=== PATIENT | male | born 1990 | race Caucasian/White ===

== ENCOUNTER 2017-05-15 02:38 | Inpatient (IN) | payer OTHER ==
[2017-05-15 03:05] VITALS: BMI 38.9
--- NOTE | 2017-05-15 03:08 | PDOC ---
History of Present Illness - General Chief Complaint: Tremors Stated Complaint: ABD PAIN/ALCOHOL WITHDRAWAL Time Seen by Provider: 05/15/17 03:01 History Source: Patient - History of Present Illness Initial Comments: 05/15/17 03:56 27-year-old male complaining of tremors, epigastric pain, yellowing of skin. Patient 1 month ago stopped drinking alcohol, patient was prior to an everyday drinker a pint of vodka daily. Patient reports since stopping alcohol patient has noted tremors, yellowing of skin and sclera with upper abdominal pain. Denies nausea, vomiting, bleeding, headache, dizziness.Patient reports that he is currently on herbal life detox supplements. Although withdrawal symptoms have gotten better, patient read online that he can get seizures which caused him to seek medical attention tonight. patient reports drinking continuously since age 16 and has been drinking heavily after father passing away. 05/15/17 06:08 Past History - Past Medical History Allergies/Adverse Reactions: Allergies Allergy/AdvReac Type Severity Reaction Status Date / Time No Known Allergies Allergy Verified 05/15/17 03:02 Home Medications: Ambulatory Orders Cephalexin [Keflex] 500 mg PO QID #40 capsule 12/06/15 Oxycodone HCl/Acetaminophen [Percocet 5-325 mg Tablet] 1 - 2 tab PO Q4H #20 tablet MDD 10 12/06/15 - Suicide/Smoking/Psychosocial Hx Smoking Status: No Smoking History: Never smoked Have you smoked in the past 12 months: No Number of Cigarettes Smoked Daily: 0 Information on smoking cessation initiated: No Hx Alcohol Use: Yes Drug/Substance Use Hx: No Substance Use Type: None Review of Systems - Review of Systems Able to Perform ROS?: Yes Is the patient limited Marshallese proficient: No Constitutional: No: Symptoms Reported, See HPI, Chills, Diaphoresis, Fever, Loss of Appetite, Malaise, Night Sweats, Weakness, Weight Stable, Unintentional Wgt. Loss, Unexplained wgt Loss, Other Integumentary: Yes: Change in Color (icteric sclera, jaundiced skin) Neurological: Yes: Tremors *Physical Exam - Vital Signs Last Vital Signs Temp Pulse Resp BP Pulse Ox 98.7 F 121 H 14 140/72 98 05/15/17 03:03 05/15/17 03:03 05/15/17 03:03 05/15/17 03:03 05/15/17 03:03 - Physical Exam General Appearance: Yes: Appropriately Dressed Gastrointestinal/Abdominal: positive: Normal Bowel Sounds, Tender (mild epigastric tender ness), Soft Integumentary: positive: Normal Color, Dry, Warm, Jaundice (icteric sclera and jaundix) Neurologic: positive: Fully Oriented, Alert, Normal Mood/Affect Heart Score/ECG Review - ECG Intrepretation Rhythm: Regular Rhythm Comment:: 05/15/17 05:07 105: sinus tachycardia; prolonged QT/QTC 394/520ms ED Treatment Course - LABORATORY CBC & Chemistry Diagram: 05/15/17 03:33 05/15/17 03:33 Medical Decision Making - Medical Decision Making 05/15/17 05:12 A: alocohol withdrawal P: cbc cmp magnesium LFTS 05/15/17 05:54 CTAP: Hepatosplenomegaly with nodule liver contour and multiple collateral vessels anteriorly abdomen and right retroperitoneum, suspicious for cirrhosis and portal hypertension. He portal vein. No bowel obstruction colitis diverticulitis, free fluid or free air. Normal appendix unremarkable pancreas kidneys and gallbladder. Tiny umbilical hernia containing fat. Minimal left gynecomastia. 05/15/17 06:09 patient signed out to Dr. Retana *DC/Admit/Observation/Transfer Diagnosis at time of Disposition: Hyperbilirubinemia, Prolonged Q-T interval on ECG Alcohol withdrawal Qualifiers: Complication of substance-induced condition: with unspecified complication Qualified Code(s): F10.239 - Alcohol dependence with withdrawal, unspecified Liver cirrhosis, alcoholic Qualifiers: Ascites presence: without ascites Qualified Code(s): K70.30 - Alcoholic cirrhosis of liver without ascites - Discharge Dispostion Admit: Yes - Referrals - Patient Instructions - Post Discharge Activity
[2017-05-15] MEDS ORDERED: FOLIC ACID INJECTION - 1 MG, THIAMINE HCL 100 MG, MULTIVIT INJECTION ADULT 10 ML in SOD... IVPB ONE (03:09)
[2017-05-15] MEDS ORDERED: chlordiazePOXIDE HCL 25 MG CAPSULE PO ONE (03:22)
--- NOTE | 2017-05-15 04:09 | PDOC ---
*Physical Exam - Vital Signs Last Vital Signs Temp Pulse Resp BP Pulse Ox 98.7 F 121 H 14 140/72 98 05/15/17 03:03 05/15/17 03:03 05/15/17 03:03 05/15/17 03:03 05/15/17 03:03 ED Treatment Course - LABORATORY CBC & Chemistry Diagram: 05/15/17 03:33 05/15/17 03:33 - ADDITIONAL ORDERS Additional order review: Laboratory Results 05/15/17 03:33 Total Amylase 30 Medical Decision Making - Medical Decision Making 05/15/17 04:09 agree with care from WALESKA Cleary *DC/Admit/Observation/Transfer Diagnosis at time of Disposition: Alcohol withdrawal, Hyperbilirubinemia, Liver cirrhosis, alcoholic, Prolonged Q -T interval on ECG - Referrals - Patient Instructions - Post Discharge Activity
[2017-05-15 04:22] LABS: ALBUMIN 2.5 g/dl (3.4-5.0); ANION GAP 9 (8-16); BLOOD UREA NITROGEN 13 mg/dL (7-18); CALCIUM 7.7 mg/dL (8.5-10.1); CHLORIDE 94 mmol/L (98-107); CO2 29 mmol/L (21-32); CREATININE 0.6 mg/dL (0.7-1.3); GLUCOSE,RANDOM 100 mg/dL (74-106); LIPASE 102 U/L (73-393); SGPT/ALT 48 U/L (12-78); SODIUM 132 mmol/L (136-145)
[2017-05-15] MEDS ORDERED: chlordiazePOXIDE HCL 25 MG CAPSULE ONE ×2 (04:23→10:22)
[2017-05-15 04:24] LABS: ALK PHOS 205 U/L (45-117); BILIRUBIN,TOTAL 11.3 mg/dL (0.2-1.0)
[2017-05-15 04:25] LABS: POTASSIUM 3.7 mmol/L (3.5-5.1); SGOT/AST 134 U/L (15-37)
[2017-05-15] MEDS ORDERED: SODIUM CHLORIDE 1,000 ML IV STA (05:09)
[2017-05-15 05:37] LABS: HEMATOCRIT 37.7 % (35.4-49); RBC 3.91 M/mm3 (4.00-5.60); WHITE BLOOD COUNT 8.2 K/mm3 (4.0-10.0)
[2017-05-15 05:38] LABS: BASO % 0.9 % (0-2.0); EOS % 4.3 % (0-4.5); LYMPH % 15.6 % (8-40); MCH 33.3 pg (25.7-33.7); MCHC 34.6 g/dl (32.0-35.9); MEAN CELL VOLUME 96.3 fl (80-96); MEAN PLT VOLUME 9.9 fl (7.5-11.1); MONO % 12.1 % (3.8-10.2); NEUT % 67.1 % (42.8-82.8); PLATELET COUNT 86 K/MM3 (134-434); RDW 14.4 % (11.9-15.9)
[2017-05-15] MEDS ORDERED: chlordiazePOXIDE HCL 25 MG CAPSULE PO PRN (06:08)
[2017-05-15 06:10] LABS: URINE APPEARANCE CLEAR; URINE BLOOD NEGATIVE (NEGATIVE); URINE GLUCOSE (UA) NEGATIVE (NEGATIVE); URINE KETONE TRACE (NEGATIVE); URINE LEUK ESTERASE NEGATIVE (NEGATIVE); URINE NITRITE NEGATIVE (NEGATIVE); URINE PROTEIN NEGATIVE (NEGATIVE); URINE UROBILINOGEN 4.0 E.U/dl mg/dL (0.2-1.0)
[2017-05-15 06:12] LABS: URINE COLOR DARK YELLOW
--- NOTE | 2017-05-15 10:05 | CON.GI ---
Consult Consult Specialty:: GI Reason for Consultation:: cirrhosis - History of Present Illness History of Present Illness: Chart reviewed. 27 yo M w/ significant h/o alcohol dependence presented to the ED with abd pain x 2 days. Patient endorses daily drinking of 1 pint of hard liquor since age of 16. He has never stopped drinking or been sober. He has also never been through alcohol detox/rehab. His last drink was 2 months ago and he started detoxing himself using herbal supplement with good result. However, he started to notice tremors 2 weeks ago and abd pain 2 days ago which made him come in to the ED. At the time of this encounter, the patient is calm, asymptomatic. States tremors improved with medications he received in ED. His only complaint is developing tremors x 2 weeks 2 months after complete sensation of alcohol. Denies fever, chills, nausea, vomiting, hematemesis, dysphagia, odynophagia, jaundice, abdominal pain, fluctuating abdominal girth, altered bowels, pencil- thin, or ribbon-like stools. Denies melena, hematochezia, weight loss. Never had liver work up, or EGD. - History Source History Provided By: Patient, Medical Record - Alcohol/Substance Use Hx Alcohol Use: Yes - Smoking History Smoking history: Never smoked Have you smoked in the past 12 months: No Aproximately how many cigarettes per day: 0 Home Medications - Allergies Allergies/Adverse Reactions: Allergies Allergy/AdvReac Type Severity Reaction Status Date / Time No Known Allergies Allergy Verified 05/15/17 03:02 - Home Medications Home Medications: Ambulatory Orders NK [No Known Home Medication] 05/15/17 Family Disease History - Family Disease History Family History: Unremarkable Review of Systems Findings/Remarks: as per HPI, H&P Physical Exam-GI Vital Signs: Vital Signs Temperature 98.7 F 05/15/17 03:03 Pulse Rate 121 H 05/15/17 03:03 Respiratory Rate 14 05/15/17 03:03 Blood Pressure 140/72 05/15/17 03:03 O2 Sat by Pulse Oximetry (%) 98 05/15/17 03:03 Constitutional: Yes: Well Nourished, No Distress, Calm Eyes: Yes: Conjunctiva Clear HENT: Yes: Atraumatic Neck: Yes: Supple Cardiovascular: Yes: Regular Rate and Rhythm Respiratory: Yes: Regular Gastrointestinal Inspection: No: Ascites, Distention ...Auscultate: Yes: Normoactive Bowel Sounds ...Palpate: Yes: Soft. No: Firm/Rigid, Guarding, Mass, Tenderness, Tenderness, Rebound ...Percussion: No: Fluid Wave Neurological: Yes: Alert, Oriented Labs: CBC, BMP 05/15/17 03:33 05/15/17 03:33 Laboratory Tests 05/15/17 05/15/17 05/15/17 03:30 03:33 03:33 WBC 8.2 RBC 3.91 L Hgb 13.0 Hct 37.7 MCV 96.3 H MCH 33.3 MCHC 34.6 RDW 14.4 Plt Count 86 L MPV 9.9 Neutrophils % 67.1 Lymphocytes % 15.6 Monocytes % 12.1 H Eosinophils % 4.3 Basophils % 0.9 PT with INR INR PTT (Actin FS) Sodium 132 L Potassium 3.7 Chloride 94 L Carbon Dioxide 29 Anion Gap 9 BUN 13 Creatinine 0.6 L Creat Clearance w eGFR > 60 Random Glucose 100 Calcium 7.7 L Magnesium 1.3 L Total Bilirubin 11.3 H Direct Bilirubin AST 134 H ALT 48 Alkaline Phosphatase 205 H Total Protein 8.0 Albumin 2.5 L Total Amylase Lipase 102 Vitamin B12 Urine Color Urine Appearance Urine pH Ur Specific [place] Urine Protein Urine Glucose (UA) Urine Ketones Urine Blood Urine Nitrite Urine Bilirubin Urine Urobilinogen Ur Leukocyte Esterase Alcohol, Quantitative 05/15/17 05/15/17 05/15/17 03:33 03:33 05:56 WBC RBC Hgb Hct MCV MCH MCHC RDW Plt Count MPV Neutrophils % Lymphocytes % Monocytes % Eosinophils % Basophils % PT with INR INR PTT (Actin FS) Sodium Potassium Chloride Carbon Dioxide Anion Gap BUN Creatinine Creat Clearance w eGFR Random Glucose Calcium Magnesium Total Bilirubin Direct Bilirubin AST ALT Alkaline Phosphatase Total Protein Albumin Total Amylase 30 Lipase Vitamin B12 Urine Color Dark yellow Urine Appearance Clear Urine pH 6.0 Ur Specific [place] 1.008 Urine Protein Negative Urine Glucose (UA) Negative Urine Ketones Trace H Urine Blood Negative Urine Nitrite Negative Urine Bilirubin 2.0 Urine Urobilinogen 4.0 e.u/dl Ur Leukocyte Esterase Negative Alcohol, Quantitative < 5.0 05/15/17 05/15/17 05/16/17 10:30 10:30 06:20 WBC 6.5 RBC 3.83 L Hgb 12.3 Hct 37.2 MCV 97.4 H MCH 32.3 MCHC 33.1 RDW 14.9 Plt Count 88 L MPV 9.7 Neutrophils % 54.7 Lymphocytes % 22.3 D Monocytes % 15.1 H Eosinophils % 6.5 H Basophils % 1.4 PT with INR 20.20 H INR 1.79 H PTT (Actin FS) Sodium Potassium Chloride Carbon Dioxide Anion Gap BUN Creatinine Creat Clearance w eGFR Random Glucose Calcium Magnesium Total Bilirubin Direct Bilirubin 7.7 H AST ALT Alkaline Phosphatase Total Protein Albumin Total Amylase Lipase Vitamin B12 Urine Color Urine Appearance Urine pH Ur Specific [place] Urine Protein Urine Glucose (UA) Urine Ketones Urine Blood Urine Nitrite Urine Bilirubin Urine Urobilinogen Ur Leukocyte Esterase Alcohol, Quantitative 05/16/17 05/16/17 05/16/17 06:20 06:20 06:20 WBC RBC Hgb Hct MCV MCH MCHC RDW Plt Count MPV Neutrophils % Lymphocytes % Monocytes % Eosinophils % Basophils % PT with INR 19.20 H INR 1.70 H PTT (Actin FS) 33.7 Sodium 135 L Potassium 3.0 L Chloride 101 Carbon Dioxide 26 Anion Gap 8 BUN 5 L D Creatinine 0.4 L D Creat Clearance w eGFR > 60 Random Glucose 88 Calcium 7.4 L Magnesium Total Bilirubin 9.9 H Direct Bilirubin AST 103 H D ALT 42 Alkaline Phosphatase 180 H Total Protein 7.0 Albumin 2.2 L Total Amylase Lipase Vitamin B12 2712 H Urine Color Urine Appearance Urine pH Ur Specific [place] Urine Protein Urine Glucose (UA) Urine Ketones Urine Blood Urine Nitrite Urine Bilirubin Urine Urobilinogen Ur Leukocyte Esterase Alcohol, Quantitative 05/16/17 06:20 WBC RBC Hgb Hct MCV MCH MCHC RDW Plt Count MPV Neutrophils % Lymphocytes % Monocytes % Eosinophils % Basophils % PT with INR INR PTT (Actin FS) Sodium Potassium Chloride Carbon Dioxide Anion Gap BUN Creatinine Creat Clearance w eGFR Random Glucose Calcium Magnesium 1.7 L D Total Bilirubin Direct Bilirubin 7.3 H AST ALT Alkaline Phosphatase Total Protein Albumin Total Amylase Lipase Vitamin B12 Urine Color Urine Appearance Urine pH Ur Specific [place] Urine Protein Urine Glucose (UA) Urine Ketones Urine Blood Urine Nitrite Urine Bilirubin Urine Urobilinogen Ur Leukocyte Esterase Alcohol, Quantitative Imaging - Results Cat Scan: Report Reviewed Problem List - Problems (1) Alcohol withdrawal Code(s): F10.239 - ALCOHOL DEPENDENCE WITH WITHDRAWAL, UNSPECIFIED Qualifiers: Complication of substance-induced condition: with unspecified complication Qualified Code(s): F10.239 - Alcohol dependence with withdrawal, unspecified (2) Liver cirrhosis, alcoholic Code(s): K70.30 - ALCOHOLIC CIRRHOSIS OF LIVER WITHOUT ASCITES Qualifiers: Ascites presence: without ascites Qualified Code(s): K70.30 - Alcoholic cirrhosis of liver without ascites Assessment/Plan A 27 yom with alcoholic liver cirrhosis. Portal hypertension. No ascites, HRS. MELD 21. DF 48 r/o other concurrent liver processes incl viral. Withdrawal protocol and electrolytes correction as needed. Plan EGD for EGV surveillance ? steroids if HBV negative ? Counselling.
[2017-05-15 10:58] LABS: INR 1.79 (0.82-1.09); PROTHROMBIN TIME (PATIENT) 20.2 SEC (9.98-11.88)
[2017-05-15] MEDS ORDERED: chlordiazePOXIDE HCL 25 MG CAPSULE PO SCH (11:00)
--- NOTE | 2017-05-15 12:00 | EKG ---
Test Reason : Blood Pressure : / mmHG Vent. Rate : 105 BPM Atrial Rate : 105 BPM P-R Int : 136 ms QRS Dur : 086 ms QT Int : 394 ms P-R-T Axes : 051 001 022 degrees QTc Int : 520 ms SINUS TACHYCARDIA PROLONGED QT ABNORMAL ECG NO PREVIOUS ECGS AVAILABLE Confirmed by CAPRICE VELAZQUEZ MD ([id number]) on 05/15/2017 12:00:16 PM Referred By: Confirmed By:CAPRICE VELAZQUEZ MD
--- NOTE | 2017-05-15 13:13 | PN ---
Teaching Attending Note Name of Resident: Danielito Meeks ATTENDING PHYSICIAN STATEMENT I saw and evaluated the patient. I reviewed the resident's note and discussed the case with the resident. I agree with the resident's findings and plan as documented. SUBJECTIVE: CC: upper abd pain and jaundice . HPI: 27 y/o man with h/o alcohol dependence , quit 2 months ago , who presented with upper abd pain and jaundice. he used to drink one Pint of alcohol a day and stopped 2 months ago. He experienced mild withdrawal sx at that time. 2 weeks ago, he started having tremors and for this he started taking natural products for detox. he denies any recent alcohol use. 2 weeks ago he started noticing jaundice , and 1 week ago he had abd pain in epigastric area. No fever , chills, hematochezia, melena , pale stool or dark urine. denies any N /V. OBJECTIVE: NAD , round equal pupils , reactive to light , no facial droop, tongue and uvula at mid line MMM, no LAP in neck, jaundiced MM, icteric sclera. no JVD CV: RRR, no MRG Lungs : CATB Abd: soft, NT, ND , NO shifting dullness, LIver is palpated 5 cm below costal margin at Mid clavicular line. spleen is not palpated . Nl BS Ext: no edema . No erythema . ASSESSMENT AND PLAN: 27 y/o man with h/o alcohol dependence , quit 2 months ago, who presented with upper abd pain and jaundice. 1- Jaundice: likely from cirrhosis , but need to r/o any biliary tree pathology ( stone /cholangiocarcinoma ). CT scan reviewed. No suspicion clinically for cholecystitis . - obtain MRCP. - GI consult pending. - might need EGD to r/o varices. - Check Occult blood in stool. - avoid hepatotoxics 2- Alcohol dependence. quit 2 months ago. was tachycardic with minimal tremor reported at presentation . - if this is true ( quit 2 months ago), then he is not in WD - was started on Libruim last night. will place on PRN ativan ( liver injury) . - received banana bag. No signs of Wernicke's - give thiamine and folate daily 3- abd pain, likely due to hepatomegaly.could be due to gastritis . no evidence of pancreatitis . now resolved - MRCP as above - possible EGD - PPI SCDs . ambulatory
[2017-05-15] MEDS ORDERED: LORazepam 1 MG TABLET PO PRN (13:22)
[2017-05-15] MEDS: PANTOPRAZOLE 40 MG TABLET (FP) PO SCH (13:35)
--- NOTE | 2017-05-15 14:44 | HP ---
CC: Abd pain PCP: None HPI: 27 yo M w/ significant h/o alcohol dependence presented to the ED with abd pain x 2 days. Patient endorses daily drinking of 1 pint of hard liquor since age of 16. He has never stopped drinking or been sober. He has also never been through alcohol detox/rehab. His last drink was 2 months ago and he started detoxing himself using herbal supplement with good result. However, he started to notice tremors 2 weeks ago and abd pain 2 days ago which made him come in to the ED. The abd pain is located in upper quadrants, travels from L/R to R/L, vague quality, 10/14, no alleviating or aggravating factors, not a/w food intake or bowel movement. Denies fever, chills, dizziness, chest pain, sob, urinary sx, diarrhea, constipation, n/v, visual/auditory/tactile hallucination. PMH: None PSH: None Social History: Born and raised in [place]. Lives at home. 1 pint of hard liquor everyday since age 16, denies smoking and drug use Family History: Father of liver complication from chronic alcohol use, mother alive and has HTN. Allergy: NKDA Home Meds: None ROS: Constitutional: no fever, +loss of appetite, no weakness or weight change HEENT: +yellowing of eyes and tongue, No headache, nasal congestion, sore throat , ear pain, vision change Skin: No rash or lesion Cardiovascular: No chest pain or sob Pulmonary: No cough (dry or productive), colored sputum Endocrine: No polyuria, polydipsia, skin /hair changes, heat/cold intolerance. GI: +abd pain, no nausea or vomiting : No frequency, urgency, dysuria, or hematuria. MSK: No joint or muscle pain Psychology: No depression, anxiety, or insomnia. Physical Examination Temp Pulse Resp BP Pulse Ox 98.4 F 91 H 16 105/53 98 05/15/17 11:57 05/15/17 11:57 05/15/17 11:57 05/15/17 11:57 05/15/17 11:57 General: Patient sitting at edge of bed, in no obvious discomfort or distress, AAO x 3. able to speak full sentences, appropriate to stated age. ENT: sclerus icterus, Jaundice in oropharynx, ventral tongue, however, clear with no lesions/erythema. Neck: Supple with no LAD or masses. Lymph Nodes: No cervical or inguinal LAD. Cardiovascular: Tachycardic, regular rythm, S1 and S2 normal, no m/g/r. Lungs: CTAB Abdomen: normoactive bs, nd, nt, 2-3 cm liver palpated below costal edge. Extremeties: No peripheral edema, +2 peripheral pulses Neuro: CNII-XII grossly intact, gait normal, negative finger to nose test, mild tremor noted on outstretched hands Imaging: CT abd on 05/15: hepatosplenomegaly, hypodense and heterogeneous pelvic parenchyma and varices. EKG on 05/15: NSR, 105bmp, Prolonged QTc 520. A/P: 27 yo M w/ significant h/o alcohol dependence admitted for alcohol withdrawal. Alcohol withdrawal - With autonomic instability: tachycardia and hypotension and mild tremors - d/c librium protocol in light of liver cirrhosis - Ativan 1mg Q4H PRN for withdrawal sx - PO thiamine and folic acid - B12 level Jaundice - 2/2 Liver cirrhosis from chronic alcohol use (AST:ALT = 2:1) - Likely intrahepatic injury but cannot r/o extrahepatic obstruction based on indirect/direct bili * MRCP scheduled - Cont. to trend LFT - GI consult * may need EGD to r/o varices * f/u occult blood QT prolongation - QTc 520 - Daily EKG to monitor changes - Avoid QT prolonging medications Hyponatremia - Mild - Likely hypovolumic hyponatremia - Cont. to monitor FEN - IVF not indicated - Replete lytes prn - Regular diet Prophylaxis - DVT: SCDs - GI: on protonix Dispo - Admit for autonomic instability due to alcohol withdrawal - Pt interested in alcohol detox upon medical stabilization, Will d/c to [facility] for alcohol detox Danielito Meeks MD, Medicine PGY2 Pager: [phone] Visit type - Emergency Visit Emergency Visit: Yes ED Registration Date: 05/15/17 Care time: The patient presented to the Emergency Department on the above date and was hospitalized for further evaluation of their emergent condition. - New Patient This patient is new to me today: Yes Date on this admission: 05/15/17 - Critical Care Critical Care patient: No
[2017-05-15] MEDS ORDERED: MAGNESIUM SULF 50% (8.12 MEQ/2 ML-1 GM VIAL) IVPB ONE (16:36)
[2017-05-15] MEDS ORDERED: MAGNESIUM SULFATE IN WATER 2 GM/50 ML IVPB IVPB ONE (16:45)
[2017-05-15] MEDS ORDERED: FLU VACCINE QUAD 60 MCG/0.5 ML (MDV 17-18) IM ONE (17:30)
[2017-05-16 07:47] LABS: BASO % 1.4 % (0-2.0); EOS % 6.5 % (0-4.5); HEMATOCRIT 37.2 % (35.4-49); HEMOGLOBIN 12.3 GM/dL (11.7-16.9); INR 1.7 (0.82-1.09); LYMPH % 22.3 % (8-40); MCH 32.3 pg (25.7-33.7); MCHC 33.1 g/dl (32.0-35.9); MEAN CELL VOLUME 97.4 fl (80-96); MEAN PLT VOLUME 9.7 fl (7.5-11.1); MONO % 15.1 % (3.8-10.2); NEUT % 54.7 % (42.8-82.8); PLATELET COUNT 88 K/MM3 (134-434); PROTHROMBIN TIME (PATIENT) 19.2 SEC (9.98-11.88); RBC 3.83 M/mm3 (4.00-5.60); RDW 14.9 % (11.9-15.9); WHITE BLOOD COUNT 6.5 K/mm3 (4.0-10.0)
[2017-05-16 07:49] LABS: BILIRUBIN,DIRECT 7.3 mg/dL (0.0-0.2); MAGNESIUM 1.7 mg/dL (1.8-2.4)
[2017-05-16 07:50] LABS: ACTIVATED PTT 33.7 SECONDS (26.9-34.4)
[2017-05-16 07:53] LABS: ALBUMIN 2.2 g/dl (3.4-5.0); ANION GAP 8 (8-16); BLOOD UREA NITROGEN 5 mg/dL (7-18); CALCIUM 7.4 mg/dL (8.5-10.1); CHLORIDE 101 mmol/L (98-107); CO2 26 mmol/L (21-32); GLUCOSE,RANDOM 88 mg/dL (74-106); SODIUM 135 mmol/L (136-145)
[2017-05-16 07:57] LABS: ALK PHOS 180 U/L (45-117); BILIRUBIN,TOTAL 9.9 mg/dL (0.2-1.0); CREATININE 0.4 mg/dL (0.7-1.3); SGOT/AST 103 U/L (15-37); SGPT/ALT 42 U/L (12-78)
[2017-05-16] MEDS ORDERED: POTASSIUM CHLORIDE TABS 20 MEQ TABLET.ER (FP) PO ONE (09:15)
[2017-05-16] MEDS ORDERED: THIAMINE HCL 100 MG TABLET (FP) PO SCH ×2 (10:00→22:00)
[2017-05-16] MEDS: PANTOPRAZOLE 40 MG TABLET (FP) PO SCH ×3 (10:36→21:35)
[2017-05-16] MEDS: FOLIC ACID 1 MG TABLET (FP) PO SCH (10:36)
[2017-05-16] MEDS ORDERED: chlordiazePOXIDE HCL 25 MG CAPSULE PO SCH ×2 (11:00→23:00)
--- NOTE | 2017-05-16 13:49 | PROC ---
Endoscopy Procedure Endoscopy procedure completed. Please see scanned procedure report. 3 columns esophageal varices, grade III, w/o stigmata of bleeding. Banded Portal hypertensive gastropathy noted, biopsied ppi bid carafate nadolol clear liquid diet
--- NOTE | 2017-05-16 13:56 | EKG ---
Test Reason : Blood Pressure : / mmHG Vent. Rate : 089 BPM Atrial Rate : 089 BPM P-R Int : 132 ms QRS Dur : 094 ms QT Int : 404 ms P-R-T Axes : 037 -12 018 degrees QTc Int : 491 ms NORMAL SINUS RHYTHM PROLONGED QT ABNORMAL ECG WHEN COMPARED WITH ECG OF 16-MAY-2017 08:42, NO SIGNIFICANT CHANGE WAS FOUND Confirmed by DORIS RODGERS MD ([id number]) on 05/16/2017 1:56:05 PM Referred By: Confirmed By:DORIS RODGERS MD
--- NOTE | 2017-05-16 14:15 | EKG ---
Test Reason : Blood Pressure : / mmHG Vent. Rate : 096 BPM Atrial Rate : 096 BPM P-R Int : 138 ms QRS Dur : 086 ms QT Int : 400 ms P-R-T Axes : 039 -10 019 degrees QTc Int : 505 ms NORMAL SINUS RHYTHM POOR R WAVE PROGRESSION ABNORMAL ECG WHEN COMPARED WITH ECG OF 15-MAY-2017 04:33, NO SIGNIFICANT CHANGE WAS FOUND Confirmed by DORIS RODGERS MD ([id number]) on 05/16/2017 2:15:42 PM Referred By: Confirmed By:DORIS RODGERS MD
[2017-05-16] MEDS ORDERED: NADOLOL 20 MG TABLET (FP) ONE (14:59)
[2017-05-16] MEDS: SUCRALFATE 1 GM/10 ML UNIT DOSE CUPS PO SCH ×3 (15:00→21:35)
[2017-05-16] MEDS: NADOLOL 40 MG TABLET (FP) PO SCH (15:11)
--- NOTE | 2017-05-16 15:15 | PN ---
Physical Exam: SUBJECTIVE: Patient seen and examined at bedside. No acute events over night , denies any abdominal pain , N/V/D/C. no tremor , no confusion or any withdrawal symptoms. OBJECTIVE: Vital Signs Period Temp Pulse Resp BP Sys/Bernard Pulse Ox Last 24 Hr 97.8 F-98.6 F 86-110 18-21 91-125/41-80 96-100 GENERAL: AAOx3 , in NAD HEAD: NC/AT EYES: PERRL, EOMI , sclera icteric, conjunctiva clear. ENT: moist mucous membranes. NECK: full range of motion, supple.No JVD LUNGS: CTA B/L , no wheezes, no crackles, no accessory muscle use. HEART: RRR, S1, S2 without murmur, rub or gallop. ABDOMEN: Soft, nontender, nondistended, normoactive bowel sounds, no guarding, no rebound, hepatomegaly is palpable 5 cm below costal margine, spleen not palpable, no shifting dullness. EXTREMITIES: 2+ pulses, warm, well-perfused, no edema. peripheral skin pigmentation NEUROLOGICAL:No focal deficit . Normal speech, gait not observed. PSYCH: Normal mood, normal affect. SKIN: Warm, dry, Laboratory Results - last 24 hr 05/16/17 05/16/17 05/16/17 06:20 06:20 06:20 WBC 6.5 RBC 3.83 L Hgb 12.3 Hct 37.2 MCV 97.4 H MCH 32.3 MCHC 33.1 RDW 14.9 Plt Count 88 L MPV 9.7 Neutrophils % 54.7 Lymphocytes % 22.3 D Monocytes % 15.1 H Eosinophils % 6.5 H Basophils % 1.4 PT with INR 19.20 H INR 1.70 H PTT (Actin FS) 33.7 Sodium 135 L Potassium 3.0 L Chloride 101 Carbon Dioxide 26 Anion Gap 8 BUN 5 L D Creatinine 0.4 L D Creat Clearance w eGFR > 60 Random Glucose 88 Calcium 7.4 L Magnesium Ferritin Total Bilirubin 9.9 H Direct Bilirubin AST 103 H D ALT 42 Alkaline Phosphatase 180 H Total Protein 7.0 Albumin 2.2 L Vitamin B12 05/16/17 05/16/17 05/16/17 06:20 06:20 10:30 WBC RBC Hgb Hct MCV MCH MCHC RDW Plt Count MPV Neutrophils % Lymphocytes % Monocytes % Eosinophils % Basophils % PT with INR INR PTT (Actin FS) Sodium Potassium Chloride Carbon Dioxide Anion Gap BUN Creatinine Creat Clearance w eGFR Random Glucose Calcium Magnesium 1.7 L D Ferritin 369.574 H Total Bilirubin Direct Bilirubin 7.3 H AST ALT Alkaline Phosphatase Total Protein Albumin Vitamin B12 2712 H Active Medications Generic Name Dose Route Start Last Admin Trade Name Freq PRN Reason Stop Dose Admin Folic Acid 1 mg 05/16/17 10:00 05/16/17 10:36 Folic Acid - PO 1 mg DAILY JAIDEN Administration Lorazepam 1 mg 05/15/17 13:22 05/16/17 02:45 Ativan - PO 1 mg Q4H PRN Administration WITHDRAWAL(CONT SUBST) Nadolol 40 mg 05/16/17 14:00 05/16/17 15:11 Corgard - PO 40 mg DAILY JAIDEN Administration Pantoprazole Sodium 40 mg 05/16/17 14:00 05/16/17 15:00 Protonix - PO 40 mg BID JAIDEN Administration Sucralfate 1 gm 05/16/17 14:00 05/16/17 15:00 Carafate Oral Suspension - PO 1 gm QID JAIDEN Administration Thiamine HCl 100 mg 05/16/17 10:00 05/16/17 10:36 Vitamin B1 - PO 100 mg DAILY JAIDEN Administration CBC, BMP 05/16/17 06:20 05/16/17 06:20 CT abd on 05/15: hepatosplenomegaly, hypodense and heterogeneous pelvic parenchyma and varices. EKG on 05/15: NSR, 105bmp, Prolonged QTc 520. MRI Abdomen 05/16 : Hepatosplenomegaly with cirrhotic liver feature Assesment and plan : 27 yo M w/ significant h/o alcohol dependence last drink 2 months ago, presented with abdominal pain and jaundice admitted to med-surg for further evaluation and treatment. # Jaundice * 2/2 Liver cirrhosis from chronic alcohol use (AST:ALT > 2:1) * Likely intrahepatic injury , CT r/o extrahepatic obstruction * Ativan 1mg Q4H PRN for withdrawal sx * PO thiamine and folic acid * B12 level * direct bili * MRCP with no biliary tree dilation * monitor LFT * GI consult * EGD :grade III varices , banded . portal gastropathy * started on Nadolol 40 mg po daily , Sucralfat 1 gm PO QID * continue PPI * discuss with GI the need for steroid use to tretat alcoholic hepatitis * iron studies * AFP * Hep A,B panel , HCV ab * transglutaminase IGG, IGA , smooth muscle AB stat, IGG immunoglobulin , * CMV IGM , MARIA R # Alcohol dependence * no signs of withdrawal * last drink 2 months ago * Ativan PRN for withdrawal symptoms only, received one dose last night * Urine toxicology * Libirium protocol per dr armas and pental vitamins 1 tab Q daily #QT prolongation * QTc 520 * Daily EKG to monitor changes * Avoid QT prolonging medications # Hyponatremia, improving , Likely hypovolumic hyponatremia * Cont. to monitor # Hypokalemia * K 3.0 today AM * K-Dur 40 meq replinished * 20 meq K-dur po BID per chanda * repeat in AM #FEN * IVF not indicated * Replete lytes prn * Regular diet #Prophylaxis * DVT: SCDs, early ambulation * GI: on protonix 40 mg BID * flue vaccine #Dispo * monitor in med-surg Visit type - Emergency Visit Emergency Visit: Yes ED Registration Date: 05/15/17 Care time: The patient presented to the Emergency Department on the above date and was hospitalized for further evaluation of their emergent condition. - New Patient This patient is new to me today: Yes Date on this admission: 05/16/17 - Critical Care Critical Care patient: No - Discharge Referral Referred to [facility] Med P.C.: No
--- NOTE | 2017-05-16 18:17 | PN ---
Teaching Attending Note Name of Resident: Nahum Saunders ATTENDING PHYSICIAN STATEMENT I saw and evaluated the patient. I reviewed the resident's note and discussed the case with the resident. I agree with the resident's findings and plan as documented. SUBJECTIVE: No fever or chills, has no abd pain , no N/V OBJECTIVE: NAD ,MMM, icteric sclera. no JVD CV: RRR, no MRG Lungs: CATB Abd: soft, NT, ND, NO shifting dullness, Liver is palpated 5 cm below costal margin at Mid clavicular line. spleen is not palpated . Nl BS Ext: no edema . No erythema . ASSESSMENT AND PLAN: 27 y/o man with h/o alcohol dependence , quit 2 months ago, who presented with upper abd pain and jaundice. 1- Jaundice: likely from alcoholic cirrhosis ,. MRCp did not show any biliary tree dilation . - EGD with grade III varices , banded . portal gastropathy - nadolol started - PPI - steroids were recommended for alcoholic hepatitis but pt did not drink in 2 months . will d/w GI the actual need - check AFP due to the finding in R hepatic lobe on MRCP - MRi with/wo might be indicated but can be done as out pt 2- Alcohol dependence. quit 2 months ago. no signs of withdrawal. received one dose of ativan last night , but no actual sx of withdrawal - PRN ativan , monitor SCDs . ambulatory
--- NOTE | 2017-05-16 18:45 | CONSULT ---
Consult Detox [facility] Reason for Current Admission/Consult: evaluate for alcohol use disorder Referred by:: carlos caro DO - History History of Present Illness: 27 y o m with ho severe alcohol uayad delacruz, 1 pint daily since age 16 admitted with abdo pain and tremors, reports he stopped drinking 1-2 months ago, was using herbal supplements but may have had drink night before admission, hard to determine frequency of alcohol use from patient. no complaints, recieved 50mg libirum in Ed and Ativan on floor. - History Source History Provided By: Patient, Medical Record, Caregiver Limitations to Obtaining History: No Limitations - Alcohol/Substance Use Hx Alcohol Use: Yes Hx Substance Use: No Hx Substance Use Treatment: No - Current Drug/Alcohol Use Alcohol Route: Oral Frequency: 1-3 times last 30 days Amount used: 1 pint spirits when he drinks, frequency difficult to determin Age of first use: 16 Date of Last Use: 05/13/17 - Past Medical History Hepatobiliary: Yes: Cirrhosis - Significant Medical Findings: 27 yo m with ho severe alcoholic liver disease admitted for GI bleed, denies recent alcohol use but story changes, was drinking 1 pint daily. no signs of withdrawal but given librium and ativan. reports tremors in legs and dificulty sleeping. otherwise no complaints. no ho seiuzres CIWA Score - CIWA Score Nausea/Vomitin-No Nausea/No Vomiting Muscle Tremors: 1-None Visible, but [place] Anxiety: 1-Mildly Anxious Agitation: 1-Slight > Activity Paroxysmal Sweats: 1-Minimal Palms Moist Orientation: 0-Oriented Tacttile Disturbances: 0-None Auditory Disturbances: 0-None Visual Disturbances: 0-None Headache: 0-None Present CIWA-Ar Total Score: 4 Assessment Plan - Diagnosis (1) Alcohol dependence with uncomplicated withdrawal Status: Acute (2) Hyperbilirubinemia Status: Acute (3) Liver cirrhosis, alcoholic Status: Acute Qualifiers: Ascites presence: without ascites Qualified Code(s): K70.30 - Alcoholic cirrhosis of liver without ascites (4) Hypokalemia Status: Acute (5) Macrocytosis Status: Acute (6) Dehydration Status: Acute - Plan Plan: chart, imaging, labs reviewed, discussed care with medical providers, examined patient and history taken. not convinced of history of no recent alcohol use. tolerated libirum and ativan given to him isince admission, now sitting comfortably at bedside with family around him, reports only tremors in legs, fine tremor of hand also noted with some perspiration Recommend: 1. hydrate, replace K, folic acid, thiamine, mvi ordered, check utox 2. librium taper on reduced dose in light of liver disease, elevated lfts and history can dc if not needed at any time, hold fro sedation. 3. refer for intensive outpatient counseling for aftercare. 4. liver cirrhosis as per primary team/GI Sanjiv Pham MD [phone] - Medication Detox Regimen/Protocol: Librium
[2017-05-16] MEDS ORDERED: chlordiazePOXIDE HCL 25 MG CAPSULE PO PRN (19:17)
[2017-05-16] MEDS: POTASSIUM CHLORIDE TABS 20 MEQ TABLET.ER (FP) PO SCH (21:35)
[2017-05-16] MEDS: chlordiazePOXIDE HCL 25 MG CAPSULE PO SCH (22:32)
[2017-05-16 22:54] LABS: COCAINE, UR NEGATIVE ng/ml (CUTOFF=300); METHADONE, UR NEGATIVE ng/ml (CUTOFF=300); OPIATES, URI NEGATIVE ng/ml (CUTOFF=300); PHENCYCLIDINE,URINE NEGATIVE ng/ml (CUTOFF=25); URINE AMPHETAMINES NEGATIVE ng/ml (CUTOFF=500); URINE BARBITURATES NEGATIVE ng/ml (CUTOFF=200)
[2017-05-16 22:56] LABS: URINE BENZODIAZEPINES POSITIVE ng/ml (CUTOFF=200)
[2017-05-17] MEDS: chlordiazePOXIDE HCL 25 MG CAPSULE PO SCH ×2 (05:20→11:12)
[2017-05-17 06:06] LABS: CMV IgM < 30.0 AU/mL (0.0-29.9); SERUM IRON SATURATION 69 % (15-55); TOTAL IRON BINDING CAPACITY 154 ug/dL (250-450); UIBC 47 ug/dL (111-343)
[2017-05-17 07:32] LABS: BASO % 1.3 % (0-2.0); EOS % 5.6 % (0-4.5); HEMATOCRIT 40.7 % (35.4-49); HEMOGLOBIN 13.6 GM/dL (11.7-16.9); LYMPH % 22.2 % (8-40); MCH 32.6 pg (25.7-33.7); MCHC 33.3 g/dl (32.0-35.9); MEAN PLT VOLUME 8.9 fl (7.5-11.1); MONO % 12.8 % (3.8-10.2); NEUT % 58.1 % (42.8-82.8); PLATELET COUNT 99 K/MM3 (134-434); RBC 4.16 M/mm3 (4.00-5.60); RDW 15.2 % (11.9-15.9); WHITE BLOOD COUNT 6.9 K/mm3 (4.0-10.0)
[2017-05-17 08:37] LABS: ALBUMIN 2.2 g/dl (3.4-5.0); ALK PHOS 186 U/L (45-117); ANION GAP 5 (8-16); BILIRUBIN,TOTAL 10.5 mg/dL (0.2-1.0); BLOOD UREA NITROGEN 6 mg/dL (7-18); CALCIUM 8.3 mg/dL (8.5-10.1); CHLORIDE 101 mmol/L (98-107); CO2 29 mmol/L (21-32); CREATININE 0.5 mg/dL (0.7-1.3); GLUCOSE,RANDOM 80 mg/dL (74-106); POTASSIUM 4.2 mmol/L (3.5-5.1); SGOT/AST 95 U/L (15-37); SGPT/ALT 45 U/L (12-78); SODIUM 135 mmol/L (136-145); TOT PROT 7.7 g/dl (6.4-8.2)
--- NOTE | 2017-05-17 08:37 | PN ---
Physical Exam: SUBJECTIVE: Patient seen and examined at bedside. no acute events over night , denies any fever, chills, N/V/D/C. denies any abdominal pain. denies any tremor lightheadedness or withdrawal symptoms , continue librium protocol, pending input to transfer to [facility] if needed. OBJECTIVE: Vital Signs Period Temp Pulse Resp BP Sys/Bernard Pulse Ox Last 24 Hr 97.8 F-98.9 F 79-97 18-21 91-125/41-79 96-100 GENERAL: AAOx3 , in NAD HEAD: NC/AT EYES: PERRL, EOMI , sclera icteric, conjunctiva clear. ENT: moist mucous membranes. NECK: full range of motion, supple.No JVD LUNGS: CTA B/L , no wheezes, no crackles, no accessory muscle use. HEART: RRR, S1, S2 without murmur, rub or gallop. ABDOMEN: Soft, nontender, nondistended, normoactive bowel sounds, no guarding, no rebound, hepatomegaly is palpable 5 cm below costal margine, spleen not palpable, no shifting dullness. no testical atrophy or gynecomastia EXTREMITIES: 2+ pulses, warm, well-perfused, no edema. peripheral skin pigmentation NEUROLOGICAL:No focal deficit . Normal speech, gait not observed. PSYCH: Normal mood, normal affect. SKIN: Warm, dry, Laboratory Results - last 24 hr 05/16/17 05/16/17 05/16/17 06:20 10:30 10:30 WBC RBC Hgb Hct MCV MCH MCHC RDW Plt Count MPV Neutrophils % Lymphocytes % Monocytes % Eosinophils % Basophils % Iron TIBC Iron Saturation Ferritin 369.574 H Vitamin B12 2712 H Stool Occult Blood Opiates Screen Methadone Screen Barbiturate Screen Phencyclidine Screen Ur Amphetamines Screen MDMA (Ecstasy) Screen Benzodiazepines Screen Cocaine Screen U Marijuana (THC) Screen IgG CMV IgM Ab < 30.0 Hepatitis C Antibody 0.2 05/16/17 05/16/17 05/16/17 10:30 10:30 21:40 WBC RBC Hgb Hct MCV MCH MCHC RDW Plt Count MPV Neutrophils % Lymphocytes % Monocytes % Eosinophils % Basophils % Iron 107 TIBC 154 L Iron Saturation 69 H Ferritin Vitamin B12 Stool Occult Blood Negative Opiates Screen Methadone Screen Barbiturate Screen Phencyclidine Screen Ur Amphetamines Screen MDMA (Ecstasy) Screen Benzodiazepines Screen Cocaine Screen U Marijuana (THC) Screen IgG 1874 H CMV IgM Ab Hepatitis C Antibody 05/16/17 05/17/17 21:45 06:00 WBC 6.9 RBC 4.16 Hgb 13.6 D Hct 40.7 MCV 98.0 H MCH 32.6 MCHC 33.3 RDW 15.2 Plt Count 99 L MPV 8.9 Neutrophils % 58.1 Lymphocytes % 22.2 Monocytes % 12.8 H Eosinophils % 5.6 H Basophils % 1.3 Iron TIBC Iron Saturation Ferritin Vitamin B12 Stool Occult Blood Opiates Screen Negative Methadone Screen Negative Barbiturate Screen Negative Phencyclidine Screen Negative Ur Amphetamines Screen Negative MDMA (Ecstasy) Screen Negative Benzodiazepines Screen Positive Cocaine Screen Negative U Marijuana (THC) Screen Negative IgG CMV IgM Ab Hepatitis C Antibody Active Medications Generic Name Dose Route Start Last Admin Trade Name Freq PRN Reason Stop Dose Admin Chlordiazepoxide HCl 25 mg 05/16/17 19:17 Librium - PO 05/19/17 19:16 Q4H PRN WITHDRAWAL(CONT SUBST) Chlordiazepoxide HCl 25 mg 05/16/17 23:00 05/17/17 05:20 Librium - PO 05/17/17 17:01 25 mg [id number] JAIDEN Administration Chlordiazepoxide HCl 15 mg 05/17/17 23:00 Librium - PO 05/18/17 17:01 [id number] JAIDEN Chlordiazepoxide HCl 10 mg 05/18/17 23:00 Librium - PO 05/19/17 17:01 [id number] JAIDEN Folic Acid 1 mg 05/16/17 10:00 05/16/17 10:36 Folic Acid - PO 1 mg DAILY JAIDEN Administration Nadolol 40 mg 05/16/17 14:00 05/16/17 15:11 Corgard - PO 40 mg DAILY JAIDEN Administration Pantoprazole Sodium 40 mg 05/16/17 14:00 05/16/17 21:35 Protonix - PO 40 mg BID JAIDEN Administration Potassium Chloride 20 meq 05/16/17 22:00 05/16/17 21:35 K-Dur - PO 20 meq BID JAIDEN Administration Multivit/Folic Acid/Iron 1 tab 05/17/17 10:00 Vitamins (Sjr) - PO DAILY JAIDEN Sucralfate 1 gm 02/09/18 14:00 05/16/17 21:35 Carafate Oral Suspension - PO 1 gm QID JAIDEN Administration Thiamine HCl 100 mg 05/16/17 22:00 05/16/17 21:35 Vitamin B1 - PO 100 mg HS JAIDEN Administration CBC, BMP 05/17/17 06:00 05/17/17 06:00 CT abd on 05/15: hepatosplenomegaly, hypodense and heterogeneous pelvic parenchyma and varices. EKG on 05/15: NSR, 105bmp, Prolonged QTc 520. MRI Abdomen 05/16 : Hepatosplenomegaly with cirrhotic liver features Assesment and plan : 27 yo M w/ significant h/o alcohol dependence last drink 2 months ago, presented with abdominal pain and jaundice admitted to med-surg for further evaluation and treatment. # Jaundice * 2/2 Liver cirrhosis from chronic alcohol use (AST:ALT > 2:1) * Likely intrahepatic injury , CT r/o extrahepatic obstruction * librium protocol per * PO thiamine and folic acid * direct bili 7.3 , total bili 9.3 improving * MRCP with no biliary tree dilation * monitor LFT AST 95, ALT 45 * GI consult * EGD :grade III varices , banded . portal gastropathy * started on Nadolol 40 mg po daily , Sucralfat 1 gm PO QID * continue PPI * will discuss with GI the need for steroid use to tretat alcoholic hepatitis * AFP pending * F/U Hep A,B panel , HCV ab * transglutaminase IGG, IGA , smooth muscle AB stat, IGG immunoglobulin , * CMV IGM , MARIA R pending # Alcohol dependence * no signs of withdrawal * last drink 2 months ago * Urine toxicology * Libirium protocol per dr armas and pental vitamins 1 tab Q daily # thrombocytopenia likely 2/2 cirrhosis vs direct alcohol effect on BM * PLt 99 * no active bleeding * monitor CBC #anemia likely 2/2 chronic disease vs alcohol effect * iron studies go with anemia of chronic disease * continue folic acid and thiamin * alcohol abstinence * monitor H/H * no active bleeding , occult blood is negative #QT prolongation * QTc 520 * Daily EKG to monitor changes * Avoid QT prolonging medications # Hyponatremia, improving , Likely hypovolumic hyponatremia * Cont. to monitor 135 today # Hypokalemia , resolved * K 3.0 today AM * K-Dur 40 meq replinished * 20 meq K-dur po BID per seewad * repeat in AM #FEN * IVF not indicated * Replete lytes prn * Regular diet #Prophylaxis * DVT: SCDs, early ambulation * GI: on protonix 40 mg BID * flue vaccine #Dispo * monitor in med-surg * pending dr escalante input to [facility] or to [facility] , last drink 2 months ago Visit type - Emergency Visit Emergency Visit: Yes ED Registration Date: 05/15/17 Care time: The patient presented to the Emergency Department on the above date and was hospitalized for further evaluation of their emergent condition. - New Patient This patient is new to me today: No - Critical Care Critical Care patient: No - Discharge Referral Referred to [facility] Med P.C.: No
[2017-05-17] MEDS ORDERED: NADOLOL 20 MG TABLET (FP) ONE (09:46)
[2017-05-17] MEDS ORDERED: PRENATAL VITAMINS W/ FOLIC ACID TABLET (FP) PO SCH (10:00)
[2017-05-17] MEDS ORDERED: chlordiazePOXIDE 5 MG CAPSULE PO SCH ×2 (11:00→23:00)
[2017-05-17] MEDS: SUCRALFATE 1 GM/10 ML UNIT DOSE CUPS PO SCH ×3 (11:09→18:20)
[2017-05-17] MEDS: FOLIC ACID 1 MG TABLET (FP) PO SCH (11:10)
[2017-05-17] MEDS: PANTOPRAZOLE 40 MG TABLET (FP) PO SCH (11:10)
[2017-05-17] MEDS: NADOLOL 40 MG TABLET (FP) PO SCH (11:10)
[2017-05-17 14:09] LABS: TRANSGLUTAMINASE IGA 2 U/mL (0-3); TRANSGLUTAMINASE IGG 4 U/mL (0-5)
--- NOTE | 2017-05-17 15:14 | PN ---
Teaching Attending Note Name of Resident: Nahum Nicky ATTENDING PHYSICIAN STATEMENT I saw and evaluated the patient. I reviewed the resident's note and discussed the case with the resident. I agree with the resident's findings and plan as documented. SUBJECTIVE: no fever or chills , no tremor. slept last night . no abd pain , no an/v . requestioned patient , he stated he did not drink in one month OBJECTIVE: NAD ,MMM, icteric sclera. no JVD CV: RRR, no MRG Lungs: CATB Abd: soft, NT, ND, NO shifting dullness, Liver is palpated 5 cm below costal margin at Mid clavicular line. spleen is not palpated . Nl BS Ext: no edema . No erythema . ASSESSMENT AND PLAN: 27 y/o man with h/o alcohol dependence , quit 1 months ago, who presented with upper abd pain and jaundice. 1- Jaundice: likely from alcoholic cirrhosis ,. MRCp did not show any biliary tree dilation . - EGD with grade III varices , banded . portal gastropathy - cont nadolol - po PPI - d/w Yocasta Betts who agrees on no steroids need due to no alcohol in 1 month - AFP pending - MRi with/wo might be indicated but can be done as out pt - follow up with Dr. Rust. in 1 week for further eval - pt is aware of liver lesion which needs to be further evaluated. and understands the need for follow up 2- Alcohol dependence. quit 1 months ago. no signs of withdrawal. was started on librium last night. confirmed with pt again that last drink was [address] to [address] Pham , who agrees that librium is not indicated. and agrees wit dc home dispo ; dc home in evening after further monitoring
[2017-05-17 18:17] VITALS: BP 131/73; PULSE 79; TEMP 98.7
[2017-05-17] MEDS: POTASSIUM CHLORIDE TABS 20 MEQ TABLET.ER (FP) PO SCH (19:50)
--- NOTE | 2017-05-17 19:56 | DS ---
Physical Exam: SUBJECTIVE: Patient seen and examined at bedside, denies any fever, chills,N/V/D /C. OBJECTIVE: Vital Signs Period Temp Pulse Resp BP Sys/Bernard Pulse Ox Last 24 Hr 98 F-98.9 F 79-88 18-20 106-131/61-88 99-99 PHYSICAL EXAM GENERAL: AAOx3 , in NAD HEAD: NC/AT EYES: PERRL, EOMI , sclera icteric, conjunctiva clear. ENT: moist mucous membranes. NECK: full range of motion, supple.No JVD LUNGS: CTA B/L , no wheezes, no crackles, no accessory muscle use. HEART: RRR, S1, S2 without murmur, rub or gallop. ABDOMEN: Soft, nontender, nondistended, normoactive bowel sounds, no guarding, no rebound, hepatomegaly is palpable 5 cm below costal margine, spleen not palpable, no shifting dullness. no testical atrophy or gynecomastia EXTREMITIES: 2+ pulses, warm, well-perfused, no edema. peripheral skin pigmentation NEUROLOGICAL:No focal deficit . Normal speech, gait not observed. PSYCH: Normal mood, normal affect. SKIN: Warm, dry, LABS Laboratory Results - last 24 hr 05/16/17 05/16/17 05/16/17 10:30 10:30 10:30 WBC RBC Hgb Hct MCV MCH MCHC RDW Plt Count MPV Neutrophils % Lymphocytes % Monocytes % Eosinophils % Basophils % Sodium Potassium Chloride Carbon Dioxide Anion Gap BUN Creatinine Creat Clearance w eGFR Random Glucose Calcium Iron 107 TIBC 154 L Iron Saturation 69 H Total Bilirubin AST ALT Alkaline Phosphatase Total Protein Albumin Stool Occult Blood Opiates Screen Methadone Screen Barbiturate Screen Phencyclidine Screen Ur Amphetamines Screen MDMA (Ecstasy) Screen Benzodiazepines Screen Cocaine Screen U Marijuana (THC) Screen IgG 1874 H Smooth Musc &NURSE DISCHARGE Intrp 12 Tiss Transglutamin IgG 4 Tiss Transglutamin IgA 2 CMV IgM Ab < 30.0 Hepatitis C Antibody 0.2 05/16/17 05/16/17 05/17/17 21:40 21:45 06:00 WBC 6.9 RBC 4.16 Hgb 13.6 D Hct 40.7 MCV 98.0 H MCH 32.6 MCHC 33.3 RDW 15.2 Plt Count 99 L MPV 8.9 Neutrophils % 58.1 Lymphocytes % 22.2 Monocytes % 12.8 H Eosinophils % 5.6 H Basophils % 1.3 Sodium Potassium Chloride Carbon Dioxide Anion Gap BUN Creatinine Creat Clearance w eGFR Random Glucose Calcium Iron TIBC Iron Saturation Total Bilirubin AST ALT Alkaline Phosphatase Total Protein Albumin Stool Occult Blood Negative Opiates Screen Negative Methadone Screen Negative Barbiturate Screen Negative Phencyclidine Screen Negative Ur Amphetamines Screen Negative MDMA (Ecstasy) Screen Negative Benzodiazepines Screen Positive Cocaine Screen Negative U Marijuana (THC) Screen Negative IgG Smooth Musc &NURSE DISCHARGE Intrp Tiss Transglutamin IgG Tiss Transglutamin IgA CMV IgM Ab Hepatitis C Antibody 05/17/17 06:00 WBC RBC Hgb Hct MCV MCH MCHC RDW Plt Count MPV Neutrophils % Lymphocytes % Monocytes % Eosinophils % Basophils % Sodium 135 L Potassium 4.2 D Chloride 101 Carbon Dioxide 29 Anion Gap 5 L BUN 6 L Creatinine 0.5 L D Creat Clearance w eGFR > 60 Random Glucose 80 Calcium 8.3 L Iron TIBC Iron Saturation Total Bilirubin 10.5 H AST 95 H ALT 45 Alkaline Phosphatase 186 H Total Protein 7.7 Albumin 2.2 L Stool Occult Blood Opiates Screen Methadone Screen Barbiturate Screen Phencyclidine Screen Ur Amphetamines Screen MDMA (Ecstasy) Screen Benzodiazepines Screen Cocaine Screen U Marijuana (THC) Screen IgG Smooth Musc &NURSE DISCHARGE Intrp Tiss Transglutamin IgG Tiss Transglutamin IgA CMV IgM Ab Hepatitis C Antibody HOSPITAL COURSE: Date of Admission:05/15/17 Date of Discharge: 05/17/17 27 y/o man with h/o alcohol dependence , quit 1 months ago, who presented with upper abd pain and jaundice. 2/2 Liver cirrhosis from chronic alcohol use (AST: ALT > 2:1),direct bili 7.3 , total bili 9.3 improving Likely intrahepatic injury , CT abdomen was done r/o extrahepatic obstruction .MRCP with no biliary tree dilation.GI consult , performed EGD that shows grade III varices , banded . portal gastropathy.started on Nadolol 40 mg po daily , Sucralfat 1 gm PO QID,and PPI pt will follow up as out pt with for the lab result and alcoholic cirrhosis (AFP , Hep A,B panel , HCV ab, transglutaminase IGG, IGA , smooth muscle AB stat, IGG immunoglobulin , CMV IGM , MARIA R ) pt has Alcohol dependence with no signs of withdrawal ,last drink 1 month ago, urine toxicology was postive for benzo (given in ED). librium protocol started by for 2 days and stoped later as pt did not have withdrwal symmptoms. Pt started on thiamine and folic acid per dr armas and pental vitamins 1 tab Q daily. pt has thrombocytopenia likely 2/2 cirrhosis vs direct alcohol effect on BM ,PLt 99, with no active bleeding ,monitor CBC as out pt.pt also has anemia likely 2/2 chronic disease vs alcohol effect , iron studies go with anemia of chronic disease ,continue folic acid and thiamin was adviced about alcohol abstinence , H/H was monitored and pt is not in active bleeding , occult blood is negative on EKG pt was found to have QT prolongation,QTc 520monitored with Daily EKG. QT prolonging medications were avoided. pt has Hyponatremia, improved , Likely hypovolumic hyponatremia.and Hypokalemia , resolved K 4.2 upon dc, was replenished with K-Dur 40 meq and 20 meq K-dur po BID pt is hemodynamically stable and is ready to go home. he will follow up with GI doctor within one week for hepatic cirrhosis and the labs result.pt decided to go home and will follow up with detox in [facility] per his request. Minutes to complete discharge: 40 Discharge Summary Reason For Visit: HYPERBILIRUBINEMIA,ALCOHOL WITHDRAWAL SYNDROME Current Active Problems Hyperbilirubinemia (Acute) Jaundice (Acute) Prolonged Q-T interval on ECG (Acute) Liver cirrhosis, alcoholic (Chronic) Macrocytosis (Chronic) Thrombocytopenia (Chronic) Condition: Stable - Instructions Diet, Activity, Other Instructions: You were admitted to the hospital for abdominal pain and jaundice you were found to have liver cirrhosis and esophageal varices that was banded. Please take the following meds as prescribed Folic Acid (Folic Acid -) 1 mg oral DAILY Nadolol (Corgard -) 40 mg oral DAILY Thiamine HCl (Vitamin B1) 100 mg oral once a day Pantoprazole Sodium (Protonix -) 40 mg PO twice daily Sucralfate (Carafate Oral Suspension ) 1 gm PO 4 times a day Please follow up with liver doctor within one week to follow up on your lab result. and to monitor your liver cirrhosis Please follow up with your primary care physician within one week Please , be aware, you need follow up on the liver lesion seen on MRI, also the blood work ( Alpha pheto protein ) which is marker for liver cancer . Dr. Rust will do that other labs needs to be followed after you follow up with Dr. Rust ( hepatitis serology, and other serology for the liver ) Please stop drinking alcohol completely , otherwise your liver cirrhosis will be more advanced . - you might be a candidate for liver transplant if you abstain from alcohol - if you see black stool, please notify your doctor as this might indicate bleeding form stomach - you can call [facility] rehab if you my consider rehabilitation for alcohol ( call [phone] and ask to be transferrd to [facility] ) if you develop fever, chills,sever abdominal pain, vomiting or your notice any blood in stool or your symptoms worsen call 911 or come back to ED [facility]. Referrals: Trenton Tomas MD [Staff Physician] - 1 Week (schedule with Dr.Sami Nicky YAP on Fridays after 12.) Johnie Rust MD [Staff Physician] - 1 Week Disposition: HOME - Home Medications Comprehensive Discharge Medication List: Ambulatory Orders Folic Acid - 1 mg PO DAILY #30 tablet 05/17/17 Nadolol [Corgard -] 40 mg PO DAILY #30 tablet 05/17/17 Pantoprazole Sodium [Protonix -] 40 mg PO BID #60 tablet.ec 05/17/17 Sucralfate Oral Suspension [Carafate Oral Suspension -] 1 gm PO QID #120 ml 01/22 Thiamine HCl [Vitamin B1 -] 100 mg PO HS #30 tablet 05/17/17 This patient is new to me today: No Emergency Visit: Yes ED Registration Date: 05/15/17 Care time: The patient presented to the Emergency Department on the above date and was hospitalized for further evaluation of their emergent condition. Critical Care patient: No - Discharge Referral Referred to [facility] No
[2017-05-17] MEDS ORDERED: chlordiazePOXIDE HCL 25 MG CAPSULE PO SCH (23:00)
[2017-05-18 12:52] LABS: HBSAG SCREEN Negative (Negative); HEP A AB, IGM Negative (Negative); HEP B CORE AB, TOT Negative (Negative)
[2017-05-18] MEDS ORDERED: chlordiazePOXIDE 5 MG CAPSULE PO SCH ×2 (23:00)
--- NOTE | 2017-05-19 14:55 | PATH ---
Surgical Pathology Report Patient Name: BRANDT VILLEGAS Med. Rec. #: [id number] /Age/Gender: 1990 (Age: 27) / M Account: [id number] Location: [facility] MED/SURG Taken: 05/16/2017 Received: 05/16/2017 Reported: 05/19/2017 Physicians: Gorge Luna M.D. Specimen(s) Received BX ANTRUM/BODY Clinical History Preoperative diagnosis: Hyperbilirubinemia, Alcohol withdrawal symptoms Postoperative diagnosis: Gastritis, grade 3 varices, portal gastropathy Final Diagnosis STOMACH, ANTRUM/BODY, BIOPSY: GASTRIC ANTRAL AND BODY MUCOSA WITH MODERATE CHRONIC ACTIVE GASTRITIS. IMMUNOHISTOCHEMICAL STAIN FOR H. PYLORI IS POSITIVE (NUMEROUS). Electronically Signed Rebecca Mobley M.D. Gross Description Received in formalin, labeled "biopsy antrum/body" are 2 aranda, irregular portions of soft tissue measuring 0.2 and 0.6 cm. in greatest dimension. The specimens are submitted in toto in one cassette. /05/16/2017 [facility]05/16/2017
--- NOTE | 2017-05-21 07:57 | EKG ---
Test Reason : Blood Pressure : / mmHG Vent. Rate : 089 BPM Atrial Rate : 089 BPM P-R Int : 138 ms QRS Dur : 090 ms QT Int : 392 ms P-R-T Axes : 054 -09 022 degrees QTc Int : 476 ms NORMAL SINUS RHYTHM WHEN COMPARED WITH ECG OF 15-MAY-2017 12:02, NO SIGNIFICANT CHANGE WAS FOUND Confirmed by DORIS RODGERS MD ([id number]) on 05/16/2017 2:06:51 PM Referred By: Confirmed By:DORIS RODGERS MD
== END 2017-05-17 20:21 | disposition home or self-care (01) | DRG 775 ==
LOC: JER 02:38 → JERBED 06:07 → J4W 16:39 → J7W 05-16 06:29
PROVIDERS: ADMIT Internal Medicine; ATTEND Internal Medicine
PROC: 06L38CZ Occlusion of Esophageal Vein with Extraluminal Device, Via Natural or Artificial Opening Endoscopic (ICD-10-PCS; principal; 2017-05-16 14:00)
DX: F10.239 Alcohol dependence with withdrawal, unspecified (principal); K70.30 Alcoholic cirrhosis of liver without ascites; D64.9 Anemia, unspecified; E87.1 Hypo-osmolality and hyponatremia; E87.6 Hypokalemia; K76.6 Portal hypertension; K31.89 Other diseases of stomach and duodenum; E86.0 Dehydration; D75.89 Other specified diseases of blood and blood-forming organs; K29.50 Unspecified chronic gastritis without bleeding; B96.81 Helicobacter pylori [H. pylori] as the cause of diseases classified elsewhere; I85.00 Esophageal varices without bleeding; D69.6 Thrombocytopenia, unspecified; R16.2 Hepatomegaly with splenomegaly, not elsewhere classified; I45.81 Long QT syndrome
CPT/HCPCS: 36415; 74177-TC; 74181-TC; 80053; 80307; 81003; 82105; 82150; 82248; 82272; 82607; 82728; 82784; 83516; 83540; 83550; 83690; 83735; 85025; 85610; 85730; 86038; 86645; 86704; 86706; 86708; 86803; 87340; 88305-TC; 90688; 93005; 93010; 99284-25

== ENCOUNTER 2017-07-22 19:58 | Emergency (ER) | payer OTHER ==
--- NOTE | 2017-07-22 20:55 | PDOC ---
Rapid Medical Evaluation Time Seen by Provider: 07/22/17 20:53 Medical Evaluation: Allergies Allergy/AdvReac Type Severity Reaction Status Date / Time No Known Allergies Allergy Verified 05/15/17 03:02 I have performed a brief in-person evaluation of this patient. The patient presents with a chief complaint of: alcohol withdrawal symptoms of shaking; drank a 12 pack of beer 2 days ago then stopped; this has happened before and he was given librium and he felt better Pertinent physical exam findings: nothing I have ordered the following: none The patient will proceed to the ED for further evaluation.
[2017-07-22 21:07] VITALS: TEMP 99.2; BMI 38.9
--- NOTE | 2017-07-22 21:16 | PDOC ---
History of Present Illness - General History Source: Patient Exam Limitations: No Limitations - History of Present Illness Initial Comments: 07/22/17 21:27 The patient is a 27 year old male with a significant PMH of alcohol abuse, alcohol withdrawal, and liver cirrhosis who presents to the emergency department with generalized tremors over the past day. The patient reports he started drinking alcohol excessively again about 1 week ago but suddenly stopped 2 days ago. He reports he has been feeling shaky. As per old records, the patient was admitted on 05/15/17 for a similar complaint. The patient states he is interested in detox. The patient denies chest pain, shortness of breath, headache, or dizziness. Denies fevers, chills, nausea, vomit, diarrhea, and constipation. Denies dysuria, frequency, urgency, and hematuria. Allergies: NKA Past surgical history: None reported. Social history: Alcohol abuse (12 pack beer/daily). No reported cigarette or drug use. PCP: None reported. <Palomo Marvin - Last Filed: 07/22/17 21:27> - General History Source: Patient <JaysonAlec kumar - Last Filed: 07/22/17 22:21> - General Chief Complaint: Tremors Stated Complaint: WEAKNESS Time Seen by Provider: 07/22/17 20:53 Past History <Palomo Marvin - Last Filed: 07/22/17 21:27> - Past Medical History Anemia: No Asthma: No Cancer: No Cardiac Disorders: No CVA: No COPD: No CHF: No Dementia: No Diabetes: No GI Disorders: Yes Disorders: No HTN: No Hypercholesterolemia: No Liver Disease: Yes (Cirrhosis) Seizures: No Thyroid Disease: No Lung CA: No - Surgical History Abdominal Surgery: No Appendectomy: No Cardiac Surgery: No Cholecystectomy: No Gastric Stapling: No Lung Surgery: No Neurologic Surgery: No Orthopedic Surgery: No - Immunization History Immunization Up to Date: No - Suicide/Smoking/Psychosocial Hx Smoking Status: No Smoking History: Never smoked Have you smoked in the past 12 months: No Number of Cigarettes Smoked Daily: 0 Information on smoking cessation initiated: No Hx Alcohol Use: Yes (12 pack beer daily) Drug/Substance Use Hx: No Substance Use Type: Alcohol Hx Substance Use Treatment: No <Alec Mata - Last Filed: 04/17/18 22:21> - Past Medical History Allergies/Adverse Reactions: Allergies Allergy/AdvReac Type Severity Reaction Status Date / Time No Known Allergies Allergy Verified 07/22/17 20:55 Home Medications: Ambulatory Orders Folic Acid - 1 mg PO DAILY #30 tablet 05/17/17 Nadolol [Corgard -] 40 mg PO DAILY #30 tablet 05/17/17 Pantoprazole Sodium [Protonix -] 40 mg PO BID #60 tablet.ec 05/17/17 Sucralfate Oral Suspension [Carafate Oral Suspension -] 1 gm PO QID #120 ml 01/22 Thiamine HCl [Vitamin B1 -] 100 mg PO HS #30 tablet 05/17/17 Review of Systems - Review of Systems Able to Perform ROS?: Yes Comments:: 07/22/17 21:27 CONSTITUTIONAL: (+) Generalized tremors. Absent: fever, chills, diaphoresis, generalized weakness, malaise, loss of appetite HEENT: Absent: rhinorrhea, nasal congestion, throat pain, throat swelling, difficulty swallowing, mouth swelling, ear pain, eye pain, visual Changes CARDIOVASCULAR: Absent: chest pain, syncope, palpitations, irregular heart rate, lightheadedness , peripheral edema RESPIRATORY: Absent: cough, shortness of breath, dyspnea with exertion, orthopnea, wheezing, stridor, hemoptysis GASTROINTESTINAL: Absent: abdominal pain, abdominal distension, nausea, vomiting, diarrhea, constipation, melena, hematochezia GENITOURINARY: Absent: dysuria, frequency, urgency, hesitancy, hematuria, flank pain, genital pain MUSCULOSKELETAL: Absent: myalgia, arthralgia, joint swelling SKIN: Absent: rash, itching, pallor HEMATOLOGIC/IMMUNOLOGIC: Absent: easy bleeding, easy bruising, lymphadenopathy, frequent infections ENDOCRINE: Absent: unexplained weight gain, unexplained weight loss, heat intolerance, cold intolerance NEUROLOGIC: Absent: headache, focal weakness or paresthesias, dizziness, unsteady gait, seizure, mental status changes, bladder or bowel incontinence PSYCHIATRIC: Absent: anxiety, depression, suicidal or homicidal ideation, hallucinations. <Palomo Marvin - Last Filed: 07/22/17 21:27> *Physical Exam - Vital Signs Last Vital Signs Temp Pulse Resp BP Pulse Ox 99.2 F 110 H 20 128/51 98 07/22/17 20:56 07/22/17 20:56 07/22/17 20:56 07/22/17 20:56 07/22/17 20:56 - Physical Exam Comments: 07/22/17 21:27 GENERAL: (+) Slightly tremulous. Well developed, well nourished. Awake and alert. No acute distress. HEENT: Normocephalic, atraumatic. PERRLA, EOMI. No conjunctival pallor. Sclera are non- icteric. Moist mucous membranes. Oropharynx is clear. NECK: Supple. Full ROM. No JVD. Carotid pulses 2+ and symmetric, without bruits. No thyromegaly. No lymphadenopathy. CARDIOVASCULAR: Regular rate and rhythm. No murmurs, rubs, or gallops. Distal pulses are 2+ and symmetric. PULMONARY: No evidence of respiratory distress. Lungs clear to auscultation bilaterally. No wheezing, rales or rhonchi. ABDOMINAL: Soft. Non-tender. Non-distended. No rebound or guarding. No organomegaly. Normoactive bowel sounds. MUSCULOSKELETAL Normal range of motion at all joints. No bony deformities or tenderness. No CVA tenderness. EXTREMITIES: No cyanosis. No clubbing. No edema. No calf tenderness. SKIN: Warm and dry. Normal capillary refill. No rashes. No jaundice. NEUROLOGICAL: Alert, awake, appropriate. Cranial nerves 2-12 intact. No deficits to light touch and temperature in face, upper extremities and lower extremities. No motor deficits in the in face, upper extremities and lower extremities. Normoreflexic in the upper and lower extremities. Normal speech. Toes are downgoing bilaterally. Gait is normal without ataxia. PSYCHIATRIC: Cooperative. Good eye contact. Appropriate mood and affect. <Palomo Marvin - Last Filed: 07/22/17 21:27> - Vital Signs Last Vital Signs Temp Pulse Resp BP Pulse Ox 99.2 F 110 H 20 128/51 98 07/22/17 20:56 07/22/17 20:56 07/22/17 20:56 07/22/17 20:56 07/22/17 20:56 <Alec Mata - Last Filed: 07/22/17 22:21> ED Treatment Course - LABORATORY CBC & Chemistry Diagram: 07/22/17 21:30 07/22/17 21:30 <Alec Mata - Last Filed: 07/22/17 22:21> Medical Decision Making - Medical Decision Making 07/22/17 22:20 Dr. Mata: The scribe's documentation has been prepared under my direction and personally reviewed by me in its entirery. I confirm that the note above accurately reflects all work, treatment, procedures, and medical decision making performed by me. Bed is available at [facility]. Pt to report for alcohol detox. <Alec Mata - Last Filed: 07/22/17 22:21> *DC/Admit/Observation/Transfer - Attestations Scribe Attestion: 07/22/17 21:27 Documentation prepared by Palomo Marvin, acting as medical policy specialist for Alec Mata DO. <Palomo Marvin - Last Filed: 07/22/17 21:27> - Discharge Dispostion Admit: No <Alec Mata - Last Filed: 07/22/17 22:21> Diagnosis at time of Disposition: Liver cirrhosis, alcoholic, Alcohol abuse - Discharge Dispostion Disposition: HOME Condition at time of disposition: Stable - Patient Instructions Printed Discharge Instructions: DI for Alcohol Abuse Additional Instructions: Please report to [facility] as there is a bed available. Avoid alcohol once you are detoxed
[2017-07-22] MEDS ORDERED: chlordiazePOXIDE HCL 25 MG CAPSULE PO ONE (21:18)
[2017-07-22] MEDS ORDERED: chlordiazePOXIDE HCL 25 MG CAPSULE ONE (21:21)
[2017-07-22 21:43] LABS: BASO % 1.4 % (0-2.0); EOS % 0.9 % (0-4.5); HEMATOCRIT 34.3 % (35.4-49); HEMOGLOBIN 12.2 GM/dL (11.7-16.9); LYMPH % 19.4 % (8-40); MCH 34.3 pg (25.7-33.7); MCHC 35.5 g/dl (32.0-35.9); MEAN CELL VOLUME 96.6 fl (80-96); MEAN PLT VOLUME 8.4 fl (7.5-11.1); MONO % 8.3 % (3.8-10.2); PLATELET COUNT 64 K/MM3 (134-434); RBC 3.55 M/mm3 (4.00-5.60); RDW 13.9 % (11.9-15.9); WHITE BLOOD COUNT 7.3 K/mm3 (4.0-10.0)
[2017-07-22 21:55] LABS: INR 1.6 (0.82-1.09); PROTHROMBIN TIME (PATIENT) 18.1 SEC (9.98-11.88)
[2017-07-22 22:04] LABS: ANION GAP 6 (8-16); BILIRUBIN,TOTAL 4.1 mg/dL (0.2-1.0); BLOOD UREA NITROGEN 4 mg/dL (7-18); CALCIUM 8.3 mg/dL (8.5-10.1); CHLORIDE 105 mmol/L (98-107); CO2 25 mmol/L (21-32); CREATININE 0.4 mg/dL (0.7-1.3); GLUCOSE,RANDOM 109 mg/dL (74-106); MAGNESIUM 1.6 mg/dL (1.8-2.4); POTASSIUM 3.9 mmol/L (3.5-5.1); SGOT/AST 94 U/L (15-37); SGPT/ALT 37 U/L (12-78); SODIUM 136 mmol/L (136-145); TOT PROT 9.8 g/dl (6.4-8.2)
[2017-07-22 22:07] LABS: ALK PHOS 135 U/L (45-117)
[2017-07-22 22:24] VITALS: BP 115/73; PULSE 98
== END 2017-07-22 22:24 | disposition home or self-care (01) ==
LOC: JER 19:58
DX: F10.230 Alcohol dependence with withdrawal, uncomplicated (principal); K70.30 Alcoholic cirrhosis of liver without ascites
CPT/HCPCS: 36415; 80053; 82550; 82553; 83735; 84484; 85025; 85610; 99282-25

== ENCOUNTER 2017-07-22 23:33 | Inpatient (IN) | payer OTHER ==
[~2017-07-22 23:33] MED LIST: MELATONIN 5 MG TABLETS PO PRN
--- NOTE | 2017-07-22 23:37 | HP ---
CIWA Score - CIWA Score Nausea/Vomitin Muscle Tremors: 4-Moderate,w/Arms Extend Anxiety: 4-Mod. Anxious/Guarded Agitation: 4-Moderately Restless Paroxysmal Sweats: 3 Orientation: 1-Uncertain about Date Tacttile Disturbances: 0-None Auditory Disturbances: 0-None Visual Disturbances: 0-None Headache: 1-Very Mild CIWA-Ar Total Score: 20 Admission ROS [facility] - HPI Chief Complaint: C/O WITHDRAWAL SX'S. SEEKING DETOX TXMENT FOR ALCOHOLISM. Allergies/Adverse Reactions: Allergies Allergy/AdvReac Type Severity Reaction Status Date / Time No Known Allergies Allergy Verified 07/22/17 20:55 History of Present Illness: 27 Y.O. MALE WITH HX/O ALCOHOLISM HERE FOR DETOX. CLIENT WAS REFERRED BY [facility] AFTER PRESENTING WITH C/O WITHDRAWAL SX'S. WAS TX'ED AT [facility] 05/2017 FOR SIMILAR SX'S. REPORTS THIS IS HIS FIRST TIME IN SUBSTANCE ABUSE TXMENT. PMHX LIVER CIRROHSIS, ALCOHOL INDUCED GASTRITIS, AND HTN NON COMPLAINT WITH NADOL. DENIES ANY SIGNIFICANT PERIOD OF CLEAN TIME. Exam Limitations: No Limitations - Ebola screening Have you traveled outside of the country in the last 21 days: No Have you had contact with anyone from an Ebola affected area: No Have you been sick,other than usual withdrawal symptoms: No Do you have a fever: No - Review of Systems Constitutional: Chills, Loss of Appetite, Other (C/O WEAKNESS) EENT: reports: No Symptoms Reported Respiratory: reports: No Symptoms reported Cardiac: reports: No Symptoms Reported GI: reports: Nausea : reports: No Symptoms Reported Musculoskeletal: reports: No Symptoms Reported Integumentary: reports: No Symptoms Reported Neuro: reports: No Symptoms reported Endocrine: reports: No Symptoms Reported Hematology: reports: No Symptoms Reported Psychiatric: reports: Anxious Other Systems: Reviewed and Negative Patient History - Patient Medical History Hx Anemia: No Hx Asthma: No Hx Chronic Obstructive Pulmonary Disease (COPD): No Hx Cancer: No Hx Cardiac Disorders: No Hx Congestive Heart Failure: No Hx Hypertension: No Hx Hypercholesterolemia: No Hx Pacemaker: No HX Cerebrovascular Accident: No Hx Seizures: No Hx Dementia: No Hx Diabetes: No Hx Gastrointestinal Disorders: Yes (GASTRITIS) Hx Liver Disease: Yes (Cirrhosis) Hx Genitourinary Disorders: No Hx Renal Disease (ESRD): No Hx Thyroid Disease: No Hx Human Immunodeficiency Virus (HIV): No Hx Hepatitis C: No Hx Depression: No (FEELS DEPRESSED WOULD LIKE TO SPEAK W/ PSYCHIATRIST) Hx Suicide Attempt: No Hx Bipolar Disorder: No Hx Schizophrenia: No - Patient Surgical History Past Surgical History: No Hx Neurologic Surgery: No Hx Cataract Extraction: No Hx Cardiac Surgery: No Hx Lung Surgery: No Hx Breast Surgery: No Hx Breast Biopsy: No Hx Abdominal Surgery: No Hx Appendectomy: No Hx Cholecystectomy: No Hx Genitourinary Surgery: No Hx Section: No Hx Orthopedic Surgery: No Hx Hysterectomy: No Anesthesia Reaction: No - PPD History Previous Implant?: Yes Documented Results: Negative w/o proof Implanted On Prior [facility] Admission?: No PPD to be Administered?: Yes - Smoking Cessation Smoking history: Never smoked Have you smoked in the past 12 months: No Aproximately how many cigarettes per day: 0 Cigars Per Day: 0 Hx Chewing Tobacco Use: No Initiated information on smoking cessation: No - Substance & Tx. History Hx Alcohol Use: Yes Hx Substance Use: No Substance Use Type: Alcohol Hx Substance Use Treatment: No - Substances Abused BEER Route: Oral Frequency: Daily Amount used: 12 PACK Age of first use: 15 Date of Last Use: 07/20/17 Family Disease History - Family Disease History Family Disease History: Other: Father (ALCOHOLISM, ) Admission Physical Exam [facility] - Physical General Appearance: Yes: Nourished, Appropriately Dressed, Tremorous, Anxious HEENTM: Yes: EOMI, Normocephalic, Normal Voice, PELON, Pharynx Normal, Other ( SCLERA JAUNDICE) Respiratory: Yes: Chest Non-Tender, Lungs Clear, Normal Breath Sounds, No Respiratory Distress, No Accessory Muscle Use Neck: Yes: No masses,lesions,Nodules, Supple, Trachea in good position Breast: Yes: Breast Exam Deferred Cardiology: Yes: Regular Rhythm, S1, S2, Tachycardia Abdominal: Yes: Normal Bowel Sounds, Soft, Protuberent Genitourinary: Yes: Within Normal Limits Back: Yes: Normal Inspection Musculoskeletal: Yes: full range of Motion, Gait Steady Extremities: Yes: Normal Range of Motion, Non-Tender, Tremors Neurological: Yes: Fully Oriented, Alert, Motor Strength 5/5 Integumentary: Yes: Dry, Warm, Jaundice Lymphatic: Yes: Within Normal Limits - Diagnostic (1) Jaundice Current Visit: Yes Status: Chronic (2) Liver cirrhosis, alcoholic Current Visit: Yes Status: Chronic Qualifiers: Ascites presence: unspecified Qualified Code(s): K70.30 - Alcoholic cirrhosis of liver without ascites (3) Alcohol dependence with uncomplicated withdrawal Current Visit: Yes Status: Chronic (4) Dehydration Current Visit: Yes Status: Acute (5) Alcoholic gastritis Current Visit: Yes Status: Chronic Qualifiers: Chronicity: unspecified Gastritis bleeding: presence of bleeding unspecified Qualified Code(s): K29.20 - Alcoholic gastritis without bleeding (6) HTN (hypertension) Current Visit: Yes Status: Chronic Qualifiers: Hypertension type: essential hypertension Qualified Code(s): I10 - Essential (primary) hypertension (7) Psychiatric disorder Current Visit: Yes Status: Suspected Cleared for Admission [facility] - Detox or Rehab [facility] Level of Care: Medically Managed Detox Regimen/Protocol: Librium Claeared for Rehab Admission: No
[2017-07-22] MEDS ORDERED: P-EPHED 60MG/TRIPROLIDI 2.5MG TABLET PO PRN (23:46)
[2017-07-22] MEDS ORDERED: MAGNESIUM CITRATE 300 ML BOTTLE PO PRN (23:46)
[2017-07-22] MEDS ORDERED: ACETAMINOPHEN 325 MG TABLET (FP) PO PRN (23:46)
[2017-07-22] MEDS ORDERED: guaiFENesin/D-METHORPHAN HB 10 ML UNIT-DOSE CUPS PO PRN (23:46)
[2017-07-22] MEDS ORDERED: MAGNESIUM HYDROX 2400MG/30ML ORAL SUSPENSION 30 ML CUP PO PRN (23:46)
[2017-07-22] MEDS ORDERED: MENTHOL/PHENOL 1 EACH UD MM PRN (23:46)
[2017-07-22] MEDS ORDERED: MAG HYDROX/AL HYDROX/SIMETH 30 ML UNIT-DOSE CUP PO PRN (23:46)
[2017-07-22] MEDS ORDERED: LOPERAMIDE HCL 2 MG CAPSULE PO PRN (23:46)
[2017-07-22] MEDS ORDERED: IBUPROFEN 400 MG TABLET (FP) PO PRN (23:46)
[2017-07-22] MEDS ORDERED: chlordiazePOXIDE HCL 25 MG CAPSULE PO PRN (23:46)
[2017-07-22 23:55] VITALS: BMI 40.2
[2017-07-23] MEDS: chlordiazePOXIDE HCL 25 MG CAPSULE PO SCH ×5 (00:29→22:41)
[2017-07-23] MEDS: hydrOXYzine PAMOATE 50 MG CAPSULE (FP) PO PRN (02:08)
--- NOTE | 2017-07-23 09:25 | EKG ---
Test Reason : Blood Pressure : / mmHG Vent. Rate : 104 BPM Atrial Rate : 104 BPM P-R Int : 154 ms QRS Dur : 084 ms QT Int : 368 ms P-R-T Axes : 049 -10 032 degrees QTc Int : 483 ms SINUS TACHYCARDIA OTHERWISE NORMAL ECG WHEN COMPARED WITH ECG OF 17-MAY-2017 14:25, NO SIGNIFICANT CHANGE WAS FOUND Confirmed by ELIANE LONDON MD ([id number]) on 07/23/2017 9:25:48 AM Referred By: Confirmed By:ELIANE LONDON MD
[2017-07-23] MEDS: PRENATAL VITAMINS W/ FOLIC ACID TABLET (FP) PO SCH (10:56)
--- NOTE | 2017-07-23 14:05 | PN ---
S CIWA - CIWA Score Nausea/Vomitin-No Nausea/No Vomiting Muscle Tremors: 4-Moderate,w/Arms Extend Anxiety: 4-Mod. Anxious/Guarded Agitation: 4-Moderately Restless Paroxysmal Sweats: 1-Minimal Palms Moist Orientation: 0-Oriented Tacttile Disturbances: 0-None Auditory Disturbances: 0-None Visual Disturbances: 0-None Headache: 0-None Present CIWA-Ar Total Score: 13 BHS Progress Note (SOAP) Subjective: ANXIETY,SWEATS,TREMORS,INTERMITTENT SLEEP. Objective: 07/23/17 14:05 Vital Signs Temperature 98.9 F 07/23/17 11:20 Pulse Rate 98 H 07/23/17 11:20 Respiratory Rate 20 07/23/17 11:20 Blood Pressure 145/83 07/23/17 11:20 O2 Sat by Pulse Oximetry (%) Laboratory Last Values RPR Titer Nonreactive (NONREACTIVE) 07/23/17 08:00 BLOOD WORK DONE AT [facility] ER BEFORE ADMISSION TO DETOX YESTERDAY Assessment: 07/23/17 14:05 WITHDRAWAL SX Plan: CONTINUE DETOX
[2017-07-23 14:19] LABS: URINE APPEARANCE CLEAR; URINE BILIRUBIN NEGATIVE (<2.0 mg/dL); URINE COLOR AMBER; URINE GLUCOSE (UA) NEGATIVE (NEGATIVE); URINE KETONE NEGATIVE (NEGATIVE); URINE LEUK ESTERASE NEGATIVE (NEGATIVE); URINE NITRITE NEGATIVE (NEGATIVE); URINE UROBILINOGEN 4.0 E.U/dl mg/dL (0.2-1.0)
[2017-07-23 14:41] LABS: URINE PROTEIN 1+ (NEGATIVE)
[2017-07-23 14:47] LABS: EPI CELLS RARE /HPF (FEW); URINE MUCUS RARE
--- NOTE | 2017-07-23 16:29 | CONSULT ---
[facility] Psychiatric Consult - Data Date of interview: 07/23/17 Admission source: [facility] Identifying data: First admission to [facility] for this 27 y/o [place]-born male seeking detox treatment on for alcohol dependence.Patient is single (common-law spouse),father of three,domiciled and currently employed. Substance Abuse History: Confirmed by patient.Details in current [facility] report : Smoking history: Never smoked. Have you smoked in the past 12 months: No. Aproximately how many cigarettes per day: 0. Cigars Per Day: 0. Hx Chewing Tobacco Use: No. Initiated information on smoking cessation: No. - Substance & Tx. History. Hx Alcohol Use: Yes. Hx Substance Use: No. Substance Use Type : Alcohol. Hx Substance Use Treatment: No. - Substances Abused. BEER. Route: Oral. Frequency: Daily. Amount used: 12 PACK. Age of first use: 15. Date of Last Use: 07/20/17 Medical History: GERD,cirrhosis of the liver,gastritis and hypertension. Psychiatric History: Patient denies. Physical/Sexual Abuse/Trauma History: Patient denies. Additional Comment: No toxicology on admission. Mental Status Exam - Mental Status Exam Alert and Oriented to: Time, Place, Person Cognitive Function: Good Patient Appearance: Well Groomed (short stature,overweight) Mood: Withdrawn, Hopeful Affect: Appropriate, Normal Range Patient Behavior: Fatigued, Appropriate, Cooperative Speech Pattern: Clear, Appropriate (bilingual) Voice Loudness: Normal Thought Process: Intact, Goal Oriented Thought Disorder: Not Present Hallucinations: Denies Suicidal Ideation: Denies Homicidal Ideation: Denies Insight/Judgement: Fair Sleep: Well Appetite: Good Muscle strength/Tone: Normal Gait/Station: Normal Psychiatric Findings - Problem List ([place] 1, 2,3) (1) Alcohol dependence with uncomplicated withdrawal Current Visit: Yes Status: Acute - Initial Treatment Plan Initial Treatment Plan: Psycheducation and support.Detoxification in progress.Observation.
[2017-07-23] MEDS: THIAMINE HCL 100 MG TABLET (FP) PO SCH (22:40)
[2017-07-24] MEDS: chlordiazePOXIDE HCL 25 MG CAPSULE PO SCH ×3 (05:45→17:45)
[2017-07-24] MEDS: PRENATAL VITAMINS W/ FOLIC ACID TABLET (FP) PO SCH (10:42)
--- NOTE | 2017-07-24 12:03 | PN ---
S CIWA - CIWA Score Nausea/Vomitin-No Nausea/No Vomiting Muscle Tremors: 4-Moderate,w/Arms Extend Anxiety: 3 Agitation: 4-Moderately Restless Paroxysmal Sweats: 1-Minimal Palms Moist Orientation: 0-Oriented Tacttile Disturbances: 0-None Auditory Disturbances: 0-None Visual Disturbances: 0-None Headache: 0-None Present CIWA-Ar Total Score: 12 BHS Progress Note (SOAP) Subjective: SLIGHT TREMORS. ANXIETY,SWEATS. Objective: 07/24/17 12:04 Vital Signs Temperature 98.4 F 07/24/17 09:21 Pulse Rate 105 H 07/24/17 09:21 Respiratory Rate 20 07/24/17 09:21 Blood Pressure 127/78 07/24/17 09:21 O2 Sat by Pulse Oximetry (%) Laboratory Last Values Urine Color Tracey 07/23/17 10:00 Urine Appearance Clear 07/23/17 10:00 Urine pH 7.0 (5.0-8.0) 07/23/17 10:00 Ur Specific [place] 1.013 (1.001-1.035) 07/23/17 10:00 Urine Protein 1+ (NEGATIVE) H 07/23/17 10:00 Urine Glucose (UA) Negative (NEGATIVE) 07/23/17 10:00 Urine Ketones Negative (NEGATIVE) 07/23/17 10:00 Urine Blood 1+ (NEGATIVE) H 07/23/17 10:00 Urine Nitrite Negative (NEGATIVE) 07/23/17 10:00 Urine Bilirubin Negative (<2.0 mg/dL) 07/23/17 10:00 Urine Urobilinogen 4.0 e.u/dl mg/dL (0.2-1.0) 07/23/17 10:00 Ur Leukocyte Esterase Negative (NEGATIVE) 07/23/17 10:00 Urine WBC (Auto) 2 /hpf (3-5) 07/23/17 10:00 Urine RBC (Auto) 3 /hpf (0-3) 07/23/17 10:00 Ur Epithelial Cells Rare /HPF (FEW) 07/23/17 10:00 Urine Mucus Rare 07/23/17 10:00 RPR Titer Nonreactive (NONREACTIVE) 07/23/17 08:00 Assessment: 07/24/17 12:04 WITHDRAWAL SX Plan: CONTINUE DETOX
[2017-07-24] MEDS: chlordiazePOXIDE 5 MG CAPSULE PO SCH (22:29)
[2017-07-24] MEDS: THIAMINE HCL 100 MG TABLET (FP) PO SCH (22:30)
[2017-07-25] MEDS: chlordiazePOXIDE 5 MG CAPSULE PO SCH ×3 (05:31→17:43)
[2017-07-25] MEDS: PRENATAL VITAMINS W/ FOLIC ACID TABLET (FP) PO SCH (10:33)
--- NOTE | 2017-07-25 12:24 | PN ---
BHS Progress Note (SOAP) Subjective: DECREASED ANXIETY,TREMORS. ALERT O X 3. OOB AMBULATING WITH STEADY GAIT. Objective: 07/25/17 12:23 Vital Signs Temperature 98.6 F 07/25/17 09:42 Pulse Rate 101 H 07/25/17 09:42 Respiratory Rate 20 07/25/17 09:42 Blood Pressure 126/74 07/25/17 09:42 O2 Sat by Pulse Oximetry (%) Laboratory Last Values Urine Color Tracey 07/23/17 10:00 Urine Appearance Clear 07/23/17 10:00 Urine pH 7.0 (5.0-8.0) 07/23/17 10:00 Ur Specific [place] 1.013 (1.001-1.035) 07/23/17 10:00 Urine Protein 1+ (NEGATIVE) H 07/23/17 10:00 Urine Glucose (UA) Negative (NEGATIVE) 07/23/17 10:00 Urine Ketones Negative (NEGATIVE) 07/23/17 10:00 Urine Blood 1+ (NEGATIVE) H 07/23/17 10:00 Urine Nitrite Negative (NEGATIVE) 07/23/17 10:00 Urine Bilirubin Negative (<2.0 mg/dL) 07/23/17 10:00 Urine Urobilinogen 4.0 e.u/dl mg/dL (0.2-1.0) 07/23/17 10:00 Ur Leukocyte Esterase Negative (NEGATIVE) 07/23/17 10:00 Urine WBC (Auto) 2 /hpf (3-5) 07/23/17 10:00 Urine RBC (Auto) 3 /hpf (0-3) 07/23/17 10:00 Ur Epithelial Cells Rare /HPF (FEW) 07/23/17 10:00 Urine Mucus Rare 07/23/17 10:00 RPR Titer Nonreactive (NONREACTIVE) 07/23/17 08:00 Assessment: 07/25/17 12:23 WITHDRAWAL SX Plan: CONTINUE DETOX
[2017-07-25] MEDS: chlordiazePOXIDE HCL 10 MG CAPSULE PO SCH (22:27)
[2017-07-25] MEDS: THIAMINE HCL 100 MG TABLET (FP) PO SCH (22:27)
[2017-07-26] MEDS: hydrOXYzine PAMOATE 50 MG CAPSULE (FP) PO PRN (00:41)
[2017-07-26] MEDS: chlordiazePOXIDE HCL 10 MG CAPSULE PO SCH (06:03)
[2017-07-26 06:56] VITALS: BP 104/58; PULSE 92; TEMP 97.1
--- NOTE | 2017-07-26 18:09 | PN ---
S Progress Note (SOAP) Subjective: Patient denies current Detox symptoms and reports that he feels well overall. Objective: PATIENT A & O X 3, OBSERVED AMBULATING ON UNIT. NO ACUTE DISTRESS. 07/26/17 18:08 Vital Signs Temperature 97.1 F L 07/26/17 06:55 Pulse Rate 92 H 07/26/17 06:55 Respiratory Rate 20 07/26/17 06:55 Blood Pressure 104/58 07/26/17 06:55 O2 Sat by Pulse Oximetry (%) Laboratory Tests 07/23/17 07/23/17 08:00 10:00 Urine Color Tracey Urine Appearance Clear Urine pH 7.0 Ur Specific [place] 1.013 Urine Protein 1+ H Urine Glucose (UA) Negative Urine Ketones Negative Urine Blood 1+ H Urine Nitrite Negative Urine Bilirubin Negative Urine Urobilinogen 4.0 e.u/dl Ur Leukocyte Esterase Negative Urine WBC (Auto) 2 Urine RBC (Auto) 3 Ur Epithelial Cells Rare Urine Mucus Rare RPR Titer Nonreactive LABS NOTED. Assessment: 07/26/17 18:08 COMPLETION OF DETOX REGIMEN. Plan: PATIENT SCHEDULED FOR DISCHARGE FROM DETOX UNIT TODAY.
--- NOTE | 2017-07-26 18:14 | DS ---
[facility] Detox Discharge Summary Admission Date: 07/22/17 Discharge Date: 07/26/17 - History Present History: Alcohol Dependence Additional Comments: PATIENT GOING TO [facility] SUBSTANCE USE TREATMENT PROGRAM ([facility]) FOR AFTERCARE. PATIENT WAS DISCHARGED FROM DETOX UNIT IN STABLE MEDICAL CONDITION. Pertinent Past History: Liver Cirrhosis, History of Alcoholic Gastritis, HTN, Depression, Dehydration, Jaundice. - Physical Exam Results Vital Signs: Vital Signs Temperature 97.1 F L 07/26/17 06:55 Pulse Rate 92 H 07/26/17 06:55 Respiratory Rate 20 07/26/17 06:55 Blood Pressure 104/58 07/26/17 06:55 O2 Sat by Pulse Oximetry (%) Pertinent Admission Physical Exam Findings: WITHDRAWAL SYMPTOMS. Laboratory Tests 07/23/17 07/23/17 08:00 10:00 Urine Color Tracey Urine Appearance Clear Urine pH 7.0 Ur Specific [place] 1.013 Urine Protein 1+ H Urine Glucose (UA) Negative Urine Ketones Negative Urine Blood 1+ H Urine Nitrite Negative Urine Bilirubin Negative Urine Urobilinogen 4.0 e.u/dl Ur Leukocyte Esterase Negative Urine WBC (Auto) 2 Urine RBC (Auto) 3 Ur Epithelial Cells Rare Urine Mucus Rare RPR Titer Nonreactive ADMISSION LABS NOTED. - Treatment Hospital Course: Detox Protocol Followed, Detoxed Safely, Responded well, Discharged Condition Good Patient has Accepted a Rehab Referral to: PT GOING TO [facility] OP SUBSTANCE USE TREATMENT PROGRAM (David [facility]EZCUA). - Medication Discharge Medications: Ambulatory Orders Nadolol [Corgard -] 40 mg PO DAILY #30 tablet 05/17/17 Pantoprazole Sodium [Protonix -] 40 mg PO BID #60 tablet.ec 05/17/17 - Diagnosis (1) Alcohol dependence with uncomplicated withdrawal Status: Acute (2) Dehydration Status: Acute (3) Alcoholic gastritis Status: Chronic Qualifiers: Chronicity: unspecified Gastritis bleeding: presence of bleeding unspecified Qualified Code(s): K29.20 - Alcoholic gastritis without bleeding (4) HTN (hypertension) Status: Chronic Qualifiers: Hypertension type: essential hypertension Qualified Code(s): I10 - Essential (primary) hypertension (5) Jaundice Status: Chronic (6) Liver cirrhosis, alcoholic Status: Chronic Qualifiers: Ascites presence: unspecified Qualified Code(s): K70.30 - Alcoholic cirrhosis of liver without ascites (7) Psychiatric disorder Status: Suspected - AMA Did Patient Leave Against Medical Advice: No
== END 2017-07-26 08:31 | disposition home or self-care (01) | DRG 775 ==
LOC: YASAS 23:33 → Y3N 23:51
PROVIDERS: ADMIT Internal Medicine; ATTEND Internal Medicine
PROC: HZ2ZZZZ Detoxification Services for Substance Abuse Treatment (ICD-10-PCS; principal; 2017-07-22)
DX: F10.230 Alcohol dependence with withdrawal, uncomplicated (principal); F32.9 Major depressive disorder, single episode, unspecified; I10 Essential (primary) hypertension; K29.20 Alcoholic gastritis without bleeding; K70.30 Alcoholic cirrhosis of liver without ascites; E87.6 Hypokalemia; E86.0 Dehydration
CPT/HCPCS: 36415; 80053; 81003; 81015; 82550; 82553; 83735; 84484; 85025; 85610; 86593; 93005; 93010; 99282-25

== ENCOUNTER 2017-08-16 17:48 | Inpatient (IN) | payer OTHER ==
[2017-08-16 18:25] VITALS: BMI 42.5
--- NOTE | 2017-08-16 19:14 | HP ---
CIWA Score - CIWA Score Nausea/Vomitin Muscle Tremors: 3 Anxiety: 3 Agitation: 3 Paroxysmal Sweats: 2 Orientation: 0-Oriented Tacttile Disturbances: 1-Very Mild Itch/Numbness Auditory Disturbances: 1-Very Mild Visual Disturbances: 0-None Headache: 2-Mild CIWA-Ar Total Score: 18 Admission ROS BHS - HPI Chief Complaint: I NEED HELP TO STOP DRINKING ALCOHOL Allergies/Adverse Reactions: Allergies Allergy/AdvReac Type Severity Reaction Status Date / Time No Known Allergies Allergy Verified 08/16/17 13:43 History of Present Illness: THIS 27 YEARS OLD MALE WITH ALCOHOL DEPENDENCE,SEEKING DETOX,WITHDRAWAL SYMPTOM, SEEN IN ER AT [facility] TODAY,RECEIVING LIBRIUM AT ER,REFER FOR DETOX LAST DETOX [facility] 07/22/17 07/26/17 LONGEST SOBRIETY 3 MONTHS Exam Limitations: No Limitations - Ebola screening Have you been sick,other than usual withdrawal symptoms: No - Review of Systems Constitutional: Loss of Appetite, Malaise, Night Sweats, Changes in sleep, Weakness EENT: reports: Nose Congestion Respiratory: reports: No Symptoms reported Cardiac: reports: No Symptoms Reported GI: reports: Nausea, Poor Appetite, Vomiting, Abdominal cramping : reports: No Symptoms Reported Musculoskeletal: reports: Back Pain, Muscle Pain Integumentary: reports: Dryness Neuro: reports: Headache, Tremors Endocrine: reports: No Symptoms Reported Hematology: reports: No Symptoms Reported Psychiatric: reports: No Sypmtoms Reported, Judgement Intact, Mood/Affect Appropiate, Orientated x3 Other Systems: Reviewed and Negative Patient History - Patient Medical History Hx Anemia: No Hx Asthma: No Hx Chronic Obstructive Pulmonary Disease (COPD): No Hx Cancer: No Hx Cardiac Disorders: No Hx Congestive Heart Failure: No Hx Hypertension: No Hx Hypercholesterolemia: No Hx Pacemaker: No HX Cerebrovascular Accident: No Hx Seizures: No Hx Dementia: No Hx Diabetes: No Hx Gastrointestinal Disorders: No Hx Liver Disease: Yes (Cirrhosis) Hx Genitourinary Disorders: No Hx Sexually Transmitted Disorders: No Hx Renal Disease (ESRD): No Hx Thyroid Disease: No Hx Human Immunodeficiency Virus (HIV): No Hx Hepatitis C: No Hx Depression: Yes (FEELS DEPRESSED WOULD LIKE TO SPEAK W/ PSYCHIATRIST) Hx Suicide Attempt: No Hx Bipolar Disorder: No Hx Schizophrenia: No Other Medical History: NO SUICIDAL,NO HOMCIDAL - Patient Surgical History Past Surgical History: No Hx Neurologic Surgery: No Hx Cataract Extraction: No Hx Cardiac Surgery: No Hx Lung Surgery: No Hx Breast Surgery: No Hx Breast Biopsy: No Hx Abdominal Surgery: No Hx Appendectomy: No Hx Cholecystectomy: No Hx Genitourinary Surgery: No Hx Section: No Hx Orthopedic Surgery: No Hx Hysterectomy: No Anesthesia Reaction: No - PPD History Previous Implant?: Yes Documented Results: Negative w/proof Implanted On Prior [facility] Admission?: Yes Date: 07/25/17 Results: 0 MM PPD to be Administered?: Yes - Smoking Cessation Smoking history: Never smoked Have you smoked in the past 12 months: No Aproximately how many cigarettes per day: 0 Cigars Per Day: 0 Hx Chewing Tobacco Use: No - Substance & Tx. History Hx Alcohol Use: Yes Hx Substance Use: No Substance Use Type: Alcohol Hx Substance Use Treatment: Yes ([facility] TO 07/26/17) - Substances Abused Alcohol Route: Oral Frequency: Daily Amount used: 04/18 PACK BEER Age of first use: 15 Date of Last Use: 08/16/17 Family Disease History - Family Disease History Family Disease History: Other: Father (ALCOHOLISM, ) Admission Physical Exam S - Vital Signs Vital Signs: Vital Signs - 24 hr 08/16/17 18:13 Temperature 98 F Pulse Rate 98 H Respiratory 18 Rate Blood Pressure 145/80 - Physical General Appearance: Yes: Tremorous, Irritable, Sweating, Anxious HEENTM: Yes: Normal ENT Inspection, PELON, Pharynx Normal Respiratory: Yes: Lungs Clear, Normal Breath Sounds, No Respiratory Distress Neck: Yes: Within Normal Limits, Supple, Trachea in good position Breast: Yes: Within Normal Limits Cardiology: Yes: Within Normal Limits, Regular Rhythm, Regular Rate, S1, S2 Abdominal: Yes: Within Normal Limits, Normal Bowel Sounds, Non Tender, Soft Genitourinary: Yes: Within Normal Limits Back: Yes: Muscle Spasm Musculoskeletal: Yes: Back pain, Muscle Pain Extremities: Yes: Within Normal Limits, Tremors 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 intact, Fully Oriented, Alert, Motor Strength 5/5 Integumentary: Yes: Dry, Other (TATTOES) - Diagnostic (1) Alcohol dependence with uncomplicated withdrawal Current Visit: No Status: Acute (2) Dehydration Current Visit: No Status: Acute (3) Liver cirrhosis, alcoholic Current Visit: No Status: Chronic Qualifiers: Ascites presence: unspecified Qualified Code(s): K70.30 - Alcoholic cirrhosis of liver without ascites (4) Depression Current Visit: Yes Status: Acute Cleared for Admission [facility] - Detox or Rehab [facility] Level of Care: Medically Managed Detox Regimen/Protocol: Librium [facility] Breath Alcohol Content Breath Alcohol Content: 0.083 Urine Drug Screen - Results Drug Screen Negative: No Urine Drug Screen Results: BZO-Benzodiazepines
[2017-08-16] MEDS ORDERED: MAGNESIUM HYDROX 2400MG/30ML ORAL SUSPENSION 30 ML CUP PO PRN (19:26)
[2017-08-16] MEDS ORDERED: chlordiazePOXIDE HCL 25 MG CAPSULE PO PRN (19:26)
[2017-08-16] MEDS ORDERED: P-EPHED 60MG/TRIPROLIDI 2.5MG TABLET PO PRN (19:26)
[2017-08-16] MEDS ORDERED: IBUPROFEN 400 MG TABLET (FP) PO PRN (19:26)
[2017-08-16] MEDS ORDERED: guaiFENesin/D-METHORPHAN HB 10 ML UNIT-DOSE CUPS PO PRN (19:26)
[2017-08-16] MEDS ORDERED: MAGNESIUM CITRATE 300 ML BOTTLE PO PRN (19:26)
[2017-08-16] MEDS ORDERED: MAG HYDROX/AL HYDROX/SIMETH 30 ML UNIT-DOSE CUP PO PRN (19:26)
[2017-08-16] MEDS ORDERED: LOPERAMIDE HCL 2 MG CAPSULE PO PRN (19:26)
[2017-08-16] MEDS ORDERED: MENTHOL/PHENOL 1 EACH UD MM PRN (19:26)
[2017-08-16] MEDS ORDERED: ACETAMINOPHEN 325 MG TABLET (FP) PO PRN (19:26)
[2017-08-16] MEDS ORDERED: hydrOXYzine PAMOATE 50 MG CAPSULE (FP) PO PRN (19:26)
[2017-08-16] MEDS ORDERED: chlordiazePOXIDE HCL 25 MG CAPSULE PO ONE (19:26)
[2017-08-16] MEDS: THIAMINE HCL 100 MG TABLET (FP) PO SCH (22:38)
[2017-08-16] MEDS: chlordiazePOXIDE HCL 25 MG CAPSULE PO SCH (22:38)
[2017-08-17] MEDS: chlordiazePOXIDE HCL 25 MG CAPSULE PO SCH ×4 (05:35→22:29)
--- NOTE | 2017-08-17 08:13 | EKG ---
Test Reason : Blood Pressure : / mmHG Vent. Rate : 099 BPM Atrial Rate : 099 BPM P-R Int : 142 ms QRS Dur : 090 ms QT Int : 386 ms P-R-T Axes : 051 -14 026 degrees QTc Int : 495 ms NORMAL SINUS RHYTHM PROLONGED QT ABNORMAL ECG WHEN COMPARED WITH ECG OF 16-AUG-2017 14:51, NO SIGNIFICANT CHANGE WAS FOUND Confirmed by LITA YAP, ELIANE ([id number]) on 08/17/2017 8:12:42 AM Referred By: Alec Mosqueda Confirmed By:ELIANE LONDON MD
[2017-08-17 10:12] LABS: HEMATOCRIT 33.6 % (35.4-49); HEMOGLOBIN 12.1 GM/dL (11.7-16.9); MCH 34.4 pg (25.7-33.7); MEAN CELL VOLUME 95.5 fl (80-96); PLATELET COUNT 50 K/MM3 (134-434); RBC 3.51 M/mm3 (4.00-5.60); RDW 13.1 % (11.9-15.9); WHITE BLOOD COUNT 5.2 K/mm3 (4.0-10.0)
[2017-08-17 10:24] LABS: CHLORIDE 104 mmol/L (98-107); POTASSIUM 3.4 mmol/L (3.5-5.1); SODIUM 137 mmol/L (136-145)
[2017-08-17 10:40] LABS: ALBUMIN 2.9 g/dl (3.4-5.0); ALK PHOS 123 U/L (45-117); ANION GAP 9 (8-16); BILIRUBIN,TOTAL 3.9 mg/dL (0.2-1.0); BLOOD UREA NITROGEN 5 mg/dL (7-18); CALCIUM 8.2 mg/dL (8.5-10.1); CO2 24 mmol/L (21-32); CREATININE 0.6 mg/dL (0.7-1.3); GLUCOSE,RANDOM 103 mg/dL (74-106); SGOT/AST 85 U/L (15-37); SGPT/ALT 35 U/L (12-78); TOT PROT 8.8 g/dl (6.4-8.2)
[2017-08-17] MEDS: PRENATAL VITAMINS W/ FOLIC ACID TABLET (FP) PO SCH (11:01)
[2017-08-17 13:04] LABS: URINE APPEARANCE CLEAR; URINE COLOR AMBER; URINE GLUCOSE (UA) NEGATIVE (NEGATIVE); URINE KETONE NEGATIVE (NEGATIVE); URINE LEUK ESTERASE NEGATIVE (NEGATIVE); URINE NITRITE NEGATIVE (NEGATIVE); URINE PROTEIN 1+ (NEGATIVE); URINE UROBILINOGEN 4.0 E.U/dl mg/dL (0.2-1.0)
[2017-08-17 13:12] LABS: EPI CELLS RARE /HPF (FEW); URINE HYALINE CAST 1 /lpf; URINE MUCUS FEW
--- NOTE | 2017-08-17 14:56 | PN ---
[facility] CIWA - CIWA Score Nausea/Vomitin Muscle Tremors: 3 Anxiety: 3 Agitation: 3 Paroxysmal Sweats: 3 Orientation: 0-Oriented Tacttile Disturbances: 1-Very Mild Itch/Numbness Auditory Disturbances: 0-None Visual Disturbances: 0-None Headache: 1-Very Mild CIWA-Ar Total Score: 17 [facility] Progress Note (SOAP) Subjective: Tremor, anxious, nausea, sweating Objective: 08/17/17 14:51 Last Vital Signs Temp Pulse Resp BP Pulse Ox 98.2 F 104 H 16 140/71 08/17/17 14:02 08/17/17 14:02 08/17/17 14:02 08/17/17 14:02 Laboratory Tests 08/17/17 08/17/17 08/17/17 08:00 08:00 08:00 WBC 5.2 RBC 3.51 L Hgb 12.1 Hct 33.6 L MCV 95.5 MCH 34.4 H MCHC 36.0 H RDW 13.1 Plt Count 50 L MPV 9.0 Sodium 137 Potassium 3.4 L Chloride 104 Carbon Dioxide 24 Anion Gap 9 BUN 5 L D Creatinine 0.6 L Creat Clearance w eGFR > 60 Random Glucose 103 Calcium 8.2 L Total Bilirubin 3.9 H D AST 85 H ALT 35 Alkaline Phosphatase 123 H Total Protein 8.8 H Albumin 2.9 L Urine Color Urine Appearance Urine pH Ur Specific [place] Urine Protein Urine Glucose (UA) Urine Ketones Urine Blood Urine Nitrite Urine Bilirubin Urine Urobilinogen Ur Leukocyte Esterase Urine WBC (Auto) Urine RBC (Auto) Ur Epithelial Cells Hyaline Casts Urine Mucus RPR Titer Nonreactive 08/17/17 10:07 WBC RBC Hgb Hct MCV MCH MCHC RDW Plt Count MPV Sodium Potassium Chloride Carbon Dioxide Anion Gap BUN Creatinine Creat Clearance w eGFR Random Glucose Calcium Total Bilirubin AST ALT Alkaline Phosphatase Total Protein Albumin Urine Color Tracey Urine Appearance Clear Urine pH 7.0 Ur Specific [place] 1.015 Urine Protein 1+ H Urine Glucose (UA) Negative Urine Ketones Negative Urine Blood 1+ H Urine Nitrite Negative Urine Bilirubin 2.0 Urine Urobilinogen 4.0 e.u/dl Ur Leukocyte Esterase Negative Urine WBC (Auto) 1 Urine RBC (Auto) 3 Ur Epithelial Cells Rare Hyaline Casts 1 Urine Mucus Few RPR Titer Labs reviewed: K 3.4, abnormal UA Assessment: 08/17/17 14:54 Withdrawal symptoms Noted with mild hypokalemia and abnormal UA Plan: Continue detox Mild hypokalemia: K Dur 40 meq PO x 1 dose, repeat serum K level in AM Abnormal UA: encouraged PO hydration (water), repeat UA
[2017-08-17] MEDS ORDERED: POTASSIUM CHLORIDE TABS 20 MEQ TABLET.ER (FP) PO ONE (14:58)
--- NOTE | 2017-08-17 18:31 | CONSULT ---
[facility] Psychiatric Consult - Data Date of interview: 08/17/17 Admission source: Self-referred Identifying data: Patient is 27 y/o male with his 2nd in patient Detox treament for alcoholuse disorder Substance Abuse History: Patient explained that he has been drinking beers 12 packs daily, past history of Vodka and wisky. He has been drinking daily for past 2-3 weeks. He explained a history of upper extremities tremors and alcohol withdrawal symptoms. Refer to addiction counselor note Medical History: Hisory of obesity and liver cirrhosis Psychiatric History: Patient denies psychiatric history, he denies depression, psychosis or suicide ideation Physical/Sexual Abuse/Trauma History: Patient denies history of abuse or trauma Mental Status Exam - Mental Status Exam Alert and Oriented to: Place, Person Cognitive Function: Good Patient Appearance: Unkempt Mood: Euthymic Affect: Appropriate Patient Behavior: Appropriate, Cooperative Speech Pattern: Clear Voice Loudness: Normal Thought Process: Intact Thought Disorder: Not Present Hallucinations: None Suicidal Ideation: None Homicidal Ideation: None Insight/Judgement: Poor Sleep: Well Appetite: Fair Muscle strength/Tone: Normal Gait/Station: Normal Psychiatric Findings - Problem List ([place] 1, 2,3) (1) Alcohol dependence with uncomplicated withdrawal Current Visit: Yes Status: Acute (2) Liver cirrhosis, alcoholic Current Visit: Yes Status: Chronic Qualifiers: Ascites presence: unspecified Qualified Code(s): K70.30 - Alcoholic cirrhosis of liver without ascites (3) Alcohol abuse Current Visit: No Status: Acute (4) Alcohol withdrawal Current Visit: No Status: Acute Qualifiers: Complication of substance-induced condition: with unspecified complication Qualified Code(s): F10.239 - Alcohol dependence with withdrawal, unspecified (5) HTN (hypertension) Current Visit: No Status: Chronic Qualifiers: Hypertension type: essential hypertension Qualified Code(s): I10 - Essential (primary) hypertension - Initial Treatment Plan Initial Treatment Plan: Continue inpatient Detox treatment
[2017-08-17] MEDS: MELATONIN 5 MG TABLETS PO PRN (22:29)
[2017-08-17] MEDS: THIAMINE HCL 100 MG TABLET (FP) PO SCH (22:29)
[2017-08-18] MEDS: chlordiazePOXIDE HCL 25 MG CAPSULE PO SCH ×3 (05:31→17:25)
[2017-08-18] MEDS: PRENATAL VITAMINS W/ FOLIC ACID TABLET (FP) PO SCH (10:40)
--- NOTE | 2017-08-18 12:20 | PN ---
[facility] CIWA - CIWA Score Nausea/Vomitin Muscle Tremors: 3 Anxiety: 2 Agitation: 1-Slight > Activity Paroxysmal Sweats: 1-Minimal Palms Moist Orientation: 0-Oriented Tacttile Disturbances: 1-Very Mild Itch/Numbness Auditory Disturbances: 1-Very Mild Visual Disturbances: 0-None Headache: 2-Mild CIWA-Ar Total Score: 14 S Progress Note (SOAP) Subjective: ALERT,IRRITABLE,ANXIOUS,TREMOR Objective: 08/18/17 12:16 Vital Signs Temperature 98.2 F 08/18/17 10:00 Pulse Rate 121 H 08/18/17 10:00 Respiratory Rate 20 08/18/17 10:00 Blood Pressure 137/84 08/18/17 10:00 O2 Sat by Pulse Oximetry (%) EKG SINUS TACHYCARDIA 110 NO CHEST PAIN,NO SOB,NO DIZZINESS 08/18/17 07:00 Potassium 3.7 Laboratory Last Values WBC 5.2 K/mm3 (4.0-10.0) 08/17/17 08:00 RBC 3.51 M/mm3 (4.00-5.60) L 08/17/17 08:00 Hgb 12.1 GM/dL (11.7-16.9) 08/17/17 08:00 Hct 33.6 % (35.4-49) L 08/17/17 08:00 MCV 95.5 fl (80-96) 08/17/17 08:00 MCH 34.4 pg (25.7-33.7) H 08/17/17 08:00 MCHC 36.0 g/dl (32.0-35.9) H 08/17/17 08:00 RDW 13.1 % (11.9-15.9) 08/17/17 08:00 Plt Count 50 K/MM3 (134-434) L 08/17/17 08:00 MPV 9.0 fl (7.5-11.1) 08/17/17 08:00 Sodium 137 mmol/L (136-145) 08/17/17 08:00 Potassium 3.7 mmol/L (3.5-5.1) 08/18/17 07:00 Chloride 104 mmol/L (98-107) 08/17/17 08:00 Carbon Dioxide 24 mmol/L (21-32) 08/17/17 08:00 Anion Gap 9 (8-16) 08/17/17 08:00 BUN 5 mg/dL (7-18) L D 08/17/17 08:00 Creatinine 0.6 mg/dL (0.7-1.3) L 08/17/17 08:00 Creat Clearance w eGFR > 60 (>60) 08/17/17 08:00 Random Glucose 103 mg/dL (74-106) 08/17/17 08:00 Calcium 8.2 mg/dL (8.5-10.1) L 08/17/17 08:00 Total Bilirubin 3.9 mg/dL (0.2-1.0) H D 08/17/17 08:00 AST 85 U/L (15-37) H 08/17/17 08:00 ALT 35 U/L (12-78) 08/17/17 08:00 Alkaline Phosphatase 123 U/L (45-117) H 08/17/17 08:00 Total Protein 8.8 g/dl (6.4-8.2) H 08/17/17 08:00 Albumin 2.9 g/dl (3.4-5.0) L 08/17/17 08:00 Urine Color Tracey 08/17/17 10:07 Urine Appearance Clear 08/17/17 10:07 Urine pH 7.0 (5.0-8.0) 08/17/17 10:07 Ur Specific [place] 1.015 (1.001-1.035) 08/17/17 10:07 Urine Protein 1+ (NEGATIVE) H 08/17/17 10:07 Urine Glucose (UA) Negative (NEGATIVE) 08/17/17 10:07 Urine Ketones Negative (NEGATIVE) 08/17/17 10:07 Urine Blood 1+ (NEGATIVE) H 08/17/17 10:07 Urine Nitrite Negative (NEGATIVE) 08/17/17 10:07 Urine Bilirubin 2.0 (<2.0 mg/dL) 08/17/17 10:07 Urine Urobilinogen 4.0 e.u/dl mg/dL (0.2-1.0) 08/17/17 10:07 Ur Leukocyte Esterase Negative (NEGATIVE) 08/17/17 10:07 Urine WBC (Auto) 1 /hpf (3-5) 08/17/17 10:07 Urine RBC (Auto) 3 /hpf (0-3) 08/17/17 10:07 Ur Epithelial Cells Rare /HPF (FEW) 08/17/17 10:07 Hyaline Casts 1 /lpf 08/17/17 10:07 Urine Mucus Few 08/17/17 10:07 RPR Titer Nonreactive (NONREACTIVE) 08/17/17 08:00 Assessment: 08/18/17 12:20 WITHDRAWAL SYMPTOM Plan: CONTINUE DETOX,
[2017-08-18] MEDS: THIAMINE HCL 100 MG TABLET (FP) PO SCH (22:19)
[2017-08-18] MEDS: chlordiazePOXIDE 5 MG CAPSULE PO SCH (22:19)
[2017-08-18] MEDS: MELATONIN 5 MG TABLETS PO PRN (22:19)
[2017-08-19] MEDS: chlordiazePOXIDE 5 MG CAPSULE PO SCH (05:23)
--- NOTE | 2017-08-19 08:31 | PN ---
S Progress Note (SOAP) Subjective: ALERT,NO COMPLAINT Objective: 08/19/17 08:28 Vital Signs Temperature 98.1 F 08/19/17 06:00 Pulse Rate 94 H 08/19/17 06:00 Respiratory Rate 18 08/19/17 06:00 Blood Pressure 128/70 08/19/17 06:00 O2 Sat by Pulse Oximetry (%) Assessment: 08/19/17 08:29 PATIENT HAS NO COMPLAINT,STABLE FOR DISCHARGE Plan: DISCHARGE TODAY,FOLLOW UP WITH AFTER CARE PROGRAM ARRANGEMENT
--- NOTE | 2017-08-19 08:34 | DS ---
[facility] Detox Discharge Summary Admission Date: 08/16/17 Discharge Date: 08/19/17 - History Present History: Alcohol Dependence Additional Comments: FOLLOW UP WITH AFTER CARE PROGRAM ARRANGEMENT Pertinent Past History: CIRRHOSIS - Physical Exam Results Vital Signs: Vital Signs Temperature 98.1 F 08/19/17 06:00 Pulse Rate 94 H 08/19/17 06:00 Respiratory Rate 18 08/19/17 06:00 Blood Pressure 128/70 08/19/17 06:00 O2 Sat by Pulse Oximetry (%) Pertinent Admission Physical Exam Findings: WITHDRAWAL SIGNS AND SYMPTOM Vital Signs Temperature 98.1 F 08/19/17 06:00 Pulse Rate 94 H 08/19/17 06:00 Respiratory Rate 18 08/19/17 06:00 Blood Pressure 128/70 08/19/17 06:00 O2 Sat by Pulse Oximetry (%) Laboratory Last Values WBC 5.2 K/mm3 (4.0-10.0) 08/17/17 08:00 RBC 3.51 M/mm3 (4.00-5.60) L 08/17/17 08:00 Hgb 12.1 GM/dL (11.7-16.9) 08/17/17 08:00 Hct 33.6 % (35.4-49) L 08/17/17 08:00 MCV 95.5 fl (80-96) 08/17/17 08:00 MCH 34.4 pg (25.7-33.7) H 08/17/17 08:00 MCHC 36.0 g/dl (32.0-35.9) H 08/17/17 08:00 RDW 13.1 % (11.9-15.9) 08/17/17 08:00 Plt Count 50 K/MM3 (134-434) L 08/17/17 08:00 MPV 9.0 fl (7.5-11.1) 08/17/17 08:00 Sodium 137 mmol/L (136-145) 08/17/17 08:00 Potassium 3.7 mmol/L (3.5-5.1) 08/18/17 07:00 Chloride 104 mmol/L (98-107) 08/17/17 08:00 Carbon Dioxide 24 mmol/L (21-32) 08/17/17 08:00 Anion Gap 9 (8-16) 08/17/17 08:00 BUN 5 mg/dL (7-18) L D 08/17/17 08:00 Creatinine 0.6 mg/dL (0.7-1.3) L 08/17/17 08:00 Creat Clearance w eGFR > 60 (>60) 08/17/17 08:00 Random Glucose 103 mg/dL (74-106) 08/17/17 08:00 Calcium 8.2 mg/dL (8.5-10.1) L 08/17/17 08:00 Total Bilirubin 3.9 mg/dL (0.2-1.0) H D 08/17/17 08:00 AST 85 U/L (15-37) H 08/17/17 08:00 ALT 35 U/L (12-78) 08/17/17 08:00 Alkaline Phosphatase 123 U/L (45-117) H 08/17/17 08:00 Total Protein 8.8 g/dl (6.4-8.2) H 08/17/17 08:00 Albumin 2.9 g/dl (3.4-5.0) L 08/17/17 08:00 Urine Color [place] 08/17/17 10:07 Urine Appearance Clear 08/17/17 10:07 Urine pH 7.0 (5.0-8.0) 08/17/17 10:07 Ur Specific [place] 1.015 (1.001-1.035) 08/17/17 10:07 Urine Protein 1+ (NEGATIVE) H 08/17/17 10:07 Urine Glucose (UA) Negative (NEGATIVE) 08/17/17 10:07 Urine Ketones Negative (NEGATIVE) 08/17/17 10:07 Urine Blood 1+ (NEGATIVE) H 08/17/17 10:07 Urine Nitrite Negative (NEGATIVE) 08/17/17 10:07 Urine Bilirubin 2.0 (<2.0 mg/dL) 08/17/17 10:07 Urine Urobilinogen 4.0 e.u/dl mg/dL (0.2-1.0) 08/17/17 10:07 Ur Leukocyte Esterase Negative (NEGATIVE) 08/17/17 10:07 Urine WBC (Auto) 1 /hpf (3-5) 08/17/17 10:07 Urine RBC (Auto) 3 /hpf (0-3) 08/17/17 10:07 Ur Epithelial Cells Rare /HPF (FEW) 08/17/17 10:07 Hyaline Casts 1 /lpf 08/17/17 10:07 Urine Mucus Few 08/17/17 10:07 RPR Titer Nonreactive (NONREACTIVE) 08/17/17 08:00 - Treatment Hospital Course: Detox Protocol Followed, Detoxed Safely, Responded well, Discharged Condition Good Patient has Accepted a Rehab Referral to: DECLINED - Medication Discharge Medications: Ambulatory Orders B12/Levomefolate Calcium/B-6 [Foltx Tablet] 1 each PO DAILY 08/16/17 Folic Acid - 1 mg PO DAILY 08/16/17 - Diagnosis (1) Alcohol dependence with uncomplicated withdrawal Current Visit: Yes Status: Acute (2) Dehydration Current Visit: No Status: Acute (3) Liver cirrhosis, alcoholic Current Visit: Yes Status: Chronic Qualifiers: Ascites presence: unspecified Qualified Code(s): K70.30 - Alcoholic cirrhosis of liver without ascites (4) Depression Current Visit: Yes Status: Chronic (5) Hypokalemia Current Visit: Yes Status: Acute - AMA Did Patient Leave Against Medical Advice: No
[2017-08-19 08:49] VITALS: BP 139/86; PULSE 111; TEMP 96.9
--- NOTE | 2017-08-19 12:01 | EKG ---
Test Reason : Blood Pressure : / mmHG Vent. Rate : 110 BPM Atrial Rate : 110 BPM P-R Int : 130 ms QRS Dur : 084 ms QT Int : 364 ms P-R-T Axes : 047 -20 027 degrees QTc Int : 492 ms SINUS TACHYCARDIA OTHERWISE NORMAL ECG WHEN COMPARED WITH ECG OF 17-AUG-2017 07:33, NO SIGNIFICANT CHANGE WAS FOUND Confirmed by MD BRYSON, LAILA ([id number]) on 08/19/2017 12:01:30 PM Referred By: Alec Mosqueda Confirmed By:LAILA MASSEY MD
[2017-08-19] MEDS ORDERED: chlordiazePOXIDE HCL 10 MG CAPSULE PO SCH (23:00)
== END 2017-08-19 09:20 | disposition home or self-care (01) | DRG 775 ==
LOC: YASAS 17:48 → Y6N 18:33
PROVIDERS: ADMIT Surgery; ATTEND Internal Medicine
PROC: HZ2ZZZZ Detoxification Services for Substance Abuse Treatment (ICD-10-PCS; principal; 2017-08-16)
DX: F10.230 Alcohol dependence with withdrawal, uncomplicated (principal); F32.9 Major depressive disorder, single episode, unspecified; I10 Essential (primary) hypertension; I45.81 Long QT syndrome; E86.0 Dehydration; E87.6 Hypokalemia; K70.30 Alcoholic cirrhosis of liver without ascites; R00.0 Tachycardia, unspecified; E66.9 Obesity, unspecified; Z68.41 Body mass index [BMI] 40.0-44.9, adult
CPT/HCPCS: 36415; 80053; 81003; 81015; 84132; 85025; 85027; 86593; 93005; 93010; 96365; 96366; 99283-25; J7030

== ENCOUNTER 2017-10-28 18:01 | Inpatient (IN) | payer OTHER ==
[2017-10-28 18:26] VITALS: BMI 47.2
[2017-10-28] MEDS ORDERED: ACETAMINOPHEN 325 MG TABLET (FP) PO PRN (21:10)
[2017-10-28] MEDS ORDERED: LOPERAMIDE HCL 2 MG CAPSULE PO PRN (21:10)
[2017-10-28] MEDS ORDERED: P-EPHED 60MG/TRIPROLIDI 2.5MG TABLET PO PRN (21:10)
[2017-10-28] MEDS ORDERED: MAG HYDROX/AL HYDROX/SIMETH 30 ML UNIT-DOSE CUP PO PRN (21:10)
[2017-10-28] MEDS ORDERED: guaiFENesin/D-METHORPHAN HB 10 ML UNIT-DOSE CUPS PO PRN (21:10)
[2017-10-28] MEDS ORDERED: chlordiazePOXIDE HCL 25 MG CAPSULE PO PRN (21:10)
[2017-10-28] MEDS ORDERED: IBUPROFEN 400 MG TABLET (FP) PO PRN (21:10)
[2017-10-28] MEDS ORDERED: MENTHOL/PHENOL 1 EACH UD MM PRN (21:10)
[2017-10-28] MEDS ORDERED: MAGNESIUM HYDROX 2400MG/30ML ORAL SUSPENSION 30 ML CUP PO PRN (21:10)
[2017-10-28] MEDS ORDERED: MAGNESIUM CITRATE 300 ML BOTTLE PO PRN (21:10)
--- NOTE | 2017-10-28 21:10 | HP ---
CIWA Score - CIWA Score Nausea/Vomitin-No Nausea/No Vomiting Muscle Tremors: 3 Anxiety: 3 Agitation: 3 Paroxysmal Sweats: 4-Forehead w/Sweat Beads Orientation: 0-Oriented Tacttile Disturbances: 0-None Auditory Disturbances: 0-None Visual Disturbances: 0-None Headache: 2-Mild CIWA-Ar Total Score: 15 Admission ROS BHS - HPI Chief Complaint: alcohol withdrawal symptoms Allergies/Adverse Reactions: Allergies Allergy/AdvReac Type Severity Reaction Status Date / Time No Known Allergies Allergy Verified 08/16/17 13:43 History of Present Illness: 27 yo male with hx alcohol dependence is here seeking detox. Patient reports recent relapse d/t fathers anniversary. PMHX: liver cirrhosis and depression. Denies suicidal / homicidal ideation or hx suicide attempts. Denies hx of seizures or blackouts. Longest period of sobriety two months. Exam Limitations: No Limitations - Ebola screening Have you been sick,other than usual withdrawal symptoms: No - Review of Systems Constitutional: Chills, Diaphoresis, Changes in sleep, Other (weight gain, tremors) EENT: reports: No Symptoms Reported Respiratory: reports: No Symptoms reported Cardiac: reports: No Symptoms Reported GI: reports: Poor Fluid Intake : reports: No Symptoms Reported Musculoskeletal: reports: No Symptoms Reported Integumentary: reports: No Symptoms Reported Endocrine: reports: See HPI Hematology: reports: No Symptoms Reported Psychiatric: reports: Orientated x3, Anxious Other Systems: Reviewed and Negative Patient History - Patient Medical History Hx Anemia: No Hx Asthma: No Hx Chronic Obstructive Pulmonary Disease (COPD): No Hx Cancer: No Hx Cardiac Disorders: No Hx Congestive Heart Failure: No Hx Hypertension: No Hx Hypercholesterolemia: No Hx Pacemaker: No HX Cerebrovascular Accident: No Hx Seizures: No Hx Dementia: No Hx Diabetes: No Hx Gastrointestinal Disorders: No Hx Liver Disease: Yes (Cirrhosis) Hx Genitourinary Disorders: No Hx Sexually Transmitted Disorders: No Hx Renal Disease (ESRD): No Hx Thyroid Disease: No Hx Human Immunodeficiency Virus (HIV): No Hx Hepatitis C: No Hx Depression: Yes (FEELS DEPRESSED WOULD LIKE TO SPEAK W/ PSYCHIATRIST) Hx Suicide Attempt: No Hx Bipolar Disorder: No Hx Schizophrenia: No - Patient Surgical History Past Surgical History: No Hx Neurologic Surgery: No Hx Cataract Extraction: No Hx Cardiac Surgery: No Hx Lung Surgery: No Hx Breast Surgery: No Hx Breast Biopsy: No Hx Abdominal Surgery: No Hx Appendectomy: No Hx Cholecystectomy: No Hx Genitourinary Surgery: No Hx Section: No Hx Orthopedic Surgery: No Hx Hysterectomy: No Anesthesia Reaction: No - PPD History Documented Results: Negative w/proof Implanted On Prior [facility] Admission?: No Date: 07/25/17 Results: 0 MM PPD to be Administered?: No - Smoking Cessation Smoking history: Never smoked Have you smoked in the past 12 months: No Aproximately how many cigarettes per day: 0 Cigars Per Day: 0 Hx Chewing Tobacco Use: No Initiated information on smoking cessation: No - Substance & Tx. History Hx Alcohol Use: Yes Hx Substance Use: Yes Substance Use Type: Alcohol Hx Substance Use Treatment: Yes ([facility] 08/16/17 -08/19/17) - Substances Abused Alcohol Route: Oral Frequency: Daily Amount used: 3 x 24 oz beer Age of first use: 15 Date of Last Use: 10/27/17 Family Disease History - Family Disease History Family Disease History: Other: Father (ALCOHOLISM, ) Admission Physical Exam [facility] - Vital Signs Vital Signs: Vital Signs - 24 hr 10/28/17 18:25 Temperature 99.2 F Pulse Rate 111 H Respiratory 20 Rate Blood Pressure 150/77 - Physical General Appearance: Yes: Disheveled, Mild Distress, Obese, Tremorous, Sweating HEENTM: Yes: EOMI, Hearing grossly Normal, Normal ENT Inspection, Normocephalic , Normal Voice, PELON, Pharynx Normal, Tm's normal Respiratory: Yes: Chest Non-Tender, Lungs Clear, Normal Breath Sounds, No Respiratory Distress, No Accessory Muscle Use Neck: Yes: Within Normal Limits Breast: Yes: Breast Exam Deferred Cardiology: Yes: Regular Rhythm, Tachycardia Abdominal: Yes: Normal Bowel Sounds, Non Tender, Soft, Protuberent Genitourinary: Yes: Within Normal Limits Back: Yes: Normal Inspection Extremities: Yes: Normal Capillary Refill, Normal Inspection, Normal Range of Motion, Non-Tender Neurological: Yes: water technician II-XII NML intact, Fully Oriented, Alert, Motor Strength 5/5, Depressed Affect Integumentary: Yes: Normal Color, Warm, Diaphoresis Lymphatic: Yes: Within Normal Limits - Diagnostic (1) Bereavement Current Visit: Yes Status: Suspected (2) Alcohol dependence with uncomplicated withdrawal Current Visit: Yes Status: Acute (3) Depression Current Visit: Yes Status: Suspected (4) Liver cirrhosis, alcoholic Current Visit: Yes Status: Chronic Qualifiers: Ascites presence: unspecified Qualified Code(s): K70.30 - Alcoholic cirrhosis of liver without ascites Cleared for Admission [facility] - Detox or Rehab [facility] Level of Care: Medically Managed Detox Regimen/Protocol: Librium [facility] Breath Alcohol Content Breath Alcohol Content: 0.003 Urine Drug Screen - Results Drug Screen Negative: Yes
[2017-10-28] MEDS ORDERED: MELATONIN 5 MG TABLETS PO PRN (22:00)
[2017-10-28] MEDS: chlordiazePOXIDE HCL 25 MG CAPSULE PO SCH (22:43)
[2017-10-28] MEDS: THIAMINE HCL 100 MG TABLET (FP) PO SCH (22:43)
[2017-10-29 00:13] LABS: URINE APPEARANCE CLEAR; URINE BILIRUBIN NEGATIVE (<2.0 mg/dL); URINE COLOR YELLOW; URINE GLUCOSE (UA) NEGATIVE (NEGATIVE); URINE KETONE NEGATIVE (NEGATIVE); URINE LEUK ESTERASE NEGATIVE (NEGATIVE); URINE NITRITE NEGATIVE (NEGATIVE); URINE PROTEIN NEGATIVE (NEGATIVE); URINE UROBILINOGEN 4.0 E.U/dl mg/dL (0.2-1.0)
[2017-10-29 00:23] LABS: EPI CELLS RARE /HPF (FEW); URINE MUCUS RARE
[2017-10-29] MEDS: chlordiazePOXIDE HCL 25 MG CAPSULE PO SCH ×4 (05:49→23:06)
--- NOTE | 2017-10-29 10:07 | EKG ---
Test Reason : Blood Pressure : / mmHG Vent. Rate : 106 BPM Atrial Rate : 106 BPM P-R Int : 178 ms QRS Dur : 088 ms QT Int : 366 ms P-R-T Axes : 053 000 031 degrees QTc Int : 486 ms SINUS TACHYCARDIA OTHERWISE NORMAL ECG WHEN COMPARED WITH ECG OF 18-AUG-2017 09:01, NO SIGNIFICANT CHANGE WAS FOUND Confirmed by ELIANE LONDON MD ([id number]) on 10/29/2017 10:07:40 AM Referred By: Confirmed By:ELIANE LONDON MD
[2017-10-29 10:08] LABS: ALBUMIN 2.9 g/dl (3.4-5.0); ANION GAP 10 (8-16); BILIRUBIN,TOTAL 5.1 mg/dL (0.2-1.0); BLOOD UREA NITROGEN 5 mg/dL (7-18); CALCIUM 8.4 mg/dL (8.5-10.1); CHLORIDE 105 mmol/L (98-107); CO2 23 mmol/L (21-32); CREATININE 0.5 mg/dL (0.7-1.3); GLUCOSE,RANDOM 113 mg/dL (74-106); POTASSIUM 4.2 mmol/L (3.5-5.1); SGOT/AST 76 U/L (15-37); SGPT/ALT 30 U/L (12-78); SODIUM 138 mmol/L (136-145); TOT PROT 7.9 g/dl (6.4-8.2)
[2017-10-29 10:09] LABS: ALK PHOS 141 U/L (45-117)
[2017-10-29 10:12] LABS: HEMATOCRIT 33.6 % (35.4-49); HEMOGLOBIN 11.8 GM/dL (11.7-16.9); MCH 33.4 pg (25.7-33.7); MCHC 35.2 g/dl (32.0-35.9); MEAN CELL VOLUME 94.7 fl (80-96); MEAN PLT VOLUME 8.8 fl (7.5-11.1); PLATELET COUNT 43 K/MM3 (134-434); RBC 3.54 M/mm3 (4.00-5.60); RDW 14.3 % (11.9-15.9); WHITE BLOOD COUNT 4.6 K/mm3 (4.0-10.0)
[2017-10-29] MEDS: PRENATAL VITAMINS W/ FOLIC ACID TABLET (FP) PO SCH (10:54)
--- NOTE | 2017-10-29 13:02 | EKG ---
Test Reason : Blood Pressure : / mmHG Vent. Rate : 100 BPM Atrial Rate : 100 BPM P-R Int : 152 ms QRS Dur : 084 ms QT Int : 376 ms P-R-T Axes : 051 -02 027 degrees QTc Int : 485 ms NORMAL SINUS RHYTHM PROLONGED QT ABNORMAL ECG WHEN COMPARED WITH ECG OF 28-OCT-2017 21:51, NO SIGNIFICANT CHANGE WAS FOUND Confirmed by ELIANE LONDON MD ([id number]) on 10/29/2017 1:02:32 PM Referred By: Confirmed By:ELIANE LONDON MD
--- NOTE | 2017-10-29 13:12 | PN ---
S CIWA - CIWA Score Nausea/Vomitin Muscle Tremors: 3 Anxiety: 4-Mod. Anxious/Guarded Agitation: 3 Paroxysmal Sweats: 2 Orientation: 0-Oriented Tacttile Disturbances: 0-None Auditory Disturbances: 0-None Visual Disturbances: 2-Mild Sensitivity Headache: 0-None Present CIWA-Ar Total Score: 16 BHS Progress Note (SOAP) Subjective: Sweating, Anxious, Tremors, Nausea. Objective: PATIENT A & O X 3, OBSERVED AMBULATING ON UNIT. NO ACUTE DISTRESS. 10/29/17 13:09 Vital Signs Temperature 98.7 F 10/29/17 09:03 Pulse Rate 92 H 10/29/17 09:03 Respiratory Rate 18 10/29/17 09:03 Blood Pressure 126/73 10/29/17 09:03 O2 Sat by Pulse Oximetry (%) Laboratory Tests 10/28/17 10/29/17 10/29/17 20:12 06:30 06:30 WBC 4.6 RBC 3.54 L Hgb 11.8 Hct 33.6 L MCV 94.7 MCH 33.4 MCHC 35.2 RDW 14.3 Plt Count 43 L MPV 8.8 Sodium 138 Potassium 4.2 Chloride 105 Carbon Dioxide 23 Anion Gap 10 BUN 5 L Creatinine 0.5 L Creat Clearance w eGFR > 60 Random Glucose 113 H Calcium 8.4 L Total Bilirubin 5.1 H AST 76 H ALT 30 Alkaline Phosphatase 141 H Total Protein 7.9 Albumin 2.9 L Urine Color Yellow Urine Appearance Clear Urine pH 8.0 Ur Specific [place] 1.014 Urine Protein Negative Urine Glucose (UA) Negative Urine Ketones Negative Urine Blood 1+ H Urine Nitrite Negative Urine Bilirubin Negative Urine Urobilinogen 4.0 e.u/dl Ur Leukocyte Esterase Negative Urine WBC (Auto) 1 Urine RBC (Auto) 4 Ur Epithelial Cells Rare Urine Mucus Rare RPR Titer 10/29/17 06:30 WBC RBC Hgb Hct MCV MCH MCHC RDW Plt Count MPV Sodium Potassium Chloride Carbon Dioxide Anion Gap BUN Creatinine Creat Clearance w eGFR Random Glucose Calcium Total Bilirubin AST ALT Alkaline Phosphatase Total Protein Albumin Urine Color Urine Appearance Urine pH Ur Specific [place] Urine Protein Urine Glucose (UA) Urine Ketones Urine Blood Urine Nitrite Urine Bilirubin Urine Urobilinogen Ur Leukocyte Esterase Urine WBC (Auto) Urine RBC (Auto) Ur Epithelial Cells Urine Mucus RPR Titer Nonreactive LABS NOTED. Assessment: 10/29/17 13:09 WITHDRAWAL SYMPTOMS. THROMBOCYTOPENIA. 10/29/17 13:12 Plan: CONTINUE DETOX. HFP, REPEAT PLATELET LEVEL ON 10/31/2017 FOR ADMISSION ABNORMALITIES.
--- NOTE | 2017-10-29 16:31 | CONSULT ---
[facility] Psychiatric Consult - Data Date of interview: 10/29/17 Admission source: [facility] Identifying data: Readmission to [facility] for this 27 y/o [place]-born male seeking detox treatment on for alcohol dependence.Patient is in a common -law relationship,father of three,domiciled and currently employed. Substance Abuse History: Discussed with patient.Mr Luna reports that he relapsed into alcohol use around the 08 of October after a couple of weeks of sobritey.Has not stopped until this [facility] visit.Details in current [facility] report : Smoking history: Never smoked. Have you smoked in the past 12 months: No. Aproximately how many cigarettes per day: 0. Cigars Per Day: 0. Hx Chewing Tobacco Use: No. Initiated information on smoking cessation: No. - Substance & Tx. History. Hx Alcohol Use: Yes. Hx Substance Use: Yes. Substance Use Type : Alcohol. Hx Substance Use Treatment: Yes ([facility] 08/16/17 -08/19/17). - Substances Abused. Alcohol. Route: Oral. Frequency: Daily. Amount used: 3 x 24 oz beer. Age of first use: 15. Date of Last Use: 10/27/17 Medical History: GERD,cirrhosis of the liver,gastritis and hypertension. Psychiatric History: Patient denies history of psychiatric hospitalizations.No history of suicide attempts.Mr Luna is currently attending an outpatient program at the [facility] in [place].Not on psychotropic medications. Physical/Sexual Abuse/Trauma History: Patient denies. Additional Comment: Drug Screen is negative. Mental Status Exam - Mental Status Exam Alert and Oriented to: Time, Place, Person Cognitive Function: Good Patient Appearance: Well Groomed (short stature,obese ; tattoos on both arms + forearms) Mood: Hopeful, Euthymic Affect: Appropriate, Normal Range Patient Behavior: Appropriate, Cooperative Speech Pattern: Clear (czech-speaking), Appropriate Voice Loudness: Normal Thought Process: Intact, Goal Oriented Thought Disorder: Not Present Hallucinations: Denies Suicidal Ideation: Denies Homicidal Ideation: Denies Insight/Judgement: Poor Sleep: Well Appetite: Good Muscle strength/Tone: Normal Gait/Station: Normal Psychiatric Findings - Problem List ([place] 1, 2,3) (1) Alcohol dependence with uncomplicated withdrawal Current Visit: Yes Status: Acute - Initial Treatment Plan Initial Treatment Plan: Psychoeducation.Sleep hygiene.Detoxification.Support.Observation.
[2017-10-29] MEDS: THIAMINE HCL 100 MG TABLET (FP) PO SCH (23:06)
[2017-10-30] MEDS: chlordiazePOXIDE HCL 25 MG CAPSULE PO SCH (05:41)
[2017-10-30] MEDS: PRENATAL VITAMINS W/ FOLIC ACID TABLET (FP) PO SCH (10:40)
[2017-10-30 10:41] VITALS: BP 142/82; PULSE 113; TEMP 98.2
[2017-10-30] MEDS ORDERED: chlordiazePOXIDE 5 MG CAPSULE PO SCH ×2 (11:00→23:00)
--- NOTE | 2017-10-30 16:20 | PN ---
[facility] CIWA - CIWA Score Nausea/Vomitin-No Nausea/No Vomiting Muscle Tremors: None Anxiety: 4-Mod. Anxious/Guarded Agitation: 3 Paroxysmal Sweats: 2 Orientation: 0-Oriented Tacttile Disturbances: 2-Mild Itch/Numbness/Burn Auditory Disturbances: 1-Very Mild Visual Disturbances: 2-Mild Sensitivity Headache: 0-None Present CIWA-Ar Total Score: 14 S Progress Note (SOAP) Subjective: Tremors, Sweating, Anxious. Objective: PATIENT A & O X 3, OBSERVED AMBULATING ON UNIT. NO ACUTE DISTRESS. 10/30/17 16:18 Vital Signs Temperature 98.2 F 10/30/17 10:40 Pulse Rate 113 H 10/30/17 10:40 Respiratory Rate 20 10/30/17 10:40 Blood Pressure 142/82 10/30/17 10:40 O2 Sat by Pulse Oximetry (%) Laboratory Tests 10/28/17 10/29/17 10/29/17 20:12 06:30 06:30 WBC 4.6 RBC 3.54 L Hgb 11.8 Hct 33.6 L MCV 94.7 MCH 33.4 MCHC 35.2 RDW 14.3 Plt Count 43 L MPV 8.8 Sodium 138 Potassium 4.2 Chloride 105 Carbon Dioxide 23 Anion Gap 10 BUN 5 L Creatinine 0.5 L Creat Clearance w eGFR > 60 Random Glucose 113 H Calcium 8.4 L Total Bilirubin 5.1 H AST 76 H ALT 30 Alkaline Phosphatase 141 H Total Protein 7.9 Albumin 2.9 L Urine Color Yellow Urine Appearance Clear Urine pH 8.0 Ur Specific [place] 1.014 Urine Protein Negative Urine Glucose (UA) Negative Urine Ketones Negative Urine Blood 1+ H Urine Nitrite Negative Urine Bilirubin Negative Urine Urobilinogen 4.0 e.u/dl Ur Leukocyte Esterase Negative Urine WBC (Auto) 1 Urine RBC (Auto) 4 Ur Epithelial Cells Rare Urine Mucus Rare RPR Titer 10/29/17 06:30 WBC RBC Hgb Hct MCV MCH MCHC RDW Plt Count MPV Sodium Potassium Chloride Carbon Dioxide Anion Gap BUN Creatinine Creat Clearance w eGFR Random Glucose Calcium Total Bilirubin AST ALT Alkaline Phosphatase Total Protein Albumin Urine Color Urine Appearance Urine pH Ur Specific [place] Urine Protein Urine Glucose (UA) Urine Ketones Urine Blood Urine Nitrite Urine Bilirubin Urine Urobilinogen Ur Leukocyte Esterase Urine WBC (Auto) Urine RBC (Auto) Ur Epithelial Cells Urine Mucus RPR Titer Nonreactive LABS NOTED. Assessment: 10/30/17 16:18 WITHDRAWAL SYMPTOMS. Plan: CONTINUE DETOX. PATIENT REPORTS THAT CURRENT WITHDRAWAL SYMPTOMS ARE RELATIVELY MINIMAL AND THAT HE IS TOLERATING THEM WELL. AT PATIENT'S REQUEST, CURRENT DETOX MEDICATION REGIMEN (LIBRIUM) MODIFIED SO THAT PATIENT MAY BE DISCHARGED TOMORROW, 2017.
--- NOTE | 2017-10-30 16:21 | DS ---
[facility] Detox Discharge Summary Admission Date: 10/28/17 Discharge Date: 10/30/17 - History Present History: Alcohol Dependence Additional Comments: PATIENT DOES NOT WISH TO REMAIN TO COMPLETE DETOX REGIMEN. RISKS OF LEAVING DETOX UNIT AGAINST MEDICAL ADVICE AND PRIOR TO COMPLETION OF DETOX REGIMEN EXPLAINED TO PATIENT. PATIENT ADVISED TO GO IMMEDIATELY TO NEAREST ER SHOULD ANY INTOLERABLE DETOX SYMPTOMS DEVELOP AT ANY TIME. PATIENT LEFT DETOX UNIT IN STABLE MEDICAL CONDITION. Pertinent Past History: Liver Cirrhosis, Depression, Bereavement, Thrombocytopenia. - Physical Exam Results Vital Signs: Vital Signs Temperature 98.2 F 10/30/17 10:40 Pulse Rate 113 H 10/30/17 10:40 Respiratory Rate 20 10/30/17 10:40 Blood Pressure 142/82 10/30/17 10:40 O2 Sat by Pulse Oximetry (%) Pertinent Admission Physical Exam Findings: WITHDRAWAL SYMPTOMS. Laboratory Tests 10/28/17 10/29/17 10/29/17 20:12 06:30 06:30 WBC 4.6 RBC 3.54 L Hgb 11.8 Hct 33.6 L MCV 94.7 MCH 33.4 MCHC 35.2 RDW 14.3 Plt Count 43 L MPV 8.8 Sodium 138 Potassium 4.2 Chloride 105 Carbon Dioxide 23 Anion Gap 10 BUN 5 L Creatinine 0.5 L Creat Clearance w eGFR > 60 Random Glucose 113 H Calcium 8.4 L Total Bilirubin 5.1 H AST 76 H ALT 30 Alkaline Phosphatase 141 H Total Protein 7.9 Albumin 2.9 L Urine Color Yellow Urine Appearance Clear Urine pH 8.0 Ur Specific [place] 1.014 Urine Protein Negative Urine Glucose (UA) Negative Urine Ketones Negative Urine Blood 1+ H Urine Nitrite Negative Urine Bilirubin Negative Urine Urobilinogen 4.0 e.u/dl Ur Leukocyte Esterase Negative Urine WBC (Auto) 1 Urine RBC (Auto) 4 Ur Epithelial Cells Rare Urine Mucus Rare RPR Titer 10/29/17 06:30 WBC RBC Hgb Hct MCV MCH MCHC RDW Plt Count MPV Sodium Potassium Chloride Carbon Dioxide Anion Gap BUN Creatinine Creat Clearance w eGFR Random Glucose Calcium Total Bilirubin AST ALT Alkaline Phosphatase Total Protein Albumin Urine Color Urine Appearance Urine pH Ur Specific [place] Urine Protein Urine Glucose (UA) Urine Ketones Urine Blood Urine Nitrite Urine Bilirubin Urine Urobilinogen Ur Leukocyte Esterase Urine WBC (Auto) Urine RBC (Auto) Ur Epithelial Cells Urine Mucus RPR Titer Nonreactive LABS NOTED. - Treatment Hospital Course: Detoxed Safely - Medication Discharge Medications: Ambulatory Orders B12/Levomefolate Calcium/B-6 [Foltx Tablet] 1 each PO DAILY 08/16/17 Folic Acid - 1 mg PO DAILY 08/16/17 - Diagnosis (1) Alcohol dependence with uncomplicated withdrawal Status: Acute (2) Liver cirrhosis, alcoholic Status: Chronic Qualifiers: Ascites presence: unspecified Qualified Code(s): K70.30 - Alcoholic cirrhosis of liver without ascites (3) Bereavement Status: Suspected (4) Depression Status: Suspected Qualifiers: Depression Type: unspecified Qualified Code(s): F32.9 - Major depressive disorder, single episode, unspecified - AMA Did Patient Leave Against Medical Advice: Yes (PATIENT DID NOT WISH TO REMAIN TO COMPLETE DETOX REGIMEN.)
[2017-10-31] MEDS ORDERED: chlordiazePOXIDE HCL 10 MG CAPSULE PO SCH ×2 (17:00→23:00)
== END 2017-10-30 13:06 | disposition left against medical advice (07) | DRG 770 ==
LOC: YASAS 18:01 → Y3N 19:44
PROVIDERS: ADMIT Surgery; ATTEND Surgery
PROC: HZ2ZZZZ Detoxification Services for Substance Abuse Treatment (ICD-10-PCS; principal; 2017-10-28)
DX: F10.230 Alcohol dependence with withdrawal, uncomplicated (principal); F32.9 Major depressive disorder, single episode, unspecified; K70.30 Alcoholic cirrhosis of liver without ascites; K21.9 Gastro-esophageal reflux disease without esophagitis; I10 Essential (primary) hypertension; Z63.4 Disappearance and death of family member
CPT/HCPCS: 36415; 80053; 81003; 81015; 85027; 86593; 93005; 93010

== ENCOUNTER 2017-11-25 19:33 | Inpatient (IN) | payer OTHER ==
--- NOTE | 2017-11-25 21:46 | HP ---
CIWA Score - CIWA Score Nausea/Vomitin-Mild Nausea/No Vomiting Muscle Tremors: 3 Anxiety: 2 Agitation: 2 Paroxysmal Sweats: 1-Minimal Palms Moist Orientation: 1-Uncertain about Date Tacttile Disturbances: 0-None Auditory Disturbances: 0-None Visual Disturbances: 1-Very Mild Sensitivity Headache: 2-Mild CIWA-Ar Total Score: 13 Admission ROS BHS - HPI Chief Complaint: WITHDRAWAL SYMPTOMS Allergies/Adverse Reactions: Allergies Allergy/AdvReac Type Severity Reaction Status Date / Time No Known Allergies Allergy Verified 11/25/17 21:55 History of Present Illness: 27 Y.O. MAN WITH HISTORY OF ALCOHOL DEPENDENCE IS HERE SEEKING DETOX. HE WAS LAST HERE FOR DETOX ON 10/30/17. LONGEST PERIOD OF SOBRIETY HAS BEEN 3 MONTHS. Exam Limitations: No Limitations - Ebola screening Have you traveled outside of the country in the last 21 days: No (N) Have you had contact with anyone from an Ebola affected area: No Do you have a fever: No - Review of Systems Constitutional: Unintentional Wgt. Loss EENT: reports: Tearing Respiratory: reports: No Symptoms reported Cardiac: reports: No Symptoms Reported GI: reports: No Symptoms Reported : reports: No Symptoms Reported Musculoskeletal: reports: Back Pain Integumentary: reports: No Symptoms Reported Neuro: reports: No Symptoms reported Endocrine: reports: No Symptoms Reported Hematology: reports: No Symptoms Reported Psychiatric: reports: Orientated x3 Other Systems: Reviewed and Negative Patient History - Patient Medical History Hx Anemia: No Hx Asthma: No Hx Chronic Obstructive Pulmonary Disease (COPD): No Hx Cancer: No Hx Cardiac Disorders: No Hx Congestive Heart Failure: No Hx Hypertension: No Hx Hypercholesterolemia: No Hx Pacemaker: No HX Cerebrovascular Accident: No Hx Seizures: No Hx Dementia: No Hx Diabetes: No Hx Gastrointestinal Disorders: No Hx Liver Disease: Yes (Cirrhosis) Hx Genitourinary Disorders: No Hx Sexually Transmitted Disorders: No Hx Renal Disease (ESRD): No Hx Thyroid Disease: No Hx Human Immunodeficiency Virus (HIV): No Hx Hepatitis C: No Hx Depression: Yes Hx Suicide Attempt: No Hx Bipolar Disorder: No Hx Schizophrenia: No - Patient Surgical History Past Surgical History: No Hx Neurologic Surgery: No Hx Cataract Extraction: No Hx Cardiac Surgery: No Hx Lung Surgery: No Hx Breast Surgery: No Hx Breast Biopsy: No Hx Abdominal Surgery: No Hx Appendectomy: No Hx Cholecystectomy: No Hx Genitourinary Surgery: No Hx Section: No Hx Orthopedic Surgery: No Hx Hysterectomy: No Anesthesia Reaction: No - PPD History Previous Implant?: Yes Documented Results: Negative w/proof Implanted On Prior [facility] Admission?: Yes Date: 07/25/17 Results: 0 MM PPD to be Administered?: No - Reproductive History Patient is a Female of Child Bearing Age (11 -55 yrs old): No - Smoking Cessation Smoking history: Never smoked Have you smoked in the past 12 months: No Aproximately how many cigarettes per day: 0 Cigars Per Day: 0 Hx Chewing Tobacco Use: No - Substance & Tx. History Hx Alcohol Use: Yes Hx Substance Use: No Substance Use Type: Alcohol Hx Substance Use Treatment: Yes (DETOX: 10/2017) - Substances Abused Alcohol Route: Oral Frequency: 3-6 times per week Amount used: 4 24OZ CANS OF BEER Age of first use: 15 Date of Last Use: 11/25/17 Family Disease History - Family Disease History Family Disease History: Other: Father (ALCOHOLISM, ) Admission Physical Exam BHS - Vital Signs Vital Signs: Last Vital Signs Temp Pulse Resp BP Pulse Ox 98.2 F 103 H 18 159/105 11/25/17 21:45 11/25/17 21:45 11/25/17 21:45 11/25/17 21:45 - Physical General Appearance: Yes: Obese, Sweating, Anxious HEENTM: Yes: Hearing grossly Normal, Normal ENT Inspection, Normocephalic Respiratory: Yes: Chest Non-Tender, Lungs Clear, Normal Breath Sounds, No Respiratory Distress, No Accessory Muscle Use Neck: Yes: Within Normal Limits Breast: Yes: Breast Exam Deferred Cardiology: Yes: Regular Rhythm, Tachycardia Abdominal: Yes: Normal Bowel Sounds, Non Tender, Flat Genitourinary: Yes: Other (NO COMPLAINTS REPORTED) Back: Yes: Normal Inspection Musculoskeletal: Yes: Back pain Extremities: Yes: Normal Inspection, Normal Range of Motion, Non-Tender Neurological: Yes: Fully Oriented, Alert, Normal Mood/Affect, Normal Response Integumentary: Yes: Normal Color, Dry, Warm - Diagnostic (1) Alcohol dependence with uncomplicated withdrawal Status: Chronic (2) HTN (hypertension) Current Visit: Yes Status: Chronic Qualifiers: Hypertension type: essential hypertension Qualified Code(s): I10 - Essential (primary) hypertension (3) Liver cirrhosis, alcoholic Current Visit: Yes Status: Chronic Qualifiers: Ascites presence: unspecified Qualified Code(s): K70.30 - Alcoholic cirrhosis of liver without ascites Cleared for Admission [facility] - Detox or Rehab [facility] Level of Care: Medically Managed Detox Regimen/Protocol: Librium [facility] Breath Alcohol Content Breath Alcohol Content: 0.003
[2017-11-25 21:55] VITALS: BMI 44.9
[2017-11-25] MEDS ORDERED: LOPERAMIDE HCL 2 MG CAPSULE PO PRN (22:01)
[2017-11-25] MEDS ORDERED: MAGNESIUM HYDROX 2400MG/30ML ORAL SUSPENSION 30 ML CUP PO PRN (22:01)
[2017-11-25] MEDS ORDERED: hydrOXYzine PAMOATE 50 MG CAPSULE (FP) PO PRN (22:01)
[2017-11-25] MEDS ORDERED: MAGNESIUM CITRATE 300 ML BOTTLE PO PRN (22:01)
[2017-11-25] MEDS ORDERED: P-EPHED 60MG/TRIPROLIDI 2.5MG TABLET PO PRN (22:01)
[2017-11-25] MEDS ORDERED: guaiFENesin/D-METHORPHAN HB 10 ML UNIT-DOSE CUPS PO PRN (22:01)
[2017-11-25] MEDS ORDERED: IBUPROFEN 400 MG TABLET (FP) PO PRN (22:01)
[2017-11-25] MEDS ORDERED: chlordiazePOXIDE HCL 25 MG CAPSULE PO PRN (22:01)
[2017-11-25] MEDS ORDERED: ACETAMINOPHEN 325 MG TABLET (FP) PO PRN (22:01)
[2017-11-25] MEDS ORDERED: MENTHOL/PHENOL 1 EACH UD MM PRN (22:01)
[2017-11-25] MEDS ORDERED: chlordiazePOXIDE HCL 25 MG CAPSULE PO ONE (22:15)
[2017-11-25] MEDS: chlordiazePOXIDE HCL 25 MG CAPSULE PO SCH (22:45)
[2017-11-26] MEDS: chlordiazePOXIDE HCL 25 MG CAPSULE PO SCH ×4 (05:22→22:16)
--- NOTE | 2017-11-26 09:38 | PN ---
BHS CIWA - CIWA Score Nausea/Vomitin Muscle Tremors: 3 Anxiety: 2 Agitation: 2 Paroxysmal Sweats: 3 Orientation: 0-Oriented Tacttile Disturbances: 1-Very Mild Itch/Numbness Auditory Disturbances: 0-None Visual Disturbances: 0-None Headache: 0-None Present CIWA-Ar Total Score: 13 BHS Progress Note (SOAP) Subjective: interrupted sleep, sweats , sweats Objective: 11/26/17 09:34 Vital Signs Temperature 98.2 F 11/26/17 07:45 Pulse Rate 97 H 11/26/17 07:45 Respiratory Rate 18 11/26/17 07:45 Blood Pressure 140/79 11/26/17 07:45 O2 Sat by Pulse Oximetry (%) pending labs pt aox3 sitting up in bed eatting food Assessment: 11/26/17 09:35 withdrawal sx's Plan: cont. detox increase fluids f/up pending labs
[2017-11-26] MEDS ORDERED: ACETAMINOPHEN 325 MG TABLET (FP) PO PRN (09:49)
--- NOTE | 2017-11-26 09:51 | CONSULT ---
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 Substance Abuse History: - Smoking Cessation. Smoking history: Never smoked. Have you smoked in the past 12 months: No. Aproximately how many cigarettes per day: 0. Cigars Per Day: 0. Hx Chewing Tobacco Use: No. - Substance & Tx. History. Hx Alcohol Use: Yes. Hx Substance Use: No. Substance Use Type: Alcohol. Hx Substance Use Treatment: Yes (DETOX: 10/2017). - Substances Abused. Alcohol. Route: Oral. Frequency: 3-6 times per week. Amount used : 4 24OZ CANS OF BEER. Age of first use: 15. Date of Last Use: 11/25/17 Medical History: Liver Cirrhosis, HTN, Gastritis history, Thrombocytopenia, Prolonged QT Inteval, Psychiatric History: Patient reports history of depression and anxiety, reports no medications taking prior to admission. Denies suicidal, homicidal history. Physical/Sexual Abuse/Trauma History: Denies Additional Comment: Observation. Detox Unit Care Protocol Mental Status Exam - Mental Status Exam Alert and Oriented to: Person Cognitive Function: Fair Patient Appearance: Unkempt Mood: Sad Affect: Flat Patient Behavior: Sedated Speech Pattern: Delayed Voice Loudness: Mildly Soft/Quiet Thought Process: Circumstantial Thought Disorder: Being Controlled Hallucinations: Denies Suicidal Ideation: Denies Homicidal Ideation: Denies Insight/Judgement: Fair Sleep: Difficulty falling asleep Appetite: Weight loss Muscle strength/Tone: Mild Hypotonicity Gait/Station: Shuffling Additional Comments: Observation. Detox Unit Care Protocol Psychiatric Findings - Problem List ([place] 1, 2,3) (1) HTN (hypertension) Current Visit: Yes Status: Chronic Qualifiers: Hypertension type: essential hypertension Qualified Code(s): I10 - Essential (primary) hypertension (2) Liver cirrhosis, alcoholic Current Visit: Yes Status: Chronic Qualifiers: Ascites presence: unspecified Qualified Code(s): K70.30 - Alcoholic cirrhosis of liver without ascites (3) Alcohol abuse Current Visit: No Status: Acute (4) Alcohol withdrawal Current Visit: No Status: Acute Qualifiers: Complication of substance-induced condition: with unspecified complication Qualified Code(s): F10.239 - Alcohol dependence with withdrawal, unspecified (5) Hyperbilirubinemia Current Visit: No Status: Acute (6) Prolonged Q-T interval on ECG Current Visit: No Status: Acute (7) Jaundice Current Visit: No Status: Chronic (8) Macrocytosis Current Visit: No Status: Chronic (9) Thrombocytopenia Current Visit: No Status: Chronic (10) Alcohol withdrawal Current Visit: No Status: Ruled-out Qualifiers: Complication of substance-induced condition: with unspecified complication Qualified Code(s): F10.239 - Alcohol dependence with withdrawal, unspecified - Initial Treatment Plan Initial Treatment Plan: Observation. Detox Unit Care Protocol
[2017-11-26] MEDS ORDERED: NADOLOL 40 MG TABLET (FP) PO SCH (10:00)
[2017-11-26] MEDS: NADOLOL 20 MG TABLET (FP) PO SCH (10:53)
[2017-11-26] MEDS: PRENATAL VITAMINS W/ FOLIC ACID TABLET (FP) PO SCH (10:53)
[2017-11-26] MEDS ORDERED: ONDANSETRON *ODT* 4 MG TABLET SL ONE (10:55)
[2017-11-26 10:59] LABS: URINE APPEARANCE CLEAR; URINE COLOR AMBER; URINE GLUCOSE (UA) NEGATIVE (NEGATIVE); URINE KETONE NEGATIVE (NEGATIVE); URINE LEUK ESTERASE NEGATIVE (NEGATIVE); URINE NITRITE NEGATIVE (NEGATIVE); URINE UROBILINOGEN 4.0 E.U/dl mg/dL (0.2-1.0)
[2017-11-26 11:09] LABS: HEMATOCRIT 35.8 % (35.4-49); HEMOGLOBIN 12.5 GM/dL (11.7-16.9); MCH 33.1 pg (25.7-33.7); MEAN CELL VOLUME 94.6 fl (80-96); RBC 3.79 M/mm3 (4.00-5.60); RDW 14.4 % (11.9-15.9); WHITE BLOOD COUNT 4.5 K/mm3 (4.0-10.0)
[2017-11-26 11:11] LABS: URINE PROTEIN 2+ (NEGATIVE)
[2017-11-26 11:13] LABS: EPI CELLS RARE /HPF (FEW); URINE MUCUS RARE
[2017-11-26 11:28] LABS: PLATELET COUNT 34 K/MM3 (134-434)
[2017-11-26 11:29] LABS: ALBUMIN 2.8 g/dl (3.4-5.0); ANION GAP 9 MMOL/L (8-16); BILIRUBIN,TOTAL 4.8 mg/dL (0.2-1.0); BLOOD UREA NITROGEN 8 mg/dL (7-18); CALCIUM 8.1 mg/dL (8.5-10.1); CHLORIDE 99 mmol/L (98-107); CO2 28 mmol/L (21-32); CREATININE 0.5 mg/dL (0.7-1.3); GLUCOSE,RANDOM 117 mg/dL (74-106); POTASSIUM 3.6 mmol/L (3.5-5.1); SGOT/AST 104 U/L (15-37); SGPT/ALT 42 U/L (12-78); SODIUM 136 mmol/L (136-145); TOT PROT 8.2 g/dl (6.4-8.2)
[2017-11-26 11:30] LABS: ALK PHOS 131 U/L (45-117)
--- NOTE | 2017-11-26 20:15 | EKG ---
Test Reason : Blood Pressure : / mmHG Vent. Rate : 101 BPM Atrial Rate : 101 BPM P-R Int : 138 ms QRS Dur : 090 ms QT Int : 368 ms P-R-T Axes : 054 -03 032 degrees QTc Int : 477 ms SINUS TACHYCARDIA OTHERWISE NORMAL ECG WHEN COMPARED WITH ECG OF 29-OCT-2017 08:44, NO SIGNIFICANT CHANGE WAS FOUND Confirmed by JENNY VAUGHAN MD ([id number]) on 11/26/2017 8:15:30 PM Referred By: Confirmed By:JENNY VAUGHAN MD
[2017-11-26] MEDS: MELATONIN 5 MG TABLETS PO PRN (22:16)
[2017-11-26] MEDS: THIAMINE HCL 100 MG TABLET (FP) PO SCH (22:16)
[2017-11-26] MEDS: MAG HYDROX/AL HYDROX/SIMETH 30 ML UNIT-DOSE CUP PO PRN (22:17)
[2017-11-27] MEDS: chlordiazePOXIDE HCL 25 MG CAPSULE PO SCH ×3 (05:38→18:07)
[2017-11-27 10:22] LABS: BASO % 1.3 % (0-2.0); HEMATOCRIT 37.9 % (35.4-49); HEMOGLOBIN 13.3 GM/dL (11.7-16.9); LYMPH % 24.4 % (8-40); MCH 33.3 pg (25.7-33.7); MEAN CELL VOLUME 95.1 fl (80-96); MEAN PLT VOLUME 9.5 fl (7.5-11.1); MONO % 14.3 % (3.8-10.2); PLATELET COUNT 39 K/MM3 (134-434); RBC 3.98 M/mm3 (4.00-5.60); RDW 14.2 % (11.9-15.9)
[2017-11-27] MEDS: PRENATAL VITAMINS W/ FOLIC ACID TABLET (FP) PO SCH (10:25)
[2017-11-27] MEDS: MAG HYDROX/AL HYDROX/SIMETH 30 ML UNIT-DOSE CUP PO PRN (10:25)
[2017-11-27] MEDS: NADOLOL 20 MG TABLET (FP) PO SCH (10:26)
--- NOTE | 2017-11-27 12:01 | PN ---
S CIWA - CIWA Score Nausea/Vomitin Muscle Tremors: 3 Anxiety: 3 Agitation: 2 Paroxysmal Sweats: 1-Minimal Palms Moist Orientation: 0-Oriented Tacttile Disturbances: 1-Very Mild Itch/Numbness Auditory Disturbances: 1-Very Mild Visual Disturbances: 0-None Headache: 2-Mild CIWA-Ar Total Score: 16 BHS Progress Note (SOAP) Subjective: alert,irritable,anxiuos,interrupted sleep,tremor Objective: 11/27/17 11:58 Vital Signs Temperature 98.4 F 11/27/17 09:30 Pulse Rate 81 11/27/17 09:30 Respiratory Rate 18 11/27/17 09:30 Blood Pressure 142/84 11/27/17 09:30 O2 Sat by Pulse Oximetry (%) Laboratory Last Values WBC 6.0 K/mm3 (4.0-10.0) 11/27/17 07:40 RBC 3.98 M/mm3 (4.00-5.60) L 11/27/17 07:40 Hgb 13.3 GM/dL (11.7-16.9) 11/27/17 07:40 Hct 37.9 % (35.4-49) 11/27/17 07:40 MCV 95.1 fl (80-96) 11/27/17 07:40 MCH 33.3 pg (25.7-33.7) 11/27/17 07:40 MCHC 35.0 g/dl (32.0-35.9) 11/27/17 07:40 RDW 14.2 % (11.9-15.9) 11/27/17 07:40 Plt Count 39 K/MM3 (134-434) L 11/27/17 07:40 MPV 9.5 fl (7.5-11.1) 11/27/17 07:40 Absolute Neuts (auto) 3.4 K/mm3 (1.5-8.0) 11/27/17 07:40 Neutrophils % 57.0 % (42.8-82.8) 11/27/17 07:40 Lymphocytes % 24.4 % (8-40) 11/27/17 07:40 Monocytes % 14.3 % (3.8-10.2) H 11/27/17 07:40 Eosinophils % 3.0 % (0-4.5) D 11/27/17 07:40 Basophils % 1.3 % (0-2.0) 11/27/17 07:40 Nucleated RBC % 0 % (0-0) 11/27/17 07:40 Sodium 136 mmol/L (136-145) 11/26/17 07:00 Potassium 3.6 mmol/L (3.5-5.1) 11/26/17 07:00 Chloride 99 mmol/L (98-107) 11/26/17 07:00 Carbon Dioxide 28 mmol/L (21-32) D 11/26/17 07:00 Anion Gap 9 MMOL/L (8-16) 11/26/17 07:00 BUN 8 mg/dL (7-18) 11/26/17 07:00 Creatinine 0.5 mg/dL (0.7-1.3) L 11/26/17 07:00 Creat Clearance w eGFR > 60 (>60) 11/26/17 07:00 Random Glucose 117 mg/dL (74-106) H 11/26/17 07:00 Calcium 8.1 mg/dL (8.5-10.1) L 11/26/17 07:00 Total Bilirubin 4.8 mg/dL (0.2-1.0) H 11/26/17 07:00 AST 104 U/L (15-37) H D 11/26/17 07:00 ALT 42 U/L (12-78) D 11/26/17 07:00 Alkaline Phosphatase 131 U/L (45-117) H D 11/26/17 07:00 Total Protein 8.2 g/dl (6.4-8.2) 11/26/17 07:00 Albumin 2.8 g/dl (3.4-5.0) L 11/26/17 07:00 Urine Color Tracey 11/26/17 07:00 Urine Appearance Clear 11/26/17 07:00 Urine pH 7.0 (5.0-8.0) 11/26/17 07:00 Ur Specific [place] 1.023 (1.001-1.035) 11/26/17 07:00 Urine Protein 2+ (NEGATIVE) H 11/26/17 07:00 Urine Glucose (UA) Negative (NEGATIVE) 11/26/17 07:00 Urine Ketones Negative (NEGATIVE) 11/26/17 07:00 Urine Blood Negative (NEGATIVE) 11/26/17 07:00 Urine Nitrite Negative (NEGATIVE) 11/26/17 07:00 Urine Bilirubin 2.0 (<2.0 mg/dL) 11/26/17 07:00 Urine Urobilinogen 4.0 e.u/dl mg/dL (0.2-1.0) 11/26/17 07:00 Ur Leukocyte Esterase Negative (NEGATIVE) 11/26/17 07:00 Urine WBC (Auto) 2 /hpf (3-5) 11/26/17 07:00 Urine RBC (Auto) None /hpf (0-3) 11/26/17 07:00 Ur Epithelial Cells Rare /HPF (FEW) 11/26/17 07:00 Urine Mucus Rare 11/26/17 07:00 RPR Titer Nonreactive (NONREACTIVE) 11/26/17 07:00 Assessment: 11/27/17 11:59 withdrawal symptom Plan: continue detox,platlet count 37k,probably due to cirrhosis,repeat cbc in am
[2017-11-27] MEDS: chlordiazePOXIDE 5 MG CAPSULE PO SCH (22:52)
[2017-11-27] MEDS: THIAMINE HCL 100 MG TABLET (FP) PO SCH (22:52)
[2017-11-28] MEDS: chlordiazePOXIDE 5 MG CAPSULE PO SCH ×3 (06:22→17:16)
[2017-11-28 10:05] LABS: HEMOGLOBIN 12.9 GM/dL (11.7-16.9); MCH 33.5 pg (25.7-33.7); MCHC 34.8 g/dl (32.0-35.9); MEAN CELL VOLUME 96.4 fl (80-96); MEAN PLT VOLUME 9.6 fl (7.5-11.1); PLATELET COUNT 42 K/MM3 (134-434); RBC 3.84 M/mm3 (4.00-5.60); RDW 14.4 % (11.9-15.9); WHITE BLOOD COUNT 5.6 K/mm3 (4.0-10.0)
[2017-11-28] MEDS: NADOLOL 20 MG TABLET (FP) PO SCH (11:22)
[2017-11-28] MEDS: PRENATAL VITAMINS W/ FOLIC ACID TABLET (FP) PO SCH (11:22)
--- NOTE | 2017-11-28 11:30 | PN ---
S Progress Note (SOAP) Subjective: alert,irritable,anxious,interrupted sleep Objective: 11/28/17 11:27 Vital Signs Temperature 97.7 F 11/28/17 10:17 Pulse Rate 90 11/28/17 10:17 Respiratory Rate 18 11/28/17 10:17 Blood Pressure 122/72 11/28/17 10:17 O2 Sat by Pulse Oximetry (%) 11/28/17 11:28 Laboratory Results - last 24 hr 11/28/17 07:00 WBC 5.6 RBC 3.84 L Hgb 12.9 Hct 37.0 MCV 96.4 H MCH 33.5 MCHC 34.8 RDW 14.4 Plt Count 42 L MPV 9.6 Assessment: 11/28/17 11:29 withdrawal symptom Plan: continue detox,discharge in am,patient will follow up with primary care provider upon discharge for thrombocytopenia and medical problem
[2017-11-28] MEDS: chlordiazePOXIDE HCL 10 MG CAPSULE PO SCH (22:15)
[2017-11-28] MEDS: THIAMINE HCL 100 MG TABLET (FP) PO SCH (22:15)
[2017-11-28] MEDS: MELATONIN 5 MG TABLETS PO PRN (22:16)
[2017-11-29] MEDS: chlordiazePOXIDE HCL 10 MG CAPSULE PO SCH (05:31)
[2017-11-29 06:38] VITALS: TEMP 97.9
[2017-11-29 09:29] VITALS: BP 132/72; PULSE 75
--- NOTE | 2017-11-29 14:08 | DS ---
[facility] Detox Discharge Summary Admission Date: 11/25/17 Discharge Date: 11/29/17 - History Present History: Alcohol Dependence Pertinent Past History: Cirrhosis, HTN - Physical Exam Results Vital Signs: Vital Signs Temperature 97.9 F 11/29/17 09:29 Pulse Rate 75 11/29/17 09:29 Respiratory Rate 18 11/29/17 09:29 Blood Pressure 132/72 11/29/17 09:29 O2 Sat by Pulse Oximetry (%) Pertinent Admission Physical Exam Findings: Withdrawal sx Laboratory Last Values WBC 5.6 K/mm3 (4.0-10.0) 11/28/17 07:00 RBC 3.84 M/mm3 (4.00-5.60) L 11/28/17 07:00 Hgb 12.9 GM/dL (11.7-16.9) 11/28/17 07:00 Hct 37.0 % (35.4-49) 11/28/17 07:00 MCV 96.4 fl (80-96) H 11/28/17 07:00 MCH 33.5 pg (25.7-33.7) 11/28/17 07:00 MCHC 34.8 g/dl (32.0-35.9) 11/28/17 07:00 RDW 14.4 % (11.9-15.9) 11/28/17 07:00 Plt Count 42 K/MM3 (134-434) L 11/28/17 07:00 MPV 9.6 fl (7.5-11.1) 11/28/17 07:00 Absolute Neuts (auto) 3.4 K/mm3 (1.5-8.0) 11/27/17 07:40 Neutrophils % 57.0 % (42.8-82.8) 11/27/17 07:40 Lymphocytes % 24.4 % (8-40) 11/27/17 07:40 Monocytes % 14.3 % (3.8-10.2) H 11/27/17 07:40 Eosinophils % 3.0 % (0-4.5) D 11/27/17 07:40 Basophils % 1.3 % (0-2.0) 11/27/17 07:40 Nucleated RBC % 0 % (0-0) 11/27/17 07:40 Sodium 136 mmol/L (136-145) 11/26/17 07:00 Potassium 3.6 mmol/L (3.5-5.1) 11/26/17 07:00 Chloride 99 mmol/L (98-107) 11/26/17 07:00 Carbon Dioxide 28 mmol/L (21-32) D 11/26/17 07:00 Anion Gap 9 MMOL/L (8-16) 11/26/17 07:00 BUN 8 mg/dL (7-18) 11/26/17 07:00 Creatinine 0.5 mg/dL (0.7-1.3) L 11/26/17 07:00 Creat Clearance w eGFR > 60 (>60) 11/26/17 07:00 Random Glucose 117 mg/dL (74-106) H 11/26/17 07:00 Calcium 8.1 mg/dL (8.5-10.1) L 11/26/17 07:00 Total Bilirubin 4.8 mg/dL (0.2-1.0) H 11/26/17 07:00 AST 104 U/L (15-37) H D 11/26/17 07:00 ALT 42 U/L (12-78) D 11/26/17 07:00 Alkaline Phosphatase 131 U/L (45-117) H D 11/26/17 07:00 Total Protein 8.2 g/dl (6.4-8.2) 11/26/17 07:00 Albumin 2.8 g/dl (3.4-5.0) L 11/26/17 07:00 Urine Color Tracey 11/26/17 07:00 Urine Appearance Clear 11/26/17 07:00 Urine pH 7.0 (5.0-8.0) 11/26/17 07:00 Ur Specific [place] 1.023 (1.001-1.035) 11/26/17 07:00 Urine Protein 2+ (NEGATIVE) H 11/26/17 07:00 Urine Glucose (UA) Negative (NEGATIVE) 11/26/17 07:00 Urine Ketones Negative (NEGATIVE) 11/26/17 07:00 Urine Blood Negative (NEGATIVE) 11/26/17 07:00 Urine Nitrite Negative (NEGATIVE) 11/26/17 07:00 Urine Bilirubin 2.0 (<2.0 mg/dL) 11/26/17 07:00 Urine Urobilinogen 4.0 e.u/dl mg/dL (0.2-1.0) 11/26/17 07:00 Ur Leukocyte Esterase Negative (NEGATIVE) 11/26/17 07:00 Urine WBC (Auto) 2 /hpf (3-5) 11/26/17 07:00 Urine RBC (Auto) None /hpf (0-3) 11/26/17 07:00 Ur Epithelial Cells Rare /HPF (FEW) 11/26/17 07:00 Urine Mucus Rare 11/26/17 07:00 RPR Titer Nonreactive (NONREACTIVE) 11/26/17 07:00 Labs noted - Treatment Hospital Course: Detox Protocol Followed, Detoxed Safely, Responded well, Discharged Condition Good - Medication Discharge Medications: Ambulatory Orders B12/Levomefolate Calcium/B-6 [Foltx Tablet] 1 each PO DAILY 08/16/17 Folic Acid - 1 mg PO DAILY 08/16/17 - Diagnosis (1) Alcohol dependence with uncomplicated withdrawal Status: Chronic (2) Alcoholic gastritis Status: Chronic Qualifiers: Chronicity: unspecified Gastritis bleeding: presence of bleeding unspecified Qualified Code(s): K29.20 - Alcoholic gastritis without bleeding (3) HTN (hypertension) Status: Chronic Qualifiers: Hypertension type: essential hypertension Qualified Code(s): I10 - Essential (primary) hypertension (4) Liver cirrhosis, alcoholic Status: Chronic Qualifiers: Ascites presence: unspecified Qualified Code(s): K70.30 - Alcoholic cirrhosis of liver without ascites (5) Thrombocytopenia Status: Chronic - AMA Did Patient Leave Against Medical Advice: No
== END 2017-11-29 09:30 | disposition home or self-care (01) | DRG 775 ==
LOC: YASAS 19:33 → Y6N 21:06
PROVIDERS: ADMIT Surgery; ATTEND Surgery
PROC: HZ2ZZZZ Detoxification Services for Substance Abuse Treatment (ICD-10-PCS; principal; 2017-11-25)
DX: F10.230 Alcohol dependence with withdrawal, uncomplicated (principal); F32.9 Major depressive disorder, single episode, unspecified; I10 Essential (primary) hypertension; K29.20 Alcoholic gastritis without bleeding; K70.30 Alcoholic cirrhosis of liver without ascites; D69.6 Thrombocytopenia, unspecified; E80.5 Crigler-Najjar syndrome; E80.6 Other disorders of bilirubin metabolism; I45.81 Long QT syndrome; D75.89 Other specified diseases of blood and blood-forming organs; E66.9 Obesity, unspecified; Z68.42 Body mass index [BMI] 45.0-49.9, adult
CPT/HCPCS: 36415; 80053; 81003; 81015; 85025; 85027; 86593; 93005; 93010; Q0162

== ENCOUNTER 2018-01-07 16:59 | Inpatient (IN) | payer OTHER ==
[2018-01-07 20:13] VITALS: BMI 43.5
--- NOTE | 2018-01-07 20:26 | HP ---
CIWA Score - CIWA Score Nausea/Vomitin-No Nausea/No Vomiting Muscle Tremors: 4-Moderate,w/Arms Extend Anxiety: 4-Mod. Anxious/Guarded Agitation: 3 Paroxysmal Sweats: No Perspiration Orientation: 0-Oriented Tacttile Disturbances: 0-None Auditory Disturbances: 0-None Visual Disturbances: 0-None Headache: 3-Moderate CIWA-Ar Total Score: 14 Admission ROS S - HPI Chief Complaint: Alcohol withdrawal symptoms Allergies/Adverse Reactions: Allergies Allergy/AdvReac Type Severity Reaction Status Date / Time No Known Allergies Allergy Verified 11/25/17 21:55 History of Present Illness: 27 years old male with a long history of alcohol dependence is seeking admission to detox. Patient has been in detox, last at [facility] and reports 4 months of sobriety. He has medical history of liver cirrhosis, hypertension, jaundice, and depression. Patient appears dehydraed with dry mucous membrane and poor skin turgor. Patient denies suicide attempt and suicidal ideation at this time. Exam Limitations: No Limitations - Ebola screening Have you traveled outside of the country in the last 21 days: No (N) Have you had contact with anyone from an Ebola affected area: No Have you been sick,other than usual withdrawal symptoms: No Do you have a fever: No - Review of Systems Constitutional: Chills, Loss of Appetite, Malaise, Changes in sleep EENT: reports: No Symptoms Reported Respiratory: reports: No Symptoms reported Cardiac: reports: No Symptoms Reported GI: reports: Nausea, Poor Appetite, Poor Fluid Intake, Abdominal cramping : reports: No Symptoms Reported Musculoskeletal: reports: Muscle Weakness Integumentary: reports: Dryness Neuro: reports: Tremors Endocrine: reports: No Symptoms Reported Hematology: reports: No Symptoms Reported Psychiatric: reports: Orientated x3, Anxious, Depressed Other Systems: Reviewed and Negative Patient History - Patient Medical History Hx Anemia: No Hx Asthma: No Hx Chronic Obstructive Pulmonary Disease (COPD): No Hx Cancer: No Hx Cardiac Disorders: No Hx Congestive Heart Failure: No Hx Hypertension: No Hx Hypercholesterolemia: No Hx Pacemaker: No HX Cerebrovascular Accident: No Hx Seizures: No Hx Dementia: No Hx Diabetes: No Hx Gastrointestinal Disorders: No Hx Liver Disease: Yes (Cirrhosis) Hx Genitourinary Disorders: No Hx Sexually Transmitted Disorders: No Hx Renal Disease (ESRD): No Hx Thyroid Disease: No Hx Human Immunodeficiency Virus (HIV): No Hx Hepatitis C: No Hx Depression: Yes Hx Suicide Attempt: No Hx Bipolar Disorder: No Hx Schizophrenia: No - Patient Surgical History Past Surgical History: No - PPD History Documented Results: Negative w/proof Implanted On Prior [facility] Admission?: Yes Date: 07/25/17 Results: 0 MM PPD to be Administered?: No - Reproductive History Patient is a Female of Child Bearing Age (11 -55 yrs old): No (Male) - Smoking Cessation Smoking history: Never smoked Have you smoked in the past 12 months: No Aproximately how many cigarettes per day: 0 Cigars Per Day: 0 Hx Chewing Tobacco Use: No Initiated information on smoking cessation: No - Substance & Tx. History Hx Alcohol Use: Yes Hx Substance Use: No Substance Use Type: Alcohol Hx Substance Use Treatment: Yes ([facility]) - Substances Abused Alcohol Route: Oral Frequency: Daily Amount used: 3 x 24 oz CANS Age of first use: 15 Date of Last Use: 01/07/18 Family Disease History - Family Disease History Family Disease History: Diabetes: Grandparent, Other: Father (ALCOHOLISM, ) Admission Physical Exam BHS - Vital Signs Vital Signs: Vital Signs - 24 hr 01/07/18 20:10 Temperature 98 F Pulse Rate 108 H Respiratory 18 Rate Blood Pressure 160/100 - Physical General Appearance: Yes: Moderate Distress, Intoxicated, Tremorous, Irritable, Anxious HEENTM: Yes: EOMI, Normal ENT Inspection, Normal Voice, Thrush Respiratory: Yes: Lungs Clear, Normal Breath Sounds, No Respiratory Distress Neck: Yes: Supple Breast: Yes: Breast Exam Deferred Cardiology: Yes: Tachycardia Abdominal: Yes: Normal Bowel Sounds Genitourinary: Yes: Within Normal Limits Back: Yes: Normal Inspection Musculoskeletal: Yes: Muscle weakness Extremities: Yes: Tremors Neurological: Yes: Alert, Normal Mood/Affect Integumentary: Yes: Warm Lymphatic: Yes: Within Normal Limits - Diagnostic (1) Dehydration Current Visit: Yes Status: Chronic (2) Alcohol dependence with uncomplicated withdrawal Current Visit: Yes Status: Chronic (3) HTN (hypertension) Current Visit: Yes Status: Chronic Qualifiers: Hypertension type: essential hypertension Qualified Code(s): I10 - Essential (primary) hypertension (4) Jaundice Current Visit: Yes Status: Chronic (5) Liver cirrhosis, alcoholic Current Visit: Yes Status: Chronic Qualifiers: Ascites presence: unspecified Qualified Code(s): K70.30 - Alcoholic cirrhosis of liver without ascites (6) Depression Current Visit: Yes Status: Suspected Qualifiers: Depression Type: unspecified Qualified Code(s): F32.9 - Major depressive disorder, single episode, unspecified Cleared for Admission [facility] - Detox or Rehab [facility] Level of Care: Medically Managed Detox Regimen/Protocol: Librium S Breath Alcohol Content Breath Alcohol Content: 0.220 Urine Drug Screen - Results Drug Screen Negative: Yes
[2018-01-07] MEDS ORDERED: IBUPROFEN 400 MG TABLET (FP) PO PRN (20:37)
[2018-01-07] MEDS ORDERED: LOPERAMIDE HCL 2 MG CAPSULE PO PRN (20:37)
[2018-01-07] MEDS ORDERED: chlordiazePOXIDE HCL 25 MG CAPSULE PO PRN (20:37)
[2018-01-07] MEDS ORDERED: P-EPHED 60MG/TRIPROLIDI 2.5MG TABLET PO PRN (20:37)
[2018-01-07] MEDS ORDERED: guaiFENesin/D-METHORPHAN HB 10 ML UNIT-DOSE CUPS PO PRN (20:37)
[2018-01-07] MEDS ORDERED: MAGNESIUM CITRATE 300 ML BOTTLE PO PRN (20:37)
[2018-01-07] MEDS ORDERED: MENTHOL/PHENOL 1 EACH UD MM PRN (20:37)
[2018-01-07] MEDS ORDERED: MAGNESIUM HYDROX 2400MG/30ML ORAL SUSPENSION 30 ML CUP PO PRN (20:37)
[2018-01-07] MEDS ORDERED: ACETAMINOPHEN 325 MG TABLET (FP) PO PRN (20:37)
[2018-01-07] MEDS ORDERED: MAG HYDROX/AL HYDROX/SIMETH 30 ML UNIT-DOSE CUP PO PRN (20:37)
[2018-01-07] MEDS: THIAMINE HCL 100 MG TABLET (FP) PO SCH (22:16)
[2018-01-07] MEDS: chlordiazePOXIDE HCL 25 MG CAPSULE PO SCH (22:16)
[2018-01-07 23:10] LABS: URINE APPEARANCE CLEAR; URINE BILIRUBIN NEGATIVE (<2.0 mg/dL); URINE COLOR AMBER; URINE GLUCOSE (UA) NEGATIVE (NEGATIVE); URINE KETONE NEGATIVE (NEGATIVE); URINE LEUK ESTERASE NEGATIVE (NEGATIVE); URINE NITRITE NEGATIVE (NEGATIVE); URINE UROBILINOGEN NEGATIVE mg/dL (0.2-1.0)
[2018-01-07 23:11] LABS: URINE PROTEIN 1+ (NEGATIVE)
[2018-01-07 23:13] LABS: EPI CELLS RARE /HPF (FEW); URINE MUCUS RARE
[2018-01-08] MEDS: chlordiazePOXIDE HCL 25 MG CAPSULE PO SCH ×4 (05:27→22:10)
[2018-01-08] MEDS ORDERED: PATIENT'S OWN MEDICATION (NON-FORMULARY) (B12/Levomefolate Calcium/B-6 [Foltx Tablet] 1 EA PO SCH (10:00)
[2018-01-08 10:06] LABS: HEMOGLOBIN 11.8 GM/dL (11.7-16.9); MCH 32.8 pg (25.7-33.7); MCHC 34.8 g/dl (32.0-35.9); MEAN CELL VOLUME 94.4 fl (80-96); MEAN PLT VOLUME 8.7 fl (7.5-11.1); RDW 15.4 % (11.9-15.9); WHITE BLOOD COUNT 3.4 K/mm3 (4.0-10.0)
[2018-01-08 10:11] LABS: PLATELET COUNT 33 K/MM3 (134-434)
[2018-01-08 10:27] LABS: ALBUMIN 2.5 g/dl (3.4-5.0); ALK PHOS 155 U/L (45-117); ANION GAP 8 MMOL/L (8-16); BILIRUBIN,TOTAL 4.7 mg/dL (0.2-1); BLOOD UREA NITROGEN 3 mg/dL (7-18); CALCIUM 7.6 mg/dL (8.5-10.1); CHLORIDE 103 mmol/L (98-107); CO2 28 mmol/L (21-32); CREATININE 0.4 mg/dL (0.55-1.3); GLUCOSE,RANDOM 112 mg/dL (74-106); POTASSIUM 3.3 mmol/L (3.5-5.1); SGOT/AST 119 U/L (15-37); SGPT/ALT 41 U/L (13-61); SODIUM 138 mmol/L (136-145); TOT PROT 7.1 g/dl (6.4-8.2)
[2018-01-08] MEDS: PRENATAL VITAMINS W/ FOLIC ACID TABLET (FP) PO SCH (10:50)
[2018-01-08] MEDS: FOLIC ACID 1 MG TABLET (FP) PO SCH (10:50)
--- NOTE | 2018-01-08 12:06 | PN ---
S CIWA - CIWA Score Nausea/Vomitin-Mild Nausea/No Vomiting Muscle Tremors: 3 Anxiety: 4-Mod. Anxious/Guarded Agitation: 2 Paroxysmal Sweats: 1-Minimal Palms Moist Orientation: 0-Oriented Tacttile Disturbances: 0-None Auditory Disturbances: 0-None Visual Disturbances: 0-None Headache: 1-Very Mild CIWA-Ar Total Score: 12 BHS Progress Note (SOAP) Subjective: nausea tremor sweat restlessness headache reported had fatty liver diagnosed early this year, currently no treatment Objective: 01/08/18 12:08 Vital Signs Temperature 98.4 F 01/08/18 09:18 Pulse Rate 97 H 01/08/18 09:18 Respiratory Rate 20 01/08/18 09:18 Blood Pressure 151/86 01/08/18 09:18 O2 Sat by Pulse Oximetry (%) Laboratory Last Values WBC 3.4 K/mm3 (4.0-10.0) L 01/08/18 07:00 RBC 3.60 M/mm3 (4.00-5.60) L 01/08/18 07:00 Hgb 11.8 GM/dL (11.7-16.9) 01/08/18 07:00 Hct 34.0 % (35.4-49) L 01/08/18 07:00 MCV 94.4 fl (80-96) 01/08/18 07:00 MCH 32.8 pg (25.7-33.7) 01/08/18 07:00 MCHC 34.8 g/dl (32.0-35.9) 01/08/18 07:00 RDW 15.4 % (11.9-15.9) 01/08/18 07:00 Plt Count 33 K/MM3 (134-434) L* D 01/08/18 07:00 MPV 8.7 fl (7.5-11.1) 01/08/18 07:00 Sodium 138 mmol/L (136-145) 01/08/18 07:00 Potassium 3.3 mmol/L (3.5-5.1) L 01/08/18 07:00 Chloride 103 mmol/L (98-107) 01/08/18 07:00 Carbon Dioxide 28 mmol/L (21-32) 01/08/18 07:00 Anion Gap 8 MMOL/L (8-16) 01/08/18 07:00 BUN 3 mg/dL (7-18) L 01/08/18 07:00 Creatinine 0.4 mg/dL (0.55-1.3) L 01/08/18 07:00 Creat Clearance w eGFR > 60 (>60) 01/08/18 07:00 Random Glucose 112 mg/dL (74-106) H 01/08/18 07:00 Calcium 7.6 mg/dL (8.5-10.1) L 01/08/18 07:00 Total Bilirubin 4.7 mg/dL (0.2-1) H 01/08/18 07:00 AST 119 U/L (15-37) H 01/08/18 07:00 ALT 41 U/L (13-61) 01/08/18 07:00 Alkaline Phosphatase 155 U/L (45-117) H 01/08/18 07:00 Total Protein 7.1 g/dl (6.4-8.2) 01/08/18 07:00 Albumin 2.5 g/dl (3.4-5.0) L 01/08/18 07:00 Urine Color Tracey 01/07/18 20:55 Urine Appearance Clear 01/07/18 20:55 Urine pH 6.0 (5.0-8.0) 01/07/18 20:55 Ur Specific [place] 1.006 (1.001-1.035) 01/07/18 20:55 Urine Protein 1+ (NEGATIVE) H 01/07/18 20:55 Urine Glucose (UA) Negative (NEGATIVE) 01/07/18 20:55 Urine Ketones Negative (NEGATIVE) 01/07/18 20:55 Urine Blood 1+ (NEGATIVE) H 01/07/18 20:55 Urine Nitrite Negative (NEGATIVE) 01/07/18 20:55 Urine Bilirubin Negative (<2.0 mg/dL) 01/07/18 20:55 Urine Urobilinogen Negative mg/dL (0.2-1.0) 01/07/18 20:55 Ur Leukocyte Esterase Negative (NEGATIVE) 01/07/18 20:55 Urine WBC (Auto) <1 /hpf (3-5) 01/07/18 20:55 Urine RBC (Auto) <1 /hpf (0-3) 01/07/18 20:55 Ur Epithelial Cells Rare /HPF (FEW) 01/07/18 20:55 Urine Mucus Rare 01/07/18 20:55 RPR Titer Nonreactive (NONREACTIVE) 01/08/18 07:00 lab noted K+ supplement Assessment: 01/08/18 12:12 withdrawal sx fatty liver / scared liver hypokalemia Plan: continue detox K+ supplement repeat K+ level discontinue tylenal and motrin begin sucraft and zantac encourage weight loss dietary referraal
[2018-01-08] MEDS ORDERED: POTASSIUM CHLORIDE TABS 10 MEQ TABLET.ER (FP) PO SCH (12:15)
[2018-01-08] MEDS ORDERED: ONDANSETRON *ODT* 4 MG TABLET SL ONE (12:50)
[2018-01-08] MEDS: amLODIPine BESYLATE 10 MG TABLET (FP) PO SCH (13:09)
[2018-01-08] MEDS: RANITIDINE HCL 150 MG TABLET (FP) PO SCH ×2 (13:09→22:10)
--- NOTE | 2018-01-08 13:14 | CONSULT ---
[facility] Psychiatric Consult - Data Date of interview: 01/08/18 Admission source: [facility] Identifying data: Patient is a 27 year old male, father of three, domiciled and currently employed. This is one of multiple admissions for patient. Patient admitted to for alcohol dependence. Substance Abuse History: Smoking Cessation. Smoking history: Never smoked. Have you smoked in the past 12 months: No. Aproximately how many cigarettes per day: 0. Cigars Per Day: 0. Hx Chewing Tobacco Use: No. Initiated information on smoking cessation: No. - Substance & Tx. History. Hx Alcohol Use: Yes. Hx Substance Use: No. Substance Use Type: Alcohol. Hx Substance Use Treatment: Yes ([facility], [facility]). - Substances Abused. Alcohol. Route: Oral. Frequency: Daily. Amount used: 3 x 24 oz CANS. Age of first use: 15. Date of Last Use: 01/07/18 Medical History: GERD,cirrhosis of the liver,gastritis and hypertension. Psychiatric History: Patient denies h/o psychiatric hospitalization, outpatient care, and suicide attempt. Physical/Sexual Abuse/Trauma History: denies. Mental Status Exam - Mental Status Exam Alert and Oriented to: Time, Place, Person Cognitive Function: Good Patient Appearance: Well Groomed Mood: Euthymic Affect: Appropriate Patient Behavior: Talkative, Appropriate Speech Pattern: Clear, Appropriate Voice Loudness: Normal Thought Process: Intact, Goal Oriented Thought Disorder: Not Present Hallucinations: Denies Suicidal Ideation: Denies Homicidal Ideation: Denies Insight/Judgement: Poor Sleep: Fair Appetite: Fair Muscle strength/Tone: Normal Gait/Station: Normal Psychiatric Findings - Problem List ([place] 1, 2,3) (1) Alcohol dependence with uncomplicated withdrawal Current Visit: Yes Status: Acute - Initial Treatment Plan Initial Treatment Plan: Psychoeducation provided. Detoxification in progress. Observation.
[2018-01-08] MEDS ORDERED: POTASSIUM CHLORIDE ORAL LIQUID 20 MEQ/15 ML PO ONE (14:00)
[2018-01-08] MEDS ORDERED: SUCRALFATE 1 GM TABLET (FP) PO SCH (14:00)
[2018-01-08] MEDS: SUCRALFATE 1 GM/10 ML UNIT DOSE CUPS PO SCH ×2 (15:26→22:10)
[2018-01-08] MEDS: THIAMINE HCL 100 MG TABLET (FP) PO SCH (22:10)
[2018-01-08] MEDS: MELATONIN 5 MG TABLETS PO PRN (22:12)
--- NOTE | 2018-01-08 22:19 | EKG ---
Test Reason : Blood Pressure : / mmHG Vent. Rate : 100 BPM Atrial Rate : 100 BPM P-R Int : 112 ms QRS Dur : 088 ms QT Int : 364 ms P-R-T Axes : 052 000 033 degrees QTc Int : 469 ms NORMAL SINUS RHYTHM NORMAL ECG WHEN COMPARED WITH ECG OF 25-NOV-2017 22:15, NO SIGNIFICANT CHANGE WAS FOUND Confirmed by EUGENIO GEIGER MD ([id number]) on 01/08/2018 10:18:54 PM Referred By: Confirmed By:EUGENIO GEIGER MD
[2018-01-09] MEDS: chlordiazePOXIDE HCL 25 MG CAPSULE PO SCH ×3 (06:12→17:34)
[2018-01-09] MEDS: SUCRALFATE 1 GM/10 ML UNIT DOSE CUPS PO SCH ×3 (06:12→22:11)
[2018-01-09] MEDS: PRENATAL VITAMINS W/ FOLIC ACID TABLET (FP) PO SCH (10:14)
[2018-01-09] MEDS: RANITIDINE HCL 150 MG TABLET (FP) PO SCH ×2 (10:14→22:12)
[2018-01-09] MEDS: amLODIPine BESYLATE 10 MG TABLET (FP) PO SCH (10:14)
[2018-01-09] MEDS: FOLIC ACID 1 MG TABLET (FP) PO SCH (10:14)
--- NOTE | 2018-01-09 12:23 | PN ---
S CIWA - CIWA Score Nausea/Vomitin-Mild Nausea/No Vomiting Muscle Tremors: 2 Anxiety: 2 Agitation: 1-Slight > Activity Paroxysmal Sweats: No Perspiration Orientation: 0-Oriented Tacttile Disturbances: 1-Very Mild Itch/Numbness Auditory Disturbances: 0-None Visual Disturbances: 0-None Headache: 0-None Present CIWA-Ar Total Score: 7 BHS Progress Note (SOAP) Subjective: PATIENT C/O SHAKES, ANXIETY, PACING IN HALLWAY Objective: 01/09/18 12:19 Vital Signs Temperature 98.6 F 01/09/18 09:42 Pulse Rate 108 H 01/09/18 09:42 Respiratory Rate 20 01/09/18 09:42 Blood Pressure 145/79 01/09/18 09:42 O2 Sat by Pulse Oximetry (%) Laboratory Tests 01/07/18 01/08/18 01/08/18 20:55 07:00 07:00 WBC 3.4 L RBC 3.60 L Hgb 11.8 Hct 34.0 L MCV 94.4 MCH 32.8 MCHC 34.8 RDW 15.4 Plt Count 33 L* D MPV 8.7 Sodium 138 Potassium 3.3 L Chloride 103 Carbon Dioxide 28 Anion Gap 8 BUN 3 L Creatinine 0.4 L Creat Clearance w eGFR > 60 Random Glucose 112 H Calcium 7.6 L Total Bilirubin 4.7 H AST 119 H ALT 41 Alkaline Phosphatase 155 H Total Protein 7.1 Albumin 2.5 L Urine Color Tracey Urine Appearance Clear Urine pH 6.0 Ur Specific [place] 1.006 Urine Protein 1+ H Urine Glucose (UA) Negative Urine Ketones Negative Urine Blood 1+ H Urine Nitrite Negative Urine Bilirubin Negative Urine Urobilinogen Negative Ur Leukocyte Esterase Negative Urine WBC (Auto) <1 Urine RBC (Auto) <1 Ur Epithelial Cells Rare Urine Mucus Rare RPR Titer 01/08/18 01/09/18 07:00 07:00 WBC RBC Hgb Hct MCV MCH MCHC RDW Plt Count MPV Sodium Potassium 3.5 Chloride Carbon Dioxide Anion Gap BUN Creatinine Creat Clearance w eGFR Random Glucose Calcium Total Bilirubin AST ALT Alkaline Phosphatase Total Protein Albumin Urine Color Urine Appearance Urine pH Ur Specific [place] Urine Protein Urine Glucose (UA) Urine Ketones Urine Blood Urine Nitrite Urine Bilirubin Urine Urobilinogen Ur Leukocyte Esterase Urine WBC (Auto) Urine RBC (Auto) Ur Epithelial Cells Urine Mucus RPR Titer Nonreactive PE: PATIENT ALERT AND ORIENTED X 3 SKIN WARM AND DRY AMB AD SARAH EXT +TREMORS PSYCH ANXIOUS, PACING IN HALLWAY Assessment: 01/09/18 12:21 WITHDRAWAL SYNDROME THROMBOCYTOPENIA 01/09/18 12:22 Plan: CONTINUE DETOX ORDERED ENCOURAGE ORAL FLUIDS PLT COUNT AT BASELINE WHEN COMPARED TO PREVIOUS ADMISSIONS AND LIKELY DUE TO CIRRHOSIS OF LIVER PATIENT TO HAVE CBC REPEATED IN AM PATIENT INFORMED TO FOLLOW UP WITH [facility] UPON D/C
[2018-01-09] MEDS: chlordiazePOXIDE 5 MG CAPSULE PO SCH (22:12)
[2018-01-09] MEDS: THIAMINE HCL 100 MG TABLET (FP) PO SCH (22:12)
[2018-01-09] MEDS: MELATONIN 5 MG TABLETS PO PRN (22:13)
[2018-01-10] MEDS: chlordiazePOXIDE 5 MG CAPSULE PO SCH ×2 (05:28→10:07)
[2018-01-10] MEDS: SUCRALFATE 1 GM/10 ML UNIT DOSE CUPS PO SCH (05:28)
[2018-01-10] MEDS: PRENATAL VITAMINS W/ FOLIC ACID TABLET (FP) PO SCH (10:06)
[2018-01-10] MEDS: FOLIC ACID 1 MG TABLET (FP) PO SCH (10:06)
[2018-01-10] MEDS: RANITIDINE HCL 150 MG TABLET (FP) PO SCH (10:06)
[2018-01-10] MEDS: amLODIPine BESYLATE 10 MG TABLET (FP) PO SCH (10:06)
[2018-01-10 10:12] LABS: HEMATOCRIT 35.2 % (35.4-49); HEMOGLOBIN 12.1 GM/dL (11.7-16.9); MCH 33.1 pg (25.7-33.7); MCHC 34.5 g/dl (32.0-35.9); MEAN PLT VOLUME 8.7 fl (7.5-11.1); PLATELET COUNT 37 K/MM3 (134-434); RBC 3.67 M/mm3 (4.00-5.60); RDW 15.9 % (11.9-15.9); WHITE BLOOD COUNT 4.1 K/mm3 (4.0-10.0)
[2018-01-10 10:32] VITALS: BP 143/89; PULSE 93; TEMP 97.9
--- NOTE | 2018-01-10 11:31 | DS ---
[facility] Detox Discharge Summary Admission Date: 01/07/18 Discharge Date: 01/10/18 - History Present History: Alcohol Dependence - Physical Exam Results Vital Signs: Vital Signs Temperature 97.9 F 01/10/18 10:31 Pulse Rate 93 H 01/10/18 10:31 Respiratory Rate 18 01/10/18 10:31 Blood Pressure 143/89 01/10/18 10:31 O2 Sat by Pulse Oximetry (%) Pertinent Admission Physical Exam Findings: PATIENT TOLERATED DETOX WELL. REQUESTED EARLY DISCHARGE. PATIENT CLINICALLY STABLE. DENIES SI/HI. PATIENT ALERT AND ORIENTED X 3, SKIN WARM AND DRY, AMB AD SARAH, EXT FULL, NO TREMORS. PLATELET COUNT AT BASELINE FOR PATIENT AT 37. PATIENT ENCOURAGED TO FOLLOW UP WITH [facility] AND TO ATTEND GROUP MEETINGS TO PREVENT RELAPSE. DISCHARGE INSTRUCTIONS PROVIDED TO PATIENT BY STAFF. Laboratory Tests 01/07/18 01/08/18 01/08/18 20:55 07:00 07:00 WBC 3.4 L RBC 3.60 L Hgb 11.8 Hct 34.0 L MCV 94.4 MCH 32.8 MCHC 34.8 RDW 15.4 Plt Count 33 L* D MPV 8.7 Sodium 138 Potassium 3.3 L Chloride 103 Carbon Dioxide 28 Anion Gap 8 BUN 3 L Creatinine 0.4 L Creat Clearance w eGFR > 60 Random Glucose 112 H Calcium 7.6 L Total Bilirubin 4.7 H AST 119 H ALT 41 Alkaline Phosphatase 155 H Total Protein 7.1 Albumin 2.5 L Urine Color Tracey Urine Appearance Clear Urine pH 6.0 Ur Specific [place] 1.006 Urine Protein 1+ H Urine Glucose (UA) Negative Urine Ketones Negative Urine Blood 1+ H Urine Nitrite Negative Urine Bilirubin Negative Urine Urobilinogen Negative Ur Leukocyte Esterase Negative Urine WBC (Auto) <1 Urine RBC (Auto) <1 Ur Epithelial Cells Rare Urine Mucus Rare RPR Titer 01/08/18 01/09/18 01/10/18 07:00 07:00 08:00 WBC 4.1 RBC 3.67 L Hgb 12.1 Hct 35.2 L MCV 96.0 MCH 33.1 MCHC 34.5 RDW 15.9 Plt Count 37 L MPV 8.7 Sodium Potassium 3.5 Chloride Carbon Dioxide Anion Gap BUN Creatinine Creat Clearance w eGFR Random Glucose Calcium Total Bilirubin AST ALT Alkaline Phosphatase Total Protein Albumin Urine Color Urine Appearance Urine pH Ur Specific [place] Urine Protein Urine Glucose (UA) Urine Ketones Urine Blood Urine Nitrite Urine Bilirubin Urine Urobilinogen Ur Leukocyte Esterase Urine WBC (Auto) Urine RBC (Auto) Ur Epithelial Cells Urine Mucus RPR Titer Nonreactive - Treatment Hospital Course: Detox Protocol Followed, Detoxed Safely, Responded well, Discharged Condition Good - Medication Discharge Medications: Ambulatory Orders B12/Levomefolate Calcium/B-6 [Foltx Tablet] 1 each PO DAILY 08/16/17 Folic Acid - 1 mg PO DAILY 08/16/17 - Diagnosis (1) Alcohol dependence with uncomplicated withdrawal Current Visit: Yes Status: Resolved (2) Thrombocytopenia Current Visit: No Status: Chronic - AMA Did Patient Leave Against Medical Advice: No
[2018-01-10] MEDS ORDERED: chlordiazePOXIDE HCL 10 MG CAPSULE PO SCH (23:00)
== END 2018-01-10 11:20 | disposition home or self-care (01) | DRG 775 ==
LOC: YASAS 16:59 → Y6N 20:02
PROC: HZ2ZZZZ Detoxification Services for Substance Abuse Treatment (ICD-10-PCS; principal; 2018-01-07)
DX: F10.230 Alcohol dependence with withdrawal, uncomplicated (principal); F32.9 Major depressive disorder, single episode, unspecified; I10 Essential (primary) hypertension; D69.6 Thrombocytopenia, unspecified; E86.0 Dehydration; E87.6 Hypokalemia; K70.30 Alcoholic cirrhosis of liver without ascites; R17 Unspecified jaundice
CPT/HCPCS: 36415; 80053; 81003; 81015; 84132; 85027; 86593; 93005; 93010; Q0162

== ENCOUNTER 2018-02-10 18:11 | Inpatient (IN) | payer OTHER ==
[2018-02-10 19:21] VITALS: BMI 43.9
--- NOTE | 2018-02-10 19:47 | HP ---
CIWA Score - CIWA Score Nausea/Vomitin-Mild Nausea/No Vomiting Muscle Tremors: 4-Moderate,w/Arms Extend Anxiety: 1-Mildly Anxious Agitation: 0-Normal Activity Paroxysmal Sweats: No Perspiration Orientation: 0-Oriented Tacttile Disturbances: 0-None Auditory Disturbances: 0-None Visual Disturbances: 0-None Headache: 0-None Present CIWA-Ar Total Score: 6 Admission ROS BHS - HPI Allergies/Adverse Reactions: Allergies Allergy/AdvReac Type Severity Reaction Status Date / Time No Known Allergies Allergy Verified 01/07/18 21:22 History of Present Illness: patient here requesting detox from etoh use , reports relapse 1 week ago , 3 cans x 24 oz beer /day , reports tremors and anxiety if not drinking ,de neis seizures, blackouts first age of use 15 , sober since 1 mo ago , relapsed , longest sobriety x 6 mo w/ AA meetings . huan 0.103 utox + bzo reports took from a friend , tried to detox on his own and could not do it , was scared and decided to seek help at this facility . PMhx : denies pshx : denies psych : denies tobacco : denies Shx : lives w/ mother and siblings 3 children - w/ mother in [place] - Ebola screening Have you traveled outside of the country in the last 21 days: No Have you had contact with anyone from an Ebola affected area: No Have you been sick,other than usual withdrawal symptoms: No Do you have a fever: No - Review of Systems Constitutional: See HPI EENT: reports: No Symptoms Reported Respiratory: reports: No Symptoms reported Cardiac: reports: No Symptoms Reported GI: reports: No Symptoms Reported : reports: No Symptoms Reported Musculoskeletal: reports: No Symptoms Reported Integumentary: reports: No Symptoms Reported Neuro: reports: No Symptoms reported Endocrine: reports: No Symptoms Reported Hematology: reports: No Symptoms Reported Psychiatric: reports: No Sypmtoms Reported Patient History - Patient Medical History Hx Anemia: No Hx Asthma: No Hx Chronic Obstructive Pulmonary Disease (COPD): No Hx Cancer: No Hx Cardiac Disorders: No Hx Congestive Heart Failure: No Hx Hypertension: No Hx Hypercholesterolemia: No Hx Pacemaker: No HX Cerebrovascular Accident: No Hx Seizures: No Hx Dementia: No Hx Diabetes: No Hx Gastrointestinal Disorders: No Hx Liver Disease: Yes (Cirrhosis) Hx Genitourinary Disorders: No Hx Sexually Transmitted Disorders: No Hx Renal Disease (ESRD): No Hx Thyroid Disease: No Hx Human Immunodeficiency Virus (HIV): No Hx Hepatitis C: No Hx Depression: Yes Hx Suicide Attempt: No Hx Bipolar Disorder: No Hx Schizophrenia: No - Patient Surgical History Past Surgical History: No Hx Neurologic Surgery: No Hx Cataract Extraction: No Hx Cardiac Surgery: No Hx Lung Surgery: No Hx Breast Surgery: No Hx Breast Biopsy: No Hx Abdominal Surgery: No Hx Appendectomy: No Hx Cholecystectomy: No Hx Genitourinary Surgery: No Hx Section: No Hx Orthopedic Surgery: No Hx Hysterectomy: No Anesthesia Reaction: No - PPD History Date: 07/25/17 Results: 0 MM - Smoking Cessation Smoking history: Never smoked Have you smoked in the past 12 months: No Aproximately how many cigarettes per day: 0 Cigars Per Day: 0 Hx Chewing Tobacco Use: No Family Disease History - Family Disease History Family Disease History: Diabetes: Grandparent, Other: Father (ALCOHOLISM, ) Admission Physical Exam [facility] - Vital Signs Vital Signs: Vital Signs - 24 hr 02/10/18 19:18 Temperature 97.7 F Pulse Rate 95 H Respiratory 18 Rate Blood Pressure 140/91 - Physical General Appearance: Yes: Nourished, Appropriately Dressed, Mild Distress, Alcohol on Breath, Intoxicated HEENTM: Yes: Hearing grossly Normal, Normocephalic, Normal Voice Respiratory: Yes: Chest Non-Tender, Lungs Clear, Normal Breath Sounds, No Respiratory Distress, No Accessory Muscle Use Neck: Yes: No masses,lesions,Nodules, Trachea in good position Cardiology: Yes: Regular Rhythm, Regular Rate, Tachycardia Abdominal: Yes: Normal Bowel Sounds, Non Tender, Flat, Soft, Protuberent Genitourinary: Yes: Within Normal Limits Back: Yes: Normal Inspection Musculoskeletal: Yes: full range of Motion, Gait Steady, Pelvis Stable Extremities: Yes: Normal Capillary Refill, Normal Inspection, Normal Range of Motion, Non-Tender Neurological: Yes: Fully Oriented, Alert, Motor Strength 5/5, Normal Mood/Affect , Normal Response Integumentary: Yes: Normal Color, Dry, Warm, Clammy Lymphatic: Yes: Within Normal Limits - Diagnostic (1) Alcohol withdrawal Current Visit: No Status: Acute Qualifiers: Complication of substance-induced condition: uncomplicated Qualified Code(s ): F10.230 - Alcohol dependence with withdrawal, uncomplicated BHS Breath Alcohol Content Breath Alcohol Content: 0.103 Urine Drug Screen - Results Drug Screen Negative: No Urine Drug Screen Results: BZO-Benzodiazepines
[2018-02-10] MEDS ORDERED: ACETAMINOPHEN 325 MG TABLET (FP) PO PRN (19:48)
[2018-02-10] MEDS ORDERED: MENTHOL/PHENOL 1 EACH UD MM PRN (19:48)
[2018-02-10] MEDS ORDERED: P-EPHED 60MG/TRIPROLIDI 2.5MG TABLET PO PRN (19:48)
[2018-02-10] MEDS ORDERED: MAG HYDROX/AL HYDROX/SIMETH 30 ML UNIT-DOSE CUP PO PRN (19:48)
[2018-02-10] MEDS ORDERED: guaiFENesin/D-METHORPHAN HB 10 ML UNIT-DOSE CUPS PO PRN (19:48)
[2018-02-10] MEDS ORDERED: chlordiazePOXIDE HCL 25 MG CAPSULE PO PRN (19:48)
[2018-02-10] MEDS ORDERED: MAGNESIUM HYDROX 2400MG/30ML ORAL SUSPENSION 30 ML CUP PO PRN (19:48)
[2018-02-10] MEDS ORDERED: MAGNESIUM CITRATE 300 ML BOTTLE PO PRN (19:48)
[2018-02-10] MEDS ORDERED: IBUPROFEN 400 MG TABLET (FP) PO PRN (19:48)
[2018-02-10] MEDS ORDERED: THIAMINE HCL 100 MG TABLET (FP) PO SCH (22:00)
[2018-02-10] MEDS ORDERED: MELATONIN 5 MG TABLETS PO PRN (22:00)
[2018-02-10] MEDS ORDERED: chlordiazePOXIDE HCL 25 MG CAPSULE PO SCH (23:00)
[2018-02-10 23:20] VITALS: BP 127/68; PULSE 100; TEMP 97.3
[2018-02-11 01:05] LABS: URINE APPEARANCE CLEAR; URINE BILIRUBIN NEGATIVE (<2.0 mg/dL); URINE COLOR AMBER; URINE GLUCOSE (UA) NEGATIVE (NEGATIVE); URINE KETONE NEGATIVE (NEGATIVE); URINE LEUK ESTERASE NEGATIVE (NEGATIVE); URINE NITRITE NEGATIVE (NEGATIVE); URINE PROTEIN NEGATIVE (NEGATIVE); URINE UROBILINOGEN NEGATIVE mg/dL (0.2-1.0)
--- NOTE | 2018-02-11 03:41 | DS ---
[facility] Detox Discharge Summary Admission Date: 02/10/18 Discharge Date: 02/11/18 - History Additional Comments: PATIENT STATES THAT HE IS LEAVING AGAINST MEDICAL ADVICE TO TAKE CARE OF IMPORTANT PERSONAL ISSUE Pertinent Past History: ALCOHOL DEPENDENCE , HYPERTENSION, LIVER CIRRHOSIS, DEHYDRATION - Physical Exam Results Vital Signs: Vital Signs Temperature 97.3 F L 02/10/18 23:20 Pulse Rate 100 H 02/10/18 23:20 Respiratory Rate 18 02/11/18 00:30 Blood Pressure 127/68 02/10/18 23:20 O2 Sat by Pulse Oximetry (%) Laboratory Last Values Urine Color Tracey 02/10/18 23:00 Urine Appearance Clear 02/10/18 23:00 Urine pH 6.0 (5.0-8.0) 02/10/18 23:00 Ur Specific [place] 1.004 (1.010-1.035) L 02/10/18 23:00 Urine Protein Negative (NEGATIVE) 02/10/18 23:00 Urine Glucose (UA) Negative (NEGATIVE) 02/10/18 23:00 Urine Ketones Negative (NEGATIVE) 02/10/18 23:00 Urine Blood Negative (NEGATIVE) 02/10/18 23:00 Urine Nitrite Negative (NEGATIVE) 02/10/18 23:00 Urine Bilirubin Negative (<2.0 mg/dL) 02/10/18 23:00 Urine Urobilinogen Negative mg/dL (0.2-1.0) 02/10/18 23:00 Ur Leukocyte Esterase Negative (NEGATIVE) 02/10/18 23:00 Pertinent Admission Physical Exam Findings: ALCOHOL WITHDRAWAL SYMPTOMS - Medication Discharge Medications: Ambulatory Orders NK [No Known Home Medication] 02/10/18 - Diagnosis (1) Prolonged Q-T interval on ECG Status: Acute (2) Alcoholic gastritis Status: Chronic Qualifiers: Chronicity: unspecified Gastritis bleeding: presence of bleeding unspecified Qualified Code(s): K29.20 - Alcoholic gastritis without bleeding (3) HTN (hypertension) Status: Chronic Qualifiers: Hypertension type: essential hypertension Qualified Code(s): I10 - Essential (primary) hypertension (4) Jaundice Status: Chronic (5) Liver cirrhosis, alcoholic Status: Chronic Qualifiers: Ascites presence: unspecified Qualified Code(s): K70.30 - Alcoholic cirrhosis of liver without ascites (6) Thrombocytopenia Status: Chronic (7) Depression Status: Suspected Qualifiers: Depression Type: unspecified Qualified Code(s): F32.9 - Major depressive disorder, single episode, unspecified (8) Psychiatric disorder Status: Suspected (9) Alcohol dependence with uncomplicated withdrawal Status: Resolved - AMA Did Patient Leave Against Medical Advice: Yes
[2018-02-11] MEDS ORDERED: PRENATAL VITAMINS W/ FOLIC ACID TABLET (FP) PO SCH (10:00)
[2018-02-11] MEDS ORDERED: chlordiazePOXIDE HCL 25 MG CAPSULE PO SCH (23:00)
[2018-02-12] MEDS ORDERED: chlordiazePOXIDE 5 MG CAPSULE PO SCH (23:00)
[2018-02-13] MEDS ORDERED: chlordiazePOXIDE HCL 10 MG CAPSULE PO SCH (23:00)
== END 2018-02-11 04:20 | disposition left against medical advice (07) | DRG 770 ==
LOC: YASAS 18:11 → Y3N 20:21
PROC: HZ2ZZZZ Detoxification Services for Substance Abuse Treatment (ICD-10-PCS; principal; 2018-02-10)
DX: F10.230 Alcohol dependence with withdrawal, uncomplicated (principal); F19.24 Other psychoactive substance dependence with psychoactive substance-induced mood disorder; F32.9 Major depressive disorder, single episode, unspecified; I10 Essential (primary) hypertension; I45.81 Long QT syndrome; K70.30 Alcoholic cirrhosis of liver without ascites; K29.20 Alcoholic gastritis without bleeding; R17 Unspecified jaundice; D69.6 Thrombocytopenia, unspecified; R00.0 Tachycardia, unspecified
CPT/HCPCS: 81003

== ENCOUNTER 2018-03-26 22:10 | Inpatient (IN) | payer OTHER ==
[2018-03-26 22:34] VITALS: BMI 38.7
--- NOTE | 2018-03-26 23:09 | PDOC ---
History of Present Illness - General History Source: Patient, Family, Old Records Exam Limitations: No Limitations - History of Present Illness Initial Comments: 03/26/18 23:39 The patient is a 28 year old male with a significant past medical history of alcohol abuse (multiple prior admissions for detox/rehab) and liver cirrhosis who presents to the emergency department for evaluation. The patients family report that they found pills in his room and became concerned that he might do something to harm himself as he has been depressed lately. The patient states that the pills in his room are Naltrexone and denies any suicidal ideations. Allergies: None reported. Past Surgical History: None reported. Social History: See HPI. <Dyana Batista - Last Filed: 03/26/18 23:40> <Roxanna Wellington - Last Filed: 03/27/18 06:09> - General Chief Complaint: Alcohol intoxication Stated Complaint: ALCOHOL INTOXICATION Time Seen by Provider: 03/26/18 22:54 Past History <Dyana Batista - Last Filed: 03/26/18 23:40> - Past Medical History Anemia: No Asthma: No Cancer: No Cardiac Disorders: No CVA: No COPD: No CHF: No DVT: No Dementia: No Diabetes: No GI Disorders: No Disorders: No HTN: Yes (Alcohol induced, not on meds) Hypercholesterolemia: No Kidney Stones: No Liver Disease: Yes (Cirrhosis) Seizures: No Thyroid Disease: No Lung CA: No - Surgical History Abdominal Surgery: No Appendectomy: No Cardiac Surgery: No Cholecystectomy: No Gastric Stapling: No Lung Surgery: No Neurologic Surgery: No Orthopedic Surgery: No - Reproductive History Testicular Surgery: No - Immunization History Immunization Up to Date: No - Suicide/Smoking/Psychosocial Hx Smoking Status: No Smoking History: Never smoked Have you smoked in the past 12 months: No Number of Cigarettes Smoked Daily: 0 Cigars Per Day: 0 Information on smoking cessation initiated: No Hx Alcohol Use: Yes (Daily) Drug/Substance Use Hx: Yes (Marijuana) Substance Use Type: Alcohol Hx Substance Use Treatment: Yes ([facility]) <Roxanna Wellington - Last Filed: 03/27/18 06:09> - Past Medical History Allergies/Adverse Reactions: Allergies Allergy/AdvReac Type Severity Reaction Status Date / Time No Known Allergies Allergy Verified 03/26/18 22:19 Home Medications: Ambulatory Orders NK [No Known Home Medication] 02/10/18 Review of Systems - Review of Systems Able to Perform ROS?: Yes Comments:: 03/26/18 23:40 GENERAL/CONSTITUTIONAL: No fever or chills. No weakness. HEAD, EYES, EARS, NOSE AND THROAT: No change in vision. No ear pain or discharge. No sore throat. CARDIOVASCULAR: No chest pain or shortness of breath. RESPIRATORY: No cough, wheezing, or hemoptysis. GASTROINTESTINAL: No nausea, vomiting, diarrhea or constipation. GENITOURINARY: No dysuria, frequency, or change in urination. MUSCULOSKELETAL: No joint or muscle swelling or pain. No neck or back pain. SKIN: No rash. NEUROLOGIC: No headache, vertigo, loss of consciousness, or change in strength/ sensation. ENDOCRINE: No increased thirst. No abnormal weight change. HEMATOLOGIC/LYMPHATIC: No anemia, easy bleeding, or history of blood clots. ALLERGIC/IMMUNOLOGIC: No hives or skin allergy. <Dyana Batista - Last Filed: 03/26/18 23:40> *Physical Exam - Vital Signs Last Vital Signs Temp Pulse Resp BP Pulse Ox 98.1 F 120 H 20 156/78 97 03/26/18 22:20 03/26/18 22:20 03/26/18 22:20 03/26/18 22:20 03/26/18 22:20 <Dyana Batista - Last Filed: 03/26/18 23:40> - Vital Signs Last Vital Signs Temp Pulse Resp BP Pulse Ox 98.1 F 120 H 20 156/78 97 03/26/18 22:20 03/26/18 22:20 03/26/18 22:20 03/26/18 22:20 03/26/18 22:20 - Physical Exam Comments: GENERAL: Awake, alert, and fully oriented, in no acute distress. +AOB HEAD: No signs of trauma EYES: PERRLA, EOMI, sclera anicteric, conjunctiva clear ENT: Auricles normal inspection, hearing grossly normal, nares patent, oropharynx clear without exudates. Dry mucosa NECK: Normal ROM, supple, no lymphadenopathy, JVD, or masses LUNGS: Breath sounds equal, clear to auscultation bilaterally. No wheezes, and no crackles HEART: Regular rate and rhythm, normal S1 and S2, no murmurs, rubs or gallops ABDOMEN: Soft, nontender, normoactive bowel sounds. No guarding, no rebound. No masses EXTREMITIES: Normal range of motion, 2+ pitting edema BLE. No clubbing or cyanosis. No cords, erythema, or tenderness NEUROLOGICAL: Cranial nerves II through XII grossly intact. Slurred speech, sluggish to answer questions at times. Motor and sensation intact. SKIN: Warm, Dry, normal turgor, no rashes or lesions noted. <Roxanna Wellington - Last Filed: 03/27/18 06:09> Moderate Sedation - Procedure Monitoring Vital Signs: Procedure Monitoring Vital Signs Temperature 98.1 F 03/26/18 22:20 Pulse Rate 120 H 03/26/18 22:20 Respiratory Rate 20 03/26/18 22:20 Blood Pressure 156/78 03/26/18 22:20 O2 Sat by Pulse Oximetry (%) 97 03/26/18 22:20 <Dyana Batista - Last Filed: 03/26/18 23:40> - Procedure Monitoring Vital Signs: Procedure Monitoring Vital Signs Temperature 98.1 F 03/26/18 22:20 Pulse Rate 120 H 03/26/18 22:20 Respiratory Rate 20 03/26/18 22:20 Blood Pressure 156/78 03/26/18 22:20 O2 Sat by Pulse Oximetry (%) 97 03/26/18 22:20 <Roxanna Wellington - Last Filed: 03/27/18 06:09> ED Treatment Course - LABORATORY CBC & Chemistry Diagram: 03/26/18 23:45 03/26/18 23:45 <Roxanna Wellington - Last Filed: 03/27/18 06:09> Medical Decision Making - Medical Decision Making 03/26/18 23:39 Documentation prepared by Dyana Batista, acting as medical artist for Roxanna Wellington MD. <Dyana Batista - Last Filed: 03/26/18 23:40> - Medical Decision Making 03/26/18 23:07 Pt is tachycardic on initial exam, +AOB. As per family he is confused, not at his baseline. He answers questions sluggishly, which may be due to intoxication , but hepatic encephalopathy is on the differential as well. He states that the pills were naltrexone, however, will send tox screen, ASA, APAP, as well. 03/27/18 01:01 Labs show elevated ammonia, hypokalemia. Will give lactulose and potassium. Calcium corrects to 8.7. 03/27/18 01:40 Pt accepted for admission by hospitalist Dr. Miller. <Roxanna Wellington - Last Filed: 03/27/18 06:09> *DC/Admit/Observation/Transfer <Dyana Batista - Last Filed: 03/26/18 23:40> - Discharge Dispostion Decision to Admit order: Yes <Roxanna Wellington - Last Filed: 03/27/18 06:09> Diagnosis at time of Disposition: Alcohol abuse, Hypokalemia, Thrombocytopenia, Hepatic encephalopathy Liver cirrhosis, alcoholic Qualifiers: Ascites presence: unspecified Qualified Code(s): K70.30 - Alcoholic cirrhosis of liver without ascites - Discharge Dispostion Condition at time of disposition: Stable
[2018-03-26] MEDS ORDERED: SODIUM CHLORIDE 1,000 ML IV STA (23:10)
[2018-03-27 00:32] LABS: BASO % 0.7 % (0-2.0); EOS % 0.9 % (0-4.5); HEMATOCRIT 33.1 % (35.4-49); HEMOGLOBIN 12.3 GM/dL (11.7-16.9); LYMPH % 25.9 % (8-40); MCH 34.7 pg (25.7-33.7); MCHC 37.2 g/dl (32.0-35.9); MEAN CELL VOLUME 93.2 fl (80-96); MEAN PLT VOLUME 8.5 fl (7.5-11.1); MONO % 7.1 % (3.8-10.2); NEUT % 65.4 % (42.8-82.8); RBC 3.55 M/mm3 (4.00-5.60); RDW 13.9 % (11.9-15.9); WHITE BLOOD COUNT 6.7 K/mm3 (4.0-10.0)
[2018-03-27 00:34] LABS: PLATELET COUNT 34 K/MM3 (134-434)
[2018-03-27 00:44] LABS: ALBUMIN 2.8 g/dl (3.4-5.0); ALK PHOS 127 U/L (45-117); ANION GAP 9 MMOL/L (8-16); BILIRUBIN,TOTAL 4.5 mg/dL (0.2-1); BLOOD UREA NITROGEN 3 mg/dL (7-18); CALCIUM 7.9 mg/dL (8.5-10.1); CHLORIDE 99 mmol/L (98-107); CO2 30 mmol/L (21-32); CREATININE 0.5 mg/dL (0.55-1.3); GLUCOSE,RANDOM 139 mg/dL (74-106); SGOT/AST 124 U/L (15-37); SGPT/ALT 62 U/L (13-61); SODIUM 138 mmol/L (136-145); TOT PROT 7.4 g/dl (6.4-8.2)
[2018-03-27] MEDS ORDERED: LACTULOSE 20 GM/30 ML UDC (FOR ORAL USE ONLY) PO ONE (00:48)
[2018-03-27 00:54] LABS: POTASSIUM 2.9 mmol/L (3.5-5.1)
[2018-03-27] MEDS ORDERED: POTASSIUM CHLORIDE ORAL LIQUID 20 MEQ/15 ML PO ONE (01:00)
[2018-03-27] MEDS ORDERED: LACTULOSE 20 GM/30 ML UDC (FOR ORAL USE ONLY) ONE ×2 (01:08→22:53)
[2018-03-27] MEDS ORDERED: POTASSIUM CHLORIDE ORAL LIQUID 20 MEQ/15 ML ONE (01:09)
[2018-03-27] MEDS ORDERED: chlordiazePOXIDE HCL 25 MG CAPSULE PO ONE (01:57)
[2018-03-27] MEDS ORDERED: chlordiazePOXIDE HCL 25 MG CAPSULE ONE (02:01)
--- NOTE | 2018-03-27 02:04 | HP ---
CHIEF COMPLAINT: PCP: HISTORY OF PRESENT ILLNESS: ER course was notable for: (1) (2) (3) Recent Travel: PAST MEDICAL HISTORY: PAST SURGICAL HISTORY: Social History: Smoking: Alcohol: Drugs: Family History: Allergies No Known Allergies Allergy (Verified 03/26/18 22:19) HOME MEDICATIONS: Home Medications Medication Instructions Recorded NK [No Known Home Medication] 02/10/18 REVIEW OF SYSTEMS CONSTITUTIONAL: Absent: fever, chills, diaphoresis, generalized weakness, malaise, loss of appetite, weight change HEENT: Absent: rhinorrhea, nasal congestion, throat pain, throat swelling, difficulty swallowing, mouth swelling, ear pain, eye pain, visual changes CARDIOVASCULAR: Absent: chest pain, syncope, palpitations, irregular heart rate, lightheadedness , peripheral edema RESPIRATORY: Absent: cough, shortness of breath, dyspnea with exertion, orthopnea, wheezing, stridor, hemoptysis GASTROINTESTINAL: Absent: abdominal pain, abdominal distension, nausea, vomiting, diarrhea, constipation, melena, hematochezia GENITOURINARY: Absent: dysuria, frequency, urgency, hesitancy, hematuria, flank pain, genital pain MUSCULOSKELETAL: Absent: myalgia, arthralgia, joint swelling, back pain, neck pain SKIN: Absent: rash, itching, pallor HEMATOLOGIC/IMMUNOLOGIC: Absent: easy bleeding, easy bruising, lymphadenopathy, frequent infections ENDOCRINE: Absent: unexplained weight gain, unexplained weight loss, heat intolerance, cold intolerance NEUROLOGIC: Absent: headache, focal weakness or paresthesias, dizziness, unsteady gait, seizure, mental status changes, bladder or bowel incontinence PSYCHIATRIC: Absent: anxiety, depression, suicidal or homicidal ideation, hallucinations. PHYSICAL EXAMINATION Vital Signs - 24 hr 03/26/18 22:20 Temperature 98.1 F Pulse Rate 120 H Respiratory 20 Rate Blood Pressure 156/78 O2 Sat by Pulse 97 Oximetry (%) GENERAL: Awake, alert, and fully oriented, in no acute distress. HEAD: Normal with no signs of trauma. EYES: Pupils equal, round and reactive to light, extraocular movements intact, sclera anicteric, conjunctiva clear. No lid lag. EARS, NOSE, THROAT: Ears normal, nares patent, oropharynx clear without exudates. Moist mucous membranes. NECK: Normal range of motion, supple without lymphadenopathy, JVD, or masses. LUNGS: Breath sounds equal, clear to auscultation bilaterally. No wheezes, and no crackles. No accessory muscle use. HEART: Regular rate and rhythm, normal S1 and S2 without murmur, rub or gallop. ABDOMEN: Soft, nontender, not distended, normoactive bowel sounds, no guarding, no rebound, no masses. No hepatomegaly or splenomegaly. MUSCULOSKELETAL: Normal range of motion at all joints. No bony deformities or tenderness. No CVA tenderness. UPPER EXTREMITIES: 2+ pulses, warm, well-perfused. No cyanosis. No clubbing. No peripheral edema. LOWER EXTREMITIES: 2+ pulses, warm, well-perfused. No calf tenderness. No peripheral edema. NEUROLOGICAL: Cranial nerves II-XII intact. Normal speech. Normal gait. PSYCHIATRIC: Cooperative. Good eye contact. Appropriate mood and affect. SKIN: Warm, dry, normal turgor, no rashes or lesions noted, normal capillary refill. Laboratory Results - last 24 hr 03/26/18 03/26/18 03/26/18 23:45 23:45 23:45 WBC 6.7 RBC 3.55 L Hgb 12.3 Hct 33.1 L MCV 93.2 MCH 34.7 H MCHC 37.2 H RDW 13.9 D Plt Count 34 L* MPV 8.5 Absolute Neuts (auto) 4.4 Neutrophils % 65.4 Lymphocytes % 25.9 Monocytes % 7.1 Eosinophils % 0.9 Basophils % 0.7 Nucleated RBC % 0 Sodium 138 Potassium 2.9 L* Chloride 99 Carbon Dioxide 30 Anion Gap 9 BUN 3 L Creatinine 0.5 L Creat Clearance w eGFR > 60 Random Glucose 139 H Calcium 7.9 L Total Bilirubin 4.5 H AST 124 H ALT 62 H Alkaline Phosphatase 127 H Ammonia 57.70 H Total Protein 7.4 Albumin 2.8 L Salicylates < 0.2 L Acetaminophen < 0.2 L Alcohol, Quantitative 380.3 H ASSESSMENT/PLAN: Alcoholic cirrhosis Alcohol abuse Depression; questionable suicidal ideations Elevated ammonia Thrombocytopenia Hypoalbuminemia Hypokalemia HTN Prolonged Qtc --1:1; pt expresses no suicidal ideations, however has not been forthcoming about his depression --Family suggests that there may have been unsuccessful suicide attempts in the past --Psych consult --GI consult --MELD could not be calculated due to lack of INR (previously 21) --Lactulose 30cc QID akbar titrated to 2-3 BM per day --Rifaximine 550mg BID PO --Banana bag --Thiamine and folic acid daily --Previous Hep panels negative --Valium detox taper (due to elevated transaminases) --Fractionate Bili --KCl 10mEq IV x3; will need rpt K+ level and continued repletion in AM --Avoid QTc prolonging agents --Monitor for bleeding; thrombocytopenia likely from cirrhosis --Pt does not qualify for transplant at current time due to recent drinking --UA and UTox pending FEN: Fluids: Banana bag Electrolyte abnormalities: Hypokalemia as above Nutrition: Regular diet PPX: DVT - SCDs due to severe thrombocytopenia Case discussed with Dr. Andrew Miller, DO - IM PGY-2
[2018-03-27 02:58] LABS: URINE APPEARANCE CLEAR; URINE BILIRUBIN NEGATIVE (<2.0 mg/dL); URINE GLUCOSE (UA) NEGATIVE (NEGATIVE); URINE KETONE NEGATIVE (NEGATIVE); URINE LEUK ESTERASE NEGATIVE (NEGATIVE); URINE NITRITE NEGATIVE (NEGATIVE); URINE PROTEIN 2+ (NEGATIVE); URINE UROBILINOGEN 4.0 E.U/dl mg/dL (0.2-1.0)
[2018-03-27 03:00] LABS: URINE COLOR YELLOW
[2018-03-27 03:01] LABS: EPI CELLS RARE /HPF (FEW)
[2018-03-27] MEDS ORDERED: FOLIC ACID INJECTION - 1 MG, THIAMINE HCL 100 MG, MULTIVIT INJECTION ADULT 10 ML in SOD... IVPB ONE ×2 (03:13→08:03)
[2018-03-27 03:17] LABS: COCAINE, UR NEGATIVE ng/ml (CUTOFF=300); METHADONE, UR NEGATIVE ng/ml (CUTOFF=300); OPIATES, URI NEGATIVE ng/ml (CUTOFF=300); PHENCYCLIDINE,URINE NEGATIVE ng/ml (CUTOFF=25); URINE AMPHETAMINES NEGATIVE ng/ml (CUTOFF=500); URINE BARBITURATES NEGATIVE ng/ml (CUTOFF=200); URINE BENZODIAZEPINES NEGATIVE ng/ml (CUTOFF=200)
[2018-03-27] MEDS: KCL 10 MEQ IVPB 10 MEQ/100 ML INFUS.BAG IVPB SCH ×3 (04:05→08:25)
[2018-03-27] MEDS ORDERED: KCL 10 MEQ IVPB 10 MEQ/100 ML INFUS.BAG IVPB ONE ×3 (04:11→08:19)
--- NOTE | 2018-03-27 05:29 | PN ---
Teaching Attending Note Name of Resident: Carlo Miller ATTENDING PHYSICIAN STATEMENT I saw and evaluated the patient. I reviewed the resident's note and discussed the case with the resident. I agree with the resident's findings and plan as documented. SUBJECTIVE: The patient is a 28 year old male with a significant past medical history of alcohol abuse (multiple prior admissions for detox/rehab) and liver cirrhosis who was patricia by his family after they found him on the floor in his room. The patients family report that he had been drinking and they found pills in his room and became concerned that he might do something to harm himself as he has been depressed lately. The patient states that the pills in his room are Naltrexone and denies any suicidal ideations. OBJECTIVE: Somnolent but arousable Vital Signs Period Temp Pulse Resp BP Sys/Bernard Pulse Ox Last 24 Hr 98.1 F 120 20 156/78 97 HEENT: +Jaundice, eye redness or discharge, PERRLA, EOMI. Normocephalic, atraumatic. External ears are normal and hearing is grossly intact. No nasal discharge. Neck: Supple, nontender. No palpable adenopathy or thyromegaly. No JVD Chest: Good effort. Clear to auscultation and percussion. Heart: Tachycardia. No S3, rub or murmur Abdomen: Obese; not distended, soft, nontender and no HSM. No rebound or guarding. Normoactive bowel sounds. Ext: Peripheral pulses intact. Bruises on legs and leg edema. Skin: Warm and dry. No petechiae, rash or ecchymosis. Neuro: Somnolent but arousable. Oriented to person and place. No asterexis or tremors. CN 2-12 grossly intact. Sensation grossly intact in all four extremities and DTR are symmetric. Psych: Sad mood. Poor insight and judgement; appropriate affect. Denies SI and HI. Current Medications Generic Name Dose Route Start Last Admin Trade Name Freq PRN Reason Stop Dose Admin Diazepam 5 mg 03/27/18 06:00 Valium - PO 03/28/18 22:01 TID JAIDEN Diazepam 5 mg 03/29/18 10:00 Valium - PO 03/30/18 22:01 BID JAIDEN Diazepam 5 mg 03/31/18 10:00 Valium - PO 12/25/18 10:01 DAILY JAIDEN Diazepam 10 mg 12/21/18 03:06 Valium - PO 03/30/18 03:05 Q4H PRN WITHDRAWAL(CONT SUBST) Folic Acid 1 mg 03/27/18 10:00 Folic Acid - PO DAILY [facility] Potassium Chloride 10 meq in 100 mls @ 100 mls/hr 03/27/18 03:15 03/27/18 04: 05 Potassium Chloride 10 Meq Premix Ivpb - IVPB 03/27/18 06:14 100 mls/hr Q60M JAIDEN Administration Folic Acid 1 mg/ Thiamine HCl 1,000 mls @ 125 mls/hr 03/27/18 03:13 03/27/18 04:00 100 mg/ Multivitamins/Minerals IVPB 03/27/18 11:12 125 mls/hr 10 ml/ Sodium Chloride ONCE ONE Administration Lactulose 20 gm 03/27/18 10:00 Cephulac (Oral Use) PO QID JAIDEN Pantoprazole Sodium 40 mg 03/27/18 10:00 Protonix - PO DAILY [facility] Rifaximin 550 mg 03/27/18 10:00 Xifaxan - PO BID [facility] Home Medications Medication Instructions Recorded NK [No Known Home Medication] 02/10/18 Abnormal Lab Results 03/26/18 03/26/18 03/26/18 23:45 23:45 23:45 RBC 3.55 L Hct 33.1 L MCH 34.7 H MCHC 37.2 H Plt Count 34 L* Potassium 2.9 L* BUN 3 L Creatinine 0.5 L Random Glucose 139 H Calcium 7.9 L Total Bilirubin 4.5 H AST 124 H ALT 62 H Alkaline Phosphatase 127 H Ammonia 57.70 H Albumin 2.8 L Ur Specific [place] Urine Protein Urine Blood Salicylates < 0.2 L Acetaminophen < 0.2 L Alcohol, Quantitative 380.3 H 03/27/18 02:13 RBC Hct MCH MCHC Plt Count Potassium BUN Creatinine Random Glucose Calcium Total Bilirubin AST ALT Alkaline Phosphatase Ammonia Albumin Ur Specific [place] 1.005 L Urine Protein 2+ H Urine Blood 1+ H Salicylates Acetaminophen Alcohol, Quantitative ASSESSMENT AND PLAN: 1. Alcohol intoxication and Hepatic Encephalopathy - Known to have cirrhosis, but still has an enlarged liver and splenomegaly. Looks like he is primarily intoxicated, but will still treat him with lactulose and rifaximin for hepatic encephalopathy, trend LFTs, check magnesium and phospahte levels and promptly correct hypokalemia. Had hepatitis profile done in 05/2017 and B&C were negative while A was positive. Urine toxicology pending. Monitor platelets daily. Really depressed - will do one to one monitoring until he is seen by psychiatry in the morning. 2. Alcohol abuse - Implement [facility] alcohol withdrawal protocol, fall and aspiration precautions. Treat with IV and PO thiamine, folic acid and monitor electrolytes (Ca,Mg,K,P). Ensure adequate nutrition. [employer] Equipment [employer] patient about abstaining from alcohol and refer to alcohol detox upon discharge. 3. Hypoalbuminemia - Possibly due to combined effects of proteinuria, liver disease, malnutrition and inflammation associated with comorbid chronic conditions. Will ensure adequate dietary protein intake and also consult workers compensation defense attorney. 4. Obesity - Will provide patient all the necessary assistance , counseling and positive reinforcement to facilitate weight loss. Consult workers compensation defense attorney. 5. DVT prophylaxis - Platelet count too low for heparin or compressive devices. Encourage early ambulation with monitoring to avoid fall. 6. Advance directives - Full code
[2018-03-27] MEDS ORDERED: diazePAM 5 MG TABLET PO SCH (06:00)
[2018-03-27] MEDS ORDERED: diazePAM 5 MG TABLET ONE ×3 (07:04→22:53)
[2018-03-27 07:43] LABS: INR 1.72 (0.83-1.09); PROTHROMBIN TIME (PATIENT) 20.4 SEC (9.7-13.0)
[2018-03-27 08:02] LABS: HEMATOCRIT 31.1 % (35.4-49); HEMOGLOBIN 11.2 GM/dL (11.7-16.9); MCH 34.2 pg (25.7-33.7); MCHC 36.1 g/dl (32.0-35.9); MEAN CELL VOLUME 94.8 fl (80-96); MEAN PLT VOLUME 8.8 fl (7.5-11.1); RBC 3.29 M/mm3 (4.00-5.60); RDW 14.2 % (11.9-15.9)
[2018-03-27 08:05] LABS: PLATELET COUNT 33 K/MM3 (134-434)
--- NOTE | 2018-03-27 08:09 | PN ---
Teaching Attending Note Name of Resident: Cy Ventura ATTENDING PHYSICIAN STATEMENT I saw and evaluated the patient. I reviewed the resident's note and discussed the case with the resident. I agree with the resident's findings and plan as documented with exceptions below. SUBJECTIVE: Patient seen and examined. Lying in bed in no acute distress. Alert awake, appropriate, fully oriented. reports drinking yesterday, wanting detox, so was brought by family. Reports taking naltrexone. Endorses depression but denies any SI or suicidal attempt. Tearful OBJECTIVE: Vital Signs Period Temp Pulse Resp BP Sys/Bernard Pulse Ox Last 24 Hr 98.1 F 120 20 156/78 97 Intake & Output 03/24/18 03/25/18 03/26/18 03/27/18 23:59 23:59 23:59 23:59 Weight 212 lb General: sitting in bed in no acute distress, icterus Chest: CTAB, no rales or wheezing CVS: S1S2 regular Abdomen: soft, obese, NT throughout, positive bowel sounds Extremities: no edema or tremors Neuro: aaOx3, power 5/5, no tremors. cranial nerves II-XII intact Home Medications Medication Instructions Recorded NK [No Known Home Medication] 02/10/18 Active Medications Diazepam (Valium -) 10 mg PO Q4H PRN PRN Reason: WITHDRAWAL(CONT SUBST) Stop: 03/30/18 03:05 Folic Acid (Folic Acid -) 1 mg PO DAILY [facility] Folic Acid 1 mg/ Thiamine HCl 100 mg/ Multivitamins/Minerals 10 ml/ Sodium Chloride 1,000 mls @ 125 mls/hr IVPB ONCE ONE Stop: 03/27/18 11:12 Last Admin: 03/27/18 04:00 Dose: 125 mls/hr Folic Acid 1 mg/ Thiamine HCl 100 mg/ Multivitamins/Minerals 10 ml/ Sodium Chloride 1,000 mls @ 100 mls/hr IVPB ONCE ONE Stop: 03/27/18 18:02 Lactulose (Cephulac (Oral Use)) 20 gm PO QID JAIDEN Nadolol (Corgard -) 40 mg PO DAILY JAIDEN Pantoprazole Sodium (Protonix -) 40 mg PO DAILY JAIDEN Rifaximin (Xifaxan -) 550 mg PO BID JAIDEN Laboratory Results - last 24 hr 12/20/18 12/20/18 12/20/18 23:45 23:45 23:45 WBC 6.7 RBC 3.55 L Hgb 12.3 Hct 33.1 L MCV 93.2 MCH 34.7 H MCHC 37.2 H RDW 13.9 D Plt Count 34 L* MPV 8.5 Absolute Neuts (auto) 4.4 Neutrophils % 65.4 Lymphocytes % 25.9 Monocytes % 7.1 Eosinophils % 0.9 Basophils % 0.7 Nucleated RBC % 0 PT with INR INR Sodium 138 Potassium 2.9 L* Chloride 99 Carbon Dioxide 30 Anion Gap 9 BUN 3 L Creatinine 0.5 L Creat Clearance w eGFR > 60 Random Glucose 139 H Calcium 7.9 L Total Bilirubin 4.5 H AST 124 H ALT 62 H Alkaline Phosphatase 127 H Ammonia 57.70 H Total Protein 7.4 Albumin 2.8 L Urine Color Urine Appearance Urine pH Ur Specific [place] Urine Protein Urine Glucose (UA) Urine Ketones Urine Blood Urine Nitrite Urine Bilirubin Urine Urobilinogen Ur Leukocyte Esterase Urine WBC (Auto) Urine RBC (Auto) Ur Epithelial Cells Salicylates < 0.2 L Opiates Screen Methadone Screen Acetaminophen < 0.2 L Barbiturate Screen Phencyclidine Screen Ur Amphetamines Screen MDMA (Ecstasy) Screen Benzodiazepines Screen Cocaine Screen U Marijuana (THC) Screen Alcohol, Quantitative 380.3 H 03/27/18 03/27/18 03/27/18 02:13 02:13 06:00 WBC 6.0 RBC 3.29 L Hgb 11.2 L Hct 31.1 L MCV 94.8 MCH 34.2 H MCHC 36.1 H RDW 14.2 Plt Count 33 L* MPV 8.8 Absolute Neuts (auto) Neutrophils % Lymphocytes % Monocytes % Eosinophils % Basophils % Nucleated RBC % PT with INR INR Sodium Potassium Chloride Carbon Dioxide Anion Gap BUN Creatinine Creat Clearance w eGFR Random Glucose Calcium Total Bilirubin AST ALT Alkaline Phosphatase Ammonia Total Protein Albumin Urine Color Yellow Urine Appearance Clear Urine pH 6.0 Ur Specific [place] 1.005 L Urine Protein 2+ H Urine Glucose (UA) Negative Urine Ketones Negative Urine Blood 1+ H Urine Nitrite Negative Urine Bilirubin Negative Urine Urobilinogen 4.0 e.u/dl Ur Leukocyte Esterase Negative Urine WBC (Auto) 1 Urine RBC (Auto) 4 Ur Epithelial Cells Rare Salicylates Opiates Screen Negative Methadone Screen Negative Acetaminophen Barbiturate Screen Negative Phencyclidine Screen Negative Ur Amphetamines Screen Negative MDMA (Ecstasy) Screen Negative Benzodiazepines Screen Negative Cocaine Screen Negative U Marijuana (THC) Screen Negative Alcohol, Quantitative 03/27/18 06:00 WBC RBC Hgb Hct MCV MCH MCHC RDW Plt Count MPV Absolute Neuts (auto) Neutrophils % Lymphocytes % Monocytes % Eosinophils % Basophils % Nucleated RBC % PT with INR 20.40 H INR 1.72 H Sodium Potassium Chloride Carbon Dioxide Anion Gap BUN Creatinine Creat Clearance w eGFR Random Glucose Calcium Total Bilirubin AST ALT Alkaline Phosphatase Ammonia Total Protein Albumin Urine Color Urine Appearance Urine pH Ur Specific [place] Urine Protein Urine Glucose (UA) Urine Ketones Urine Blood Urine Nitrite Urine Bilirubin Urine Urobilinogen Ur Leukocyte Esterase Urine WBC (Auto) Urine RBC (Auto) Ur Epithelial Cells Salicylates Opiates Screen Methadone Screen Acetaminophen Barbiturate Screen Phencyclidine Screen Ur Amphetamines Screen MDMA (Ecstasy) Screen Benzodiazepines Screen Cocaine Screen U Marijuana (THC) Screen Alcohol, Quantitative ASSESSMENT AND PLAN: 28 yom with PMHx of ETOH abuse, Alcohol cirrhosis with portal hypertension, esophageal varices, multiple admissions for detox brought in by family as found with empty pill bottles and concern for suicidal ideation. -Alcohol abuse -Acute alcohol intoxication -AMS, from ETOH intoxication+/- hepatic encephalopaty, ?Drug OD, r/o head trauma -Child Lyons Class B Alcoholic cirrhosis with portal hypertension?Esophageal varices -Chronic thrombocytopenia suspect from alcohol related bone marrow suppression/ Splenomegaly -Depression/?Suicidal ideation Plan: Banana bag, resume nadolol/protonix. Continue lactulose. Currently AAOx3 and appropriate. CT brain neg for acute process. GI input. DF 43 however LFTs unchanged from prior. Trend LFTs and hold off on steroids, follow up with GI. 1:1 constant observation. Await psych input. Valium prn, no clinical evidence of withdrawal currently, monitor. Detailed counseling on alcohol cessation, concerning liver disease and high risk of mortality. Patient tearful and agreable to detox. DVTPPx with SCDs dispo pending clinical improvement. Plan discussed with patient in detail, all questions answered.
[2018-03-27 08:26] LABS: ALBUMIN 2.6 g/dl (3.4-5.0); ALK PHOS 113 U/L (45-117); ANION GAP 8 MMOL/L (8-16); BILIRUBIN,DIRECT 1.8 mg/dL (0.0-0.2); BILIRUBIN,TOTAL 4.5 mg/dL (0.2-1); BLOOD UREA NITROGEN 4 mg/dL (7-18); CALCIUM 7.6 mg/dL (8.5-10.1); CHLORIDE 104 mmol/L (98-107); CO2 28 mmol/L (21-32); CREATININE 0.4 mg/dL (0.55-1.3); GLUCOSE,RANDOM 111 mg/dL (74-106); MAGNESIUM 1.9 mg/dL (1.8-2.4); PHOSPHOROUS 2.8 mg/dL (2.5-4.9); POTASSIUM 3.2 mmol/L (3.5-5.1); SGOT/AST 120 U/L (15-37); SGPT/ALT 56 U/L (13-61); SODIUM 140 mmol/L (136-145); TOT PROT 6.8 g/dl (6.4-8.2)
[2018-03-27] MEDS: RIFAXIMIN 550 MG TABLET (UD) PO SCH ×2 (10:17→22:55)
[2018-03-27] MEDS: FOLIC ACID 1 MG TABLET (FP) PO SCH (10:17)
[2018-03-27] MEDS: LACTULOSE 20 GM/30 ML UDC (FOR ORAL USE ONLY) PO SCH ×4 (10:17→22:55)
[2018-03-27] MEDS: PANTOPRAZOLE 40 MG TABLET (FP) PO SCH (10:17)
[2018-03-27] MEDS: NADOLOL 40 MG TABLET (FP) PO SCH (10:17)
--- NOTE | 2018-03-27 11:24 | EKG ---
Test Reason : Blood Pressure : / mmHG Vent. Rate : 111 BPM Atrial Rate : 111 BPM P-R Int : 158 ms QRS Dur : 100 ms QT Int : 374 ms P-R-T Axes : 055 012 019 degrees QTc Int : 508 ms SINUS TACHYCARDIA OTHERWISE NORMAL ECG WHEN COMPARED WITH ECG OF 07-JAN-2018 21:54, NO SIGNIFICANT CHANGE WAS FOUND Confirmed by ELIANE LONDON MD ([id number]) on 03/27/2018 11:24:51 AM Referred By: Confirmed By:ELIANE LONDON MD
--- NOTE | 2018-03-27 14:33 | CON.PSY ---
Psychiatry Consult Chief Complaint: i am mnot suicidal, i have been drinking. - Previous Psychiatric Treatment Outpatient: None Inpatient: None - Previous Substance Abuse Treatment Outpatient: None Inpatient: None - Current Medications Current Medications: Active Medications Diazepam (Valium -) 10 mg PO Q4H PRN PRN Reason: WITHDRAWAL(CONT SUBST) Stop: 03/30/18 03:05 Folic Acid (Folic Acid -) 1 mg PO DAILY [facility] Last Admin: 03/27/18 10:17 Dose: 1 mg Sodium Chloride (Normal Saline -) 1,000 mls @ 75 mls/hr IV ASDIR [facility] Lactulose (Cephulac (Oral Use)) 20 gm PO QID [facility] Last Admin: 03/27/18 14:14 Dose: Not Given Nadolol (Corgard -) 40 mg PO DAILY [facility] Last Admin: 03/27/18 10:17 Dose: 40 mg Pantoprazole Sodium (Protonix -) 40 mg PO DAILY [facility] Last Admin: 03/27/18 10:17 Dose: 40 mg Rifaximin (Xifaxan -) 550 mg PO BID [facility] Last Admin: 03/27/18 10:17 Dose: 550 mg Thiamine HCl (Vitamin B1 -) 100 mg PO DAILY [facility] - Allergies Allergies: Allergies Allergy/AdvReac Type Severity Reaction Status Date / Time No Known Allergies Allergy Verified 03/26/18 22:19 - Current Living Status Usual Living Arrangement: With Parent - Current Mental Status Evaluation Appearance: Well Groomed Attitude: Cooperative - Affect Affect: Full Range - Mood Mood: Euthymic - Speech/Language Expressive: Coherent - Psychomotor Activity Psychomotor Activity: Normal - Thought Process Thought Process: Intact - Thought Content Hallucinations: Absent Delusions: Absent - Self Perception Self Perception: No Impairment - Cognition Attention: Alert Orientation: Time Memory, Immediate Recall: Intact Memory, Short Term: 3/3 Memory, Remote with Promptin/3 - Concentration Serial Sevens Intact: Yes Simple Calculations Intact: Yes - Abstraction Proverb Interpretation: Intact Judgement: Minimally Impaired - Insight Insight: Intact - Impulse Control Impulse Control: Minimally Impaired - Suicidal Ideation Suicidal Ideation: No - Homicidal Ideation Homicidal Ideation: No Assessment/Plan 1) P{atient is not suicidal. 2) d/c 1:1.
[2018-03-27] MEDS: THIAMINE HCL 100 MG TABLET (FP) PO SCH (16:14)
[2018-03-27] MEDS: SODIUM CHLORIDE 1,000 ML IV SCH (16:14)
--- NOTE | 2018-03-27 16:21 | CON.GI ---
Consult Consult Specialty:: GI - History of Present Illness History of Present Illness: Patient medical records reviewed. 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 He was admitted for possible suicidal ideation. Psychiatry saw the patient and was deemed non-suicidal. I spoke to the patient and his mother at length and was advised to continue to abstain from alcohol use. He wants to submit himself for rehabilitation. - Past Medical History Hepatobiliary: Yes: Cirrhosis - Alcohol/Substance Use Hx Alcohol Use: Yes (Daily) - Smoking History Smoking history: Never smoked Have you smoked in the past 12 months: No Aproximately how many cigarettes per day: 0 - Social History Usual Living Arrangement: With Parent Home Medications - Allergies Allergies/Adverse Reactions: Allergies Allergy/AdvReac Type Severity Reaction Status Date / Time No Known Allergies Allergy Verified 03/26/18 22:19 - Home Medications Home Medications: Ambulatory Orders NK [No Known Home Medication] 02/10/18 Family Disease History - Family Disease History Family Disease History: Diabetes: Grandparent, Other: Father (ALCOHOLISM, ) Review of Systems - Review of Systems Constitutional: denies: No Symptoms, Chills, Diaphoresis, Fever, Lethargy, Loss of Appetite, Malaise, Night Sweats, Unintentional Wgt. Loss, Weakness, Other Eyes: denies: No Symptoms, Blind Spots, Blurred Vision, Double Vision, Eye Pain , Floaters, Photophobia, Recent Change in Vision, Other HENT: denies: No Symptoms, Difficult Swallowing, Ear Discharge, Ear Pain, Epistaxis, Gingival Bleeding, Hearing Loss, Mouth Swelling, Nasal Congestion, Ocular Prosthesis, Throat Pain, Toothache, Ringing in Ears, Other Cardiovascular: denies: No Symptoms, Chest Pain, Edema, Palpitations, Shortness of Breath, Other Respiratory: denies: No Symptoms, Cough, Exercise Intolerance, Hemoptysis, Orthopnea, PND, Snoring, SOB, SOB on Exertion, Wheezing, Other Gastrointestinal: denies: No Symptoms, Abdominal Pain, Bloating, Constipation, Diarrhea, Dysphagia, Indigestion, Melena, Nausea, Rectal Bleeding, Vomiting, Vomiting Blood, Other Physical Exam-GI Vital Signs: Vital Signs Temperature 98.2 F 03/27/18 15:14 Pulse Rate 80 03/27/18 15:14 Respiratory Rate 18 03/27/18 15:14 Blood Pressure 122/80 03/27/18 15:14 O2 Sat by Pulse Oximetry (%) 96 03/27/18 15:14 Constitutional: Yes: Obese Eyes: Yes: Sclera Icterus HENT: Yes: Atraumatic Neck: Yes: Supple Cardiovascular: Yes: Regular Rate and Rhythm Respiratory: Yes: CTA Bilaterally ...Palpate: Yes: Soft. No: Firm/Rigid, Guarding, Hepatomegaly, Mass, Pulsatile Mass, Splenomegaly, Tenderness Labs: CBC, BMP 03/27/18 06:00 03/27/18 06:00 INR, PTT INR 1.72 (0.83-1.09) H 03/27/18 06:00 Hepatic Panel Total Bilirubin 4.5 mg/dL (0.2-1) H 03/27/18 06:00 Direct Bilirubin 1.8 mg/dL (0.0-0.2) H 03/27/18 06:00 AST 120 U/L (15-37) H 03/27/18 06:00 ALT 56 U/L (13-61) 03/27/18 06:00 Alkaline Phosphatase 113 U/L (45-117) 03/27/18 06:00 Albumin 2.6 g/dl (3.4-5.0) L 03/27/18 06:00 Ambulatory Orders NK [No Known Home Medication] 02/10/18 Active Medications Diazepam (Valium -) 10 mg PO Q4H PRN PRN Reason: WITHDRAWAL(CONT SUBST) Stop: 03/30/18 03:05 Folic Acid (Folic Acid -) 1 mg PO DAILY [facility] Last Admin: 03/27/18 10:17 Dose: 1 mg Sodium Chloride (Normal Saline -) 1,000 mls @ 75 mls/hr IV ASDIR [facility] Last Admin: 03/27/18 16:14 Dose: 75 mls/hr Lactulose (Cephulac (Oral Use)) 20 gm PO QID [facility] Last Admin: 03/27/18 14:14 Dose: Not Given Nadolol (Corgard -) 40 mg PO DAILY [facility] Last Admin: 03/27/18 10:17 Dose: 40 mg Pantoprazole Sodium (Protonix -) 40 mg PO DAILY [facility] Last Admin: 03/27/18 10:17 Dose: 40 mg Rifaximin (Xifaxan -) 550 mg PO BID [facility] Last Admin: 03/27/18 10:17 Dose: 550 mg Thiamine HCl (Vitamin B1 -) 100 mg PO DAILY [facility] Last Admin: 03/27/18 16:14 Dose: 100 mg Problem List - Problems (1) Alcohol abuse Assessment/Plan: continue detox protocol Code(s): F10.10 - ALCOHOL ABUSE, UNCOMPLICATED (2) Liver cirrhosis, alcoholic Code(s): K70.30 - ALCOHOLIC CIRRHOSIS OF LIVER WITHOUT ASCITES Qualifiers: Ascites presence: unspecified Qualified Code(s): K70.30 - Alcoholic cirrhosis of liver without ascites (3) Thrombocytopenia Assessment/Plan: seconadry to portal HTN Code(s): D69.6 - THROMBOCYTOPENIA, UNSPECIFIED (4) Alcohol withdrawal Code(s): F10.239 - ALCOHOL DEPENDENCE WITH WITHDRAWAL, UNSPECIFIED Qualifiers: Complication of substance-induced condition: uncomplicated Qualified Code(s ): F10.230 - Alcohol dependence with withdrawal, uncomplicated (5) Prolonged Q-T interval on ECG Assessment/Plan: ETiology uncear Code(s): R94.31 - ABNORMAL ELECTROCARDIOGRAM [ECG] [EKG] (6) Soft tissue lesion of knee region Code(s): M79.89 - OTHER SPECIFIED SOFT TISSUE DISORDERS (7) Alcoholic gastritis Code(s): K29.20 - ALCOHOLIC GASTRITIS WITHOUT BLEEDING Qualifiers: Chronicity: unspecified Gastritis bleeding: presence of bleeding unspecified Qualified Code(s): K29.20 - Alcoholic gastritis without bleeding (8) Dehydration Code(s): E86.0 - DEHYDRATION (9) HTN (hypertension) Code(s): I10 - ESSENTIAL (PRIMARY) HYPERTENSION Qualifiers: Hypertension type: essential hypertension Qualified Code(s): I10 - Essential (primary) hypertension (10) Jaundice Code(s): R17 - UNSPECIFIED JAUNDICE (11) Macrocytosis Code(s): D75.89 - OTHER SPECIFIED DISEASES OF BLOOD AND BLOOD-FORMING ORGANS (12) Bereavement Code(s): Z63.4 - DISAPPEARANCE AND OF FAMILY MEMBER (13) Depression Code(s): F32.9 - MAJOR DEPRESSIVE DISORDER, SINGLE EPISODE, UNSPECIFIED Qualifiers: Depression Type: unspecified Qualified Code(s): F32.9 - Major depressive disorder, single episode, unspecified (14) Psychiatric disorder Code(s): F99 - MENTAL DISORDER, NOT OTHERWISE SPECIFIED (15) Alcohol dependence with uncomplicated withdrawal Code(s): F10.230 - ALCOHOL DEPENDENCE WITH WITHDRAWAL, UNCOMPLICATED (16) Alcohol withdrawal Code(s): F10.239 - ALCOHOL DEPENDENCE WITH WITHDRAWAL, UNSPECIFIED Qualifiers: Complication of substance-induced condition: with unspecified complication Qualified Code(s): F10.239 - Alcohol dependence with withdrawal, unspecified
[2018-03-27] MEDS ORDERED: diazePAM 5 MG TABLET PO PRN (17:59)
[2018-03-27] MEDS ORDERED: diazePAM 5 MG TABLET PO ONE (18:15)
--- NOTE | 2018-03-27 19:46 | PN ---
Physical Exam: SUBJECTIVE: Patient seen and examined at bedside this morning. On one to one observation. Endorses drinking 6X 24oz bottles of beer last night. Denies taking any drugs other than Naloxone to reduce cravings for alcohol. States he has been drinking as his father three months ago. Currently denies suicidal homicidal ideation, and states that he wants help quitting drinking alcohol. OBJECTIVE: Vital Signs Period Temp Pulse Resp BP Sys/Bernard Pulse Ox Last 24 Hr 98.1 F-98.2 F 80-120 18-20 122-156/78-80 96-97 GENERAL: The patient is awake, alert, and fully oriented, in no acute distress. HEAD: Normal with no signs of trauma. EYES: PERRL, extraocular movements intact, sclera icteric b/l. ENT: Ears normal, nares patent, oropharynx erythematous, moist mucous membranes. NECK: Trachea midline, full range of motion, supple without lymphadenopathy LUNGS: Breath sounds equal, clear to auscultation bilaterally, no wheezes, no crackles, no accessory muscle use. HEART: Regular rate and rhythm, S1, S2 without murmur, rub or gallop. ABDOMEN: Obese. Soft, nontender, nondistended. Hypoactive bowel sounds. No guarding, no rebound tenderness. Hepatosplenomegaly palpated 2cm below right costal margin. EXTREMITIES: 2+ radial and dorsalis pedis pulses b/l. Warm, well-perfused, no edema. NEUROLOGICAL: Cranial nerves II through XII grossly intact. No tremors. No asterixis. PSYCH: Tearful affect, soft spoken. SKIN: Warm, dry, Laboratory Results - last 24 hr 03/26/18 03/26/18 03/26/18 23:45 23:45 23:45 WBC 6.7 RBC 3.55 L Hgb 12.3 Hct 33.1 L MCV 93.2 MCH 34.7 H MCHC 37.2 H RDW 13.9 D Plt Count 34 L* MPV 8.5 Absolute Neuts (auto) 4.4 Neutrophils % 65.4 Lymphocytes % 25.9 Monocytes % 7.1 Eosinophils % 0.9 Basophils % 0.7 Nucleated RBC % 0 PT with INR INR Sodium 138 Potassium 2.9 L* Chloride 99 Carbon Dioxide 30 Anion Gap 9 BUN 3 L Creatinine 0.5 L Creat Clearance w eGFR > 60 Random Glucose 139 H Calcium 7.9 L Phosphorus Magnesium Total Bilirubin 4.5 H Direct Bilirubin AST 124 H ALT 62 H Alkaline Phosphatase 127 H Ammonia 57.70 H Total Protein 7.4 Albumin 2.8 L Urine Color Urine Appearance Urine pH Ur Specific [place] Urine Protein Urine Glucose (UA) Urine Ketones Urine Blood Urine Nitrite Urine Bilirubin Urine Urobilinogen Ur Leukocyte Esterase Urine WBC (Auto) Urine RBC (Auto) Ur Epithelial Cells Salicylates < 0.2 L Opiates Screen Methadone Screen Acetaminophen < 0.2 L Barbiturate Screen Phencyclidine Screen Ur Amphetamines Screen MDMA (Ecstasy) Screen Benzodiazepines Screen Cocaine Screen U Marijuana (THC) Screen Alcohol, Quantitative 380.3 H 03/27/18 03/27/18 03/27/18 02:13 02:13 06:00 WBC 6.0 RBC 3.29 L Hgb 11.2 L Hct 31.1 L MCV 94.8 MCH 34.2 H MCHC 36.1 H RDW 14.2 Plt Count 33 L* MPV 8.8 Absolute Neuts (auto) Neutrophils % Lymphocytes % Monocytes % Eosinophils % Basophils % Nucleated RBC % PT with INR INR Sodium Potassium Chloride Carbon Dioxide Anion Gap BUN Creatinine Creat Clearance w eGFR Random Glucose Calcium Phosphorus Magnesium Total Bilirubin Direct Bilirubin AST ALT Alkaline Phosphatase Ammonia Total Protein Albumin Urine Color Yellow Urine Appearance Clear Urine pH 6.0 Ur Specific [place] 1.005 L Urine Protein 2+ H Urine Glucose (UA) Negative Urine Ketones Negative Urine Blood 1+ H Urine Nitrite Negative Urine Bilirubin Negative Urine Urobilinogen 4.0 e.u/dl Ur Leukocyte Esterase Negative Urine WBC (Auto) 1 Urine RBC (Auto) 4 Ur Epithelial Cells Rare Salicylates Opiates Screen Negative Methadone Screen Negative Acetaminophen Barbiturate Screen Negative Phencyclidine Screen Negative Ur Amphetamines Screen Negative MDMA (Ecstasy) Screen Negative Benzodiazepines Screen Negative Cocaine Screen Negative U Marijuana (THC) Screen Negative Alcohol, Quantitative 03/27/18 03/27/18 03/27/18 06:00 06:00 06:00 WBC RBC Hgb Hct MCV MCH MCHC RDW Plt Count MPV Absolute Neuts (auto) Neutrophils % Lymphocytes % Monocytes % Eosinophils % Basophils % Nucleated RBC % PT with INR 20.40 H INR 1.72 H Sodium 140 Potassium 3.2 L Chloride 104 Carbon Dioxide 28 Anion Gap 8 BUN 4 L Creatinine 0.4 L Creat Clearance w eGFR > 60 Random Glucose 111 H Calcium 7.6 L Phosphorus 2.8 Magnesium 1.9 Total Bilirubin 4.5 H Direct Bilirubin 1.8 H AST 120 H ALT 56 Alkaline Phosphatase 113 Ammonia Total Protein 6.8 Albumin 2.6 L Urine Color Urine Appearance Urine pH Ur Specific [place] Urine Protein Urine Glucose (UA) Urine Ketones Urine Blood Urine Nitrite Urine Bilirubin Urine Urobilinogen Ur Leukocyte Esterase Urine WBC (Auto) Urine RBC (Auto) Ur Epithelial Cells Salicylates Opiates Screen Methadone Screen Acetaminophen Barbiturate Screen Phencyclidine Screen Ur Amphetamines Screen MDMA (Ecstasy) Screen Benzodiazepines Screen Cocaine Screen U Marijuana (THC) Screen Alcohol, Quantitative 242.4 H Active Medications Generic Name Dose Route Start Last Admin Trade Name Freq PRN Reason Stop Dose Admin Diazepam 10 mg 03/27/18 03:06 Valium - PO 03/30/18 03:05 Q4H PRN WITHDRAWAL(CONT SUBST) Diazepam 5 mg 03/27/18 22:00 Valium - PO 03/28/18 22:01 TID JAIDEN Diazepam 5 mg 03/29/18 10:00 Valium - PO 03/30/18 22:01 BID JAIDEN Diazepam 5 mg 03/31/18 10:00 Valium - PO 03/31/18 10:01 DAILY [facility] Folic Acid 1 mg 03/27/18 10:00 03/27/18 10:17 Folic Acid - PO 1 mg DAILY [facility] Administration Sodium Chloride 1,000 mls @ 75 mls/hr 03/27/18 14:15 03/27/18 16:14 Normal Saline - IV 75 mls/hr ASDIR [facility] Administration Lactulose 20 gm 03/27/18 10:00 03/27/18 18:06 Cephulac (Oral Use) PO Not Given QID [facility] Nadolol 40 mg 03/27/18 10:00 03/27/18 10:17 Corgard - PO 40 mg DAILY [facility] Administration Pantoprazole Sodium 40 mg 03/27/18 10:00 03/27/18 10:17 Protonix - PO 40 mg DAILY [facility] Administration Rifaximin 550 mg 03/27/18 10:00 03/27/18 10:17 Xifaxan - PO 550 mg BID [facility] Administration Thiamine HCl 100 mg 03/27/18 14:15 03/27/18 16:14 Vitamin B1 - PO 100 mg DAILY [facility] Administration ASSESSMENT/PLAN: Patient is 28 year old male with history of alcohol abuse, alcoholic cirrhosis, esophageal varices, presents after being found by family member intoxicated with uncertain suicide attempt. Alcohol use disorder -Alcohol level 380 at admission -> 242 -Patient currently not in withdrawal -CT head negative for acute intracranial pathology -Banana bag, thiamine, folate -Begin valium protocol -Patient agreeable to go to [facility] for detox Depression, suicidal ideation -Patient has been seen, and cleared by psychiatrist Dr. Davila. Cirrhosis -GI consult (Dr. Harmon) appreciated. -Continue Rifaximin 550mg POBID -Lactulose 20grams PO QID Thrombocytopenia -Chronic, likely secondary to excessive alcohol -Monitor CBC, avoid anticoagulation FEN -Banana Bag, IV NS at 75mL/ hour -Hypokalemia. Follow CMP -Regular diet Prophylaxis -SCDs B/L lower extremities -Protonix 40mg PO daily Disposition -Patient likely to [facility] for detox. Visit type - Emergency Visit Emergency Visit: Yes ED Registration Date: 03/27/18 Care time: The patient presented to the Emergency Department on the above date and was hospitalized for further evaluation of their emergent condition. - New Patient This patient is new to me today: Yes Date on this admission: 03/27/18 - Critical Care Critical Care patient: No - Discharge Referral Referred to [facility] No
[2018-03-27] MEDS: diazePAM 5 MG TABLET PO SCH (22:55)
[2018-03-28] MEDS ORDERED: ONDANSETRON 4 MG/2 ML VIAL IVPUSH PRN (02:04)
[2018-03-28] MEDS ORDERED: ONDANSETRON 4 MG/2 ML VIAL ONE (02:11)
[2018-03-28] MEDS ORDERED: diazePAM 5 MG TABLET ONE (05:47)
[2018-03-28] MEDS: diazePAM 5 MG TABLET PO SCH (05:53)
[2018-03-28 06:11] LABS: HEMATOCRIT 33.7 % (35.4-49); HEMOGLOBIN 11.9 GM/dL (11.7-16.9); MCH 33.5 pg (25.7-33.7); MCHC 35.4 g/dl (32.0-35.9); MEAN CELL VOLUME 94.6 fl (80-96); RBC 3.56 M/mm3 (4.00-5.60); WHITE BLOOD COUNT 4.6 K/mm3 (4.0-10.0)
[2018-03-28 06:32] LABS: PLATELET COUNT 28 K/MM3 (134-434)
[2018-03-28 07:29] LABS: ALBUMIN 2.7 g/dl (3.4-5.0); ALK PHOS 122 U/L (45-117); ANION GAP 7 MMOL/L (8-16); BILIRUBIN,TOTAL 8.9 mg/dL (0.2-1); BLOOD UREA NITROGEN 5 mg/dL (7-18); CALCIUM 8.1 mg/dL (8.5-10.1); CHLORIDE 104 mmol/L (98-107); CO2 24 mmol/L (21-32); CREATININE 0.4 mg/dL (0.55-1.3); GLUCOSE,RANDOM 110 mg/dL (74-106); MAGNESIUM 1.5 mg/dL (1.8-2.4); PHOSPHOROUS 2.6 mg/dL (2.5-4.9); POTASSIUM 3.8 mmol/L (3.5-5.1); SGOT/AST 118 U/L (15-37); SGPT/ALT 56 U/L (13-61); SODIUM 135 mmol/L (136-145)
[2018-03-28] MEDS: LACTULOSE 20 GM/30 ML UDC (FOR ORAL USE ONLY) PO SCH ×4 (10:20→22:44)
[2018-03-28] MEDS: PANTOPRAZOLE 40 MG TABLET (FP) PO SCH (10:21)
[2018-03-28] MEDS: FOLIC ACID 1 MG TABLET (FP) PO SCH (10:21)
[2018-03-28] MEDS: THIAMINE HCL 100 MG TABLET (FP) PO SCH (10:21)
[2018-03-28] MEDS: RIFAXIMIN 550 MG TABLET (UD) PO SCH ×2 (10:21→22:43)
[2018-03-28] MEDS: NADOLOL 40 MG TABLET (FP) PO SCH (10:21)
--- NOTE | 2018-03-28 10:26 | PN ---
Teaching Attending Note Name of Resident: Malena Lisa ATTENDING PHYSICIAN STATEMENT I saw and evaluated the patient. I reviewed the resident's note and discussed the case with the resident. I agree with the resident's findings and plan as documented with exceptions below. SUBJECTIVE: Patient seen and examined. Denies any nausea, vomiting, abdominal pain, diarrhea , progressive abdominal distension or new concerns. OBJECTIVE: Vital Signs Period Temp Pulse Resp BP Sys/Bernard Pulse Ox Last 24 Hr 98.2 F-99 F 80-85 18-20 122-148/56-80 96-99 Intake & Output 03/25/18 03/26/18 03/27/18 03/28/18 23:59 23:59 23:59 23:59 Weight 212 lb General: sitting in chair in no acute distress HEENT: positive icterus Abdomen:Soft, obese, unchanged distension, NT throughout, hepatomegaly Extremities: no edema or tremors. Home Medications Medication Instructions Recorded NK [No Known Home Medication] 02/10/18 Active Medications Diazepam (Valium -) 10 mg PO Q4H PRN PRN Reason: WITHDRAWAL(CONT SUBST) Stop: 03/30/18 03:05 Diazepam (Valium -) 5 mg PO TID [facility] Stop: 03/28/18 22:01 Last Admin: 03/28/18 05:53 Dose: 5 mg Diazepam (Valium -) 5 mg PO BID [facility] Stop: 03/30/18 22:01 Diazepam (Valium -) 5 mg PO DAILY [facility] Stop: 03/31/18 10:01 Folic Acid (Folic Acid -) 1 mg PO DAILY [facility] Last Admin: 03/28/18 10:21 Dose: 1 mg Sodium Chloride (Normal Saline -) 1,000 mls @ 75 mls/hr IV ASDIR [facility] Last Admin: 03/27/18 16:14 Dose: 75 mls/hr Lactulose (Cephulac (Oral Use)) 20 gm PO QID [facility] Last Admin: 03/28/18 10:20 Dose: 20 gm Nadolol (Corgard -) 40 mg PO DAILY [facility] Last Admin: 03/28/18 10:21 Dose: 40 mg Ondansetron HCl (Zofran Injection) 4 mg IVPUSH Q6H PRN PRN Reason: NAUSEA Last Admin: 03/28/18 02:16 Dose: 4 mg Pantoprazole Sodium (Protonix -) 40 mg PO DAILY [facility] Last Admin: 03/28/18 10:21 Dose: 40 mg Rifaximin (Xifaxan -) 550 mg PO BID [facility] Last Admin: 03/28/18 10:21 Dose: 550 mg Thiamine HCl (Vitamin B1 -) 100 mg PO DAILY [facility] Last Admin: 03/28/18 10:21 Dose: 100 mg Laboratory Results - last 24 hr 03/28/18 03/28/18 05:25 05:25 WBC 4.6 RBC 3.56 L Hgb 11.9 Hct 33.7 L MCV 94.6 MCH 33.5 MCHC 35.4 RDW 14.0 Plt Count 28 L* MPV 9.0 Sodium 135 L Potassium 3.8 Chloride 104 Carbon Dioxide 24 Anion Gap 7 L BUN 5 L Creatinine 0.4 L Creat Clearance w eGFR > 60 Random Glucose 110 H Calcium 8.1 L Phosphorus 2.6 Magnesium 1.5 L Total Bilirubin 8.9 H AST 118 H ALT 56 Alkaline Phosphatase 122 H Total Protein 7.0 Albumin 2.7 L ASSESSMENT AND PLAN: 28 yom with PMHx of ETOH abuse, Alcohol cirrhosis with portal hypertension, esophageal varices, multiple admissions for detox brought in by family as found with empty pill bottles and concern for suicidal ideation. -Alcohol abuse -Acute alcohol intoxication -AMS, from ETOH intoxication+/- hepatic encephalopaty, ?Drug OD, r/o head trauma -Child Lyons Class C Alcoholic cirrhosis with portal hypertension?Esophageal varices with decompensation -Chronic thrombocytopenia suspect from alcohol related bone marrow suppression/ Splenomegaly -Depression/?Suicidal ideation Plan: Jv 8.9 today, follow up coags. Abdominal US to assess for ascitis. Discuss with GI about prednisolone and additional imaging. D.c standing benzos and continue valium prn for withdrawal for now. Continue nadolol/protonix/lactulose. Currently AAOx3 and appropriate. CT brain neg for acute process. Psych input noted, off 1:1. Valium prn, no clinical evidence of withdrawal currently, monitor. Detailed counseling on alcohol cessation, concerning liver disease and high risk of mortality. Patient agreable to detox. however will hold off on plan given progressive hepatic decompensation. DVTPPx with SCDs dispo pending clinical improvement. May need transfer to liver center based on clinical progression/GI input. Plan discussed with patient in detail, all questions answered.
[2018-03-28 10:56] LABS: INR 1.75 (0.83-1.09); PROTHROMBIN TIME (PATIENT) 20.8 SEC (9.7-13.0)
--- NOTE | 2018-03-28 12:10 | PN ---
Physical Exam: SUBJECTIVE: Patient seen and examined. No events overnight. Patient offers no complaints. Denies n/v, abdominal pain, diarrhea. OBJECTIVE: Vital Signs Period Temp Pulse Resp BP Sys/Bernard Pulse Ox Last 24 Hr 98.2 F-99 F 80-85 18-20 122-148/56-80 96-99 GENERAL: The patient is awake, alert, and fully oriented, in no acute distress. HEAD: Normal with no signs of trauma. EYES: PERRL, sclera icteric b/l. ENT: oropharynx erythematous, moist mucous membranes. NECK: Trachea midline, full range of motion, supple without lymphadenopathy LUNGS: Breath sounds equal, clear to auscultation bilaterally HEART: RRR, S1, S2 without murmur, rub or gallop. ABDOMEN: Obese. Soft, nontender, nondistended. Hypoactive bowel sounds. No guarding, no rebound tenderness. Hepatosplenomegaly palpated 2cm below right costal margin. EXTREMITIES: 2+ pulses NEUROLOGICAL: Cranial nerves II through XII grossly intact. Laboratory Results - last 24 hr 03/28/18 03/28/18 03/28/18 05:25 05:25 10:29 WBC 4.6 RBC 3.56 L Hgb 11.9 Hct 33.7 L MCV 94.6 MCH 33.5 MCHC 35.4 RDW 14.0 Plt Count 28 L* MPV 9.0 PT with INR 20.80 H INR 1.75 H Sodium 135 L Potassium 3.8 Chloride 104 Carbon Dioxide 24 Anion Gap 7 L BUN 5 L Creatinine 0.4 L Creat Clearance w eGFR > 60 Random Glucose 110 H Calcium 8.1 L Phosphorus 2.6 Magnesium 1.5 L Total Bilirubin 8.9 H Direct Bilirubin AST 118 H ALT 56 Alkaline Phosphatase 122 H Total Protein 7.0 Albumin 2.7 L 03/28/18 10:29 WBC RBC Hgb Hct MCV MCH MCHC RDW Plt Count MPV PT with INR INR Sodium Potassium Chloride Carbon Dioxide Anion Gap BUN Creatinine Creat Clearance w eGFR Random Glucose Calcium Phosphorus Magnesium Total Bilirubin Direct Bilirubin 2.9 H AST ALT Alkaline Phosphatase Total Protein Albumin Active Medications Generic Name Dose Route Start Last Admin Trade Name Freq PRN Reason Stop Dose Admin Diazepam 10 mg 03/27/18 03:06 Valium - PO 03/30/18 03:05 Q4H PRN WITHDRAWAL(CONT SUBST) Folic Acid 1 mg 03/27/18 10:00 03/28/18 10:21 Folic Acid - PO 1 mg DAILY JAIDEN Administration Sodium Chloride 1,000 mls @ 75 mls/hr 03/27/18 14:15 03/27/18 16:14 Normal Saline - IV 75 mls/hr ASDIR JAIDEN Administration Lactulose 20 gm 03/27/18 10:00 03/28/18 10:20 Cephulac (Oral Use) PO 20 gm QID JAIDEN Administration Nadolol 40 mg 03/27/18 10:00 03/28/18 10:21 Corgard - PO 40 mg DAILY JAIDEN Administration Ondansetron HCl 4 mg 03/28/18 02:04 03/28/18 02:16 Zofran Injection IVPUSH 4 mg Q6H PRN Administration NAUSEA Pantoprazole Sodium 40 mg 03/27/18 10:00 03/28/18 10:21 Protonix - PO 40 mg DAILY JAIDEN Administration Rifaximin 550 mg 03/27/18 10:00 03/28/18 10:21 Xifaxan - PO 550 mg BID JAIDEN Administration Thiamine HCl 100 mg 03/27/18 14:15 03/28/18 10:21 Vitamin B1 - PO 100 mg DAILY JAIDEN Administration ASSESSMENT/PLAN: Patient is 28 year old male with history of alcohol abuse, alcoholic cirrhosis, esophageal varices, presents after being found by family member intoxicated with uncertain suicide attempt. Alcohol use disorder -Alcohol level 380 at admission -> 242 -Patient currently not in withdrawal -CT head negative for acute intracranial pathology -thiamine, folate -cont. valium PRN -Patient agreeable to go to [facility] for detox Depression, suicidal ideation -Patient has been seen, and cleared by psychiatrist Dr. Davila. Cirrhosis -GI consult (Dr. Harmon) appreciated. -T bili 4.5 to 8.9 today. Direct Bili 1.8 to 2.9 -Continue Rifaximin 550mg POBID -Lactulose 20grams PO QID -FU abdominal ultrasound -follow up with GI regarding steroids, MRI, or possible transfer to liver center. Thrombocytopenia -Chronic, likely secondary to excessive alcohol -Monitor CBC, avoid anticoagulation FEN -IV NS at 75mL/ hour -monitor lytes -Regular diet Prophylaxis -SCDs B/L lower extremities -Protonix 40mg PO daily Disposition -Discuss with GI regarding possible transfer. If not, patient agreeable for Detox at [facility]. Visit type - Emergency Visit Emergency Visit: Yes ED Registration Date: 03/27/18 Care time: The patient presented to the Emergency Department on the above date and was hospitalized for further evaluation of their emergent condition. - New Patient This patient is new to me today: Yes Date on this admission: 03/28/18 - Critical Care Critical Care patient: No
--- NOTE | 2018-03-28 13:34 | PN ---
GI Progress Note Subjective: patient T bilirubin doubled overnight, denies confusion, no abdominal pain, no fever - Objective Vital Signs: Vital Signs Temperature 99 F 03/28/18 01:41 Pulse Rate 80 03/28/18 10:33 Respiratory Rate 20 03/28/18 10:33 Blood Pressure 138/68 03/28/18 10:33 O2 Sat by Pulse Oximetry (%) 99 03/28/18 10:33 Constitutional: Well Nourished Eyes: Yes: Conjunctiva Clear, Occular Prosthesis Neck: Yes: Trachea Midline Cardiovascular: Yes: Regular Rate and Rhythm Respiratory: Yes: CTA Bilaterally ...Palpate: Yes: Soft. No: Firm/Rigid, Guarding, Hepatomegaly, Mass, Pulsatile Mass, Splenomegaly, Tenderness, Tenderness, Epigastium Labs: CBC, BMP 03/28/18 05:25 03/28/18 05:25 INR, PTT INR 1.75 (0.83-1.09) H 03/28/18 10:29 Hepatic Panel Total Bilirubin 8.9 mg/dL (0.2-1) H 03/28/18 05:25 Direct Bilirubin 2.9 mg/dL (0.0-0.2) H 03/28/18 10:29 AST 118 U/L (15-37) H 03/28/18 05:25 ALT 56 U/L (13-61) 03/28/18 05:25 Alkaline Phosphatase 122 U/L (45-117) H 03/28/18 05:25 Albumin 2.7 g/dl (3.4-5.0) L 03/28/18 05:25 Problem List - Problems (1) Alcohol abuse Code(s): F10.10 - ALCOHOL ABUSE, UNCOMPLICATED (2) Liver cirrhosis, alcoholic Code(s): K70.30 - ALCOHOLIC CIRRHOSIS OF LIVER WITHOUT ASCITES Qualifiers: Ascites presence: unspecified Qualified Code(s): K70.30 - Alcoholic cirrhosis of liver without ascites (3) Thrombocytopenia Code(s): D69.6 - THROMBOCYTOPENIA, UNSPECIFIED (4) Alcohol withdrawal Code(s): F10.239 - ALCOHOL DEPENDENCE WITH WITHDRAWAL, UNSPECIFIED Qualifiers: Complication of substance-induced condition: uncomplicated Qualified Code(s ): F10.230 - Alcohol dependence with withdrawal, uncomplicated (5) Prolonged Q-T interval on ECG Code(s): R94.31 - ABNORMAL ELECTROCARDIOGRAM [ECG] [EKG] (6) Soft tissue lesion of knee region Code(s): M79.89 - OTHER SPECIFIED SOFT TISSUE DISORDERS (7) Alcoholic gastritis Code(s): K29.20 - ALCOHOLIC GASTRITIS WITHOUT BLEEDING Qualifiers: Chronicity: unspecified Gastritis bleeding: presence of bleeding unspecified Qualified Code(s): K29.20 - Alcoholic gastritis without bleeding (8) Dehydration Code(s): E86.0 - DEHYDRATION (9) HTN (hypertension) Code(s): I10 - ESSENTIAL (PRIMARY) HYPERTENSION Qualifiers: Hypertension type: essential hypertension Qualified Code(s): I10 - Essential (primary) hypertension (10) Depression Code(s): F32.9 - MAJOR DEPRESSIVE DISORDER, SINGLE EPISODE, UNSPECIFIED Qualifiers: Depression Type: unspecified Qualified Code(s): F32.9 - Major depressive disorder, single episode, unspecified (11) Alcohol dependence with uncomplicated withdrawal Code(s): F10.230 - ALCOHOL DEPENDENCE WITH WITHDRAWAL, UNCOMPLICATED (12) Alcoholic hepatitis Assessment/Plan: R> no evidence of encephalopathy continue supportive care check abdominal ultrasound Code(s): K70.10 - ALCOHOLIC HEPATITIS WITHOUT ASCITES
[2018-03-28] MEDS: diazePAM 5 MG TABLET PO PRN ×2 (16:54→22:46)
[2018-03-28] MEDS: SODIUM CHLORIDE 1,000 ML IV SCH (22:43)
[2018-03-29 08:17] LABS: INR 1.89 (0.83-1.09); PROTHROMBIN TIME (PATIENT) 22.5 SEC (9.7-13.0)
[2018-03-29 08:21] LABS: ACTIVATED PTT 34.9 SECONDS (25.2-36.5)
[2018-03-29 08:38] LABS: BASO % 0.9 % (0-2.0); EOS % 3.8 % (0-4.5); HEMATOCRIT 30.6 % (35.4-49); HEMOGLOBIN 11.3 GM/dL (11.7-16.9); LYMPH % 33.3 % (8-40); MCH 35.1 pg (25.7-33.7); MCHC 36.9 g/dl (32.0-35.9); MEAN CELL VOLUME 95.2 fl (80-96); MONO % 7.8 % (3.8-10.2); NEUT % 54.2 % (42.8-82.8); RBC 3.22 M/mm3 (4.00-5.60); RDW 14.4 % (11.9-15.9); WHITE BLOOD COUNT 3.2 K/mm3 (4.0-10.0)
[2018-03-29 08:50] LABS: ALBUMIN 2.4 g/dl (3.4-5.0); ALK PHOS 109 U/L (45-117); ANION GAP 7 MMOL/L (8-16); BILIRUBIN,TOTAL 7.5 mg/dL (0.2-1); BLOOD UREA NITROGEN 5 mg/dL (7-18); CHLORIDE 106 mmol/L (98-107); CO2 24 mmol/L (21-32); CREATININE 0.4 mg/dL (0.55-1.3); GLUCOSE,RANDOM 99 mg/dL (74-106); MAGNESIUM 1.7 mg/dL (1.8-2.4); PHOSPHOROUS 3.3 mg/dL (2.5-4.9); POTASSIUM 3.8 mmol/L (3.5-5.1); SGOT/AST 83 U/L (15-37); SGPT/ALT 48 U/L (13-61); SODIUM 137 mmol/L (136-145); TOT PROT 6.4 g/dl (6.4-8.2)
[2018-03-29 08:51] LABS: PLATELET COUNT 32 K/MM3 (134-434)
[2018-03-29] MEDS ORDERED: diazePAM 5 MG TABLET PO SCH ×2 (10:00)
[2018-03-29] MEDS ORDERED: NADOLOL 20 MG TABLET (FP) ONE (10:11)
[2018-03-29] MEDS: THIAMINE HCL 100 MG TABLET (FP) PO SCH (10:14)
[2018-03-29] MEDS: PANTOPRAZOLE 40 MG TABLET (FP) PO SCH (10:14)
[2018-03-29] MEDS: FOLIC ACID 1 MG TABLET (FP) PO SCH (10:14)
[2018-03-29] MEDS: LACTULOSE 20 GM/30 ML UDC (FOR ORAL USE ONLY) PO SCH ×4 (10:14→22:26)
[2018-03-29] MEDS: NADOLOL 40 MG TABLET (FP) PO SCH (10:15)
[2018-03-29] MEDS ORDERED: PT OWN MED DRAWER 7, Y5N ONE (10:19)
[2018-03-29] MEDS: RIFAXIMIN 550 MG TABLET (UD) PO SCH ×2 (10:22→22:28)
[2018-03-29] MEDS: SODIUM CHLORIDE 1,000 ML IV SCH (10:22)
--- NOTE | 2018-03-29 11:17 | PN ---
Physical Exam: SUBJECTIVE: Patient seen and examined, overall feels well, no nausea, vomiting, abdominal pain, tremors, dark or bloody stools. OBJECTIVE: Vital Signs Period Temp Pulse Resp BP Sys/Bernard Pulse Ox Last 24 Hr 98.9 F-99.9 F 81-85 18-20 130-135/69-78 99 GENERAL: The patient is awake, alert, and fully oriented, in no acute distress. HEAD: Normal with no signs of trauma. EYES: PERRL, extraocular movements intact, sclera icteric, conjunctiva clear. No ptosis. ENT: Ears normal, nares patent, oropharynx clear without exudates, moist mucous membranes. NECK: Trachea midline, full range of motion, supple. LUNGS: Breath sounds equal, clear to auscultation bilaterally, no wheezes, no crackles, no accessory muscle use. HEART: Regular rate and rhythm, S1, S2 ABDOMEN: Soft, obese nontender, nondistended, normoactive bowel sounds, no guarding, no rebound, hepatomegaly unchanged EXTREMITIES: 2+ pulses, warm, well-perfused, no edema. NEUROLOGICAL: Cranial nerves II through XII grossly intact. Normal speech, gait not observed. no asterexis or tremors noted PSYCH: Normal mood, normal affect. SKIN: Warm, dry, normal turgor, no rashes or lesions noted Laboratory Results - last 24 hr 03/29/18 03/29/18 03/29/18 06:20 06:20 06:20 WBC 3.2 L RBC 3.22 L Hgb 11.3 L Hct 30.6 L MCV 95.2 MCH 35.1 H MCHC 36.9 H RDW 14.4 Plt Count 32 L* MPV 9.0 Absolute Neuts (auto) 1.7 Neutrophils % 54.2 Lymphocytes % 33.3 D Monocytes % 7.8 Eosinophils % 3.8 D Basophils % 0.9 Nucleated RBC % 0 PT with INR 22.50 H INR 1.89 H PTT (Actin FS) 34.9 Sodium 137 Potassium 3.8 Chloride 106 Carbon Dioxide 24 Anion Gap 7 L BUN 5 L Creatinine 0.4 L Creat Clearance w eGFR > 60 Random Glucose 99 Calcium 8.0 L Phosphorus 3.3 Magnesium 1.7 L Total Bilirubin 7.5 H AST 83 H ALT 48 Alkaline Phosphatase 109 Total Protein 6.4 Albumin 2.4 L Active Medications Generic Name Dose Route Start Last Admin Trade Name Freq PRN Reason Stop Dose Admin Diazepam 10 mg 03/27/18 03:06 03/28/18 22:46 Valium - PO 03/30/18 03:05 10 mg Q4H PRN Administration WITHDRAWAL(CONT SUBST) Folic Acid 1 mg 03/27/18 10:00 03/29/18 10:14 Folic Acid - PO 1 mg DAILY JAIDEN Administration Sodium Chloride 1,000 mls @ 75 mls/hr 03/27/18 14:15 03/29/18 10:22 Normal Saline - IV 75 mls/hr ASDIR JAIDEN Administration Lactulose 20 gm 03/27/18 10:00 03/29/18 10:14 Cephulac (Oral Use) PO 20 gm QID JAIDEN Administration Nadolol 40 mg 03/27/18 10:00 03/29/18 10:15 Corgard - PO 40 mg DAILY JAIDEN Administration Ondansetron HCl 4 mg 03/28/18 02:04 03/28/18 02:16 Zofran Injection IVPUSH 4 mg Q6H PRN Administration NAUSEA Pantoprazole Sodium 40 mg 03/27/18 10:00 03/29/18 10:14 Protonix - PO 40 mg DAILY JAIDEN Administration Rifaximin 550 mg 03/27/18 10:00 03/29/18 10:22 Xifaxan - PO 550 mg BID JAIDEN Administration Thiamine HCl 100 mg 03/27/18 14:15 03/29/18 10:14 Vitamin B1 - PO 100 mg DAILY JAIDEN Administration MRI abdomen results pending ASSESSMENT/PLAN: 28 yom with PMHx of ETOH abuse, Alcohol cirrhosis with portal hypertension, esophageal varices, multiple admissions for detox brought in by family as found with empty pill bottles and concern for suicidal ideation. -Alcohol abuse -Acute alcohol intoxication -AMS, from ETOH intoxication+/- hepatic encephalopaty, ?Drug OD, r/o head trauma -Child Lyons Class C Alcoholic cirrhosis with portal hypertension?Esophageal varices with decompensation -Chronic thrombocytopenia suspect from alcohol related bone marrow suppression/ Splenomegaly -Depression/?Suicidal ideation Plan: Jv with some improvement, coags noted. Abdominal US neg for ascitis no evidence of hep encephalopathy Follow up MRI results. Discuss with GI about prednisolone Avoid standing benzos. Continue nadolol/protonix/lactulose. Currently AAOx3 and appropriate. CT brain neg for acute process. Psych input noted, off 1:1. Valium prn, no clinical evidence of withdrawal currently, monitor. Detailed counseling on alcohol cessation, concerning liver disease and high risk of mortality. Patient agreable to detox. however will hold off on plan given progressive hepatic decompensation. DVTPPx with SCDs dispo pending clinical improvement. Plan discussed with patient in detail, all questions answered. Visit type - Emergency Visit Emergency Visit: Yes ED Registration Date: 03/27/18 Care time: The patient presented to the Emergency Department on the above date and was hospitalized for further evaluation of their emergent condition. - New Patient This patient is new to me today: No - Critical Care Critical Care patient: No - Discharge Referral Referred to [facility] No
[2018-03-29] MEDS ORDERED: diazePAM 5 MG TABLET PO PRN (11:23)
--- NOTE | 2018-03-30 07:56 | PN ---
Physical Exam: SUBJECTIVE: Patient seen and examined at bedside this morning. Endorses five soft, formed bowel movements overnight. Denies any new, acute complaints. Denies headaches, lightheadedness, dizziness, changes in vision, abdominal pain , nausea, vomiting. Denies tactile, auditory, or visual hallucinations. Denies anxiety, agitation. OBJECTIVE: Vital Signs Period Temp Pulse Resp BP Sys/Bernard Pulse Ox Last 24 Hr 98.3 F-99.5 F 78-87 20-20 128-141/66-76 99-99 GENERAL: The patient is awake, alert, and fully oriented, in no acute distress. HEAD: Normal with no signs of trauma. EYES: PERRL, extraocular movements intact, sclera icteric b/l, improving. ENT: Ears normal, nares patent, oropharynx erythematous, moist mucous membranes. NECK: Trachea midline, full range of motion, supple without lymphadenopathy LUNGS: Breath sounds equal, clear to auscultation bilaterally, no wheezes, no crackles, no accessory muscle use. HEART: Regular rate and rhythm, S1, S2 without murmur, rub or gallop. ABDOMEN: Obese. Soft, nontender, nondistended. Normoactive bowel sounds. No guarding, no rebound tenderness. Hepatosplenomegaly palpated 2cm below right costal margin. EXTREMITIES: 2+ radial and dorsalis pedis pulses b/l. Warm, well-perfused, no edema. NEUROLOGICAL: Cranial nerves II through XII grossly intact. No tremors. No asterixis. Strength 5/5 b/l upper and lower extremities. PSYCH: mood and affect appropriate upon my encounter today. SKIN: Warm, dry. Laboratory Results - last 24 hr 03/29/18 03/29/18 03/29/18 06:20 06:20 06:20 WBC 3.2 L RBC 3.22 L Hgb 11.3 L Hct 30.6 L MCV 95.2 MCH 35.1 H MCHC 36.9 H RDW 14.4 Plt Count 32 L* MPV 9.0 Absolute Neuts (auto) 1.7 Neutrophils % 54.2 Lymphocytes % 33.3 D Monocytes % 7.8 Eosinophils % 3.8 D Basophils % 0.9 Nucleated RBC % 0 PT with INR 22.50 H INR 1.89 H PTT (Actin FS) 34.9 Sodium 137 Potassium 3.8 Chloride 106 Carbon Dioxide 24 Anion Gap 7 L BUN 5 L Creatinine 0.4 L Creat Clearance w eGFR > 60 Random Glucose 99 Calcium 8.0 L Phosphorus 3.3 Magnesium 1.7 L Total Bilirubin 7.5 H AST 83 H ALT 48 Alkaline Phosphatase 109 Total Protein 6.4 Albumin 2.4 L Active Medications Generic Name Dose Route Start Last Admin Trade Name Freq PRN Reason Stop Dose Admin Folic Acid 1 mg 03/27/18 10:00 03/29/18 10:14 Folic Acid - PO 1 mg DAILY JAIDEN Administration Lactulose 20 gm 03/27/18 10:00 03/29/18 22:26 Cephulac (Oral Use) PO Not Given QID JAIDEN Nadolol 40 mg 03/27/18 10:00 03/29/18 10:15 Corgard - PO 40 mg DAILY JAIDEN Administration Ondansetron HCl 4 mg 03/28/18 02:04 03/28/18 02:16 Zofran Injection IVPUSH 4 mg Q6H PRN Administration NAUSEA Pantoprazole Sodium 40 mg 03/27/18 10:00 03/29/18 10:14 Protonix - PO 40 mg DAILY JAIDEN Administration Rifaximin 550 mg 03/27/18 10:00 03/29/18 22:28 Xifaxan - PO 550 mg BID JAIDEN Administration Thiamine HCl 100 mg 03/27/18 14:15 03/29/18 10:14 Vitamin B1 - PO 100 mg DAILY JAIDEN Administration ASSESSMENT/PLAN: Patient is 28 year old male with history of alcohol abuse, alcoholic cirrhosis, esophageal varices, presents after being found by family member intoxicated with uncertain suicide attempt. Alcohol use disorder -Alcohol level 380 at admission -> 242 -Patient currently not in withdrawal -CT head negative for acute intracranial pathology -Banana bag, thiamine, folate -Valium 10mg PO Q4H PRN -Patient agreeable to go to [facility] for detox Depression, suicidal ideation -Patient has been seen, and cleared by psychiatrist Dr. Davila. -1:1 discontinued Cirrhosis -GI consult (Dr. Harmon) appreciated. -Total Bilirubin 4.5 (admission) -> 8.9 -> 7.5 -> 5.7 -Direct Bilirubin 1.8 (admission) -> 2.9 -> 2.0 -Transaminases downtrending, however PT/INR trending up -Continue Rifaximin 550mg POBID -Lactulose 20grams PO QID -Nadolol 40mg PO daily -Abdominal US negative for ascites. No focal liver lesions noted. -MRI abdomen show liver cirrhosis, splenomegaly, and periesophageal, perigastric, and peripancreatic varices. -F/U GI consult (Dr. Harmon) regarding initiating steroids. Thrombocytopenia -Chronic, likely secondary to excessive alcohol -Monitor CBC, avoid anticoagulation FEN -No IV fluids indicated at this time. -Follow CMP -Regular diet Prophylaxis -SCDs B/L lower extremities -Protonix 40mg PO daily Disposition -Patient for transfer to [facility] for detox. Visit type - Emergency Visit Emergency Visit: Yes ED Registration Date: 03/27/18 Care time: The patient presented to the Emergency Department on the above date and was hospitalized for further evaluation of their emergent condition. - New Patient This patient is new to me today: No - Critical Care Critical Care patient: No - Discharge Referral Referred to [facility] No
[2018-03-30 08:31] LABS: BASO % 0.6 % (0-2.0); EOS % 4.6 % (0-4.5); HEMATOCRIT 31.6 % (35.4-49); HEMOGLOBIN 10.9 GM/dL (11.7-16.9); LYMPH % 40.1 % (8-40); MCH 33.6 pg (25.7-33.7); MCHC 34.7 g/dl (32.0-35.9); MEAN PLT VOLUME 8.8 fl (7.5-11.1); MONO % 10.5 % (3.8-10.2); NEUT % 44.2 % (42.8-82.8); RBC 3.26 M/mm3 (4.00-5.60); RDW 14.5 % (11.9-15.9); WHITE BLOOD COUNT 3.5 K/mm3 (4.0-10.0)
[2018-03-30 08:36] LABS: PLATELET COUNT 33 K/MM3 (134-434)
--- NOTE | 2018-03-30 08:39 | PN ---
Teaching Attending Note Name of Resident: Cy Ventura ATTENDING PHYSICIAN STATEMENT I saw and evaluated the patient. I reviewed the resident's note and discussed the case with the resident. I agree with the resident's findings and plan as documented with exceptions below. SUBJECTIVE: Patient seen and examined. Denies any nausea, vomiting, abdominal pain, dyspnea , dark or bloody stools. Reports multiple BM from lactulose yesterday. OBJECTIVE: Vital Signs Period Temp Pulse Resp BP Sys/Bernard Pulse Ox Last 24 Hr 98.3 F-99.5 F 78-87 20-20 128-141/66-76 99-99 Intake & Output 03/27/18 03/28/18 03/29/18 03/30/18 23:59 23:59 23:59 23:59 Intake Total 550 1525 100 Balance 550 1525 100 General; sitting in chair in no acute distress Chest: CTAB, no rales or wheezing Abdomen: soft, obese, NT throughout, hepatomegaly, no voluntary or involuntary guarding or rigidity Extremities: no edema or asterexis noted Active Medications Folic Acid (Folic Acid -) 1 mg PO DAILY [facility] Last Admin: 03/29/18 10:14 Dose: 1 mg Lactulose (Cephulac (Oral Use)) 20 gm PO QID [facility] Last Admin: 03/29/18 22:26 Dose: Not Given Nadolol (Corgard -) 40 mg PO DAILY [facility] Last Admin: 03/29/18 10:15 Dose: 40 mg Ondansetron HCl (Zofran Injection) 4 mg IVPUSH Q6H PRN PRN Reason: NAUSEA Last Admin: 03/28/18 02:16 Dose: 4 mg Pantoprazole Sodium (Protonix -) 40 mg PO DAILY [facility] Last Admin: 03/29/18 10:14 Dose: 40 mg Rifaximin (Xifaxan -) 550 mg PO BID [facility] Last Admin: 03/29/18 22:28 Dose: 550 mg Thiamine HCl (Vitamin B1 -) 100 mg PO DAILY [facility] Last Admin: 03/29/18 10:14 Dose: 100 mg Laboratory Results - last 24 hr 03/29/18 03/29/18 03/30/18 06:20 06:20 07:00 WBC 3.2 L 3.5 L RBC 3.22 L 3.26 L Hgb 11.3 L 10.9 L Hct 30.6 L 31.6 L MCV 95.2 97.0 H MCH 35.1 H 33.6 MCHC 36.9 H 34.7 RDW 14.4 14.5 Plt Count 32 L* 33 L* MPV 9.0 8.8 Absolute Neuts (auto) 1.7 1.5 Neutrophils % 54.2 44.2 Lymphocytes % 33.3 D 40.1 H D Monocytes % 7.8 10.5 H Eosinophils % 3.8 D 4.6 H Basophils % 0.9 0.6 Nucleated RBC % 0 0 Sodium 137 Potassium 3.8 Chloride 106 Carbon Dioxide 24 Anion Gap 7 L BUN 5 L Creatinine 0.4 L Creat Clearance w eGFR > 60 Random Glucose 99 Calcium 8.0 L Phosphorus 3.3 Magnesium 1.7 L Total Bilirubin 7.5 H AST 83 H ALT 48 Alkaline Phosphatase 109 Total Protein 6.4 Albumin 2.4 L MRI abdomen results noted ASSESSMENT AND PLAN: 28 yom with PMHx of ETOH abuse, Alcohol cirrhosis with portal hypertension, esophageal varices, multiple admissions for detox brought in by family as found with empty pill bottles and concern for suicidal ideation, found with decompensated cirrhosis/Alcohol hepatitis. -Alcohol abuse -Acute alcohol intoxication -AMS, from ETOH intoxication+/- hepatic encephalopaty, ?Drug OD, r/o head trauma -Child Lyons Class C Alcoholic cirrhosis with portal hypertension?Esophageal varices with decompensation -Chronic thrombocytopenia suspect from alcohol related bone marrow suppression/ Splenomegaly -Depression/?Suicidal ideation Plan: Coags noted, follow up LFTs. Discuss with GI about steroids/pentoxyfylline. Abdominal US neg for ascitis no evidence of hep encephalopathy MRI abdomen results noted. Avoid standing benzos. Continue nadolol/protonix/lactulose. Currently AAOx3 and appropriate. CT brain neg for acute process. Psych input noted, off 1:1. Valium prn, no clinical evidence of withdrawal currently, monitor. Detailed counseling on alcohol cessation, concerning liver disease and high risk of mortality. Patient agreable to detox. however will hold off on plan given hepatic decompensation. DVTPPx with SCDs dispo pending clinical improvement. Plan discussed with patient in detail, all questions answered.
[2018-03-30 09:26] LABS: INR 2.03 (0.83-1.09); PROTHROMBIN TIME (PATIENT) 24.1 SEC (9.7-13.0)
[2018-03-30 09:28] LABS: ACTIVATED PTT 32.9 SECONDS (25.2-36.5)
[2018-03-30 09:42] LABS: ANION GAP 8 MMOL/L (8-16); BLOOD UREA NITROGEN 6 mg/dL (7-18); CALCIUM 7.8 mg/dL (8.5-10.1); CHLORIDE 108 mmol/L (98-107); CO2 22 mmol/L (21-32); CREATININE 0.4 mg/dL (0.55-1.3); GLUCOSE,RANDOM 86 mg/dL (74-106); MAGNESIUM 1.7 mg/dL (1.8-2.4); PHOSPHOROUS 4.3 mg/dL (2.5-4.9); POTASSIUM 3.5 mmol/L (3.5-5.1); SODIUM 138 mmol/L (136-145)
[2018-03-30] MEDS ORDERED: NADOLOL 20 MG TABLET (FP) ONE (10:00)
[2018-03-30] MEDS: FOLIC ACID 1 MG TABLET (FP) PO SCH (10:15)
[2018-03-30] MEDS: NADOLOL 40 MG TABLET (FP) PO SCH (10:15)
[2018-03-30] MEDS: THIAMINE HCL 100 MG TABLET (FP) PO SCH (10:15)
[2018-03-30] MEDS: PANTOPRAZOLE 40 MG TABLET (FP) PO SCH (10:15)
[2018-03-30] MEDS: RIFAXIMIN 550 MG TABLET (UD) PO SCH ×2 (10:15→21:57)
[2018-03-30] MEDS: LACTULOSE 20 GM/30 ML UDC (FOR ORAL USE ONLY) PO SCH ×4 (10:16→21:57)
[2018-03-30 13:07] LABS: ALBUMIN 2.5 g/dl (3.4-5.0); ALK PHOS 116 U/L (45-117); BILIRUBIN,TOTAL 5.7 mg/dL (0.2-1); SGOT/AST 67 U/L (15-37); SGPT/ALT 41 U/L (13-61); TOT PROT 6.5 g/dl (6.4-8.2)
[2018-03-30] MEDS ORDERED: diazePAM 5 MG TABLET PO PRN (19:24)
[2018-03-31 07:40] LABS: BASO % 0.5 % (0-2.0); EOS % 4.8 % (0-4.5); HEMATOCRIT 32.4 % (35.4-49); HEMOGLOBIN 11.2 GM/dL (11.7-16.9); MCH 33.8 pg (25.7-33.7); MCHC 34.6 g/dl (32.0-35.9); MEAN CELL VOLUME 97.7 fl (80-96); MEAN PLT VOLUME 8.5 fl (7.5-11.1); MONO % 9.4 % (3.8-10.2); NEUT % 44.3 % (42.8-82.8); RBC 3.32 M/mm3 (4.00-5.60); RDW 14.5 % (11.9-15.9); WHITE BLOOD COUNT 3.4 K/mm3 (4.0-10.0)
[2018-03-31 08:07] LABS: ALBUMIN 2.6 g/dl (3.4-5.0); ALK PHOS 129 U/L (45-117); ANION GAP 7 MMOL/L (8-16); BILIRUBIN,DIRECT 1.8 mg/dL (0.0-0.2); BILIRUBIN,TOTAL 4.8 mg/dL (0.2-1); BLOOD UREA NITROGEN 7 mg/dL (7-18); CALCIUM 8.3 mg/dL (8.5-10.1); CHLORIDE 106 mmol/L (98-107); CO2 24 mmol/L (21-32); CREATININE 0.4 mg/dL (0.55-1.3); GLUCOSE,RANDOM 98 mg/dL (74-106); MAGNESIUM 1.8 mg/dL (1.8-2.4); PHOSPHOROUS 4.6 mg/dL (2.5-4.9); POTASSIUM 3.8 mmol/L (3.5-5.1); SGOT/AST 57 U/L (15-37); SGPT/ALT 42 U/L (13-61); SODIUM 137 mmol/L (136-145); TOT PROT 6.8 g/dl (6.4-8.2)
[2018-03-31 08:15] LABS: INR 1.89 (0.83-1.09); PROTHROMBIN TIME (PATIENT) 22.5 SEC (9.7-13.0)
[2018-03-31 08:18] LABS: ACTIVATED PTT 35.6 SECONDS (25.2-36.5)
[2018-03-31 08:34] LABS: PLATELET COUNT 35 K/MM3 (134-434)
[2018-03-31] MEDS ORDERED: NADOLOL 20 MG TABLET (FP) ONE (08:56)
[2018-03-31] MEDS ORDERED: PT OWN MED DRAWER 7, Y5N ONE ×2 (08:57→20:39)
[2018-03-31] MEDS: NADOLOL 40 MG TABLET (FP) PO SCH (09:09)
[2018-03-31] MEDS: LACTULOSE 20 GM/30 ML UDC (FOR ORAL USE ONLY) PO SCH ×4 (09:09→21:19)
[2018-03-31] MEDS: THIAMINE HCL 100 MG TABLET (FP) PO SCH (09:13)
[2018-03-31] MEDS: PANTOPRAZOLE 40 MG TABLET (FP) PO SCH (09:13)
[2018-03-31] MEDS: FOLIC ACID 1 MG TABLET (FP) PO SCH (09:13)
[2018-03-31] MEDS: RIFAXIMIN 550 MG TABLET (UD) PO SCH ×2 (09:13→21:19)
[2018-03-31] MEDS ORDERED: diazePAM 5 MG TABLET PO SCH ×2 (10:00)
--- NOTE | 2018-03-31 14:09 | PN ---
Progress Note, Physician History of Present Illness: 28 yom with PMHx of ETOH abuse, Alcohol cirrhosis with portal hypertension, esophageal varices, multiple admissions for detox brought in by family as found with empty pill bottles and concern for suicidal ideation - Current Medication List Current Medications: Active Medications Diazepam (Valium -) 10 mg PO Q4H PRN PRN Reason: WITHDRAWAL(CONT SUBST) Stop: 04/02/18 19:24 Folic Acid (Folic Acid -) 1 mg PO DAILY [facility] Last Admin: 03/31/18 09:13 Dose: 1 mg Lactulose (Cephulac (Oral Use)) 20 gm PO QID [facility] Last Admin: 03/31/18 09:09 Dose: 20 gm Nadolol (Corgard -) 40 mg PO DAILY [facility] Last Admin: 03/31/18 09:09 Dose: 40 mg Ondansetron HCl (Zofran Injection) 4 mg IVPUSH Q6H PRN PRN Reason: NAUSEA Last Admin: 03/28/18 02:16 Dose: 4 mg Pantoprazole Sodium (Protonix -) 40 mg PO DAILY [facility] Last Admin: 03/31/18 09:13 Dose: 40 mg Rifaximin (Xifaxan -) 550 mg PO BID [facility] Last Admin: 03/31/18 09:13 Dose: 550 mg Thiamine HCl (Vitamin B1 -) 100 mg PO DAILY [facility] Last Admin: 03/31/18 09:13 Dose: 100 mg - Objective Vital Signs: Vital Signs Temperature 98.2 F 03/31/18 09:00 Pulse Rate 94 H 03/31/18 09:00 Respiratory Rate 18 03/31/18 09:00 Blood Pressure 146/69 03/31/18 09:00 O2 Sat by Pulse Oximetry (%) 99 03/30/18 21:00 Constitutional: Yes: Well Nourished, No Distress, Calm, Obese Eyes: Yes: WNL, Conjunctiva Clear, EOM Intact, Sclera Icterus HENT: Yes: WNL, Atraumatic, Normocephalic Neck: Yes: WNL, Supple, Trachea Midline Cardiovascular: Yes: WNL, Regular Rate and Rhythm, S1, S2 Respiratory: Yes: WNL, Regular, CTA Bilaterally Gastrointestinal: Yes: WNL, Normal Bowel Sounds, Soft Labs: CBC, BMP 03/31/18 06:00 03/31/18 06:00 INR, PTT INR 1.89 (0.83-1.09) H 03/31/18 06:00 Problem List - Problems (1) Alcohol abuse Code(s): F10.10 - ALCOHOL ABUSE, UNCOMPLICATED (2) Alcoholic hepatitis Code(s): K70.10 - ALCOHOLIC HEPATITIS WITHOUT ASCITES (3) Hepatic encephalopathy Code(s): K72.90 - HEPATIC FAILURE, UNSPECIFIED WITHOUT COMA (4) Liver cirrhosis, alcoholic Code(s): K70.30 - ALCOHOLIC CIRRHOSIS OF LIVER WITHOUT ASCITES Qualifiers: Ascites presence: unspecified Qualified Code(s): K70.30 - Alcoholic cirrhosis of liver without ascites (5) Thrombocytopenia Code(s): D69.6 - THROMBOCYTOPENIA, UNSPECIFIED (6) Abnormal finding on urinalysis Code(s): R82.90 - UNSPECIFIED ABNORMAL FINDINGS IN URINE Assessment/Plan - acute alcoholic hepatitis: - Jv 8.9 today, follow up coags. - -Alcohol abuse - patient is to be sent to detox - prn doses of lorazepam d/c diazepam due to liver hepatitis - Detailed counseling on alcohol cessation, concerning liver disease and high risk of mortality. Patient agreable to detox. -Acute alcohol intoxication - resolved Liver cirrhosis: Child Lyons Class C Alcoholic cirrhosis with portal hypertension?Esophageal varices with decompensation Abdominal US to assess for ascitis. iscuss with GI about prednisolone and additional imaging. Continue nadolol/protonix/lactulose. -Chronic thrombocytopenia suspect from alcohol related bone marrow suppression/ Splenomegaly -Depression/?Suicidal ideation Plan: DVT PPx with SCDs dispo pending clinical improvement. May need transfer to liver center based on clinical progression/GI input. Plan discussed with patient in detail, all questions answered.
[2018-03-31] MEDS ORDERED: LORazepam 2 MG/ML SDV VIAL IVPUSH PRN (14:13)
[2018-04-01] MEDS ORDERED: NADOLOL 20 MG TABLET (FP) ONE (09:53)
[2018-04-01] MEDS ORDERED: PT OWN MED DRAWER 7, Y5N ONE (09:54)
[2018-04-01] MEDS: PANTOPRAZOLE 40 MG TABLET (FP) PO SCH (09:56)
[2018-04-01] MEDS: LACTULOSE 20 GM/30 ML UDC (FOR ORAL USE ONLY) PO SCH ×2 (09:56→13:53)
[2018-04-01] MEDS: FOLIC ACID 1 MG TABLET (FP) PO SCH (09:56)
[2018-04-01] MEDS: RIFAXIMIN 550 MG TABLET (UD) PO SCH (09:56)
[2018-04-01] MEDS: THIAMINE HCL 100 MG TABLET (FP) PO SCH (09:56)
[2018-04-01] MEDS: NADOLOL 40 MG TABLET (FP) PO SCH (09:57)
[2018-04-01 10:03] LABS: PROTHROMBIN TIME (PATIENT) 23.8 SEC (9.7-13.0)
[2018-04-01 10:26] LABS: BASO % 0.6 % (0-2.0); EOS % 3.5 % (0-4.5); HEMATOCRIT 32.1 % (35.4-49); HEMOGLOBIN 11.6 GM/dL (11.7-16.9); LYMPH % 31.9 % (8-40); MCH 35.4 pg (25.7-33.7); MCHC 36.2 g/dl (32.0-35.9); MEAN CELL VOLUME 97.8 fl (80-96); MEAN PLT VOLUME 8.8 fl (7.5-11.1); MONO % 12.6 % (3.8-10.2); NEUT % 51.4 % (42.8-82.8); PLATELET COUNT 40 K/MM3 (134-434); RDW 14.7 % (11.9-15.9); WHITE BLOOD COUNT 4.6 K/mm3 (4.0-10.0)
[2018-04-01 10:27] LABS: ALBUMIN 2.6 g/dl (3.4-5.0); ALK PHOS 160 U/L (45-117); ANION GAP 6 MMOL/L (8-16); BILIRUBIN,TOTAL 4.1 mg/dL (0.2-1); BLOOD UREA NITROGEN 7 mg/dL (7-18); CHLORIDE 105 mmol/L (98-107); CO2 23 mmol/L (21-32); CREATININE 0.5 mg/dL (0.55-1.3); GLUCOSE,RANDOM 158 mg/dL (74-106); MAGNESIUM 1.8 mg/dL (1.8-2.4); PHOSPHOROUS 3.4 mg/dL (2.5-4.9); POTASSIUM 4.3 mmol/L (3.5-5.1); SGOT/AST 44 U/L (15-37); SGPT/ALT 38 U/L (13-61); SODIUM 134 mmol/L (136-145)
[2018-04-01 10:29] LABS: RBC 3.28 M/mm3 (4.00-5.60)
[2018-04-01 14:23] VITALS: BP 133/76; PULSE 97; TEMP 98.5
--- NOTE | 2018-04-01 14:52 | PN ---
Teaching Attending Note Name of Resident: Cy Ventura ATTENDING PHYSICIAN STATEMENT I saw and evaluated the patient. I reviewed the resident's note and discussed the case with the resident. I agree with the resident's findings and plan as documented. SUBJECTIVE: Patient says he feels much better. OBJECTIVE: Vital Signs Period Temp Pulse Resp BP Sys/Bernard Pulse Ox Last 24 Hr 98.2 F-99.9 F 86-106 18-20 129-148/59-81 96-96 HEENT: (+) scleral icterus HEART: S1S2, RRR LUNGS: Clear ABDOMEN: Obese, soft, non-tender, non-distended, normal BS EXTREMITIES: No edema Laboratory Results - last 24 hr 04/01/18 04/01/18 04/01/18 09:05 09:05 09:05 WBC 4.6 RBC 3.28 L Hgb 11.6 L Hct 32.1 L MCV 97.8 H MCH 35.4 H MCHC 36.2 H RDW 14.7 Plt Count 40 L MPV 8.8 Absolute Neuts (auto) 2.3 Neutrophils % 51.4 Lymphocytes % 31.9 D Monocytes % 12.6 H Eosinophils % 3.5 Basophils % 0.6 Nucleated RBC % 0 PT with INR 23.80 H INR 2.00 H Sodium 134 L Potassium 4.3 Chloride 105 Carbon Dioxide 23 Anion Gap 6 L BUN 7 Creatinine 0.5 L Creat Clearance w eGFR > 60 Random Glucose 158 H Calcium 8.0 L Phosphorus 3.4 Magnesium 1.8 Total Bilirubin 4.1 H AST 44 H ALT 38 Alkaline Phosphatase 160 H Total Protein 7.0 Albumin 2.6 L Current Medications Generic Name Dose Route Start Last Admin Trade Name Freq PRN Reason Stop Dose Admin Folic Acid 1 mg 03/27/18 10:00 04/01/18 09:56 Folic Acid - PO 1 mg DAILY JAIDEN Administration Lactulose 20 gm 03/27/18 10:00 04/01/18 13:53 Cephulac (Oral Use) PO 20 gm QID JAIDEN Administration Lorazepam 1 mg 03/31/18 14:13 Ativan Injection - IVPUSH TID PRN ANXIETY Nadolol 40 mg 03/27/18 10:00 04/01/18 09:57 Corgard - PO 40 mg DAILY JAIDEN Administration Ondansetron HCl 4 mg 03/28/18 02:04 03/28/18 02:16 Zofran Injection IVPUSH 4 mg Q6H PRN Administration NAUSEA Pantoprazole Sodium 40 mg 03/27/18 10:00 04/01/18 09:56 Protonix - PO 40 mg DAILY JAIDEN Administration Rifaximin 550 mg 03/27/18 10:00 04/01/18 09:56 Xifaxan - PO 550 mg BID JAIDEN Administration Thiamine HCl 100 mg 03/27/18 14:15 04/01/18 09:56 Vitamin B1 - PO 100 mg DAILY JAIDEN Administration ASSESSMENT AND PLAN: This is a 28 year old man with a history of alcohol abuse, alcoholic cirrhosis, esophageal varices who presented to the ED because family was concerned he might try to hurt himself when they found pills in his room. 1. Alcohol intoxication -Resolved 2. Hepatic encephalopathy - Resolved 3. Acute alcoholic hepatitis - Transaminases, bilirubin improving 4. Continuous alcohol abuse - Continue thiamine, folic acid 5. Alcoholic cirrhosis with esophageal varices - Continue Rifaximin, Corgard, Lactulose 6. Depression 7. HTN 8. Thrombocytopenia - Stable 9. Obesity with BMI 38.8 10. Disposition - Discharge home with outpatient alcohol rehab, follow up with GI, PCP
--- NOTE | 2018-04-01 16:12 | DS ---
Physical Exam: SUBJECTIVE: Patient seen and examined at bedside this morning. He endorses two soft, formed bowel movements overnight. Denies any new, acute complaints. Denies headaches, lightheadedness, dizziness, changes in vision, abdominal pain , nausea, vomiting. Denies tactile, auditory, or visual hallucinations. Denies anxiety, agitation. Patient expresses desire to go home to spend time with family, before going to rehab. OBJECTIVE: Vital Signs Period Temp Pulse Resp BP Sys/Bernard Pulse Ox Last 24 Hr 98.2 F-99.9 F 86-106 18-20 129-148/59-81 96-96 PHYSICAL EXAM GENERAL: The patient is awake, alert, and fully oriented, in no acute distress. HEAD: Normal with no signs of trauma. EYES: PERRL, extraocular movements intact, sclera anicteric b/l ENT: Ears normal, nares patent, oropharynx erythematous, moist mucous membranes. NECK: Trachea midline, full range of motion, supple without lymphadenopathy LUNGS: Breath sounds equal, clear to auscultation bilaterally, no wheezes, no crackles, no accessory muscle use. HEART: Regular rate and rhythm, S1, S2 without murmur, rub or gallop. ABDOMEN: Obese. Soft, nontender, nondistended. Normoactive bowel sounds. No guarding, no rebound tenderness. Hepatosplenomegaly palpated 2cm below right costal margin. EXTREMITIES: 2+ radial and dorsalis pedis pulses b/l. Warm, well-perfused, no edema. NEUROLOGICAL: Cranial nerves II through XII grossly intact. No tremors. No asterixis. Strength 5/5 b/l upper and lower extremities. PSYCH: mood and affect appropriate upon my encounter today. SKIN: Warm, dry. LABS Laboratory Results - last 24 hr 04/01/18 04/01/18 04/01/18 09:05 09:05 09:05 WBC 4.6 RBC 3.28 L Hgb 11.6 L Hct 32.1 L MCV 97.8 H MCH 35.4 H MCHC 36.2 H RDW 14.7 Plt Count 40 L MPV 8.8 Absolute Neuts (auto) 2.3 Neutrophils % 51.4 Lymphocytes % 31.9 D Monocytes % 12.6 H Eosinophils % 3.5 Basophils % 0.6 Nucleated RBC % 0 PT with INR 23.80 H INR 2.00 H Sodium 134 L Potassium 4.3 Chloride 105 Carbon Dioxide 23 Anion Gap 6 L BUN 7 Creatinine 0.5 L Creat Clearance w eGFR > 60 Random Glucose 158 H Calcium 8.0 L Phosphorus 3.4 Magnesium 1.8 Total Bilirubin 4.1 H AST 44 H ALT 38 Alkaline Phosphatase 160 H Total Protein 7.0 Albumin 2.6 L HOSPITAL COURSE: Date of Admission:03/27/18 Date of Discharge: 04/01/18 Patient is 28 year old male with history of alcohol abuse, alcoholic cirrhosis, esophageal varices, presented after being found by family member intoxicated with uncertain suicide attempt. Patient was placed on one to one observation. Alcohol level on admission was 380, patient showed no signs of withdrawal. CT head negative for acute intracranial pathology. Patient was started on Banana bag, Thiamine, Folate. Patient was evaluated by psychiatry, who cleared patient , and one to one observation was discontinued. Patient was started on Valuim as needed for withdrawal symptoms. Patients total and direct bilirubin was noted to be elevated, while transaminases trended down. Rifaximin, Lactulose and Nadolol initiated. Patient was evaluated by GI. Abdominal US negative for ascites. No focal liver lesions noted. MRI abdomen showed liver cirrhosis, splenomegaly, and paraesophageal, perigastric, and peripancreatic varices. Patient was evaluated by GI. After discussion with GI, patient was cleared for discharge, with follow up as outpatient, with instruction to abstain from alcohol. Patient expressed desire to go home to spend time with family, before starting outpatient alcohol rehab. Patient was discharged home and counselled to refrain from drinking alcohol, and discussed importance of following up outpatient alcohol rehab. Discharged with follow up to primary care physician, and GI. Discharged on Folic Acid, Thiamine, Lactulose, Nadolol, Rifaximin, Protonix. Minutes to complete discharge: 35 Discharge Summary Reason For Visit: THROMBOCYTOPENIA/HEPATIC ENCEPHALOPATHY Current Active Problems Alcohol abuse (Acute) Alcoholic hepatitis (Acute) Hepatic encephalopathy (Acute) Hypokalemia (Acute) Liver cirrhosis, alcoholic (Chronic) Thrombocytopenia (Chronic) Condition: Stable - Instructions Diet, Activity, Other Instructions: You were admitted to the hospital after being found on the floor after heavy drinking. You were seen by the psychiatrist who has cleared you for discharge You were observed, and provided medication to reduce withdrawal symptoms You were also evaluated by the Train Gate Attendant (Dr. Harmon) as your liver numbers were elevated. You will follow up with Dr. Harmon as an outpatient. It is strongly advised that you abstain from drinking alcohol. Please participate at an outpatient Alcohol Detox facility. You may walk-in at any time to [facility] facility. You will begin taking the following medications: Rifaximin 550mg every 12 hours Nadolol 40mg daily Pantoprazole 40mg daily Thiamine 100mg daily Folic Acid 1mg daily Lactulose 20grams every 6 hours. Adjust dose to achieve 2-3 soft bowel movements per day. Follow up with your primary care physician within 2-3 days after discharge. A referral for Dr. Tomas/ Dr. Ventura has been provided for you. Follow up with Train Gate Attendant (Dr. Harmon) within one week after discharge. Return to the nearest Emergency Department if worsening symptoms, fevers, chills , shortness of breath, chest pain, palpitations, abdominal pain, nausea, vomiting, diarrhea, painful urination, blood within the urine. Referrals: Trenton Tomas MD [Staff Physician] - 04/03/18 Samy Harmon MD [Staff Physician] - 04/03/18 Disposition: HOME - Home Medications Comprehensive Discharge Medication List: Ambulatory Orders Folic Acid - 1 mg PO DAILY 30 Days #30 tablet 04/01/18 Lactulose (Oral Use) [Cephulac -] 20 gm PO QID 30 Days #120 udc 04/01/18 Nadolol [Corgard -] 40 mg PO DAILY 30 Days #30 tablet 04/01/18 Pantoprazole Sodium [Protonix -] 40 mg PO DAILY 30 Days #30 tablet.ec 04/01/18 Rifaximin [Xifaxan -] 550 mg PO BID 30 Days #60 tablet 04/01/18 Thiamine HCl [Vitamin B1 -] 100 mg PO DAILY 30 Days #30 tablet 04/01/18 This patient is new to me today: No Emergency Visit: Yes ED Registration Date: 03/27/18 Care time: The patient presented to the Emergency Department on the above date and was hospitalized for further evaluation of their emergent condition. Critical Care patient: No - Discharge Referral Referred to [facility] No
== END 2018-04-01 15:40 | disposition home or self-care (01) | DRG 775 ==
LOC: JER 22:10 → JERBED 03-27 01:02 → J7W 03-28 10:47
PROVIDERS: ADMIT Internal Medicine; ATTEND Internal Medicine
PROC: HZ2ZZZZ Detoxification Services for Substance Abuse Treatment (ICD-10-PCS; principal; 2018-03-27)
DX: F10.129 Alcohol abuse with intoxication, unspecified (principal); Y90.8 Blood alcohol level of 240 mg/100 ml or more; E66.9 Obesity, unspecified; Z68.38 Body mass index [BMI] 38.0-38.9, adult; E87.6 Hypokalemia; D69.6 Thrombocytopenia, unspecified; K70.30 Alcoholic cirrhosis of liver without ascites; D73.2 Chronic congestive splenomegaly; I85.00 Esophageal varices without bleeding; I86.4 Gastric varices; K72.00 Acute and subacute hepatic failure without coma; I10 Essential (primary) hypertension; E88.09 Other disorders of plasma-protein metabolism, not elsewhere classified; F32.9 Major depressive disorder, single episode, unspecified
CPT/HCPCS: 36415; 70450-TC; 74181-TC; 76700-TC; 80048; 80053; 80076; 80307; 81003; 81015; 82140; 82248; 83735; 84100; 85025; 85027; 85610; 85730; 87081; 93005; 93010; 97116-GP; 97161-GP; 99285-25; J7030

== ENCOUNTER 2018-04-23 18:10 | Inpatient (IN) | payer SELFPAY ==
[2018-04-23 18:25] VITALS: BMI 45.3
--- NOTE | 2018-04-23 20:03 | HP ---
CIWA Score Nausea/Vomitin-Mild Nausea/No Vomiting Muscle Tremors: 1-None Visible, but [place] Anxiety: 3 Agitation: 3 Paroxysmal Sweats: 1-Minimal Palms Moist Orientation: 0-Oriented Tacttile Disturbances: 0-None Auditory Disturbances: 0-None Visual Disturbances: 0-None Headache: 0-None Present CIWA-Ar Total Score: 9 - Admission Criteria [facility] Guidelines: Admission for Medically Managed Detox: Requires at least one of the followin. CIWA greater than 12 2. Seizures within the past 24 hours 3. Delirium tremens within the past 24 hours 4. Hallucinations within the past 24 hours 5. Acute intervention needed for co occurring medical disorder 6. Acute intervention needed for co occurring psychiatric disorder 7. Severe withdrawal that cannot be handled at a lower level of care (continued vomiting, continued diarrhea, abnormal vital signs) requiring intravenous medication and/or fluids 8. Admission ROS [facility] Chief Complaint: C/O WITHDRAWAL SX'S. SEEKING DETOX Allergies/Adverse Reactions: Allergies Allergy/AdvReac Type Severity Reaction Status Date / Time No Known Allergies Allergy Verified 04/23/18 19:32 History of Present Illness: 28 Y.O. MALE WITH HX/O ALCOHOLISM HERE FOR DETOX TXMENT. KNOWN TO THIS PROGRAM, HE IS SELF REFERRED TODAY. RECENTLY HOSPITALIZED FOR LIVER PROBLEMS 3 WEEKS AGO. HAS SINCE RELAPSED SINCE IN. PRESENTS WITH WORSENING WITHDRAWAL SX'S, CIWA 12 AND ELEVATED B/P. CLIENT STATES NEVER DX BUT HAS HX WHEN HE ABSTAINS FROM DRINKING. REPORTS LONGEST CLEAN TIME 6 MONTHS. DENIES ANY SIGNIFICANT CLEAN TIME IN THE PAST YEAR. DENIES SI/HI, AVH, SEIZURE, BLACK OUTS. LIVES W/ FAMILY, EMPLOYED, DENIES LEGALS. PMHX- LIVER CIRRHOSIS, ALCOHOL INDUCED HTN PSYCH- DENIES Exam Limitations: No Limitations - Ebola screening Have you traveled outside of the country in the last 21 days: No (N) Have you had contact with anyone from an Ebola affected area: No Have you been sick,other than usual withdrawal symptoms: No Do you have a fever: No - Review of Systems Constitutional: Changes in sleep EENT: reports: No Symptoms Reported, Other (CONTACTS) Respiratory: reports: No Symptoms reported Cardiac: reports: No Symptoms Reported GI: reports: Poor Appetite, Poor Fluid Intake : reports: No Symptoms Reported Musculoskeletal: reports: No Symptoms Reported Integumentary: reports: No Symptoms Reported Neuro: reports: No Symptoms reported Endocrine: reports: No Symptoms Reported Hematology: reports: No Symptoms Reported Psychiatric: reports: Anxious Other Systems: Reviewed and Negative Patient History - Patient Medical History Hx Anemia: No Hx Asthma: No Hx Chronic Obstructive Pulmonary Disease (COPD): No Hx Cancer: No Hx Cardiac Disorders: No Hx Congestive Heart Failure: No Hx Hypertension: Yes (Alcohol induced, not on meds) Hx Hypercholesterolemia: No Hx Pacemaker: No HX Cerebrovascular Accident: No Hx Seizures: No Hx Dementia: No Hx Diabetes: No Hx Gastrointestinal Disorders: Yes (GERD) Hx Liver Disease: Yes (Cirrhosis) Hx Genitourinary Disorders: No Hx Sexually Transmitted Disorders: No Hx Renal Disease (ESRD): No Hx Thyroid Disease: No Hx Human Immunodeficiency Virus (HIV): No Hx Hepatitis C: No Hx Depression: No Hx Suicide Attempt: No Hx Bipolar Disorder: No Hx Schizophrenia: No - Patient Surgical History Past Surgical History: No Hx Neurologic Surgery: No Hx Cataract Extraction: No Hx Cardiac Surgery: No Hx Lung Surgery: No Hx Breast Surgery: No Hx Breast Biopsy: No Hx Abdominal Surgery: No Hx Appendectomy: No Hx Cholecystectomy: No Hx Genitourinary Surgery: No Hx Section: No Hx Orthopedic Surgery: No Hx Hysterectomy: No Anesthesia Reaction: No - PPD History Previous Implant?: Yes Documented Results: Negative w/proof Implanted On Prior [facility] Admission?: No Date: 07/25/17 Results: NEGATIVE PPD to be Administered?: No - Smoking Cessation Smoking history: Never smoked Have you smoked in the past 12 months: No Aproximately how many cigarettes per day: 0 Cigars Per Day: 0 Hx Chewing Tobacco Use: No Initiated information on smoking cessation: No - Substance & Tx. History Hx Alcohol Use: Yes Substance Use Type: Alcohol Hx Substance Use Treatment: Yes ([facility]) - Substances Abused Alcohol Route: Oral Frequency: 3-6 times per week Amount used: 3 24 [employer] Age of first use: 15 Date of Last Use: 04/23/18 Family Disease History - Family Disease History Family Disease History: Diabetes: Grandparent, Other: Father (ALCOHOLISM, ) Admission Physical Exam BHS - Vital Signs Vital Signs: Vital Signs - 24 hr 04/23/18 18:24 Temperature 98.3 F Pulse Rate 113 H Respiratory 18 Rate Blood Pressure 162/83 - Physical General Appearance: Yes: Appropriately Dressed, Alcohol on Breath, Obese, Tremorous (FELT), Sweating (MOIST PALMS), Anxious HEENTM: Yes: EOMI, Normocephalic, Normal Voice, PELON, Pharynx Normal, Scleral Ictenus R, Scleral Ictenus L Respiratory: Yes: Chest Non-Tender, Lungs Clear, Normal Breath Sounds, No Respiratory Distress, No Accessory Muscle Use Neck: Yes: No masses,lesions,Nodules, Supple, Trachea in good position Breast: Yes: Other (GYNECOMASTIA) Cardiology: Yes: Regular Rhythm, Regular Rate, S1, S2 Abdominal: Yes: Normal Bowel Sounds, Non Tender, Protuberent Genitourinary: Yes: Other (NO C/O OFFERED) Back: Yes: Normal Inspection Musculoskeletal: Yes: full range of Motion, Gait Steady Extremities: Yes: Normal Capillary Refill, Normal Range of Motion, Non-Tender, Tremors (FELT) Neurological: Yes: Fully Oriented, Alert, Motor Strength 5/5, Depressed Affect Integumentary: Yes: Dry, Warm, Jaundice, Other (MOIST PALMS) Lymphatic: Yes: Within Normal Limits - Diagnostic (1) Depressed affect Current Visit: Yes Status: Suspected (2) At risk for dehydration due to poor fluid intake Current Visit: Yes Status: Acute (3) HTN (hypertension) Current Visit: Yes Status: Chronic Qualifiers: Hypertension type: unspecified Qualified Code(s): I10 - Essential (primary ) hypertension (4) Jaundice Current Visit: Yes Status: Chronic (5) Liver cirrhosis, alcoholic Current Visit: Yes Status: Chronic Qualifiers: Ascites presence: unspecified Qualified Code(s): K70.30 - Alcoholic cirrhosis of liver without ascites (6) Alcohol dependence with uncomplicated withdrawal Current Visit: Yes Status: Acute Cleared for Admission [facility] - Detox or Rehab [facility] Level of Care: Medically Managed Detox Regimen/Protocol: Librium Claeared for Rehab Admission: No [facility] Breath Alcohol Content Breath Alcohol Content: 0.321 Urine Drug Screen - Results Drug Screen Negative: No Urine Drug Screen Results: BZO-Benzodiazepines
[2018-04-23] MEDS ORDERED: LOPERAMIDE HCL 2 MG CAPSULE PO PRN (20:23)
[2018-04-23] MEDS ORDERED: MENTHOL/PHENOL 1 EACH UD MM PRN (20:23)
[2018-04-23] MEDS ORDERED: hydrOXYzine PAMOATE 50 MG CAPSULE (FP) PO PRN (20:23)
[2018-04-23] MEDS ORDERED: IBUPROFEN 400 MG TABLET (FP) PO PRN (20:23)
[2018-04-23] MEDS ORDERED: MAG HYDROX/AL HYDROX/SIMETH 30 ML UNIT-DOSE CUP PO PRN (20:23)
[2018-04-23] MEDS ORDERED: MAGNESIUM CITRATE 300 ML BOTTLE PO PRN (20:23)
[2018-04-23] MEDS ORDERED: P-EPHED 60MG/TRIPROLIDI 2.5MG TABLET PO PRN (20:23)
[2018-04-23] MEDS ORDERED: guaiFENesin/D-METHORPHAN HB 10 ML UNIT-DOSE CUPS PO PRN (20:23)
[2018-04-23] MEDS ORDERED: MAGNESIUM HYDROX 2400MG/30ML ORAL SUSPENSION 30 ML CUP PO PRN (20:23)
[2018-04-23] MEDS: chlordiazePOXIDE HCL 25 MG CAPSULE PO PRN (20:53)
[2018-04-23] MEDS: THIAMINE HCL 100 MG TABLET (FP) PO SCH (22:18)
[2018-04-23] MEDS: chlordiazePOXIDE HCL 25 MG CAPSULE PO SCH (22:18)
[2018-04-23] MEDS: MELATONIN 5 MG TABLETS PO PRN (23:03)
[2018-04-23 23:05] LABS: URINE APPEARANCE CLEAR; URINE BILIRUBIN NEGATIVE (<2.0 mg/dL); URINE COLOR AMBER; URINE GLUCOSE (UA) NEGATIVE (NEGATIVE); URINE KETONE NEGATIVE (NEGATIVE); URINE LEUK ESTERASE NEGATIVE (NEGATIVE); URINE NITRITE NEGATIVE (NEGATIVE); URINE PROTEIN 2+ (NEGATIVE); URINE UROBILINOGEN 4.0 E.U/dl mg/dL (0.2-1.0)
[2018-04-23 23:12] LABS: EPI CELLS RARE /HPF (FEW); URINE MUCUS FEW
[2018-04-24] MEDS ORDERED: ONDANSETRON *ODT* 4 MG TABLET SL PRN (01:10)
[2018-04-24] MEDS: chlordiazePOXIDE HCL 25 MG CAPSULE PO PRN ×2 (02:11→09:07)
[2018-04-24] MEDS: chlordiazePOXIDE HCL 25 MG CAPSULE PO SCH ×4 (05:55→22:05)
[2018-04-24 10:03] LABS: HEMOGLOBIN 11.9 GM/dL (11.7-16.9); MCH 34.7 pg (25.7-33.7); MCHC 36.1 g/dl (32.0-35.9); MEAN CELL VOLUME 96.1 fl (80-96); MEAN PLT VOLUME 8.9 fl (7.5-11.1); RBC 3.43 M/mm3 (4.00-5.60); RDW 14.2 % (11.9-15.9); WHITE BLOOD COUNT 4.6 K/mm3 (4.0-10.0)
[2018-04-24 10:08] LABS: PLATELET COUNT 30 K/MM3 (134-434)
[2018-04-24] MEDS: PRENATAL VITAMINS W/ FOLIC ACID TABLET (FP) PO SCH (10:12)
[2018-04-24 10:15] LABS: ALBUMIN 2.9 g/dl (3.4-5.0); ALK PHOS 164 U/L (45-117); ANION GAP 9 MMOL/L (8-16); BILIRUBIN,TOTAL 3.3 mg/dL (0.2-1); BLOOD UREA NITROGEN 3 mg/dL (7-18); CALCIUM 7.8 mg/dL (8.5-10.1); CHLORIDE 103 mmol/L (98-107); CO2 27 mmol/L (21-32); CREATININE 0.5 mg/dL (0.55-1.3); GLUCOSE,RANDOM 113 mg/dL (74-106); POTASSIUM 3.4 mmol/L (3.5-5.1); SGOT/AST 102 U/L (15-37); SGPT/ALT 41 U/L (13-61); SODIUM 139 mmol/L (136-145); TOT PROT 7.1 g/dl (6.4-8.2)
--- NOTE | 2018-04-24 11:41 | PN ---
S CIWA - CIWA Score Nausea/Vomitin-No Nausea/No Vomiting Muscle Tremors: 3 Anxiety: 3 Agitation: 3 Paroxysmal Sweats: 3 Orientation: 0-Oriented Tacttile Disturbances: 0-None Auditory Disturbances: 0-None Visual Disturbances: 0-None Headache: 0-None Present CIWA-Ar Total Score: 12 BHS Progress Note (SOAP) Subjective: sweats shakes interrupted sleep body aches agitation Objective: 04/24/18 11:40 Vital Signs Temp 98.2 F 04/24/18 09:53 Pulse 108 H 04/24/18 09:53 Resp 18 04/24/18 09:53 BP 159/82 04/24/18 09:53 Pulse Ox Laboratory Tests 04/23/18 04/24/18 04/24/18 21:41 07:00 08:32 WBC 4.6 RBC 3.43 L Hgb 11.9 Hct 33.0 L MCV 96.1 H MCH 34.7 H MCHC 36.1 H RDW 14.2 Plt Count 30 L* D MPV 8.9 Sodium 139 Potassium 3.4 L Chloride 103 Carbon Dioxide 27 Anion Gap 9 BUN 3 L Creatinine 0.5 L Creat Clearance w eGFR > 60 Random Glucose 113 H Calcium 7.8 L Total Bilirubin 3.3 H AST 102 H ALT 41 Alkaline Phosphatase 164 H Total Protein 7.1 Albumin 2.9 L Urine Color Tracey Urine Appearance Clear Urine pH 6.0 Ur Specific [place] 1.010 Urine Protein 2+ H Urine Glucose (UA) Negative Urine Ketones Negative Urine Blood 1+ H Urine Nitrite Negative Urine Bilirubin Negative Urine Urobilinogen 4.0 e.u/dl Ur Leukocyte Esterase Negative Urine WBC (Auto) 1 Urine RBC (Auto) 4 Ur Epithelial Cells Rare Urine Mucus Few labs noted [id number] 4days ordered labs repeated ordered Assessment: 04/24/18 11:41 withdrawal sx Plan: continue detox increase fluids f/u with repeated labs
[2018-04-24] MEDS: POTASSIUM CHLORIDE TABS 20 MEQ TABLET.ER (FP) PO SCH (12:15)
[2018-04-24] MEDS: THIAMINE HCL 100 MG TABLET (FP) PO SCH (22:05)
[2018-04-24] MEDS: MELATONIN 5 MG TABLETS PO PRN (22:06)
[2018-04-25] MEDS: chlordiazePOXIDE HCL 25 MG CAPSULE PO SCH ×2 (05:43→10:51)
--- NOTE | 2018-04-25 10:48 | PN ---
S CIWA - CIWA Score Nausea/Vomitin-Mild Nausea/No Vomiting Muscle Tremors: 2 Anxiety: 2 Agitation: 2 Paroxysmal Sweats: 2 Orientation: 0-Oriented Tacttile Disturbances: 2-Mild Itch/Numbness/Burn Auditory Disturbances: 1-Very Mild Visual Disturbances: 0-None Headache: 1-Very Mild CIWA-Ar Total Score: 13 S Progress Note (SOAP) Subjective: Interrupted sleep, generalized aches and mild abdominal cramps Objective: 04/25/18 10:44 Vital Signs - 8 hr 04/25/18 04/25/18 04/25/18 03:30 08:16 09:43 Temperature 98.4 F 98.1 F Pulse Rate 87 91 H Respiratory 18 18 18 Rate Blood Pressure 166/85 147/76 Laboratory Last Values WBC 4.6 K/mm3 (4.0-10.0) 04/24/18 08:32 RBC 3.43 M/mm3 (4.00-5.60) L 04/24/18 08:32 Hgb 11.9 GM/dL (11.7-16.9) 04/24/18 08:32 Hct 33.0 % (35.4-49) L 04/24/18 08:32 MCV 96.1 fl (80-96) H 04/24/18 08:32 MCH 34.7 pg (25.7-33.7) H 04/24/18 08:32 MCHC 36.1 g/dl (32.0-35.9) H 04/24/18 08:32 RDW 14.2 % (11.9-15.9) 04/24/18 08:32 Plt Count 30 K/MM3 (134-434) L* D 04/24/18 08:32 MPV 8.9 fl (7.5-11.1) 04/24/18 08:32 Sodium 139 mmol/L (136-145) 04/24/18 07:00 Potassium 3.4 mmol/L (3.5-5.1) L 04/24/18 07:00 Chloride 103 mmol/L (98-107) 04/24/18 07:00 Carbon Dioxide 27 mmol/L (21-32) 04/24/18 07:00 Anion Gap 9 MMOL/L (8-16) 04/24/18 07:00 BUN 3 mg/dL (7-18) L 04/24/18 07:00 Creatinine 0.5 mg/dL (0.55-1.3) L 04/24/18 07:00 Creat Clearance w eGFR > 60 (>60) 04/24/18 07:00 Random Glucose 113 mg/dL (74-106) H 04/24/18 07:00 Calcium 7.8 mg/dL (8.5-10.1) L 04/24/18 07:00 Total Bilirubin 3.3 mg/dL (0.2-1) H 04/24/18 07:00 AST 102 U/L (15-37) H 04/24/18 07:00 ALT 41 U/L (13-61) 04/24/18 07:00 Alkaline Phosphatase 164 U/L (45-117) H 04/24/18 07:00 Total Protein 7.1 g/dl (6.4-8.2) 04/24/18 07:00 Albumin 2.9 g/dl (3.4-5.0) L 04/24/18 07:00 Urine Color Tracey 04/23/18 21:41 Urine Appearance Clear 04/23/18 21:41 Urine pH 6.0 (5.0-8.0) 04/23/18 21:41 Ur Specific Hazel 1.010 (1.010-1.035) 04/23/18 21:41 Urine Protein 2+ (NEGATIVE) H 04/23/18 21:41 Urine Glucose (UA) Negative (NEGATIVE) 04/23/18 21:41 Urine Ketones Negative (NEGATIVE) 04/23/18 21:41 Urine Blood 1+ (NEGATIVE) H 04/23/18 21:41 Urine Nitrite Negative (NEGATIVE) 04/23/18 21:41 Urine Bilirubin Negative (<2.0 mg/dL) 04/23/18 21:41 Urine Urobilinogen 4.0 e.u/dl mg/dL (0.2-1.0) 04/23/18 21:41 Ur Leukocyte Esterase Negative (NEGATIVE) 04/23/18 21:41 Urine WBC (Auto) 1 /hpf (3-5) 04/23/18 21:41 Urine RBC (Auto) 4 /hpf (0-3) 04/23/18 21:41 Ur Epithelial Cells Rare /HPF (FEW) 04/23/18 21:41 Urine Mucus Few 04/23/18 21:41 RPR Titer Nonreactive (NONREACTIVE) 04/24/18 07:00 Labs noted, abnormal values noted Assessment: 04/25/18 10:45 Withdrawal sx Thrombocytopenia Hypokalemia Plan: Continue detox Monitor for signs of bleeding Continue potassium supplement Repeat labs ordered for 04/26
[2018-04-25] MEDS: PRENATAL VITAMINS W/ FOLIC ACID TABLET (FP) PO SCH (10:51)
[2018-04-25] MEDS: POTASSIUM CHLORIDE TABS 20 MEQ TABLET.ER (FP) PO SCH (10:51)
[2018-04-25 13:19] VITALS: BP 133/74; PULSE 101; TEMP 97.9
--- NOTE | 2018-04-25 14:48 | DS ---
[facility] Detox Discharge Summary Admission Date: 04/23/18 Discharge Date: 04/25/18 - History Present History: Alcohol Dependence Pertinent Past History: Alcohol induced cirrhosis, thrombocytopenia, alcohol induced hypertension, GERD - Physical Exam Results Vital Signs: Vital Signs Temperature 97.9 F 04/25/18 13:18 Pulse Rate 101 H 04/25/18 13:18 Respiratory Rate 18 04/25/18 13:18 Blood Pressure 133/74 04/25/18 13:18 O2 Sat by Pulse Oximetry (%) Pertinent Admission Physical Exam Findings: Withdrawal sx Laboratory Last Values WBC 4.6 K/mm3 (4.0-10.0) 04/24/18 08:32 RBC 3.43 M/mm3 (4.00-5.60) L 04/24/18 08:32 Hgb 11.9 GM/dL (11.7-16.9) 04/24/18 08:32 Hct 33.0 % (35.4-49) L 04/24/18 08:32 MCV 96.1 fl (80-96) H 04/24/18 08:32 MCH 34.7 pg (25.7-33.7) H 04/24/18 08:32 MCHC 36.1 g/dl (32.0-35.9) H 04/24/18 08:32 RDW 14.2 % (11.9-15.9) 04/24/18 08:32 Plt Count 30 K/MM3 (134-434) L* D 04/24/18 08:32 MPV 8.9 fl (7.5-11.1) 04/24/18 08:32 Sodium 139 mmol/L (136-145) 04/24/18 07:00 Potassium 3.4 mmol/L (3.5-5.1) L 04/24/18 07:00 Chloride 103 mmol/L (98-107) 04/24/18 07:00 Carbon Dioxide 27 mmol/L (21-32) 04/24/18 07:00 Anion Gap 9 MMOL/L (8-16) 04/24/18 07:00 BUN 3 mg/dL (7-18) L 04/24/18 07:00 Creatinine 0.5 mg/dL (0.55-1.3) L 04/24/18 07:00 Creat Clearance w eGFR > 60 (>60) 04/24/18 07:00 Random Glucose 113 mg/dL (74-106) H 04/24/18 07:00 Calcium 7.8 mg/dL (8.5-10.1) L 04/24/18 07:00 Total Bilirubin 3.3 mg/dL (0.2-1) H 04/24/18 07:00 AST 102 U/L (15-37) H 04/24/18 07:00 ALT 41 U/L (13-61) 04/24/18 07:00 Alkaline Phosphatase 164 U/L (45-117) H 04/24/18 07:00 Total Protein 7.1 g/dl (6.4-8.2) 04/24/18 07:00 Albumin 2.9 g/dl (3.4-5.0) L 04/24/18 07:00 Urine Color Tracey 04/23/18 21:41 Urine Appearance Clear 04/23/18 21:41 Urine pH 6.0 (5.0-8.0) 04/23/18 21:41 Ur Specific [place] 1.010 (1.010-1.035) 04/23/18 21:41 Urine Protein 2+ (NEGATIVE) H 04/23/18 21:41 Urine Glucose (UA) Negative (NEGATIVE) 04/23/18 21:41 Urine Ketones Negative (NEGATIVE) 04/23/18 21:41 Urine Blood 1+ (NEGATIVE) H 04/23/18 21:41 Urine Nitrite Negative (NEGATIVE) 04/23/18 21:41 Urine Bilirubin Negative (<2.0 mg/dL) 04/23/18 21:41 Urine Urobilinogen 4.0 e.u/dl mg/dL (0.2-1.0) 04/23/18 21:41 Ur Leukocyte Esterase Negative (NEGATIVE) 04/23/18 21:41 Urine WBC (Auto) 1 /hpf (3-5) 04/23/18 21:41 Urine RBC (Auto) 4 /hpf (0-3) 04/23/18 21:41 Ur Epithelial Cells Rare /HPF (FEW) 04/23/18 21:41 Urine Mucus Few 04/23/18 21:41 RPR Titer Nonreactive (NONREACTIVE) 04/24/18 07:00 Labs noted with abnormal values - Medication Discharge Medications: Ambulatory Orders Folic Acid - 1 mg PO DAILY 30 Days #30 tablet 04/01/18 Lactulose (Oral Use) [Cephulac -] 20 gm PO QID 30 Days #120 udc 04/01/18 Nadolol [Corgard -] 40 mg PO DAILY 30 Days #30 tablet 04/01/18 Pantoprazole Sodium [Protonix -] 40 mg PO DAILY 30 Days #30 tablet.ec 04/01/18 Rifaximin [Xifaxan -] 550 mg PO BID 30 Days #60 tablet 04/01/18 Thiamine HCl [Vitamin B1 -] 100 mg PO DAILY 30 Days #30 tablet 04/01/18 - Diagnosis (1) Alcohol dependence with uncomplicated withdrawal Current Visit: Yes Status: Acute (2) HTN (hypertension) Current Visit: Yes Status: Chronic Qualifiers: Hypertension type: essential hypertension Qualified Code(s): I10 - Essential (primary) hypertension (3) Liver cirrhosis, alcoholic Current Visit: Yes Status: Chronic Qualifiers: Ascites presence: unspecified Qualified Code(s): K70.30 - Alcoholic cirrhosis of liver without ascites (4) Thrombocytopenia Current Visit: Yes Status: Chronic (5) GERD (gastroesophageal reflux disease) Current Visit: Yes Status: Acute Qualifiers: Esophagitis presence: without esophagitis Qualified Code(s): K21.9 - Gastro -esophageal reflux disease without esophagitis (6) Alcoholic hepatitis Current Visit: Yes Status: Chronic Qualifiers: Ascites presence: without ascites Qualified Code(s): K70.10 - Alcoholic hepatitis without ascites - AMA Did Patient Leave Against Medical Advice: Yes
[2018-04-25] MEDS ORDERED: chlordiazePOXIDE 5 MG CAPSULE PO SCH (23:00)
[2018-04-26] MEDS ORDERED: chlordiazePOXIDE HCL 10 MG CAPSULE PO SCH (23:00)
== END 2018-04-25 03:30 | disposition left against medical advice (07) | DRG 770 ==
LOC: YASAS 18:10 → Y6N 19:42
PROVIDERS: ADMIT Neuromusculoskeletal Medicine & OMM; ATTEND Neuromusculoskeletal Medicine & OMM
PROC: HZ2ZZZZ Detoxification Services for Substance Abuse Treatment (ICD-10-PCS; principal; 2018-04-23)
DX: F11.23 Opioid dependence with withdrawal (principal); I10 Essential (primary) hypertension; K70.30 Alcoholic cirrhosis of liver without ascites; K70.10 Alcoholic hepatitis without ascites; D69.6 Thrombocytopenia, unspecified; K21.9 Gastro-esophageal reflux disease without esophagitis; E87.6 Hypokalemia; R63.8 Other symptoms and signs concerning food and fluid intake; R17 Unspecified jaundice
CPT/HCPCS: 36415; 80053; 81003; 81015; 85027; 86593; Q0162

== ENCOUNTER 2018-05-15 15:48 | Emergency (ER) | payer SELFPAY ==
[2018-05-15] MEDS ORDERED: FOLIC ACID INJECTION - 1 MG, THIAMINE HCL 100 MG, MULTIVIT INJECTION ADULT 10 ML in SOD... IVPB ONE (16:00)
--- NOTE | 2018-05-15 16:01 | PDOC ---
Rapid Medical Evaluation Chief Complaint: Alcohol intoxication Time Seen by Provider: 05/15/18 15:58 Medical Evaluation: Allergies Allergy/AdvReac Type Severity Reaction Status Date / Time No Known Allergies Allergy Verified 05/15/18 15:58 05/15/18 15:59 I have performed a brief in-person evaluation of this patient. The patient presents with a chief complaint of: Detox from ETOH Pertinent physical exam findings: NAD I have ordered the following: CBC, CMP, Lipase PIV bannana bag The patient will proceed to the ED for further evaluation. Discharge Disposition - Diagnosis Alcohol intoxication - Referrals - Patient Instructions - Post Discharge Activity
[2018-05-15 16:05] VITALS: BP 143/71; PULSE 109; TEMP 98.3; BMI 44.3
--- NOTE | 2018-05-15 17:04 | PDOC ---
History of Present Illness - General Chief Complaint: Alcohol intoxication Stated Complaint: DETOX Time Seen by Provider: 05/15/18 15:58 History Source: Patient Exam Limitations: No Limitations - History of Present Illness Initial Comments: 05/15/18 17:14 28-year-old male here for alcohol detox patient states drinks beers daily but denies drug use. Patient states called [facility] today but was told there had no male beds. Patient has no complaints of vomiting blood, abdominal pain, headache, chest pain or shortness of breath. Patient states has been in detox before and has been drinking for approximately 13 years. Severity: moderate Associated Symptoms: reports: denies symptoms Past History - Travel Traveled outside of the country in the last 30 days: No Close contact w/someone who was outside of country & ill: No - Past Medical History Allergies/Adverse Reactions: Allergies Allergy/AdvReac Type Severity Reaction Status Date / Time No Known Allergies Allergy Verified 05/15/18 15:58 Home Medications: Ambulatory Orders Folic Acid - 1 mg PO DAILY 30 Days #30 tablet 04/01/18 Lactulose (Oral Use) [Cephulac -] 20 gm PO QID 30 Days #120 udc 04/01/18 Nadolol [Corgard -] 40 mg PO DAILY 30 Days #30 tablet 04/01/18 Pantoprazole Sodium [Protonix -] 40 mg PO DAILY 30 Days #30 tablet.ec 04/01/18 Thiamine HCl [Vitamin B1 -] 100 mg PO DAILY 30 Days #30 tablet 04/01/18 Anemia: No Asthma: No Cancer: No Cardiac Disorders: No CVA: No COPD: No CHF: No DVT: No Dementia: No Diabetes: No GI Disorders: Yes (GERD) Disorders: No HTN: Yes (Alcohol induced, not on meds) Hypercholesterolemia: No Kidney Stones: No Liver Disease: Yes (Cirrhosis) Seizures: No Thyroid Disease: No Lung CA: No - Surgical History Abdominal Surgery: No Appendectomy: No Cardiac Surgery: No Cholecystectomy: No Gastric Stapling: No Lung Surgery: No Neurologic Surgery: No Orthopedic Surgery: No - Reproductive History Testicular Surgery: No - Immunization History Immunization Up to Date: No - Suicide/Smoking/Psychosocial Hx Smoking Status: No Smoking History: Unknown if ever smoked Have you smoked in the past 12 months: No Number of Cigarettes Smoked Daily: 0 Cigars Per Day: 0 Hx Alcohol Use: Yes Drug/Substance Use Hx: Yes (viral 1 week ago) Substance Use Type: Alcohol Hx Substance Use Treatment: Yes ([facility]) Patient Lives Alone: No Lives with/in: parents Review of Systems - Review of Systems Able to Perform ROS?: No Is the patient limited Lao proficient: No Constitutional: No: Symptoms Reported HEENTM: No: Symptoms Reported Respiratory: No: Symptoms reported Cardiac (ROS): No: Symptoms Reported ABD/GI: No: Symptoms Reported : No: Symptoms Reported Musculoskeletal: No: Symptoms Reported Integumentary: No: Symptoms Reported Neurological: No: Symptoms reported Endocrine: No: Symptoms Reported Hematologic/Lymphatic: No: Symptoms Reported *Physical Exam - Vital Signs Last Vital Signs Temp Pulse Resp BP Pulse Ox 98.3 F 109 H 18 143/71 97 05/15/18 15:59 05/15/18 15:59 05/15/18 15:59 05/15/18 15:59 05/15/18 15:59 - Physical Exam General Appearance: Yes: Nourished, Appropriately Dressed, Alcohol on Breath. No: Apparent Distress HEENT: positive: EOMI, PELON, TMs Normal, Pharynx Normal (dry). negative: Pale Conjunctivae Neck: positive: Supple Respiratory/Chest: positive: Lungs Clear, Normal Breath Sounds. negative: Respiratory Distress, Accessory Muscle Use Cardiovascular: positive: Regular Rhythm, Tachycardia. negative: Murmur Gastrointestinal/Abdominal: positive: Soft. negative: Tenderness Extremity: positive: Normal Capillary Refill Integumentary: positive: Normal Color, Warm, Moist Neurologic: positive: Normal Mood/Affect, Motor Strength 5/5 (ambulatory) Moderate Sedation - Procedure Monitoring Vital Signs: Procedure Monitoring Vital Signs Temperature 98.3 F 05/15/18 15:59 Pulse Rate 109 H 05/15/18 15:59 Respiratory Rate 18 05/15/18 15:59 Blood Pressure 143/71 05/15/18 15:59 O2 Sat by Pulse Oximetry (%) 97 05/15/18 15:59 ED Treatment Course - LABORATORY CBC & Chemistry Diagram: 05/15/18 17:00 05/15/18 17:00 Medical Decision Making - Medical Decision Making 05/15/18 17:17 CC: ALcohol abuse requesing detox, no complaints presently, last drink 3 hrs ago Exam: slightly tachy, alcohol on breath Plan: urine, labs, ivf and spoke to Jose at [facility] who states there a beds avail but to call prior to transfer 05/15/18 18:11 Laboratory Tests 05/15/18 05/15/18 17:00 17:25 WBC 5.1 RBC 4.25 Hgb 14.5 MCV 96.4 H MCH 34.2 H Plt Count 40 L D MPV 8.9 Absolute Neuts (auto) 2.9 Neutrophils % 57.3 Lymphocytes % 31.7 Monocytes % 7.9 Eosinophils % 1.3 Basophils % 1.8 Nucleated RBC % 0 Urine Protein 2+ H Urine Glucose (UA) 1+ H Urine Blood 1+ H Urine Nitrite Negative Urine Bilirubin Negative Ur Leukocyte Esterase Negative Urine WBC (Auto) Pending Urine RBC (Auto) Pending 05/15/18 18:22 Laboratory Tests 05/15/18 05/15/18 17:25 17:25 Urine WBC (Auto) 1 Urine RBC (Auto) <1 Ur Epithelial Cells Rare Hyaline Casts 27 Urine Mucus Rare Opiates Screen Negative Methadone Screen Negative Barbiturate Screen Negative Phencyclidine Screen Negative Ur Amphetamines Screen Negative MDMA (Ecstasy) Screen Negative Cocaine Screen Negative U Marijuana (THC) Screen Negative Chemistry pending 05/15/18 18:30 Laboratory Tests 05/15/18 17:00 Sodium 138 Potassium Pending Chloride 98 Carbon Dioxide 33 H Anion Gap 7 L BUN 7 Creatinine 0.6 Creat Clearance w eGFR > 60 Random Glucose 153 H Calcium 8.0 L Magnesium 2.0 Total Bilirubin 3.7 H AST 93 H ALT 41 Alkaline Phosphatase 307 H Total Protein 8.2 Albumin 3.2 L Lipase 166 Laboratory Tests 05/15/18 17:00 Alcohol, Quantitative 370.1 H *DC/Admit/Observation/Transfer Diagnosis at time of Disposition: Alcohol intoxication, Alcohol abuse - Discharge Dispostion Disposition: HOME - Referrals - Patient Instructions Printed Discharge Instructions: DI for Alcohol Abuse Additional Instructions: [facility] follow program as instructed. Please utilize all resources to maintain abstinence. - Post Discharge Activity
[2018-05-15 17:50] LABS: BASO % 1.8 % (0-2.0); EOS % 1.3 % (0-4.5); HEMOGLOBIN 14.5 GM/dL (11.7-16.9); LYMPH % 31.7 % (8-40); MCH 34.2 pg (25.7-33.7); MCHC 35.4 g/dl (32.0-35.9); MEAN CELL VOLUME 96.4 fl (80-96); MEAN PLT VOLUME 8.9 fl (7.5-11.1); MONO % 7.9 % (3.8-10.2); NEUT % 57.3 % (42.8-82.8); PLATELET COUNT 40 K/MM3 (134-434); RBC 4.25 M/mm3 (4.00-5.60); RDW 14.5 % (11.9-15.9); WHITE BLOOD COUNT 5.1 K/mm3 (4.0-10.0)
[2018-05-15 17:53] LABS: URINE APPEARANCE CLEAR; URINE BILIRUBIN NEGATIVE (<2.0 mg/dL); URINE COLOR DKYELLOW; URINE GLUCOSE (UA) 1+ (NEGATIVE); URINE KETONE NEGATIVE (NEGATIVE); URINE LEUK ESTERASE NEGATIVE (NEGATIVE); URINE NITRITE NEGATIVE (NEGATIVE); URINE PROTEIN 2+ (NEGATIVE)
[2018-05-15 18:10] LABS: EPI CELLS RARE /HPF (FEW); URINE HYALINE CAST 27 /lpf; URINE MUCUS RARE
[2018-05-15 18:13] LABS: COCAINE, UR NEGATIVE ng/ml (CUTOFF=300); METHADONE, UR NEGATIVE ng/ml (CUTOFF=300); OPIATES, URI NEGATIVE ng/ml (CUTOFF=300); PHENCYCLIDINE,URINE NEGATIVE ng/ml (CUTOFF=25); URINE AMPHETAMINES NEGATIVE ng/ml (CUTOFF=500); URINE BARBITURATES NEGATIVE ng/ml (CUTOFF=200)
[2018-05-15 18:22] LABS: ALBUMIN 3.2 g/dl (3.4-5.0); ALK PHOS 307 U/L (45-117); ANION GAP 7 MMOL/L (8-16); BILIRUBIN,TOTAL 3.7 mg/dL (0.2-1); BLOOD UREA NITROGEN 7 mg/dL (7-18); CHLORIDE 98 mmol/L (98-107); CO2 33 mmol/L (21-32); CREATININE 0.6 mg/dL (0.55-1.3); GLUCOSE,RANDOM 153 mg/dL (74-106); LIPASE 166 U/L (73-393); SGOT/AST 93 U/L (15-37); SGPT/ALT 41 U/L (13-61); SODIUM 138 mmol/L (136-145); TOT PROT 8.2 g/dl (6.4-8.2)
[2018-05-15 18:38] LABS: URINE BENZODIAZEPINES POSITIVE ng/ml (CUTOFF=200)
[2018-05-15 19:14] LABS: POTASSIUM 2.7 mmol/L (3.5-5.1)
== END 2018-05-15 18:56 | disposition home or self-care (01) ==
LOC: JER 15:48
PROC: 3E033GC Introduction of Other Therapeutic Substance into Peripheral Vein, Percutaneous Approach (ICD-10-PCS; principal; 2018-05-15)
DX: F10.120 Alcohol abuse with intoxication, uncomplicated (principal); Y90.8 Blood alcohol level of 240 mg/100 ml or more; I10 Essential (primary) hypertension; K21.9 Gastro-esophageal reflux disease without esophagitis; K74.60 Unspecified cirrhosis of liver
CPT/HCPCS: 36415; 80053; 80307; 81003; 81015; 83690; 83735; 85025; 99284-25; J7030

== ENCOUNTER 2018-05-25 16:41 | Inpatient (IN) | payer SELFPAY ==
[2018-05-25 16:49] VITALS: BMI 45.7
--- NOTE | 2018-05-25 18:28 | HP ---
CIWA Score Nausea/Vomitin Muscle Tremors: 3 Anxiety: 2 Agitation: 2 Paroxysmal Sweats: 1-Minimal Palms Moist Orientation: 0-Oriented Tacttile Disturbances: 0-None Auditory Disturbances: 0-None Visual Disturbances: 0-None Headache: 2-Mild CIWA-Ar Total Score: 12 - Admission Criteria OASAS Guidelines: Admission for Medically Managed Detox: Requires at least one of the followin. CIWA greater than 12 2. Seizures within the past 24 hours 3. Delirium tremens within the past 24 hours 4. Hallucinations within the past 24 hours 5. Acute intervention needed for co occurring medical disorder 6. Acute intervention needed for co occurring psychiatric disorder 7. Severe withdrawal that cannot be handled at a lower level of care (continued vomiting, continued diarrhea, abnormal vital signs) requiring intravenous medication and/or fluids 8. Patient presents the following: CIWA greater than 12 Admission Criteria Met: Admission criteria met Admission ROS [facility] Chief Complaint: here for alcohol detox 28 yo with h/o liver disease from alcohol, was at [facility] for alcohol use treatment a couple days ago. Stayed for a few hours and came here medical problems: liver disease Rx-Vitamin B1,B12 and folic acid. alcohol- drinks 3 24 oz of beer, no seizures/DT's no other drugs. DUR- no recent controlled substances Utox: Bzo, ASHA- 0.324 Allergies/Adverse Reactions: Allergies Allergy/AdvReac Type Severity Reaction Status Date / Time No Known Allergies Allergy Verified 05/15/18 15:58 Exam Limitations: No Limitations - Ebola screening Have you traveled outside of the country in the last 21 days: No (N) Have you had contact with anyone from an Ebola affected area: No Have you been sick,other than usual withdrawal symptoms: No Do you have a fever: No - Review of Systems Constitutional: No Symptoms Reported EENT: reports: No Symptoms Reported Respiratory: reports: No Symptoms reported Cardiac: reports: No Symptoms Reported GI: reports: No Symptoms Reported : reports: No Symptoms Reported Musculoskeletal: reports: No Symptoms Reported Integumentary: reports: No Symptoms Reported Neuro: reports: No Symptoms reported Endocrine: reports: No Symptoms Reported Hematology: reports: No Symptoms Reported Psychiatric: reports: No Sypmtoms Reported Patient History - Patient Medical History Hx Anemia: No Hx Asthma: No Hx Chronic Obstructive Pulmonary Disease (COPD): No Hx Cancer: No Hx Cardiac Disorders: No Hx Congestive Heart Failure: No Hx Hypertension: Yes (Alcohol induced, not on meds) Hx Hypercholesterolemia: No Hx Pacemaker: No HX Cerebrovascular Accident: No Hx Seizures: No Hx Dementia: No Hx Diabetes: No Hx Gastrointestinal Disorders: Yes (GERD) Hx Liver Disease: Yes (Cirrhosis) Hx Genitourinary Disorders: No Hx Sexually Transmitted Disorders: No Hx Renal Disease (ESRD): No Hx Thyroid Disease: No Hx Human Immunodeficiency Virus (HIV): No Hx Hepatitis C: No Hx Depression: No Hx Suicide Attempt: No Hx Bipolar Disorder: No Hx Schizophrenia: No - Patient Surgical History Past Surgical History: No Hx Neurologic Surgery: No Hx Cataract Extraction: No Hx Cardiac Surgery: No Hx Lung Surgery: No Hx Breast Surgery: No Hx Breast Biopsy: No Hx Abdominal Surgery: No Hx Appendectomy: No Hx Cholecystectomy: No Hx Genitourinary Surgery: No Hx Section: No Hx Orthopedic Surgery: No Hx Hysterectomy: No Anesthesia Reaction: No - PPD History Date: 07/25/17 Results: NEGATIVE PPD to be Administered?: No - Smoking Cessation Smoking history: Unknown if ever smoked Have you smoked in the past 12 months: No Aproximately how many cigarettes per day: 0 Cigars Per Day: 0 Hx Chewing Tobacco Use: No Initiated information on smoking cessation: No - Substance & Tx. History Substance Use Type: Alcohol Family Disease History - Family Disease History Family Disease History: Diabetes: Grandparent, Other: Father (ALCOHOLISM, ) Admission Physical Exam [facility] - Vital Signs Vital Signs: Vital Signs - 24 hr 05/25/18 16:47 Temperature 98 F Pulse Rate 108 H Respiratory 20 Rate Blood Pressure 148/87 - Physical General Appearance: Yes: Within Normal Limits, No Apparent Distress, Nourished HEENTM: Yes: Within Normal Limits Respiratory: Yes: Within Normal Limits, Chest Non-Tender, Lungs Clear Neck: Yes: Within Normal Limits, No masses,lesions,Nodules Cardiology: Yes: Within Normal Limits, Regular Rate, S1, S2 Abdominal: Yes: Within Normal Limits, Protuberent Back: Yes: Within Normal Limits Musculoskeletal: Yes: Within Normal Limits, full range of Motion, Gait Steady Extremities: Yes: Within Normal Limits, Other (no edema) Neurological: Yes: Within Normal Limits, cane burner II-XII NML intact, Fully Oriented Integumentary: Yes: Within Normal Limits, Normal Color Lymphatic: Yes: Within Normal Limits - Diagnostic (1) Alcohol dependence with uncomplicated withdrawal Current Visit: No Status: Acute (2) Liver cirrhosis, alcoholic Current Visit: No Status: Chronic Qualifiers: Ascites presence: unspecified Qualified Code(s): K70.30 - Alcoholic cirrhosis of liver without ascites [facility] Breath Alcohol Content Breath Alcohol Content: 0.324 Urine Drug Screen - Results Drug Screen Negative: No Urine Drug Screen Results: BZO-Benzodiazepines Inpatient Rehab Admission - Rehab Decision to Admit Inpatient rehab admission?: No
[2018-05-25] MEDS ORDERED: ACETAMINOPHEN 325 MG TABLET (FP) PO PRN (18:38)
[2018-05-25] MEDS ORDERED: MENTHOL/PHENOL 1 EACH UD MM PRN (18:38)
[2018-05-25] MEDS ORDERED: IBUPROFEN 400 MG TABLET (FP) PO PRN (18:38)
[2018-05-25] MEDS ORDERED: LOPERAMIDE HCL 2 MG CAPSULE PO PRN (18:38)
[2018-05-25] MEDS ORDERED: guaiFENesin/D-METHORPHAN HB 10 ML UNIT-DOSE CUPS PO PRN (18:38)
[2018-05-25] MEDS ORDERED: MAG HYDROX/AL HYDROX/SIMETH 30 ML UNIT-DOSE CUP PO PRN (18:38)
[2018-05-25] MEDS ORDERED: P-EPHED 60MG/TRIPROLIDI 2.5MG TABLET PO PRN (18:38)
[2018-05-25] MEDS ORDERED: MAGNESIUM CITRATE 300 ML BOTTLE PO PRN (18:38)
[2018-05-25] MEDS ORDERED: MAGNESIUM HYDROX 2400MG/30ML ORAL SUSPENSION 30 ML CUP PO PRN (18:38)
[2018-05-25] MEDS ORDERED: hydrOXYzine PAMOATE 25 MG CAPSULE (FP) PO PRN (18:38)
[2018-05-25] MEDS ORDERED: MELATONIN 5 MG TABLETS PO PRN (22:00)
[2018-05-25] MEDS: THIAMINE HCL 100 MG TABLET (FP) PO SCH (22:34)
[2018-05-25] MEDS: LORazepam 2 MG TABLET PO SCH (23:05)
[2018-05-25 23:34] LABS: URINE APPEARANCE CLEAR; URINE BILIRUBIN NEGATIVE (<2.0 mg/dL); URINE COLOR AMBER; URINE GLUCOSE (UA) NEGATIVE (NEGATIVE); URINE KETONE NEGATIVE (NEGATIVE); URINE LEUK ESTERASE NEGATIVE (NEGATIVE); URINE NITRITE NEGATIVE (NEGATIVE); URINE PROTEIN 2+ (NEGATIVE); URINE UROBILINOGEN 4.0 E.U/dl mg/dL (0.2-1.0)
[2018-05-25 23:45] LABS: EPI CELLS RARE /HPF (FEW); URINE MUCUS RARE
[2018-05-26] MEDS: LORazepam 2 MG TABLET PO SCH ×3 (05:32→17:43)
[2018-05-26] MEDS: PRENATAL VITAMINS W/ FOLIC ACID TABLET (FP) PO SCH (10:51)
[2018-05-26 11:30] LABS: ALBUMIN 2.6 g/dl (3.4-5.0); ALK PHOS 182 U/L (45-117); ANION GAP 6 MMOL/L (8-16); BILIRUBIN,TOTAL 3.4 mg/dL (0.2-1); BLOOD UREA NITROGEN 3 mg/dL (7-18); CALCIUM 7.7 mg/dL (8.5-10.1); CHLORIDE 109 mmol/L (98-107); CO2 26 mmol/L (21-32); CREATININE 0.3 mg/dL (0.55-1.3); GLUCOSE,RANDOM 94 mg/dL (74-106); POTASSIUM 3.8 mmol/L (3.5-5.1); SGOT/AST 103 U/L (15-37); SGPT/ALT 35 U/L (13-61); SODIUM 141 mmol/L (136-145); TOT PROT 6.5 g/dl (6.4-8.2)
[2018-05-26 11:51] LABS: HEMATOCRIT 31.3 % (35.4-49); HEMOGLOBIN 11.3 GM/dL (11.7-16.9); MCH 34.6 pg (25.7-33.7); MCHC 36.1 g/dl (32.0-35.9); MEAN CELL VOLUME 95.9 fl (80-96); MEAN PLT VOLUME 8.6 fl (7.5-11.1); RBC 3.27 M/mm3 (4.00-5.60); RDW 14.3 % (11.9-15.9); WHITE BLOOD COUNT 2.5 K/mm3 (4.0-10.0)
--- NOTE | 2018-05-26 13:15 | PN ---
[facility] CIWA - CIWA Score Nausea/Vomitin-No Nausea/No Vomiting Muscle Tremors: 4-Moderate,w/Arms Extend Anxiety: 2 Agitation: 0-Normal Activity Paroxysmal Sweats: 2 Orientation: 0-Oriented Tacttile Disturbances: 0-None Auditory Disturbances: 2-Mild Harshness/Frighten Visual Disturbances: 2-Mild Sensitivity Headache: 0-None Present CIWA-Ar Total Score: 12 [facility] Progress Note (SOAP) Subjective: Sweating, Tremors, Interrupted Sleep. Objective: PATIENT A & O X 3, OBSERVED AMBULATING ON UNIT. IN NO ACUTE DISTRESS. PATIENT DENIES ANY UNUSUAL EASILY BRUISING OR BLEEDING (EX: WHEN BRUSHING TEETH , NOSEBLEED, VISUALIZATION OF BLOOD IN URINE OR STOOL, ETC.). 05/26/18 13:16 Vital Signs Temperature 98.2 F 05/26/18 09:50 Pulse Rate 101 H 05/26/18 11:30 Respiratory Rate 18 05/26/18 11:30 Blood Pressure 147/81 05/26/18 09:50 O2 Sat by Pulse Oximetry (%) Laboratory Tests 05/25/18 05/26/18 22:23 08:00 Sodium 141 Potassium 3.8 Chloride 109 H Carbon Dioxide 26 Anion Gap 6 L BUN 3 L Creatinine 0.3 L Creat Clearance w eGFR > 60 Random Glucose 94 Calcium 7.7 L Total Bilirubin 3.4 H AST 103 H ALT 35 Alkaline Phosphatase 182 H Total Protein 6.5 Albumin 2.6 L Urine Color Tracey Urine Appearance Clear Urine pH 6.0 Ur Specific [place] 1.009 L Urine Protein 2+ H Urine Glucose (UA) Negative Urine Ketones Negative Urine Blood 1+ H Urine Nitrite Negative Urine Bilirubin Negative Urine Urobilinogen 4.0 e.u/dl Ur Leukocyte Esterase Negative Urine WBC (Auto) None Urine RBC (Auto) <1 Ur Epithelial Cells Rare Urine Mucus Rare LABS NOTED. PATIERNT HAS HAD LOW WBC, RBC, HGB, HCT, AND PLT LEVELS ON PREVIOUS ADMISSIONS. ELEVATED BILIRUBIN LEVEL NOTED. PATIENT REPORTED HISTORY OF CIRRHOSIS OF LIVER ON DETOX ADMISSION. PATIENT CURRENTLY PRESCRIBED ATIVAN DETOX REGIMEN. 05/26/18 14:17 Assessment: 05/26/18 13:17 WITHDRAWAL SYMPTOMS. HYPERTENSION. HYPERBILIRUBINEMIA. PANCYTOPENIA. 05/26/18 13:23 Plan: CONTINUE DETOX. INCREASE DAILY PO FLUID INTAKE. REPEAT CBC ON 05/28/2018 FOR PANCYTOPENIA NOTED ON ADMISSION CBC. PATIENT IS CURRENTLY RECEIVING DAILY MVI CONTAINING B VITAMINS AND IRON WHILE ADMITTED FOR DETOX. PATIENT REPORTS THAT HE WAS PRESCRIBED NADALOL IN THE RECENT PAST BY AN ER MEDICAL PROVIDER. PATIENT RPEORTS THAT HE ONLY TOOK THE MEDICATION FOR ONE WEEK , AND THEN STOPPED. WILL CONTINUE TO MONITOR BP BEFORE DETERMINING WHETHER OR NOT TO RE-START NADOLOL. PATIENT ADVISED TO FOLLOW-UP WITH [facility] (AFFILIATED WITH [place], [place], PATIENT UNABLE TO RECALL NAME OF MEDICAL PROVIDER AT THIS TIME) SOON POSSIBLE AFTER DISCHARGE FROM DETOX UNIT FOR GENERAL MEDICAL ASSESSMENT, FOR HISTORY OF CIRRHOSIS OF LIVER, AND FOR ABNORMAL CBC LAB VALUES NOTED WHILE ADMITTED FOR DETOX. PATIENT VERBALIZED UNDERSTANDING OF RECOMMENDATION.
[2018-05-26 13:38] LABS: PLATELET COUNT 26 K/MM3 (134-434)
[2018-05-26] MEDS ORDERED: LORazepam 2 MG TABLET PO PRN (18:40)
[2018-05-26] MEDS: THIAMINE HCL 100 MG TABLET (FP) PO SCH (22:14)
[2018-05-26] MEDS ORDERED: LORazepam 0.5 MG TABLET PO PRN (23:00)
[2018-05-27] MEDS ORDERED: LORazepam 0.5 MG TABLET PO SCH
[2018-05-27] MEDS ORDERED: LORazepam 1 MG TABLET PO PRN (05:33)
[2018-05-27] MEDS: LORazepam 1 MG TABLET PO SCH ×4 (05:39→23:08)
[2018-05-27] MEDS: PRENATAL VITAMINS W/ FOLIC ACID TABLET (FP) PO SCH (10:41)
--- NOTE | 2018-05-27 11:57 | PN ---
S CIWA - CIWA Score Nausea/Vomitin-No Nausea/No Vomiting Muscle Tremors: None Anxiety: 0-No Anxiety, at Ease Agitation: 0-Normal Activity Paroxysmal Sweats: No Perspiration Orientation: 0-Oriented Tacttile Disturbances: 0-None Auditory Disturbances: 0-None Visual Disturbances: 0-None Headache: 0-None Present CIWA-Ar Total Score: 0 [facility] Progress Note (SOAP) Subjective: day #2 after admission, pt states he is doing well on the alcohol detox protocol. Has no complaints Vital Signs - 24 hr 05/26/18 05/26/18 05/26/18 14:00 14:30 15:00 Temperature 99.1 F Pulse Rate 104 H 90 79 Respiratory 18 Rate Blood Pressure 118/75 05/26/18 05/26/18 05/26/18 16:00 16:30 17:00 Temperature Pulse Rate 77 106 H 101 H Respiratory 18 Rate Blood Pressure 05/26/18 05/26/18 05/26/18 17:07 17:30 18:00 Temperature 96.8 F L Pulse Rate 104 H 101 H 86 Respiratory 20 20 Rate Blood Pressure 131/67 05/26/18 05/26/18 05/26/18 18:30 19:00 19:30 Temperature Pulse Rate 89 82 80 Respiratory 20 Rate Blood Pressure 05/26/18 05/26/18 05/26/18 20:00 20:30 21:00 Temperature Pulse Rate 103 H 98 H 100 H Respiratory Rate Blood Pressure 05/26/18 05/26/18 05/26/18 21:30 22:00 22:39 Temperature 98.2 F Pulse Rate 102 H 100 H 103 H Respiratory 18 Rate Blood Pressure 150/80 05/27/18 05/27/18 06:12 09:16 Temperature 97.3 F L 98.8 F Pulse Rate 96 H 97 H Respiratory 18 20 Rate Blood Pressure 165/87 171/85 H Laboratory Tests 05/25/18 05/26/18 05/26/18 22:23 08:00 08:00 WBC 2.5 L RBC 3.27 L Hgb 11.3 L Hct 31.3 L D MCV 95.9 MCH 34.6 H MCHC 36.1 H RDW 14.3 Plt Count 26 L* D MPV 8.6 Sodium 141 Potassium 3.8 Chloride 109 H Carbon Dioxide 26 Anion Gap 6 L BUN 3 L Creatinine 0.3 L Creat Clearance w eGFR > 60 Random Glucose 94 Calcium 7.7 L Total Bilirubin 3.4 H AST 103 H ALT 35 Alkaline Phosphatase 182 H Total Protein 6.5 Albumin 2.6 L Urine Color Tracey Urine Appearance Clear Urine pH 6.0 Ur Specific [place] 1.009 L Urine Protein 2+ H Urine Glucose (UA) Negative Urine Ketones Negative Urine Blood 1+ H Urine Nitrite Negative Urine Bilirubin Negative Urine Urobilinogen 4.0 e.u/dl Ur Leukocyte Esterase Negative Urine WBC (Auto) None Urine RBC (Auto) <1 Ur Epithelial Cells Rare Urine Mucus Rare RPR Titer 05/26/18 08:00 WBC RBC Hgb Hct MCV MCH MCHC RDW Plt Count MPV Sodium Potassium Chloride Carbon Dioxide Anion Gap BUN Creatinine Creat Clearance w eGFR Random Glucose Calcium Total Bilirubin AST ALT Alkaline Phosphatase Total Protein Albumin Urine Color Urine Appearance Urine pH Ur Specific [place] Urine Protein Urine Glucose (UA) Urine Ketones Urine Blood Urine Nitrite Urine Bilirubin Urine Urobilinogen Ur Leukocyte Esterase Urine WBC (Auto) Urine RBC (Auto) Ur Epithelial Cells Urine Mucus RPR Titer Nonreactive a/p: alcohol use disorder- continue detox protocol pt known to have liver disease and cirrhosis- was at the ER prior to coming in here for detox: plts 26 now, increased bili and AST-- no bleeding noted- pt doing well, walking around- monitor and f/u PCP at discharge
[2018-05-27] MEDS: THIAMINE HCL 100 MG TABLET (FP) PO SCH (22:31)
[2018-05-28] MEDS: LORazepam 1 MG TABLET PO SCH (05:29)
[2018-05-28] MEDS ORDERED: LORazepam 2 MG TABLET PO ONE (06:00)
[2018-05-28 09:19] VITALS: BP 136/83; PULSE 106; TEMP 98.4
[2018-05-28 10:43] LABS: BASO % 0.7 % (0-2.0); EOS % 3.4 % (0-4.5); HEMATOCRIT 35.3 % (35.4-49); HEMOGLOBIN 12.7 GM/dL (11.7-16.9); LYMPH % 26.8 % (8-40); MCH 35.4 pg (25.7-33.7); MEAN CELL VOLUME 98.5 fl (80-96); MEAN PLT VOLUME 9.2 fl (7.5-11.1); MONO % 12.9 % (3.8-10.2); NEUT % 56.2 % (42.8-82.8); RBC 3.58 M/mm3 (4.00-5.60); RDW 15.3 % (11.9-15.9)
[2018-05-28 10:57] LABS: PLATELET COUNT 28 K/MM3 (134-434)
--- NOTE | 2018-05-28 10:58 | PN ---
S Progress Note Note: call received from lab regarding platelet result and it is currently 28. Lab result is improving from last blood drawn.
--- NOTE | 2018-05-28 13:07 | DS ---
[facility] Detox Discharge Summary Admission Date: 05/25/18 Discharge Date: 05/28/18 - History Present History: Alcohol Dependence Additional Comments: PATIENT DOES NOT WISH TO REMAIN TO COMPLETE DETOX REGIMEN. PATIENT REPORTS CONCERN OVER CURRENT INSURANCE COVERAGE AND ABOUT WHETHER OR NOT CURRENT INSURANCE WILL COVER THIS DETOX ADMISSION. PATIENT ADVISED AND ENCOURAGED TO DISCUSS MATTER WITH UNIT BILLING ADJUDICATOR; HOWEVER, PATIENT DECLINED TO DO SO AT THIS TIME AND ELECTS TO LEAVE DETOX UNIT, NOTING THAT HE WILL ADDRESS ISSUES WITH INSURANCE COVERAGE AND WILL LOOK INTO AFTERCARE OPTIONS ON HIS OWN AFTER LEAVING DETOX UNIT. RISKS OF LEAVING DETOX UNIT AGAINST MEDICAL ADVICE AND PRIOR TO COMPLETION OF DETOX REGIMEN EXPLAINED TO PATIENT. PATIENT ADVISED TO GO IMMEDIATELY TO NEAREST ER SHOULD ANY INTOLERABLE DETOX SYMPTOMS DEVELOP AT ANY TIME. PATIENT VERBALIZED UNDERSTANDING OF ALL INFORMATION / RECOMMENDATIONS PRESENTED TO HIM PRIOR TO DEPARTURE FROM DETOX UNIT. RESULTS OF REPEAT CBC ( INCLUDING PLATELETS) NOT AVAILABLE FOR VIEWING UNTIL AFTER PATIENT HAD ALREADY LEFT DETOX UNIT (ON PREVIOUS DAILY AM ROUNDS ASSESSMENT, PATIENT HAD BEEN ADVISED TO FOLLOW-UP WITH [facility] ([place], [place]) SOON POSSIBLE AFTER DISCHARGE FROM DETOX UNIT FOR GENERAL MEDICAL ASSESSMENT AND FOR HISTORY OF (ALCOHOLIC) CIRRHOSIS OF LIVER AND FOR ELEVATED BP. Pertinent Past History: HTN (Due to Alcohol Use), Cirrhosis of Liver (Alcoholic), History of G.E.R.D., Hyperbilairubinemia, Pancytopenia. - Physical Exam Results Vital Signs: Vital Signs Temperature 98.4 F 05/28/18 09:19 Pulse Rate 106 H 05/28/18 09:19 Respiratory Rate 18 05/28/18 09:19 Blood Pressure 136/83 05/28/18 09:19 O2 Sat by Pulse Oximetry (%) Pertinent Admission Physical Exam Findings: WITHDRAWAL SYMPTOMS. Laboratory Tests 05/25/18 05/26/18 05/26/18 22:23 08:00 08:00 WBC 2.5 L RBC 3.27 L Hgb 11.3 L Hct 31.3 L D MCV 95.9 MCH 34.6 H MCHC 36.1 H RDW 14.3 Plt Count 26 L* D MPV 8.6 Absolute Neuts (auto) Neutrophils % Lymphocytes % Monocytes % Eosinophils % Basophils % Nucleated RBC % Sodium 141 Potassium 3.8 Chloride 109 H Carbon Dioxide 26 Anion Gap 6 L BUN 3 L Creatinine 0.3 L Creat Clearance w eGFR > 60 Random Glucose 94 Calcium 7.7 L Total Bilirubin 3.4 H AST 103 H ALT 35 Alkaline Phosphatase 182 H Total Protein 6.5 Albumin 2.6 L Urine Color Tracey Urine Appearance Clear Urine pH 6.0 Ur Specific [place] 1.009 L Urine Protein 2+ H Urine Glucose (UA) Negative Urine Ketones Negative Urine Blood 1+ H Urine Nitrite Negative Urine Bilirubin Negative Urine Urobilinogen 4.0 e.u/dl Ur Leukocyte Esterase Negative Urine WBC (Auto) None Urine RBC (Auto) <1 Ur Epithelial Cells Rare Urine Mucus Rare RPR Titer 05/26/18 05/28/18 08:00 06:00 WBC 3.0 L RBC 3.58 L Hgb 12.7 Hct 35.3 L MCV 98.5 H MCH 35.4 H MCHC 36.0 H RDW 15.3 Plt Count 28 L* MPV 9.2 Absolute Neuts (auto) 1.7 Neutrophils % 56.2 Lymphocytes % 26.8 Monocytes % 12.9 H Eosinophils % 3.4 D Basophils % 0.7 Nucleated RBC % 0 Sodium Potassium Chloride Carbon Dioxide Anion Gap BUN Creatinine Creat Clearance w eGFR Random Glucose Calcium Total Bilirubin AST ALT Alkaline Phosphatase Total Protein Albumin Urine Color Urine Appearance Urine pH Ur Specific [place] Urine Protein Urine Glucose (UA) Urine Ketones Urine Blood Urine Nitrite Urine Bilirubin Urine Urobilinogen Ur Leukocyte Esterase Urine WBC (Auto) Urine RBC (Auto) Ur Epithelial Cells Urine Mucus RPR Titer Nonreactive LABS NOTED. - Treatment Hospital Course: Detoxed Safely - Medication Discharge Medications: Ambulatory Orders Folic Acid - 1 mg PO DAILY 30 Days #30 tablet 04/01/18 Lactulose (Oral Use) [Cephulac -] 20 gm PO QID 30 Days #120 udc 04/01/18 Nadolol [Corgard -] 40 mg PO DAILY 30 Days #30 tablet 04/01/18 Pantoprazole Sodium [Protonix -] 40 mg PO DAILY 30 Days #30 tablet.ec 04/01/18 Thiamine HCl [Vitamin B1 -] 100 mg PO DAILY 30 Days #30 tablet 04/01/18 NK [No Known Home Medication] 05/18/18 - Diagnosis (1) Pancytopenia Status: Acute (2) Alcohol dependence with uncomplicated withdrawal Status: Acute (3) Hyperbilirubinemia Status: Acute (4) Liver cirrhosis, alcoholic Status: Chronic Qualifiers: Ascites presence: unspecified Qualified Code(s): K70.30 - Alcoholic cirrhosis of liver without ascites - AMA Did Patient Leave Against Medical Advice: Yes (PATIENT DID NOT WISH TO REMAIN TO COMPLETE DETOX REGIMEN.)
[2018-05-29] MEDS ORDERED: LORazepam 0.5 MG TABLET PO ONE
== END 2018-05-28 09:35 | disposition left against medical advice (07) | DRG 770 ==
LOC: YASAS 16:41 → Y6N 21:29
PROVIDERS: ADMIT Surgery; ATTEND Surgery
PROC: HZ2ZZZZ Detoxification Services for Substance Abuse Treatment (ICD-10-PCS; principal; 2018-05-25)
DX: F10.230 Alcohol dependence with withdrawal, uncomplicated (principal); K21.9 Gastro-esophageal reflux disease without esophagitis; K70.30 Alcoholic cirrhosis of liver without ascites; E80.6 Other disorders of bilirubin metabolism; R94.5 Abnormal results of liver function studies
CPT/HCPCS: 36415; 80053; 81003; 81015; 85025; 85027; 86593

== ENCOUNTER 2018-06-18 11:50 | Inpatient (IN) | payer OTHER ==
--- NOTE | 2018-06-18 13:33 | PDOC ---
History of Present Illness - General Chief Complaint: Alcohol intoxication Stated Complaint: ALCOHOLIC Time Seen by Provider: 06/18/18 13:33 - History of Present Illness Initial Comments: Cleveland Luna is a 28yo man with a PMH of alcohol abuse, alcoholic cirrhosis, and thrombocytopenia who presents reporting alcohol withdrawal. He states that this morning his hands were shaking, and he felt flushed and sweaty. He drank two 24oz beers to help with the symptoms, which have since improved, but he is starting to feel them coming back. He says that he has been to detox in the past and it does not really help. He would be interested in rehab, but he does not have insurance and has not been accepted anywhere. He states that he started drinking at age 15. Initially he drank hard liquor but switched to beer only around age 22. He has continued to drink at least three 24oz beers per day Past History - Past Medical History Allergies/Adverse Reactions: Allergies Allergy/AdvReac Type Severity Reaction Status Date / Time No Known Allergies Allergy Verified 06/18/18 12:45 Home Medications: Ambulatory Orders Folic Acid - 1 mg PO DAILY 30 Days #30 tablet 04/01/18 Thiamine HCl [Vitamin B1 -] 100 mg PO DAILY 30 Days #30 tablet 04/01/18 Anemia: No Asthma: No Cancer: No Cardiac Disorders: No CVA: No COPD: No CHF: No DVT: No Dementia: No Diabetes: No GI Disorders: Yes (GERD) Disorders: No HTN: Yes Hypercholesterolemia: No Kidney Stones: No Liver Disease: Yes (Cirrhosis) Seizures: No Thyroid Disease: No Lung CA: No - Surgical History Abdominal Surgery: No Appendectomy: No Cardiac Surgery: No Cholecystectomy: No Gastric Stapling: No Lung Surgery: No Neurologic Surgery: No Orthopedic Surgery: No - Reproductive History Testicular Surgery: No - Immunization History Immunization Up to Date: No - Suicide/Smoking/Psychosocial Hx Smoking Status: No Smoking History: Former smoker Have you smoked in the past 12 months: No Number of Cigarettes Smoked Daily: 0 Cigars Per Day: 0 Information on smoking cessation initiated: No Hx Alcohol Use: Yes (DAILY) Drug/Substance Use Hx: Yes (MARIJUANA) Substance Use Type: Alcohol Hx Substance Use Treatment: No Review of Systems - Review of Systems Comments:: General: No fevers, no chills, no weight or appetite change, no malaise HEENT: No changes in vision, no changes in hearing, no congestion, no sore throat CV: No chest pain, no palpitations, no LE edema Pulm: No SOB, no cough, no wheezing GI: No nausea or vomiting, no change in bowel habits, no melena. +cirrhosis : No frequency, no urgency, no dysuria Musc: No back pain, no joint swelling, no recent injury Skin: No rash, no lesions, no erythema Endo: No excessive thirst, no heat/cold intolerance Heme: No unusual bruising or bleeding, no swollen glands Neuro: No syncope, no numbness/tingling, no focal weakness. +shaking Vasc: No claudication Psych: No recent change in mood, no SI or HI. +alcohol abuse *Physical Exam - Vital Signs Last Vital Signs Temp Pulse Resp BP Pulse Ox 98.3 F 118 H 18 142/76 94 L 06/18/18 12:41 06/18/18 12:41 06/18/18 12:41 06/18/18 12:41 06/18/18 12:41 - Physical Exam Comments: General: Comfortable, no acute distress. No diaphoresis HEENT: PERRL, EOMI, MMM, voice normal, normal neck ROM. No tongue fasciculations Cards: Tachycardic around 110, regular, no murmur appreciated Pulm: Comfortable on room air, clear to auscultation bilaterally Abd: Soft, nontender, nondistended, obese : No CVA tenderness Ext: Atraumatic. No LE edema. ROM intact. Strength 5/5 and equal bilaterally Vasc: Extremities WWP. Skin: Normal color, no rashes or lesions Neuro: A&Ox3, CN grossly intact, normal speech, motor/sensory grossly intact and symmetric. No tremor in extended hands Psych: Mood appropriate to situation Moderate Sedation - Procedure Monitoring Vital Signs: Procedure Monitoring Vital Signs Temperature 98.3 F 06/18/18 12:41 Pulse Rate 118 H 06/18/18 12:41 Respiratory Rate 18 06/18/18 12:41 Blood Pressure 142/76 06/18/18 12:41 O2 Sat by Pulse Oximetry (%) 94 L 06/18/18 12:41 ED Treatment Course - LABORATORY CBC & Chemistry Diagram: 06/18/18 16:30 06/18/18 16:18 Medical Decision Making - Medical Decision Making 06/18/18 13:48 Cleveland Luna is a 28yo man with a PMH of alcohol abuse, alcoholic cirrhosis, and thrombocytopenia who presents reporting symptoms of alcohol withdrawal that have improved after drinking 2- 24oz beers today (last around 2.5hrs ago). He was noted to be tachycardic but does not have any tremor, fasciculations, nausea /vomiting, sweating, or hallucinations at this time. - Previous visit notes referral to rehab, but Mr Luna states he has no insurance and cannot go - Unlikely to meet detox criteria at this time - No other complaints currently 06/18/18 14:28 - Giving 50mg librium due to tachycardia - Spoke to social work regarding possible rehab. Unlikely to qualify given lack of insurance. - Will attempt to contact [facility] to see if he may be accepted for rehab. 06/18/18 14:52 - Discussed with [facility]. They do not have detox or rehab beds available currently. State there is another facility that does sometimes accept patients without insurance. Calls to be placed by social work. 06/18/18 15:44 - Advised patient that detox/rehab facility [facility] take patients without insurance - Mr Luna is reluctant to leave the hospital; he is afraid that he will have a seizure despite never having one in the past. Advised that he should go to present to the rehab facility for intake - Discussed with Dr Thacker. Will recheck vitals as Mr Luna has received librium. Will obs if still abnormal 06/18/18 16:02 - HR now 120. BP 132/76, satting 96% - As [facility] detox has no available beds, will obs for alcohol withdrawal - Will check admission labs, CXR, EKG 06/18/18 19:12 - Labs notable for platelets 30 (previously in 20's), BUN 2, Cr 0.3, tbili 4.4, AST 120, Alk phos 202, ammonia 61, alb 2.8 - EKG w/ sinus tachycardia - Chest xray w/o concerning abnormalities - Will send microblog for admission 06/18/18 19:49 - Patient endorsed to Dr Montenegro, medicine team, for evaluation for admission to Dr Morales. Discussed with Dr Thacker and Dr Torres. Melony Claudio PGY1 *DC/Admit/Observation/Transfer Diagnosis at time of Disposition: Thrombocytopenia, Alcohol withdrawal, Hyperbilirubinemia - Discharge Dispostion Condition at time of disposition: Stable Decision to Admit order: Yes - Referrals - Patient Instructions - Post Discharge Activity
[2018-06-18] MEDS ORDERED: chlordiazePOXIDE HCL 25 MG CAPSULE PO ONE (14:19)
[2018-06-18] MEDS ORDERED: chlordiazePOXIDE HCL 25 MG CAPSULE ONE (14:27)
--- NOTE | 2018-06-18 15:36 | PDOC ---
Attending Attestation - Resident Resident Name: Melony Claudio - ED Attending Attestation I have performed the following: I have examined & evaluated the patient, The case was reviewed & discussed with the resident, I agree w/resident's findings & plan - HPI HPI: 06/18/18 15:32 28y/o M with alcoholism presents in search of rehab. Awoke this morning with some tremors but drank alcohol before arrival. no complaints now, states has done detox but unsuccessfully in the past. - Physicial Exam PE: 06/18/18 15:32 vss, o2 100% on my exam, HR 90 alert, calm, ambulating steadily no tongue fasciculations or tremor heart/lungs wnl - Medical Decision Making 06/18/18 15:33 28y/o M for alcohol rehab referral. has no insurance, discussed with and referral to [facility] rehab provided. not acutely intoxicated or in withdrawal librium single dose to help prevent sxs 06/18/18 16:56 remains tachy to 120 despite librium. feels like he's getting more anxious/shaky - will now need admit for withdrawal , detox can consult in house
[2018-06-18] MEDS ORDERED: FOLIC ACID INJECTION - 1 MG, THIAMINE HCL 100 MG, MULTIVIT INJECTION ADULT 10 ML in SOD... IVPB ONE (16:10)
[2018-06-18 16:56] LABS: BASO % 1.2 % (0-2.0); EOS % 2.4 % (0-4.5); HEMATOCRIT 37.9 % (35.4-49); HEMOGLOBIN 13.5 GM/dL (11.7-16.9); MCH 34.2 pg (25.7-33.7); MCHC 35.5 g/dl (32.0-35.9); MEAN CELL VOLUME 96.2 fl (80-96); MEAN PLT VOLUME 8.6 fl (7.5-11.1); MONO % 5.6 % (3.8-10.2); NEUT % 53.8 % (42.8-82.8); RBC 3.94 M/mm3 (4.00-5.60); RDW 14.9 % (11.9-15.9); WHITE BLOOD COUNT 5.5 K/mm3 (4.0-10.0)
[2018-06-18 17:00] LABS: PLATELET COUNT 30 K/MM3 (134-434)
[2018-06-18 17:26] LABS: ALBUMIN 2.8 g/dl (3.4-5.0); ALK PHOS 202 U/L (45-117); ANION GAP 5 MMOL/L (8-16); BILIRUBIN,TOTAL 4.4 mg/dL (0.2-1); CALCIUM 7.7 mg/dL (8.5-10.1); CHLORIDE 107 mmol/L (98-107); CO2 28 mmol/L (21-32); CREATININE 0.3 mg/dL (0.55-1.3); GLUCOSE,RANDOM 111 mg/dL (74-106); POTASSIUM 3.7 mmol/L (3.5-5.1); SGOT/AST 120 U/L (15-37); SGPT/ALT 51 U/L (13-61); SODIUM 140 mmol/L (136-145); TOT PROT 7.3 g/dl (6.4-8.2)
[2018-06-18] MEDS ORDERED: LORazepam 2 MG/ML SDV VIAL ONE (17:26)
[2018-06-18 18:25] LABS: BLOOD UREA NITROGEN 2 mg/dL (7-18)
[2018-06-18 21:27] LABS: PLATELET ESTIMATE DECREASED
[2018-06-18] MEDS ORDERED: LACTULOSE 20 GM/30 ML UDC (FOR ORAL USE ONLY) PO PRN (21:46)
--- NOTE | 2018-06-18 21:47 | PN ---
Teaching Attending Note Name of Resident: Guanaco Montenegro ATTENDING PHYSICIAN STATEMENT I saw and evaluated the patient. I reviewed the resident's note and discussed the case with the resident. I agree with the resident's findings and plan as documented. SUBJECTIVE: Patient is a 28 year old man with a PMH of alcohol abuse, alcoholic cirrhosis, and thrombocytopenia who presents reporting alcohol withdrawal. He states that this morning his hands were shaking, and he felt flushed and sweaty. He drank two 24oz beers to help with the symptoms, which have since improved, but he is starting to feel them coming back. He says that he has been to detox in the past and it does not really help. He would be interested in rehab, but he does not have insurance and has not been accepted anywhere. He states that he started drinking at age 15. Initially he drank hard liquor but switched to beer only around age 22. He has continued to drink at least three 24oz beers per day. Denies fever, chills, headache, photophobia, chest pain, SOB, dysuria or changes in bowel habits. OBJECTIVE: Alert Vital Signs Period Temp Pulse Resp BP Sys/Bernard Pulse Ox Last 24 Hr 98.3 F-98.7 F 83-120 18-22 123-142/64-76 94-98 HEENT: No Jaundice, eye redness or discharge, PERRLA, EOMI. Normocephalic, atraumatic. External ears are normal and hearing is grossly intact. No nasal discharge. Neck: Supple, nontender. No palpable adenopathy or thyromegaly. No JVD Chest: Good effort. Clear to auscultation and percussion. Heart: Sinus tachycardia. No S3, rub or murmur Abdomen: Not distended, soft, nontender and no HSM. No rebound or guarding. Normal bowel sounds. Ext: Peripheral pulses intact. No leg edema. Skin: Warm and dry. No petechiae, rash or ecchymosis. Neuro: Alert. Oriented x3. CN 2-12 grossly intact. Sensation grossly intact in all four extremities and DTR are symmetric. Psych: Appropriate mood and affect. Good insight. Current Medications Generic Name Dose Route Start Last Admin Trade Name Freq PRN Reason Stop Dose Admin Folic Acid 1 mg/ Thiamine HCl 1,000 mls @ 125 mls/hr 06/18/18 16:10 03/14/19 17:39 100 mg/ Multivitamins/Minerals IVPB 06/19/18 00:09 125 mls/hr 10 ml/ Sodium Chloride ONCE ONE Administration Home Medications Medication Instructions Recorded Folic Acid - 1 mg PO DAILY 30 Days #30 tablet 04/01/18 Thiamine HCl [Vitamin B1 -] 100 mg PO DAILY 30 Days #30 tablet 04/01/18 Abnormal Lab Results 06/18/18 06/18/18 06/18/18 16:18 16:30 16:30 RBC 3.94 L MCV 96.2 H MCH 34.2 H Plt Count 30 L* Anion Gap 5 L BUN 2 L* Creatinine 0.3 L Random Glucose 111 H Calcium 7.7 L Total Bilirubin 4.4 H AST 120 H Alkaline Phosphatase 202 H Ammonia 61.00 H Albumin 2.8 L ASSESSMENT AND PLAN: 1. Alcohol withdrawal syndrome/Alcohol abuse - Implement [facility] alcohol withdrawal protocol, neurochecks, seizure, fall and aspiration precautions. Treat with thiamine and folic acid and monitor electrolytes (Ca,Mg,K,P). Aquatics Coordinator patient about abstaining from alcohol and refer to alcohol detox upon discharge. Severe thrombocytopenia likely due to alcoholic liver disease/portal hypertension and bone marrow suppression. Monitor daily and consult Hematology. Treat with Lactulose 45 ml qid and Rifaximin 550 mg bid. EKG shows sinus tachycardia with prolonged QTc. 2. Hypoalbuminemia - Possibly due to combined effects of malnutrition and inflammation associated with comorbid chronic conditions. Will ensure adequate dietary protein intake and also consult pickup driver. 3. Obesity Counseled on the risks associated with obesity. Will provide patient all the necessary assistance, counseling and positive reinforcement to facilitate weight loss. Consult pickup driver. 4. DVT prophylaxis - Early ambulation. Unable to use heparin or compressive devices due to severe thrombocytopenia. 5. Advance directives - Full code
[2018-06-18] MEDS: RIFAXIMIN 550 MG TABLET (UD) PO SCH (22:03)
--- NOTE | 2018-06-18 22:49 | HP ---
CHIEF COMPLAINT: Tremors, asking to go to rehab PCP: HISTORY OF PRESENT ILLNESS: Pt. is a 28 y.o M presenting for tremors and requesting to go to rehab. Pt. states that this morning he woke up with tremors and very sweaty. Pt. said he drank 2 24oz. cans or malt liquor ( 8% alcohol content) to help with the symptoms to good effect. Pt. states he came to the hospital because the symptoms started to return. He denies feeling like bugs were crawling on his skin, hallucinations or anxiety. Pt. states that he does not take Rifaximin because he cannot afford it and he does not have insurance. Pt. states that he knows he has low platelets. Pt. denies any nausea, vomiting, blood stool, constipation, and diarrhea. ER course was notable for: (1)EKG, Librium, Ativan (2)labs, (3) Recent Travel: No PAST MEDICAL HISTORY: Thrombocytopenia, Pancytopenia, EtOh abuse, Cirrhosis, GERD, Hyperbilirubinemia, HTN PAST SURGICAL HISTORY: EGD w/ variceal banding. Social History: Smoking: Denies Alcohol: 3- 24Oz. Beers (8% alcohol)/ day Drugs: Remote Marijuana use Allergies No Known Allergies Allergy (Verified 06/18/18 12:45) HOME MEDICATIONS: Home Medications Medication Instructions Recorded Folic Acid - 1 mg PO DAILY 30 Days #30 tablet 04/01/18 Thiamine HCl [Vitamin B1 -] 100 mg PO DAILY 30 Days #30 tablet 04/01/18 REVIEW OF SYSTEMS CONSTITUTIONAL: diaphoresis Absent: fever, chills, generalized weakness, malaise, loss of appetite, weight change HEENT: Absent: rhinorrhea, nasal congestion, throat pain, throat swelling, difficulty swallowing, mouth swelling, ear pain, eye pain, visual changes CARDIOVASCULAR: Absent: chest pain, syncope, palpitations, irregular heart rate, lightheadedness , peripheral edema RESPIRATORY: Absent: cough, shortness of breath, dyspnea with exertion, orthopnea, wheezing, stridor, hemoptysis GASTROINTESTINAL: Absent: abdominal pain, abdominal distension, nausea, vomiting, diarrhea, constipation, melena, hematochezia GENITOURINARY: Absent: dysuria, frequency, urgency, hesitancy, hematuria, flank pain, genital pain MUSCULOSKELETAL: Absent: myalgia, arthralgia, joint swelling, back pain, neck pain SKIN: Absent: rash, itching, pallor HEMATOLOGIC/IMMUNOLOGIC: Absent: easy bleeding, easy bruising, lymphadenopathy, frequent infections ENDOCRINE: Absent: unexplained weight gain, unexplained weight loss, heat intolerance, cold intolerance NEUROLOGIC: tremors Absent: headache, focal weakness or paresthesias, dizziness, unsteady gait, seizure, mental status changes, bladder or bowel incontinence PSYCHIATRIC: Absent: anxiety, depression, suicidal or homicidal ideation, hallucinations. PHYSICAL EXAMINATION Vital Signs - 24 hr 06/18/18 06/18/18 06/18/18 12:41 16:05 19:18 Temperature 98.3 F 98.7 F Pulse Rate 118 H Pulse Rate [ 120 H 83 Radial] Respiratory 18 22 H 18 Rate Blood Pressure 142/76 Blood Pressure 132/76 123/64 [Left Arm] O2 Sat by Pulse 94 L 96 98 Oximetry (%) 06/18/18 19:23 Temperature Pulse Rate Pulse Rate [ Radial] Respiratory Rate Blood Pressure Blood Pressure [Left Arm] O2 Sat by Pulse 98 Oximetry (%) GENERAL: Awake, alert, and fully oriented after sternal rub, in no acute distress. HEAD: Normal with no signs of trauma. EYES: Pupils equal, round and reactive to light, extraocular movements intact, sclera icteric, conjunctiva clear. EARS, NOSE, THROAT: Ears normal, nares patent, oropharynx clear without exudates. Moist mucous membranes- jaundiced tongue. Poor oral hygeine NECK: Normal range of motion, supple without lymphadenopathy, JVD, or masses. LUNGS: Breath sounds equal, clear to auscultation bilaterally. No wheezes, and no crackles. No accessory muscle use. HEART: Tachycardic regular rate and rhythm, normal S1 and S2 without murmur, rub or gallop. ABDOMEN: Soft, nontender, not distended, normoactive bowel sounds, no guarding, no rebound, no masses. No hepatomegaly or splenomegaly. MUSCULOSKELETAL: No CVA tenderness. UPPER EXTREMITIES: 2+ radial pulses, warm, well-perfused, jaundiced palms. No cyanosis. No clubbing. No peripheral edema. LOWER EXTREMITIES: warm, well-perfused. No calf tenderness. No peripheral edema. NEUROLOGICAL: Normal speech. Gait not assessed PSYCHIATRIC: Cooperative. Good eye contact. Appropriate mood and affect. SKIN: Warm, dry, normal turgor, no rashes or lesions noted, normal capillary refill. Laboratory Results - last 24 hr 06/18/18 06/18/18 06/18/18 16:18 16:30 16:30 WBC 5.5 RBC 3.94 L Hgb 13.5 Hct 37.9 MCV 96.2 H MCH 34.2 H MCHC 35.5 RDW 14.9 Plt Count 30 L* MPV 8.6 Absolute Neuts (auto) 3.0 Neutrophils % 53.8 Lymphocytes % 37.0 D Monocytes % 5.6 Eosinophils % 2.4 Basophils % 1.2 Nucleated RBC % 0 Platelet Estimate Decreased Platelet Comment No clumping noted Sodium 140 Potassium 3.7 Chloride 107 Carbon Dioxide 28 Anion Gap 5 L BUN 2 L* Creatinine 0.3 L Creat Clearance w eGFR 352.03 Random Glucose 111 H Calcium 7.7 L Phosphorus 4.0 Magnesium 2.0 Total Bilirubin 4.4 H AST 120 H ALT 51 Alkaline Phosphatase 202 H Ammonia 61.00 H Total Protein 7.3 Albumin 2.8 L ASSESSMENT/PLAN: Pt. is a 28 y.o M w/ PMHx. of Thrombocytopenia, Pancytopenia, EtOh abuse, Cirrhosis, GERD, Hyperbilirubinemia, and HTN presents for tremors and requesting to go to rehab. #Alcohol Withdrawal associated with Cirrhosis and hyperammonemia CIWA Score: 4 (only sweating) Ativan Protocol given Cirrhosis EKG shows prolonged QTC: 489 NH3: 61-Trend f/u rehab placement on discharge c/w Rifaximin and Lactulose #Thrombocytopenia likely 2/2 cirrhosis f/u hematology consult (Dr. Glover) Platelets: 30k chronic low platelets has been in 20k in the past Trend Daily CBC #FEN Banana bag monitor electrolytes and replete as needed Full Liquid Diet- advance as tolerated, Pt, denies any nausea, vomiting, difficulty swallowing. Discussed with Pt. #DVT Early ambulation w/ assist. Pt. currently thrombocytopenic, not candidate for anticoagulation or SCDs. Fall Precautions Visit type - Emergency Visit Emergency Visit: Yes ED Registration Date: 06/18/18 Care time: The patient presented to the Emergency Department on the above date and was hospitalized for further evaluation of their emergent condition. - New Patient This patient is new to me today: Yes Date on this admission: 06/19/18 - Critical Care Critical Care patient: No
[2018-06-19] MEDS: LORazepam 0.5 MG TABLET PO PRN ×2 (02:47→14:25)
[2018-06-19 07:52] LABS: EOS % 2.9 % (0-4.5); LYMPH % 40.3 % (8-40); MCHC 36.4 g/dl (32.0-35.9); MEAN CELL VOLUME 96.3 fl (80-96); MEAN PLT VOLUME 9.2 fl (7.5-11.1); MONO % 6.4 % (3.8-10.2); NEUT % 49.4 % (42.8-82.8); RBC 3.43 M/mm3 (4.00-5.60); RDW 14.8 % (11.9-15.9); WHITE BLOOD COUNT 3.7 K/mm3 (4.0-10.0)
[2018-06-19 08:00] LABS: PLATELET COUNT 28 K/MM3 (134-434)
[2018-06-19 08:20] LABS: INR 1.94 (0.83-1.09)
[2018-06-19 08:51] LABS: ALBUMIN 2.4 g/dl (3.4-5.0); ALK PHOS 172 U/L (45-117); ANION GAP 7 MMOL/L (8-16); BILIRUBIN,TOTAL 4.7 mg/dL (0.2-1); BLOOD UREA NITROGEN 3 mg/dL (7-18); CALCIUM 7.5 mg/dL (8.5-10.1); CHLORIDE 108 mmol/L (98-107); CO2 24 mmol/L (21-32); CREATININE 0.2 mg/dL (0.55-1.3); GLUCOSE,RANDOM 90 mg/dL (74-106); MAGNESIUM 1.8 mg/dL (1.8-2.4); PHOSPHOROUS 3.6 mg/dL (2.5-4.9); POTASSIUM 3.6 mmol/L (3.5-5.1); SGOT/AST 104 U/L (15-37); SGPT/ALT 41 U/L (13-61); SODIUM 138 mmol/L (136-145); TOT PROT 6.2 g/dl (6.4-8.2)
[2018-06-19] MEDS: RIFAXIMIN 550 MG TABLET (UD) PO SCH ×2 (10:13→22:33)
--- NOTE | 2018-06-19 11:03 | EKG ---
Test Reason : Blood Pressure : / mmHG Vent. Rate : 116 BPM Atrial Rate : 116 BPM P-R Int : 162 ms QRS Dur : 082 ms QT Int : 352 ms P-R-T Axes : 057 -21 011 degrees QTc Int : 489 ms SINUS TACHYCARDIA POOR R WAVE PROGRESSION WHEN COMPARED WITH ECG OF 27-MAR-2018 01:45, NO SIGNIFICANT CHANGE WAS FOUND Confirmed by DORIS RODGERS MD ([id number]) on 06/19/2018 11:03:21 AM Referred By: Confirmed By:DORIS RODGERS MD
--- NOTE | 2018-06-19 14:21 | PN ---
Physical Exam: SUBJECTIVE: Patient seen and examined at bedside. All symptoms resolved at time of encounter, no acute complaints. OBJECTIVE: Vital Signs Period Temp Pulse Resp BP Sys/Bernard Pulse Ox Last 24 Hr 98.5 F-98.9 F 83-120 17-22 123-158/64-82 96-99 GENERAL: A&Ox3, NAD HEENT: NC/AT, PERRLA, EOMI, +scleral icterus NECK: Trachea midline, full range of motion, supple. LUNGS: CTA b/l HEART: tachycardic, no m/r/g ABDOMEN: +bs, soft, NT, ND EXTREMITIES: 2+ pulses, warm, well-perfused, no edema. NEUROLOGICAL: entertainment dancer, motor, sensory systems w/o focal deficit, no tremor/asterixis PSYCH: Normal mood, normal affect. SKIN: Warm, dry, diffusely jaundiced Laboratory Results - last 24 hr 06/18/18 06/18/18 06/18/18 16:18 16:30 16:30 WBC 5.5 RBC 3.94 L Hgb 13.5 Hct 37.9 MCV 96.2 H MCH 34.2 H MCHC 35.5 RDW 14.9 Plt Count 30 L* MPV 8.6 Absolute Neuts (auto) 3.0 Neutrophils % 53.8 Lymphocytes % 37.0 D Monocytes % 5.6 Eosinophils % 2.4 Basophils % 1.2 Nucleated RBC % 0 Platelet Estimate Decreased Platelet Comment No clumping noted PT with INR INR Sodium 140 Potassium 3.7 Chloride 107 Carbon Dioxide 28 Anion Gap 5 L BUN 2 L* Creatinine 0.3 L Creat Clearance w eGFR 352.03 Random Glucose 111 H Calcium 7.7 L Phosphorus 4.0 Magnesium 2.0 Total Bilirubin 4.4 H AST 120 H ALT 51 Alkaline Phosphatase 202 H Ammonia 61.00 H Total Protein 7.3 Albumin 2.8 L 06/19/18 06/19/18 06/19/18 06:30 06:30 06:30 WBC 3.7 L RBC 3.43 L Hgb 12.0 Hct 33.0 L MCV 96.3 H MCH 35.0 H MCHC 36.4 H RDW 14.8 Plt Count 28 L* MPV 9.2 Absolute Neuts (auto) 1.8 Neutrophils % 49.4 Lymphocytes % 40.3 H Monocytes % 6.4 Eosinophils % 2.9 Basophils % 1.0 Nucleated RBC % 0 Platelet Estimate Platelet Comment PT with INR 23.00 H INR 1.94 H Sodium 138 Potassium 3.6 Chloride 108 H Carbon Dioxide 24 Anion Gap 7 L BUN 3 L Creatinine 0.2 L Creat Clearance w eGFR 562.07 Random Glucose 90 Calcium 7.5 L Phosphorus 3.6 Magnesium 1.8 Total Bilirubin 4.7 H AST 104 H ALT 41 Alkaline Phosphatase 172 H Ammonia Total Protein 6.2 L Albumin 2.4 L 06/19/18 09:55 WBC RBC Hgb Hct MCV MCH MCHC RDW Plt Count MPV Absolute Neuts (auto) Neutrophils % Lymphocytes % Monocytes % Eosinophils % Basophils % Nucleated RBC % Platelet Estimate Platelet Comment PT with INR INR Sodium Potassium Chloride Carbon Dioxide Anion Gap BUN Creatinine Creat Clearance w eGFR Random Glucose Calcium Phosphorus Magnesium Total Bilirubin AST ALT Alkaline Phosphatase Ammonia 97.70 H Total Protein Albumin Active Medications Generic Name Dose Route Start Last Admin Trade Name Freq PRN Reason Stop Dose Admin Lactulose 20 gm 06/18/18 21:46 Cephulac (Oral Use) PO Q8H PRN CONSTIPATION Lorazepam 0.5 mg 06/20/18 23:00 Ativan - PO 06/21/18 23:01 0500,1100,1700,2300 JAIDEN Lorazepam 0.5 mg 06/20/18 23:00 Ativan - PO 06/21/18 23:00 Q4H PRN Symptoms of Withdrawal Lorazepam 1 mg 06/19/18 23:00 Ativan - PO 06/20/18 17:01 0500,1100,1700,2300 JAIDEN Lorazepam 1 mg 06/18/18 21:48 06/19/18 02:47 Ativan - PO 06/20/18 23:00 1 mg Q4H PRN Administration Symptoms of Withdrawal Rifaximin 550 mg 06/18/18 22:00 06/19/18 10:13 Xifaxan - PO 550 mg BID JAIDEN Administration ASSESSMENT/PLAN: 28 y/o M w/ PMHx cirrhosis 2/2 EtOH abuse, grade III varices s/p banding, p/w acute EtOH withdrawal #EtOH withdrawal -ativan protocol -lactulose and rifaximin -d/c to [facility] detox #cirrhosis -chronic LFT derangements -outpt GI f/u #thrombocytopenia -2/2 liver disease -hematology consulted -outpt hematology f/u #FEN -no IVF -monitor and correct electrolytes -regular diet #PPx -DVT: SCDs, early ambulation -GI: not indicated #code -full #dispo -d/c to [facility] detox, otherwise monitor on med/surg Visit type - Emergency Visit Emergency Visit: Yes ED Registration Date: 06/18/18 Care time: The patient presented to the Emergency Department on the above date and was hospitalized for further evaluation of their emergent condition. - New Patient This patient is new to me today: Yes Date on this admission: 06/19/18 - Critical Care Critical Care patient: No
--- NOTE | 2018-06-19 14:32 | PN ---
[facility] Progress Note (SOAP) Subjective: 28 y.o. male referred for consultation for etoh use , reports 3x 24 oz cans of beer/day x 1 week , rel;apse after 2 months ' sobriety , first age of use 15 , denies seizres, blackouts , + tremors if not drinking alcohol, presented to hospital for detox , states was [facility] past , currently uninsured and did not want to go to [facility] for detox . Current symptoms as above , reports improved appetite, on liquid diet per GI . Active Medications Lactulose (Cephulac (Oral Use)) 20 gm PO Q8H PRN PRN Reason: CONSTIPATION Lorazepam (Ativan -) 0.5 mg PO 0500,1100,1700,2300 PENDING SALE TO [facility] Stop: 06/21/18 23:01 Lorazepam (Ativan -) 0.5 mg PO Q4H PRN PRN Reason: Symptoms of Withdrawal Stop: 06/21/18 23:00 Lorazepam (Ativan -) 1 mg PO 0500,1100,1700,2300 PENDING SALE TO [facility] Stop: 06/20/18 17:01 Lorazepam (Ativan -) 1 mg PO Q4H PRN PRN Reason: Symptoms of Withdrawal Stop: 06/20/18 23:00 Last Admin: 06/19/18 14:25 Dose: 1 mg Rifaximin (Xifaxan -) 550 mg PO BID PENDING SALE TO [facility] Last Admin: 06/19/18 10:13 Dose: 550 mg Objective: wnwd , resting in bed comfortably , NAD HEENT : NCAT EOMI mucosae moist Ext : no c/c/e , mild UE tremors Neuro :AAO x 3 , ambulatory , strength 5/5 CBC, BMP 06/19/18 06:30 06/19/18 06:30 Abnormal Lab Results 06/18/18 06/18/18 06/18/18 16:18 16:30 16:30 WBC RBC 3.94 L Hct MCV 96.2 H MCH 34.2 H MCHC Plt Count 30 L* Lymphocytes % PT with INR INR Chloride Anion Gap 5 L BUN 2 L* Creatinine 0.3 L Random Glucose 111 H Calcium 7.7 L Total Bilirubin 4.4 H AST 120 H Alkaline Phosphatase 202 H Ammonia 61.00 H Total Protein Albumin 2.8 L 06/19/18 06/19/18 06/19/18 06:30 06:30 06:30 WBC 3.7 L RBC 3.43 L Hct 33.0 L MCV 96.3 H MCH 35.0 H MCHC 36.4 H Plt Count 28 L* Lymphocytes % 40.3 H PT with INR 23.00 H INR 1.94 H Chloride 108 H Anion Gap 7 L BUN 3 L Creatinine 0.2 L Random Glucose Calcium 7.5 L Total Bilirubin 4.7 H AST 104 H Alkaline Phosphatase 172 H Ammonia Total Protein 6.2 L Albumin 2.4 L 06/19/18 09:55 WBC RBC Hct MCV MCH MCHC Plt Count Lymphocytes % PT with INR INR Chloride Anion Gap BUN Creatinine Random Glucose Calcium Total Bilirubin AST Alkaline Phosphatase Ammonia 97.70 H Total Protein Albumin Vital Signs - 24 hr 06/18/18 06/18/18 06/18/18 16:05 19:18 19:23 Temperature 98.7 F Pulse Rate Pulse Rate [ 120 H 83 Radial] Respiratory 22 H 18 Rate Blood Pressure Blood Pressure 132/76 123/64 [Left Arm] O2 Sat by Pulse 96 98 98 Oximetry (%) 06/18/18 06/19/18 06/19/18 23:45 02:19 02:20 Temperature 98.5 F 98.7 F 98.7 F Pulse Rate 97 H 97 H Pulse Rate [ 104 H Radial] Respiratory 18 17 17 Rate Blood Pressure 146/72 146/72 Blood Pressure 129/77 [Left Arm] O2 Sat by Pulse 97 97 97 Oximetry (%) 06/19/18 06/19/18 06/19/18 05:49 06:00 09:00 Temperature 98.9 F Pulse Rate 105 H Pulse Rate [ Radial] Respiratory 18 20 Rate Blood Pressure 136/68 Blood Pressure [Left Arm] O2 Sat by Pulse 97 99 Oximetry (%) 06/19/18 06/19/18 06/19/18 10:00 11:00 13:23 Temperature 98.5 F 98.6 F Pulse Rate 104 H 98 H Pulse Rate [ Radial] Respiratory 18 20 22 H Rate Blood Pressure 143/68 158/82 Blood Pressure [Left Arm] O2 Sat by Pulse 97 Oximetry (%) Assessment: alcohol dependence Plan: continue current Ativan taper. may benefit from outpatient rehab program . .
--- NOTE | 2018-06-19 15:44 | PN ---
Teaching Attending Note Name of Resident: Arnold Lamas ATTENDING PHYSICIAN STATEMENT I saw and evaluated the patient. I reviewed the resident's note and discussed the case with the resident. I agree with the resident's findings and plan as documented. SUBJECTIVE: Feeling better, less tremulous. Denies nausea/vomiting. No diaphoresis OBJECTIVE: Afebrile, Hemodynamically Stable. Last Vital Signs Temp Pulse Resp BP Pulse Ox 98.6 F 98 H 22 H 158/82 97 06/19/18 13:23 06/19/18 13:23 06/19/18 13:23 06/19/18 13:23 06/19/18 11:00 HEENT - Atraumatic, Normocephalic Heart - S1, S2, RRR Lungs - clear to auscultation, no crackles/wheeze Abdomen - Soft, non-tender. Bowel Sounds normal. Extremities - no edema. No calf tenderness. Laboratory Results - last 24 hr 06/18/18 06/18/18 06/18/18 16:18 16:30 16:30 WBC 5.5 RBC 3.94 L Hgb 13.5 Hct 37.9 MCV 96.2 H MCH 34.2 H MCHC 35.5 RDW 14.9 Plt Count 30 L* MPV 8.6 Absolute Neuts (auto) 3.0 Neutrophils % 53.8 Lymphocytes % 37.0 D Monocytes % 5.6 Eosinophils % 2.4 Basophils % 1.2 Nucleated RBC % 0 Platelet Estimate Decreased Platelet Comment No clumping noted PT with INR INR Sodium 140 Potassium 3.7 Chloride 107 Carbon Dioxide 28 Anion Gap 5 L BUN 2 L* Creatinine 0.3 L Creat Clearance w eGFR 352.03 Random Glucose 111 H Calcium 7.7 L Phosphorus 4.0 Magnesium 2.0 Total Bilirubin 4.4 H AST 120 H ALT 51 Alkaline Phosphatase 202 H Ammonia 61.00 H Total Protein 7.3 Albumin 2.8 L 06/19/18 06/19/18 06/19/18 06:30 06:30 06:30 WBC 3.7 L RBC 3.43 L Hgb 12.0 Hct 33.0 L MCV 96.3 H MCH 35.0 H MCHC 36.4 H RDW 14.8 Plt Count 28 L* MPV 9.2 Absolute Neuts (auto) 1.8 Neutrophils % 49.4 Lymphocytes % 40.3 H Monocytes % 6.4 Eosinophils % 2.9 Basophils % 1.0 Nucleated RBC % 0 Platelet Estimate Platelet Comment PT with INR 23.00 H INR 1.94 H Sodium 138 Potassium 3.6 Chloride 108 H Carbon Dioxide 24 Anion Gap 7 L BUN 3 L Creatinine 0.2 L Creat Clearance w eGFR 562.07 Random Glucose 90 Calcium 7.5 L Phosphorus 3.6 Magnesium 1.8 Total Bilirubin 4.7 H AST 104 H ALT 41 Alkaline Phosphatase 172 H Ammonia Total Protein 6.2 L Albumin 2.4 L 06/19/18 09:55 WBC RBC Hgb Hct MCV MCH MCHC RDW Plt Count MPV Absolute Neuts (auto) Neutrophils % Lymphocytes % Monocytes % Eosinophils % Basophils % Nucleated RBC % Platelet Estimate Platelet Comment PT with INR INR Sodium Potassium Chloride Carbon Dioxide Anion Gap BUN Creatinine Creat Clearance w eGFR Random Glucose Calcium Phosphorus Magnesium Total Bilirubin AST ALT Alkaline Phosphatase Ammonia 97.70 H Total Protein Albumin Current Medications Generic Name Dose Route Start Last Admin Trade Name Freq PRN Reason Stop Dose Admin Lactulose 20 gm 06/18/18 21:46 Cephulac (Oral Use) PO Q8H PRN CONSTIPATION Lorazepam 0.5 mg 06/20/18 23:00 Ativan - PO 06/21/18 23:01 0500,1100,1700,2300 JAIDEN Lorazepam 0.5 mg 06/20/18 23:00 Ativan - PO 06/21/18 23:00 Q4H PRN Symptoms of Withdrawal Lorazepam 1 mg 06/19/18 23:00 Ativan - PO 06/20/18 17:01 0500,1100,1700,2300 JAIDEN Lorazepam 1 mg 06/18/18 21:48 06/19/18 14:25 Ativan - PO 06/20/18 23:00 1 mg Q4H PRN Administration Symptoms of Withdrawal Rifaximin 550 mg 06/18/18 22:00 06/19/18 10:13 Xifaxan - PO 550 mg BID JAIDEN Administration ASSESSMENT/PLAN: 28 year old male with history of Liver Cirrhosis secondary to Alcohol Abuse, Thrombocytopenia, GERD, HTN, presents with tremors, requesting alcohol detox. 1. Acute Alcohol Withdrawal Tremors improving - no hallucinations/seizures Continue Ativan as per [facility] Addiction Medicine consulted. Received Banana Bag Thiamine, Folate, MVI. 2. Liver Cirrhosis with Pancytopenia, Elevated INR, Elevated Ammonia levels, Hyperbilirubinemia Only recently [facility] No prior contact with Hepatology Abdominal US - Fatty Liver versus Hepatocellular Disease Elevated Bilirubin, AST - no evidence of obstruction on US. No fevers. Elevated ammonia levels without confusion/encephalopathy - 3. Thrombocytopenia secondary to Cirrhosis/Alcohol excess Plts 28 No eviodence of bruising/bleeding. Hematology consulted. 4. Alcohol Abuse Addiction Medicine consulted.
[2018-06-19] MEDS: LACTULOSE 20 GM/30 ML UDC (FOR ORAL USE ONLY) PO SCH ×2 (16:04→22:57)
[2018-06-19] MEDS: FOLIC ACID 1 MG TABLET (FP) PO SCH (16:04)
[2018-06-19] MEDS: THIAMINE HCL 100 MG TABLET (FP) PO SCH (16:04)
[2018-06-19] MEDS: LORazepam 1 MG TABLET PO SCH (22:33)
--- NOTE | 2018-06-19 22:34 | CONSULT ---
Consult - text type - Consultation Consultation Note: PAtient seen and examined Cleveland Luna is a 28yo man with a PMH of alcohol abuse, alcoholic cirrhosis, and thrombocytopenia who presents reporting alcohol withdrawal. He states that this morning his hands were shaking, and he felt flushed and sweaty. He drank two 24oz beers to help with the symptoms, which have since improved, but he is starting to feel them coming back. Denies fever/chills/cough/shortness of breath/urinary symptoms/active bleeding - Past Medical History Allergies/Adverse Reactions: Allergies Allergy/AdvReac Type Severity Reaction Status Date / Time No Known Allergies Allergy Verified 06/18/18 12:45 Home Medications: Ambulatory Orders Folic Acid - 1 mg PO DAILY 30 Days #30 tablet 04/01/18 Thiamine HCl [Vitamin B1 -] 100 mg PO DAILY 30 Days #30 tablet 04/01/18 PMH GI Disorders: Yes (GERD) HTN: Yes Liver Disease: Yes (Cirrhosis) - Suicide/Smoking/Psychosocial Hx Smoking History: Former smoker AFVSS Cor: RSR, No murmurs, No gallops Lungs: Clear to P&A Abd: Soft, Normal bowel sounds, No organomegaly Ext:No significant edema A/P Cleveland Luna is a 28yo man with a PMH of alcohol abuse, alcoholic cirrhosis, and thrombocytopenia who presents reporting alcohol withdrawal. He states that this morning his hands were shaking, and he felt flushed and sweaty. He drank two 24oz beers to help with the symptoms, which have since improved, but he is starting to feel them coming back. Denies fever/chills/cough/shortness of breath/urinary symptoms/active bleeding Thrombocytopenia --due to toxic effect of alcohol on arrow + chronic liver disease no active bleeding transfuse monodonor platelets prior to procedures or active bleeding check folic acid/iron studies/ferritin
[2018-06-19] MEDS ORDERED: ONDANSETRON 4 MG/2 ML VIAL IVPB PRN (22:36)
[2018-06-20] MEDS: LORazepam 1 MG TABLET PO SCH ×3 (05:39→17:42)
--- NOTE | 2018-06-20 08:16 | PN ---
Physical Exam: SUBJECTIVE: Patient seen and examined at bedside. Tremor noted prior to last Ativan dose, none since. Otherwise asymptomatic, no acute complaints. OBJECTIVE: Vital Signs Period Temp Pulse Resp BP Sys/Bernard Pulse Ox Last 24 Hr 98 F-99 F 96-104 18-22 143-158/68-82 97-99 GENERAL: A&Ox3, NAD HEENT: NC/AT, PERRLA, EOMI, +scleral icterus NECK: Trachea midline, full range of motion, supple. LUNGS: CTA b/l HEART: tachycardic, no m/r/g ABDOMEN: +bs, soft, NT, ND EXTREMITIES: 2+ pulses, warm, well-perfused, no edema. 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 SKIN: Warm, dry, diffusely jaundiced Laboratory Results - last 24 hr 06/19/18 06/19/18 06/19/18 06:30 06:30 09:55 PT with INR 23.00 H INR 1.94 H Sodium 138 Potassium 3.6 Chloride 108 H Carbon Dioxide 24 Anion Gap 7 L BUN 3 L Creatinine 0.2 L Creat Clearance w eGFR 562.07 Random Glucose 90 Calcium 7.5 L Phosphorus 3.6 Magnesium 1.8 Total Bilirubin 4.7 H AST 104 H ALT 41 Alkaline Phosphatase 172 H Ammonia 97.70 H Total Protein 6.2 L Albumin 2.4 L Active Medications Generic Name Dose Route Start Last Admin Trade Name Freq PRN Reason Stop Dose Admin Folic Acid 1 mg 06/19/18 16:00 06/19/18 16:04 Folic Acid - PO 1 mg DAILY JAIDEN Administration Lactulose 20 gm 06/19/18 15:45 06/19/18 22:57 Cephulac (Oral Use) PO 20 gm Q8H JAIDEN Administration Lorazepam 0.5 mg 06/20/18 23:00 Ativan - PO 06/21/18 23:01 0500,1100,1700,2300 JAIDEN Lorazepam 0.5 mg 06/20/18 23:00 Ativan - PO 06/21/18 23:00 Q4H PRN Symptoms of Withdrawal Lorazepam 1 mg 06/19/18 23:00 06/20/18 05:39 Ativan - PO 06/20/18 17:01 1 mg 0500,1100,1700,2300 JAIDEN Administration Lorazepam 1 mg 06/18/18 21:48 06/19/18 14:25 Ativan - PO 06/20/18 23:00 1 mg Q4H PRN Administration Symptoms of Withdrawal Multivitamins/Minerals/Vitamin C 1 tab 06/20/18 10:00 Tab-A-Vit - PO DAILY JAIDEN Ondansetron HCl 8 mg 06/19/18 22:36 06/20/18 01:59 Zofran Injection IVPB 8 mg Q12H PRN Administration NAUSEA Pantoprazole Sodium 40 mg 06/20/18 10:00 Protonix Iv IVPB DAILY JAIDEN Rifaximin 550 mg 06/18/18 22:00 06/19/18 22:33 Xifaxan - PO 550 mg BID JAIDEN Administration Thiamine HCl 100 mg 06/19/18 16:00 06/19/18 16:04 Vitamin B1 - PO 100 mg DAILY JAIDEN Administration ASSESSMENT/PLAN: 28 y/o M w/ PMHx cirrhosis 2/2 EtOH abuse, grade III varices s/p banding, p/w acute EtOH withdrawal #EtOH withdrawal -ativan protocol -lactulose and rifaximin -unable to transfer to [facility], will complete detox in hospital #cirrhosis -chronic LFT derangements -outpt GI f/u #thrombocytopenia -2/2 liver disease -hematology consulted -outpt hematology f/u #FEN -no IVF -monitor and correct electrolytes -regular diet #PPx -DVT: SCDs, early ambulation -GI: not indicated #code -full #dispo -d/c to [facility] detox, otherwise monitor on med/surg Visit type - Emergency Visit Emergency Visit: No - New Patient This patient is new to me today: No - Critical Care Critical Care patient: No
[2018-06-20] MEDS: LACTULOSE 20 GM/30 ML UDC (FOR ORAL USE ONLY) PO SCH ×3 (09:28→23:42)
[2018-06-20] MEDS: THIAMINE HCL 100 MG TABLET (FP) PO SCH (09:28)
[2018-06-20] MEDS: FOLIC ACID 1 MG TABLET (FP) PO SCH (09:29)
[2018-06-20] MEDS: MULTIVITAMINS (DAILY MVI) TABLET (FP) PO SCH (09:29)
[2018-06-20] MEDS: PANTOPRAZOLE SODIUM 40 MG VIAL IVPB SCH (09:29)
[2018-06-20] MEDS: RIFAXIMIN 550 MG TABLET (UD) PO SCH ×2 (09:29→21:04)
[2018-06-20 10:22] LABS: MCHC 36.1 g/dl (32.0-35.9); RDW 14.4 % (11.9-15.9)
[2018-06-20 10:55] LABS: ALBUMIN 2.9 g/dl (3.4-5.0); ALK PHOS 198 U/L (45-117); ANION GAP 7 MMOL/L (8-16); BILIRUBIN,TOTAL 9.3 mg/dL (0.2-1); BLOOD UREA NITROGEN 6 mg/dL (7-18); CALCIUM 7.6 mg/dL (8.5-10.1); CHLORIDE 102 mmol/L (98-107); CO2 26 mmol/L (21-32); CREATININE 0.7 mg/dL (0.55-1.3); GLUCOSE,RANDOM 147 mg/dL (74-106); MAGNESIUM 1.2 mg/dL (1.8-2.4); POTASSIUM 3.5 mmol/L (3.5-5.1); SGOT/AST 109 U/L (15-37); SGPT/ALT 44 U/L (13-61); SODIUM 135 mmol/L (136-145); TOT PROT 7.3 g/dl (6.4-8.2)
--- NOTE | 2018-06-20 11:21 | PN ---
Teaching Attending Note Name of Resident: Arnold Lamas ATTENDING PHYSICIAN STATEMENT I saw and evaluated the patient. I reviewed the resident's note and discussed the case with the resident. I agree with the resident's findings and plan as documented. SUBJECTIVE: Feeling less tremulous. Denies nausea/vomiting. No diaphoresis OBJECTIVE: Afebrile, Hemodynamically Stable. Last Vital Signs Temp Pulse Resp BP Pulse Ox 98.6 F 96 H 16 150/85 97 06/20/18 08:20 06/20/18 08:20 06/20/18 08:20 06/20/18 08:20 06/20/18 08:50 HEENT - Atraumatic, Normocephalic Heart - S1, S2, RRR Lungs - clear to auscultation, no crackles/wheeze Abdomen - Soft, non-tender. Bowel Sounds normal. Extremities - edema +. No calf tenderness. Neuro - AAO x 3. Mild tongue fasciculations. No further tremor outstretched arms. Laboratory Results - last 24 hr 06/20/18 09:20 Sodium 135 L Potassium 3.5 Chloride 102 Carbon Dioxide 26 Anion Gap 7 L BUN 6 L Creatinine 0.7 Creat Clearance w eGFR 132.41 Random Glucose 147 H Calcium 7.6 L Phosphorus 3.0 Magnesium 1.2 L Total Bilirubin 9.3 H AST 109 H ALT 44 Alkaline Phosphatase 198 H Total Protein 7.3 Albumin 2.9 L Current Medications Generic Name Dose Route Start Last Admin Trade Name Freq PRN Reason Stop Dose Admin Folic Acid 1 mg 06/19/18 16:00 06/20/18 09:29 Folic Acid - PO 1 mg DAILY JAIDEN Administration Lactulose 20 gm 06/19/18 15:45 06/20/18 09:28 Cephulac (Oral Use) PO 20 gm Q8H JAIDEN Administration Lorazepam 0.5 mg 06/20/18 23:00 Ativan - PO 06/21/18 23:01 0500,1100,1700,2300 JAIDEN Lorazepam 0.5 mg 06/20/18 23:00 Ativan - PO 06/21/18 23:00 Q4H PRN Symptoms of Withdrawal Lorazepam 1 mg 06/19/18 23:00 06/20/18 11:18 Ativan - PO 06/20/18 17:01 1 mg 0500,1100,1700,2300 JAIDEN Administration Lorazepam 1 mg 06/18/18 21:48 06/19/18 14:25 Ativan - PO 06/20/18 23:00 1 mg Q4H PRN Administration Symptoms of Withdrawal Multivitamins/Minerals/Vitamin C 1 tab 06/20/18 10:00 06/20/18 09:29 Tab-A-Vit - PO 1 tab DAILY JAIDEN Administration Ondansetron HCl 8 mg 06/19/18 22:36 06/20/18 01:59 Zofran Injection IVPB 8 mg Q12H PRN Administration NAUSEA Pantoprazole Sodium 40 mg 06/20/18 10:00 06/20/18 09:29 Protonix Iv IVPB 40 mg DAILY JAIDEN Administration Rifaximin 550 mg 06/18/18 22:00 06/20/18 09:29 Xifaxan - PO 550 mg BID JAIDEN Administration Thiamine HCl 100 mg 06/19/18 16:00 06/20/18 09:28 Vitamin B1 - PO 100 mg DAILY JAIDEN Administration ASSESSMENT/PLAN: 28 year old male with history of Liver Cirrhosis secondary to Alcohol Abuse, Thrombocytopenia, GERD, HTN, presents with tremors, requesting alcohol detox. 1. Acute Alcohol Withdrawal Tremors improving - no hallucinations/seizures Continue Ativan as per [facility] protocol Addiction Medicine consulted. Received Banana Bag Continue Thiamine, Folate, MVI. 2. Liver Cirrhosis with Pancytopenia, Elevated INR, Hypoalbuminemia, Elevated Ammonia levels, Hyperbilirubinemia Only recently referred to out-patient GI No prior contact with Hepatology Abdominal US - Fatty Liver versus Hepatocellular Disease Fast rising Bilirubin, AST - no evidence of obstruction on US Abdomen. No fevers. Will order MRCP and consult GI. Hepatitis serology requested. Elevated ammonia levels without confusion/encephalopathy - Continue Lactulose, Rifaximin. 3. Thrombocytopenia secondary to Cirrhosis/Alcohol excess Plts 28 06/19 - Today's CBC pending. No evidence of bruising/bleeding. Hematology consulted. 4. Alcohol Abuse - counselled. Addiction Medicine consulted. Unable to be transferred to [facility] due to insurance issues. 5. Hypomagnesemia - repleted. DVT Px - SCDs. Heparin held due to Thrombocytopenia
[2018-06-20] MEDS ORDERED: MAGNESIUM SULF 50% (8.12 MEQ/2 ML-1 GM VIAL) IVPB ONE (11:26)
[2018-06-20 11:45] LABS: BASO % 0.7 % (0-2.0); EOS % 3.8 % (0-4.5); HEMATOCRIT 36.1 % (35.4-49); LYMPH % 25.8 % (8-40); MCH 34.8 pg (25.7-33.7); MEAN CELL VOLUME 96.3 fl (80-96); MEAN PLT VOLUME 9.3 fl (7.5-11.1); MONO % 7.9 % (3.8-10.2); NEUT % 61.8 % (42.8-82.8); RBC 3.74 M/mm3 (4.00-5.60); WHITE BLOOD COUNT 4.3 K/mm3 (4.0-10.0)
[2018-06-20 11:54] LABS: PLATELET COUNT 30 K/MM3 (134-434)
--- NOTE | 2018-06-20 12:37 | CON.GI ---
Consult Consult Specialty:: GI Referred by:: Hospitalist Service Reason for Consultation:: Cirrhosis/ alcoholic hepatitis - History of Present Illness Chief Complaint: Tremors History of Present Illness: 28M admitted 3 days ago for suspected alcohol withdrawal symptoms. He states that he tried stopping alcohol recently but began drinking again. He has been drinking alcohol daily since the age 16-17 and has alcoholic cirrhosis. He was evaluated 05/25 at [facility] at which time he had EGD revealing medium sized varices, portal gastropathy and gastritis. He had prophylactic banding performed but never had variceal bleed. He has been non complicant with beta huyen therapy. He had an MRI/MRCP at that tme that revealed cirrhotic appearing liver with hepatosplenomagaly. MRCP portion of the exam was on diagnostic He had an MRI/MRCP during an admission in 03/24 that revealed cirrhotic appearing liver, enlarged spleen and normal biliary tract. His outpatient medical care is unclear. He states that his PMD is now Dr. Tran Barr on [facility] in [place]. he states that she referred him to a liver specialist in a clinic (? [facility] clinic) however he is uncertain regarding the name or location of the liver specialist. he denies abdominal pain, rectal bleeding, melena. He was born in [place] and has been living [place] the [place] since 1992. He is not a naturalized citizen of the [place]. - History Source History Provided By: Patient, Medical Record - Past Medical History Hepatobiliary: Yes: Cirrhosis (Alcoolic), Other (Alcoholic hepatitis, esophageal varices s/p EVL (non-bleeding) 05/25) - Past Surgical History Additional Surgical History: Denies - Alcohol/Substance Use Hx Alcohol Use: Yes (DAILY) History of Substance Use: reports: None - Smoking History Smoking history: Former smoker Have you smoked in the past 12 months: No Aproximately how many cigarettes per day: 0 - Social History Usual Living Arrangement: With Parent ADL: Independent Place of : Other ([place]) Came to [place]year[place] 1992 History of Recent Travel: No Home Medications - Allergies Allergies/Adverse Reactions: Allergies Allergy/AdvReac Type Severity Reaction Status Date / Time No Known Allergies Allergy Verified 06/18/18 12:45 - Home Medications Home Medications: Ambulatory Orders Folic Acid - 1 mg PO DAILY 30 Days #30 tablet 04/01/18 Thiamine HCl [Vitamin B1 -] 100 mg PO DAILY 30 Days #30 tablet 04/01/18 LORazepam [Ativan] 0.5 mg PO 0500,1100,1700,2300 tablet MDD 2 06/19/18 LORazepam [Ativan] 0.5 mg PO Q4H PRN tablet MDD 3 06/19/18 LORazepam [Ativan] 1 mg PO 0500,1100,1700,2300 tablet MDD 4 06/19/18 LORazepam [Ativan] 1 mg PO Q4H PRN tablet MDD 6 06/19/18 Lactulose (Oral Use) [Cephulac -] 20 gm PO Q8H PRN udc 06/19/18 Rifaximin [Xifaxan -] 550 mg PO BID tablet 06/19/18 Family Disease History - Family Disease History Family Disease History: Diabetes: Grandparent, Other: Father (: with sequela of etoh cirrhosis), Mother (Alive, healthy), Brother (1, healthy), Sister (2, healthy) Other Family History: 3 healthy children. Review of Systems - Review of Systems Constitutional: denies: Chills, Fever, Unintentional Wgt. Loss Cardiovascular: denies: Chest Pain Respiratory: denies: Cough, SOB Gastrointestinal: denies: Abdominal Pain, Melena, Nausea, Rectal Bleeding, Vomiting, Vomiting Blood Neurological: reports: Tremors Physical Exam-GI Vital Signs: Vital Signs Temperature 98.6 F 06/20/18 08:20 Pulse Rate 96 H 06/20/18 08:20 Respiratory Rate 16 06/20/18 08:20 Blood Pressure 150/85 06/20/18 08:20 O2 Sat by Pulse Oximetry (%) 97 06/20/18 08:50 Constitutional: Yes: Calm Eyes: Yes: Sclera Icterus Cardiovascular: Yes: Tachycardia. No: Murmur Respiratory: Yes: CTA Bilaterally Gastrointestinal Inspection: No: Distention ...Auscultate: Yes: Normoactive Bowel Sounds ...Palpate: Yes: Hepatomegaly, Soft. No: Splenomegaly, Tenderness ...Percussion: No: Tympanitic Edema: No (No LE edema) Neurological: Yes: Alert, Oriented (x person, place, time), Tremors. No: Asterixis Labs: CBC, BMP 06/20/18 09:20 06/20/18 09:20 INR, PTT INR 1.94 (0.83-1.09) H 06/19/18 06:30 MELDNa: 24 Maddrey score: 60 Imaging - Results Ultrasound: Report Reviewed (Fatty liver, normal flow in portal vein, no gallstones, non dilated biliary tract) Problem List - Problems (1) Alcoholic hepatitis Assessment/Plan: With underlying alcoholic liver cirrhosis. Explained to the patient that with continued alcohol drinking and wit no improvement in liver status, he has a >50 % chance of over the next year. explained that he needs to completely abstain from alcohol or he will likely expedite his . Ideally, along with a detox program, he should be evaluated at a liver transplant facility. Given his non-resident status, this likely poses a problem in terms of evaluation for OLT. This should be looked into with social work and if he has family in [place] , option would be that he arrange for evaluation at a liver transplant center there as well when his acute issues hopefully resolve. I advsed that he should let his family be aware of how sick he is and how he can from his underlying liver disease. He states that they are aware. For now: Repeat MRI/MRCP ordered (he has had two recent MRI's and abdominal US that revealed a non dilated biliary tract without mass lesion in liver) ETOH withdrawal rx per primary team Continue lactulose for now. Currently not encephalopathic. Will need mental status monitored daily. monitor for excessive diarrhea No urgency to initiate corticosteroids but if no improvement / continued rise in bilirubin / development of HE, given high maddrey score, Prednisolone 40mg once daily can be initiated. will need close outpatient monitoring if on continued prednosolone Will likely need to reach out to his PMD Dr. Tran Barr to clarify where he was actually referred for continued outpatient Liver care. The liver specialist should also be contacted so that follow-up appointment is assured. Clarification regarding citizenship / insurance status Daily liver function tests including INR Overall poor prognosis Code(s): K70.10 - ALCOHOLIC HEPATITIS WITHOUT ASCITES Qualifiers: Ascites presence: without ascites Qualified Code(s): K70.10 - Alcoholic hepatitis without ascites
[2018-06-20] MEDS ORDERED: PT OWN MED DRAWER 7, Y5N ONE (20:55)
[2018-06-20] MEDS: LORazepam 0.5 MG TABLET PO SCH (22:42)
[2018-06-20] MEDS ORDERED: LORazepam 0.5 MG TABLET PO PRN (23:00)
[2018-06-21] MEDS: LORazepam 0.5 MG TABLET PO SCH ×4 (05:31→22:44)
[2018-06-21] MEDS ORDERED: PT OWN MED DRAWER 7, Y5N ONE ×4 (06:25→22:20)
[2018-06-21 08:21] LABS: EOS % 5.4 % (0-4.5); HEMATOCRIT 34.5 % (35.4-49); HEMOGLOBIN 12.8 GM/dL (11.7-16.9); LYMPH % 28.7 % (8-40); MCH 35.4 pg (25.7-33.7); MCHC 37.1 g/dl (32.0-35.9); MEAN CELL VOLUME 95.5 fl (80-96); MEAN PLT VOLUME 9.2 fl (7.5-11.1); MONO % 8.2 % (3.8-10.2); NEUT % 56.7 % (42.8-82.8); RBC 3.62 M/mm3 (4.00-5.60); RDW 14.7 % (11.9-15.9); WHITE BLOOD COUNT 4.1 K/mm3 (4.0-10.0)
[2018-06-21 08:38] LABS: PROTHROMBIN TIME (PATIENT) 23.8 SEC (9.7-13.0)
[2018-06-21 08:40] LABS: ACTIVATED PTT 37.1 SECONDS (25.2-36.5)
[2018-06-21] MEDS: LACTULOSE 20 GM/30 ML UDC (FOR ORAL USE ONLY) PO SCH ×3 (09:28→23:05)
[2018-06-21] MEDS: RIFAXIMIN 550 MG TABLET (UD) PO SCH ×2 (09:29→22:43)
[2018-06-21] MEDS: FOLIC ACID 1 MG TABLET (FP) PO SCH (09:29)
[2018-06-21] MEDS: THIAMINE HCL 100 MG TABLET (FP) PO SCH (09:29)
[2018-06-21] MEDS: PANTOPRAZOLE SODIUM 40 MG VIAL IVPB SCH (09:29)
[2018-06-21] MEDS: MULTIVITAMINS (DAILY MVI) TABLET (FP) PO SCH (09:29)
[2018-06-21 09:47] LABS: ALBUMIN 2.7 g/dl (3.4-5.0); ALK PHOS 182 U/L (45-117); ANION GAP 7 MMOL/L (8-16); BILIRUBIN,TOTAL 7.4 mg/dL (0.2-1); BLOOD UREA NITROGEN 6 mg/dL (7-18); CALCIUM 7.6 mg/dL (8.5-10.1); CHLORIDE 106 mmol/L (98-107); CO2 23 mmol/L (21-32); CREATININE 0.5 mg/dL (0.55-1.3); GLUCOSE,RANDOM 88 mg/dL (74-106); MAGNESIUM 1.6 mg/dL (1.8-2.4); PHOSPHOROUS 3.4 mg/dL (2.5-4.9); POTASSIUM 3.7 mmol/L (3.5-5.1); SGOT/AST 78 U/L (15-37); SGPT/ALT 38 U/L (13-61); SODIUM 137 mmol/L (136-145); TOT PROT 6.8 g/dl (6.4-8.2)
[2018-06-21] MEDS ORDERED: MAGNESIUM SULF 50% (8.12 MEQ/2 ML-1 GM VIAL) IVPB ONE (10:30)
[2018-06-21 10:41] LABS: PLATELET COUNT 31 K/MM3 (134-434)
--- NOTE | 2018-06-21 13:21 | PN ---
GI Progress Note Subjective: States feeling well No acute events Had paperwork with him: has appointment at the [facility] GI clinic 06/24 - Objective Vital Signs: Vital Signs Temperature 98.6 F 06/21/18 07:54 Pulse Rate 76 06/21/18 07:54 Respiratory Rate 16 06/21/18 07:54 Blood Pressure 146/83 06/21/18 07:54 O2 Sat by Pulse Oximetry (%) 97 06/21/18 08:34 Constitutional: Calm Eyes: Yes: Sclera Icterus Cardiovascular: Yes: Regular Rate and Rhythm Respiratory: Yes: CTA Bilaterally Gastrointestinal Inspection: No: Distention ...Auscultate: Yes: Normoactive Bowel Sounds ...Palpate: No: Tenderness ...Percussion: No: Tympanitic Edema: No (No LE edmea) Neurological: Yes: Alert, Oriented. No: Asterixis Labs: CBC, BMP 06/21/18 06:50 06/21/18 06:50 INR, PTT INR 2.00 (0.83-1.09) H 06/21/18 06:50 Fibrinogen 152.0 mg/dL (238-498) L 06/21/18 06:50 Problem List - Problems (1) Alcoholic hepatitis Assessment/Plan: Clinically well No evidence of hepatic encephalopathy If INR continuing to rise, bilirubin without continued improvement, would start Prednisolon4 40mg once daily. AM labs ordered Has follow-up at the [facility] GI clinic 06/24. if his stay is prolonged, the clinic should be contacted to help reschedule his appointment. [phone] Advised complete alcohol cessation Code(s): K70.10 - ALCOHOLIC HEPATITIS WITHOUT ASCITES Qualifiers: Ascites presence: without ascites Qualified Code(s): K70.10 - Alcoholic hepatitis without ascites
--- NOTE | 2018-06-21 13:32 | PN ---
Progress Note (short form) - Note Progress Note: SUBJECTIVE: Feeling well - no further tremor. Denies nausea/vomiting. No diaphoresis OBJECTIVE: Afebrile, Hemodynamically Stable. Last Vital Signs Temp Pulse Resp BP Pulse Ox 98.6 F 76 16 146/83 97 06/21/18 07:54 06/21/18 07:54 06/21/18 07:54 06/21/18 07:54 06/21/18 08:34 HEENT - Atraumatic, Normocephalic Heart - S1, S2, RRR Lungs - clear to auscultation, no crackles/wheeze Abdomen - Soft, non-tender. Bowel Sounds normal. Extremities - edema +. No calf tenderness. Neuro - AAO x 3. No further tremor outstretched arms. Laboratory Results - last 24 hr 06/21/18 06/21/18 06/21/18 06:50 06:50 06:50 WBC 4.1 RBC 3.62 L Hgb 12.8 Hct 34.5 L MCV 95.5 MCH 35.4 H MCHC 37.1 H RDW 14.7 Plt Count 31 L* MPV 9.2 Absolute Neuts (auto) 2.3 Neutrophils % 56.7 Lymphocytes % 28.7 Monocytes % 8.2 Eosinophils % 5.4 H Basophils % 1.0 Nucleated RBC % 0 PT with INR 23.80 H INR 2.00 H PTT (Actin FS) 37.1 H Fibrinogen Sodium 137 Potassium 3.7 Chloride 106 Carbon Dioxide 23 Anion Gap 7 L BUN 6 L Creatinine 0.5 L Creat Clearance w eGFR 195.24 Random Glucose 88 Calcium 7.6 L Phosphorus 3.4 Magnesium 1.6 L Ferritin 355.7 Total Bilirubin 7.4 H AST 78 H ALT 38 Alkaline Phosphatase 182 H Total Protein 6.8 Albumin 2.7 L Vitamin B12 2397 H 06/21/18 06:50 WBC RBC Hgb Hct MCV MCH MCHC RDW Plt Count MPV Absolute Neuts (auto) Neutrophils % Lymphocytes % Monocytes % Eosinophils % Basophils % Nucleated RBC % PT with INR INR PTT (Actin FS) Fibrinogen 152.0 L Sodium Potassium Chloride Carbon Dioxide Anion Gap BUN Creatinine Creat Clearance w eGFR Random Glucose Calcium Phosphorus Magnesium Ferritin Total Bilirubin AST ALT Alkaline Phosphatase Total Protein Albumin Vitamin B12 Current Medications Generic Name Dose Route Start Last Admin Trade Name Freq PRN Reason Stop Dose Admin Folic Acid 1 mg 06/19/18 16:00 06/21/18 09:29 Folic Acid - PO 1 mg DAILY JAIDEN Administration Lactulose 20 gm 06/19/18 15:45 06/21/18 09:28 Cephulac (Oral Use) PO 20 gm Q8H JAIDEN Administration Lorazepam 0.5 mg 06/20/18 23:00 06/21/18 11:06 Ativan - PO 06/21/18 23:01 0.5 mg 0500,1100,1700,2300 JAIDEN Administration Lorazepam 0.5 mg 06/20/18 23:00 Ativan - PO 06/21/18 23:00 Q4H PRN Symptoms of Withdrawal Multivitamins/Minerals/Vitamin C 1 tab 06/20/18 10:00 06/21/18 09:29 Tab-A-Vit - PO 1 tab DAILY JAIDEN Administration Ondansetron HCl 8 mg 06/19/18 22:36 06/20/18 01:59 Zofran Injection IVPB 8 mg Q12H PRN Administration NAUSEA Pantoprazole Sodium 40 mg 06/20/18 10:00 06/21/18 09:29 Protonix Iv IVPB 40 mg DAILY JAIDEN Administration Propranolol HCl 10 mg 06/20/18 18:45 06/21/18 13:10 Inderal - PO 10 mg TID JAIDEN Administration Rifaximin 550 mg 06/18/18 22:00 06/21/18 09:29 Xifaxan - PO 550 mg BID JAIDEN Administration Thiamine HCl 100 mg 06/19/18 16:00 06/21/18 09:29 Vitamin B1 - PO 100 mg DAILY JAIDEN Administration ASSESSMENT/PLAN: 28 year old male with history of Liver Cirrhosis secondary to Alcohol Abuse, Thrombocytopenia, GERD, HTN, presents with tremors, requesting alcohol detox. 1. Acute Alcohol Withdrawal Tremors improving - no hallucinations/seizures Continue Ativan as per [facility] protocol - 1 more day Addiction Medicine consulted. Received Banana Bag Continue Thiamine, Folate, MVI. 2. Liver Cirrhosis with Pancytopenia, Elevated INR, Hypoalbuminemia, Elevated Ammonia levels, Hyperbilirubinemia Only recently referred to out-patient GI, no prior contact with Hepatology Abdominal US - Fatty Liver versus Hepatocellular Disease Elevated Bilirubin, AST - no evidence of obstruction on US Abdomen. No fevers. MRCP and Hepatitis Serology results pending. Elevated ammonia levels without confusion/encephalopathy - Continue Lactulose, Rifaximin. GI following. 3. Thrombocytopenia secondary to Cirrhosis/Alcohol excess Plts 31 No evidence of bruising/bleeding. Hematology consulted. 4. Alcohol Abuse - counselled. Addiction Medicine consulted. Unable to be transferred to [facility] due to insurance issues. 5. Hypomagnesemia - recurrent, repleted. DVT Px - SCDs. Heparin held due to Thrombocytopenia Visit type - Emergency Visit Emergency Visit: Yes ED Registration Date: 06/18/18 Care time: The patient presented to the Emergency Department on the above date and was hospitalized for further evaluation of their emergent condition. - New Patient This patient is new to me today: No - Critical Care Critical Care patient: No - Discharge Referral Referred to [facility] Med P.C.: No
[2018-06-21 14:58] VITALS: BMI 43.1
[2018-06-22 06:45] LABS: BASO % 0.7 % (0-2.0); EOS % 5.7 % (0-4.5); HEMATOCRIT 31.7 % (35.4-49); HEMOGLOBIN 11.5 GM/dL (11.7-16.9); LYMPH % 35.7 % (8-40); MCH 34.6 pg (25.7-33.7); MCHC 36.4 g/dl (32.0-35.9); MEAN PLT VOLUME 8.7 fl (7.5-11.1); MONO % 9.3 % (3.8-10.2); NEUT % 48.6 % (42.8-82.8); RBC 3.33 M/mm3 (4.00-5.60); RDW 14.8 % (11.9-15.9); WHITE BLOOD COUNT 4.1 K/mm3 (4.0-10.0)
[2018-06-22 06:56] LABS: INR 2.24 (0.83-1.09); PROTHROMBIN TIME (PATIENT) 26.7 SEC (9.7-13.0)
[2018-06-22 07:07] LABS: SERUM IRON SATURATION > 92 % (15-55); TOTAL IRON BINDING CAPACITY < 212 ug/dL (250-450); UIBC < 17 ug/dL (111-343)
[2018-06-22 07:24] LABS: PLATELET COUNT 32 K/MM3 (134-434)
[2018-06-22 08:24] LABS: ALBUMIN 2.5 g/dl (3.4-5.0); ALK PHOS 193 U/L (45-117); ANION GAP 7 MMOL/L (8-16); BILIRUBIN,DIRECT 2.3 mg/dL (0.0-0.2); BILIRUBIN,TOTAL 4.6 mg/dL (0.2-1); BLOOD UREA NITROGEN 5 mg/dL (7-18); CALCIUM 7.7 mg/dL (8.5-10.1); CHLORIDE 109 mmol/L (98-107); CO2 22 mmol/L (21-32); CREATININE 0.4 mg/dL (0.55-1.3); GLUCOSE,RANDOM 88 mg/dL (74-106); MAGNESIUM 1.7 mg/dL (1.8-2.4); PHOSPHOROUS 3.6 mg/dL (2.5-4.9); POTASSIUM 3.7 mmol/L (3.5-5.1); SGOT/AST 55 U/L (15-37); SGPT/ALT 31 U/L (13-61); SODIUM 138 mmol/L (136-145); TOT PROT 6.4 g/dl (6.4-8.2)
[2018-06-22] MEDS ORDERED: MAGNESIUM SULF 50% (8.12 MEQ/2 ML-1 GM VIAL) IVPB ONE (08:30)
[2018-06-22] MEDS: LACTULOSE 20 GM/30 ML UDC (FOR ORAL USE ONLY) PO SCH ×2 (08:47→15:37)
[2018-06-22] MEDS: FOLIC ACID 1 MG TABLET (FP) PO SCH (10:00)
[2018-06-22] MEDS: RIFAXIMIN 550 MG TABLET (UD) PO SCH (10:00)
[2018-06-22] MEDS: PANTOPRAZOLE SODIUM 40 MG VIAL IVPB SCH (10:00)
[2018-06-22] MEDS: THIAMINE HCL 100 MG TABLET (FP) PO SCH (10:00)
[2018-06-22] MEDS: MULTIVITAMINS (DAILY MVI) TABLET (FP) PO SCH (10:00)
[2018-06-22 13:16] LABS: HEP.C VIRUS AB 0.3 s/co ratio (0.0-0.9)
[2018-06-22] MEDS ORDERED: PT OWN MED DRAWER 7, Y5N ONE (13:45)
[2018-06-22] MEDS ORDERED: PHYTONADIONE 10 MG/1 ML AMP IVPB ONE (14:10)
--- NOTE | 2018-06-22 14:27 | PN ---
Physical Exam: SUBJECTIVE: Patient seen and examined at bedside. Completed ativan protocol, no further withdrawal symptoms, currently feeling well without complaint. OBJECTIVE: Vital Signs Period Temp Pulse Resp BP Sys/Bernard Pulse Ox Last 24 Hr 97.3 F-98.3 F 80-84 19 111-135/54-72 100 GENERAL: A&Ox3, NAD HEENT: NC/AT, PERRLA, EOMI, +scleral icterus NECK: Trachea midline, full range of motion, supple. LUNGS: CTA b/l HEART: tachycardic, no m/r/g ABDOMEN: +bs, soft, NT, ND EXTREMITIES: 2+ pulses, warm, well-perfused, no edema. 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 SKIN: Warm, dry, diffusely jaundiced Laboratory Results - last 24 hr 06/20/18 06/21/18 06/22/18 14:50 06:50 06:10 WBC 4.1 RBC 3.33 L Hgb 11.5 L Hct 31.7 L MCV 95.0 MCH 34.6 H MCHC 36.4 H RDW 14.8 Plt Count 32 L* MPV 8.7 Absolute Neuts (auto) 2.0 Neutrophils % 48.6 Lymphocytes % 35.7 D Monocytes % 9.3 Eosinophils % 5.7 H Basophils % 0.7 Nucleated RBC % 0 PT with INR INR Sodium Potassium Chloride Carbon Dioxide Anion Gap BUN Creatinine Creat Clearance w eGFR Random Glucose Calcium Phosphorus Magnesium Iron 195 H TIBC < 212 L Iron Saturation > 92 H Total Bilirubin Direct Bilirubin AST ALT Alkaline Phosphatase Total Protein Albumin Hepatitis A IgM Ab Negative Hep Bs Antigen Negative Hep B Core IgM Ab Negative Hepatitis C Antibody 0.3 06/22/18 06/22/18 06:10 06:10 WBC RBC Hgb Hct MCV MCH MCHC RDW Plt Count MPV Absolute Neuts (auto) Neutrophils % Lymphocytes % Monocytes % Eosinophils % Basophils % Nucleated RBC % PT with INR 26.70 H INR 2.24 H Sodium 138 Potassium 3.7 Chloride 109 H Carbon Dioxide 22 Anion Gap 7 L BUN 5 L Creatinine 0.4 L Creat Clearance w eGFR 252.58 Random Glucose 88 Calcium 7.7 L Phosphorus 3.6 Magnesium 1.7 L Iron TIBC Iron Saturation Total Bilirubin 4.6 H Direct Bilirubin 2.3 H AST 55 H ALT 31 Alkaline Phosphatase 193 H Total Protein 6.4 Albumin 2.5 L Hepatitis A IgM Ab Hep Bs Antigen Hep B Core IgM Ab Hepatitis C Antibody Active Medications Generic Name Dose Route Start Last Admin Trade Name Adalid PRN Reason Stop Dose Admin Folic Acid 1 mg 06/19/18 16:00 06/22/18 10:00 Folic Acid - PO 1 mg DAILY JAIDEN Administration Lactulose 20 gm 06/19/18 15:45 06/22/18 08:47 Cephulac (Oral Use) PO 20 gm Q8H JAIDEN Administration Multivitamins/Minerals/Vitamin C 1 tab 06/20/18 10:00 06/22/18 10:00 Tab-A-Vit - PO 1 tab DAILY JAIDEN Administration Ondansetron HCl 8 mg 06/19/18 22:36 06/20/18 01:59 Zofran Injection IVPB 8 mg Q12H PRN Administration NAUSEA Pantoprazole Sodium 40 mg 06/20/18 10:00 06/22/18 10:00 Protonix Iv IVPB 40 mg DAILY JAIDEN Administration Phytonadione 1 mg 06/22/18 14:10 Aqua Mephyton Injection - IVPB 06/22/18 14:11 ONCE ONE Propranolol HCl 10 mg 06/20/18 18:45 06/22/18 13:50 Inderal - PO 10 mg TID JAIDEN Administration Rifaximin 550 mg 06/18/18 22:00 06/22/18 10:00 Xifaxan - PO 550 mg BID JAIDEN Administration Thiamine HCl 100 mg 06/19/18 16:00 06/22/18 10:00 Vitamin B1 - PO 100 mg DAILY JAIDEN Administration ASSESSMENT/PLAN: 28 y/o M w/ PMHx cirrhosis 2/2 EtOH abuse, grade III varices s/p banding, p/w acute EtOH withdrawal #liver cirrhosis -chronic LFT derangements, unlikely to represent acute alcoholic hepatitis -bilirubin downtrending -INR uptrending -cont lactulose, rifaximin -GI consulted, recommendations appreciated -cont propranolol -in light of rising INR, consider need for steroids vs. NAC -at this time, BCx, UCx, vitamin K -trend INR, LFTs #EtOH withdrawal -completed ativan protocol -cont thiamine and folate -counseled on abstinence #thrombocytopenia -2/2 liver disease -hematology consulted -outpt hematology f/u #FEN -no IVF -monitor and correct electrolytes -regular diet #PPx -DVT: SCDs, early ambulation -GI: not indicated #code -full #dispo -cont to monitor on med/surg Visit type - Emergency Visit Emergency Visit: No - New Patient This patient is new to me today: No - Critical Care Critical Care patient: No
--- NOTE | 2018-06-22 14:38 | PN ---
Progress Note (short form) - Note Progress Note: Patient seen and examined labs reviewed Discussed with pt and zenaida at bedside No new complaints. No withdrawal sx. No confusion, abdominal pain/swelling. Vital Signs Temp 98.1 F 06/22/18 09:00 Pulse 80 06/22/18 09:00 Resp 19 06/21/18 19:00 BP 133/62 06/22/18 09:00 Pulse Ox 100 06/22/18 09:00 NAD +icterus No asterixis INR, PTT INR 2.24 (0.83-1.09) H 06/22/18 06:10 Fibrinogen 152.0 mg/dL (238-498) L 06/21/18 06:50 Hepatic Panel Total Bilirubin 4.6 mg/dL (0.2-1) H 06/22/18 06:10 Direct Bilirubin 2.3 mg/dL (0.0-0.2) H 06/22/18 06:10 AST 55 U/L (15-37) H 06/22/18 06:10 ALT 31 U/L (13-61) 06/22/18 06:10 Alkaline Phosphatase 193 U/L (45-117) H 06/22/18 06:10 Albumin 2.5 g/dl (3.4-5.0) L 06/22/18 06:10 CBC, BMP 06/22/18 06:10 06/22/18 06:10 28M with ETOH cirrhosis, possible component of ETOH hepatitis. Now out of withdrawal. Unclear to me if there is truly a component of ETOH hepatitis here (no WBC count , alk phos is stable) vs acute on chronic liver disease. INR rising is of concern Would abdi cx Trial of vitamin K to reverse INR - daily for 3 days Would consider steroids if good evidence to suggest acute ETOH hepatitis GI to follow
[2018-06-22 15:17] VITALS: BP 131/60; PULSE 72; TEMP 98
--- NOTE | 2018-06-22 15:37 | DS ---
Physical Exam: SUBJECTIVE: Patient seen and examined at bedside. Completed ativan protocol, no further withdrawal symptoms, currently feeling well without complaint. OBJECTIVE: Vital Signs Period Temp Pulse Resp BP Sys/Bernard Pulse Ox Last 24 Hr 97.3 F-98.3 F 72-84 19 111-135/54-72 100 PHYSICAL EXAM GENERAL: A&Ox3, NAD HEENT: NC/AT, PERRLA, EOMI, +scleral icterus NECK: Trachea midline, full range of motion, supple. LUNGS: CTA b/l HEART: tachycardic, no m/r/g ABDOMEN: +bs, soft, NT, ND EXTREMITIES: 2+ pulses, warm, well-perfused, no edema. 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 SKIN: Warm, dry, diffusely jaundiced LABS Laboratory Results - last 24 hr 06/20/18 06/21/18 06/22/18 14:50 06:50 06:10 WBC 4.1 RBC 3.33 L Hgb 11.5 L Hct 31.7 L MCV 95.0 MCH 34.6 H MCHC 36.4 H RDW 14.8 Plt Count 32 L* MPV 8.7 Absolute Neuts (auto) 2.0 Neutrophils % 48.6 Lymphocytes % 35.7 D Monocytes % 9.3 Eosinophils % 5.7 H Basophils % 0.7 Nucleated RBC % 0 PT with INR INR Sodium Potassium Chloride Carbon Dioxide Anion Gap BUN Creatinine Creat Clearance w eGFR Random Glucose Calcium Phosphorus Magnesium Iron 195 H TIBC < 212 L Iron Saturation > 92 H Total Bilirubin Direct Bilirubin AST ALT Alkaline Phosphatase Total Protein Albumin Hepatitis A IgM Ab Negative Hep Bs Antigen Negative Hep B Core IgM Ab Negative Hepatitis C Antibody 0.3 06/22/18 06/22/18 06:10 06:10 WBC RBC Hgb Hct MCV MCH MCHC RDW Plt Count MPV Absolute Neuts (auto) Neutrophils % Lymphocytes % Monocytes % Eosinophils % Basophils % Nucleated RBC % PT with INR 26.70 H INR 2.24 H Sodium 138 Potassium 3.7 Chloride 109 H Carbon Dioxide 22 Anion Gap 7 L BUN 5 L Creatinine 0.4 L Creat Clearance w eGFR 252.58 Random Glucose 88 Calcium 7.7 L Phosphorus 3.6 Magnesium 1.7 L Iron TIBC Iron Saturation Total Bilirubin 4.6 H Direct Bilirubin 2.3 H AST 55 H ALT 31 Alkaline Phosphatase 193 H Total Protein 6.4 Albumin 2.5 L Hepatitis A IgM Ab Hep Bs Antigen Hep B Core IgM Ab Hepatitis C Antibody HOSPITAL COURSE: Date of Admission:06/18/18 Patient is a 28 y/o M w/ PMHx cirrhosis 2/2 EtOH abuse, grade III varices s/p banding, who presented with acute EtOH withdrawal. He was started on and completed Ativan detoxification protocol and was free of withdrawal symptoms. Abd US identified cirrhotic liver without acute pathology. GI was consulted and recommended MRCP. Liver and coagulation panels were trended. INR steadily monika. GI recommended abdi-culture, vitamin K, and consideration of steroids. Patient was extensively counseled on his poor prognosis and potential need for liver transplant, and the absolute need to cease all EtOH consumption. Prior to official MRCP report, patient elected to leave against medical advice with the stated intention of presenting himself for treatment at a tertiary center. No indication for tertiary center transfer existed at that time. The risks of leaving against medical advice, including and permanent injury, were explained to him at length. He was urged to abstain from EtOH completeely, and to follow closely with hepatology. Date of Discharge: 06/22/18 Minutes to complete discharge: 40 Discharge Summary Reason For Visit: ALCOHOL WITHDRAWAL SYNDROME HYPERBILIRUBINEMIA Current Active Problems Alcohol withdrawal (Acute) Alcoholic hepatitis (Acute) Hyperbilirubinemia (Acute) Thrombocytopenia (Chronic) Condition: Guarded - Instructions Diet, Activity, Other Instructions: You were hospitalized for alcohol withdrawal and detoxification. The liver cirrhosis with which you were previously diagnosed was appreciated again. You were noted to have derangements of your liver studies and disordered coagulation of your blood. Gastroenterology recommended ongoing inpatient hospitalization and treatment. However, you elected to leave against medical advice and stated a plan to present yourself for treatment at [facility]. The risks of leaving against medical advice, including and permanent disability, were explained to you at length. You were urged to remain abstinent from any alcohol consumption and to follow closely with hepatology. Disposition: AGAINST MEDICAL ADVICE - Home Medications Comprehensive Discharge Medication List: Ambulatory Orders Folic Acid - 1 mg PO DAILY 30 Days #30 tablet 04/01/18 Thiamine HCl [Vitamin B1 -] 100 mg PO DAILY 30 Days #30 tablet 04/01/18 LORazepam [Ativan] 0.5 mg PO 0500,1100,1700,2300 tablet MDD 2 06/19/18 LORazepam [Ativan] 0.5 mg PO Q4H PRN tablet MDD 3 06/19/18 LORazepam [Ativan] 1 mg PO 0500,1100,1700,2300 tablet MDD 4 06/19/18 LORazepam [Ativan] 1 mg PO Q4H PRN tablet MDD 6 06/19/18 Lactulose (Oral Use) [Cephulac -] 20 gm PO Q8H PRN udc 06/19/18 Rifaximin [Xifaxan -] 550 mg PO BID tablet 06/19/18 This patient is new to me today: No Emergency Visit: No Critical Care patient: No - Discharge Referral Referred to [facility] Med P.C.: No
--- NOTE | 2018-06-22 18:08 | PN ---
Teaching Attending Note Name of Resident: Arnold Lamas ATTENDING PHYSICIAN STATEMENT I saw and evaluated the patient. I reviewed the resident's note and discussed the case with the resident. I agree with the resident's findings and plan as documented. SUBJECTIVE: Feeling well - no further tremor. Denies nausea/vomiting. No diaphoresis OBJECTIVE: Afebrile, Hemodynamically Stable. Last Vital Signs Temp Pulse Resp BP Pulse Ox 98.0 F 72 19 131/60 100 06/22/18 15:15 06/22/18 15:15 06/21/18 19:00 06/22/18 15:15 06/22/18 09:00 Heart - S1, S2, RRR Lungs - clear to auscultation, no crackles/wheeze Abdomen - Soft, non-tender. Bowel Sounds normal. Extremities - edema +. No calf tenderness. Neuro - AAO x 3. No further tremor outstretched arms. Laboratory Results - last 24 hr 06/20/18 06/21/18 06/22/18 14:50 06:50 06:10 WBC 4.1 RBC 3.33 L Hgb 11.5 L Hct 31.7 L MCV 95.0 MCH 34.6 H MCHC 36.4 H RDW 14.8 Plt Count 32 L* MPV 8.7 Absolute Neuts (auto) 2.0 Neutrophils % 48.6 Lymphocytes % 35.7 D Monocytes % 9.3 Eosinophils % 5.7 H Basophils % 0.7 Nucleated RBC % 0 PT with INR INR Sodium Potassium Chloride Carbon Dioxide Anion Gap BUN Creatinine Creat Clearance w eGFR Random Glucose Calcium Phosphorus Magnesium Iron 195 H TIBC < 212 L Iron Saturation > 92 H Total Bilirubin Direct Bilirubin AST ALT Alkaline Phosphatase Total Protein Albumin Hepatitis A IgM Ab Negative Hep Bs Antigen Negative Hep B Core IgM Ab Negative Hepatitis C Antibody 0.3 06/22/18 06/22/18 06:10 06:10 WBC RBC Hgb Hct MCV MCH MCHC RDW Plt Count MPV Absolute Neuts (auto) Neutrophils % Lymphocytes % Monocytes % Eosinophils % Basophils % Nucleated RBC % PT with INR 26.70 H INR 2.24 H Sodium 138 Potassium 3.7 Chloride 109 H Carbon Dioxide 22 Anion Gap 7 L BUN 5 L Creatinine 0.4 L Creat Clearance w eGFR 252.58 Random Glucose 88 Calcium 7.7 L Phosphorus 3.6 Magnesium 1.7 L Iron TIBC Iron Saturation Total Bilirubin 4.6 H Direct Bilirubin 2.3 H AST 55 H ALT 31 Alkaline Phosphatase 193 H Total Protein 6.4 Albumin 2.5 L Hepatitis A IgM Ab Hep Bs Antigen Hep B Core IgM Ab Hepatitis C Antibody Current Medications Generic Name Dose Route Start Last Admin Trade Name Freq PRN Reason Stop Dose Admin Folic Acid 1 mg 06/19/18 16:00 06/22/18 10:00 Folic Acid - PO 1 mg DAILY JAIDEN Administration Lactulose 20 gm 06/19/18 15:45 06/22/18 15:37 Cephulac (Oral Use) PO 20 gm Q8H JAIDEN Administration Multivitamins/Minerals/Vitamin C 1 tab 06/20/18 10:00 06/22/18 10:00 Tab-A-Vit - PO 1 tab DAILY JAIDEN Administration Ondansetron HCl 8 mg 06/19/18 22:36 06/20/18 01:59 Zofran Injection IVPB 8 mg Q12H PRN Administration NAUSEA Pantoprazole Sodium 40 mg 06/20/18 10:00 06/22/18 10:00 Protonix Iv IVPB 40 mg DAILY JAIDEN Administration Propranolol HCl 10 mg 06/20/18 18:45 06/22/18 13:50 Inderal - PO 10 mg TID JAIDEN Administration Rifaximin 550 mg 06/18/18 22:00 06/22/18 10:00 Xifaxan - PO 550 mg BID JAIDEN Administration Thiamine HCl 100 mg 06/19/18 16:00 06/22/18 10:00 Vitamin B1 - PO 100 mg DAILY JAIDEN Administration ASSESSMENT/PLAN: 28 year old male with history of Liver Cirrhosis secondary to Alcohol Abuse, Thrombocytopenia, GERD, HTN, presents with tremors, requested alcohol detox. 1. Acute Alcohol Withdrawal Tremors improved - no hallucinations/seizures Completed Ativan detox protocol. Addiction Medicine consulted. Continue Thiamine, Folate, MVI. 2. Liver Cirrhosis with Pancytopenia, Elevated INR, Hypoalbuminemia, Elevated Ammonia levels, Hyperbilirubinemia Only recently referred to out-patient GI, no prior contact with Hepatology Abdominal US - Fatty Liver versus Hepatocellular Disease Elevated Bilirubin, AST - no evidence of obstruction on US Abdomen. No fevers. MRCP - Cirrhotic Liver with splenomegaly and varices, distended GB, 1.6cm T11 focus - no change from prior MRI - MRI L Spine recommended for further evaluation. Hepatitis Serology negative Elevated ammonia levels without confusion/encephalopathy - Continue Lactulose, Rifaximin. GI recommends Vitamin K for elevated INR and further hospitalization for monitoring of Liver parameters and for commencement of possible Steroid therapy - patient declined further hospitalization - he has follow up with Hepatology at [facility] on 06/24. He left against medical advice after adequate counselling regarding risks. He agreed to Vitamin K prior to leaving [facility]. 3. Thrombocytopenia secondary to Cirrhosis/Alcohol excess Plts 31 No evidence of bruising/bleeding. 4. Alcohol Abuse - counselled. Addiction Medicine consulted. Unable to be transferred to [facility] due to insurance issues. 5. Hypomagnesemia - recurrent, repleted. DVT Px - SCDs. Heparin held due to Thrombocytopenia
== END 2018-06-22 20:01 | disposition left against medical advice (07) | DRG 770 ==
LOC: JER 11:50 → J6S 19:10
PROVIDERS: ADMIT Internal Medicine
PROC: HZ2ZZZZ Detoxification Services for Substance Abuse Treatment (ICD-10-PCS; principal; 2018-06-18)
DX: F10.230 Alcohol dependence with withdrawal, uncomplicated (principal); R00.0 Tachycardia, unspecified; K76.6 Portal hypertension; K70.10 Alcoholic hepatitis without ascites; D69.6 Thrombocytopenia, unspecified; E80.6 Other disorders of bilirubin metabolism; K70.30 Alcoholic cirrhosis of liver without ascites; E83.42 Hypomagnesemia; D61.818 Other pancytopenia; E66.01 Morbid (severe) obesity due to excess calories; Z68.41 Body mass index [BMI] 40.0-44.9, adult; E88.09 Other disorders of plasma-protein metabolism, not elsewhere classified; K21.9 Gastro-esophageal reflux disease without esophagitis; I10 Essential (primary) hypertension; D68.9 Coagulation defect, unspecified; R44.3 Hallucinations, unspecified; R16.1 Splenomegaly, not elsewhere classified; R16.0 Hepatomegaly, not elsewhere classified; D68.4 Acquired coagulation factor deficiency; Z87.891 Personal history of nicotine dependence
CPT/HCPCS: 36415; 71046-TC-FY; 74182-TC; 76705-TC; 80048; 80053; 80074; 80076; 82140; 82607; 82728; 82747; 83540; 83550; 83735; 84100; 85014; 85025; 85384; 85610; 85730; 87040; 87086; 93005; 93010; 99285-25; A9579; J7030

== ENCOUNTER 2018-07-08 16:39 | Inpatient (IN) | payer SELFPAY ==
--- NOTE | 2018-07-08 18:51 | HP ---
CIWA Score Nausea/Vomitin-Mild Nausea/No Vomiting Muscle Tremors: 2 Anxiety: 1-Mildly Anxious Agitation: 1-Slight > Activity Paroxysmal Sweats: 1-Minimal Palms Moist Orientation: 0-Oriented Tacttile Disturbances: 0-None Auditory Disturbances: 0-None Visual Disturbances: 0-None Headache: 0-None Present CIWA-Ar Total Score: 6 - Admission Criteria OASAS Guidelines: Admission for Medically Managed Detox: Requires at least one of the followin. CIWA greater than 12 2. Seizures within the past 24 hours 3. Delirium tremens within the past 24 hours 4. Hallucinations within the past 24 hours 5. Acute intervention needed for co occurring medical disorder 6. Acute intervention needed for co occurring psychiatric disorder 7. Severe withdrawal that cannot be handled at a lower level of care (continued vomiting, continued diarrhea, abnormal vital signs) requiring intravenous medication and/or fluids 8. Patient presents the following: Acute intervention needed for co-occurring med or psych disorder (pt has severe liver cirrhosis with esophageal varices) Admission Criteria Met: Admission criteria met Admission ROS [facility] Chief Complaint: alcohol detox Pt was recently- 06/22/18- discharged from [facility] after admission for cirrhosis/ detox: "Patient is a 28 y/o M w/ PMHx cirrhosis 2/2 EtOH abuse, grade III varices s/p banding, who presented with acute EtOH withdrawal. He was started on and completed Ativan detoxification protocol but left AMA before completing eval for management of varices. Pt states that since he left the hospital he has been drinking upto 3 --24 oz cans of alcohol- ASHA level 0.358. Pt states he has withdrawal Sx and returns here for managment of these Sx. Denies other illicit drug use. Utox- pos for BZO Allergies/Adverse Reactions: Allergies Allergy/AdvReac Type Severity Reaction Status Date / Time No Known Allergies Allergy Verified 06/18/18 12:45 Exam Limitations: No Limitations - Ebola screening Have you traveled outside of the country in the last 21 days: No (N) Have you had contact with anyone from an Ebola affected area: No Do you have a fever: No - Review of Systems Constitutional: No Symptoms Reported Patient History - Patient Medical History Hx Anemia: No Hx Asthma: No Hx Chronic Obstructive Pulmonary Disease (COPD): No Hx Cancer: No Hx Cardiac Disorders: No Hx Congestive Heart Failure: No Hx Hypertension: Yes Hx Hypercholesterolemia: No Hx Pacemaker: No HX Cerebrovascular Accident: No Hx Seizures: No Hx Dementia: No Hx Diabetes: No Hx Gastrointestinal Disorders: Yes (GERD) Hx Liver Disease: Yes (Cirrhosis, varices) Hx Genitourinary Disorders: No Hx Sexually Transmitted Disorders: No Hx Renal Disease (ESRD): No Hx Thyroid Disease: No Hx Human Immunodeficiency Virus (HIV): No Hx Hepatitis C: No Hx Depression: No Hx Suicide Attempt: No Hx Bipolar Disorder: No Hx Schizophrenia: No - Patient Surgical History Past Surgical History: No Hx Neurologic Surgery: No Hx Cataract Extraction: No Hx Cardiac Surgery: No Hx Lung Surgery: No Hx Breast Surgery: No Hx Breast Biopsy: No Hx Abdominal Surgery: No Hx Appendectomy: No Hx Cholecystectomy: No Hx Genitourinary Surgery: No Hx Section: No Hx Orthopedic Surgery: No Hx Hysterectomy: No Anesthesia Reaction: No - PPD History Date: 07/25/17 Results: NEGATIVE - Smoking Cessation Smoking history: Former smoker Have you smoked in the past 12 months: No Aproximately how many cigarettes per day: 0 Cigars Per Day: 0 Hx Chewing Tobacco Use: No Initiated information on smoking cessation: No - Substances abused Alcohol Substance route: Oral Frequency: 3-6 times per week Amount used: 24 ounces cans Age of first use: 14 Date of last use: 07/08/18 Family Disease History - Family Disease History Family Disease History: Diabetes: Grandparent, Other: Father (: with sequela of etoh cirrhosis), Mother (Alive, healthy), Brother (1, healthy), Sister (2, healthy) Admission Physical Exam S - Vital Signs Vital Signs: Vital Signs - 24 hr 07/08/18 17:16 Temperature 98.2 F Pulse Rate 126 H Respiratory 16 Rate Blood Pressure 157/81 - Physical General Appearance: Yes: Within Normal Limits, Other (obese) HEENTM: Yes: Within Normal Limits (injected conjuctiva- pt states irritation from contacts) Respiratory: Yes: Within Normal Limits Neck: Yes: Within Normal Limits Breast: Yes: Breast Exam Deferred Cardiology: Yes: Within Normal Limits, S1, S2 Abdominal: Yes: Within Normal Limits, Normal Bowel Sounds, Organomegaly Back: Yes: Within Normal Limits, Normal Inspection Musculoskeletal: Yes: Within Normal Limits Extremities: Yes: Within Normal Limits, Other (trace) Integumentary: Yes: Within Normal Limits Lymphatic: Yes: Within Normal Limits - Diagnostic (1) Alcohol dependence with uncomplicated withdrawal Current Visit: No Status: Acute (2) HTN (hypertension) Current Visit: No Status: Chronic Qualifiers: Hypertension type: essential hypertension Qualified Code(s): I10 - Essential (primary) hypertension (3) Jaundice Current Visit: No Status: Chronic (4) Liver cirrhosis, alcoholic Current Visit: No Status: Chronic Qualifiers: Ascites presence: unspecified Qualified Code(s): K70.30 - Alcoholic cirrhosis of liver without ascites Breathalyzer - Breathalyzer Breathalyzer: 0.358 Urine Drug Screen - Test Device Lot number: [id number] Expiration date: 07/05/19 - Control Is test valid?: No - Results Drug screen NEGATIVE: No Urine drug screen results: BZO-Benzodiazepines Inpatient Rehab Admission - Rehab Decision to Admit Inpatient rehab admission?: No
[2018-07-08] MEDS ORDERED: METHOCARBAMOL 500 MG TABLET PO PRN (18:53)
[2018-07-08] MEDS ORDERED: MELATONIN 5 MG TABLETS PO PRN (18:53)
[2018-07-08] MEDS ORDERED: BISMUTH SUBSALICYLATE 524 MG/30 ML UD PO PRN (18:53)
[2018-07-08] MEDS ORDERED: MENTHOL/PHENOL 1 EACH UD MM PRN (18:53)
[2018-07-08] MEDS ORDERED: IBUPROFEN 400 MG TABLET (FP) PO PRN (18:53)
[2018-07-08] MEDS ORDERED: hydrOXYzine PAMOATE 25 MG CAPSULE (FP) PO PRN (18:53)
[2018-07-08] MEDS ORDERED: MAGNESIUM HYDROX 2400MG/30ML ORAL SUSPENSION 30 ML CUP PO PRN (18:53)
[2018-07-08] MEDS ORDERED: MAGNESIUM CITRATE 300 ML BOTTLE PO PRN (18:53)
[2018-07-08] MEDS ORDERED: MAG HYDROX/AL HYDROX/SIMETH 30 ML UNIT-DOSE CUP PO PRN (18:53)
[2018-07-08] MEDS ORDERED: LORazepam 1 MG TABLET PO PRN (18:54)
[2018-07-08] MEDS ORDERED: LORazepam 2 MG TABLET PO ONE (19:45)
[2018-07-08] MEDS ORDERED: THIAMINE HCL 100 MG TABLET (FP) PO SCH (22:00)
[2018-07-08] MEDS: LORazepam 2 MG TABLET PO SCH (22:41)
[2018-07-09] MEDS: LORazepam 2 MG TABLET PO SCH ×3 (05:15→18:55)
[2018-07-09] MEDS ORDERED: PRENATAL VITAMINS W/ FOLIC ACID TABLET (FP) PO SCH (10:00)
[2018-07-09 10:09] LABS: ALBUMIN 2.5 g/dl (3.4-5.0); ALK PHOS 180 U/L (45-117); ANION GAP 8 MMOL/L (8-16); BILIRUBIN,TOTAL 2.7 mg/dL (0.2-1); BLOOD UREA NITROGEN 4 mg/dL (7-18); CALCIUM 7.2 mg/dL (8.5-10.1); CHLORIDE 108 mmol/L (98-107); CO2 27 mmol/L (21-32); CREATININE 0.4 mg/dL (0.55-1.3); GLUCOSE,RANDOM 121 mg/dL (74-106); POTASSIUM 3.6 mmol/L (3.5-5.1); SGOT/AST 89 U/L (15-37); SGPT/ALT 45 U/L (13-61); SODIUM 143 mmol/L (136-145); TOT PROT 5.9 g/dl (6.4-8.2)
[2018-07-09 10:21] LABS: HEMATOCRIT 31.9 % (35.4-49); HEMOGLOBIN 11.1 GM/dL (11.7-16.9); MCH 33.4 pg (25.7-33.7); MCHC 34.6 g/dl (32.0-35.9); MEAN CELL VOLUME 96.5 fl (80-96); MEAN PLT VOLUME 8.6 fl (7.5-11.1); PLATELET COUNT 40 K/MM3 (134-434); RBC 3.31 M/mm3 (4.00-5.60); RDW 14.9 % (11.9-15.9); WHITE BLOOD COUNT 3.5 K/mm3 (4.0-10.0)
--- NOTE | 2018-07-09 16:35 | PN ---
[facility] CIWA - CIWA Score Nausea/Vomitin-No Nausea/No Vomiting Muscle Tremors: None Anxiety: 2 Agitation: 1-Slight > Activity Paroxysmal Sweats: No Perspiration Orientation: 0-Oriented Tacttile Disturbances: 2-Mild Itch/Numbness/Burn Auditory Disturbances: 0-None Visual Disturbances: 2-Mild Sensitivity Headache: 0-None Present CIWA-Ar Total Score: 7 BHS Progress Note (SOAP) Subjective: Anxious, Fatigue. Patient Reports that Current Withdrawal/Detox Symptoms are mild in degree thus far. Objective: PATIENT A & O X 3, OBSERVED AMBULATING ON UNIT. IN NO ACUTE DISTRESS. 07/09/18 16:32 Vital Signs Temperature 98.5 F 07/09/18 13:48 Pulse Rate 98 H 07/09/18 16:07 Respiratory Rate 16 07/09/18 14:30 Blood Pressure 105/59 L 07/09/18 13:48 O2 Sat by Pulse Oximetry (%) Laboratory Tests 07/09/18 07/09/18 07/09/18 07:00 07:00 07:00 WBC 3.5 L RBC 3.31 L Hgb 11.1 L Hct 31.9 L MCV 96.5 H MCH 33.4 MCHC 34.6 RDW 14.9 Plt Count 40 L D MPV 8.6 Sodium 143 Potassium 3.6 Chloride 108 H Carbon Dioxide 27 Anion Gap 8 BUN 4 L Creatinine 0.4 L Creat Clearance w eGFR 252.58 Random Glucose 121 H Calcium 7.2 L Total Bilirubin 2.7 H AST 89 H ALT 45 Alkaline Phosphatase 180 H Total Protein 5.9 L Albumin 2.5 L RPR Titer Nonreactive LABS NOTED. PATIENT HAS HAD LOW WBC, HGB, HCT, RBC, PLT, AND CA LEVELS ON SEVERAL PREVIOUS ADMISSIONS. 07/09/18 16:36 Assessment: 07/09/18 16:32 WITHDRAWAL SYMPTOMS. PANCYTOPENIA. HYPOCALCEMIA. ELEVATED LIVER ENZYMES. PATIENT REPORTS HISTORY OF CIRRHOSIS OF LIVER. Plan: CONTINUE DETOX. OSCAL, 500 MG PO BID FOR HYPOCALCEMIA. PATIENT IS CURRENTLY RECEIVING DAILY MVI CONTAINING B VITAMINS AND IRON WHILE ADMITTED FOR DETOX. SINCE PATIENT REPORTS THAT CURRENT WITHDRAWAL SYMPTOMS ARE QUITE TOLERABLE IN DEGREE THUS FAR, AT HIS REQUEST, HE WILL LIKELY BE D/C' D TOMORROW AM BED IS CURRENTLY AVAILABLE FOR HIM FOR ADMISSION AT [facility] ([place], [place]) AND PATIENT EXPRESSES DESIRE TO GO THERE FOR AFTERCARE.
[2018-07-09] MEDS ORDERED: CALCIUM 500MG/VIT-D 200 UNITS COMBO TABLET (FP) PO SCH (17:15)
[2018-07-09 17:34] VITALS: BP 124/68; TEMP 98.7
[2018-07-09 18:40] VITALS: PULSE 98
--- NOTE | 2018-07-09 19:13 | DS ---
[facility] Detox Discharge Summary Admission Date: 07/08/18 Discharge Date: 07/09/18 - History Present History: Alcohol Dependence Additional Comments: Patient left AMA. Reports he has follow up appointment 07/10/18 with his derrick hand Dr. Maria Esther Sanz at [facility]. Patent advised if worsening symptoms are present to seek medical attention and go to local ED. Patient verbalizes understanding. - Physical Exam Results Vital Signs: Vital Signs Temperature 98.7 F 07/09/18 17:33 Pulse Rate 98 H 07/09/18 18:30 Respiratory Rate 19 07/09/18 18:30 Blood Pressure 124/68 07/09/18 17:33 O2 Sat by Pulse Oximetry (%) - Medication Discharge Medications: Ambulatory Orders Folic Acid - 1 mg PO DAILY 30 Days #30 tablet 04/01/18 Thiamine HCl [Vitamin B1 -] 100 mg PO DAILY 30 Days #30 tablet 04/01/18 LORazepam [Ativan] 0.5 mg PO 0500,1100,1700,2300 tablet MDD 2 06/19/18 LORazepam [Ativan] 0.5 mg PO Q4H PRN tablet MDD 3 06/19/18 LORazepam [Ativan] 1 mg PO 0500,1100,1700,2300 tablet MDD 4 06/19/18 LORazepam [Ativan] 1 mg PO Q4H PRN tablet MDD 6 06/19/18 Lactulose (Oral Use) [Cephulac -] 20 gm PO Q8H PRN udc 06/19/18 Rifaximin [Xifaxan -] 550 mg PO BID tablet 06/19/18 Thiamine HCl [B-1] 100 mg PO 07/08/18 - Diagnosis (1) Elevated liver enzymes Current Visit: Yes Status: Acute (2) Alcohol dependence with uncomplicated withdrawal Current Visit: Yes Status: Acute (3) GERD (gastroesophageal reflux disease) Current Visit: Yes Status: Acute Qualifiers: Esophagitis presence: without esophagitis Qualified Code(s): K21.9 - Gastro -esophageal reflux disease without esophagitis (4) HTN (hypertension) Current Visit: Yes Status: Chronic Qualifiers: Hypertension type: essential hypertension Qualified Code(s): I10 - Essential (primary) hypertension (5) Jaundice Current Visit: Yes Status: Chronic (6) Liver cirrhosis, alcoholic Current Visit: Yes Status: Chronic Qualifiers: Ascites presence: unspecified Qualified Code(s): K70.30 - Alcoholic cirrhosis of liver without ascites - AMA Did Patient Leave Against Medical Advice: Yes
[2018-07-09] MEDS ORDERED: LORazepam 1 MG TABLET PO SCH (23:00)
[2018-07-10] MEDS ORDERED: LORazepam 0.5 MG TABLET PO SCH ×2 (05:00→23:00)
[2018-07-10] MEDS ORDERED: LORazepam 0.5 MG TABLET PO PRN (23:00)
== END 2018-07-09 18:41 | disposition left against medical advice (07) | DRG 770 ==
LOC: YASAS 16:39 → Y3N 19:34
PROVIDERS: ADMIT Surgery; ATTEND Surgery
PROC: HZ2ZZZZ Detoxification Services for Substance Abuse Treatment (ICD-10-PCS; principal; 2018-07-08)
DX: F10.230 Alcohol dependence with withdrawal, uncomplicated (principal); I10 Essential (primary) hypertension; K21.9 Gastro-esophageal reflux disease without esophagitis; R94.5 Abnormal results of liver function studies; K70.30 Alcoholic cirrhosis of liver without ascites; R17 Unspecified jaundice; D61.818 Other pancytopenia; E83.51 Hypocalcemia; Z87.891 Personal history of nicotine dependence
CPT/HCPCS: 36415; 80053; 85027; 86593

== ENCOUNTER 2018-07-29 15:16 | Inpatient (IN) | payer SELFPAY ==
[2018-07-29 15:36] VITALS: BMI 46.3
--- NOTE | 2018-07-29 17:30 | HP ---
CIWA Score Nausea/Vomitin-Mild Nausea/No Vomiting Muscle Tremors: 6 Anxiety: 3 Agitation: 0-Normal Activity Paroxysmal Sweats: 3 (Increased facial moisture) Orientation: 0-Oriented Tacttile Disturbances: 0-None Auditory Disturbances: 0-None Visual Disturbances: 0-None Headache: 2-Mild (Back of head) CIWA-Ar Total Score: 15 - Admission Criteria OASAS Guidelines: Admission for Medically Managed Detox: Requires at least one of the followin. CIWA greater than 12 2. Seizures within the past 24 hours 3. Delirium tremens within the past 24 hours 4. Hallucinations within the past 24 hours 5. Acute intervention needed for co occurring medical disorder 6. Acute intervention needed for co occurring psychiatric disorder 7. Severe withdrawal that cannot be handled at a lower level of care (continued vomiting, continued diarrhea, abnormal vital signs) requiring intravenous medication and/or fluids 8. Patient presents the following: CIWA greater than 12 Admission Criteria Met: Admission criteria met Admission ROS [facility] Chief Complaint: Alcohol withdrawal. Allergies/Adverse Reactions: Allergies Allergy/AdvReac Type Severity Reaction Status Date / Time No Known Allergies Allergy Verified 07/29/18 15:25 History of Present Illness: Here for alcohol detox. States signed out AMA ON 07/07/18 because had an appt w/ liver dr. Alcohol use began at age 14. States current usage has been consistent for years. Denies hx seizures, blackouts, DT's. Has had many attempts at detox. PMHx: Cirrhosis; Varices s/p banding, hyperbilirubinemia, 06/23/18 EKG reviewed. MHHx: Anxious. Denies depression. Denies thoughts of harming self or others. Search Terms: [place] Luna, 1990 Search Date: 07/29/2018 05:41:18 PM The Drug Utilization Report below displays all of the controlled substance prescriptions, if any, that your patient has filled in the last twelve months. The information displayed on this report is compiled from pharmacy submissions to the Department, and accurately reflects the information as submitted by the pharmacies. This report was requested by: Natty Suggs | Reference #: [id number] There are no results for the search terms that you entered. Exam Limitations: No Limitations - Ebola screening Have you traveled outside of the country in the last 21 days: No Have you had contact with anyone from an Ebola affected area: No Have you been sick,other than usual withdrawal symptoms: No (Denies measles exposure) Do you have a fever: No - Review of Systems Constitutional: Diaphoresis, Changes in sleep (Difficulty falling asleep) EENT: reports: Blurred Vision (Wears contact lenses) Respiratory: reports: No Symptoms reported Cardiac: reports: No Symptoms Reported GI: reports: See HPI, Nausea, Indigestion (heart burn - takes mylanta) : reports: No Symptoms Reported Musculoskeletal: reports: Back Pain (Intermittent achy LBP x years. No pain at this time. Pain usually a "6". Increases w/ standing up a lot. Improves w/ rest. ) Integumentary: reports: No Symptoms Reported Neuro: reports: Headache (Mild @ back of head), Tremors Endocrine: reports: No Symptoms Reported Hematology: reports: Other (Varicose veins) Psychiatric: reports: Judgement Intact, Orientated x3, Anxious Patient History - Patient Medical History Hx Anemia: No Hx Asthma: No Hx Chronic Obstructive Pulmonary Disease (COPD): No Hx Cancer: No Hx Cardiac Disorders: No Hx Congestive Heart Failure: No Hx Hypertension: No Hx Hypercholesterolemia: No Hx Pacemaker: No HX Cerebrovascular Accident: No Hx Seizures: No Hx Dementia: No Hx Diabetes: No Hx Gastrointestinal Disorders: No Hx Liver Disease: Yes (Cirrhosis, varices) Hx Genitourinary Disorders: No Hx Sexually Transmitted Disorders: No Hx Renal Disease (ESRD): No Hx Thyroid Disease: No Hx Human Immunodeficiency Virus (HIV): No Hx Hepatitis C: No Hx Depression: No Hx Suicide Attempt: No Hx Bipolar Disorder: No Hx Schizophrenia: No - Patient Surgical History Past Surgical History: No Hx Neurologic Surgery: No Hx Cataract Extraction: No Hx Cardiac Surgery: No Hx Lung Surgery: No Hx Breast Surgery: No Hx Breast Biopsy: No Hx Abdominal Surgery: No Hx Appendectomy: No Hx Cholecystectomy: No Hx Genitourinary Surgery: No Hx Section: No Hx Orthopedic Surgery: No Hx Hysterectomy: No Anesthesia Reaction: No - PPD History Previous Implant?: Yes Documented Results: Negative w/proof Implanted On Prior [facility] Admission?: Yes Date: 07/25/17 Results: NEGATIVE PPD to be Administered?: Yes - Smoking Cessation Smoking history: Former smoker Have you smoked in the past 12 months: No Aproximately how many cigarettes per day: 0 Cigars Per Day: 0 Hx Chewing Tobacco Use: No Initiated information on smoking cessation: No - Substance & Tx. History Hx Alcohol Use: Yes Hx Substance Use: Yes Substance Use Type: Alcohol Hx Substance Use Treatment: Yes (detox, rehab) - Substances abused Alcohol Substance route: Oral Frequency: Daily Amount used: 4 CAN S OF 24 ounces BEER Age of first use: 14 Date of last use: 07/29/18 Family Disease History - Family Disease History Family Disease History: Diabetes: Grandparent, Other: Father (: with sequela of etoh cirrhosis), Mother (Alive, healthy), Brother (1, healthy), Sister (2, healthy) Admission Physical Exam [facility] - Vital Signs Vital Signs: Vital Signs - 24 hr 07/29/18 15:31 Temperature 98.2 F Pulse Rate 114 H Respiratory 18 Rate Blood Pressure 152/85 - Physical General Appearance: Yes: Nourished, Mild Distress, Obese, Tremorous, Sweating ( Increased facial moisture), Anxious HEENTM: Yes: EOMI (Jerking movement of eyes on (L) lateral gaze), Hearing grossly Normal, Normocephalic, Normal Voice, PELON, Scleral Ictenus R (Slight), Scleral Ictenus L (slight) Respiratory: Yes: Lungs Clear, Normal Breath Sounds, No Respiratory Distress Neck: Yes: No masses,lesions,Nodules, Supple Breast: Yes: Breast Exam Deferred Cardiology: Yes: Regular Rhythm, S1, S2, Tachycardia Abdominal: Yes: Non Tender, Soft, Protuberent (Increased abdominal adiposity) Genitourinary: Yes: Within Normal Limits Back: Yes: Normal Inspection Musculoskeletal: Yes: full range of Motion, Gait Steady Extremities: Yes: Normal Capillary Refill, Normal Range of Motion, Tremors ( Tremors at rest which increase w/ arms elevated), Other (Engorged blood vessles (L) lower extremity, milder in (R). Non -tender. Pedal pulses (+). No edema. 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 Thickened, layered, darkened toe nails.) Lymphatic: Yes: Within Normal Limits - Diagnostic (1) Scleral icterus Current Visit: Yes Status: Chronic Comment: Slight jaundice both sclera. (2) Alcohol dependence with uncomplicated withdrawal Current Visit: Yes Status: Acute (3) GERD (gastroesophageal reflux disease) Current Visit: Yes Status: Acute Qualifiers: Esophagitis presence: without esophagitis Qualified Code(s): K21.9 - Gastro -esophageal reflux disease without esophagitis (4) Hyperbilirubinemia Current Visit: Yes Status: Chronic (5) Liver cirrhosis, alcoholic Current Visit: Yes Status: Chronic Qualifiers: Ascites presence: unspecified Qualified Code(s): K70.30 - Alcoholic cirrhosis of liver without ascites (6) Tinea pedis Current Visit: Yes Status: Chronic Qualifiers: Laterality: bilateral Qualified Code(s): B35.3 - Tinea pedis (7) Onychomycosis Current Visit: Yes Status: Chronic (8) Nystagmus Current Visit: Yes Status: Acute (9) Varicose veins of both lower extremities Current Visit: Yes Status: Chronic Qualifiers: Varicose vein complication: asymptomatic Qualified Code(s): I83.93 - Asymptomatic varicose veins of bilateral lower extremities Comment: (R) engorgement > (L) (10) Increased ammonia level Current Visit: Yes Status: Suspected Comment: Hx elevated ammonia. On lactulose. Cleared for Admission S - Detox or Rehab [facility] Level of Care: Medically Managed Detox Regimen/Protocol: Librium Claeared for Rehab Admission: No Breathalyzer - Breathalyzer Breathalyzer: 0.187 Urine Drug Screen - Test Device Lot number: [id number] Expiration date: 03/06/20 - Control Is test valid?: Yes - Results Drug screen NEGATIVE: Yes Urine drug screen results: BZO-Benzodiazepines Inpatient Rehab Admission - Rehab Decision to Admit Inpatient rehab admission?: No
[2018-07-29] MEDS ORDERED: hydrOXYzine PAMOATE 25 MG CAPSULE (FP) PO PRN (17:56)
[2018-07-29] MEDS ORDERED: IBUPROFEN 400 MG TABLET (FP) PO PRN (17:56)
[2018-07-29] MEDS ORDERED: MELATONIN 5 MG TABLETS PO PRN (17:56)
[2018-07-29] MEDS ORDERED: MENTHOL/PHENOL 1 EACH UD MM PRN (17:56)
[2018-07-29] MEDS ORDERED: PROCHLORPERAZINE MALEATE 5 MG TABLET PO PRN (17:56)
[2018-07-29] MEDS ORDERED: METHOCARBAMOL 500 MG TABLET PO PRN (17:56)
[2018-07-29] MEDS ORDERED: BISMUTH SUBSALICYLATE 524 MG/30 ML UD PO PRN (17:56)
[2018-07-29] MEDS ORDERED: chlordiazePOXIDE HCL 25 MG CAPSULE PO PRN (17:56)
[2018-07-29] MEDS ORDERED: guaiFENesin 200 MG/10 ML 10 ML UNIT-DOSE CUPS PO PRN (17:56)
[2018-07-29] MEDS ORDERED: MAGNESIUM CITRATE 300 ML BOTTLE PO PRN (17:56)
[2018-07-29] MEDS ORDERED: MAGNESIUM HYDROX 2400MG/30ML ORAL SUSPENSION 30 ML CUP PO PRN (17:56)
[2018-07-29] MEDS ORDERED: MAG HYDROX/AL HYDROX/SIMETH 30 ML UNIT-DOSE CUP PO PRN (17:56)
[2018-07-29] MEDS ORDERED: chlordiazePOXIDE HCL 25 MG CAPSULE PO ONE (17:56)
[2018-07-29] MEDS ORDERED: ACETAMINOPHEN 325 MG TABLET (FP) PO PRN ×2 (17:56)
[2018-07-29] MEDS ORDERED: LACTULOSE 20 GM/30 ML UDC (FOR ORAL USE ONLY) PO PRN (17:59)
[2018-07-29] MEDS: TOLNAFTATE 1% CREAM 15 GM TUBE TP SCH (22:11)
[2018-07-29] MEDS: THIAMINE HCL 100 MG TABLET (FP) PO SCH (22:11)
[2018-07-29] MEDS: chlordiazePOXIDE HCL 25 MG CAPSULE PO SCH (22:12)
[2018-07-29 23:11] LABS: EPI CELLS 0.3 /HPF (0-5/HPF); PH,URINE 5.5 (5.0-8.0); URINE APPEARANCE CLEAR; URINE BACTERIA 4.1 /hpf (NEGATIVE); URINE BILIRUBIN 1+ (NEGATIVE); URINE CASTS 1 /lpf (0-8); URINE COLOR DK YELLOW; URINE GLUCOSE (UA) NEGATIVE (NEGATIVE); URINE KETONE NEGATIVE (NEGATIVE); URINE LEUK ESTERASE NEGATIVE (NEGATIVE); URINE NITRITE NEGATIVE (NEGATIVE); URINE PROTEIN 2+ (NEGATIVE); URINE RBC 1 /hpf (0-4); URINE WBC 0 /hpf (0-5)
[2018-07-30] MEDS: chlordiazePOXIDE HCL 25 MG CAPSULE PO SCH ×4 (05:33→22:05)
[2018-07-30] MEDS ORDERED: ONDANSETRON *ODT* 4 MG TABLET SL PRN (09:42)
[2018-07-30] MEDS ORDERED: ONDANSETRON *ODT* 4 MG TABLET SL ONE (09:42)
[2018-07-30 10:12] LABS: ALBUMIN 2.6 g/dl (3.4-5.0); ALK PHOS 179 U/L (45-117); ANION GAP 7 MMOL/L (8-16); BILIRUBIN,TOTAL 4.6 mg/dL (0.2-1); CALCIUM 7.8 mg/dL (8.5-10.1); CHLORIDE 106 mmol/L (98-107); CO2 27 mmol/L (21-32); CREATININE 0.3 mg/dL (0.55-1.3); GLUCOSE,RANDOM 107 mg/dL (74-106); POTASSIUM 3.6 mmol/L (3.5-5.1); SGOT/AST 88 U/L (15-37); SGPT/ALT 37 U/L (13-61); SODIUM 140 mmol/L (136-145); TOT PROT 6.6 g/dl (6.4-8.2)
[2018-07-30] MEDS: TOLNAFTATE 1% CREAM 15 GM TUBE TP SCH ×2 (10:14→22:40)
[2018-07-30] MEDS: PRENATAL VITAMINS W/ FOLIC ACID TABLET (FP) PO SCH (10:14)
--- NOTE | 2018-07-30 10:25 | PN ---
[facility] CIWA - CIWA Score Nausea/Vomitin-Mild Nausea/No Vomiting Muscle Tremors: 4-Moderate,w/Arms Extend Anxiety: 3 Agitation: 2 Paroxysmal Sweats: 1-Minimal Palms Moist Orientation: 2-Disoriented Date<2 days Tacttile Disturbances: 1-Very Mild Itch/Numbness Auditory Disturbances: 0-None Visual Disturbances: 0-None Headache: 0-None Present CIWA-Ar Total Score: 14 BHS Progress Note (SOAP) Subjective: nausea treated with one dose zofran 8 mg order zofrain 4 mg po prn Objective: 07/30/18 10:22 Vital Signs Temperature 98 F 07/30/18 09:11 Pulse Rate 103 H 07/30/18 09:11 Respiratory Rate 20 07/30/18 09:11 Blood Pressure 152/87 07/30/18 09:11 O2 Sat by Pulse Oximetry (%) Laboratory Last Values Sodium 140 mmol/L (136-145) 07/30/18 07:00 Potassium 3.6 mmol/L (3.5-5.1) 07/30/18 07:00 Chloride 106 mmol/L (98-107) 07/30/18 07:00 Carbon Dioxide 27 mmol/L (21-32) 07/30/18 07:00 Anion Gap 7 MMOL/L (8-16) L 07/30/18 07:00 Creatinine 0.3 mg/dL (0.55-1.3) L 07/30/18 07:00 Creat Clearance w eGFR 352.03 (>60) 07/30/18 07:00 Random Glucose 107 mg/dL (74-106) H 07/30/18 07:00 Calcium 7.8 mg/dL (8.5-10.1) L 07/30/18 07:00 Total Bilirubin 4.6 mg/dL (0.2-1) H 07/30/18 07:00 AST 88 U/L (15-37) H 07/30/18 07:00 ALT 37 U/L (13-61) 07/30/18 07:00 Alkaline Phosphatase 179 U/L (45-117) H 07/30/18 07:00 Ammonia 92.20 umol/L (11-32) H 07/30/18 07:00 Total Protein 6.6 g/dl (6.4-8.2) 07/30/18 07:00 Albumin 2.6 g/dl (3.4-5.0) L 07/30/18 07:00 Urine Color Dk yellow 07/29/18 22:50 Urine Appearance Clear 07/29/18 22:50 Urine pH 5.5 (5.0-8.0) 07/29/18 22:50 Ur Specific [place] 1.010 (1.010-1.035) 07/29/18 22:50 Urine Protein 2+ (NEGATIVE) H 07/29/18 22:50 Urine Glucose (UA) Negative (NEGATIVE) 07/29/18 22:50 Urine Ketones Negative (NEGATIVE) 07/29/18 22:50 Urine Blood 1+ (NEGATIVE) H 07/29/18 22:50 Urine Nitrite Negative (NEGATIVE) 07/29/18 22:50 Urine Bilirubin 1+ (NEGATIVE) H 07/29/18 22:50 Urine Urobilinogen 1.0 mg/dL (0.2-1.0) 07/29/18 22:50 Ur Leukocyte Esterase Negative (NEGATIVE) 07/29/18 22:50 Urine WBC (Auto) 0 /hpf (0-5) 07/29/18 22:50 Urine RBC (Auto) 1 /hpf (0-4) 07/29/18 22:50 Urine Casts (Auto) 1 /lpf (0-8) 07/29/18 22:50 U Epithel Cells (Auto) 0.3 /HPF (0-5/HPF) 07/29/18 22:50 Urine Bacteria (Auto) 4.1 /hpf (NEGATIVE) 07/29/18 22:50 lab noted 07/30/18 10:23ammonia elevation treated with lactulose 20 mg po q8h patient has long history of ammonia elevation treating with lactulose effectively discuss alcohol related ammonia elevation Assessment: 07/30/18 10:24 alcohol withdrawal sx Plan: continue detox
[2018-07-30 10:43] LABS: HEMATOCRIT 32.2 % (35.4-49); HEMOGLOBIN 11.4 GM/dL (11.7-16.9); MCH 34.2 pg (25.7-33.7); MCHC 35.3 g/dl (32.0-35.9); MEAN CELL VOLUME 97.1 fl (80-96); MEAN PLT VOLUME 9.4 fl (7.5-11.1); RBC 3.32 M/mm3 (4.00-5.60); RDW 14.6 % (11.9-15.9); WHITE BLOOD COUNT 3.6 K/mm3 (4.0-10.0)
[2018-07-30 10:46] LABS: BLOOD UREA NITROGEN 2 mg/dL (7-18)
[2018-07-30 10:50] LABS: PLATELET COUNT 33 K/MM3 (134-434)
[2018-07-30] MEDS ORDERED: MAG HYDROX/AL HYDROX/SIMETH 30 ML UNIT-DOSE CUP PO PRN (10:57)
[2018-07-30] MEDS: LACTULOSE 20 GM/30 ML UDC (FOR ORAL USE ONLY) PO SCH ×2 (11:02→18:24)
[2018-07-30] MEDS ORDERED: cloNIDine HCL 0.1 MG TABLET PO PRN (12:33)
[2018-07-30] MEDS: amLODIPine BESYLATE 5 MG TABLET (FP) PO SCH ×2 (12:53→22:05)
[2018-07-30] MEDS: THIAMINE HCL 100 MG TABLET (FP) PO SCH (22:04)
[2018-07-31] MEDS: LACTULOSE 20 GM/30 ML UDC (FOR ORAL USE ONLY) PO SCH ×3 (05:18→18:19)
[2018-07-31] MEDS: chlordiazePOXIDE HCL 25 MG CAPSULE PO SCH ×3 (05:18→16:31)
[2018-07-31] MEDS: PRENATAL VITAMINS W/ FOLIC ACID TABLET (FP) PO SCH (10:40)
[2018-07-31] MEDS: amLODIPine BESYLATE 5 MG TABLET (FP) PO SCH ×2 (10:40→22:13)
[2018-07-31] MEDS: TOLNAFTATE 1% CREAM 15 GM TUBE TP SCH ×2 (10:41→22:13)
[2018-07-31] MEDS ORDERED: LORazepam 1 MG TABLET PO PRN (17:53)
--- NOTE | 2018-07-31 18:01 | PN ---
S CIWA - CIWA Score Nausea/Vomitin Muscle Tremors: 2 Anxiety: 3 Agitation: 1-Slight > Activity Paroxysmal Sweats: 3 Orientation: 0-Oriented Tacttile Disturbances: 0-None Auditory Disturbances: 2-Mild Harshness/Frighten Visual Disturbances: 0-None Headache: 0-None Present CIWA-Ar Total Score: 13 BHS Progress Note (SOAP) Subjective: Anxious, Sweating, Nausea (Mild, Improving). Objective: PATIENT A & O X 3, OBSERVED AMBULATING ON UNIT UNASSISTED. IN NO ACUTE DISTRESS. 07/31/18 17:57 Vital Signs Temperature 98.9 F 07/31/18 17:47 Pulse Rate 99 H 07/31/18 17:47 Respiratory Rate 16 07/31/18 17:47 Blood Pressure 141/73 07/31/18 17:47 O2 Sat by Pulse Oximetry (%) Laboratory Tests 07/29/18 07/30/18 07/30/18 22:50 07:00 07:00 WBC 3.6 L RBC 3.32 L Hgb 11.4 L Hct 32.2 L MCV 97.1 H MCH 34.2 H MCHC 35.3 RDW 14.6 Plt Count 33 L* MPV 9.4 Sodium 140 Potassium 3.6 Chloride 106 Carbon Dioxide 27 Anion Gap 7 L BUN 2 L* Creatinine 0.3 L Creat Clearance w eGFR 352.03 Random Glucose 107 H Calcium 7.8 L Total Bilirubin 4.6 H AST 88 H ALT 37 Alkaline Phosphatase 179 H Ammonia Total Protein 6.6 Albumin 2.6 L Urine Color Dk yellow Urine Appearance Clear Urine pH 5.5 Ur Specific [place] 1.010 Urine Protein 2+ H Urine Glucose (UA) Negative Urine Ketones Negative Urine Blood 1+ H Urine Nitrite Negative Urine Bilirubin 1+ H Urine Urobilinogen 1.0 Ur Leukocyte Esterase Negative Urine WBC (Auto) 0 Urine RBC (Auto) 1 Urine Casts (Auto) 1 U Epithel Cells (Auto) 0.3 Urine Bacteria (Auto) 4.1 RPR Titer 07/30/18 07/30/18 07:00 07:00 WBC RBC Hgb Hct MCV MCH MCHC RDW Plt Count MPV Sodium Potassium Chloride Carbon Dioxide Anion Gap BUN Creatinine Creat Clearance w eGFR Random Glucose Calcium Total Bilirubin AST ALT Alkaline Phosphatase Ammonia 92.20 H Total Protein Albumin Urine Color Urine Appearance Urine pH Ur Specific [place] Urine Protein Urine Glucose (UA) Urine Ketones Urine Blood Urine Nitrite Urine Bilirubin Urine Urobilinogen Ur Leukocyte Esterase Urine WBC (Auto) Urine RBC (Auto) Urine Casts (Auto) U Epithel Cells (Auto) Urine Bacteria (Auto) RPR Titer Nonreactive LABS NOTED. PATIENT HAS BEEN PANCYTOPENIC ON PREVIOUS ADMISSIONS. PATIENT HAS REPORTED HISTORY OF CIRRHOSIS OF LIVER. 07/31/18 17:58 Assessment: 07/31/18 17:57 WITHDRAWAL SYMPTOMS. ELEVATED LIVER ENZYMES. HYPERBILIRUBINEMIA. HYPERAMMONEMIA. HYPOCALCEMIA. PANCYTOPENIA. 07/31/18 17:58 Plan: CONTINUED ETOX. INCREASE DAILY PO FLUID INTAKE. DUE TO KNOWN HISTORY OF LIVER CIRRHOSIS AND DUE TO LIVER ENZYME AND TOTAL BILIRUBIN ABNORMALITES NOTED ON DETOX ADMISSION, CURRENT DETOX MEDICATION REGIMEN TO BE CHANGED FROM LIBRIUM TO ATIVAN. CONTINU LACTULOSE FOR HYPERAMMONEMIA. REPEAT AMMONIA LEVEL ORDERED FOR TOMORROW AM. OSCAL, 500 MG PO BID ORDERED FOR LOW CA LEVEL NOTED ON DETOX ADMISSION. PATIENT REPORTED TO [employer] THIS AM THAT HE HAS UPCOMING APPOINTMENT WITH HEPATIC SPECIALIST FOR LIVER CIRRHOSIS UPCOMING AT [facility] AFTER DISCHARGE FROM DETOX.
[2018-07-31] MEDS: LORazepam 1 MG TABLET PO SCH (22:13)
[2018-07-31] MEDS: CALCIUM 500MG/VIT-D 200 UNITS COMBO TABLET (FP) PO SCH (22:13)
[2018-07-31] MEDS: THIAMINE HCL 100 MG TABLET (FP) PO SCH (22:13)
[2018-07-31] MEDS ORDERED: chlordiazePOXIDE HCL 10 MG CAPSULE PO PRN (23:00)
[2018-07-31] MEDS ORDERED: chlordiazePOXIDE HCL 10 MG CAPSULE PO SCH (23:00)
[2018-08-01] MEDS: LORazepam 1 MG TABLET PO SCH (05:49)
[2018-08-01] MEDS: LACTULOSE 20 GM/30 ML UDC (FOR ORAL USE ONLY) PO SCH ×4 (05:50→22:11)
[2018-08-01] MEDS: LORazepam 0.5 MG TABLET PO SCH ×3 (10:03→22:11)
[2018-08-01] MEDS: TOLNAFTATE 1% CREAM 15 GM TUBE TP SCH ×2 (10:03→22:11)
[2018-08-01] MEDS: CALCIUM 500MG/VIT-D 200 UNITS COMBO TABLET (FP) PO SCH ×2 (10:04→22:12)
[2018-08-01] MEDS: amLODIPine BESYLATE 5 MG TABLET (FP) PO SCH ×2 (10:04→22:11)
[2018-08-01] MEDS: PRENATAL VITAMINS W/ FOLIC ACID TABLET (FP) PO SCH (10:04)
--- NOTE | 2018-08-01 17:24 | PN ---
S CIWA - CIWA Score Nausea/Vomitin-No Nausea/No Vomiting Muscle Tremors: None Anxiety: 1-Mildly Anxious Agitation: 1-Slight > Activity Paroxysmal Sweats: 2 Orientation: 0-Oriented Tacttile Disturbances: 1-Very Mild Itch/Numbness Auditory Disturbances: 0-None Visual Disturbances: 0-None Headache: 0-None Present CIWA-Ar Total Score: 5 BHS Progress Note (SOAP) Subjective: Anxious (Mild), Sweating (Mild). Patient reports that current Withdrawal / Detox symptoms are minimal in degree and that he feels well overall at this time. Objective: PATIENT A & O X 3, OBSERVED AMBULATING ON UNIT UNASSISTED. IN NO ACUTE DISTRESS. 08/01/18 17:23 Vital Signs Temperature 98.7 F 08/01/18 14:14 Pulse Rate 114 H 08/01/18 14:14 Respiratory Rate 20 08/01/18 14:14 Blood Pressure 132/64 08/01/18 14:14 O2 Sat by Pulse Oximetry (%) Laboratory Tests 07/29/18 07/30/18 07/30/18 22:50 07:00 07:00 WBC 3.6 L RBC 3.32 L Hgb 11.4 L Hct 32.2 L MCV 97.1 H MCH 34.2 H MCHC 35.3 RDW 14.6 Plt Count 33 L* MPV 9.4 Sodium 140 Potassium 3.6 Chloride 106 Carbon Dioxide 27 Anion Gap 7 L BUN 2 L* Creatinine 0.3 L Creat Clearance w eGFR 352.03 Random Glucose 107 H Calcium 7.8 L Total Bilirubin 4.6 H AST 88 H ALT 37 Alkaline Phosphatase 179 H Ammonia Total Protein 6.6 Albumin 2.6 L Urine Color Dk yellow Urine Appearance Clear Urine pH 5.5 Ur Specific [place] 1.010 Urine Protein 2+ H Urine Glucose (UA) Negative Urine Ketones Negative Urine Blood 1+ H Urine Nitrite Negative Urine Bilirubin 1+ H Urine Urobilinogen 1.0 Ur Leukocyte Esterase Negative Urine WBC (Auto) 0 Urine RBC (Auto) 1 Urine Casts (Auto) 1 U Epithel Cells (Auto) 0.3 Urine Bacteria (Auto) 4.1 RPR Titer 07/30/18 07/30/18 08/01/18 07:00 07:00 06:15 WBC RBC Hgb Hct MCV MCH MCHC RDW Plt Count MPV Sodium Potassium Chloride Carbon Dioxide Anion Gap BUN Creatinine Creat Clearance w eGFR Random Glucose Calcium Total Bilirubin AST ALT Alkaline Phosphatase Ammonia 92.20 H 82.20 H Total Protein Albumin Urine Color Urine Appearance Urine pH Ur Specific [place] Urine Protein Urine Glucose (UA) Urine Ketones Urine Blood Urine Nitrite Urine Bilirubin Urine Urobilinogen Ur Leukocyte Esterase Urine WBC (Auto) Urine RBC (Auto) Urine Casts (Auto) U Epithel Cells (Auto) Urine Bacteria (Auto) RPR Titer Nonreactive LABS NOTED. RESULTS OF REPEAT AMMONIA LEVEL NOTED. MILD REDUCTION IN AMMONIA LEVEL NOTED. Assessment: 08/01/18 17:23 WITHDRAWAL SYMPTOMS. ELEVATED LIVER ENZYMES. HYPERBILIRUBINEMIA. HYPERAMMONEMIA. HYPOCALCEMIA. PANCYTOPENIA. 08/01/18 17:24 Plan: CONTINUE DETOX. PATIENT SCHEDULED FOR D/C TOMORROW AM. PATIENT REPORTS THAT HE HAS APPOINTMENT TO SEE HEPATIC SPECIALIST FOR HISTORY OF LIVER CIRRHOSIS UPCOMING ON 08/02/2018. DISCHARGE PRESCRIPTION FOR LACTULOSE FOR AFTERCARE UNTIL PATIENT CONSULTS HEPATIC SPECIALIST SENT TO PATIENT'S PHARMACY ([facility], [address], [place]) FOR PATIENT TO DENTAL FINANCIAL COORDINATOR AFTER DISCHARGE FROM DETOX UNIT TOMORROW. COPIES OF RESULTS OF ALL LABS DRAWN WHILE ADMITTED FOR DETOX WILL BE GIVEN TO PATIENT AT TIME OF DISCHARGE FROM DETOX UNIT TOMORROW.
[2018-08-01] MEDS ORDERED: LORazepam 0.5 MG TABLET PO PRN (17:55)
[2018-08-01] MEDS: THIAMINE HCL 100 MG TABLET (FP) PO SCH (22:11)
[2018-08-01] MEDS ORDERED: chlordiazePOXIDE HCL 10 MG CAPSULE PO SCH (23:00)
[2018-08-02] MEDS: LORazepam 0.5 MG TABLET PO SCH ×2 (05:21→10:46)
[2018-08-02] MEDS: LACTULOSE 20 GM/30 ML UDC (FOR ORAL USE ONLY) PO SCH (05:21)
[2018-08-02 09:31] VITALS: BP 152/80; PULSE 111; TEMP 97.9
[2018-08-02] MEDS: CALCIUM 500MG/VIT-D 200 UNITS COMBO TABLET (FP) PO SCH (10:45)
[2018-08-02] MEDS: amLODIPine BESYLATE 5 MG TABLET (FP) PO SCH (10:45)
[2018-08-02] MEDS: TOLNAFTATE 1% CREAM 15 GM TUBE TP SCH (10:46)
[2018-08-02] MEDS: PRENATAL VITAMINS W/ FOLIC ACID TABLET (FP) PO SCH (10:46)
--- NOTE | 2018-08-02 16:15 | DS ---
[facility] Detox Discharge Summary Admission Date: 07/29/18 Discharge Date: 08/02/18 - History Present History: Alcohol Dependence Additional Comments: 28 years old male admitted on 07/29/18 for alcohol withdrawal stabilization completed detox regimen aftercare [facility] Pertinent Past History: bring in medication list and lab report to aftercare appointment - Physical Exam Results Vital Signs: Vital Signs Temperature 97.9 F 08/02/18 08:30 Pulse Rate 111 H 08/02/18 08:30 Respiratory Rate 18 08/02/18 08:30 Blood Pressure 152/80 08/02/18 08:30 O2 Sat by Pulse Oximetry (%) Laboratory Last Values WBC 3.6 K/mm3 (4.0-10.0) L 07/30/18 07:00 RBC 3.32 M/mm3 (4.00-5.60) L 07/30/18 07:00 Hgb 11.4 GM/dL (11.7-16.9) L 07/30/18 07:00 Hct 32.2 % (35.4-49) L 07/30/18 07:00 MCV 97.1 fl (80-96) H 07/30/18 07:00 MCH 34.2 pg (25.7-33.7) H 07/30/18 07:00 MCHC 35.3 g/dl (32.0-35.9) 07/30/18 07:00 RDW 14.6 % (11.9-15.9) 07/30/18 07:00 Plt Count 33 K/MM3 (134-434) L* 07/30/18 07:00 MPV 9.4 fl (7.5-11.1) 07/30/18 07:00 Sodium 140 mmol/L (136-145) 07/30/18 07:00 Potassium 3.6 mmol/L (3.5-5.1) 07/30/18 07:00 Chloride 106 mmol/L (98-107) 07/30/18 07:00 Carbon Dioxide 27 mmol/L (21-32) 07/30/18 07:00 Anion Gap 7 MMOL/L (8-16) L 07/30/18 07:00 BUN 2 mg/dL (7-18) L* 07/30/18 07:00 Creatinine 0.3 mg/dL (0.55-1.3) L 07/30/18 07:00 Creat Clearance w eGFR 352.03 (>60) 07/30/18 07:00 Random Glucose 107 mg/dL (74-106) H 07/30/18 07:00 Calcium 7.8 mg/dL (8.5-10.1) L 07/30/18 07:00 Total Bilirubin 4.6 mg/dL (0.2-1) H 07/30/18 07:00 AST 88 U/L (15-37) H 07/30/18 07:00 ALT 37 U/L (13-61) 07/30/18 07:00 Alkaline Phosphatase 179 U/L (45-117) H 07/30/18 07:00 Ammonia 82.20 umol/L (11-32) H 08/01/18 06:15 Total Protein 6.6 g/dl (6.4-8.2) 07/30/18 07:00 Albumin 2.6 g/dl (3.4-5.0) L 07/30/18 07:00 Urine Color Dk yellow 07/29/18 22:50 Urine Appearance Clear 07/29/18 22:50 Urine pH 5.5 (5.0-8.0) 07/29/18 22:50 Ur Specific [place] 1.010 (1.010-1.035) 07/29/18 22:50 Urine Protein 2+ (NEGATIVE) H 07/29/18 22:50 Urine Glucose (UA) Negative (NEGATIVE) 07/29/18 22:50 Urine Ketones Negative (NEGATIVE) 07/29/18 22:50 Urine Blood 1+ (NEGATIVE) H 07/29/18 22:50 Urine Nitrite Negative (NEGATIVE) 07/29/18 22:50 Urine Bilirubin 1+ (NEGATIVE) H 07/29/18 22:50 Urine Urobilinogen 1.0 mg/dL (0.2-1.0) 07/29/18 22:50 Ur Leukocyte Esterase Negative (NEGATIVE) 07/29/18 22:50 Urine WBC (Auto) 0 /hpf (0-5) 07/29/18 22:50 Urine RBC (Auto) 1 /hpf (0-4) 07/29/18 22:50 Urine Casts (Auto) 1 /lpf (0-8) 07/29/18 22:50 U Epithel Cells (Auto) 0.3 /HPF (0-5/HPF) 07/29/18 22:50 Urine Bacteria (Auto) 4.1 /hpf (NEGATIVE) 07/29/18 22:50 RPR Titer Nonreactive (NONREACTIVE) 07/30/18 07:00 lab noted no motrin Pertinent Admission Physical Exam Findings: alcohol withdrawal sx Laboratory Last Values WBC 3.6 K/mm3 (4.0-10.0) L 07/30/18 07:00 RBC 3.32 M/mm3 (4.00-5.60) L 07/30/18 07:00 Hgb 11.4 GM/dL (11.7-16.9) L 07/30/18 07:00 Hct 32.2 % (35.4-49) L 07/30/18 07:00 MCV 97.1 fl (80-96) H 07/30/18 07:00 MCH 34.2 pg (25.7-33.7) H 07/30/18 07:00 MCHC 35.3 g/dl (32.0-35.9) 07/30/18 07:00 RDW 14.6 % (11.9-15.9) 07/30/18 07:00 Plt Count 33 K/MM3 (134-434) L* 07/30/18 07:00 MPV 9.4 fl (7.5-11.1) 07/30/18 07:00 Sodium 140 mmol/L (136-145) 07/30/18 07:00 Potassium 3.6 mmol/L (3.5-5.1) 07/30/18 07:00 Chloride 106 mmol/L (98-107) 07/30/18 07:00 Carbon Dioxide 27 mmol/L (21-32) 07/30/18 07:00 Anion Gap 7 MMOL/L (8-16) L 07/30/18 07:00 BUN 2 mg/dL (7-18) L* 07/30/18 07:00 Creatinine 0.3 mg/dL (0.55-1.3) L 07/30/18 07:00 Creat Clearance w eGFR 352.03 (>60) 07/30/18 07:00 Random Glucose 107 mg/dL (74-106) H 07/30/18 07:00 Calcium 7.8 mg/dL (8.5-10.1) L 07/30/18 07:00 Total Bilirubin 4.6 mg/dL (0.2-1) H 07/30/18 07:00 AST 88 U/L (15-37) H 07/30/18 07:00 ALT 37 U/L (13-61) 07/30/18 07:00 Alkaline Phosphatase 179 U/L (45-117) H 07/30/18 07:00 Ammonia 82.20 umol/L (11-32) H 08/01/18 06:15 Total Protein 6.6 g/dl (6.4-8.2) 07/30/18 07:00 Albumin 2.6 g/dl (3.4-5.0) L 07/30/18 07:00 Urine Color Dk yellow 07/29/18 22:50 Urine Appearance Clear 07/29/18 22:50 Urine pH 5.5 (5.0-8.0) 07/29/18 22:50 Ur Specific [place] 1.010 (1.010-1.035) 07/29/18 22:50 Urine Protein 2+ (NEGATIVE) H 07/29/18 22:50 Urine Glucose (UA) Negative (NEGATIVE) 07/29/18 22:50 Urine Ketones Negative (NEGATIVE) 07/29/18 22:50 Urine Blood 1+ (NEGATIVE) H 07/29/18 22:50 Urine Nitrite Negative (NEGATIVE) 07/29/18 22:50 Urine Bilirubin 1+ (NEGATIVE) H 07/29/18 22:50 Urine Urobilinogen 1.0 mg/dL (0.2-1.0) 07/29/18 22:50 Ur Leukocyte Esterase Negative (NEGATIVE) 07/29/18 22:50 Urine WBC (Auto) 0 /hpf (0-5) 07/29/18 22:50 Urine RBC (Auto) 1 /hpf (0-4) 07/29/18 22:50 Urine Casts (Auto) 1 /lpf (0-8) 07/29/18 22:50 U Epithel Cells (Auto) 0.3 /HPF (0-5/HPF) 07/29/18 22:50 Urine Bacteria (Auto) 4.1 /hpf (NEGATIVE) 07/29/18 22:50 RPR Titer Nonreactive (NONREACTIVE) 07/30/18 07:00 lab noted - Treatment Hospital Course: Detox Protocol Followed, Detoxed Safely, Responded well, Discharged Condition Good, Rehab Referral Accepted Patient has Accepted a Rehab Referral to: [facility] - Medication Discharge Medications: Ambulatory Orders Folic Acid - 1 mg PO DAILY 30 Days #30 tablet 04/01/18 Thiamine HCl [Vitamin B1 -] 100 mg PO DAILY 30 Days #30 tablet 04/01/18 Thiamine HCl [B-1] 100 mg PO DAILY 07/08/18 Lactulose (Oral Use) [Cephulac -] 20 gm PO TID 5 Days #15 bottle 08/01/18 Lactulose (Oral Use) [Cephulac -] 20 gm PO Q8H PRN #1 udc 08/02/18 - Diagnosis (1) Alcohol dependence with uncomplicated withdrawal Status: Acute (2) GERD (gastroesophageal reflux disease) Status: Chronic Qualifiers: Esophagitis presence: without esophagitis Qualified Code(s): K21.9 - Gastro -esophageal reflux disease without esophagitis (3) Hepatic encephalopathy Status: Chronic (4) HTN (hypertension) Status: Chronic Qualifiers: Hypertension type: essential hypertension Qualified Code(s): I10 - Essential (primary) hypertension - AMA Did Patient Leave Against Medical Advice: No
== END 2018-08-02 09:10 | disposition home or self-care (01) | DRG 775 ==
LOC: YASAS 15:16 → Y3N 18:27
PROVIDERS: ADMIT Surgery; ATTEND Surgery
PROC: HZ2ZZZZ Detoxification Services for Substance Abuse Treatment (ICD-10-PCS; principal; 2018-07-29)
DX: F10.230 Alcohol dependence with withdrawal, uncomplicated (principal); I10 Essential (primary) hypertension; I83.93 Asymptomatic varicose veins of bilateral lower extremities; K21.9 Gastro-esophageal reflux disease without esophagitis; E83.51 Hypocalcemia; E72.20 Disorder of urea cycle metabolism, unspecified; E80.6 Other disorders of bilirubin metabolism; D61.818 Other pancytopenia; K72.90 Hepatic failure, unspecified without coma; K70.30 Alcoholic cirrhosis of liver without ascites; H55.00 Unspecified nystagmus; B35.1 Tinea unguium
CPT/HCPCS: 36415; 80053; 81003; 82140; 85027; 86593; Q0162

== ENCOUNTER 2018-09-05 16:30 | Inpatient (IN) | payer OTHER ==
[2018-09-05 18:26] VITALS: BMI 43.9
--- NOTE | 2018-09-05 19:24 | HP ---
CIWA Score Nausea/Vomitin Muscle Tremors: 2 Anxiety: 2 Agitation: 1-Slight > Activity Paroxysmal Sweats: 2 Orientation: 0-Oriented Tacttile Disturbances: 1-Very Mild Itch/Numbness Auditory Disturbances: 0-None Visual Disturbances: 1-Very Mild Sensitivity Headache: 2-Mild CIWA-Ar Total Score: 13 - Admission Criteria OASAS Guidelines: Admission for Medically Managed Detox: Requires at least one of the followin. CIWA greater than 12 2. Seizures within the past 24 hours 3. Delirium tremens within the past 24 hours 4. Hallucinations within the past 24 hours 5. Acute intervention needed for co occurring medical disorder 6. Acute intervention needed for co occurring psychiatric disorder 7. Severe withdrawal that cannot be handled at a lower level of care (continued vomiting, continued diarrhea, abnormal vital signs) requiring intravenous medication and/or fluids 8. Patient presents the following: CIWA greater than 12 Admission Criteria Met: Admission criteria met Admission ROS S - HPI Chief Complaint: I am here for alcohol detox Allergies/Adverse Reactions: Allergies Allergy/AdvReac Type Severity Reaction Status Date / Time No Known Allergies Allergy Verified 09/05/18 18:50 History of Present Illness: 28 year old male who was in detox in July 2018 at [facility] presents for detox treatment. He is a frequent client and has signed out AMA in the past, most recently in early July. He denies blackouts or alcohol related seizures Exam Limitations: No Limitations - Ebola screening Have you traveled outside of the country in the last 21 days: No (N) Have you had contact with anyone from an Ebola affected area: No Have you been sick,other than usual withdrawal symptoms: No Do you have a fever: No - Review of Systems Constitutional: Chills, Malaise EENT: reports: No Symptoms Reported Respiratory: reports: No Symptoms reported Cardiac: reports: No Symptoms Reported GI: reports: Nausea : reports: No Symptoms Reported Musculoskeletal: reports: Muscle Pain, Muscle Weakness, Neck Pain Integumentary: reports: No Symptoms Reported Neuro: reports: Headache Endocrine: reports: No Symptoms Reported Hematology: reports: No Symptoms Reported Psychiatric: reports: Anxious Other Systems: Reviewed and Negative Patient History - Patient Medical History Hx Anemia: No Hx Asthma: No Hx Chronic Obstructive Pulmonary Disease (COPD): No Hx Cancer: No Hx Cardiac Disorders: No Hx Congestive Heart Failure: No Hx Hypertension: No Hx Hypercholesterolemia: No Hx Pacemaker: No HX Cerebrovascular Accident: No Hx Seizures: No Hx Dementia: No Hx Diabetes: No Hx Gastrointestinal Disorders: No Hx Liver Disease: Yes (Cirrhosis, varices) Hx Genitourinary Disorders: No Hx Sexually Transmitted Disorders: No Hx Renal Disease (ESRD): No Hx Thyroid Disease: No Hx Human Immunodeficiency Virus (HIV): No Hx Hepatitis C: No Hx Depression: No Hx Suicide Attempt: No Hx Bipolar Disorder: No Hx Schizophrenia: No - Patient Surgical History Past Surgical History: No - PPD History Previous Implant?: Yes Documented Results: Negative w/proof Implanted On Prior [facility] Admission?: Yes Date: 07/31/18 Results: NEGATIVE PPD to be Administered?: No - Smoking Cessation Smoking history: Former smoker Have you smoked in the past 12 months: No Aproximately how many cigarettes per day: 0 Cigars Per Day: 0 Hx Chewing Tobacco Use: No Initiated information on smoking cessation: No - Substances abused Alcohol Substance route: Oral Frequency: Daily Amount used: 4 CAN S OF 24 ounces BEER Age of first use: 14 Date of last use: 09/05/18 Family Disease History - Family Disease History Family Disease History: Diabetes: Grandparent, Other: Father (: with sequela of etoh cirrhosis), Mother (Alive, healthy), Brother (1, healthy), Sister (2, healthy) Admission Physical Exam S - Vital Signs Vital Signs: Vital Signs - 24 hr 09/05/18 09/05/18 18:22 18:52 Temperature 98.1 F 98.1 F Pulse Rate 103 H 103 H Respiratory 18 18 Rate Blood Pressure 156/80 156/80 - Physical General Appearance: Yes: No Apparent Distress, Obese, Irritable HEENTM: Yes: Hearing grossly Normal, Normocephalic, Normal Voice Respiratory: Yes: Chest Non-Tender, Lungs Clear, Normal Breath Sounds, Decreased Breath Sounds, No Accessory Muscle Use Neck: Yes: No masses,lesions,Nodules Breast: Yes: Breast Exam Deferred Cardiology: Yes: Regular Rhythm, Regular Rate, S1, S2 Abdominal: Yes: Normal Bowel Sounds, Non Tender Genitourinary: Yes: Within Normal Limits Back: Yes: Normal Inspection Musculoskeletal: Yes: full range of Motion, Muscle Pain Extremities: Yes: Normal Capillary Refill, Tremors Neurological: Yes: technical services librarian II-XII NML intact, Fully Oriented, Alert, Normal Mood/ Affect, Normal Response Integumentary: Yes: Normal Color, Clammy Lymphatic: Yes: Within Normal Limits - Diagnostic (1) Alcohol dependence with uncomplicated withdrawal Current Visit: No Status: Acute (2) Liver cirrhosis, alcoholic Current Visit: No Status: Chronic Qualifiers: Ascites presence: with ascites Qualified Code(s): K70.31 - Alcoholic cirrhosis of liver with ascites (3) Obese Current Visit: Yes Status: Chronic Qualifiers: Obesity type: due to excess calories Cleared for Admission S - Detox or Rehab [facility] Level of Care: Medically Managed Detox Regimen/Protocol: Librium Claeared for Rehab Admission: No Breathalyzer - Breathalyzer Breathalyzer: 0.320 Urine Drug Screen - Test Device Lot number: [id number] Expiration date: 06/04/20 - Control Is test valid?: Yes - Results Drug screen NEGATIVE: Yes Urine drug screen results: BZO-Benzodiazepines Inpatient Rehab Admission - Rehab Decision to Admit Inpatient rehab admission?: No
[2018-09-05] MEDS ORDERED: MAG HYDROX/AL HYDROX/SIMETH 30 ML UNIT-DOSE CUP PO PRN (19:27)
[2018-09-05] MEDS ORDERED: ACETAMINOPHEN 325 MG TABLET (FP) PO PRN ×2 (19:27)
[2018-09-05] MEDS ORDERED: METHOCARBAMOL 500 MG TABLET PO PRN (19:27)
[2018-09-05] MEDS ORDERED: MENTHOL/PHENOL 1 EACH UD MM PRN (19:27)
[2018-09-05] MEDS ORDERED: hydrOXYzine PAMOATE 25 MG CAPSULE (FP) PO PRN (19:27)
[2018-09-05] MEDS ORDERED: MAGNESIUM HYDROX 2400MG/30ML ORAL SUSPENSION 30 ML CUP PO PRN (19:27)
[2018-09-05] MEDS ORDERED: BISMUTH SUBSALICYLATE 524 MG/30 ML UD PO PRN (19:27)
[2018-09-05] MEDS ORDERED: MAGNESIUM CITRATE 300 ML BOTTLE PO PRN (19:27)
[2018-09-05] MEDS ORDERED: MELATONIN 5 MG TABLETS PO PRN (19:27)
[2018-09-05] MEDS ORDERED: IBUPROFEN 400 MG TABLET (FP) PO PRN (19:27)
[2018-09-05] MEDS ORDERED: ONDANSETRON *ODT* 4 MG TABLET SL PRN (19:27)
[2018-09-05] MEDS ORDERED: chlordiazePOXIDE HCL 10 MG CAPSULE PO PRN (19:27)
[2018-09-05] MEDS ORDERED: LACTULOSE 20 GM/30 ML UDC (FOR ORAL USE ONLY) PO PRN (19:29)
[2018-09-05] MEDS: chlordiazePOXIDE HCL 25 MG CAPSULE PO SCH (20:56)
[2018-09-05] MEDS: THIAMINE HCL 100 MG TABLET (FP) PO SCH (22:53)
[2018-09-06] MEDS: chlordiazePOXIDE HCL 25 MG CAPSULE PO SCH ×2 (05:12→12:26)
[2018-09-06] MEDS: PRENATAL VITAMINS W/ FOLIC ACID TABLET (FP) PO SCH (10:14)
[2018-09-06 10:53] LABS: HEMATOCRIT 31.9 % (35.4-49); MCH 33.1 pg (25.7-33.7); MCHC 34.5 g/dl (32.0-35.9); MEAN PLT VOLUME 8.5 fl (7.5-11.1); RBC 3.32 M/mm3 (4.00-5.60); RDW 14.9 % (11.9-15.9)
[2018-09-06 11:01] LABS: ALBUMIN 2.6 g/dl (3.4-5.0); BILIRUBIN,TOTAL 3.5 mg/dL (0.2-1); CALCIUM 8.1 mg/dL (8.5-10.1); CREATININE 0.4 mg/dL (0.55-1.3); POTASSIUM 3.7 mmol/L (3.5-5.1); TOT PROT 6.5 g/dl (6.4-8.2)
[2018-09-06 12:03] LABS: PLATELET COUNT 27 K/MM3 (134-434)
--- NOTE | 2018-09-06 13:26 | PN ---
[facility] CIWA - CIWA Score Nausea/Vomitin-Mild Nausea/No Vomiting Muscle Tremors: 3 Anxiety: 2 Agitation: 1-Slight > Activity Paroxysmal Sweats: 3 Orientation: 0-Oriented Tacttile Disturbances: 0-None Auditory Disturbances: 0-None Visual Disturbances: 0-None Headache: 0-None Present CIWA-Ar Total Score: 10 S Progress Note (SOAP) Subjective: [facility] Objective: 09/06/18 13:31 A & O X 3 Gait steady no acute distress noted Vital Signs Temperature 97.2 F L 09/06/18 13:15 Pulse Rate 102 H 09/06/18 13:15 Respiratory Rate 16 09/06/18 13:15 Blood Pressure 136/73 09/06/18 13:15 O2 Sat by Pulse Oximetry (%) Laboratory Last Values WBC 3.0 K/mm3 (4.0-10.0) L 09/06/18 07:40 RBC 3.32 M/mm3 (4.00-5.60) L 09/06/18 07:40 Hgb 11.0 GM/dL (11.7-16.9) L 09/06/18 07:40 Hct 31.9 % (35.4-49) L 09/06/18 07:40 MCV 96.0 fl (80-96) 09/06/18 07:40 MCH 33.1 pg (25.7-33.7) 09/06/18 07:40 MCHC 34.5 g/dl (32.0-35.9) 09/06/18 07:40 RDW 14.9 % (11.9-15.9) 09/06/18 07:40 Plt Count 27 K/MM3 (134-434) L* 09/06/18 07:40 MPV 8.5 fl (7.5-11.1) 09/06/18 07:40 Sodium 142 mmol/L (136-145) 09/06/18 07:40 Potassium 3.7 mmol/L (3.5-5.1) 09/06/18 07:40 Chloride 108 mmol/L (98-107) H 09/06/18 07:40 Carbon Dioxide 27 mmol/L (21-32) 09/06/18 07:40 Anion Gap 7 MMOL/L (8-16) L 09/06/18 07:40 BUN 3 mg/dL (7-18) L 09/06/18 07:40 Creatinine 0.4 mg/dL (0.55-1.3) L 09/06/18 07:40 Est GFR (CKD-EPI)AfAm 184.73 09/06/18 07:40 Est GFR (CKD-EPI)NonAf 159.38 09/06/18 07:40 Random Glucose 104 mg/dL (74-106) 09/06/18 07:40 Calcium 8.1 mg/dL (8.5-10.1) L 09/06/18 07:40 Total Bilirubin 3.5 mg/dL (0.2-1) H 09/06/18 07:40 AST 84 U/L (15-37) H 09/06/18 07:40 ALT 32 U/L (13-61) 09/06/18 07:40 Alkaline Phosphatase 195 U/L (45-117) H 09/06/18 07:40 Total Protein 6.5 g/dl (6.4-8.2) 09/06/18 07:40 Albumin 2.6 g/dl (3.4-5.0) L 09/06/18 07:40 Abnormal values note: pt has liver cirrhosis and thrombocytopenia Assessment: 09/06/18 13:41 Withdrawal sx Thrombocytopenia Liver cirrhosis Plan: Continue detox
[2018-09-06] MEDS: chlordiazePOXIDE 5 MG CAPSULE PO SCH (22:21)
[2018-09-06] MEDS: THIAMINE HCL 100 MG TABLET (FP) PO SCH (22:21)
[2018-09-07] MEDS: chlordiazePOXIDE 5 MG CAPSULE PO SCH ×2 (05:21→14:51)
[2018-09-07] MEDS: PRENATAL VITAMINS W/ FOLIC ACID TABLET (FP) PO SCH (10:27)
--- NOTE | 2018-09-07 10:53 | PN ---
S CIWA - CIWA Score Nausea/Vomitin-Mild Nausea/No Vomiting Muscle Tremors: 2 Anxiety: 2 Agitation: 1-Slight > Activity Paroxysmal Sweats: No Perspiration Orientation: 0-Oriented Tacttile Disturbances: 0-None Auditory Disturbances: 0-None Visual Disturbances: 0-None Headache: 0-None Present CIWA-Ar Total Score: 6 BHS Progress Note (SOAP) Subjective: feeling better today preferring return to [facility] out patient form alcohol, medical, and mental issues Objective: 09/07/18 10:52 Vital Signs Temperature 98.7 F 09/07/18 09:12 Pulse Rate 97 H 09/07/18 09:12 Respiratory Rate 18 09/07/18 09:12 Blood Pressure 144/77 09/07/18 09:12 O2 Sat by Pulse Oximetry (%) Laboratory Last Values WBC 3.0 K/mm3 (4.0-10.0) L 09/06/18 07:40 RBC 3.32 M/mm3 (4.00-5.60) L 09/06/18 07:40 Hgb 11.0 GM/dL (11.7-16.9) L 09/06/18 07:40 Hct 31.9 % (35.4-49) L 09/06/18 07:40 MCV 96.0 fl (80-96) 09/06/18 07:40 MCH 33.1 pg (25.7-33.7) 09/06/18 07:40 MCHC 34.5 g/dl (32.0-35.9) 09/06/18 07:40 RDW 14.9 % (11.9-15.9) 09/06/18 07:40 Plt Count 27 K/MM3 (134-434) L* 09/06/18 07:40 MPV 8.5 fl (7.5-11.1) 09/06/18 07:40 Sodium 142 mmol/L (136-145) 09/06/18 07:40 Potassium 3.7 mmol/L (3.5-5.1) 09/06/18 07:40 Chloride 108 mmol/L (98-107) H 09/06/18 07:40 Carbon Dioxide 27 mmol/L (21-32) 09/06/18 07:40 Anion Gap 7 MMOL/L (8-16) L 09/06/18 07:40 BUN 3 mg/dL (7-18) L 09/06/18 07:40 Creatinine 0.4 mg/dL (0.55-1.3) L 09/06/18 07:40 Est GFR (CKD-EPI)AfAm 184.73 09/06/18 07:40 Est GFR (CKD-EPI)NonAf 159.38 09/06/18 07:40 Random Glucose 104 mg/dL (74-106) 09/06/18 07:40 Calcium 8.1 mg/dL (8.5-10.1) L 09/06/18 07:40 Total Bilirubin 3.5 mg/dL (0.2-1) H 09/06/18 07:40 AST 84 U/L (15-37) H 09/06/18 07:40 ALT 32 U/L (13-61) 09/06/18 07:40 Alkaline Phosphatase 195 U/L (45-117) H 09/06/18 07:40 Total Protein 6.5 g/dl (6.4-8.2) 09/06/18 07:40 Albumin 2.6 g/dl (3.4-5.0) L 09/06/18 07:40 RPR Titer Nonreactive (NONREACTIVE) 09/06/18 07:40 lab noted chronic low plat discontinue motrin 09/07/18 10:55 Assessment: 09/07/18 10:56 mild alcohol withdrawal sx Plan: continue detox
[2018-09-07] MEDS ORDERED: chlordiazePOXIDE HCL 10 MG CAPSULE PO PRN (21:00)
[2018-09-07] MEDS: chlordiazePOXIDE HCL 10 MG CAPSULE PO SCH (22:00)
[2018-09-07] MEDS: THIAMINE HCL 100 MG TABLET (FP) PO SCH (22:18)
[2018-09-08] MEDS: chlordiazePOXIDE HCL 10 MG CAPSULE PO SCH (05:24)
[2018-09-08 06:01] VITALS: BP 119/62; PULSE 88; TEMP 98.2
--- NOTE | 2018-09-08 16:29 | DS ---
[facility] Detox Discharge Summary Admission Date: 09/05/18 Discharge Date: 09/08/18 - History Present History: Alcohol Dependence Additional Comments: PATIENT LEFT DETOX UNIT BEFORE EXTENSION EDGER WAS ABLE TO SPEAK WITH HIM TO CONDUCT PRE- DISCHARGE MEDICAL ASSESSMENT (INCLUDING INQUIRY ABOUT DISCHARGE MEDICATIONS). PER SENIOR UI SOFTWARE ENGINEER Micky WU, PATIENT REFERRED TO [facility] SUBSTANCE USE TREATMENT [facility]GRAM ([place]) FOR AFTERCARE. Pertinent Past History: History Of Cirrhosis Of Liver, History Of Esophageal Varices, Pancytopenia, Elevated Liver Enzymes, Hyperbilirubinemia, Hypocalcemia. - Physical Exam Results Vital Signs: Vital Signs Temperature 98.2 F 09/08/18 06:00 Pulse Rate 88 09/08/18 06:00 Respiratory Rate 18 09/08/18 06:00 Blood Pressure 119/62 09/08/18 06:00 O2 Sat by Pulse Oximetry (%) Pertinent Admission Physical Exam Findings: WITHDRAWAL SYMPTOMS. Laboratory Tests 09/06/18 09/06/18 09/06/18 07:40 07:40 07:40 WBC 3.0 L RBC 3.32 L Hgb 11.0 L Hct 31.9 L MCV 96.0 MCH 33.1 MCHC 34.5 RDW 14.9 Plt Count 27 L* MPV 8.5 Sodium 142 Potassium 3.7 Chloride 108 H Carbon Dioxide 27 Anion Gap 7 L BUN 3 L Creatinine 0.4 L Est GFR (CKD-EPI)AfAm 184.73 Est GFR (CKD-EPI)NonAf 159.38 Random Glucose 104 Calcium 8.1 L Total Bilirubin 3.5 H AST 84 H ALT 32 Alkaline Phosphatase 195 H Total Protein 6.5 Albumin 2.6 L RPR Titer Nonreactive LABS NOTED. - Treatment Hospital Course: Detox Protocol Followed, Detoxed Safely, Responded well, Discharged Condition Good Patient has Accepted a Rehab Referral to: PT. REFERRED TO [facility] OUTPATIENT TREATMENT PROGRAM ([place]). - Medication Discharge Medications: Ambulatory Orders Folic Acid - 1 mg PO DAILY 30 Days #30 tablet 04/01/18 Thiamine HCl [B-1] 100 mg PO DAILY 07/08/18 Lactulose (Oral Use) [Cephulac -] 20 gm PO Q8H PRN #1 udc 08/02/18 - Diagnosis (1) Alcohol dependence with uncomplicated withdrawal Status: Acute (2) Elevated liver enzymes Status: Acute (3) Hypocalcemia Status: Acute (4) Pancytopenia Status: Acute (5) Hyperbilirubinemia Status: Acute (6) Liver cirrhosis, alcoholic Status: Chronic Qualifiers: Ascites presence: with ascites Qualified Code(s): K70.31 - Alcoholic cirrhosis of liver with ascites (7) Obese Status: Chronic Qualifiers: Obesity type: due to excess calories Obesity classification: adult class 3 (BMI >= 40) Serious obesity comorbidity presence: unspecified whether serious comorbidity present Body mass index: BMI 40.0-44.9 Qualified Code(s): E66.01 - Morbid (severe) obesity due to excess calories; Z68.41 - Body mass index (BMI) 40.0-44.9, adult - AMA Did Patient Leave Against Medical Advice: No
== END 2018-09-08 08:36 | disposition home or self-care (01) | DRG 775 ==
LOC: YASAS 16:30 → Y3N 18:57
PROVIDERS: ADMIT Surgery; ATTEND Surgery
PROC: HZ2ZZZZ Detoxification Services for Substance Abuse Treatment (ICD-10-PCS; principal; 2018-09-05)
DX: F10.230 Alcohol dependence with withdrawal, uncomplicated (principal); F13.20 Sedative, hypnotic or anxiolytic dependence, uncomplicated; K70.31 Alcoholic cirrhosis of liver with ascites; D69.6 Thrombocytopenia, unspecified; D61.818 Other pancytopenia; E83.51 Hypocalcemia; E80.6 Other disorders of bilirubin metabolism; R94.5 Abnormal results of liver function studies; E66.9 Obesity, unspecified; Z68.41 Body mass index [BMI] 40.0-44.9, adult
CPT/HCPCS: 36415; 80053; 85027; 86593; Q0162

== ENCOUNTER 2018-10-01 11:43 | Inpatient (IN) | payer OTHER ==
[2018-10-01 13:59] VITALS: BMI 45.7
--- NOTE | 2018-10-01 16:36 | HP ---
CIWA Score Nausea/Vomitin-No Nausea/No Vomiting Muscle Tremors: 2 Anxiety: 4-Mod. Anxious/Guarded Agitation: 1-Slight > Activity Paroxysmal Sweats: No Perspiration Orientation: 0-Oriented Tacttile Disturbances: 0-None Auditory Disturbances: 0-None Visual Disturbances: 1-Very Mild Sensitivity Headache: 2-Mild CIWA-Ar Total Score: 10 - Admission Criteria OASAS Guidelines: Admission for Medically Managed Detox: Requires at least one of the followin. CIWA greater than 12 2. Seizures within the past 24 hours 3. Delirium tremens within the past 24 hours 4. Hallucinations within the past 24 hours 5. Acute intervention needed for co occurring medical disorder 6. Acute intervention needed for co occurring psychiatric disorder 7. Severe withdrawal that cannot be handled at a lower level of care (continued vomiting, continued diarrhea, abnormal vital signs) requiring intravenous medication and/or fluids 8. Admission ROS S - HPI Allergies/Adverse Reactions: Allergies Allergy/AdvReac Type Severity Reaction Status Date / Time No Known Allergies Allergy Verified 10/01/18 13:53 History of Present Illness: pt here requesting detox from etoh use , reports 5 cans x 13 oz each , starts drinking in the evenings, reports tremors if not drinking , denies seizures , blackouts , falls while intoxicated, denies driving , latest use this morning . pmhx : cirrhosis of the liver pshx : denies psych : denies meds : lactulose tobacco ; denies Exam Limitations: Clinical Condition, Intoxication - Ebola screening Have you traveled outside of the country in the last 21 days: No Have you had contact with anyone from an Ebola affected area: No - Review of Systems Constitutional: See HPI EENT: reports: See HPI Respiratory: reports: No Symptoms reported Cardiac: reports: No Symptoms Reported GI: reports: See HPI, Constipated : reports: No Symptoms Reported Musculoskeletal: reports: Back Pain Neuro: reports: See HPI Endocrine: reports: No Symptoms Reported Psychiatric: reports: Orientated x3 Patient History - Patient Medical History Hx Anemia: No Hx Asthma: No Hx Chronic Obstructive Pulmonary Disease (COPD): No Hx Cancer: No Hx Cardiac Disorders: No Hx Congestive Heart Failure: No Hx Hypertension: No Hx Hypercholesterolemia: No Hx Pacemaker: No HX Cerebrovascular Accident: No Hx Seizures: No Hx Dementia: No Hx Diabetes: No Hx Gastrointestinal Disorders: No Hx Liver Disease: Yes (Cirrhosis, varices) Hx Genitourinary Disorders: No Hx Sexually Transmitted Disorders: No Hx Renal Disease (ESRD): No Hx Thyroid Disease: No Hx Human Immunodeficiency Virus (HIV): No Hx Hepatitis C: No Hx Depression: No Hx Suicide Attempt: No Hx Bipolar Disorder: No Hx Schizophrenia: No - Patient Surgical History Past Surgical History: No Hx Neurologic Surgery: No Hx Cataract Extraction: No Hx Cardiac Surgery: No Hx Lung Surgery: No Hx Breast Surgery: No Hx Breast Biopsy: No Hx Abdominal Surgery: No Hx Appendectomy: No Hx Cholecystectomy: No Hx Genitourinary Surgery: No Hx Section: No Hx Orthopedic Surgery: No Hx Hysterectomy: No Anesthesia Reaction: No - PPD History Date: 07/31/18 Results: NEGATIVE - Smoking Cessation Smoking history: Former smoker Have you smoked in the past 12 months: No Aproximately how many cigarettes per day: 0 Cigars Per Day: 0 Hx Chewing Tobacco Use: No Initiated information on smoking cessation: No - Substances abused Alcohol Substance route: Oral Frequency: Daily Amount used: 5 CAN S OF 24 ounces BEER Age of first use: 14 Date of last use: 10/01/18 Family Disease History - Family Disease History Family Disease History: Diabetes: Grandparent, Other: Father (: with sequela of etoh cirrhosis), Mother (Alive, healthy), Brother (1, healthy), Sister (2, healthy) Admission Physical Exam S - Vital Signs Vital Signs: Vital Signs - 24 hr 10/01/18 13:54 Temperature 98.0 F Pulse Rate 108 H Respiratory 18 Rate Blood Pressure 116/65 - Physical General Appearance: Yes: Mild Distress, Alcohol on Breath, Intoxicated HEENTM: Yes: Normocephalic, Normal Voice Respiratory: Yes: Normal Breath Sounds, No Respiratory Distress, No Accessory Muscle Use Neck: Yes: No masses,lesions,Nodules, Trachea in good position Cardiology: Yes: Regular Rhythm, Regular Rate, S1, S2, Tachycardia Abdominal: Yes: Non Tender, Soft Extremities: Yes: Tremors Neurological: Yes: Alert, Motor Strength 5/5 Integumentary: Yes: Warm, Other (varicosities lle) - Diagnostic (1) Alcohol intoxication Current Visit: Yes Status: Acute Qualifiers: Complication of substance-induced condition: uncomplicated Qualified Code(s ): F10.920 - Alcohol use, unspecified with intoxication, uncomplicated Breathalyzer - Breathalyzer Breathalyzer: 0.260 Urine Drug Screen - Test Device Lot number: [id number] Expiration date: 06/04/20 - Control Is test valid?: Yes - Results Drug screen NEGATIVE: No Urine drug screen results: BZO-Benzodiazepines Inpatient Rehab Admission - Rehab Decision to Admit Inpatient rehab admission?: No
[2018-10-01] MEDS ORDERED: ACETAMINOPHEN 325 MG TABLET (FP) PO PRN ×2 (16:41)
[2018-10-01] MEDS ORDERED: MAGNESIUM HYDROX 2400MG/30ML ORAL SUSPENSION 30 ML CUP PO PRN (16:41)
[2018-10-01] MEDS ORDERED: LACTULOSE 20 GM/30 ML UDC (FOR ORAL USE ONLY) PO PRN (16:41)
[2018-10-01] MEDS ORDERED: IBUPROFEN 400 MG TABLET (FP) PO PRN (16:41)
[2018-10-01] MEDS ORDERED: LORazepam 1 MG TABLET PO PRN (16:41)
[2018-10-01] MEDS ORDERED: BISMUTH SUBSALICYLATE 524 MG/30 ML UD PO PRN (16:41)
[2018-10-01] MEDS ORDERED: hydrOXYzine PAMOATE 25 MG CAPSULE (FP) PO PRN (16:41)
[2018-10-01] MEDS ORDERED: MENTHOL/PHENOL 1 EACH UD MM PRN (16:41)
[2018-10-01] MEDS ORDERED: MELATONIN 5 MG TABLETS PO PRN (16:41)
[2018-10-01] MEDS ORDERED: MAGNESIUM CITRATE 300 ML BOTTLE PO PRN (16:41)
[2018-10-01] MEDS: LORazepam 2 MG TABLET PO SCH ×2 (19:22→22:36)
[2018-10-01] MEDS: THIAMINE HCL 100 MG TABLET (FP) PO SCH (22:36)
[2018-10-02] MEDS: LORazepam 2 MG TABLET PO SCH ×2 (05:41→10:34)
[2018-10-02] MEDS: PRENATAL VITAMINS W/ FOLIC ACID TABLET (FP) PO SCH (10:34)
--- NOTE | 2018-10-02 11:58 | PN ---
S CIWA - CIWA Score Nausea/Vomitin-No Nausea/No Vomiting Muscle Tremors: 2 Anxiety: 3 Agitation: 2 Paroxysmal Sweats: 2 Orientation: 0-Oriented Tacttile Disturbances: 0-None Auditory Disturbances: 0-None Visual Disturbances: 0-None Headache: 0-None Present CIWA-Ar Total Score: 9 BHS Progress Note (SOAP) Subjective: sweats anxiety feeling better Objective: 10/02/18 11:58 Vital Signs Temperature 97.7 F 10/02/18 09:25 Pulse Rate 103 H 10/02/18 11:30 Respiratory Rate 18 10/02/18 09:25 Blood Pressure 123/69 10/02/18 09:25 O2 Sat by Pulse Oximetry (%) pt has recent labs drawn earlier this month results WNL; therefore no repeat labs required. aaox3 ambulating no acute distress Assessment: 10/02/18 12:00 withdrawal sx Plan: continue detox increase fluids
[2018-10-02] MEDS: LORazepam 1 MG TABLET PO SCH ×2 (18:05→22:31)
[2018-10-02] MEDS: THIAMINE HCL 100 MG TABLET (FP) PO SCH (22:30)
[2018-10-02] MEDS: MAG HYDROX/AL HYDROX/SIMETH 30 ML UNIT-DOSE CUP PO PRN (22:32)
[2018-10-03] MEDS: LORazepam 1 MG TABLET PO SCH ×2 (05:23→10:33)
[2018-10-03] MEDS: PRENATAL VITAMINS W/ FOLIC ACID TABLET (FP) PO SCH (10:33)
--- NOTE | 2018-10-03 10:55 | PN ---
S CIWA - CIWA Score Nausea/Vomitin-No Nausea/No Vomiting Muscle Tremors: 1-None Visible, but [place] Anxiety: 2 Agitation: 0-Normal Activity Paroxysmal Sweats: 3 Orientation: 0-Oriented Tacttile Disturbances: 0-None Auditory Disturbances: 0-None Visual Disturbances: 0-None Headache: 2-Mild CIWA-Ar Total Score: 8 BHS Progress Note (SOAP) Subjective: c/o sweats, headache, and anxiety. Objective: 10/03/18 10:54 Vital Signs 10/03/18 10/03/18 06:00 10:48 Temperature 98.8 F 99.1 F Pulse Rate 95 H 106 H Respiratory 18 17 Rate Blood Pressure 128/82 125/76 Assessment: 10/03/18 10:55 AOX3, in no acute distress Full ROM, ambulating in the unit. mild withdrawal symptoms. Plan: continue detox.
[2018-10-03] MEDS ORDERED: LORazepam 0.5 MG TABLET PO PRN (17:00)
[2018-10-03] MEDS: LORazepam 0.5 MG TABLET PO SCH ×2 (18:37→22:16)
[2018-10-03] MEDS: MAG HYDROX/AL HYDROX/SIMETH 30 ML UNIT-DOSE CUP PO PRN (18:38)
[2018-10-03] MEDS: THIAMINE HCL 100 MG TABLET (FP) PO SCH (22:16)
[2018-10-04] MEDS: LORazepam 0.5 MG TABLET PO SCH (05:41)
[2018-10-04 09:29] VITALS: BP 124/64; PULSE 101; TEMP 98.2
--- NOTE | 2018-10-04 11:29 | DS ---
[facility] Detox Discharge Summary Admission Date: 10/01/18 Discharge Date: 10/04/18 - History Present History: Alcohol Dependence Additional Comments: Patient completed detox successfully. Patient is A/A/Ox3, in nad, ambulatory. Patient discharged safely. Instructed to follow up with PCP within 1-2 weeks. Patient stated that this is his second detox and that he will follow up in outpatient rehab because that's the right placement for him. Encouraged abstinence from alcohol and illicit drug use. Pertinent Past History: Alcohol dependence Liver cirrhosis - Physical Exam Results Vital Signs: Vital Signs Temperature 98.2 F 10/04/18 09:28 Pulse Rate 101 H 10/04/18 09:28 Respiratory Rate 18 10/04/18 09:28 Blood Pressure 124/64 10/04/18 09:28 O2 Sat by Pulse Oximetry (%) Pertinent Admission Physical Exam Findings: Withdrawal symptoms No admission labs - Treatment Hospital Course: Detox Protocol Followed, Detoxed Safely, Responded well, Discharged Condition Good, Rehab Referral Accepted - Medication Discharge Medications: Ambulatory Orders Folic Acid - 1 mg PO DAILY 30 Days #30 tablet 04/01/18 Thiamine HCl [B-1] 100 mg PO DAILY 07/08/18 Lactulose (Oral Use) [Cephulac -] 20 gm PO Q8H PRN #1 udc 08/02/18 - Diagnosis (1) Alcohol dependence with uncomplicated withdrawal Status: Acute (2) Liver cirrhosis, alcoholic Status: Chronic Qualifiers: Ascites presence: with ascites Qualified Code(s): K70.31 - Alcoholic cirrhosis of liver with ascites - AMA Did Patient Leave Against Medical Advice: No (Instructed to follow up with PCP within 1-2 weeks)
== END 2018-10-04 09:48 | disposition home or self-care (01) | DRG 775 ==
LOC: YASAS 11:43 → Y6N 18:42
PROVIDERS: ADMIT Surgery; ATTEND Surgery
PROC: HZ2ZZZZ Detoxification Services for Substance Abuse Treatment (ICD-10-PCS; principal; 2018-10-01)
DX: F10.230 Alcohol dependence with withdrawal, uncomplicated (principal); F10.220 Alcohol dependence with intoxication, uncomplicated; K70.31 Alcoholic cirrhosis of liver with ascites; R00.0 Tachycardia, unspecified; Z87.891 Personal history of nicotine dependence

== ENCOUNTER 2018-10-07 00:38 | Emergency (ER) | payer OTHER ==
[2018-10-07 01:59] VITALS: BMI 44.8
[2018-10-07] MEDS ORDERED: LORazepam 0.5 MG TABLET PO ONE (02:12)
[2018-10-07] MEDS ORDERED: LORazepam 1 MG TABLET PO ONE (02:13)
--- NOTE | 2018-10-07 02:17 | PDOC ---
History of Present Illness - General Chief Complaint: Tremors Stated Complaint: TREMORS/DETOX Time Seen by Provider: 10/07/18 01:58 History Source: Patient Exam Limitations: No Limitations - History of Present Illness Initial Comments: 10/07/18 02:12 28M with a PMH of EtOH abuse, s/p detox (discharged 10/04/18) who presents to the ER for insomnia. The patient states that he has not been able to sleep since he was discharged from detox. He states that he is emotional due to the anniversary of his father passing away 1 year ago. He denies CP, SOB, nausea, vomiting, abdominal pain. Past History - Past Medical History Allergies/Adverse Reactions: Allergies Allergy/AdvReac Type Severity Reaction Status Date / Time No Known Allergies Allergy Verified 10/07/18 01:57 Home Medications: Ambulatory Orders Folic Acid - 1 mg PO DAILY 30 Days #30 tablet 04/01/18 Thiamine HCl [B-1] 100 mg PO DAILY 07/08/18 Lactulose (Oral Use) [Cephulac -] 20 gm PO Q8H PRN #1 udc 08/02/18 LORazepam [Ativan] 0.5 mg PO HS PRN 4 Days #4 tablet MDD 1 10/07/18 Anemia: No Asthma: No Cancer: No Cardiac Disorders: No CVA: No COPD: No CHF: No DVT: No Dementia: No Diabetes: No GI Disorders: No Disorders: No HTN: No Hypercholesterolemia: No Kidney Stones: No Liver Disease: Yes (Cirrhosis, varices) Seizures: No Thyroid Disease: No Lung CA: No - Surgical History Abdominal Surgery: No Appendectomy: No Cardiac Surgery: No Cholecystectomy: No Gastric Stapling: No Lung Surgery: No Neurologic Surgery: No Orthopedic Surgery: No - Reproductive History Testicular Surgery: No - Immunization History Immunization Up to Date: No - Suicide/Smoking/Psychosocial Hx Smoking Status: No Smoking History: Never smoked Have you smoked in the past 12 months: No Number of Cigarettes Smoked Daily: 0 Cigars Per Day: 0 Information on smoking cessation initiated: No Hx Alcohol Use: No Drug/Substance Use Hx: No Substance Use Type: Alcohol Hx Substance Use Treatment: Yes Review of Systems - Review of Systems Able to Perform ROS?: Yes Comments:: 10/07/18 02:50 GENERAL/CONSTITUTIONAL: + for insomnia. No fever or chills. No weakness. HEAD, EYES, EARS, NOSE AND THROAT: No change in vision. No ear pain or discharge. No sore throat. CARDIOVASCULAR: No chest pain, palpitations, or lightheadedness. RESPIRATORY: No cough, wheezing, shortness of breath, or hemoptysis. GASTROINTESTINAL: No abdominal pain, nausea, vomiting, diarrhea, or constipation. GENITOURINARY: No dysuria, frequency, hematuria, or change in urination. MUSCULOSKELETAL: No joint or muscle swelling or pain. No neck or back pain. SKIN: No rash or lesions. NEUROLOGIC: No headache, numbness, tingling, focal weakness, loss of consciousness, or change in strength/sensation. Is the patient limited Yi proficient: No *Physical Exam - Vital Signs Last Vital Signs Temp Pulse Resp BP Pulse Ox 98.8 F 110 H 18 144/77 97 10/07/18 00:38 10/07/18 00:38 10/07/18 00:38 10/07/18 00:38 10/07/18 00:38 - Physical Exam Comments: 10/07/18 02:50 GENERAL: Well developed, well nourished. Awake and alert. HEENT: Normocephalic, atraumatic. Hearing grossly normal. Moist mucous membranes. PERRLA, EOMI. No conjunctival pallor. Sclera are non-icteric. NECK: Supple. Full ROM. No JVD. CARDIOVASCULAR: Regular rate and rhythm. No murmurs, rubs, or gallops. PULMONARY: No evidence of respiratory distress. Lungs clear to auscultation bilaterally. No wheezing, rales or rhonchi. ABDOMINAL: Soft. Non-tender. Non-distended. No rebound or guarding. GENITOURINARY: No CVA tenderness bilaterally. MUSCULOSKELETAL: Normal range of motion at all joints. No bony deformities or tenderness. EXTREMITIES: No cyanosis. No clubbing. No edema. No calf tenderness or swelling. SKIN: Warm and dry. Normal capillary refill. No rashes. No jaundice. NEUROLOGICAL: Alert, awake, appropriate. Cranial nerves 2-12 grossly intact. Normal speech. Gait is normal without ataxia. PSYCHIATRIC: Cooperative. Good eye contact. Anxious appearing. Medical Decision Making - Medical Decision Making 10/07/18 02:51 28M with a PMH of EtOH abuse, s/p detox d/c 3 days ago who presents with anxiety. Will give PO dose of ativan and 2 day prescription with psych f/u. Pt agrees. Will d/c with psych and pcp f/u. 10/07/18 03:00 Repeat temp 98.0. Will d/c with PCP f/u. *DC/Admit/Observation/Transfer Diagnosis at time of Disposition: Insomnia Qualifiers: Insomnia type: unspecified Qualified Code(s): G47.00 - Insomnia, unspecified - Discharge Dispostion Disposition: HOME Condition at time of disposition: Stable Decision to Admit order: No - Prescriptions Prescriptions: LORazepam [Ativan] 0.5 mg PO HS PRN 4 Days #4 tablet MDD 1 PRN Reason: Anxiety - Referrals Referrals: Fawad Davila MD [Staff Physician] - Miguel Poe NP [Nurse Practitioner] - [facility] [place] [Provider Group] - Patient Instructions Printed Discharge Instructions: Insomnia (Alternative Therapy) Additional Instructions: Your ER visit is not complete until your follow up with your primary care physician. Please follow up with your primary care physician in 1-2 days. Please return to the ER if you have any signs or symptoms of chest pain, shortness of breath, uncontrollable fever, chills, nausea, vomiting, numbness, tingling, or weakness in any part of your body, changes in vision, or slurred speech. Please return to the ER if symptoms persist, worsen, or new symptoms arise. - Post Discharge Activity
[2018-10-07] MEDS ORDERED: LORazepam 0.5 MG TABLET ONE (02:20)
[2018-10-07] MEDS ORDERED: IBUPROFEN 600 MG TABLET (FP) PO ONE ×2 (02:32→02:46)
--- NOTE | 2018-10-07 02:59 | PDOC ---
Documentation entered by Hussain Smith SCRIBE, acting as scribe for Deneen Calero DO. Deneen Calero DO: This documentation has been prepared by the Luis singh Elijah, SCRIBE, under my direction and personally reviewed by me in its entirety. I confirm that the documentation accurately reflects all work , treatment, procedures, and medical decision making performed by me. Attending Attestation - Resident Resident Name: Austyn Hendrickson - ED Attending Attestation I have performed the following: I have examined & evaluated the patient, The case was reviewed & discussed with the resident, I agree w/resident's findings & plan - HPI HPI: 10/07/18 02:54 The patient is a 28 year old male with a significant PMH of ETOH Abuse ( discharged from Detox 10/04/2018) who presents to the ED with insomnia lasting for x4 days. The patient reports laying down restlessly for the last few days and came to the ED in hopes of receiving something that would help him sleep. Allergies: NKA - Physicial Exam PE: 10/07/18 02:54 Agree with Resident's Exam - Medical Decision Making 10/07/18 02:55 28-year-old male post detox complaining of insomnia Ativan 1 mg even by mouth as well as Motrin 600 mg 4 body aches Low-grade temp recorded in the emergency department has no specific associated symptoms Patient will be discharged home at this time with recommendations to follow-up with his regular physician and to return to the emergency department if his condition worsens
[2018-10-07 04:16] VITALS: BP 127/66; PULSE 98; TEMP 99
== END 2018-10-07 04:16 | disposition home or self-care (01) ==
LOC: JER 00:38
DX: G47.00 Insomnia, unspecified (principal)
CPT/HCPCS: 99281-25

== ENCOUNTER 2018-10-31 10:08 | Inpatient (IN) | payer OTHER | END 2018-11-01 09:15 | disposition left against medical advice (07) | LOC: YASAS 10:08 → Y3N 13:50 ==

== ENCOUNTER 2019-02-17 23:15 | Inpatient (IN) | payer OTHER ==
[2019-02-17 23:31] VITALS: BMI 47.2
--- NOTE | 2019-02-18 00:17 | HP ---
CIWA Score Nausea/Vomitin-Mild Nausea/No Vomiting Muscle Tremors: 4-Moderate,w/Arms Extend Anxiety: 4-Mod. Anxious/Guarded Agitation: 3 Paroxysmal Sweats: 3 Orientation: 1-Uncertain about Date Tacttile Disturbances: 0-None Auditory Disturbances: 0-None Visual Disturbances: 0-None Headache: 0-None Present CIWA-Ar Total Score: 16 - Admission Criteria OASAS Guidelines: Admission for Medically Managed Detox: Requires at least one of the followin. CIWA greater than 12 2. Seizures within the past 24 hours 3. Delirium tremens within the past 24 hours 4. Hallucinations within the past 24 hours 5. Acute intervention needed for co occurring medical disorder 6. Acute intervention needed for co occurring psychiatric disorder 7. Severe withdrawal that cannot be handled at a lower level of care (continued vomiting, continued diarrhea, abnormal vital signs) requiring intravenous medication and/or fluids 8. Admitting History and Physical - Past Medical History Hepatobiliary: Yes: Cirrhosis ([place]), Other (Alcoholic hepatitis, esophageal varices s/p EVL (non-bleeding) 05/25) - Smoking History Smoking history: Current some day smoker Have you smoked in the past 12 months: Yes Aproximately how many cigarettes per day: 10 - Alcohol/Substance Use Hx Alcohol Use: Yes History of Substance Use: reports: None - Social History ADL: Independent History of Recent Travel: No Admission [facility] Chief Complaint: Alcohol withdrawal symptoms Allergies/Adverse Reactions: Allergies Allergy/AdvReac Type Severity Reaction Status Date / Time No Known Allergies Allergy Verified 02/17/19 23:24 History of Present Illness: 29 years old male with a long history of alcohol dependence is seeking admission to detox. Patient has been in detox multiple times and reports insignificant period of sobriety. He has medical history of GERD, hypertension , Cirrhosis (Alcoholic), (Alcoholic hepatitis, esophageal varices) He denies suicidal ideation at this time Exam Limitations: Intoxication - Ebola screening Have you traveled outside of the country in the last 21 days: No (N) Have you had contact with anyone from an Ebola affected area: No Do you have a fever: No - Review of Systems Constitutional: Chills, Malaise, Night Sweats, Changes in sleep EENT: reports: No Symptoms Reported Respiratory: reports: No Symptoms reported Cardiac: reports: No Symptoms Reported GI: reports: Nausea, Poor Appetite, Poor Fluid Intake, Vomiting, Indigestion, Abdominal cramping : reports: No Symptoms Reported Musculoskeletal: reports: No Symptoms Reported Integumentary: reports: Dryness, Flushing Neuro: reports: Tremors, Weakness Endocrine: reports: No Symptoms Reported Hematology: reports: No Symptoms Reported Psychiatric: reports: Mood/Affect Appropiate, Orientated x3, Agitated, Anxious Other Systems: Reviewed and Negative Patient History - Patient Medical History Hx Anemia: No Hx Asthma: No Hx Chronic Obstructive Pulmonary Disease (COPD): No Hx Cancer: No Hx Cardiac Disorders: No Hx Congestive Heart Failure: No Hx Hypertension: Yes (Not on medication) Hx Hypercholesterolemia: No Hx Pacemaker: No HX Cerebrovascular Accident: No Hx Seizures: No Hx Dementia: No Hx Diabetes: No Hx Gastrointestinal Disorders: Yes (GERD) Hx Liver Disease: Yes (Cirrhosis, varices) Hx Genitourinary Disorders: No Hx Sexually Transmitted Disorders: No Hx Renal Disease (ESRD): No Hx Thyroid Disease: No Hx Human Immunodeficiency Virus (HIV): No Hx Hepatitis C: No Hx Depression: Yes (in [facility] - got out October 13 2018) Hx Suicide Attempt: No Hx Bipolar Disorder: No Hx Schizophrenia: No - Patient Surgical History Past Surgical History: Yes Hx Neurologic Surgery: No Hx Cataract Extraction: No Hx Cardiac Surgery: No Hx Lung Surgery: No Hx Breast Surgery: No Hx Breast Biopsy: No Hx Abdominal Surgery: Yes (banding of esophageal varices) Hx Appendectomy: No Hx Cholecystectomy: No Hx Genitourinary Surgery: No Hx Section: No Hx Orthopedic Surgery: No Hx Hysterectomy: No Anesthesia Reaction: No - PPD History Previous Implant?: Yes Documented Results: Negative w/proof Date: 07/31/18 Results: NEGATIVE PPD to be Administered?: No - Reproductive History Patient is a Female of Child Bearing Age (11 -55 yrs old): No (male) - Smoking Cessation Smoking history: Current some day smoker Have you smoked in the past 12 months: Yes Aproximately how many cigarettes per day: 10 Cigars Per Day: 0 Hx Chewing Tobacco Use: No Initiated information on smoking cessation: Yes 'Breaking Loose' booklet given: 02/18/19 - Substance & Tx. History Hx Alcohol Use: Yes Hx Substance Use: No Substance Use Type: Alcohol Hx Substance Use Treatment: Yes ([facility]) - Substances abused Alcohol Substance route: Oral Frequency: Daily Amount used: 5 Cans OF 24 ounces BEER Age of first use: 14 Date of last use: 02/17/19 Admission Physical Exam [facility] - Vital Signs Vital Signs: Vital Signs - 24 hr 02/17/19 23:25 Temperature 99.6 F Pulse Rate 120 H Respiratory 16 Rate Blood Pressure 162/79 - Physical General Appearance: Yes: Moderate Distress HEENTM: Yes: Within Normal Limits, EOMI, Normal Voice, PELON Respiratory: Yes: Lungs Clear, Normal Breath Sounds, No Respiratory Distress Neck: Yes: Supple Breast: Yes: Breast Exam Deferred Cardiology: Yes: Within Normal Limits Abdominal: Yes: Normal Bowel Sounds Genitourinary: Yes: Within Normal Limits Back: Yes: Normal Inspection Musculoskeletal: Yes: Within Normal Limits, full range of Motion Extremities: Yes: Tremors Neurological: Yes: Alert, Motor Strength 5/5, Normal Mood/Affect, Normal Response Integumentary: Yes: Normal Color, Warm Lymphatic: Yes: Within Normal Limits - Diagnostic (1) Alcohol dependence with uncomplicated withdrawal Current Visit: Yes Status: Acute (2) Insomnia Current Visit: No Status: Acute Qualifiers: Insomnia type: unspecified Qualified Code(s): G47.00 - Insomnia, unspecified (3) Alcoholic hepatitis Current Visit: No Status: Chronic Qualifiers: Ascites presence: without ascites Qualified Code(s): K70.10 - Alcoholic hepatitis without ascites (4) GERD (gastroesophageal reflux disease) Current Visit: No Status: Chronic Qualifiers: Esophagitis presence: without esophagitis Qualified Code(s): K21.9 - Gastro -esophageal reflux disease without esophagitis (5) HTN (hypertension) Current Visit: No Status: Chronic Qualifiers: Hypertension type: essential hypertension Qualified Code(s): I10 - Essential (primary) hypertension (6) Depression Current Visit: No Status: Suspected Qualifiers: Depression Type: unspecified Qualified Code(s): F32.9 - Major depressive disorder, single episode, unspecified Cleared for Admission [facility] - Detox or Rehab [facility] Level of Care: Medically Managed Detox Regimen/Protocol: Librium Breathalyzer - Breathalyzer Breathalyzer: 0.183 Urine Drug Screen - Test Device Lot number: [id number] Expiration date: 11/04/20 - Control Is test valid?: Yes - Results Drug screen NEGATIVE: Yes Urine drug screen results: BZO-Benzodiazepines Inpatient Rehab Admission - Rehab Decision to Admit Inpatient rehab admission?: No
[2019-02-18] MEDS ORDERED: MAGNESIUM HYDROX 2400MG/30ML ORAL SUSPENSION 30 ML CUP PO PRN (00:41)
[2019-02-18] MEDS ORDERED: MENTHOL/PHENOL 1 EACH UD MM PRN (00:41)
[2019-02-18] MEDS ORDERED: IBUPROFEN 400 MG TABLET (FP) PO PRN (00:41)
[2019-02-18] MEDS ORDERED: MELATONIN 5 MG TABLETS PO PRN (00:41)
[2019-02-18] MEDS ORDERED: hydrOXYzine PAMOATE 25 MG CAPSULE (FP) PO PRN (00:41)
[2019-02-18] MEDS ORDERED: NICOTINE POLACRILEX 2 MG GUM BUC PRN (00:41)
[2019-02-18] MEDS ORDERED: MAGNESIUM CITRATE 300 ML BOTTLE PO PRN (00:41)
[2019-02-18] MEDS ORDERED: METHOCARBAMOL 500 MG TABLET PO PRN (00:41)
[2019-02-18] MEDS ORDERED: chlordiazePOXIDE HCL 25 MG CAPSULE PO PRN (00:41)
[2019-02-18] MEDS ORDERED: ACETAMINOPHEN 325 MG TABLET (FP) PO PRN ×2 (00:41)
[2019-02-18] MEDS ORDERED: chlordiazePOXIDE HCL 25 MG CAPSULE PO ONE (01:10)
[2019-02-18] MEDS ORDERED: chlordiazePOXIDE HCL 10 MG CAPSULE PO PRN (01:10)
[2019-02-18] MEDS: chlordiazePOXIDE HCL 25 MG CAPSULE PO SCH ×3 (05:50→21:25)
[2019-02-18] MEDS ORDERED: ONDANSETRON *ODT* 4 MG TABLET SL PRN (09:32)
--- NOTE | 2019-02-18 10:00 | PN ---
[facility] CIWA - CIWA Score Nausea/Vomitin Muscle Tremors: 2 Anxiety: 2 Agitation: 2 Paroxysmal Sweats: No Perspiration Orientation: 0-Oriented Tacttile Disturbances: 1-Very Mild Itch/Numbness Auditory Disturbances: 0-None Visual Disturbances: 0-None Headache: 2-Mild CIWA-Ar Total Score: 12 [facility] Progress Note (SOAP) Subjective: alert,,irritable,anxious,interrupted sleep,tremor,nausea,vomiting Objective: 02/18/19 10:02 Vital Signs Temperature 99.1 F 02/18/19 09:41 Pulse Rate 118 H 02/18/19 09:41 Respiratory Rate 20 02/18/19 09:41 Blood Pressure 155/86 02/18/19 09:41 O2 Sat by Pulse Oximetry (%) 02/18/19 10:03 labs pending Assessment: 02/18/19 10:03 withdrawal symptom Plan: continue detox librium regimen
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
[2019-02-18] MEDS: PRENATAL VITAMINS W/ FOLIC ACID TABLET (FP) PO SCH (11:06)
[2019-02-18] MEDS: ESCITALOPRAM OXALATE 10 MG TABLET (FP) PO SCH (11:07)
[2019-02-18] MEDS: NICOTINE 14 MG/24 HOURS TOPICAL PATCH TD SCH (11:09)
[2019-02-18] MEDS: THIAMINE HCL 100 MG TABLET (FP) PO SCH (21:25)
[2019-02-18] MEDS ORDERED: chlordiazePOXIDE HCL 25 MG CAPSULE PO SCH (23:00)
[2019-02-19] MEDS: MAG HYDROX/AL HYDROX/SIMETH 30 ML UNIT-DOSE CUP PO PRN ×2 (01:15→09:59)
[2019-02-19] MEDS: chlordiazePOXIDE 5 MG CAPSULE PO SCH ×3 (05:29→22:05)
--- NOTE | 2019-02-19 08:54 | PN ---
[facility] Progress Note Note: Patient complains of experiencing difficulty to sleep despite taking Melatonin. Hypnotic prpperties of [place] discussed with patient and he agreed to try it
[2019-02-19] MEDS: ESCITALOPRAM OXALATE 10 MG TABLET (FP) PO SCH (09:56)
[2019-02-19] MEDS: PRENATAL VITAMINS W/ FOLIC ACID TABLET (FP) PO SCH (09:56)
[2019-02-19] MEDS: NICOTINE 14 MG/24 HOURS TOPICAL PATCH TD SCH (09:57)
[2019-02-19 10:31] LABS: ALBUMIN 2.8 g/dl (3.4-5.0); BILIRUBIN,TOTAL 6.6 mg/dL (0.2-1); BLOOD UREA NITROGEN 3.6 mg/dL (7-18); CALCIUM 8.1 mg/dL (8.5-10.1); CREATININE 0.5 mg/dL (0.55-1.3); POTASSIUM 3.2 mmol/L (3.5-5.1); TOT PROT 6.2 g/dl (6.4-8.2)
[2019-02-19 10:40] LABS: HEMATOCRIT 35.1 % (35.4-49); HEMOGLOBIN 12.2 GM/dL (11.7-16.9); MCH 32.4 pg (25.7-33.7); MCHC 34.7 g/dl (32.0-35.9); MEAN CELL VOLUME 93.5 fl (80-96); MEAN PLT VOLUME 8.6 fl (7.5-11.1); RBC 3.75 M/mm3 (4.00-5.60); RDW 14.3 % (11.9-15.9); WHITE BLOOD COUNT 3.9 K/mm3 (4.0-10.0)
--- NOTE | 2019-02-19 11:24 | PN ---
S Progress Note (SOAP) Subjective: fever(101.7), pancytopenia, cirrhosis, Objective: 02/19/19 11:19 Vital Signs Temperature 101.5 F H 02/19/19 09:22 Pulse Rate 123 H 02/19/19 09:22 Respiratory Rate 18 02/19/19 09:22 Blood Pressure 140/95 02/19/19 09:22 O2 Sat by Pulse Oximetry (%) Laboratory Tests 02/19/19 02/19/19 02/19/19 07:00 07:00 07:00 WBC 3.9 L RBC 3.75 L Hgb 12.2 Hct 35.1 L MCV 93.5 MCH 32.4 MCHC 34.7 RDW 14.3 Plt Count 25 L* MPV 8.6 Sodium 137 Potassium 3.2 L Chloride 103 Carbon Dioxide 26 Anion Gap 9 BUN 3.6 L Creatinine 0.5 L Est GFR (CKD-EPI)AfAm 167.36 Est GFR (CKD-EPI)NonAf 144.40 Random Glucose 155 H Calcium 8.1 L Total Bilirubin 6.6 H AST 160 H ALT 51 Alkaline Phosphatase 215 H Total Protein 6.2 L Albumin 2.8 L RPR Titer Nonreactive obese m.pt aox3 in nad ambulating well . skin -anicteric eye-clear eom intac oral -clear , moist , neck soft , supple, from lungs-clear to a/p cor tachycardia , w/o m abd - obese , soft , nontender , bs+ ext - no c/c/edema neuro - aox3 Assessment: 02/19/19 11:24 cirrhotic pt with fever ,tachycardia , pancytopenia , hypokalemia , needs further evaluiation in ED Plan: ED evaluation, [facility] transfer to ED pt signed out to ED attending DR. Bell
[2019-02-19 11:37] LABS: PLATELET COUNT 25 K/MM3 (134-434)
--- NOTE | 2019-02-19 20:54 | PN ---
[facility] Progress Note Note: Returned from [facility] ED after evaluation of fevers. ED visit reviewed w/ no significant cause determined. Labs in ED reviewed. ( K= 3.4 Plts: = 35) A&O. Sclera : slight icterus noted. Lungs: CTA Abd S/NT/BS+ Vital Signs 02/19/19 02/19/19 13:15 19:39 Temperature 100.9 F H 98.6 F Pulse Rate 128 H 109 H Respiratory 18 20 Rate Blood Pressure 161/81 153/78 CMP Sodium 137 mmol/L (136-145) 02/19/19 07:00 Potassium 3.2 mmol/L (3.5-5.1) L 02/19/19 07:00 Chloride 103 mmol/L (98-107) 02/19/19 07:00 Carbon Dioxide 26 mmol/L (21-32) 02/19/19 07:00 Anion Gap 9 MMOL/L (8-16) 02/19/19 07:00 BUN 3.6 mg/dL (7-18) L 02/19/19 07:00 Creatinine 0.5 mg/dL (0.55-1.3) L 02/19/19 07:00 Est GFR (CKD-EPI)AfAm 167.36 02/19/19 07:00 Est GFR (CKD-EPI)NonAf 144.40 02/19/19 07:00 Random Glucose 155 mg/dL (74-106) H 02/19/19 07:00 Calcium 8.1 mg/dL (8.5-10.1) L 02/19/19 07:00 Total Bilirubin 6.6 mg/dL (0.2-1) H 02/19/19 07:00 AST 160 U/L (15-37) H 02/19/19 07:00 ALT 51 U/L (13-61) 02/19/19 07:00 Alkaline Phosphatase 215 U/L (45-117) H 02/19/19 07:00 Total Protein 6.2 g/dl (6.4-8.2) L 02/19/19 07:00 Albumin 2.8 g/dl (3.4-5.0) L 02/19/19 07:00 CBC WBC 3.9 K/mm3 (4.0-10.0) L 02/19/19 07:00 RBC 3.75 M/mm3 (4.00-5.60) L 02/19/19 07:00 Hgb 12.2 GM/dL (11.7-16.9) 02/19/19 07:00 Hct 35.1 % (35.4-49) L 02/19/19 07:00 MCV 93.5 fl (80-96) 02/19/19 07:00 MCH 32.4 pg (25.7-33.7) 02/19/19 07:00 MCHC 34.7 g/dl (32.0-35.9) 02/19/19 07:00 RDW 14.3 % (11.9-15.9) 02/19/19 07:00 Plt Count 25 K/MM3 (134-434) L* 02/19/19 07:00 MPV 8.6 fl (7.5-11.1) 02/19/19 07:00 Plan: Reviewed findings and significance of yellowish sclera w/ patient. Continue detox. Acetaminophen as needed for elevated temp. Potassium 20 meq PO daily x 2 days, then repeat K level D/C ibuprofen.
[2019-02-19] MEDS ORDERED: ACETAMINOPHEN 325 MG TABLET (FP) PO PRN (20:56)
[2019-02-19] MEDS: THIAMINE HCL 100 MG TABLET (FP) PO SCH (22:05)
[2019-02-19] MEDS: POTASSIUM CHLORIDE TABS 20 MEQ TABLET.ER (FP) PO SCH (22:06)
[2019-02-19] MEDS: SUVOREXANT 15 MG TABLET PO PRN (22:06)
[2019-02-20] MEDS ORDERED: chlordiazePOXIDE HCL 10 MG CAPSULE PO PRN
[2019-02-20] MEDS ORDERED: chlordiazePOXIDE HCL 25 MG CAPSULE PO SCH (05:00)
[2019-02-20] MEDS: chlordiazePOXIDE HCL 10 MG CAPSULE PO SCH ×3 (05:07→22:01)
[2019-02-20] MEDS: MAG HYDROX/AL HYDROX/SIMETH 30 ML UNIT-DOSE CUP PO PRN (05:08)
[2019-02-20] MEDS: PRENATAL VITAMINS W/ FOLIC ACID TABLET (FP) PO SCH (10:10)
[2019-02-20] MEDS: POTASSIUM CHLORIDE TABS 20 MEQ TABLET.ER (FP) PO SCH (10:10)
[2019-02-20] MEDS: NICOTINE 14 MG/24 HOURS TOPICAL PATCH TD SCH (10:10)
[2019-02-20] MEDS: ESCITALOPRAM OXALATE 10 MG TABLET (FP) PO SCH (10:10)
[2019-02-20 10:20] LABS: PH,URINE 6.5 (5.0-8.0); URINE APPEARANCE CLEAR; URINE BILIRUBIN NEGATIVE (NEGATIVE); URINE COLOR YELLOW; URINE GLUCOSE (UA) NEGATIVE (NEGATIVE); URINE KETONE NEGATIVE (NEGATIVE); URINE LEUK ESTERASE NEGATIVE (NEGATIVE); URINE NITRITE NEGATIVE (NEGATIVE); URINE PROTEIN NEGATIVE (NEGATIVE)
--- NOTE | 2019-02-20 12:41 | PN ---
S CIWA - CIWA Score Nausea/Vomitin-No Nausea/No Vomiting Muscle Tremors: None Anxiety: 1-Mildly Anxious Agitation: 2 Paroxysmal Sweats: 1-Minimal Palms Moist Orientation: 0-Oriented Tacttile Disturbances: 0-None Auditory Disturbances: 0-None Visual Disturbances: 2-Mild Sensitivity Headache: 0-None Present CIWA-Ar Total Score: 6 BHS Progress Note (SOAP) Subjective: Patient Reports that current Withdrawal symptoms are mild at this time. Objective: PATIENT A & O X 3, OBSERVED AMBULATING ON DETOX UNIT UNASSISTED. IN NO ACUTE DISTRESS. PATIENT AFEBRILE. 02/20/19 12:36 Vital Signs Temperature 97.6 F 02/20/19 10:00 Pulse Rate 81 02/20/19 10:00 Respiratory Rate 18 02/20/19 10:00 Blood Pressure 110/64 02/20/19 10:00 O2 Sat by Pulse Oximetry (%) Laboratory Tests 02/19/19 02/19/19 02/19/19 07:00 07:00 07:00 WBC 3.9 L RBC 3.75 L Hgb 12.2 Hct 35.1 L MCV 93.5 MCH 32.4 MCHC 34.7 RDW 14.3 Plt Count 25 L* MPV 8.6 Sodium 137 Potassium 3.2 L Chloride 103 Carbon Dioxide 26 Anion Gap 9 BUN 3.6 L Creatinine 0.5 L Est GFR (CKD-EPI)AfAm 167.36 Est GFR (CKD-EPI)NonAf 144.40 Random Glucose 155 H Calcium 8.1 L Total Bilirubin 6.6 H AST 160 H ALT 51 Alkaline Phosphatase 215 H Total Protein 6.2 L Albumin 2.8 L Urine Color Urine Appearance Urine pH Ur Specific [place] Urine Protein Urine Glucose (UA) Urine Ketones Urine Blood Urine Nitrite Urine Bilirubin Urine Urobilinogen Ur Leukocyte Esterase RPR Titer Nonreactive 02/20/19 07:55 WBC RBC Hgb Hct MCV MCH MCHC RDW Plt Count MPV Sodium Potassium Chloride Carbon Dioxide Anion Gap BUN Creatinine Est GFR (CKD-EPI)AfAm Est GFR (CKD-EPI)NonAf Random Glucose Calcium Total Bilirubin AST ALT Alkaline Phosphatase Total Protein Albumin Urine Color Yellow Urine Appearance Clear Urine pH 6.5 Ur Specific [place] 1.005 L Urine Protein Negative Urine Glucose (UA) Negative Urine Ketones Negative Urine Blood Negative Urine Nitrite Negative Urine Bilirubin Negative Urine Urobilinogen 1.0 Ur Leukocyte Esterase Negative RPR Titer LABS NOTED. 02/20/19 12:38 Assessment: 02/20/19 12:37 WITHDRAWAL SYMPTOMS. HYPERBILIRUBINEMIA. HYPOKALEMIA. HYPERGLYCEMIA (PATIENT DENIES KNOWN HISTORY OF DM). ELEVATED AST LEVEL. ELEVATED ALK. PHOS. LEVEL. THROMBOCYTOPENIA. 02/20/19 12:37 Plan: CONTINUE DETOX. INCREASE DAILY PO WATER INTAKE. CONTINUE K-DUR. REPEAT K LEVLEL TO BE CHECKED AGAIN TOMORROW AM. PATIENT ADVISED TO FOLLOW-UP WITH [facility] AFTER DISCHARGE FROM DETOX FOR GENERAL MEDICAL ASSESSMENT AND FOR ELEVATED LIVER ENZYMES, ELEVATED BILIRUBIN LEVEL, FOR ELEVATED RANDOM GLUCOSE LEVEL, AND FOR LOW PLATELET LEVEL NOTED ON DETOX ADMISSION LABORATORY ASSESSMENT. PATIENT VERBALIZED UNDERSTANDING OF RECOMMENDATION. COPIES OF RESULTS OF ALL LABS DRAWN WHILE ADMITTED FOR DETOX GIVEN TO PATIENT AT TIME OF DISCHARGE FROM DETOX UNIT. PATIENT SCHEDULED FOR D/C TOMORROW, PENDING PRE-DISCHARGE MEDICAL EVALUATION TOMORROW AM.
[2019-02-20] MEDS: THIAMINE HCL 100 MG TABLET (FP) PO SCH (22:01)
[2019-02-20] MEDS: SUVOREXANT 15 MG TABLET PO PRN (22:04)
[2019-02-21] MEDS ORDERED: chlordiazePOXIDE HCL 10 MG CAPSULE PO PRN
[2019-02-21] MEDS ORDERED: chlordiazePOXIDE HCL 10 MG CAPSULE PO SCH (05:00)
[2019-02-21] MEDS ORDERED: chlordiazePOXIDE HCL 10 MG CAPSULE PO ONE (05:00)
[2019-02-21] MEDS: BISMUTH SUBSALICYLATE 524 MG/30 ML UD PO PRN ×3 (05:15→22:12)
[2019-02-21] MEDS: PRENATAL VITAMINS W/ FOLIC ACID TABLET (FP) PO SCH (10:21)
[2019-02-21] MEDS: POTASSIUM CHLORIDE TABS 20 MEQ TABLET.ER (FP) PO SCH (10:21)
[2019-02-21] MEDS: NICOTINE 14 MG/24 HOURS TOPICAL PATCH TD SCH (10:21)
[2019-02-21] MEDS: ESCITALOPRAM OXALATE 10 MG TABLET (FP) PO SCH (10:21)
[2019-02-21 11:17] LABS: ALBUMIN 2.6 g/dl (3.4-5.0); BILIRUBIN,TOTAL 4.6 mg/dL (0.2-1); BLOOD UREA NITROGEN 5.4 mg/dL (7-18); CALCIUM 7.6 mg/dL (8.5-10.1); CREATININE 0.4 mg/dL (0.55-1.3); POTASSIUM 3.5 mmol/L (3.5-5.1); TOT PROT 5.9 g/dl (6.4-8.2)
--- NOTE | 2019-02-21 11:53 | PN ---
S CIWA - CIWA Score Nausea/Vomitin-No Nausea/No Vomiting Muscle Tremors: None Anxiety: 3 Agitation: 2 Paroxysmal Sweats: No Perspiration Orientation: 0-Oriented Tacttile Disturbances: 0-None Auditory Disturbances: 0-None Visual Disturbances: 0-None Headache: 0-None Present CIWA-Ar Total Score: 5 BHS Progress Note (SOAP) Subjective: Feels ok; patient is anxious Objective: 02/21/19 11:40 Last Vital Signs Temp Pulse Resp BP Pulse Ox 99.1 F 114 H 20 140/77 02/21/19 10:43 02/21/19 10:43 02/21/19 10:43 02/21/19 10:43 Tachycardia and elevated b/p noted Laboratory Tests 02/19/19 02/19/19 02/19/19 07:00 07:00 07:00 WBC 3.9 L RBC 3.75 L Hgb 12.2 Hct 35.1 L MCV 93.5 MCH 32.4 MCHC 34.7 RDW 14.3 Plt Count 25 L* MPV 8.6 Sodium 137 Potassium 3.2 L Chloride 103 Carbon Dioxide 26 Anion Gap 9 BUN 3.6 L Creatinine 0.5 L Est GFR (CKD-EPI)AfAm 167.36 Est GFR (CKD-EPI)NonAf 144.40 Random Glucose 155 H Calcium 8.1 L Total Bilirubin 6.6 H AST 160 H ALT 51 Alkaline Phosphatase 215 H Total Protein 6.2 L Albumin 2.8 L Urine Color Urine Appearance Urine pH Ur Specific [place] Urine Protein Urine Glucose (UA) Urine Ketones Urine Blood Urine Nitrite Urine Bilirubin Urine Urobilinogen Ur Leukocyte Esterase RPR Titer Nonreactive 02/20/19 02/21/19 07:55 07:40 WBC RBC Hgb Hct MCV MCH MCHC RDW Plt Count MPV Sodium 138 Potassium 3.5 Chloride 107 Carbon Dioxide 26 Anion Gap 5 L BUN 5.4 L Creatinine 0.4 L Est GFR (CKD-EPI)AfAm 183.43 Est GFR (CKD-EPI)NonAf 158.27 Random Glucose 110 H Calcium 7.6 L Total Bilirubin 4.6 H D AST 76 H ALT 40 Alkaline Phosphatase 194 H Total Protein 5.9 L Albumin 2.6 L Urine Color Yellow Urine Appearance Clear Urine pH 6.5 Ur Specific [place] 1.005 L Urine Protein Negative Urine Glucose (UA) Negative Urine Ketones Negative Urine Blood Negative Urine Nitrite Negative Urine Bilirubin Negative Urine Urobilinogen 1.0 Ur Leukocyte Esterase Negative RPR Titer Labs reviewed: plt 25, Ca 7.6, LFTs elevated Assessment: 02/21/19 11:42 Withdrawal sxs Noted with tachycardia, elevated b/p, thrombocytopenia, hypocalcemia and elevated LFTs Plan: Continue detox Encouraged PO water intake Consider discharge patient tomorrow if VSS and no bruising/bleeding. Encourage patient to see his PCP/GI Specialists [facility] within 3 days. Tachycardia: could be r/t withdrawal and anxiety, encouraged relaxation techniques such as deep breathing exercises, monitor pulse Elevated b/p: denies HTN, could be r/t withdrawal, start clonidine 0.1mg PO q 8hr prn if b/p > 140/90 Thrombocytopenia: has h/o thrombocytopenia most likely due to chronic alcoholism , also has cirrhosis of liver and esophageal varices: monitor for bruising/ bleeding, follow up with PCP/GI Specialist within 3 days [facility] post discharge for management Hypocalcemia: asymptomatic, start calcium carbonate 650mg PO bid Elevated LFTs: most likely due to chronic alcoholism and liver disease, follow up with PCP for management
[2019-02-21] MEDS ORDERED: cloNIDine HCL 0.1 MG TABLET PO PRN (11:55)
[2019-02-21] MEDS: CALCIUM CARBONATE 650 MG TABLET PO SCH ×2 (13:00→23:13)
[2019-02-21] MEDS: SUVOREXANT 15 MG TABLET PO PRN (22:13)
[2019-02-21] MEDS: THIAMINE HCL 100 MG TABLET (FP) PO SCH (22:14)
[2019-02-22] MEDS ORDERED: chlordiazePOXIDE HCL 10 MG CAPSULE PO SCH (05:00)
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
[2019-02-22] MEDS: NICOTINE 14 MG/24 HOURS TOPICAL PATCH TD SCH (10:48)
[2019-02-22] MEDS: PRENATAL VITAMINS W/ FOLIC ACID TABLET (FP) PO SCH (10:48)
[2019-02-22] MEDS: ESCITALOPRAM OXALATE 10 MG TABLET (FP) PO SCH (10:48)
[2019-02-22] MEDS: CALCIUM CARBONATE 650 MG TABLET PO SCH ×2 (10:48→22:11)
[2019-02-22] MEDS: THIAMINE HCL 100 MG TABLET (FP) PO SCH (22:11)
[2019-02-22] MEDS: SUVOREXANT 15 MG TABLET PO PRN (22:12)
[2019-02-23] MEDS ORDERED: chlordiazePOXIDE HCL 10 MG CAPSULE PO ONE (05:00)
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
[2019-02-23] MEDS: CALCIUM CARBONATE 650 MG TABLET PO SCH (09:05)
[2019-02-23] MEDS: PRENATAL VITAMINS W/ FOLIC ACID TABLET (FP) PO SCH (09:05)
[2019-02-23] MEDS: NICOTINE 14 MG/24 HOURS TOPICAL PATCH TD SCH (09:08)
[2019-02-23] MEDS: ESCITALOPRAM OXALATE 10 MG TABLET (FP) PO SCH (09:08)
[2019-02-23 10:12] VITALS: BP 137/64; PULSE 84; TEMP 98.4
== END 2019-02-23 10:55 | disposition home or self-care (01) | DRG 775 ==
LOC: YASAS 23:15 → Y6N 02-18 01:12 → UNDODISIN 02-22 15:20
PROVIDERS: ADMIT Allergy & Immunology; ATTEND Allergy & Immunology
PROC: HZ2ZZZZ Detoxification Services for Substance Abuse Treatment (ICD-10-PCS; principal; 2019-02-18)
DX: F10.230 Alcohol dependence with withdrawal, uncomplicated (principal); F17.210 Nicotine dependence, cigarettes, uncomplicated; F32.9 Major depressive disorder, single episode, unspecified; D69.6 Thrombocytopenia, unspecified; D61.818 Other pancytopenia; D50.9 Iron deficiency anemia, unspecified; E83.51 Hypocalcemia; E87.6 Hypokalemia; E80.6 Other disorders of bilirubin metabolism; R50.9 Fever, unspecified; G47.00 Insomnia, unspecified; R94.5 Abnormal results of liver function studies; I10 Essential (primary) hypertension; K70.10 Alcoholic hepatitis without ascites; K21.9 Gastro-esophageal reflux disease without esophagitis; K70.31 Alcoholic cirrhosis of liver with ascites; K29.20 Alcoholic gastritis without bleeding; Z87.19 Personal history of other diseases of the digestive system; E66.01 Morbid (severe) obesity due to excess calories; Z68.42 Body mass index [BMI] 45.0-49.9, adult; I83.93 Asymptomatic varicose veins of bilateral lower extremities; R94.31 Abnormal electrocardiogram [ECG] [EKG]
CPT/HCPCS: 36415; 80053; 81003; 85027; 86593; J0735; Q0162

== ENCOUNTER 2019-02-19 14:27 | Emergency (ER) | payer OTHER ==
[2019-02-19 14:42] VITALS: BMI 39.3
--- NOTE | 2019-02-19 15:18 | PDOC ---
History of Present Illness - General Chief Complaint: Cold Symptoms Stated Complaint: FEVER Time Seen by Provider: 02/19/19 15:17 - History of Present Illness Initial Comments: 02/19/19 16:08 29 yo M PMH HTN, alcohol use, depression, early cirrhosis, p/w fevers. Patient currently undergoing detox at [facility], was found to have temperature to 101F. Patient complains of feeling feverish and of not sleeping for two days, but has no further complaints. Patient reports that last time he underwent detox in August, he did not sleep for five days and developed auditory and visual hallucinations, however, has never had a seizure. Specifically denies CP, SOB, constipation/diarrhea, DOVE, N/V, abd pain. Endorses fevers/chills and insomnia. Past History - Past Medical History Allergies/Adverse Reactions: Allergies Allergy/AdvReac Type Severity Reaction Status Date / Time No Known Allergies Allergy Verified 02/17/19 23:24 Home Medications: Ambulatory Orders Escitalopram Oxalate [Lexapro -] 10 mg PO DAILY 10/31/18 Anemia: No Asthma: No Cancer: No Cardiac Disorders: No CVA: No COPD: No CHF: No DVT: No Dementia: No Diabetes: No GI Disorders: Yes (GERD) Disorders: No HTN: Yes (Not on medication) Hypercholesterolemia: No Kidney Stones: No Liver Disease: Yes (Cirrhosis, varices) Seizures: No Thyroid Disease: No Lung CA: No - Surgical History Abdominal Surgery: Yes (banding of esophageal varices) Appendectomy: No Cardiac Surgery: No Cholecystectomy: No Gastric Stapling: No Lung Surgery: No Neurologic Surgery: No Orthopedic Surgery: No - Reproductive History Testicular Surgery: No - Immunization History Immunization Up to Date: No - Psycho Social/Smoking Cessation Hx Smoking Status: No Smoking History: Former smoker Have you smoked in the past 12 months: No Number of Cigarettes Smoked Daily: 10 Cigars Per Day: 0 Information on smoking cessation initiated: No 'Breaking Loose' booklet given: 02/18/19 Hx Alcohol Use: Yes Drug/Substance Use Hx: No Substance Use Type: Alcohol Hx Substance Use Treatment: Yes ([facility]) Review of Systems - Review of Systems Comments:: 02/19/19 16:10 GENERAL/CONSTITUTIONAL: Fevers/chills. No weakness. HEAD, EYES, EARS, NOSE AND THROAT: No change in vision. No ear pain or discharge. No sore throat. CARDIOVASCULAR: No chest pain or shortness of breath. RESPIRATORY: No cough, wheezing, or hemoptysis. GASTROINTESTINAL: No nausea, vomiting, diarrhea or constipation. GENITOURINARY: No dysuria, frequency, or change in urination. MUSCULOSKELETAL: No joint or muscle swelling or pain. No neck or back pain. SKIN: No rash NEUROLOGIC: No headache, vertigo, loss of consciousness, or change in strength/ sensation. ENDOCRINE: No increased thirst. No abnormal weight change. HEMATOLOGIC/LYMPHATIC: No anemia, easy bleeding, or history of blood clots. ALLERGIC/IMMUNOLOGIC: No hives or skin allergy *Physical Exam - Vital Signs Last Vital Signs Temp Pulse Resp BP Pulse Ox 99.2 F 115 H 17 149/58 L 99 02/19/19 14:40 02/19/19 14:40 02/19/19 14:40 02/19/19 14:40 02/19/19 14:40 - Physical Exam Comments: 02/19/19 16:15 Gen: well-developed, well-nourished, NAD, obese Neuro: AAOX4, CN II-XII intact, FTN intact, EOMI, PERRLA, 5/5 strength, SILT HEENT: atraumatic, normocephalic, dry mucous membranes, anicteric Neck: trachea midline, supple CV: tachycardic, regular rhythm, no murmurs, rubs, or gallops Pulm: CTA b/l, no wheezing Abd: soft, non-distended, non-tender MSK: full ROM, intact pulses Extr: no edema, no deformities Skin: warm, dry, no jaundice ED Treatment Course - LABORATORY CBC & Chemistry Diagram: 02/19/19 15:27 02/19/19 15:27 Medical Decision Making - Medical Decision Making 02/19/19 16:06 Concern for possible infection vs withdrawal. - sepsis order set - CBC, CMP - EKG - blood cultures - UA/UC - reassess - Ofirmev - 1L NS - Librium 50 PO 02/19/19 16:18 EKG sinus tachycardia at 107 bpm, QTc at 552 02/19/19 16:19 Platelets 35, consistent with prior 02/19/19 16:31 AST 156, ALT 55, K 3.4, Na 135. Will replete K, AST/ALT pattern consistent with alcohol use. Elevated alk phos. 02/19/19 16:43 CXR with no acute pathology. 02/19/19 16:44 UA without signs of UTI. Discharge - Discharge Information Problems reviewed: Yes Clinical Impression/Diagnosis: Fever - Follow up/Referral - Patient Discharge Instructions Additional Instructions: You were seen with fevers. Your labs and imaging were unconcerning. This may have been due to your ongoing alcohol detox. Please take ibuprofen/ acetaminophen as needed. Follow up with your primary care doctor within one week. Return to the ED if you develop worsening symptoms. - Post Discharge Activity
--- NOTE | 2019-02-19 15:29 | PDOC ---
Attending Attestation - Resident Resident Name: Samantha Sinclair - ED Attending Attestation I have performed the following: I have examined & evaluated the patient, The case was reviewed & discussed with the resident, I agree w/resident's findings & plan, Exceptions are as noted - HPI HPI: 02/19/19 16:31 29 years old past medical history significant for hypertension alcohol abuse depression early cirrhosis presents from [facility] with documented fever of 101 Fahrenheit. Patient endorses not sleeping well but denies any runny nose cough sore throat chest pain shortness of breath nausea vomiting diarrhea rashes bumps bruises or other potential sources of infection no headache or neck stiffness - Physicial Exam PE: 02/19/19 16:31 Vitals: Triage Vital signs reviewed General Appearance: No acute distress, well nourished well developed, Head: Atraumatic, Throat: Posterior oropharynx without erythema, mucous membranes moist, Neck: Supple; no Nucal rigidity Chest Wall: Nontender Cardiac: Regular rate and rhythym, no murmurs, no rubs, no gallops, Lungs: Clear to auscultation bilateral, good air movement bilaterally, Abdomen: Soft, non distended, normal bowel sounds, non tender to palpation Extremities: Full range of motion to all extremities, no cyanosis, clubbing, or edema Skin: Warm and dry, no rashes or lesions, no rash, no petechiae Neuro: AOX3; cranial Nerves 2-12 grossly intact, strength intact to all extremities, sensation intact to all extremities, gait normal Psych: Normal mood, normal affect - Medical Decision Making 02/19/19 16:32 29 years old presents from [facility] with fever of unknown origin. Fever work- up initiated Labs chest x-ray urine flu strep pending well-appearing no apparent distress IV fluids and Tylenol ordered as well as [address] Wood to follow up labs and reasses
[2019-02-19 15:59] LABS: BASO % 0.9 % (0-2.0); EOS % 1.6 % (0-4.5); HEMATOCRIT 37.7 % (35.4-49); HEMOGLOBIN 13.1 GM/dL (11.7-16.9); LYMPH % 22.3 % (8-40); MCH 32.7 pg (25.7-33.7); MCHC 34.8 g/dl (32.0-35.9); MONO % 9.6 % (3.8-10.2); NEUT % 65.6 % (42.8-82.8); PLATELET COUNT 35 K/MM3 (134-434); RBC 4.01 M/mm3 (4.00-5.60); RDW 14.8 % (11.9-15.9); WHITE BLOOD COUNT 5.6 K/mm3 (4.0-10.0)
[2019-02-19 16:10] LABS: VENOUS PC02 39.5 mmHg (38-52); VENOUS PH 7.44 (7.31-7.41)
[2019-02-19] MEDS ORDERED: SODIUM CHLORIDE 0.9% 500 ML INFUS.BAG IV ONE (16:12)
[2019-02-19] MEDS ORDERED: chlordiazePOXIDE HCL 25 MG CAPSULE PO ONE (16:12)
[2019-02-19] MEDS ORDERED: ACETAMINOPHEN 1000 MG/100 ML VIAL (NON FORMULARY) IVPB ONE (16:12)
[2019-02-19] MEDS ORDERED: ACETAMINOPHEN INJECTION 100 ML IVPB ONE (16:13)
[2019-02-19] MEDS ORDERED: chlordiazePOXIDE HCL 25 MG CAPSULE ONE (16:23)
[2019-02-19 16:24] LABS: VENOUS PO2 < 49 mmHg (28-48)
[2019-02-19 16:26] LABS: BILIRUBIN,TOTAL 8.3 mg/dL (0.2-1); BLOOD UREA NITROGEN 5.5 mg/dL (7-18); CALCIUM 8.6 mg/dL (8.5-10.1); CREATININE 0.6 mg/dL (0.55-1.3); POTASSIUM 3.4 mmol/L (3.5-5.1); TOT PROT 6.8 g/dl (6.4-8.2)
[2019-02-19] MEDS ORDERED: POTASSIUM CHLORIDE TABS 20 MEQ TABLET.ER (FP) PO ONE ×2 (16:31→17:05)
[2019-02-19 16:34] LABS: PH,URINE 5.5 (5.0-8.0); URINE APPEARANCE CLEAR; URINE BILIRUBIN NEGATIVE (NEGATIVE); URINE COLOR YELLOW; URINE GLUCOSE (UA) NEGATIVE (NEGATIVE); URINE KETONE NEGATIVE (NEGATIVE); URINE LEUK ESTERASE NEGATIVE (NEGATIVE); URINE NITRITE NEGATIVE (NEGATIVE); URINE PROTEIN NEGATIVE (NEGATIVE); URINE UROBILINOGEN 0.2 mg/dL (0.2-1.0)
[2019-02-19 16:53] VITALS: BP 140/69; PULSE 96; TEMP 99
[2019-02-19 20:22] LABS: URINE RBC 0-2 /hpf (0-4)
[2019-02-19 20:23] LABS: EPI CELLS 0-2 /HPF (0-5/HPF); HYALINE CASTS 0 /lpf (0-8); URINE BACTERIA FEW /hpf (NEGATIVE); URINE WBC 0-3 /hpf (0-5)
--- NOTE | 2019-02-21 20:21 | EKG ---
Test Reason : Blood Pressure : / mmHG Vent. Rate : 107 BPM Atrial Rate : 107 BPM P-R Int : 114 ms QRS Dur : 082 ms QT Int : 414 ms P-R-T Axes : 043 013 023 degrees QTc Int : 552 ms SINUS TACHYCARDIA POSSIBLE LEFT ATRIAL ENLARGEMENT PROLONGED QT ABNORMAL ECG WHEN COMPARED WITH ECG OF 18-JUN-2018 18:46, NO SIGNIFICANT CHANGE WAS FOUND Confirmed by EUGENIO GEIGER MD ([id number]) on 02/21/2019 8:21:07 PM Referred By: Confirmed By:EUGENIO GEIGER MD
== END 2019-02-19 19:06 | disposition home or self-care (01) ==
LOC: JER 14:27
PROC: 3E033NZ Introduction of Analgesics, Hypnotics, Sedatives into Peripheral Vein, Percutaneous Approach (ICD-10-PCS; principal; 2019-02-19)
DX: R50.9 Fever, unspecified (principal); I10 Essential (primary) hypertension; F32.9 Major depressive disorder, single episode, unspecified; K74.69 Other cirrhosis of liver; F10.99 Alcohol use, unspecified with unspecified alcohol-induced disorder
CPT/HCPCS: 36415; 71045-TC-FY; 80053; 81003; 82803; 83605; 84484; 85025; 87040; 87070; 87086; 87804; 87880; 93005; 93010; 96374; 99283-25; J0131

== ENCOUNTER 2019-05-27 19:22 | Inpatient (IN) | payer OTHER ==
--- NOTE | 2019-05-27 19:40 | BHS.RME ---
Physical/Psych/Mental Status - Physical Health Problems Is patient presently having any pain?: No CIWA Nausea/Vomitin-No Nausea/No Vomiting Muscle Tremors: None Anxiety: 0-No Anxiety, at Ease Agitation: 2 Paroxysmal Sweats: 2 Orientation: 1-Uncertain about Date Tacttile Disturbances: 0-None Auditory Disturbances: 2-Mild Harshness/Frighten Visual Disturbances: 2-Mild Sensitivity Headache: 0-None Present CIWA-Ar Total Score: 9
--- NOTE | 2019-05-27 19:42 | HP ---
CIWA Score Nausea/Vomitin-No Nausea/No Vomiting Muscle Tremors: 2 Anxiety: 0-No Anxiety, at Ease Agitation: 2 Paroxysmal Sweats: 2 Orientation: 1-Uncertain about Date Tacttile Disturbances: 0-None Auditory Disturbances: 2-Mild Harshness/Frighten Visual Disturbances: 2-Mild Sensitivity Headache: 0-None Present CIWA-Ar Total Score: 11 - Admission Criteria OASAS Guidelines: Admission for Medically Managed Detox: Requires at least one of the followin. CIWA greater than 12 2. Seizures within the past 24 hours 3. Delirium tremens within the past 24 hours 4. Hallucinations within the past 24 hours 5. Acute intervention needed for co occurring medical disorder 6. Acute intervention needed for co occurring psychiatric disorder 7. Severe withdrawal that cannot be handled at a lower level of care (continued vomiting, continued diarrhea, abnormal vital signs) requiring intravenous medication and/or fluids 8. Admitting History and Physical - Past Medical History Hepatobiliary: Yes: Cirrhosis ([place]), Other (Alcoholic hepatitis, esophageal varices s/p EVL (non-bleeding) 05/25) - Smoking History Smoking history: Former smoker Have you smoked in the past 12 months: No Aproximately how many cigarettes per day: 10 - Alcohol/Substance Use Hx Alcohol Use: Yes History of Substance Use: reports: None - Social History ADL: Independent History of Recent Travel: No Admission [facility] Allergies/Adverse Reactions: Allergies Allergy/AdvReac Type Severity Reaction Status Date / Time No Known Allergies Allergy Verified 05/27/19 19:54 History of Present Illness: pt here requesting detox from etoh use , reports 6 cans x 24 oz each relapsed 1 week ago , reports tremors if not drinking , denies seizures , blackouts , falls while intoxicated, denies driving , latest use this morning . pmhx : cirrhosis of the liver pshx : denies psych : denies meds : lactulose tobacco ; denies Exam Limitations: Intoxication - Review of Systems Constitutional: No Symptoms Reported EENT: reports: Other (contacts) Respiratory: reports: No Symptoms reported Cardiac: reports: No Symptoms Reported GI: reports: No Symptoms Reported : reports: No Symptoms Reported Musculoskeletal: reports: No Symptoms Reported Integumentary: reports: Pruritus (face) Neuro: reports: No Symptoms reported Endocrine: reports: No Symptoms Reported Psychiatric: reports: Agitated, Disorientated Patient History - Patient Medical History Hx Anemia: No Hx Asthma: No Hx Chronic Obstructive Pulmonary Disease (COPD): No Hx Cancer: No Hx Cardiac Disorders: No Hx Congestive Heart Failure: No Hx Hypertension: Yes (Not on medication) Hx Hypercholesterolemia: No Hx Pacemaker: No HX Cerebrovascular Accident: No Hx Seizures: No Hx Dementia: No Hx Diabetes: No Hx Gastrointestinal Disorders: Yes (GERD) Hx Liver Disease: Yes (Cirrhosis, varices) Hx Genitourinary Disorders: No Hx Sexually Transmitted Disorders: No Hx Renal Disease (ESRD): No Hx Thyroid Disease: No Hx Human Immunodeficiency Virus (HIV): No Hx Hepatitis C: No Hx Depression: Yes (in [place] psych - got out October 13 2018) Hx Suicide Attempt: No Hx Bipolar Disorder: No Hx Schizophrenia: No - Patient Surgical History Past Surgical History: Yes Hx Neurologic Surgery: No Hx Cataract Extraction: No Hx Cardiac Surgery: No Hx Lung Surgery: No Hx Breast Surgery: No Hx Breast Biopsy: No Hx Abdominal Surgery: Yes (banding of esophageal varices) Hx Appendectomy: No Hx Cholecystectomy: No Hx Genitourinary Surgery: No Hx Section: No Hx Orthopedic Surgery: No Hx Hysterectomy: No Anesthesia Reaction: No - PPD History Date: 07/31/18 Results: NEGATIVE - Smoking Cessation Smoking history: Former smoker Have you smoked in the past 12 months: No Aproximately how many cigarettes per day: 10 Cigars Per Day: 0 Hx Chewing Tobacco Use: No Initiated information on smoking cessation: Yes 'Breaking Loose' booklet given: 05/27/19 - Substances abused Alcohol Substance route: Oral Frequency: Daily Amount used: BEER- 6 cans (24oz) Age of first use: 14 Date of last use: 05/27/19 Admission Physical Exam [facility] - Physical General Appearance: Yes: Intoxicated HEENTM: Yes: EOMI, Hearing grossly Normal, Normocephalic, Normal Voice, Scleral Ictenus R, Scleral Ictenus L Respiratory: Yes: Chest Non-Tender, Lungs Clear, Normal Breath Sounds, No Respiratory Distress, No Accessory Muscle Use Neck: Yes: No masses,lesions,Nodules, Trachea in good position Cardiology: Yes: Regular Rhythm, Regular Rate, S1, S2, Tachycardia Abdominal: Yes: Non Tender, Soft, Other (morbid obesity) Musculoskeletal: Yes: Gait Steady Extremities: Yes: Normal Range of Motion, Non-Tender, Tremors Neurological: Yes: Alert, Normal Mood/Affect Integumentary: Yes: Warm, Jaundice, Other (superficial excoriations from pruritus) - Diagnostic (1) Alcohol dependence with uncomplicated withdrawal Current Visit: Yes Status: Chronic Breathalyzer - Breathalyzer Breathalyzer: 0.183 Urine Drug Screen - Test Device Lot number: [id number] Expiration date: 11/04/20 - Control Is test valid?: Yes - Results Drug screen NEGATIVE: Yes Urine drug screen results: BZO-Benzodiazepines Inpatient Rehab Admission - Rehab Decision to Admit Inpatient rehab admission?: No
[2019-05-27 20:00] VITALS: BMI 47.5
[2019-05-27] MEDS ORDERED: MAGNESIUM CITRATE 300 ML BOTTLE PO PRN (20:00)
[2019-05-27] MEDS ORDERED: BISMUTH SUBSALICYLATE 524 MG/30 ML UD PO PRN (20:00)
[2019-05-27] MEDS ORDERED: IBUPROFEN 400 MG TABLET (FP) PO PRN (20:00)
[2019-05-27] MEDS ORDERED: MAG HYDROX/AL HYDROX/SIMETH 30 ML UNIT-DOSE CUP PO PRN (20:00)
[2019-05-27] MEDS ORDERED: ACETAMINOPHEN 325 MG TABLET (FP) PO PRN ×2 (20:00)
[2019-05-27] MEDS ORDERED: hydrOXYzine PAMOATE 25 MG CAPSULE (FP) PO PRN (20:00)
[2019-05-27] MEDS ORDERED: MAGNESIUM HYDROX 2400MG/30ML ORAL SUSPENSION 30 ML CUP PO PRN (20:00)
[2019-05-27] MEDS ORDERED: MENTHOL/PHENOL 1 EACH UD MM PRN (20:00)
[2019-05-27] MEDS ORDERED: MELATONIN 5 MG TABLETS PO PRN (20:00)
[2019-05-27] MEDS ORDERED: diazePAM 5 MG TABLET PO ONE (20:15)
[2019-05-27] MEDS: diazePAM 5 MG TABLET PO SCH (23:00)
[2019-05-27] MEDS: THIAMINE HCL 100 MG TABLET (FP) PO SCH (23:00)
[2019-05-28] MEDS: diazePAM 5 MG TABLET PO SCH ×3 (05:44→22:22)
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
[2019-05-28] MEDS ORDERED: ESCITALOPRAM OXALATE 10 MG TABLET PO SCH (10:00)
[2019-05-28] MEDS: PRENATAL VITAMINS W/ FOLIC ACID TABLET (FP) PO SCH (10:08)
[2019-05-28 10:39] LABS: HEMOGLOBIN 12.7 GM/dL (11.7-16.9); MCH 32.3 pg (25.7-33.7); MCHC 35.2 g/dl (32.0-35.9); MEAN CELL VOLUME 91.9 fl (80-96); MEAN PLT VOLUME 8.8 fl (7.5-11.1); RBC 3.92 M/mm3 (4.00-5.60); RDW 14.7 % (11.9-15.9); WHITE BLOOD COUNT 3.8 K/mm3 (4.0-10.0)
[2019-05-28 10:42] LABS: PLATELET COUNT 24 K/MM3 (134-434)
[2019-05-28 10:58] LABS: ALBUMIN 2.8 g/dl (3.4-5.0); BILIRUBIN,TOTAL 4.3 mg/dL (0.2-1); BLOOD UREA NITROGEN 4.5 mg/dL (7-18); CALCIUM 7.8 mg/dL (8.5-10.1); CREATININE 0.5 mg/dL (0.55-1.3); POTASSIUM 3.7 mmol/L (3.5-5.1); TOT PROT 6.7 g/dl (6.4-8.2)
--- NOTE | 2019-05-28 11:10 | PN ---
S CIWA - CIWA Score Nausea/Vomitin-Mild Nausea/No Vomiting Muscle Tremors: 2 Anxiety: 2 Agitation: 0-Normal Activity Paroxysmal Sweats: 2 Orientation: 0-Oriented Tacttile Disturbances: 1-Very Mild Itch/Numbness Auditory Disturbances: 0-None Visual Disturbances: 0-None Headache: 0-None Present CIWA-Ar Total Score: 8 BHS Progress Note (SOAP) Subjective: interrupted sleep, sweats, shakes, decreased appetite Objective: 05/28/19 11:08 Vital Signs Temperature 98.2 F 05/28/19 08:42 Pulse Rate 97 H 05/28/19 08:42 Respiratory Rate 05/28/19 08:42 Blood Pressure 159/78 05/28/19 08:42 O2 Sat by Pulse Oximetry (%) Laboratory Tests 05/28/19 05/28/19 07:40 07:40 WBC 3.8 L RBC 3.92 L Hgb 12.7 Hct 36.0 MCV 91.9 MCH 32.3 MCHC 35.2 RDW 14.7 Plt Count 24 L* D MPV 8.8 D Sodium 139 Potassium 3.7 Chloride 108 H Carbon Dioxide 24 Anion Gap 7 L BUN 4.5 L Creatinine 0.5 L Est GFR (CKD-EPI)AfAm 167.36 Est GFR (CKD-EPI)NonAf 144.40 Random Glucose 167 H Calcium 7.8 L Total Bilirubin 4.3 H AST 95 H ALT 35 Alkaline Phosphatase 193 H Total Protein 6.7 Albumin 2.8 L pt aox3 in nad lying in bed Assessment: 05/28/19 11:09 withdrawal sx h/o cirhosis thrombocytopenia 25k, 02/19/19- 24k : no bleeding hyperglycemia 167, 02/19/19- 155 elevated sgot 95 , 02/19/19- 160 05/28/19 11:18 Plan: cont detox increease fluids d/c motrin d/c tylenol bgm and coverage
[2019-05-28] MEDS: diazePAM 5 MG TABLET PO PRN ×2 (11:51→17:31)
[2019-05-28] MEDS: INSULIN SLIDING SCALE (NOVOLOG) 1 VIAL SQ SCH (17:29)
--- NOTE | 2019-05-28 17:32 | PN ---
[facility] Progress Note Note: Vistaril d/c. Patient w/ hx prolonged QTc.
[2019-05-28] MEDS: THIAMINE HCL 100 MG TABLET (FP) PO SCH (22:21)
[2019-05-28] MEDS: SUVOREXANT 10 MG TABLET PO PRN (22:22)
[2019-05-29] MEDS: diazePAM 5 MG TABLET PO SCH ×2 (05:19→17:41)
[2019-05-29] MEDS: INSULIN SLIDING SCALE (NOVOLOG) 1 VIAL SQ SCH ×2 (06:40→17:42)
[2019-05-29] MEDS: PRENATAL VITAMINS W/ FOLIC ACID TABLET (FP) PO SCH (10:08)
[2019-05-29] MEDS: diazePAM 5 MG TABLET PO PRN ×2 (14:50→22:11)
--- NOTE | 2019-05-29 17:26 | PN ---
[facility] CIWA - CIWA Score Nausea/Vomitin-No Nausea/No Vomiting Muscle Tremors: None Anxiety: 2 Agitation: 1-Slight > Activity Paroxysmal Sweats: 3 Orientation: 0-Oriented Tacttile Disturbances: 1-Very Mild Itch/Numbness Auditory Disturbances: 0-None Visual Disturbances: 1-Very Mild Sensitivity Headache: 0-None Present CIWA-Ar Total Score: 8 BHS Progress Note (SOAP) Subjective: Interrupted Sleep, Sweating. Patient reports that withdrawal symptoms have improved considerably since time of admission to Detox Unit. Objective: PATIENT A & O X 3, OBSERVED AMBULATING ON DETOX UNIT UNASSISTED. IN NO ACUTE DISTRESS. 05/29/19 17:27 Vital Signs Temperature 98.2 F 05/29/19 15:36 Pulse Rate 72 05/29/19 15:36 Respiratory Rate 05/29/19 15:36 Blood Pressure 142/70 05/29/19 15:36 O2 Sat by Pulse Oximetry (%) Laboratory Tests 05/28/19 05/28/19 05/28/19 07:40 07:40 07:40 WBC 3.8 L RBC 3.92 L Hgb 12.7 Hct 36.0 MCV 91.9 MCH 32.3 MCHC 35.2 RDW 14.7 Plt Count 24 L* D MPV 8.8 D Sodium 139 Potassium 3.7 Chloride 108 H Carbon Dioxide 24 Anion Gap 7 L BUN 4.5 L Creatinine 0.5 L Est GFR (CKD-EPI)AfAm 167.36 Est GFR (CKD-EPI)NonAf 144.40 POC Glucometer Random Glucose 167 H Calcium 7.8 L Total Bilirubin 4.3 H AST 95 H ALT 35 Alkaline Phosphatase 193 H Total Protein 6.7 Albumin 2.8 L RPR Titer Nonreactive 05/28/19 05/29/19 05/29/19 16:16 05:17 17:07 WBC RBC Hgb Hct MCV MCH MCHC RDW Plt Count MPV Sodium Potassium Chloride Carbon Dioxide Anion Gap BUN Creatinine Est GFR (CKD-EPI)AfAm Est GFR (CKD-EPI)NonAf POC Glucometer 130 124 148 Random Glucose Calcium Total Bilirubin AST ALT Alkaline Phosphatase Total Protein Albumin RPR Titer LABS NOTED. PATIENT HAS HISTORY OF LOW PLATELET AND CALCIUM LEVELS AND OF ELEVATED LIVE ENZYME LEVELS AND OF ELEVATED BILIRUBIN LEVELS NOTED ON PREVIOUS DETOX ADMISSIONS. PATIENT NOTES THAT HE HAS CONSULTED AN OUTSIDE MEDICAL PROVIDER FOR EVALUATION OF LIVER DISORDER AND FOR HEPATIC LABORATORY ABNORMALITIES NOTED ABOVE. 05/29/19 17:29 Assessment: 05/29/19 17:31 WITHDRAWAL SYMPTOMS. HYPERBILIRUBINEMIA. ELEVATED AST LEVEL. ELEVATED ALKALINE PHOSPHATASE LEVEL. HYPOCALCEMIA. THROMBOCYTOPENIA. Plan: CONTINUE DETOX. PATIENT SCHEDULED FOR D/C FROM DETOX UNIT TOMORROW.
[2019-05-29] MEDS: SUVOREXANT 10 MG TABLET PO PRN (22:09)
[2019-05-29] MEDS: THIAMINE HCL 100 MG TABLET (FP) PO SCH (23:03)
[2019-05-30] MEDS: CALCIUM 500MG/VIT-D 200 UNITS COMBO TABLET (FP) PO SCH ×3 (00:06→22:20)
[2019-05-30] MEDS ORDERED: diazePAM 5 MG TABLET PO ONE (06:00)
[2019-05-30] MEDS: INSULIN SLIDING SCALE (NOVOLOG) 1 VIAL SQ SCH ×2 (06:37→16:55)
[2019-05-30] MEDS: PRENATAL VITAMINS W/ FOLIC ACID TABLET (FP) PO SCH (10:36)
--- NOTE | 2019-05-30 16:31 | PN ---
S CIWA - CIWA Score Nausea/Vomitin-No Nausea/No Vomiting Muscle Tremors: None Anxiety: 2 Agitation: 2 Paroxysmal Sweats: 2 Orientation: 0-Oriented Tacttile Disturbances: 0-None Auditory Disturbances: 0-None Visual Disturbances: 0-None Headache: 0-None Present CIWA-Ar Total Score: 6 BHS Progress Note (SOAP) Subjective: Anxious, interrupted sleep. Patient requesting discharge tomorrow to rehab instead of discharge home today because he's afraid of relapsing Objective: 05/30/19 16:27 Last Vital Signs Temp Pulse Resp BP Pulse Ox 97.9 F 107 H 19 135/73 05/30/19 12:52 05/30/19 12:52 05/30/19 12:52 05/30/19 12:52 Tachycardia noted: most likely r/t anxiety Laboratory Tests 05/28/19 05/28/19 05/28/19 07:40 07:40 07:40 WBC 3.8 L RBC 3.92 L Hgb 12.7 Hct 36.0 MCV 91.9 MCH 32.3 MCHC 35.2 RDW 14.7 Plt Count 24 L* D MPV 8.8 D Sodium 139 Potassium 3.7 Chloride 108 H Carbon Dioxide 24 Anion Gap 7 L BUN 4.5 L Creatinine 0.5 L Est GFR (CKD-EPI)AfAm 167.36 Est GFR (CKD-EPI)NonAf 144.40 POC Glucometer Random Glucose 167 H Calcium 7.8 L Total Bilirubin 4.3 H AST 95 H ALT 35 Alkaline Phosphatase 193 H Total Protein 6.7 Albumin 2.8 L RPR Titer Nonreactive 05/28/19 05/29/19 05/29/19 16:16 05:17 17:07 WBC RBC Hgb Hct MCV MCH MCHC RDW Plt Count MPV Sodium Potassium Chloride Carbon Dioxide Anion Gap BUN Creatinine Est GFR (CKD-EPI)AfAm Est GFR (CKD-EPI)NonAf POC Glucometer 130 124 148 Random Glucose Calcium Total Bilirubin AST ALT Alkaline Phosphatase Total Protein Albumin RPR Titer 05/30/19 06:36 WBC RBC Hgb Hct MCV MCH MCHC RDW Plt Count MPV Sodium Potassium Chloride Carbon Dioxide Anion Gap BUN Creatinine Est GFR (CKD-EPI)AfAm Est GFR (CKD-EPI)NonAf POC Glucometer 118 Random Glucose Calcium Total Bilirubin AST ALT Alkaline Phosphatase Total Protein Albumin RPR Titer Labs reviewed: plt 24 (extremely low), Ca 7.8 (low), abnormal LFTs (elevated), hyperglycemia Assessment: 05/30/19 16:30 Withdrawal sxs Noted with thrombocytopenia, hyperglycemia, hypocalcemia and abnormal LFTs Plan: Continue detox Encouraged PO water intake Patient discharge changed from today to tomorrow due to increased risk for relapse, patient requesting inpatient rehab upon discharge tomorrow Thrombocytopenia: r/t cirrhosis of liver, monitor for bruising/bleeding, follow up with PCP/Garde Manager/GI Specialist post discharge Hyperglycemia: denies DM, reading trending downward so most likely has prediabetes, continue insulin SS with coverage, follow up with PCP for management Hypocalcemia: supplemented Abnormal LFTs: due to liver cirrhosis secondary to chronic alcoholism, encouraged abstinence, follow up with PCP for management
[2019-05-30] MEDS: THIAMINE HCL 100 MG TABLET (FP) PO SCH (22:20)
[2019-05-30] MEDS: SUVOREXANT 10 MG TABLET PO PRN (22:21)
[2019-05-31 06:42] VITALS: PULSE 81
[2019-05-31] MEDS: INSULIN SLIDING SCALE (NOVOLOG) 1 VIAL SQ SCH (07:41)
[2019-05-31 10:03] VITALS: BP 152/75; TEMP 98.1
--- NOTE | 2019-05-31 10:48 | DS ---
[facility] Detox Discharge Summary Admission Date: 05/27/19 Discharge Date: 05/31/19 - History Present History: Alcohol Dependence Pertinent Past History: Pt admitted for alcohol detox. Pt has h/o alcholic cirrhosis, esophageal bleeding. Completed detox. Discharge home. O: Vital Signs - 24 hr 05/30/19 05/30/19 05/30/19 12:52 16:54 21:42 Temperature 97.9 F 97.9 F 98.4 F Pulse Rate 107 H 94 H 105 H Respiratory 19 18 18 Rate Blood Pressure 135/73 144/82 148/83 05/31/19 05/31/19 05/31/19 00:31 03:30 06:40 Temperature Pulse Rate Respiratory 18 18 18 Rate Blood Pressure 05/31/19 05/31/19 06:41 08:35 Temperature 98.2 F 98.1 F Pulse Rate 81 Respiratory 18 18 Rate Blood Pressure 152/83 152/75 Laboratory Tests 05/28/19 05/28/19 05/28/19 07:40 07:40 07:40 WBC 3.8 L RBC 3.92 L Hgb 12.7 Hct 36.0 MCV 91.9 MCH 32.3 MCHC 35.2 RDW 14.7 Plt Count 24 L* D MPV 8.8 D Sodium 139 Potassium 3.7 Chloride 108 H Carbon Dioxide 24 Anion Gap 7 L BUN 4.5 L Creatinine 0.5 L Est GFR (CKD-EPI)AfAm 167.36 Est GFR (CKD-EPI)NonAf 144.40 POC Glucometer Random Glucose 167 H Calcium 7.8 L Total Bilirubin 4.3 H AST 95 H ALT 35 Alkaline Phosphatase 193 H Total Protein 6.7 Albumin 2.8 L RPR Titer Nonreactive 05/28/19 05/29/19 05/29/19 16:16 05:17 17:07 WBC RBC Hgb Hct MCV MCH MCHC RDW Plt Count MPV Sodium Potassium Chloride Carbon Dioxide Anion Gap BUN Creatinine Est GFR (CKD-EPI)AfAm Est GFR (CKD-EPI)NonAf POC Glucometer 130 124 148 Random Glucose Calcium Total Bilirubin AST ALT Alkaline Phosphatase Total Protein Albumin RPR Titer 05/30/19 05/30/19 05/31/19 06:36 16:47 06:16 WBC RBC Hgb Hct MCV MCH MCHC RDW Plt Count MPV Sodium Potassium Chloride Carbon Dioxide Anion Gap BUN Creatinine Est GFR (CKD-EPI)AfAm Est GFR (CKD-EPI)NonAf POC Glucometer 118 177 123 Random Glucose Calcium Total Bilirubin AST ALT Alkaline Phosphatase Total Protein Albumin RPR Titer low plts - Physical Exam Results Vital Signs: Vital Signs Temperature 98.1 F 05/31/19 08:35 Pulse Rate 81 05/31/19 06:41 Respiratory Rate 18 05/31/19 08:35 Blood Pressure 152/75 05/31/19 08:35 O2 Sat by Pulse Oximetry (%) - Treatment Hospital Course: Detox Protocol Followed, Detoxed Safely, Responded well, Discharged Condition Good - Medication Discharge Medications: Ambulatory Orders Escitalopram Oxalate [Lexapro -] 10 mg PO DAILY 10/31/18 - AMA Did Patient Leave Against Medical Advice: No
[2019-05-31] MEDS: CALCIUM 500MG/VIT-D 200 UNITS COMBO TABLET (FP) PO SCH (11:52)
[2019-05-31] MEDS: PRENATAL VITAMINS W/ FOLIC ACID TABLET (FP) PO SCH (11:52)
== END 2019-05-31 09:38 | disposition home or self-care (01) | DRG 775 ==
LOC: YASAS 19:22 → Y6N 20:08
PROVIDERS: ADMIT Allergy & Immunology; ATTEND Allergy & Immunology
PROC: HZ2ZZZZ Detoxification Services for Substance Abuse Treatment (ICD-10-PCS; principal; 2019-05-27)
DX: F10.230 Alcohol dependence with withdrawal, uncomplicated (principal); F17.210 Nicotine dependence, cigarettes, uncomplicated; F10.282 Alcohol dependence with alcohol-induced sleep disorder; F32.9 Major depressive disorder, single episode, unspecified; I10 Essential (primary) hypertension; K21.9 Gastro-esophageal reflux disease without esophagitis; K70.31 Alcoholic cirrhosis of liver with ascites; K70.10 Alcoholic hepatitis without ascites; D50.9 Iron deficiency anemia, unspecified; D69.6 Thrombocytopenia, unspecified; E83.51 Hypocalcemia; R73.9 Hyperglycemia, unspecified; R94.5 Abnormal results of liver function studies; R74.8 Abnormal levels of other serum enzymes; R74.0 Nonspecific elevation of levels of transaminase and lactic acid dehydrogenase [LDH]; E80.6 Other disorders of bilirubin metabolism; I83.93 Asymptomatic varicose veins of bilateral lower extremities; E66.01 Morbid (severe) obesity due to excess calories; Z68.42 Body mass index [BMI] 45.0-49.9, adult; Z87.19 Personal history of other diseases of the digestive system
CPT/HCPCS: 36415; 80053; 82962; 85027; 86593

== ENCOUNTER 2019-10-01 10:41 | Inpatient (IN) | payer OTHER ==
--- NOTE | 2019-10-01 12:17 | BHS.RME ---
Substance Use & Tx History - Substance Use History Alcohol Substance amount: 5 x 24 ounce beer Frequency of use: Daily Substance route: Oral Date of Last Use: 10/01/19 (First use age 14y. No seizures, no blackouts. Admits to drinking in the am) Cocaine- Powder Substance amount: $50 Frequency of use: Less than 3 times per week Substance route: Inhalation (ex: sniffing or snorting) Date of Last Use: 09/24/19 (First use 2 years ago) Nicotine Substance amount: one pack/2days Frequency of use: Less than 3 times per week Substance route: Smoking Date of Last Use: 10/01/19 (First use age 24y) - Last Treatment Treatment type: Substance Use Disorder (QUETA) (05/27 to 05/31/19) Where was last treatment: Detox Physical/Psych/Mental Status - Behavior General Behavior: Increased activity (restlessness, agitation) Eye Contact: Normal - Cooperativeness Cooperativeness: Cooperative - Thinking Thought Processes: Tight Thought content: Future oriented - Physical Health Problems Is patient presently having any pain?: No Does patient presently have any injuries (include location): No Does patient currently have a fever: No CIWA Nausea/Vomitin-No Nausea/No Vomiting Muscle Tremors: 1-None Visible, but [place] Anxiety: 0-No Anxiety, at Ease Agitation: 0-Normal Activity Paroxysmal Sweats: 3 Orientation: 0-Oriented Tacttile Disturbances: 0-None Auditory Disturbances: 0-None Visual Disturbances: 0-None Headache: 4-Moderately Severe CIWA-Ar Total Score: 8
--- NOTE | 2019-10-01 13:31 | HP ---
CIWA Score Nausea/Vomitin-No Nausea/No Vomiting Muscle Tremors: 1-None Visible, but [place] Anxiety: 0-No Anxiety, at Ease Agitation: 0-Normal Activity Paroxysmal Sweats: 3 Orientation: 0-Oriented Tacttile Disturbances: 0-None Auditory Disturbances: 0-None Visual Disturbances: 0-None Headache: 4-Moderately Severe CIWA-Ar Total Score: 8 - Admission Criteria OASAS Guidelines: Admission for Medically Managed Detox: Requires at least one of the followin. CIWA greater than 12 2. Seizures within the past 24 hours 3. Delirium tremens within the past 24 hours 4. Hallucinations within the past 24 hours 5. Acute intervention needed for co occurring medical disorder 6. Acute intervention needed for co occurring psychiatric disorder 7. Severe withdrawal that cannot be handled at a lower level of care (continued vomiting, continued diarrhea, abnormal vital signs) requiring intravenous medication and/or fluids 8. Admitting History and Physical - Admission Chief Complaint: Mr. Luna presents to [facility] stating " I am here because I don't want to keep drinking". He requests admission to detox. History of Present Illness: Mr. Luna presents to [facility] stating " I am here because I don't want to keep drinking". He requests admission to detox. PMH: HTN when drinking, elevated glucose on Metformin PSH: esophagael varicies banded Psych: depression, was on Lexapro, stopped by SOC: lives with mother Legal: none pending Substance Use History Alcohol Substance amount: 5 x 24 ounce beer Frequency of use: Daily Substance route: Oral Date of Last Use: 10/01/19 (First use age 14y. No seizures, no blackouts. Admits to drinking in the am) Typical withdrawal sx: tremor, heat in neck, nausea Cocaine- Powder Substance amount: $50 Frequency of use: Less than 3 times per week Substance route: Inhalation (ex: sniffing or snorting) Date of Last Use: 09/24/19 (First use 2 years ago) Nicotine Substance amount: one pack/2days Frequency of use: Less than 3 times per week Substance route: Smoking Date of Last Use: 10/01/19 (First use age 24y) - Last Treatment Treatment type: Substance Use Disorder (QUETA) (05/27 to 05/31/19) Where was last treatment: Detox Meets admission criteria: CIWA 8, however ASHA elevated at 0.198, full effects of withdrawal not evident. comorbid glucose elevation, prior depression History Source: Patient Limitations to Obtaining History: No Limitations - Past Medical History Hepatobiliary: Yes: Cirrhosis ([place]), Other (Alcoholic hepatitis, esophageal varices s/p EVL (non-bleeding) 05/25) - Smoking History Smoking history: Former smoker Have you smoked in the past 12 months: No Aproximately how many cigarettes per day: 10 - Alcohol/Substance Use Hx Alcohol Use: Yes History of Substance Use: reports: None - Social History ADL: Independent History of Recent Travel: No Admission ROS BHS - HPI Allergies/Adverse Reactions: Allergies Allergy/AdvReac Type Severity Reaction Status Date / Time No Known Allergies Allergy Verified 05/29/19 14:36 Exam Limitations: No Limitations - Ebola screening Have you traveled outside of the country in the last 21 days: No Have you been sick,other than usual withdrawal symptoms: No Do you have a fever: No - Review of Systems Constitutional: Other (25 lb weight gain in 3 mos) EENT: reports: No Symptoms Reported Respiratory: reports: No Symptoms reported Cardiac: reports: No Symptoms Reported GI: reports: Nausea : reports: No Symptoms Reported Musculoskeletal: reports: No Symptoms Reported Integumentary: reports: No Symptoms Reported Neuro: reports: Headache Endocrine: reports: Other (on metformin for high glucose) Hematology: reports: No Symptoms Reported Psychiatric: reports: other (prior dx of depression, no SI/SA, no hospital izations) Patient History - Patient Medical History Hx Anemia: No Hx Asthma: No Hx Chronic Obstructive Pulmonary Disease (COPD): No Hx Cancer: No Hx Cardiac Disorders: No Hx Congestive Heart Failure: No Hx Hypertension: Yes (Not on medication) Hx Hypercholesterolemia: No Hx Pacemaker: No HX Cerebrovascular Accident: No Hx Seizures: No Hx Dementia: No Hx Diabetes: No Hx Gastrointestinal Disorders: Yes (GERD) Hx Liver Disease: Yes (Cirrhosis, varices) Hx Genitourinary Disorders: No Hx Sexually Transmitted Disorders: No Hx Renal Disease (ESRD): No Hx Thyroid Disease: No Hx Human Immunodeficiency Virus (HIV): No Hx Hepatitis C: No Hx Depression: Yes (in [place] psych - got out October 13 2018) Hx Suicide Attempt: No Hx Bipolar Disorder: No Hx Schizophrenia: No - Patient Surgical History Past Surgical History: Yes Hx Neurologic Surgery: No Hx Cataract Extraction: No Hx Cardiac Surgery: No Hx Lung Surgery: No Hx Breast Surgery: No Hx Breast Biopsy: No Hx Abdominal Surgery: Yes (banding of esophageal varices) Hx Appendectomy: No Hx Cholecystectomy: No Hx Genitourinary Surgery: No Hx Section: No Hx Orthopedic Surgery: No Hx Hysterectomy: No Anesthesia Reaction: No - PPD History Date: 07/31/18 Results: NEGATIVE - Smoking Cessation Smoking history: Former smoker Have you smoked in the past 12 months: No Aproximately how many cigarettes per day: 10 Cigars Per Day: 0 Hx Chewing Tobacco Use: No Initiated information on smoking cessation: Yes 'Breaking Loose' booklet given: 10/01/19 Admission Physical Exam [facility] - Physical General Appearance: Yes: Nourished, Anxious HEENTM: Yes: EOMI, Hearing grossly Normal, Other (conjuntival injection, he attributes to wearing contact lenses) Respiratory: Yes: Lungs Clear, Normal Breath Sounds, No Accessory Muscle Use Neck: Yes: Within Normal Limits, Supple Breast: Yes: Breast Exam Deferred Cardiology: Yes: Regular Rhythm, Regular Rate, S1, S2 Abdominal: Yes: Non Tender, Soft, Increased Bowel Sounds, Protuberent Genitourinary: Yes: Other (deferred) Back: Yes: Normal Inspection Musculoskeletal: Yes: Gait Steady Extremities: Yes: Normal Inspection, Non-Tender Neurological: Yes: Alert, Normal Mood/Affect, Normal Response Integumentary: Yes: Within Normal Limits - Diagnostic (1) Cocaine use disorder Current Visit: Yes Status: Acute (2) Hyperglycemia Current Visit: Yes Status: Chronic (3) Alcohol dependence with uncomplicated withdrawal Current Visit: Yes Status: Acute (4) HTN (hypertension) Current Visit: Yes Status: Chronic Qualifiers: Hypertension type: essential hypertension Qualified Code(s): I10 - Essential (primary) hypertension (5) Nicotine dependence Current Visit: Yes Status: Acute Qualifiers: Nicotine product type: cigarettes Substance use status: uncomplicated Qualified Code(s): F17.210 - Nicotine dependence, cigarettes, uncomplicated (6) Depression Current Visit: No Status: Suspected Qualifiers: Depression Type: unspecified Qualified Code(s): F32.9 - Major depressive disorder, single episode, unspecified (7) Hx of esophageal varices Current Visit: No Status: Resolved Cleared for Admission S - Detox or Rehab [facility] Level of Care: Medically Managed Detox Regimen/Protocol: Librium Breathalyzer - Breathalyzer Breathalyzer: 0.196 Urine Drug Screen - Test Device Lot number: [id number] Expiration date: 12/05/20 - Control Is test valid?: Yes - Results Drug screen NEGATIVE: Yes Urine drug screen results: BZO-Benzodiazepines Inpatient Rehab Admission - Rehab Decision to Admit Inpatient rehab admission?: No
[2019-10-01] MEDS ORDERED: ONDANSETRON *ODT* 4 MG TABLET SL PRN (13:36)
[2019-10-01] MEDS ORDERED: chlordiazePOXIDE HCL 25 MG CAPSULE PO PRN (13:36)
[2019-10-01] MEDS ORDERED: BISMUTH SUBSALICYLATE 262 MG/15 ML BTL PO PRN (13:36)
[2019-10-01] MEDS ORDERED: IBUPROFEN 400 MG TABLET (FP) PO PRN (13:36)
[2019-10-01] MEDS ORDERED: MAGNESIUM CITRATE 300 ML BOTTLE PO PRN (13:36)
[2019-10-01] MEDS ORDERED: MAGNESIUM HYDROX 2400MG/30ML ORAL SUSPENSION 30 ML CUP PO PRN (13:36)
[2019-10-01] MEDS ORDERED: METHOCARBAMOL 500 MG TABLET PO PRN (13:36)
[2019-10-01] MEDS ORDERED: ACETAMINOPHEN 325 MG TABLET (FP) PO PRN ×2 (13:36)
[2019-10-01] MEDS ORDERED: MENTHOL/PHENOL 1 EACH UD MM PRN (13:36)
[2019-10-01] MEDS ORDERED: MAG HYDROX/AL HYDROX/SIMETH 30 ML UNIT-DOSE CUP PO PRN (13:36)
[2019-10-01 14:36] VITALS: BMI 52.0
[2019-10-01] MEDS: hydrOXYzine PAMOATE 25 MG CAPSULE (FP) PO SCH ×3 (15:48→22:50)
[2019-10-01] MEDS: PRENATAL VITAMINS W/ FOLIC ACID TABLET (FP) PO SCH (15:48)
[2019-10-01] MEDS: NICOTINE 14 MG/24 HOURS TOPICAL PATCH TD SCH (15:49)
[2019-10-01] MEDS: NICOTINE POLACRILEX 2 MG GUM BUC PRN (15:51)
[2019-10-01 17:02] LABS: HEMATOCRIT 39.4 % (35.4-49); HEMOGLOBIN 13.5 GM/dL (11.7-16.9); MCH 31.2 pg (25.7-33.7); MCHC 34.3 g/dl (32.0-35.9); MEAN CELL VOLUME 90.8 fl (80-96); RBC 4.34 M/mm3 (4.00-5.60); RDW 15.2 % (11.9-15.9); WHITE BLOOD COUNT 3.3 K/mm3 (4.0-10.0)
[2019-10-01 17:19] LABS: ALBUMIN 2.7 g/dl (3.4-5.0); BILIRUBIN,TOTAL 1.6 mg/dL (0.2-1); CALCIUM 7.9 mg/dL (8.5-10.1); CREATININE 0.6 mg/dL (0.55-1.3); POTASSIUM 4.5 mmol/L (3.5-5.1); TOT PROT 6.3 g/dl (6.4-8.2)
[2019-10-01 17:56] LABS: MEAN PLT VOLUME 9.7 fl (7.5-11.1)
[2019-10-01 17:57] LABS: PLATELET COUNT 36 K/MM3 (134-434)
[2019-10-01] MEDS: chlordiazePOXIDE HCL 25 MG CAPSULE PO SCH ×3 (18:12→23:57)
[2019-10-01 18:16] LABS: BLOOD UREA NITROGEN 2.6 mg/dL (7-18)
--- NOTE | 2019-10-01 19:04 | PN ---
[facility] Progress Note Note: Received lab. report that indicates patient's platelet at 36. He has medical history of Alcoholic hepatitis, liver Cirrhosis and esophageal varices s/p EVL (non-bleeding). Patient is being transferred to emergency room for further evaluation. Endorsed to Dr. Conteh Vital Signs Temperature 97.8 F 10/01/19 16:10 Pulse Rate 91 H 10/01/19 16:10 Respiratory Rate 18 10/01/19 16:10 Blood Pressure 142/81 10/01/19 16:10 O2 Sat by Pulse Oximetry (%) 98 10/01/19 15:26 10/01/19 10/01/19 14:15 14:15 WBC 3.3 L RBC 4.34 Hgb 13.5 Hct 39.4 MCV 90.8 MCHC 34.3 RDW 15.2 Plt Count 36 L* D Sodium 140 Potassium 4.5 Chloride 106 Carbon Dioxide 26 Anion Gap 7 L BUN 2.6 L* Creatinine 0.6 Action: Evaluate in ER.
[2019-10-01] MEDS: TETRAHYDROZOLINE HCL EYE DROPS OD PRN (19:24)
[2019-10-01] MEDS: THIAMINE HCL 100 MG TABLET (FP) PO SCH (22:50)
[2019-10-01] MEDS: MELATONIN 5 MG TABLETS PO SCH (22:50)
[2019-10-02] MEDS: hydrOXYzine PAMOATE 25 MG CAPSULE (FP) PO SCH ×5 (05:21→22:15)
[2019-10-02] MEDS: chlordiazePOXIDE HCL 25 MG CAPSULE PO SCH ×4 (05:21→22:15)
[2019-10-02] MEDS: PRENATAL VITAMINS W/ FOLIC ACID TABLET (FP) PO SCH (10:13)
[2019-10-02] MEDS: NICOTINE 14 MG/24 HOURS TOPICAL PATCH TD SCH (10:13)
[2019-10-02] MEDS: TETRAHYDROZOLINE HCL EYE DROPS OD PRN ×2 (10:15→21:00)
[2019-10-02] MEDS: NICOTINE POLACRILEX 2 MG GUM BUC PRN ×2 (10:15→17:32)
--- NOTE | 2019-10-02 10:54 | CONSULT ---
[facility] Psychiatric Consult - Data Date of interview: 10/02/19 Admission source: [facility] Identifying data: Patient is a 29 year old single male, father of three, unemployed, domiciled, and is financially supported by his siblings. This is one of multiple admissions for patient. Patient admitted to for alcohol and cocaine dependence. Substance Abuse History: Substance Use History. Alcohol. Substance amount: 5 x 24 ounce beer. Frequency of use: Daily. Substance route: Oral. Date of Last Use: 10/01/19 (First use age 14y. No seizures, no blackouts. Admits to drinking in the am). Typical withdrawal sx: tremor, heat in neck, nausea. Cocaine- Powder. Substance amount: $50. Frequency of use: Less than 3 times per week. Substance route: Inhalation (ex: sniffing or snorting). Date of Last Use: 09/24/19 (First use 2 years ago). Nicotine. Substance amount: one pack/2days. Frequency of use: Less than 3 times per week. Substance route: Smoking. Date of Last Use: 10/01/19 (First use age 24y) Medical History: Significant for GERD, hypertension, alcoholic hepatitis, cirrhosis of the liver and surgery for banding of esophageal varices. Psychiatric History: Mr. Luna reports history of one psychiatric hospitalization two years ago at [facility] in [place], [place] due to feeling depressed. He was diagnosed with MDD and started on Lexapro 10 mg/day. After discharge he continued treatment at [facility] for inpatient rehab. Mr. Luna is currently receiving psychiatric care at the [facility] and is prescribed lexapro 10mg but admits to noncompliance to lexapro. No reported history of suicide attempt. At present patient is requesting Belsomra for insomnia and is not interested in restarting lexapro. Physical/Sexual Abuse/Trauma History: denies. Mental Status Exam - Mental Status Exam Alert and Oriented to: Time, Place, Person Cognitive Function: Good Patient Appearance: Well Groomed Mood: Hopeful Affect: Appropriate Patient Behavior: Appropriate, Cooperative Speech Pattern: Appropriate Voice Loudness: Normal Thought Process: Intact, Goal Oriented Hallucinations: Denies Suicidal Ideation: Denies Homicidal Ideation: Denies Insight/Judgement: Poor Sleep: Poorly Appetite: Fair Muscle strength/Tone: Normal Gait/Station: Normal Psychiatric Findings - Problem List ([place] 1, 2,3) (1) Substance-induced sleep disorder Current Visit: Yes Status: Acute (2) Alcohol dependence with uncomplicated withdrawal Current Visit: Yes Status: Acute (3) Cocaine use disorder Current Visit: Yes Status: Acute (4) Nicotine dependence Current Visit: Yes Status: Acute Qualifiers: Nicotine product type: cigarettes Substance use status: uncomplicated Qualified Code(s): F17.210 - Nicotine dependence, cigarettes, uncomplicated (5) Depressive disorder Current Visit: No Status: Chronic - Initial Treatment Plan Initial Treatment Plan: Psychoeducation provided. Detoxification in progress. Will order Belsomra 10mg HS. Benefits and side effects discussed. Verbal consent given.
--- NOTE | 2019-10-02 10:54 | PN ---
S CIWA - CIWA Score Nausea/Vomitin-No Nausea/No Vomiting Muscle Tremors: None Anxiety: 3 Agitation: 0-Normal Activity Paroxysmal Sweats: 3 Orientation: 0-Oriented Tacttile Disturbances: 0-None Auditory Disturbances: 0-None Visual Disturbances: 0-None Headache: 2-Mild CIWA-Ar Total Score: 8 BHS Progress Note (SOAP) Subjective: c/o anxiety, sweats, and headache. Objective: 10/02/19 10:52 Vital Signs 10/02/19 10/02/19 10/02/19 03:30 06:11 07:01 Temperature 98.2 F Pulse Rate 77 80 Respiratory 18 18 18 Rate Blood Pressure 171/86 H 149/80 O2 Sat by Pulse 95 Oximetry (%) 10/02/19 08:32 Temperature 97.5 F L Pulse Rate 79 Respiratory 18 Rate Blood Pressure 147/79 O2 Sat by Pulse Oximetry (%) Laboratory Last Values WBC 3.3 K/mm3 (4.0-10.0) L 10/01/19 14:15 RBC 4.34 M/mm3 (4.00-5.60) 10/01/19 14:15 Hgb 13.5 GM/dL (11.7-16.9) 10/01/19 14:15 Hct 39.4 % (35.4-49) 10/01/19 14:15 MCV 90.8 fl (80-96) 10/01/19 14:15 MCH 31.2 pg (25.7-33.7) 10/01/19 14:15 MCHC 34.3 g/dl (32.0-35.9) 10/01/19 14:15 RDW 15.2 % (11.9-15.9) 10/01/19 14:15 Plt Count 36 K/MM3 (134-434) L* D 10/01/19 14:15 MPV 9.7 fl (7.5-11.1) D 10/01/19 14:15 Manual Slide Review 10/01/19 14:15 Platelet Comment Giant platelets 10/01/19 14:15 Sodium 140 mmol/L (136-145) 10/01/19 14:15 Potassium 4.5 mmol/L (3.5-5.1) 10/01/19 14:15 Chloride 106 mmol/L (98-107) 10/01/19 14:15 Carbon Dioxide 26 mmol/L (21-32) 10/01/19 14:15 Anion Gap 7 MMOL/L (8-16) L 10/01/19 14:15 BUN 2.6 mg/dL (7-18) L* 10/01/19 14:15 Creatinine 0.6 mg/dL (0.55-1.3) 10/01/19 14:15 Est GFR (CKD-EPI)AfAm 155.28 10/01/19 14:15 Est GFR (CKD-EPI)NonAf 133.97 10/01/19 14:15 Random Glucose 282 mg/dL (74-106) H 10/01/19 14:15 Hemoglobin A1c % 8.6 % (4.2-6.3) H 10/01/19 14:15 Calcium 7.9 mg/dL (8.5-10.1) L 10/01/19 14:15 Total Bilirubin 1.6 mg/dL (0.2-1) H 10/01/19 14:15 AST 77 U/L (15-37) H 10/01/19 14:15 ALT 37 U/L (13-61) 10/01/19 14:15 Alkaline Phosphatase 276 U/L (45-117) H 10/01/19 14:15 Total Protein 6.3 g/dl (6.4-8.2) L 10/01/19 14:15 Albumin 2.7 g/dl (3.4-5.0) L 10/01/19 14:15 Syphilis Serology Non-reactive (NONREACTIVE) 10/01/19 14:15 HIV Ag/Ab Combo Qual Negative (NEGATIVE) 10/01/19 14:15 Labs noted with low plt count. Was already evaluated in the ED on 10/01/19. 10/02/19 10:53 10/02/19 10:54 Assessment: 10/02/19 10:52 AOX3, in no acute respiratory distress. Full ROM, ambulating in the unit. Withdrawal symptoms. Plan: continue detox.
[2019-10-02] MEDS: THIAMINE HCL 100 MG TABLET (FP) PO SCH (22:15)
[2019-10-02] MEDS: MELATONIN 5 MG TABLETS PO SCH (22:15)
[2019-10-02] MEDS: SUVOREXANT 10 MG TABLET PO PRN (22:16)
[2019-10-03] MEDS: chlordiazePOXIDE HCL 25 MG CAPSULE PO SCH ×4 (05:27→22:19)
[2019-10-03] MEDS: hydrOXYzine PAMOATE 25 MG CAPSULE (FP) PO SCH ×5 (05:27→22:18)
--- NOTE | 2019-10-03 09:34 | PN ---
[facility] CIWA - CIWA Score Nausea/Vomitin-No Nausea/No Vomiting Muscle Tremors: 2 Anxiety: 2 Agitation: 0-Normal Activity Paroxysmal Sweats: No Perspiration Orientation: 0-Oriented Tacttile Disturbances: 0-None Auditory Disturbances: 0-None Visual Disturbances: 1-Very Mild Sensitivity Headache: 0-None Present CIWA-Ar Total Score: 5 S Progress Note (SOAP) Subjective: 29 years old male admitted on 10/01/19 for alcohol withdrawal sx management treating with librium detox regiment Laboratory Tests 10/01/19 10/01/19 10/01/19 14:15 14:15 14:15 WBC 3.3 L RBC 4.34 Hgb 13.5 Hct 39.4 MCV 90.8 MCH 31.2 MCHC 34.3 RDW 15.2 Plt Count 36 L* D MPV 9.7 D Manual Slide Review Platelet Comment Giant platelets Sodium 140 Potassium 4.5 Chloride 106 Carbon Dioxide 26 Anion Gap 7 L BUN 2.6 L* Creatinine 0.6 Est GFR (CKD-EPI)AfAm 155.28 Est GFR (CKD-EPI)NonAf 133.97 Random Glucose 282 H Hemoglobin A1c % Calcium 7.9 L Total Bilirubin 1.6 H AST 77 H ALT 37 Alkaline Phosphatase 276 H Total Protein 6.3 L Albumin 2.7 L Syphilis Serology Non-reactive COVID-19 ([facility]) HIV Ag/Ab Combo Qual 10/01/19 10/01/19 10/01/19 14:15 14:15 14:50 WBC RBC Hgb Hct MCV MCH MCHC RDW Plt Count MPV Manual Slide Review Platelet Comment Sodium Potassium Chloride Carbon Dioxide Anion Gap BUN Creatinine Est GFR (CKD-EPI)AfAm Est GFR (CKD-EPI)NonAf Random Glucose Hemoglobin A1c % 8.6 H Calcium Total Bilirubin AST ALT Alkaline Phosphatase Total Protein Albumin Syphilis Serology COVID-19 ([facility]) Not detected HIV Ag/Ab Combo Qual Negative return from ER treated with low wbc low plt low plt discontinue motrin hgba1c elevation begin bgm with insulin coverage low Ca++ oscal supplement Objective: 10/03/19 09:40 Vital Signs - 24 hr 10/02/19 10/02/19 10/02/19 12:43 16:45 20:40 Temperature 97.8 F 98.0 F 97.1 F L Pulse Rate 78 82 85 Respiratory 18 16 16 Rate Blood Pressure 135/71 152/77 127/72 O2 Sat by Pulse 98 98 Oximetry (%) 10/03/19 10/03/19 10/03/19 00:30 03:30 06:19 Temperature 98.2 F Pulse Rate 78 Respiratory 18 18 18 Rate Blood Pressure 143/86 O2 Sat by Pulse 95 Oximetry (%) 10/03/19 08:45 Temperature 97.5 F L Pulse Rate 74 Respiratory 18 Rate Blood Pressure 117/72 O2 Sat by Pulse Oximetry (%) vital signs within acceptable range Assessment: 10/03/19 09:41 alcohol withdrawal Plan: librium regiment
[2019-10-03] MEDS: NICOTINE 14 MG/24 HOURS TOPICAL PATCH TD SCH (10:16)
[2019-10-03] MEDS: PRENATAL VITAMINS W/ FOLIC ACID TABLET (FP) PO SCH (10:17)
[2019-10-03] MEDS: NICOTINE POLACRILEX 2 MG GUM BUC PRN ×2 (10:19→17:40)
[2019-10-03] MEDS: CALCIUM 250MG/VIT-D 125 UNITS 1 COMBO TABLET PO SCH ×2 (10:21→22:18)
[2019-10-03] MEDS: INSULIN SLIDING SCALE (NOVOLOG) 1 VIAL SQ SCH ×3 (11:31→21:40)
[2019-10-03] MEDS: TETRAHYDROZOLINE HCL EYE DROPS OD PRN (17:38)
[2019-10-03] MEDS: MELATONIN 5 MG TABLETS PO SCH (22:18)
[2019-10-03] MEDS: THIAMINE HCL 100 MG TABLET (FP) PO SCH (22:18)
[2019-10-03] MEDS: SUVOREXANT 10 MG TABLET PO PRN (22:19)
[2019-10-04] MEDS ORDERED: chlordiazePOXIDE HCL 10 MG CAPSULE PO PRN
[2019-10-04] MEDS: chlordiazePOXIDE HCL 10 MG CAPSULE PO SCH ×4 (05:44→22:15)
[2019-10-04] MEDS: hydrOXYzine PAMOATE 25 MG CAPSULE (FP) PO SCH ×2 (05:44→10:11)
[2019-10-04] MEDS: INSULIN SLIDING SCALE (NOVOLOG) 1 VIAL SQ SCH ×4 (06:27→21:00)
--- NOTE | 2019-10-04 09:27 | PN ---
[facility] CIWA - CIWA Score Nausea/Vomitin-No Nausea/No Vomiting Muscle Tremors: 2 Anxiety: 0-No Anxiety, at Ease Agitation: 0-Normal Activity Paroxysmal Sweats: No Perspiration Orientation: 0-Oriented Tacttile Disturbances: 0-None Auditory Disturbances: 0-None Visual Disturbances: 1-Very Mild Sensitivity Headache: 0-None Present CIWA-Ar Total Score: 3 BHS Progress Note (SOAP) Subjective: 29 years old male admitted on 10/01/19 for alcohol withdrawal sx management treating with librium detox regiment received methadone 190mg po today feeling better discussing signs and symptoms of leukocytopenia and thrombocytopenia seek medical attention if necessary mr england agrees to follow up with methadone program for cytopenia monitoring encourage mr england to rule out diabetes II and begin antidiabetic oral medication mr england agrees to follow up with methadone program possible metformin for hyperglycemia management coordinate with hemotology Objective: 10/04/19 09:31 Vital Signs - 24 hr 10/03/19 10/03/19 10/03/19 12:57 16:32 20:40 Temperature 97.3 F L 97.5 F L 98.0 F Pulse Rate 97 H 78 80 Respiratory 20 16 18 Rate Blood Pressure 161/94 128/75 136/79 O2 Sat by Pulse 96 98 Oximetry (%) 10/04/19 10/04/19 10/04/19 00:25 03:25 05:40 Temperature 98.0 F Pulse Rate 77 Respiratory 18 18 18 Rate Blood Pressure 110/64 O2 Sat by Pulse 97 Oximetry (%) 10/04/19 08:34 Temperature 97.8 F Pulse Rate 77 Respiratory 20 Rate Blood Pressure 115/66 O2 Sat by Pulse Oximetry (%) Laboratory Tests 10/01/19 10/01/19 10/01/19 14:15 14:15 14:15 WBC 3.3 L RBC 4.34 Hgb 13.5 Hct 39.4 MCV 90.8 MCH 31.2 MCHC 34.3 RDW 15.2 Plt Count 36 L* D MPV 9.7 D Manual Slide Review Platelet Comment Giant platelets Sodium 140 Potassium 4.5 Chloride 106 Carbon Dioxide 26 Anion Gap 7 L BUN 2.6 L* Creatinine 0.6 Est GFR (CKD-EPI)AfAm 155.28 Est GFR (CKD-EPI)NonAf 133.97 POC Glucometer Random Glucose 282 H Hemoglobin A1c % Calcium 7.9 L Total Bilirubin 1.6 H AST 77 H ALT 37 Alkaline Phosphatase 276 H Total Protein 6.3 L Albumin 2.7 L Syphilis Serology Non-reactive COVID-19 ([facility]) HIV Ag/Ab Combo Qual 10/01/19 10/01/19 10/01/19 14:15 14:15 14:50 WBC RBC Hgb Hct MCV MCH MCHC RDW Plt Count MPV Manual Slide Review Platelet Comment Sodium Potassium Chloride Carbon Dioxide Anion Gap BUN Creatinine Est GFR (CKD-EPI)AfAm Est GFR (CKD-EPI)NonAf POC Glucometer Random Glucose Hemoglobin A1c % 8.6 H Calcium Total Bilirubin AST ALT Alkaline Phosphatase Total Protein Albumin Syphilis Serology COVID-19 ([facility]) Not detected HIV Ag/Ab Combo Qual Negative 10/03/19 10/03/19 10/03/19 10:43 16:24 21:36 WBC RBC Hgb Hct MCV MCH MCHC RDW Plt Count MPV Manual Slide Review Platelet Comment Sodium Potassium Chloride Carbon Dioxide Anion Gap BUN Creatinine Est GFR (CKD-EPI)AfAm Est GFR (CKD-EPI)NonAf POC Glucometer 247 176 191 Random Glucose Hemoglobin A1c % Calcium Total Bilirubin AST ALT Alkaline Phosphatase Total Protein Albumin Syphilis Serology COVID-19 ([facility]) HIV Ag/Ab Combo Qual 10/04/19 05:45 WBC RBC Hgb Hct MCV MCH MCHC RDW Plt Count MPV Manual Slide Review Platelet Comment Sodium Potassium Chloride Carbon Dioxide Anion Gap BUN Creatinine Est GFR (CKD-EPI)AfAm Est GFR (CKD-EPI)NonAf POC Glucometer 120 Random Glucose Hemoglobin A1c % Calcium Total Bilirubin AST ALT Alkaline Phosphatase Total Protein Albumin Syphilis Serology COVID-19 ([facility]) HIV Ag/Ab Combo Qual Assessment: 10/04/19 09:34 alcohol withdrawal 10/04/19 09:35 thrombocytopenia hyperglycemia Plan: librium regiment
[2019-10-04] MEDS: CALCIUM 250MG/VIT-D 125 UNITS 1 COMBO TABLET PO SCH ×2 (10:09→22:15)
[2019-10-04] MEDS: PRENATAL VITAMINS W/ FOLIC ACID TABLET (FP) PO SCH (10:09)
[2019-10-04] MEDS: NICOTINE POLACRILEX 2 MG GUM BUC PRN (10:10)
[2019-10-04] MEDS: NICOTINE 14 MG/24 HOURS TOPICAL PATCH TD SCH (10:10)
--- NOTE | 2019-10-04 13:52 | EKG ---
Test Reason : Blood Pressure : / mmHG Vent. Rate : 084 BPM Atrial Rate : 084 BPM P-R Int : 144 ms QRS Dur : 092 ms QT Int : 414 ms P-R-T Axes : 044 -05 020 degrees QTc Int : 489 ms NORMAL SINUS RHYTHM PROLONGED QT ABNORMAL ECG WHEN COMPARED WITH ECG OF 19-FEB-2019 15:34, QT HAS SHORTENED Confirmed by DORIS RODGERS MD ([id number]) on 10/04/2019 1:51:37 PM Referred By: RIAZ BELL Confirmed By:DORIS RODGERS MD
[2019-10-04] MEDS: SUVOREXANT 10 MG TABLET PO PRN (22:15)
[2019-10-04] MEDS: THIAMINE HCL 100 MG TABLET (FP) PO SCH (22:15)
[2019-10-04] MEDS: MELATONIN 5 MG TABLETS PO SCH (23:00)
[2019-10-05] MEDS ORDERED: chlordiazePOXIDE HCL 10 MG CAPSULE PO SCH (05:00)
[2019-10-05] MEDS: INSULIN SLIDING SCALE (NOVOLOG) 1 VIAL SQ SCH ×2 (06:13→10:06)
--- NOTE | 2019-10-05 08:42 | DS ---
[facility] Detox Discharge Summary Admission Date: 10/01/19 Discharge Date: 10/05/19 - History Present History: Alcohol Dependence Additional Comments: 29 years old male admitted on 10/01/19 for alcohol withdrawal sx management treated with librium detox regiment seen by psychiatrist lokesh initiated for insomnia transferred to ER for low platelet on 10/01/19 around 8 pm return around 11 pm monitoring for bleeding mr england is asymptomatic thrombocytopenia understands the risks of low platelets will follow up with pending sale to [facility] mr england prefers to leave the detox today instead of estimated discharge date of 10/06/19 that he can prepare himself for positive direction as alcohol recovery facility alert oriented x 3 speech clearly coherently ambulating with steady gaits cardiac s1s2 regular rate rhythm respiratory clear lung sounds bilaterally on auscultation extremities full range of motion Pertinent Past History: time for discharge 45 minutes benefits of librium completion was discussed with the patient ciwa 1 routine discharge is appropriated as per treatment team - Physical Exam Results Vital Signs: Vital Signs Temperature 98.2 F 10/05/19 06:03 Pulse Rate 77 10/05/19 06:03 Respiratory Rate 18 10/05/19 06:03 Blood Pressure 119/76 10/05/19 06:03 O2 Sat by Pulse Oximetry (%) 98 10/05/19 06:03 Pertinent Admission Physical Exam Findings: alcohol withdrawal Laboratory Tests 10/01/19 10/01/19 10/01/19 14:15 14:15 14:15 WBC 3.3 L RBC 4.34 Hgb 13.5 Hct 39.4 MCV 90.8 MCH 31.2 MCHC 34.3 RDW 15.2 Plt Count 36 L* D MPV 9.7 D Manual Slide Review Platelet Comment Giant platelets Sodium 140 Potassium 4.5 Chloride 106 Carbon Dioxide 26 Anion Gap 7 L BUN 2.6 L* Creatinine 0.6 Est GFR (CKD-EPI)AfAm 155.28 Est GFR (CKD-EPI)NonAf 133.97 POC Glucometer Random Glucose 282 H Hemoglobin A1c % Calcium 7.9 L Total Bilirubin 1.6 H AST 77 H ALT 37 Alkaline Phosphatase 276 H Total Protein 6.3 L Albumin 2.7 L Syphilis Serology Non-reactive COVID-19 ([facility]) HIV Ag/Ab Combo Qual 10/01/19 10/01/19 10/01/19 14:15 14:15 14:50 WBC RBC Hgb Hct MCV MCH MCHC RDW Plt Count MPV Manual Slide Review Platelet Comment Sodium Potassium Chloride Carbon Dioxide Anion Gap BUN Creatinine Est GFR (CKD-EPI)AfAm Est GFR (CKD-EPI)NonAf POC Glucometer Random Glucose Hemoglobin A1c % 8.6 H Calcium Total Bilirubin AST ALT Alkaline Phosphatase Total Protein Albumin Syphilis Serology COVID-19 ([facility]) Not detected HIV Ag/Ab Combo Qual Negative 10/03/19 10/03/19 10/03/19 10:43 16:24 21:36 WBC RBC Hgb Hct MCV MCH MCHC RDW Plt Count MPV Manual Slide Review Platelet Comment Sodium Potassium Chloride Carbon Dioxide Anion Gap BUN Creatinine Est GFR (CKD-EPI)AfAm Est GFR (CKD-EPI)NonAf POC Glucometer 247 176 191 Random Glucose Hemoglobin A1c % Calcium Total Bilirubin AST ALT Alkaline Phosphatase Total Protein Albumin Syphilis Serology COVID-19 ([facility]) HIV Ag/Ab Combo Qual 10/04/19 10/04/19 10/04/19 05:45 11:05 16:37 WBC RBC Hgb Hct MCV MCH MCHC RDW Plt Count MPV Manual Slide Review Platelet Comment Sodium Potassium Chloride Carbon Dioxide Anion Gap BUN Creatinine Est GFR (CKD-EPI)AfAm Est GFR (CKD-EPI)NonAf POC Glucometer 120 213 175 Random Glucose Hemoglobin A1c % Calcium Total Bilirubin AST ALT Alkaline Phosphatase Total Protein Albumin Syphilis Serology COVID-19 ([facility]) HIV Ag/Ab Combo Qual 10/04/19 10/05/19 20:32 05:02 WBC RBC Hgb Hct MCV MCH MCHC RDW Plt Count MPV Manual Slide Review Platelet Comment Sodium Potassium Chloride Carbon Dioxide Anion Gap BUN Creatinine Est GFR (CKD-EPI)AfAm Est GFR (CKD-EPI)NonAf POC Glucometer 201 134 Random Glucose Hemoglobin A1c % Calcium Total Bilirubin AST ALT Alkaline Phosphatase Total Protein Albumin Syphilis Serology COVID-19 ([facility]) HIV Ag/Ab Combo Qual mr england agrees to follow up with positive direction for hyperglycemia and thrombocytopenia - Treatment Hospital Course: Detox Protocol Followed, Detoxed Safely, Responded well, Discharged Condition Good, Rehab Referral Accepted Patient has Accepted a Rehab Referral to: positive direction - Medication Discharge Medications: Ambulatory Orders Folic Acid 1 mg PO DAILY 10/01/19 Thiamine Mononitrate [Vitamin B-1] 100 mg PO DAILY 10/01/19 - Diagnosis (1) Alcohol dependence with uncomplicated withdrawal Current Visit: Yes Status: Acute (2) Nicotine dependence Current Visit: Yes Status: Acute Qualifiers: Nicotine product type: cigarettes Substance use status: in withdrawal Qualified Code(s): F17.213 - Nicotine dependence, cigarettes, with withdrawal (3) HTN (hypertension) Current Visit: Yes Status: Chronic Qualifiers: Hypertension type: essential hypertension Qualified Code(s): I10 - Essential (primary) hypertension (4) Hyperglycemia Current Visit: Yes Status: Chronic (5) GERD (gastroesophageal reflux disease) Current Visit: Yes Status: Chronic Qualifiers: Esophagitis presence: without esophagitis Qualified Code(s): K21.9 - Gastro-esophageal reflux disease without esophagitis (6) Liver cirrhosis, alcoholic Current Visit: Yes Status: Chronic Qualifiers: Ascites presence: with ascites Qualified Code(s): K70.31 - Alcoholic cirrhosis of liver with ascites (7) Obese Current Visit: Yes Status: Chronic Qualifiers: Obesity type: unspecified obesity type Obesity classification: adult class 3 (BMI >= 40) Serious obesity comorbidity presence: unspecified whether serious comorbidity present Body mass index: BMI 40.0-44.9 Qualified Code(s): E66.01 - Morbid (severe) obesity due to excess calories; Z68.41 - Body mass index (BMI) 40.0-44.9, adult (8) Prolonged Q-T interval on ECG Current Visit: Yes Status: Chronic (9) Hypocalcemia Current Visit: Yes Status: Chronic - AMA Did Patient Leave Against Medical Advice: No CIWA Score - CIWA Score Nausea/Vomitin-No Nausea/No Vomiting Muscle Tremors: 1-None Visible, but [place] Anxiety: 0-No Anxiety, at Ease Agitation: 0-Normal Activity Paroxysmal Sweats: No Perspiration Orientation: 0-Oriented Tacttile Disturbances: 0-None Auditory Disturbances: 0-None Visual Disturbances: 0-None Headache: 0-None Present CIWA-Ar Total Score: 1
[2019-10-05 09:01] VITALS: BP 131/75; PULSE 76; TEMP 98
[2019-10-05] MEDS: CALCIUM 250MG/VIT-D 125 UNITS 1 COMBO TABLET PO SCH (10:06)
[2019-10-05] MEDS: PRENATAL VITAMINS W/ FOLIC ACID TABLET (FP) PO SCH (10:06)
[2019-10-05] MEDS: NICOTINE 14 MG/24 HOURS TOPICAL PATCH TD SCH (10:06)
[2019-10-06] MEDS ORDERED: chlordiazePOXIDE HCL 10 MG CAPSULE PO ONE (05:00)
== END 2019-10-05 09:14 | disposition home or self-care (01) | DRG 775 ==
LOC: YASAS 10:41 → Y3N 14:24
PROVIDERS: ADMIT Allergy & Immunology; ATTEND Allergy & Immunology
PROC: HZ2ZZZZ Detoxification Services for Substance Abuse Treatment (ICD-10-PCS; principal; 2019-10-01)
DX: F10.230 Alcohol dependence with withdrawal, uncomplicated (principal); F17.213 Nicotine dependence, cigarettes, with withdrawal; F19.282 Other psychoactive substance dependence with psychoactive substance-induced sleep disorder; F32.9 Major depressive disorder, single episode, unspecified; I10 Essential (primary) hypertension; R73.9 Hyperglycemia, unspecified; K21.9 Gastro-esophageal reflux disease without esophagitis; K70.31 Alcoholic cirrhosis of liver with ascites; E66.01 Morbid (severe) obesity due to excess calories; Z68.43 Body mass index [BMI] 50.0-59.9, adult; I45.81 Long QT syndrome; D69.6 Thrombocytopenia, unspecified; Z79.84 Long term (current) use of oral hypoglycemic drugs; Z87.19 Personal history of other diseases of the digestive system
CPT/HCPCS: 36415; 80053; 82962; 83036; 85027; 86780; 87389; 93005; 93010; U0003

== ENCOUNTER 2019-10-01 20:17 | Emergency (ER) | payer OTHER ==
[2019-10-01 20:25] VITALS: BP 129/75; PULSE 94; TEMP 99; BMI 33.6
[2019-10-01 21:20] LABS: BASO % 0.9 % (0-2.0); EOS % 5.8 % (0-4.5); HEMATOCRIT 39.6 % (35.4-49); HEMOGLOBIN 13.5 GM/dL (11.7-16.9); LYMPH % 40.3 % (8-40); MCHC 34.2 g/dl (32.0-35.9); MEAN CELL VOLUME 90.9 fl (80-96); MEAN PLT VOLUME 9.3 fl (7.5-11.1); MONO % 11.5 % (3.8-10.2); NEUT % 41.5 % (42.8-82.8); RBC 4.35 M/mm3 (4.00-5.60); RDW 15.4 % (11.9-15.9); WHITE BLOOD COUNT 2.8 K/mm3 (4.0-10.0)
[2019-10-01 21:30] LABS: PLATELET COUNT 36 K/MM3 (134-434)
[2019-10-01 21:48] LABS: ALBUMIN 2.7 g/dl (3.4-5.0); BILIRUBIN,TOTAL 1.4 mg/dL (0.2-1); CALCIUM 8.1 mg/dL (8.5-10.1); CREATININE 0.5 mg/dL (0.55-1.3); POTASSIUM 4.2 mmol/L (3.5-5.1); TOT PROT 6.3 g/dl (6.4-8.2)
[2019-10-01 22:20] LABS: BLOOD UREA NITROGEN 2.2 mg/dL (7-18)
== END 2019-10-01 23:25 | disposition home or self-care (01) ==
LOC: JER 20:17
DX: D69.6 Thrombocytopenia, unspecified (principal)
CPT/HCPCS: 36415; 80053; 85025; 99284-25

== ENCOUNTER 2019-11-21 10:55 | Emergency (ER) | payer SELFPAY ==
[2019-11-21 11:02] VITALS: TEMP 99; BMI 49.6
[2019-11-21] MEDS ORDERED: chlordiazePOXIDE HCL 25 MG CAPSULE PO ONE (11:27)
--- NOTE | 2019-11-21 11:31 | PDOC ---
History of Present Illness - General Chief Complaint: Alcohol intoxication Stated Complaint: WITHDRAW Time Seen by Provider: 11/21/19 11:20 - History of Present Illness Initial Comments: 11/21/19 11:28 29 years old with past medical history significant for alcohol abuse thrombocytopenia for which she is supposed to follow-up with business support professional on the outpatient presents to the emergency department requesting Librium. Patient s martita he started to drink again was starting to feel withdrawal symptoms does not want to go to detox as he wants to try to keep his current job and states that he feels that if he had 1 to 2 pills of Librium he would be able to manage his symptoms and continue with his job He is scheduled to work tomorrow not today He denies fever chills headache chest pain shortness of breath no bleeding from anywhere no bleeding from his gums lips nose mouth no hematochezia or hematemesis complaining of mild shaky withdrawal type symptoms Past History - Medical History Allergies/Adverse Reactions: Allergies Allergy/AdvReac Type Severity Reaction Status Date / Time No Known Allergies Allergy Verified 11/21/19 11:02 Home Medications: Ambulatory Orders Folic Acid 1 mg PO DAILY 10/01/19 Thiamine Mononitrate [Vitamin B-1] 100 mg PO DAILY 10/01/19 Anemia: No Asthma: No Cancer: No Cardiac Disorders: No CVA: No COPD: No CHF: No DVT: No Dementia: No Diabetes: No GI Disorders: Yes Disorders: No HTN: Yes Hypercholesterolemia: No Kidney Stones: No Liver Disease: Yes (cirrohsis) Seizures: No Thyroid Disease: No Lung CA: No - Surgical History Abdominal Surgery: Yes (banding of esophageal varices) Appendectomy: No Cardiac Surgery: No Cholecystectomy: No Gastric Stapling: No Lung Surgery: No Neurologic Surgery: No Orthopedic Surgery: No - Reproductive History Testicular Surgery: No - Immunization History Immunization Up to Date: No - Psycho-Social/Smoking History Smoking Status: No Smoking History: Current every day smoker Have you smoked in the past 12 months: Yes Number of Cigarettes Smoked Daily: 20 Cigars Per Day: 0 Information on smoking cessation initiated: No 'Breaking Loose' booklet given: 10/01/19 - Substance Abuse Hx (Audit-C & DAST Scrn) How often the patient has a drink containing alcohol: 4 0r more times/wk Number of drinks the patient has on a typical day: 7 to 9 How often the patient has six or more drinks on one occasion: Daily or almost daily Score: In Men: 4 or > Positive; In Women: 3 or > Positive: 11 Screen Result (Pos requires Nsg. Audit-10AR): Positive In the last yr the pt used illegal drug/Rx for NonMed reason: No Score: Yes response is considered Positive: 0 Screen Result (Positive result requires Nsg. DAST-10): Negative Review of Systems - Review of Systems Comments:: 11/21/19 11:28 ROS: A complete review of 10 out of 10 review of systems is taken and is negative apart from what is previously mentioned below and in the HPI. *Physical Exam - Vital Signs Last Vital Signs Temp Pulse Resp BP Pulse Ox 99 F 77 18 108/56 L 97 11/21/19 10:57 11/21/19 10:57 11/21/19 10:57 11/21/19 10:57 11/21/19 10:57 - Physical Exam 11/21/19 11:29 Vitals: Triage Vital signs reviewed the morning of: General Appearance: No acute distress, well nourished well developed, Head: Atraumatic, Eyes: Pupils equal reactive round, extraocular movement intact Throat: Posterior oropharynx without erythema, mucous membranes moist, Neck: Supple; no Nucal rigidity Chest Wall: Nontender Cardiac: Regular rate and rhythym, no murmurs, no rubs, no gallops, Lungs: Clear to auscultation bilateral, good air movement bilaterally, Abdomen: Soft, non distended, normal bowel sounds, non tender to palpation Extremities: Full range of motion to all extremities, no cyanosis, clubbing, or edema Skin: Warm and dry, no rashes or lesions, no rash, no petechiae Neuro: AOX3; cranial Nerves 2-12 grossly intact, strength intact to all extremities, sensation intact to all extremities, gait normal, mild hand tremor Psych: Normal mood, normal affect Medical Decision Making - Medical Decision Making 11/21/19 11:29 Well-appearing no apparent distress very mild withdrawal symptoms CIWA score 6 Patient requesting Librium we will treat with 50 mg now 50 mg later he is advised that should his symptoms worsen he can always return to the ED or proceed to detox for further management Patient states he has a PCP who he will also follow-up with this week and 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 Discharge - Discharge Information Problems reviewed: Yes Clinical Impression/Diagnosis: Alcohol withdrawal Qualifiers: Complication of substance-induced condition: uncomplicated Qualified Code(s): F10.230 - Alcohol dependence with withdrawal, uncomplicated Disposition: HOME - Admission No - Follow up/Referral Referrals: Tran Barr NP [Primary Care Provider] - - Patient Discharge Instructions Patient Printed Discharge Instructions: DI for Alcohol Abuse Additional Instructions: Please stop drinking. Librium as discussed. If your symptoms worsen please proceed to detox at [facility] as discussed. Return to ED for any concerns. Follow-up with your doctor and business support professional this week. - Post Discharge Activity
[2019-11-21] MEDS ORDERED: chlordiazePOXIDE HCL 25 MG CAPSULE ONE (11:33)
[2019-11-21 11:50] VITALS: BP 121/69; PULSE 78
== END 2019-11-21 11:50 | disposition home or self-care (01) ==
LOC: JER 10:55
DX: F10.230 Alcohol dependence with withdrawal, uncomplicated (principal)
CPT/HCPCS: 99283-25

== ENCOUNTER 2019-11-28 21:26 | Emergency (ER) | payer SELFPAY ==
[2019-11-28 21:34] VITALS: BMI 48.0
[2019-11-28] MEDS ORDERED: chlordiazePOXIDE HCL 25 MG CAPSULE PO ONE (22:23)
[2019-11-28] MEDS ORDERED: chlordiazePOXIDE HCL 25 MG CAPSULE ONE (22:29)
--- NOTE | 2019-11-28 22:46 | PDOC ---
History of Present Illness - General Chief Complaint: Alcohol intoxication Stated Complaint: FEVER Time Seen by Provider: 11/28/19 22:11 - History of Present Illness Initial Comments: 11/28/19 22:52 29yo M with history of alcohol use disorder and morbid obesity presenting after a forehead temperature of 101 at work requesting a Covid swab so that he can go back to work, also now complaining of withdrawal symptoms. 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 Also reports mild sore throat for 2 days, but denies congestion, cough, diarrhea, sick contacts, recent travel. He also states he has around 12 drinks per day, and had 4 several hour prior. He now complains of tremors and states he is withdrawing. States he has had nausea and a headache since earlier today, but has had this since before his last drink PMH/PSH: as above Home Medication List Medication Instructions Recorded Confirmed Type Folic Acid 1 mg PO DAILY 10/01/19 10/01/19 History Thiamine Mononitrate [Vitamin B-1] 100 mg PO DAILY 10/01/19 10/01/19 History Allergies Allergy/AdvReac Type Severity Reaction Status Date / Time No Known Allergies Allergy Verified 11/21/19 11:02 ROS GENERAL/CONSTITUTIONAL: repoted forehead temp of 101. no chills. No weakness. HEAD, EYES, EARS, NOSE AND THROAT: No change in vision. No ear pain or discharge. +sore throat. CARDIOVASCULAR: No chest pain or shortness of breath RESPIRATORY: No cough, wheezing, or hemoptysis. GASTROINTESTINAL: nausea. Nop vomiting, diarrhea or constipation. GENITOURINARY: No dysuria, frequency, or change in urination. MUSCULOSKELETAL: No joint or muscle swelling or pain. No neck or back pain. SKIN: No rash NEUROLOGIC: headache. no vertigo, loss of consciousness, or change in strength/sensation. ENDOCRINE: No increased thirst. weight gain HEMATOLOGIC/LYMPHATIC: No anemia, easy bleeding, or history of blood clots. ALLERGIC/IMMUNOLOGIC: No hives or skin allergy. PE GENERAL: Awake, alert, and fully oriented, in no acute distress HEAD: No signs of trauma, normocephalic, atraumatic EYES: PERRLA, EOMI, sclera anicteric, conjunctiva clear ENT: Auricles normal inspection, hearing grossly normal, nares patent, oropharynx clear without exudates. Moist mucosa NECK: Normal ROM, supple, no lymphadenopathy, JVD, or masses LUNGS: No distress, speaks full sentences, clear to auscultation bilaterally HEART: Regular rate and rhythm, normal S1 and S2, no murmurs, rubs or gallops, peripheral pulses normal and equal bilaterally. ABDOMEN: Soft, nontender, normoactive bowel sounds. No guarding, no rebound. No masses EXTREMITIES : Normal inspection, Normal range of motion. NEUROLOGICAL: Cranial nerves II through XII grossly intact. Normal speech, no focal sensorimotor deficits SKIN: Warm, Dry, normal turgor, no rashes or lesions noted Vital Signs Temp 98.4 F 11/28/19 21:28 Pulse 110 H 11/28/19 21:28 Resp 19 11/28/19 21:28 BP 126/61 11/28/19 21:28 Pulse Ox 95 11/28/19 21:28 MDM: 29yo M with history of alcohol use disorder and morbid obesity presenting after a forehead temperature of 101 at work requesting a Covid swab so that he can go back to work, also now complaining of withdrawal symptoms. Afebrile in the ED, but tachycardic to 110. Likely intentional tremors on exam, and no tongue fasciculations. CIWA 4. Very low suspicion for Covid. -Explained that we do not test for not admitted patients, and that he can schedule a Covid test tomorrow if he is concerned or his work requires it -Work note explaining that we are not concerned for Covid and he was afebrile here -librium 50mg once in ED. Will DC home on 25mg BID x3 days and instructions to f/u with PCP in three days as patient refused a formal rehab program for fear of losing his job -EKG -fingerstick 11/28/19 23:24 EKG: sinus tachycardia, rate 101, normal axis and intervals, no ST or T wave changes Fingerstick: 147 Patient reports improvement in withdrawal symptoms after 50mg librium. Still tachycardic to 101. DC home on 25mg librium BID x3 days for home detox regimen with strict instructions not to consume any alcohol while taking librium. PCP follow up in 3 days. Strict return precautions. Patient agrees to plan. Past History - Medical History Allergies/Adverse Reactions: Allergies Allergy/AdvReac Type Severity Reaction Status Date / Time No Known Allergies Allergy Verified 11/21/19 11:02 Home Medications: Ambulatory Orders Folic Acid 1 mg PO DAILY 10/01/19 Thiamine Mononitrate [Vitamin B-1] 100 mg PO DAILY 10/01/19 Chlordiazepoxide [Librium -] 25 mg PO BID #6 capsule MDD 2 11/28/19 Chlordiazepoxide [Librium -] 25 mg PO BID #6 capsule MDD 50 11/28/19 Anemia: No Asthma: No Cancer: No Cardiac Disorders: No CVA: No COPD: No CHF: No DVT: No Dementia: No Diabetes: No GI Disorders: Yes Disorders: No HTN: Yes Hypercholesterolemia: No Kidney Stones: No Liver Disease: Yes (cirrohsis) Seizures: No Thyroid Disease: No Lung CA: No - Surgical History Abdominal Surgery: Yes (banding of esophageal varices) Appendectomy: No Cardiac Surgery: No Cholecystectomy: No Gastric Stapling: No Lung Surgery: No Neurologic Surgery: No Orthopedic Surgery: No - Reproductive History Testicular Surgery: No - Immunization History Immunization Up to Date: No - Psycho-Social/Smoking History Smoking Status: No Smoking History: Current every day smoker Have you smoked in the past 12 months: Yes Number of Cigarettes Smoked Daily: 20 Cigars Per Day: 0 Information on smoking cessation initiated: No 'Breaking Loose' booklet given: 10/01/19 - Substance Abuse Hx (Audit-C & DAST Scrn) How often the patient has a drink containing alcohol: 4 0r more times/wk Number of drinks the patient has on a typical day: 7 to 9 How often the patient has six or more drinks on one occasion: Daily or almost daily Score: In Men: 4 or > Positive; In Women: 3 or > Positive: 11 Screen Result (Pos requires Nsg. Audit-10AR): Positive In the last yr the pt used illegal drug/Rx for NonMed reason: No Score: Yes response is considered Positive: 0 Screen Result (Positive result requires Nsg. DAST-10): Negative *Physical Exam - Vital Signs Last Vital Signs Temp Pulse Resp BP Pulse Ox 98.4 F 110 H 19 126/61 95 11/28/19 21:28 11/28/19 21:28 11/28/19 21:28 11/28/19 21:28 11/28/19 21:28 ED Treatment Course - Medications Given in the ED: ED Medications Discontinued Medications Generic Name Dose Route Start Last Admin Trade Name Adalid PRShira Reason Stop Dose Admin Chlordiazepoxide HCl 50 mg 11/28/19 22:23 11/28/19 22:30 Librium - PO 11/28/19 22:24 50 mg ONCE ONE Administration Discharge - Discharge Information Problems reviewed: Yes Clinical Impression/Diagnosis: Alcohol dependence with uncomplicated withdrawal Condition: Stable Disposition: HOME - Admission No - Additional Discharge Information Prescriptions: Chlordiazepoxide [Librium -] 25 mg PO BID #6 capsule MDD 50 Chlordiazepoxide [Librium -] 25 mg PO BID #6 capsule MDD 2 - Follow up/Referral Referrals: Tran Barr NP [Primary Care Provider] - - Patient Discharge Instructions Patient Printed Discharge Instructions: DI for Alcohol Abuse Additional Instructions: You were seen in the ED for a reported fever of 101 at work by forehead temp and for withdrawal symptoms. We took your vitals and did a physical exam. You did not have a fever, but you did have a mildly elevated hear rate. There is very low suspicion that you have Covid-19, and we gave you a work note stating this. You can call [phone] tomorrow to schedule a same-day test from 9am to 10pm if you require one for work. We gave you 50mg of librium for your withdrawal symptoms, and wrote you a prescription for 25mg of librium twice per day for three days. You cannot drink alcohol while on this medication. Please follow up with your primary care doctor in three days. Please return to the ER if you experience fever, chills, vomiting, difficulty breathing, or any other reason. Here are a list of inpatient and outpatient facilities: [address] [address] [facility] [address] [place] [address] Hours of Operation 9 a.m. - 8 p.m. [facility] [address] [place], [place] [address] 24 Hour Facility [phone] Directions Located on the corner of [address] Convenient Subway Stops [address] Stops Subway Train Lines A, C, B, D, 1 at [facility] N, R, Q at [address] Bus Lines M57, M31, M11 [facility] is a Substance Abuse Rehab Services in [place], [place] Address: [address] [place] [address], [address] Intake Line: [phone] Website: [email or web address] Primary Focus: Substance Abuse Rehab Services Treatment Type: Hospital inpatient, Hospital inpatient detoxification, General Hospital(including [place] hospital) Treatment Approaches: No information available, please contact the facility directly. [facility] Abuse Detox Center located in [place], [place]. Address: [address] [place] [address] , [address] - Post Discharge Activity Work/Back to School Note: Back to Work
[2019-11-29] MEDS ORDERED: SODIUM CHLORIDE 0.9% 500 ML INFUS.BAG IV ONE (00:01)
[2019-11-29 00:14] VITALS: BP 125/68; PULSE 99; TEMP 97.9
--- NOTE | 2019-11-29 18:15 | EKG ---
Test Reason : Blood Pressure : / mmHG Vent. Rate : 101 BPM Atrial Rate : 101 BPM P-R Int : 148 ms QRS Dur : 096 ms QT Int : 372 ms P-R-T Axes : 034 -10 018 degrees QTc Int : 482 ms SINUS TACHYCARDIA OTHERWISE NORMAL ECG WHEN COMPARED WITH ECG OF 04-OCT-2019 11:50, NO SIGNIFICANT CHANGE WAS FOUND Confirmed by NIKHIL BLANCO MD ([id number]) on 11/29/2019 6:15:07 PM Referred By: Confirmed By:NIKHIL BLANCO MD
--- NOTE | 2019-11-29 23:48 | PDOC ---
Documentation entered by Armin Yepez SCRIBE, acting as scribe for Tristian Smith DO. Tristian Smith DO: This documentation has been prepared by the Lucho singh Alexis, SCRIBE, under my direction and personally reviewed by me in its entirety. I confirm that the documentation accurately reflects all work, treatment, procedures, and medical decision making performed by me. Attending Attestation - Resident Resident Name: JyothiHuey - ED Attending Attestation I have performed the following: I have examined & evaluated the patient, The case was reviewed & discussed with the resident, I agree w/resident's findings & plan, Exceptions are as noted - HPI HPI: 11/28/19 23:16 The patient is a 29 year old male with HTN and daily alcohol use coming in today because he was found to have a forehead temp of 101 while working. The patient is complaining of a mild sore throat. The patient was told he couldn't return to work without a negative covid test. He states he feels he is in alcohol withdrawal and his last drink was 3 hrs ago. The patient requested librium and covid test. He also reports feeling anxiousNo other complaints. No cough, shortness of breath. - Physicial Exam PE: 11/28/19 23:15 mild subtle tremors No tongue fasciculations Appears to be in no distress Cardiopulmonary normal - Medical Decision Making 11/28/19 23:15 29 year old male here for sore throat, fever, and alcohol withdrawal Plan for librium, counseling, outpatient detox, and advise to follow up with rapid covid testing site Glucose test 11/28/19 23:50 EKG sinus tachycardia 101 no acute ischemia normal interval time 23:43 Discharge - Discharge Information Problems reviewed: Yes Clinical Impression/Diagnosis: Alcohol dependence with uncomplicated withdrawal Condition: Stable Disposition: HOME - Follow up/Referral Referrals: Tran Barr NP [Primary Care Provider] - - Patient Discharge Instructions Patient Printed Discharge Instructions: DI for Alcohol Abuse Additional Instructions: You were seen in the ED for a reported fever of 101 at work by forehead temp and for withdrawal symptoms. We took your vitals and did a physical exam. You did not have a fever, but you did have a mildly elevated hear rate. There is very low suspicion that you have Covid-19, and we gave you a work note stating this. You can call [phone] tomorrow to schedule a same-day test from 9am to 10pm if you require one for work. We gave you 50mg of librium for your withdrawal symptoms, and wrote you a prescription for 25mg of librium twice per day for three days. You cannot drink alcohol while on this medication. Please follow up with your primary care doctor in three days. Please return to the ER if you experience fever, chills, vomiting, difficulty breathing, or any other reason. Here are a list of inpatient and outpatient facilities: [address] [id number] [facility] [address] [address] Hours of Operation 9 a.m. - 8 p.m. [facility] [address] [address] 24 Hour Facility [phone] Directions Located on the corner of [address] Convenient Subway Stops [address] Stops Subway Train Lines A, C, B, D, [address] [facility] N, R, Q at [facility] [address] Bus Lines M57, M31, M11 [facility] In[facility] is a Substance Abuse Rehab Services in [place], [place] Address: [address] [place] [address], [address] Intake Line: [phone] Website: [email or web address] Primary Focus: Substance Abuse Rehab Services Treatment Type: Hospital inpatient, Hospital inpatient detoxification, General Hospital(including [place] hospital) Treatment Approaches: No information available, please contact the facility directly. [facility] Substance Abuse Detox Center located in [place], [place]. Address: [address] [place] [address] , [address] - Post Discharge Activity Work/Back to School Note: Back to Work
== END 2019-11-29 00:10 | disposition home or self-care (01) ==
LOC: JER 21:26
DX: F10.239 Alcohol dependence with withdrawal, unspecified (principal)
CPT/HCPCS: 82962; 93005; 93010; 99284-25

== ENCOUNTER 2019-12-28 12:39 | Inpatient (IN) | payer SELFPAY ==
--- NOTE | 2019-12-28 13:15 | BHS.RME ---
Substance Use & Tx History - Substance Use History Alcohol Substance amount: 10 24 oz beers Frequency of use: Daily Substance route: Oral Date of Last Use: 12/28/19 (started age 14 last drank at 8AM) Cocaine- Powder Substance amount: $50 Frequency of use: Daily Substance route: Inhalation (ex: sniffing or snorting) Date of Last Use: 12/27/19 Nicotine Substance amount: 1/2 pack Frequency of use: Daily Substance route: Smoking Date of Last Use: 12/28/19 Physical/Psych/Mental Status - Behavior General Behavior: Increased activity (restlessness, agitation) Eye Contact: Normal - Cooperativeness Cooperativeness: Cooperative - Thinking Thought Processes: Tight, Logical, Goal Directed - Physical Health Problems Is patient presently having any pain?: No Does patient presently have any injuries (include location): No Does patient currently have a fever: No Is patient : No CIWA Nausea/Vomitin Muscle Tremors: 3 Anxiety: 2 Agitation: 1-Slight > Activity Paroxysmal Sweats: 2 Orientation: 1-Uncertain about Date Tacttile Disturbances: 0-None Auditory Disturbances: 0-None Visual Disturbances: 0-None Headache: 0-None Present (patient is intoxicated at this time only mild withdrawals) CIWA-Ar Total Score: 11
--- NOTE | 2019-12-28 15:36 | HP ---
CIWA Score Nausea/Vomitin Muscle Tremors: 3 Anxiety: 2 Agitation: 1-Slight > Activity Paroxysmal Sweats: 2 Orientation: 1-Uncertain about Date Tacttile Disturbances: 0-None Auditory Disturbances: 0-None Visual Disturbances: 0-None Headache: 0-None Present (patient is intoxicated at this time only mild withdrawals) CIWA-Ar Total Score: 11 - Admission Criteria OASAS Guidelines: Admission for Medically Managed Detox: Requires at least one of the followin. CIWA greater than 12 2. Seizures within the past 24 hours 3. Delirium tremens within the past 24 hours 4. Hallucinations within the past 24 hours 5. Acute intervention needed for co occurring medical disorder 6. Acute intervention needed for co occurring psychiatric disorder 7. Severe withdrawal that cannot be handled at a lower level of care (continued vomiting, continued diarrhea, abnormal vital signs) requiring intravenous medication and/or fluids 8. Admitting History and Physical - Past Medical History Hepatobiliary: Yes: Cirrhosis (Alcoolic), Other (Alcoholic hepatitis, esophageal varices s/p EVL (non-bleeding) 05/25) - Smoking History Smoking history: Current every day smoker Have you smoked in the past 12 months: Yes Aproximately how many cigarettes per day: 20 - Alcohol/Substance Use Hx Alcohol Use: Yes History of Substance Use: reports: None - Social History ADL: Independent History of Recent Travel: No Admission [facility] Chief Complaint: " I want to stop drinking, I relapsed after I was here in september 2019." Allergies/Adverse Reactions: Allergies Allergy/AdvReac Type Severity Reaction Status Date / Time No Known Allergies Allergy Verified 11/21/19 11:02 History of Present Illness: 29 year old male with history alcohol dependence with intoxication and early withdrawals. PMH is significant for obesity and hypertension. 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 Cocaine- Powder Substance amount: $50 Frequency of use: Daily Substance route: Inhalation (ex: sniffing or snorting) Date of Last Use: 12/27/19 Nicotine Substance amount: 1/2 pack Frequency of use: Daily Substance route: Smoking Date of Last Use: 12/28/19 PMH: HTN, Obesity Psurg: None Psych: Depression (stopped meds 1 year ago) Lives [place] with mother No legal issues pending. ASHA=0.298 CIWA=11 patient meets criteria for detox as he has had failures in the past and has poor recovery environment and has medical and psychiatric co-morbidities. Exam Limitations: No Limitations - Ebola screening Have you traveled outside of the country in the last 21 days: No Have you had contact with anyone from an Ebola affected area: No Have you been sick,other than usual withdrawal symptoms: No Do you have a fever: No - Review of Systems Constitutional: Diaphoresis EENT: reports: No Symptoms Reported Respiratory: reports: No Symptoms reported Cardiac: reports: No Symptoms Reported GI: reports: No Symptoms Reported : reports: No Symptoms Reported Musculoskeletal: reports: No Symptoms Reported Integumentary: reports: No Symptoms Reported Neuro: reports: No Symptoms reported Endocrine: reports: No Symptoms Reported Hematology: reports: No Symptoms Reported Psychiatric: reports: Judgement Intact, Mood/Affect Appropiate, Orientated x3, Agitated, Anxious Other Systems: Reviewed and Negative Patient History - Patient Medical History Hx Anemia: No Hx Asthma: No Hx Chronic Obstructive Pulmonary Disease (COPD): No Hx Cancer: No Hx Cardiac Disorders: No Hx Congestive Heart Failure: No Hx Hypertension: Yes Hx Hypercholesterolemia: No Hx Pacemaker: No HX Cerebrovascular Accident: No Hx Seizures: No Hx Dementia: No Hx Diabetes: No Hx Gastrointestinal Disorders: Yes Hx Liver Disease: Yes (cirrohsis) Hx Genitourinary Disorders: No Hx Sexually Transmitted Disorders: No Hx Renal Disease (ESRD): No Hx Thyroid Disease: No Hx Human Immunodeficiency Virus (HIV): No Hx Hepatitis C: No Hx Depression: No Hx Suicide Attempt: No Hx Bipolar Disorder: No Hx Schizophrenia: No - Patient Surgical History Past Surgical History: Yes Hx Neurologic Surgery: No Hx Cataract Extraction: No Hx Cardiac Surgery: No Hx Lung Surgery: No Hx Breast Surgery: No Hx Breast Biopsy: No Hx Abdominal Surgery: Yes (banding of esophageal varices) Hx Appendectomy: No Hx Cholecystectomy: No Hx Genitourinary Surgery: No Hx Section: No Hx Orthopedic Surgery: No Hx Hysterectomy: No Anesthesia Reaction: No - PPD History Previous Implant?: Yes Documented Results: Negative w/o proof Implanted On Prior [facility] Admission?: Yes Date: 10/03/19 Results: NEGATIVE PPD to be Administered?: No - Smoking Cessation Smoking history: Current every day smoker Have you smoked in the past 12 months: Yes Aproximately how many cigarettes per day: 20 Cigars Per Day: 0 Hx Chewing Tobacco Use: No Initiated information on smoking cessation: Yes 'Breaking Loose' booklet given: 12/28/19 - Substances abused Alcohol Substance route: Oral Frequency: Daily (10 24 oz beert) Amount used: 10 24 oz beers Age of first use: 14 Date of last use: 12/28/19 Cocaine Substance route: Inhalation Frequency: 3-6 times per week Amount used: $50 Age of first use: 27 Date of last use: 12/24/19 Buprenorphine Substance route: Oral Frequency: 1-3 times last 30 days Amount used: 1 8mg strip Age of first use: 28 Date of last use: 12/25/19 Admission Physical Exam S - Physical General Appearance: Yes: Tremorous, Irritable, Sweating, Anxious HEENTM: Yes: EOMI, Hearing grossly Normal, Normal ENT Inspection, Normocephalic, Normal Voice, PELON, Pharynx Normal, Tm's normal Respiratory: Yes: Chest Non-Tender, Lungs Clear, Normal Breath Sounds, No Respiratory Distress, No Accessory Muscle Use Neck: Yes: No masses,lesions,Nodules, Supple, Trachea in good position Breast: Yes: Within Normal Limits Cardiology: Yes: Regular Rhythm, S1, S2, Tachycardia Abdominal: Yes: Normal Bowel Sounds, Non Tender, Soft, Protuberent Genitourinary: Yes: Within Normal Limits Back: Yes: Normal Inspection Musculoskeletal: Yes: full range of Motion, Gait Steady, Pelvis Stable Extremities: Yes: Normal Capillary Refill, Normal Inspection, Normal Range of Motion, Non-Tender Neurological: Yes: gore inserter II-XII NML intact, Fully Oriented, Alert, Motor Strength 5/5, Normal Mood/Affect, Normal Response Integumentary: Yes: Normal Color, Warm Lymphatic: Yes: Within Normal Limits - Diagnostic (1) Alcohol dependence with uncomplicated withdrawal Current Visit: Yes Status: Acute (2) Elevated liver enzymes Current Visit: Yes Status: Acute (3) Nicotine dependence Current Visit: Yes Status: Acute Qualifiers: Nicotine product type: cigarettes Substance use status: in withdrawal Qualified Code(s): F17.213 - Nicotine dependence, cigarettes, with withdrawal (4) Depressive disorder Current Visit: Yes Status: Chronic (5) GERD (gastroesophageal reflux disease) Current Visit: Yes Status: Chronic Qualifiers: Esophagitis presence: without esophagitis Qualified Code(s): K21.9 - Gastro-esophageal reflux disease without esophagitis (6) HTN (hypertension) Current Visit: Yes Status: Chronic Qualifiers: Hypertension type: essential hypertension Qualified Code(s): I10 - Essential (primary) hypertension (7) Hyperglycemia Current Visit: Yes Status: Chronic Cleared for Admission [facility] - Detox or Rehab S Level of Care: Medically Managed Claeared for Rehab Admission: No Screened but not Admitted - Documentation of Visit Screened but not Admitted: No Breathalyzer - Breathalyzer Breathalyzer: 0.298 Vital Signs - Vital Signs Vital signs refused: No Temperature: 97.9 F Pulse Rate: 94 Respiratory Rate: 18 Blood Pressure: 134/80 BP Location: Left Arm Blood Pressure position: Sitting - Height Height: 5 ft 4 in - Weight Weight: 295 lb Weight measurement method: Standing scale - BMI Body Mass Index (BMI): 50.6 - Bowel Function Bowel Movement: No Urine Drug Screen - Test Device Lot number: [id number] Expiration date: 07/13/21 - Control Is test valid?: Yes - Results Drug screen NEGATIVE: No Urine drug screen results: BZO-Benzodiazepines, BUP-Suboxone Inpatient Rehab Admission - Rehab Decision to Admit Inpatient rehab admission?: No
[2019-12-28 15:41] VITALS: BMI 50.6
[2019-12-28] MEDS ORDERED: MAGNESIUM HYDROX 2400MG/30ML ORAL SUSPENSION 30 ML CUP PO PRN (15:47)
[2019-12-28] MEDS ORDERED: BISMUTH SUBSALICYLATE 262 MG/15 ML BTL PO PRN (15:47)
[2019-12-28] MEDS ORDERED: MENTHOL/PHENOL 1 EACH UD MM PRN (15:47)
[2019-12-28] MEDS ORDERED: MAGNESIUM CITRATE 300 ML BOTTLE PO PRN (15:47)
[2019-12-28] MEDS ORDERED: diazePAM 5 MG TABLET PO PRN (15:47)
[2019-12-28] MEDS ORDERED: IBUPROFEN 400 MG TABLET (FP) PO PRN (15:47)
[2019-12-28] MEDS ORDERED: MAG HYDROX/AL HYDROX/SIMETH 30 ML UNIT-DOSE CUP PO PRN (15:47)
[2019-12-28] MEDS ORDERED: ACETAMINOPHEN 325 MG TABLET (FP) PO PRN ×2 (15:47)
[2019-12-28] MEDS: diazePAM 5 MG TABLET PO SCH ×2 (17:01→22:20)
[2019-12-28] MEDS: PRENATAL VITAMINS W/ FOLIC ACID TABLET (FP) PO SCH (17:01)
[2019-12-28] MEDS: hydrOXYzine PAMOATE 25 MG CAPSULE (FP) PO SCH ×2 (17:01→22:20)
[2019-12-28] MEDS: NICOTINE 7 MG/24 HOURS TOPICAL PATCH TD SCH (17:02)
[2019-12-28] MEDS: NICOTINE POLACRILEX 2 MG GUM BUC PRN ×2 (17:02→22:22)
[2019-12-28] MEDS: THIAMINE HCL 100 MG TABLET (FP) PO SCH (22:20)
[2019-12-28] MEDS: MELATONIN 5 MG TABLETS PO SCH (22:20)
[2019-12-29] MEDS: hydrOXYzine PAMOATE 25 MG CAPSULE (FP) PO SCH (06:09)
[2019-12-29] MEDS: diazePAM 5 MG TABLET PO SCH ×4 (06:09→22:49)
[2019-12-29] MEDS ORDERED: hydrOXYzine PAMOATE 25 MG CAPSULE (FP) PO PRN (08:47)
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
[2019-12-29] MEDS: PRENATAL VITAMINS W/ FOLIC ACID TABLET (FP) PO SCH (10:31)
[2019-12-29] MEDS: NICOTINE 7 MG/24 HOURS TOPICAL PATCH TD SCH (10:31)
[2019-12-29] MEDS: METHOCARBAMOL 500 MG TABLET PO PRN ×2 (10:31→17:53)
[2019-12-29 10:47] LABS: HEMATOCRIT 35.9 % (35.4-49); HEMOGLOBIN 12.7 GM/dL (11.7-16.9); MCH 33.3 pg (25.7-33.7); MCHC 35.2 g/dl (32.0-35.9); MEAN CELL VOLUME 94.6 fl (80-96); MEAN PLT VOLUME 9.6 fl (7.5-11.1); RDW 14.3 % (11.9-15.9); WHITE BLOOD COUNT 2.2 K/mm3 (4.0-10.0)
[2019-12-29 11:02] LABS: ALBUMIN 2.4 g/dl (3.4-5.0); BLOOD UREA NITROGEN 3.7 mg/dL (7-18); CALCIUM 7.5 mg/dL (8.5-10.1); CREATININE 0.4 mg/dL (0.55-1.3); POTASSIUM 3.9 mmol/L (3.5-5.1); TOT PROT 5.7 g/dl (6.4-8.2)
[2019-12-29 11:06] LABS: BILIRUBIN,TOTAL 1.9 mg/dL (0.2-1)
[2019-12-29 11:12] LABS: PLATELET COUNT 36 K/MM3 (134-434)
--- NOTE | 2019-12-29 13:20 | PN ---
[facility] CIWA - CIWA Score Nausea/Vomitin-No Nausea/No Vomiting Muscle Tremors: 3 Anxiety: 2 Agitation: 3 Paroxysmal Sweats: 2 Orientation: 0-Oriented Tacttile Disturbances: 0-None Auditory Disturbances: 0-None Visual Disturbances: 0-None Headache: 0-None Present CIWA-Ar Total Score: 10 S Progress Note (SOAP) Subjective: sweats shakes restless body aches nausea interrupted sleep Objective: 12/29/19 13:19 Vital Signs Temperature 97.3 F L 12/29/19 08:29 Pulse Rate 81 12/29/19 08:29 Respiratory Rate 16 12/29/19 08:29 Blood Pressure 155/79 12/29/19 08:29 O2 Sat by Pulse Oximetry (%) 97 12/29/19 08:29 Laboratory Tests 12/28/19 12/28/19 12/29/19 15:57 17:00 08:00 WBC 2.2 L RBC 3.80 L Hgb 12.7 Hct 35.9 MCV 94.6 MCH 33.3 MCHC 35.2 RDW 14.3 Plt Count 36 L* MPV 9.6 Sodium Potassium Chloride Carbon Dioxide Anion Gap BUN Creatinine Est GFR (CKD-EPI)AfAm Est GFR (CKD-EPI)NonAf POC Glucometer 170 187 Random Glucose Calcium Total Bilirubin AST ALT Alkaline Phosphatase Total Protein Albumin Syphilis Serology HIV Ag/Ab Combo Qual 12/29/19 12/29/19 12/29/19 08:00 08:00 08:00 WBC RBC Hgb Hct MCV MCH MCHC RDW Plt Count MPV Sodium 142 Potassium 3.9 Chloride 107 Carbon Dioxide 30 Anion Gap 4 L BUN 3.7 L Creatinine 0.4 L Est GFR (CKD-EPI)AfAm 183.43 Est GFR (CKD-EPI)NonAf 158.27 POC Glucometer Random Glucose 135 H Calcium 7.5 L Total Bilirubin 1.9 H AST 132 H ALT 44 Alkaline Phosphatase 179 H Total Protein 5.7 L Albumin 2.4 L Syphilis Serology Non-reactive HIV Ag/Ab Combo Qual Negative labs noted pt has a h/o thrombocytopenia currently his platelets is 36 will repeat labs aaox3 ambulating no acute distress Assessment: 12/29/19 13:20 withdrawal Plan: continue detox increase fluids zofran prn repeat labs
[2019-12-29] MEDS: ONDANSETRON *ODT* 4 MG TABLET SL PRN (17:53)
[2019-12-29] MEDS: THIAMINE HCL 100 MG TABLET (FP) PO SCH (22:50)
[2019-12-29] MEDS: MELATONIN 5 MG TABLETS PO SCH (22:50)
[2019-12-29] MEDS: SUVOREXANT 10 MG TABLET PO PRN (22:51)
[2019-12-30] MEDS: diazePAM 5 MG TABLET PO SCH ×3 (05:27→22:15)
[2019-12-30] MEDS: metFORMIN HCL 500 MG TABLET (FP) PO SCH (06:19)
[2019-12-30] MEDS: PRENATAL VITAMINS W/ FOLIC ACID TABLET (FP) PO SCH (10:06)
[2019-12-30] MEDS: NICOTINE 7 MG/24 HOURS TOPICAL PATCH TD SCH (10:06)
[2019-12-30] MEDS: NICOTINE POLACRILEX 2 MG GUM BUC PRN (10:06)
[2019-12-30] MEDS: ONDANSETRON *ODT* 4 MG TABLET SL PRN ×2 (13:18→22:15)
--- NOTE | 2019-12-30 14:02 | PN ---
[facility] CIWA - CIWA Score Nausea/Vomitin-No Nausea/No Vomiting Muscle Tremors: 3 Anxiety: 2 Agitation: 2 Paroxysmal Sweats: 2 Orientation: 0-Oriented Tacttile Disturbances: 0-None Auditory Disturbances: 0-None Visual Disturbances: 0-None Headache: 0-None Present CIWA-Ar Total Score: 9 BHS Progress Note (SOAP) Subjective: sweats restless interrupted sleep Objective: 12/30/19 14:00 Vital Signs Temperature 97.8 F 12/30/19 12:57 Pulse Rate 75 12/30/19 12:57 Respiratory Rate 12/30/19 12:57 Blood Pressure 160/81 12/30/19 12:57 O2 Sat by Pulse Oximetry (%) 99 12/30/19 12:57 Laboratory Tests 12/28/19 12/28/19 12/28/19 15:50 15:57 17:00 WBC RBC Hgb Hct MCV MCH MCHC RDW Plt Count MPV Sodium Potassium Chloride Carbon Dioxide Anion Gap BUN Creatinine Est GFR (CKD-EPI)AfAm Est GFR (CKD-EPI)NonAf POC Glucometer 170 187 Random Glucose Calcium Total Bilirubin AST ALT Alkaline Phosphatase Total Protein Albumin Syphilis Serology COVID-19 ([facility]UDIO) Not detected HIV Ag/Ab Combo Qual 12/29/19 12/29/19 12/29/19 08:00 08:00 08:00 WBC 2.2 L RBC 3.80 L Hgb 12.7 Hct 35.9 MCV 94.6 MCH 33.3 MCHC 35.2 RDW 14.3 Plt Count 36 L* MPV 9.6 Sodium 142 Potassium 3.9 Chloride 107 Carbon Dioxide 30 Anion Gap 4 L BUN 3.7 L Creatinine 0.4 L Est GFR (CKD-EPI)AfAm 183.43 Est GFR (CKD-EPI)NonAf 158.27 POC Glucometer Random Glucose 135 H Calcium 7.5 L Total Bilirubin 1.9 H AST 132 H ALT 44 Alkaline Phosphatase 179 H Total Protein 5.7 L Albumin 2.4 L Syphilis Serology Non-reactive COVID-19 ([facility]) HIV Ag/Ab Combo Qual 12/29/19 12/29/19 12/30/19 08:00 17:03 05:25 WBC RBC Hgb Hct MCV MCH MCHC RDW Plt Count MPV Sodium Potassium Chloride Carbon Dioxide Anion Gap BUN Creatinine Est GFR (CKD-EPI)AfAm Est GFR (CKD-EPI)NonAf POC Glucometer 102 109 Random Glucose Calcium Total Bilirubin AST ALT Alkaline Phosphatase Total Protein Albumin Syphilis Serology COVID-19 ([facility]UDIO) HIV Ag/Ab Combo Qual Negative labs noted aaox3 ambulating no acute distress Assessment: 12/30/19 14:01 withdrawals Plan: continue detox
[2019-12-30] MEDS: SUVOREXANT 10 MG TABLET PO PRN (22:14)
[2019-12-30] MEDS: THIAMINE HCL 100 MG TABLET (FP) PO SCH (22:15)
[2019-12-30] MEDS: MELATONIN 5 MG TABLETS PO SCH (22:17)
[2019-12-31] MEDS: diazePAM 5 MG TABLET PO SCH ×2 (05:29→17:18)
[2019-12-31] MEDS: metFORMIN HCL 500 MG TABLET (FP) PO SCH (08:00)
[2019-12-31 10:17] LABS: ALBUMIN 2.6 g/dl (3.4-5.0); BILIRUBIN,TOTAL 3.9 mg/dL (0.2-1); BLOOD UREA NITROGEN 5.1 mg/dL (7-18); CALCIUM 8.3 mg/dL (8.5-10.1); CREATININE 0.5 mg/dL (0.55-1.3); POTASSIUM 4.2 mmol/L (3.5-5.1)
[2019-12-31 10:18] LABS: BASO % 1.4 % (0-2.0); EOS % 6.7 % (0-4.5); HEMATOCRIT 37.6 % (35.4-49); HEMOGLOBIN 13.1 GM/dL (11.7-16.9); LYMPH % 31.4 % (8-40); MCH 32.9 pg (25.7-33.7); MCHC 34.8 g/dl (32.0-35.9); MEAN CELL VOLUME 94.5 fl (80-96); MONO % 11.4 % (3.8-10.2); NEUT % 49.1 % (42.8-82.8); PLATELET COUNT 50 K/MM3 (134-434); RBC 3.98 M/mm3 (4.00-5.60); RDW 14.7 % (11.9-15.9); WHITE BLOOD COUNT 2.9 K/mm3 (4.0-10.0)
[2019-12-31] MEDS: PRENATAL VITAMINS W/ FOLIC ACID TABLET (FP) PO SCH (10:23)
[2019-12-31] MEDS: NICOTINE 7 MG/24 HOURS TOPICAL PATCH TD SCH (10:23)
--- NOTE | 2019-12-31 14:50 | PN ---
S CIWA - CIWA Score Nausea/Vomitin-No Nausea/No Vomiting Muscle Tremors: 2 Anxiety: 1-Mildly Anxious Agitation: 1-Slight > Activity Paroxysmal Sweats: 2 Orientation: 0-Oriented Tacttile Disturbances: 0-None Auditory Disturbances: 0-None Visual Disturbances: 0-None Headache: 0-None Present CIWA-Ar Total Score: 6 BHS Progress Note (SOAP) Subjective: sweats anxiety Objective: 12/31/19 14:46 Vital Signs Temperature 98.4 F 12/31/19 12:26 Pulse Rate 72 12/31/19 12:26 Respiratory Rate 18 12/31/19 12:26 Blood Pressure 139/67 12/31/19 12:26 O2 Sat by Pulse Oximetry (%) 95 12/31/19 12:26 Laboratory Tests 12/28/19 12/28/19 12/28/19 15:50 15:57 17:00 WBC RBC Hgb Hct MCV MCH MCHC RDW Plt Count MPV Absolute Neuts (auto) Neutrophils % Lymphocytes % Monocytes % Eosinophils % Basophils % Nucleated RBC % Sodium Potassium Chloride Carbon Dioxide Anion Gap BUN Creatinine Est GFR (CKD-EPI)AfAm Est GFR (CKD-EPI)NonAf POC Glucometer 170 187 Random Glucose Calcium Total Bilirubin AST ALT Alkaline Phosphatase Total Protein Albumin Syphilis Serology COVID-19 ([facility]IO) Not detected HIV Ag/Ab Combo Qual 12/29/19 12/29/19 12/29/19 08:00 08:00 08:00 WBC 2.2 L RBC 3.80 L Hgb 12.7 Hct 35.9 MCV 94.6 MCH 33.3 MCHC 35.2 RDW 14.3 Plt Count 36 L* MPV 9.6 Absolute Neuts (auto) Neutrophils % Lymphocytes % Monocytes % Eosinophils % Basophils % Nucleated RBC % Sodium 142 Potassium 3.9 Chloride 107 Carbon Dioxide 30 Anion Gap 4 L BUN 3.7 L Creatinine 0.4 L Est GFR (CKD-EPI)AfAm 183.43 Est GFR (CKD-EPI)NonAf 158.27 POC Glucometer Random Glucose 135 H Calcium 7.5 L Total Bilirubin 1.9 H AST 132 H ALT 44 Alkaline Phosphatase 179 H Total Protein 5.7 L Albumin 2.4 L Syphilis Serology Non-reactive COVID-19 ([facility]) HIV Ag/Ab Combo Qual 12/29/19 12/29/19 12/30/19 08:00 17:03 05:25 WBC RBC Hgb Hct MCV MCH MCHC RDW Plt Count MPV Absolute Neuts (auto) Neutrophils % Lymphocytes % Monocytes % Eosinophils % Basophils % Nucleated RBC % Sodium Potassium Chloride Carbon Dioxide Anion Gap BUN Creatinine Est GFR (CKD-EPI)AfAm Est GFR (CKD-EPI)NonAf POC Glucometer 102 109 Random Glucose Calcium Total Bilirubin AST ALT Alkaline Phosphatase Total Protein Albumin Syphilis Serology COVID-19 ([facility]) HIV Ag/Ab Combo Qual Negative 12/30/19 12/31/19 12/31/19 16:47 05:28 08:00 WBC 2.9 L RBC 3.98 L Hgb 13.1 Hct 37.6 MCV 94.5 MCH 32.9 MCHC 34.8 RDW 14.7 Plt Count 50 L D MPV 10.0 Absolute Neuts (auto) 1.4 L Neutrophils % 49.1 Lymphocytes % 31.4 D Monocytes % 11.4 H Eosinophils % 6.7 H Basophils % 1.4 Nucleated RBC % 1 H Sodium Potassium Chloride Carbon Dioxide Anion Gap BUN Creatinine Est GFR (CKD-EPI)AfAm Est GFR (CKD-EPI)NonAf POC Glucometer 110 98 Random Glucose Calcium Total Bilirubin AST ALT Alkaline Phosphatase Total Protein Albumin Syphilis Serology COVID-19 ([facility]) HIV Ag/Ab Combo Qual 12/31/19 08:00 WBC RBC Hgb Hct MCV MCH MCHC RDW Plt Count MPV Absolute Neuts (auto) Neutrophils % Lymphocytes % Monocytes % Eosinophils % Basophils % Nucleated RBC % Sodium 138 Potassium 4.2 Chloride 105 Carbon Dioxide 27 Anion Gap 7 L BUN 5.1 L Creatinine 0.5 L Est GFR (CKD-EPI)AfAm 167.36 Est GFR (CKD-EPI)NonAf 144.40 POC Glucometer Random Glucose 100 Calcium 8.3 L Total Bilirubin 3.9 H D AST 91 H ALT 37 Alkaline Phosphatase 162 H Total Protein 6.0 L Albumin 2.6 L Syphilis Serology COVID-19 ([facility]) HIV Ag/Ab Combo Qual labs noted aaox3 ambulating no acute distress platelet show improvement Assessment: 12/31/19 14:50 withdrawals Plan: continue detox d/c in am
[2019-12-31] MEDS: THIAMINE HCL 100 MG TABLET (FP) PO SCH (22:08)
[2019-12-31] MEDS: SUVOREXANT 10 MG TABLET PO PRN (22:10)
[2019-12-31] MEDS: MELATONIN 5 MG TABLETS PO SCH (22:10)
[2019-12-31] MEDS: METHOCARBAMOL 500 MG TABLET PO PRN (22:11)
[2020-01-01] MEDS ORDERED: diazePAM 5 MG TABLET PO ONE (06:00)
[2020-01-01] MEDS: metFORMIN HCL 500 MG TABLET (FP) PO SCH (06:27)
[2020-01-01 09:26] VITALS: BP 135/74; PULSE 78; TEMP 98.1
--- NOTE | 2020-01-01 17:30 | DS ---
[facility] Detox Discharge Summary Admission Date: 12/28/19 Discharge Date: 01/01/20 - History Present History: Alcohol Dependence, Cocaine Dependence Additional Comments: Patient returning to [facility], where he has previously been a client, for aftercare. Patient advised to follow-up with [facility]CHN[facility] after Discharge from Detox for history of Cirrhosis of Liver and low WBC and Platelet levels noted on detox admission laboratory assessment. Patient verbalized understanding of recommendation and notes that he has already previously consulted a medical provider for these conditions and will follow-up again in near future. Copies of results of all labs drawn while admitted for detox given to patient at time of discharge from detox unit. Patient declined offer of Medication Prescription for home medication at time of Discharge from Detox, noting that he currently has adequate supplies of all prescribed home medications at home. Pertinent Past History: Cirrhosis of Liver, History of Esophageal Varices, History of Alcoholic Hepatitis, HTN, GERD, Major Depressive Disorder, Hyperglycemia, Nicotine Dependence, History of Elevated Liver Enzymes, History of Anemia. - Physical Exam Results Vital Signs: Vital Signs Temperature 98.1 F 01/01/20 08:21 Pulse Rate 78 01/01/20 08:21 Respiratory Rate 18 01/01/20 08:21 Blood Pressure 135/74 01/01/20 08:21 O2 Sat by Pulse Oximetry (%) 97 01/01/20 06:09 Pertinent Admission Physical Exam Findings: WITHDRAWAL SYMPTOMS. Laboratory Tests 12/28/19 12/28/19 12/28/19 15:50 15:57 17:00 WBC RBC Hgb Hct MCV MCH MCHC RDW Plt Count MPV Absolute Neuts (auto) Neutrophils % Lymphocytes % Monocytes % Eosinophils % Basophils % Nucleated RBC % Sodium Potassium Chloride Carbon Dioxide Anion Gap BUN Creatinine Est GFR (CKD-EPI)AfAm Est GFR (CKD-EPI)NonAf POC Glucometer 170 187 Random Glucose Calcium Total Bilirubin AST ALT Alkaline Phosphatase Total Protein Albumin Syphilis Serology COVID-19 ([facility]) Not detected HIV Ag/Ab Combo Qual 12/29/19 12/29/19 12/29/19 08:00 08:00 08:00 WBC 2.2 L RBC 3.80 L Hgb 12.7 Hct 35.9 MCV 94.6 MCH 33.3 MCHC 35.2 RDW 14.3 Plt Count 36 L* MPV 9.6 Absolute Neuts (auto) Neutrophils % Lymphocytes % Monocytes % Eosinophils % Basophils % Nucleated RBC % Sodium 142 Potassium 3.9 Chloride 107 Carbon Dioxide 30 Anion Gap 4 L BUN 3.7 L Creatinine 0.4 L Est GFR (CKD-EPI)AfAm 183.43 Est GFR (CKD-EPI)NonAf 158.27 POC Glucometer Random Glucose 135 H Calcium 7.5 L Total Bilirubin 1.9 H AST 132 H ALT 44 Alkaline Phosphatase 179 H Total Protein 5.7 L Albumin 2.4 L Syphilis Serology Non-reactive COVID-19 ([facility]) HIV Ag/Ab Combo Qual 12/29/19 12/29/19 12/30/19 08:00 17:03 05:25 WBC RBC Hgb Hct MCV MCH MCHC RDW Plt Count MPV Absolute Neuts (auto) Neutrophils % Lymphocytes % Monocytes % Eosinophils % Basophils % Nucleated RBC % Sodium Potassium Chloride Carbon Dioxide Anion Gap BUN Creatinine Est GFR (CKD-EPI)AfAm Est GFR (CKD-EPI)NonAf POC Glucometer 102 109 Random Glucose Calcium Total Bilirubin AST ALT Alkaline Phosphatase Total Protein Albumin Syphilis Serology COVID-19 ([facility]) HIV Ag/Ab Combo Qual Negative 12/30/19 12/31/19 12/31/19 16:47 05:28 08:00 WBC 2.9 L RBC 3.98 L Hgb 13.1 Hct 37.6 MCV 94.5 MCH 32.9 MCHC 34.8 RDW 14.7 Plt Count 50 L D MPV 10.0 Absolute Neuts (auto) 1.4 L Neutrophils % 49.1 Lymphocytes % 31.4 D Monocytes % 11.4 H Eosinophils % 6.7 H Basophils % 1.4 Nucleated RBC % 1 H Sodium Potassium Chloride Carbon Dioxide Anion Gap BUN Creatinine Est GFR (CKD-EPI)AfAm Est GFR (CKD-EPI)NonAf POC Glucometer 110 98 Random Glucose Calcium Total Bilirubin AST ALT Alkaline Phosphatase Total Protein Albumin Syphilis Serology COVID-19 ([facility]) HIV Ag/Ab Combo Qual 12/31/19 12/31/19 01/01/20 08:00 16:35 06:26 WBC RBC Hgb Hct MCV MCH MCHC RDW Plt Count MPV Absolute Neuts (auto) Neutrophils % Lymphocytes % Monocytes % Eosinophils % Basophils % Nucleated RBC % Sodium 138 Potassium 4.2 Chloride 105 Carbon Dioxide 27 Anion Gap 7 L BUN 5.1 L Creatinine 0.5 L Est GFR (CKD-EPI)AfAm 167.36 Est GFR (CKD-EPI)NonAf 144.40 POC Glucometer 164 105 Random Glucose 100 Calcium 8.3 L Total Bilirubin 3.9 H D AST 91 H ALT 37 Alkaline Phosphatase 162 H Total Protein 6.0 L Albumin 2.6 L Syphilis Serology COVID-19 ([facility]) HIV Ag/Ab Combo Qual Lab Results noted. - Treatment Hospital Course: Detox Protocol Followed, Detoxed Safely, Responded well, Discharged Condition Good Patient has Accepted a Rehab Referral to: Pt. Returning to [facility]iosu [facility] for aftercare. - Medication Discharge Medications: Ambulatory Orders Folic Acid 1 mg PO DAILY 10/01/19 Metformin HCl [Glucophage] 500 mg PO DAILY 11/28/19 Cyanocobalamin (Vitamin B-12) [Vitamin B-12] 1,000 mcg PO DAILY 12/28/19 - Diagnosis (1) Elevated liver enzymes Status: Acute (2) Substance-induced sleep disorder Status: Acute (3) Alcohol dependence with uncomplicated withdrawal Status: Chronic (4) Alcoholic hepatitis Status: Chronic Qualifiers: Ascites presence: without ascites Qualified Code(s): K70.10 - Alcoholic hepatitis without ascites (5) Anemia Status: Chronic Qualifiers: Anemia type: iron deficiency Iron deficiency anemia type: unspecified iron deficiency Qualified Code(s): D50.9 - Iron deficiency anemia, unspecified (6) Cocaine dependence, uncomplicated Status: Chronic (7) GERD (gastroesophageal reflux disease) Status: Chronic Qualifiers: Esophagitis presence: without esophagitis Qualified Code(s): K21.9 - Gastro-esophageal reflux disease without esophagitis (8) HTN (hypertension) Status: Chronic Qualifiers: Hypertension type: essential hypertension Qualified Code(s): I10 - Essential (primary) hypertension (9) Hyperglycemia Status: Chronic (10) Liver cirrhosis, alcoholic Status: Chronic Qualifiers: Ascites presence: with ascites Qualified Code(s): K70.31 - Alcoholic cirrhosis of liver with ascites (11) Nicotine dependence Status: Chronic Qualifiers: Nicotine product type: cigarettes Substance use status: in withdrawal Qualified Code(s): F17.213 - Nicotine dependence, cigarettes, with withdrawal (12) Obese Status: Chronic Qualifiers: Obesity type: unspecified obesity type Obesity classification: adult class 3 (BMI >= 40) Serious obesity comorbidity presence: unspecified whether serious comorbidity present Body mass index: BMI 40.0-44.9 Qualified Code(s): E66.01 - Morbid (severe) obesity due to excess calories; Z68.41 - Body mass index (BMI) 40.0-44.9, adult (13) Thrombocytopenia Status: Chronic (14) MDD (major depressive disorder) Status: Ruled-out Qualifiers: Major depression recurrence: unspecified whether recurrent Active/Remission status: remission status unspecified Qualified Code(s): F32.9 - Major depressive disorder, single episode, unspecified - AMA Did Patient Leave Against Medical Advice: No
== END 2020-01-01 09:42 | disposition home or self-care (01) | DRG 774 ==
LOC: YASAS 12:39 → Y6N 15:41
PROVIDERS: ADMIT Allergy & Immunology; ATTEND Allergy & Immunology
PROC: HZ2ZZZZ Detoxification Services for Substance Abuse Treatment (ICD-10-PCS; principal; 2019-12-28)
DX: F10.230 Alcohol dependence with withdrawal, uncomplicated (principal); F14.20 Cocaine dependence, uncomplicated; F17.210 Nicotine dependence, cigarettes, uncomplicated; D69.6 Thrombocytopenia, unspecified; D50.9 Iron deficiency anemia, unspecified; E11.9 Type 2 diabetes mellitus without complications; I10 Essential (primary) hypertension; K70.10 Alcoholic hepatitis without ascites; K21.9 Gastro-esophageal reflux disease without esophagitis; K70.30 Alcoholic cirrhosis of liver without ascites; E66.01 Morbid (severe) obesity due to excess calories; Z68.43 Body mass index [BMI] 50.0-59.9, adult; Z98.890 Other specified postprocedural states
CPT/HCPCS: 36415; 80053; 82962; 85025; 85027; 86780; 87389; Q0162; U0003

== ENCOUNTER 2020-04-21 11:38 | Inpatient (IN) | payer OTHER ==
[2020-04-21 16:39] VITALS: BMI 48.7
[2020-04-21] MEDS ORDERED: MAGNESIUM HYDROX 2400MG/30ML ORAL SUSPENSION 30 ML CUP PO PRN (18:47)
[2020-04-21] MEDS ORDERED: BISMUTH SUBSALICYLATE 524 MG/30 ML UD PO PRN (18:47)
[2020-04-21] MEDS ORDERED: MENTHOL/PHENOL 1 EACH UD MM PRN (18:47)
[2020-04-21] MEDS ORDERED: METHOCARBAMOL 500 MG TABLET PO PRN (18:47)
[2020-04-21] MEDS ORDERED: ONDANSETRON *ODT* 4 MG TABLET SL PRN (18:47)
[2020-04-21] MEDS ORDERED: MAGNESIUM CITRATE 300 ML BOTTLE PO PRN (18:47)
[2020-04-21] MEDS ORDERED: diazePAM 5 MG TABLET PO PRN (18:47)
[2020-04-21] MEDS ORDERED: MAG HYDROX/AL HYDROX/SIMETH 30 ML UNIT-DOSE CUP PO PRN (18:47)
[2020-04-21] MEDS ORDERED: ACETAMINOPHEN 325 MG TABLET (FP) PO PRN ×2 (18:47)
[2020-04-21] MEDS ORDERED: MELATONIN 5 MG TABLETS PO SCH (22:00)
[2020-04-21] MEDS: diazePAM 5 MG TABLET PO SCH (22:13)
[2020-04-21] MEDS: IBUPROFEN 400 MG TABLET (FP) PO PRN (22:14)
[2020-04-21] MEDS: THIAMINE HCL 100 MG TABLET (FP) PO SCH (22:14)
[2020-04-21] MEDS ORDERED: INSULIN (NOVOLOG) ASPART 100 UNITS/ML 10ML VIAL SQ ONE (23:19)
[2020-04-22] MEDS: diazePAM 5 MG TABLET PO SCH ×4 (05:46→22:33)
[2020-04-22] MEDS ORDERED: INSULIN (NOVOLOG) ASPART 100 UNITS/ML 10ML VIAL ONE ×2 (07:53→22:32)
[2020-04-22] MEDS: PRENATAL VITAMINS W/ FOLIC ACID TABLET (FP) PO SCH (10:28)
[2020-04-22] MEDS: NICOTINE 14 MG/24 HOURS TOPICAL PATCH TD SCH (10:29)
[2020-04-22] MEDS: NICOTINE POLACRILEX 2 MG GUM BUC PRN (10:29)
[2020-04-22 12:59] LABS: HEMOGLOBIN 12.1 GM/dL (11.7-16.9); MCHC 34.6 g/dl (32.0-35.9); MEAN CELL VOLUME 92.4 fl (80-96); MEAN PLT VOLUME 9.4 fl (7.5-11.1); RBC 3.79 M/mm3 (4.00-5.60); RDW 13.8 % (11.9-15.9); WHITE BLOOD COUNT 2.3 K/mm3 (4.0-10.0)
[2020-04-22 13:07] LABS: POTASSIUM 3.5 mmol/L (3.5-5.1)
[2020-04-22 13:09] LABS: CALCIUM 8.1 mg/dL (8.5-10.1)
[2020-04-22 13:10] LABS: ALBUMIN 2.6 g/dl (3.4-5.0); BLOOD UREA NITROGEN 5.1 mg/dL (7-18)
[2020-04-22 13:12] LABS: CREATININE 0.4 mg/dL (0.55-1.3)
[2020-04-22 13:13] LABS: PLATELET COUNT 35 K/MM3 (134-434)
[2020-04-22 13:14] LABS: BILIRUBIN,TOTAL 1.9 mg/dL (0.2-1); TOT PROT 5.7 g/dl (6.4-8.2)
[2020-04-22] MEDS: IBUPROFEN 400 MG TABLET (FP) PO PRN (13:49)
[2020-04-22] MEDS: INSULIN SLIDING SCALE (NOVOLOG) 1 VIAL SQ SCH (22:29)
[2020-04-22] MEDS: THIAMINE HCL 100 MG TABLET (FP) PO SCH (22:33)
[2020-04-22] MEDS: MIRTAZAPINE 15 MG TABLET (FP) PO SCH (22:34)
[2020-04-22] MEDS: SUVOREXANT 10 MG TABLET PO PRN (22:34)
[2020-04-22] MEDS: busPIRone HCL 5 MG TABLET PO SCH (22:56)
[2020-04-23] MEDS: busPIRone HCL 5 MG TABLET PO SCH ×3 (05:41→22:38)
[2020-04-23] MEDS: diazePAM 5 MG TABLET PO SCH ×3 (05:41→22:38)
[2020-04-23] MEDS: metFORMIN HCL 500 MG TABLET (FP) PO SCH ×2 (06:56→17:06)
[2020-04-23] MEDS ORDERED: INSULIN (NOVOLOG) ASPART 100 UNITS/ML 10ML VIAL ONE ×4 (07:08→22:00)
[2020-04-23] MEDS: INSULIN SLIDING SCALE (NOVOLOG) 1 VIAL SQ SCH ×4 (07:11→22:39)
[2020-04-23 10:41] LABS: POTASSIUM 3.9 mmol/L (3.5-5.1)
[2020-04-23] MEDS: PRENATAL VITAMINS W/ FOLIC ACID TABLET (FP) PO SCH (10:44)
[2020-04-23] MEDS: NICOTINE 14 MG/24 HOURS TOPICAL PATCH TD SCH (10:44)
[2020-04-23] MEDS: NICOTINE POLACRILEX 2 MG GUM BUC PRN ×2 (10:45→18:18)
[2020-04-23 10:46] LABS: HEMATOCRIT 38.5 % (35.4-49); HEMOGLOBIN 13.7 GM/dL (11.7-16.9); MCH 32.4 pg (25.7-33.7); MCHC 35.7 g/dl (32.0-35.9); MEAN CELL VOLUME 90.8 fl (80-96); MEAN PLT VOLUME 9.3 fl (7.5-11.1); PLATELET COUNT 42 K/MM3 (134-434); RBC 4.24 M/mm3 (4.00-5.60); WHITE BLOOD COUNT 2.4 K/mm3 (4.0-10.0)
[2020-04-23 10:47] LABS: ALBUMIN 2.9 g/dl (3.4-5.0); BLOOD UREA NITROGEN 4.4 mg/dL (7-18); CALCIUM 8.4 mg/dL (8.5-10.1)
[2020-04-23 10:49] LABS: CREATININE 0.5 mg/dL (0.55-1.3)
[2020-04-23 10:51] LABS: BILIRUBIN,TOTAL 2.8 mg/dL (0.2-1); TOT PROT 6.3 g/dl (6.4-8.2)
[2020-04-23] MEDS ORDERED: MASKS NR ONE (11:02)
[2020-04-23] MEDS: ARTIFICIAL TEARS (POLYVINYL ALCOHOL) OPTH DROPS OU SCH ×3 (13:21→22:39)
[2020-04-23] MEDS: LACTULOSE 20 GM/30 ML UDC (FOR ORAL USE ONLY) PO SCH ×3 (13:21→22:42)
[2020-04-23] MEDS: THIAMINE HCL 100 MG TABLET (FP) PO SCH (22:38)
[2020-04-23] MEDS: SUVOREXANT 10 MG TABLET PO PRN (22:39)
[2020-04-23] MEDS: MIRTAZAPINE 15 MG TABLET (FP) PO SCH (22:39)
[2020-04-24] MEDS: busPIRone HCL 5 MG TABLET PO SCH ×3 (05:45→22:51)
[2020-04-24] MEDS: diazePAM 5 MG TABLET PO SCH ×2 (05:46→18:27)
[2020-04-24] MEDS: metFORMIN HCL 500 MG TABLET (FP) PO SCH ×2 (06:23→17:01)
[2020-04-24] MEDS: INSULIN SLIDING SCALE (NOVOLOG) 1 VIAL SQ SCH ×4 (07:10→22:52)
[2020-04-24] MEDS ORDERED: INSULIN (NOVOLOG) ASPART 100 UNITS/ML 10ML VIAL ONE ×4 (08:12→22:53)
[2020-04-24] MEDS: ARTIFICIAL TEARS (POLYVINYL ALCOHOL) OPTH DROPS OU SCH ×4 (10:36→22:51)
[2020-04-24] MEDS: LACTULOSE 20 GM/30 ML UDC (FOR ORAL USE ONLY) PO SCH ×4 (10:36→23:28)
[2020-04-24] MEDS: NICOTINE 14 MG/24 HOURS TOPICAL PATCH TD SCH (10:37)
[2020-04-24] MEDS: PRENATAL VITAMINS W/ FOLIC ACID TABLET (FP) PO SCH (10:37)
[2020-04-24] MEDS: NICOTINE POLACRILEX 2 MG GUM BUC PRN ×4 (10:37→18:28)
[2020-04-24] MEDS ORDERED: cloNIDine HCL 0.1 MG TABLET PO PRN (12:31)
[2020-04-24] MEDS ORDERED: NALTREXONE HCL 50 MG TABLET PO SCH (16:30)
[2020-04-24] MEDS: THIAMINE HCL 100 MG TABLET (FP) PO SCH (22:51)
[2020-04-24] MEDS: SUVOREXANT 10 MG TABLET PO PRN (22:51)
[2020-04-24] MEDS: MIRTAZAPINE 15 MG TABLET (FP) PO SCH (22:52)
[2020-04-25] MEDS: busPIRone HCL 5 MG TABLET PO SCH (05:15)
[2020-04-25] MEDS ORDERED: diazePAM 5 MG TABLET PO ONE (06:00)
[2020-04-25 06:10] VITALS: TEMP 97.7
[2020-04-25] MEDS: metFORMIN HCL 500 MG TABLET (FP) PO SCH (07:41)
[2020-04-25] MEDS: INSULIN SLIDING SCALE (NOVOLOG) 1 VIAL SQ SCH (07:42)
[2020-04-25] MEDS ORDERED: INSULIN (NOVOLOG) ASPART 100 UNITS/ML 10ML VIAL ONE (07:44)
[2020-04-25 09:19] VITALS: BP 146/73; PULSE 78
== END 2020-04-25 09:58 | disposition home or self-care (01) | DRG 775 ==
LOC: YASAS 11:38 → Y6N 19:20
PROVIDERS: ADMIT Allergy & Immunology; ATTEND Allergy & Immunology
PROC: HZ2ZZZZ Detoxification Services for Substance Abuse Treatment (ICD-10-PCS; principal; 2020-04-21)
DX: F10.230 Alcohol dependence with withdrawal, uncomplicated (principal); F17.210 Nicotine dependence, cigarettes, uncomplicated; F41.9 Anxiety disorder, unspecified; F32.9 Major depressive disorder, single episode, unspecified; D69.6 Thrombocytopenia, unspecified; D72.818 Other decreased white blood cell count; E72.20 Disorder of urea cycle metabolism, unspecified; E11.9 Type 2 diabetes mellitus without complications; Z79.84 Long term (current) use of oral hypoglycemic drugs; I83.93 Asymptomatic varicose veins of bilateral lower extremities; R74.8 Abnormal levels of other serum enzymes; K21.9 Gastro-esophageal reflux disease without esophagitis; K70.10 Alcoholic hepatitis without ascites; K70.30 Alcoholic cirrhosis of liver without ascites; I10 Essential (primary) hypertension; E66.01 Morbid (severe) obesity due to excess calories; Z91.14 Patient's other noncompliance with medication regimen; Z91.19 Patient's noncompliance with other medical treatment and regimen; Z98.890 Other specified postprocedural states
CPT/HCPCS: 36415; 80053; 82140; 82962; 85027; 86780; 93005; 93010; C9803; U0003

== ENCOUNTER 2020-05-23 11:45 | Inpatient (IN) | payer OTHER ==
[~2020-05-23 11:45] MED LIST changes: -MELATONIN 5 MG TABLETS PO PRN; +chlordiazePOXIDE HCL 25 MG CAPSULE PO SCH
[2020-05-23 13:19] VITALS: BMI 50.3
[2020-05-23] MEDS ORDERED: ONDANSETRON *ODT* 4 MG TABLET SL PRN (13:19)
[2020-05-23] MEDS ORDERED: METHOCARBAMOL 500 MG TABLET PO PRN (13:19)
[2020-05-23] MEDS ORDERED: chlordiazePOXIDE HCL 25 MG CAPSULE PO PRN (13:19)
[2020-05-23] MEDS ORDERED: MENTHOL/PHENOL 1 EACH UD MM PRN (13:19)
[2020-05-23] MEDS ORDERED: MAGNESIUM CITRATE 300 ML BOTTLE PO PRN (13:19)
[2020-05-23] MEDS ORDERED: MAGNESIUM HYDROX 2400MG/30ML ORAL SUSPENSION 30 ML CUP PO PRN (13:19)
[2020-05-23] MEDS ORDERED: MAG HYDROX/AL HYDROX/SIMETH 30 ML UNIT-DOSE CUP PO PRN (13:19)
[2020-05-23] MEDS ORDERED: BISMUTH SUBSALICYLATE 524 MG/30 ML UD PO PRN (13:19)
[2020-05-23] MEDS ORDERED: IBUPROFEN 400 MG TABLET (FP) PO PRN (13:19)
[2020-05-23] MEDS ORDERED: ACETAMINOPHEN 325 MG TABLET (FP) PO PRN ×2 (13:19)
[2020-05-23] MEDS ORDERED: LORazepam 1 MG TABLET PO PRN (13:33)
[2020-05-23] MEDS ORDERED: INSULIN (NOVOLOG) ASPART 100 UNITS/ML 10ML VIAL ONE (14:16)
[2020-05-23 15:13] LABS: HEMATOCRIT 40.5 % (35.4-49); MCHC 34.4 g/dl (32.0-35.9); MEAN PLT VOLUME 9.5 fl (7.5-11.1); PLATELET COUNT 37 K/MM3 (134-434); RBC 4.36 M/mm3 (4.00-5.60); RDW 14.9 % (11.9-15.9); WHITE BLOOD COUNT 3.1 K/mm3 (4.0-10.0)
[2020-05-23 15:22] LABS: POTASSIUM 3.7 mmol/L (3.5-5.1)
[2020-05-23 15:27] LABS: ALBUMIN 2.9 g/dl (3.4-5.0); BLOOD UREA NITROGEN 3.8 mg/dL (7-18)
[2020-05-23 15:28] LABS: CALCIUM 7.9 mg/dL (8.5-10.1)
[2020-05-23 15:29] LABS: CREATININE 0.6 mg/dL (0.55-1.3)
[2020-05-23] MEDS: NICOTINE 14 MG/24 HOURS TOPICAL PATCH TD SCH (15:29)
[2020-05-23] MEDS: NICOTINE POLACRILEX 2 MG GUM BUC PRN (15:29)
[2020-05-23] MEDS: LACTULOSE 20 GM/30 ML UDC (FOR ORAL USE ONLY) PO SCH ×3 (15:29→22:15)
[2020-05-23] MEDS: hydrOXYzine PAMOATE 25 MG CAPSULE (FP) PO SCH ×3 (15:29→22:15)
[2020-05-23 15:31] LABS: BILIRUBIN,TOTAL 2.2 mg/dL (0.2-1); TOT PROT 6.6 g/dl (6.4-8.2)
[2020-05-23] MEDS: diazePAM 5 MG TABLET PO SCH ×3 (15:31→22:15)
[2020-05-23] MEDS ORDERED: LORazepam 2 MG TABLET PO SCH (17:00)
[2020-05-23] MEDS ORDERED: MELATONIN 5 MG TABLETS PO SCH (22:00)
[2020-05-23] MEDS: THIAMINE HCL 100 MG TABLET (FP) PO SCH (22:15)
[2020-05-24] MEDS ORDERED: LORazepam 1 MG TABLET PO SCH (05:00)
[2020-05-24] MEDS: hydrOXYzine PAMOATE 25 MG CAPSULE (FP) PO SCH ×3 (05:22→15:15)
[2020-05-24] MEDS: metFORMIN HCL 500 MG TABLET (FP) PO SCH (06:17)
[2020-05-24] MEDS: PRENATAL VITAMINS W/ FOLIC ACID TABLET (FP) PO SCH (10:13)
[2020-05-24] MEDS: diazePAM 5 MG TABLET PO SCH ×3 (10:13→17:47)
[2020-05-24] MEDS: LACTULOSE 20 GM/30 ML UDC (FOR ORAL USE ONLY) PO SCH ×4 (10:14→22:17)
[2020-05-24] MEDS: NICOTINE 14 MG/24 HOURS TOPICAL PATCH TD SCH (10:14)
[2020-05-24] MEDS ORDERED: hydrOXYzine PAMOATE 25 MG CAPSULE (FP) PO PRN (15:22)
[2020-05-24] MEDS: busPIRone HCL 10 MG TABLET (FP) PO SCH (22:17)
[2020-05-24] MEDS: THIAMINE HCL 100 MG TABLET (FP) PO SCH (22:17)
[2020-05-24] MEDS: diazePAM 5 MG TABLET PO PRN (22:17)
[2020-05-24] MEDS: SUVOREXANT 5 MG TABLET PO PRN (22:18)
[2020-05-25] MEDS ORDERED: LORazepam 0.5 MG TABLET PO PRN
[2020-05-25] MEDS ORDERED: LORazepam 0.5 MG TABLET PO SCH (05:00)
[2020-05-25] MEDS ORDERED: chlordiazePOXIDE HCL 25 MG CAPSULE PO SCH (05:00)
[2020-05-25] MEDS: metFORMIN HCL 500 MG TABLET (FP) PO SCH (06:54)
[2020-05-25] MEDS: LACTULOSE 20 GM/30 ML UDC (FOR ORAL USE ONLY) PO SCH ×4 (09:45→22:16)
[2020-05-25] MEDS: PRENATAL VITAMINS W/ FOLIC ACID TABLET (FP) PO SCH (09:45)
[2020-05-25] MEDS: NICOTINE 14 MG/24 HOURS TOPICAL PATCH TD SCH (09:45)
[2020-05-25] MEDS: busPIRone HCL 10 MG TABLET (FP) PO SCH ×2 (09:45→22:16)
[2020-05-25] MEDS: NICOTINE POLACRILEX 2 MG GUM BUC PRN ×2 (16:18→19:35)
[2020-05-25] MEDS: diazePAM 5 MG TABLET PO PRN ×2 (17:11→22:16)
[2020-05-25] MEDS: THIAMINE HCL 100 MG TABLET (FP) PO SCH (22:16)
[2020-05-25] MEDS: SUVOREXANT 5 MG TABLET PO PRN (22:17)
[2020-05-26] MEDS ORDERED: chlordiazePOXIDE HCL 10 MG CAPSULE PO PRN
[2020-05-26] MEDS ORDERED: chlordiazePOXIDE HCL 10 MG CAPSULE PO SCH (05:00)
[2020-05-26] MEDS ORDERED: diazePAM 5 MG TABLET PO SCH ×2 (06:00→10:00)
[2020-05-26] MEDS: metFORMIN HCL 500 MG TABLET (FP) PO SCH (06:25)
[2020-05-26 09:25] VITALS: BP 142/80; PULSE 88; TEMP 98.4
[2020-05-26 10:47] LABS: EOS % 4.1 % (0-4.5); HEMOGLOBIN 13.8 GM/dL (11.7-16.9); LYMPH % 32.4 % (8-40); MCH 32.6 pg (25.7-33.7); MCHC 35.4 g/dl (32.0-35.9); MEAN PLT VOLUME 9.8 fl (7.5-11.1); MONO % 13.1 % (3.8-10.2); NEUT % 49.4 % (42.8-82.8); PLATELET COUNT 38 K/MM3 (134-434); POTASSIUM 3.8 mmol/L (3.5-5.1); RBC 4.24 M/mm3 (4.00-5.60); RDW 15.3 % (11.9-15.9); WHITE BLOOD COUNT 2.6 K/mm3 (4.0-10.0)
[2020-05-26 10:54] LABS: ALBUMIN 2.8 g/dl (3.4-5.0); BLOOD UREA NITROGEN 5.5 mg/dL (7-18); CALCIUM 8.2 mg/dL (8.5-10.1)
[2020-05-26 10:57] LABS: CREATININE 0.5 mg/dL (0.55-1.3)
[2020-05-26 10:58] LABS: TOT PROT 6.4 g/dl (6.4-8.2)
[2020-05-26 11:03] LABS: BILIRUBIN,TOTAL 3.4 mg/dL (0.2-1)
[2020-05-26 13:59] LABS: HEMATOCRIT 42.3 % (35.4-49); HEMOGLOBIN 14.6 GM/dL (11.7-16.9); MCH 32.2 pg (25.7-33.7); MCHC 34.6 g/dl (32.0-35.9); MEAN CELL VOLUME 93.2 fl (80-96); MEAN PLT VOLUME 9.8 fl (7.5-11.1); PLATELET COUNT 41 K/MM3 (134-434); POTASSIUM 4.5 mmol/L (3.5-5.1); RBC 4.53 M/mm3 (4.00-5.60); RDW 15.3 % (11.9-15.9); WHITE BLOOD COUNT 3.1 K/mm3 (4.0-10.0)
[2020-05-26 14:08] LABS: CALCIUM 9.2 mg/dL (8.5-10.1)
[2020-05-26 14:09] LABS: ALBUMIN 3.1 g/dl (3.4-5.0); BLOOD UREA NITROGEN 5.9 mg/dL (7-18)
[2020-05-26 14:10] LABS: CREATININE 0.6 mg/dL (0.55-1.3)
[2020-05-26 14:13] LABS: BILIRUBIN,TOTAL 3.7 mg/dL (0.2-1); TOT PROT 7.3 g/dl (6.4-8.2)
[2020-05-27] MEDS ORDERED: chlordiazePOXIDE HCL 10 MG CAPSULE PO SCH (05:00)
[2020-05-27] MEDS ORDERED: diazePAM 5 MG TABLET PO SCH (10:00)
[2020-05-28] MEDS ORDERED: chlordiazePOXIDE HCL 10 MG CAPSULE PO ONE (05:00)
== END 2020-05-26 09:50 | disposition home or self-care (01) | DRG 774 ==
LOC: YASAS 11:45 → Y3N 13:28
PROVIDERS: ADMIT Allergy & Immunology; ATTEND Allergy & Immunology
PROC: HZ2ZZZZ Detoxification Services for Substance Abuse Treatment (ICD-10-PCS; principal; 2020-05-23)
DX: F10.230 Alcohol dependence with withdrawal, uncomplicated (principal); F14.10 Cocaine abuse, uncomplicated; F17.210 Nicotine dependence, cigarettes, uncomplicated; F19.24 Other psychoactive substance dependence with psychoactive substance-induced mood disorder; F41.9 Anxiety disorder, unspecified; F32.9 Major depressive disorder, single episode, unspecified; E72.20 Disorder of urea cycle metabolism, unspecified; D61.818 Other pancytopenia; D69.6 Thrombocytopenia, unspecified; G47.00 Insomnia, unspecified; I10 Essential (primary) hypertension; K70.30 Alcoholic cirrhosis of liver without ascites; K21.9 Gastro-esophageal reflux disease without esophagitis; E11.9 Type 2 diabetes mellitus without complications; Z79.4 Long term (current) use of insulin; R74.8 Abnormal levels of other serum enzymes; E66.01 Morbid (severe) obesity due to excess calories; Z68.43 Body mass index [BMI] 50.0-59.9, adult; Z88.8 Allergy status to other drugs, medicaments and biological substances; Z87.19 Personal history of other diseases of the digestive system; Z91.14 Patient's other noncompliance with medication regimen
CPT/HCPCS: 36415; 80053; 82140; 82962; 85025; 85027; 86780; C9803; Q0162; U0003

== ENCOUNTER 2020-06-16 12:35 | Inpatient (IN) | payer OTHER ==
[2020-06-16 13:55] VITALS: BMI 50.5
[2020-06-16] MEDS ORDERED: IBUPROFEN 400 MG TABLET (FP) PO PRN (14:22)
[2020-06-16] MEDS ORDERED: METHOCARBAMOL 500 MG TABLET PO PRN (14:22)
[2020-06-16] MEDS ORDERED: MAG HYDROX/AL HYDROX/SIMETH 30 ML UNIT-DOSE CUP PO PRN (14:22)
[2020-06-16] MEDS ORDERED: BISMUTH SUBSALICYLATE 262 MG/15 ML BTL PO PRN (14:22)
[2020-06-16] MEDS ORDERED: MAGNESIUM CITRATE 300 ML BOTTLE PO PRN (14:22)
[2020-06-16] MEDS ORDERED: MENTHOL/PHENOL 1 EACH UD MM PRN (14:22)
[2020-06-16] MEDS ORDERED: ACETAMINOPHEN 325 MG TABLET (FP) PO PRN ×2 (14:22)
[2020-06-16] MEDS ORDERED: diazePAM 5 MG TABLET PO PRN (14:22)
[2020-06-16] MEDS ORDERED: ONDANSETRON *ODT* 4 MG TABLET SL PRN (14:22)
[2020-06-16] MEDS ORDERED: MAGNESIUM HYDROX 2400MG/30ML ORAL SUSPENSION 30 ML CUP PO PRN (14:22)
[2020-06-16] MEDS ORDERED: INSULIN (NOVOLOG) ASPART 100 UNITS/ML 10ML VIAL ONE ×3 (15:53→22:10)
[2020-06-16] MEDS: INSULIN SLIDING SCALE (NOVOLOG) 1 VIAL SQ SCH ×2 (16:17→22:42)
[2020-06-16] MEDS: metFORMIN HCL 500 MG TABLET (FP) PO SCH (17:11)
[2020-06-16] MEDS: PRENATAL VITAMINS W/ FOLIC ACID TABLET (FP) PO SCH (17:11)
[2020-06-16] MEDS: NICOTINE 21 MG/24 HOURS TOPICAL PATCH TD SCH (17:11)
[2020-06-16] MEDS: diazePAM 5 MG TABLET PO SCH ×2 (17:11→22:43)
[2020-06-16] MEDS: NICOTINE POLACRILEX 2 MG GUM BUC PRN (17:12)
[2020-06-16 17:49] LABS: POTASSIUM 3.8 mmol/L (3.5-5.1)
[2020-06-16 17:53] LABS: ALBUMIN 2.7 g/dl (3.4-5.0); BLOOD UREA NITROGEN 6.3 mg/dL (7-18)
[2020-06-16 17:56] LABS: HEMATOCRIT 40.6 % (35.4-49); HEMOGLOBIN 13.7 GM/dL (11.7-16.9); MCH 31.7 pg (25.7-33.7); MCHC 33.8 g/dl (32.0-35.9); MEAN CELL VOLUME 93.7 fl (80-96); MEAN PLT VOLUME 9.3 fl (7.5-11.1); PLATELET COUNT 44 K/MM3 (134-434); RBC 4.33 M/mm3 (4.00-5.60); RDW 15.3 % (11.9-15.9)
[2020-06-16 17:57] LABS: CREATININE 0.6 mg/dL (0.55-1.3)
[2020-06-16 17:58] LABS: BILIRUBIN,TOTAL 1.8 mg/dL (0.2-1)
[2020-06-16 17:59] LABS: TOT PROT 6.9 g/dl (6.4-8.2)
[2020-06-16] MEDS: hydrOXYzine PAMOATE 25 MG CAPSULE (FP) PO SCH ×2 (18:34→22:42)
[2020-06-16] MEDS: THIAMINE HCL 100 MG TABLET (FP) PO SCH (22:41)
[2020-06-16] MEDS: MELATONIN 5 MG TABLETS PO SCH (22:42)
[2020-06-17] MEDS: hydrOXYzine PAMOATE 25 MG CAPSULE (FP) PO SCH (05:23)
[2020-06-17] MEDS: diazePAM 5 MG TABLET PO SCH ×4 (05:23→22:15)
[2020-06-17] MEDS ORDERED: INSULIN (NOVOLOG MIX 70/30) 100 UNITS/ML MDV SQ ONE (07:56)
[2020-06-17] MEDS: INSULIN SLIDING SCALE (NOVOLOG) 1 VIAL SQ SCH ×4 (08:20→22:20)
[2020-06-17] MEDS ORDERED: hydrOXYzine PAMOATE 25 MG CAPSULE (FP) PO PRN (08:46)
[2020-06-17] MEDS: PRENATAL VITAMINS W/ FOLIC ACID TABLET (FP) PO SCH (10:13)
[2020-06-17] MEDS: metFORMIN HCL 500 MG TABLET (FP) PO SCH (10:13)
[2020-06-17] MEDS: NICOTINE 21 MG/24 HOURS TOPICAL PATCH TD SCH (10:14)
[2020-06-17] MEDS: NICOTINE POLACRILEX 2 MG GUM BUC PRN (10:18)
[2020-06-17] MEDS ORDERED: INSULIN SLIDING SCALE (NOVOLOG) 1 VIAL SQ ONE (12:07)
[2020-06-17] MEDS ORDERED: INSULIN (NOVOLOG) ASPART 100 UNITS/ML 10ML VIAL ONE ×2 (17:12→22:17)
[2020-06-17] MEDS: MELATONIN 5 MG TABLETS PO SCH (22:14)
[2020-06-17] MEDS: THIAMINE HCL 100 MG TABLET (FP) PO SCH (22:15)
[2020-06-17] MEDS: CALCIUM 500MG/VIT-D 200 UNITS COMBO TABLET (FP) PO SCH (22:15)
[2020-06-17] MEDS: SUVOREXANT 10 MG TABLET PO PRN (22:18)
[2020-06-18] MEDS: diazePAM 5 MG TABLET PO SCH ×3 (05:33→22:14)
[2020-06-18] MEDS: INSULIN SLIDING SCALE (NOVOLOG) 1 VIAL SQ SCH ×4 (07:43→22:17)
[2020-06-18] MEDS: metFORMIN HCL 500 MG TABLET (FP) PO SCH (10:09)
[2020-06-18] MEDS: NICOTINE 21 MG/24 HOURS TOPICAL PATCH TD SCH (10:09)
[2020-06-18] MEDS: CALCIUM 500MG/VIT-D 200 UNITS COMBO TABLET (FP) PO SCH ×2 (10:09→22:14)
[2020-06-18] MEDS: PRENATAL VITAMINS W/ FOLIC ACID TABLET (FP) PO SCH (10:09)
[2020-06-18] MEDS ORDERED: INSULIN (NOVOLOG) ASPART 100 UNITS/ML 10ML VIAL ONE ×3 (10:13→22:19)
[2020-06-18] MEDS: NICOTINE POLACRILEX 2 MG GUM BUC PRN (16:58)
[2020-06-18] MEDS: SUVOREXANT 10 MG TABLET PO PRN (22:15)
[2020-06-18] MEDS: THIAMINE HCL 100 MG TABLET (FP) PO SCH (22:15)
[2020-06-18] MEDS: MELATONIN 5 MG TABLETS PO SCH (22:15)
[2020-06-19] MEDS ORDERED: diazePAM 5 MG TABLET PO SCH (06:00)
[2020-06-19 06:08] VITALS: BP 146/86; PULSE 72; TEMP 96.9
[2020-06-19] MEDS: INSULIN SLIDING SCALE (NOVOLOG) 1 VIAL SQ SCH (08:00)
[2020-06-19] MEDS ORDERED: INSULIN (NOVOLOG) ASPART 100 UNITS/ML 10ML VIAL ONE (08:06)
[2020-06-19] MEDS ORDERED: metFORMIN HCL 500 MG TABLET (FP) PO SCH (16:30)
[2020-06-20] MEDS ORDERED: diazePAM 5 MG TABLET PO ONE (06:00)
== END 2020-06-19 09:51 | disposition home or self-care (01) | DRG 774 ==
LOC: YASAS 12:35 → Y6N 15:17
PROVIDERS: ADMIT Allergy & Immunology; ATTEND Allergy & Immunology
PROC: HZ2ZZZZ Detoxification Services for Substance Abuse Treatment (ICD-10-PCS; principal; 2020-06-16)
DX: F10.230 Alcohol dependence with withdrawal, uncomplicated (principal); F14.10 Cocaine abuse, uncomplicated; F17.210 Nicotine dependence, cigarettes, uncomplicated; F19.280 Other psychoactive substance dependence with psychoactive substance-induced anxiety disorder; F19.282 Other psychoactive substance dependence with psychoactive substance-induced sleep disorder; F19.24 Other psychoactive substance dependence with psychoactive substance-induced mood disorder; F41.9 Anxiety disorder, unspecified; D69.6 Thrombocytopenia, unspecified; E80.6 Other disorders of bilirubin metabolism; E11.9 Type 2 diabetes mellitus without complications; Z79.84 Long term (current) use of oral hypoglycemic drugs; I10 Essential (primary) hypertension; K70.30 Alcoholic cirrhosis of liver without ascites; K21.9 Gastro-esophageal reflux disease without esophagitis; R74.01 Elevation of levels of liver transaminase levels; R74.8 Abnormal levels of other serum enzymes; Z87.19 Personal history of other diseases of the digestive system; Z88.8 Allergy status to other drugs, medicaments and biological substances
CPT/HCPCS: 36415; 80053; 82962; 85027; 86780; C9803; Q0162; U0003

== ENCOUNTER 2020-09-11 13:33 | Inpatient (IN) | payer OTHER ==
[2020-09-11 16:22] VITALS: BMI 49.6
[2020-09-11] MEDS ORDERED: BISMUTH SUBSALICYLATE 524 MG/30 ML PO PRN (16:42)
[2020-09-11] MEDS ORDERED: METHOCARBAMOL 500 MG TABLET PO PRN (16:42)
[2020-09-11] MEDS ORDERED: MAG HYDROX/AL HYDROX/SIMETH 30 ML UNIT-DOSE CUP PO PRN (16:42)
[2020-09-11] MEDS ORDERED: MAGNESIUM CITRATE 300 ML BOTTLE PO PRN (16:42)
[2020-09-11] MEDS ORDERED: MAGNESIUM HYDROX 2400MG/30ML ORAL SUSPENSION 30 ML CUP PO PRN (16:42)
[2020-09-11] MEDS ORDERED: MENTHOL/PHENOL 1 EACH UD MM PRN (16:42)
[2020-09-11] MEDS ORDERED: METOPROLOL TARTRATE 25 MG TABLET (FP) PO ONE (17:04)
[2020-09-11] MEDS: diazePAM 5 MG TABLET PO SCH ×2 (19:18→22:17)
[2020-09-11] MEDS: INSULIN SLIDING SCALE (NOVOLOG) 1 VIAL SQ SCH (19:29)
[2020-09-11] MEDS ORDERED: INSULIN (NOVOLOG) ASPART 100 UNITS/ML 10ML VIAL ONE (19:33)
[2020-09-11] MEDS: diazePAM 5 MG TABLET PO PRN (19:34)
[2020-09-11] MEDS ORDERED: MELATONIN 5 MG TABLETS PO SCH (22:00)
[2020-09-11] MEDS: THIAMINE HCL 100 MG TABLET (FP) PO SCH (22:18)
[2020-09-12] MEDS: diazePAM 5 MG TABLET PO PRN (03:38)
[2020-09-12] MEDS: diazePAM 5 MG TABLET PO SCH ×4 (05:43→22:06)
[2020-09-12] MEDS: ONDANSETRON *ODT* 4 MG TABLET SL PRN ×2 (05:47→20:14)
[2020-09-12] MEDS: metFORMIN HCL 500 MG TABLET (FP) PO SCH ×2 (06:58→17:38)
[2020-09-12] MEDS: INSULIN SLIDING SCALE (NOVOLOG) 1 VIAL SQ SCH ×2 (07:20→17:39)
[2020-09-12] MEDS: PRENATAL VITAMINS W/ FOLIC ACID TABLET (FP) PO SCH (10:16)
[2020-09-12] MEDS: IBUPROFEN 400 MG TABLET (FP) PO PRN ×2 (10:18→22:08)
[2020-09-12 11:41] LABS: CALCIUM 7.9 mg/dL (8.5-10.1)
[2020-09-12 11:42] LABS: ALBUMIN 2.5 g/dl (3.4-5.0); BLOOD UREA NITROGEN 4.2 mg/dL (7-18)
[2020-09-12 11:44] LABS: CREATININE 0.4 mg/dL (0.55-1.3); HEMATOCRIT 35.9 % (35.4-49); HEMOGLOBIN 12.8 GM/dL (11.7-16.9); MCH 32.9 pg (25.7-33.7); MCHC 35.7 g/dl (32.0-35.9); MEAN CELL VOLUME 92.2 fl (80-96); MEAN PLT VOLUME 9.4 fl (7.5-11.1); PLATELET COUNT 43 K/MM3 (134-434); RBC 3.89 M/mm3 (4.00-5.60); RDW 14.6 % (11.9-15.9); WHITE BLOOD COUNT 5.9 K/mm3 (4.0-10.0)
[2020-09-12 11:46] LABS: BILIRUBIN,TOTAL 3.5 mg/dL (0.2-1); TOT PROT 5.8 g/dl (6.4-8.2)
[2020-09-12] MEDS ORDERED: INSULIN (NOVOLOG) ASPART 100 UNITS/ML 10ML VIAL ONE (17:20)
[2020-09-12] MEDS: THIAMINE HCL 100 MG TABLET (FP) PO SCH (22:05)
[2020-09-13] MEDS: SUVOREXANT 10 MG TABLET PO PRN ×2 (01:13→22:14)
[2020-09-13] MEDS: diazePAM 5 MG TABLET PO SCH ×3 (05:22→22:14)
[2020-09-13] MEDS: metFORMIN HCL 500 MG TABLET (FP) PO SCH ×2 (06:19→17:20)
[2020-09-13] MEDS ORDERED: INSULIN (NOVOLOG) ASPART 100 UNITS/ML 10ML VIAL ONE (07:09)
[2020-09-13] MEDS: INSULIN SLIDING SCALE (NOVOLOG) 1 VIAL SQ SCH ×2 (07:11→17:20)
[2020-09-13] MEDS: IBUPROFEN 400 MG TABLET (FP) PO PRN (07:12)
[2020-09-13] MEDS: PRENATAL VITAMINS W/ FOLIC ACID TABLET (FP) PO SCH (10:05)
[2020-09-13] MEDS ORDERED: HYDROCORTISONE 1% TOPICAL CREAM 30 GM TUBE TP SCH (10:30)
[2020-09-13] MEDS: diazePAM 5 MG TABLET PO PRN (17:26)
[2020-09-13] MEDS: THIAMINE HCL 100 MG TABLET (FP) PO SCH (22:16)
[2020-09-14] MEDS: diazePAM 5 MG TABLET PO PRN (02:28)
[2020-09-14] MEDS ORDERED: diazePAM 5 MG TABLET PO SCH (06:00)
[2020-09-14] MEDS: metFORMIN HCL 500 MG TABLET (FP) PO SCH (06:47)
[2020-09-14] MEDS: INSULIN SLIDING SCALE (NOVOLOG) 1 VIAL SQ SCH (08:06)
[2020-09-14 09:19] VITALS: BP 127/52; PULSE 87; TEMP 97.3
[2020-09-15] MEDS ORDERED: diazePAM 5 MG TABLET PO ONE (06:00)
== END 2020-09-14 09:38 | disposition home or self-care (01) | DRG 775 ==
LOC: YASAS 13:33 → Y6N 18:18
PROVIDERS: ADMIT Allergy & Immunology; ATTEND Allergy & Immunology
PROC: HZ2ZZZZ Detoxification Services for Substance Abuse Treatment (ICD-10-PCS; principal; 2020-09-11)
DX: F10.230 Alcohol dependence with withdrawal, uncomplicated (principal); F13.230 Sedative, hypnotic or anxiolytic dependence with withdrawal, uncomplicated; F17.210 Nicotine dependence, cigarettes, uncomplicated; F19.282 Other psychoactive substance dependence with psychoactive substance-induced sleep disorder; F19.280 Other psychoactive substance dependence with psychoactive substance-induced anxiety disorder; F19.24 Other psychoactive substance dependence with psychoactive substance-induced mood disorder; F32.9 Major depressive disorder, single episode, unspecified; I10 Essential (primary) hypertension; E11.9 Type 2 diabetes mellitus without complications; Z79.4 Long term (current) use of insulin; K70.30 Alcoholic cirrhosis of liver without ascites; K21.9 Gastro-esophageal reflux disease without esophagitis; K70.10 Alcoholic hepatitis without ascites; E66.01 Morbid (severe) obesity due to excess calories; Z68.42 Body mass index [BMI] 45.0-49.9, adult; Z88.5 Allergy status to narcotic agent
CPT/HCPCS: 36415; 80053; 82962; 85027; 86780; 93005; 93010; C9803; Q0162; U0003; U0005

== ENCOUNTER 2020-12-20 13:02 | Inpatient (IN) | payer OTHER ==
[2020-12-20 14:04] VITALS: BMI 53.2
[2020-12-20] MEDS ORDERED: IBUPROFEN 400 MG TABLET (FP) PO PRN (16:39)
[2020-12-20] MEDS ORDERED: NICOTINE POLACRILEX 2 MG GUM BUC PRN (16:39)
[2020-12-20] MEDS ORDERED: MAGNESIUM CITRATE 300 ML BOTTLE PO PRN (16:39)
[2020-12-20] MEDS ORDERED: ONDANSETRON *ODT* 4 MG TABLET SL PRN (16:39)
[2020-12-20] MEDS ORDERED: MAG HYDROX/AL HYDROX/SIMETH 30 ML UNIT-DOSE CUP PO PRN (16:39)
[2020-12-20] MEDS ORDERED: MENTHOL/PHENOL 1 EACH UD MM PRN (16:39)
[2020-12-20] MEDS ORDERED: MAGNESIUM HYDROX 2400MG/30ML ORAL SUSPENSION 30 ML CUP PO PRN (16:39)
[2020-12-20] MEDS ORDERED: BISMUTH SUBSALICYLATE 524 MG/30 ML PO PRN (16:39)
[2020-12-20] MEDS ORDERED: ACETAMINOPHEN 325 MG TABLET (FP) PO PRN ×2 (16:39)
[2020-12-20] MEDS: hydrOXYzine PAMOATE 25 MG CAPSULE (FP) PO SCH ×2 (18:58→22:08)
[2020-12-20] MEDS: diazePAM 5 MG TABLET PO SCH ×2 (18:58→22:08)
[2020-12-20] MEDS: THIAMINE HCL 100 MG TABLET (FP) PO SCH (22:09)
[2020-12-20] MEDS: MELATONIN 5 MG TABLETS PO SCH (22:09)
[2020-12-21] MEDS: diazePAM 5 MG TABLET PO SCH ×4 (05:22→22:21)
[2020-12-21] MEDS: hydrOXYzine PAMOATE 25 MG CAPSULE (FP) PO SCH (05:22)
[2020-12-21] MEDS: metFORMIN HCL 500 MG TABLET (FP) PO SCH ×2 (06:20→17:47)
[2020-12-21 08:24] LABS: HEMATOCRIT 37.4 % (35.4-49); HEMOGLOBIN 13.3 GM/dL (11.7-16.9); MCH 33.7 pg (25.7-33.7); MCHC 35.5 g/dl (32.0-35.9); MEAN PLT VOLUME 9.1 fl (7.5-11.1); RBC 3.94 M/mm3 (4.00-5.60); RDW 14.8 % (11.9-15.9); WHITE BLOOD COUNT 2.8 K/mm3 (4.0-10.0)
[2020-12-21 09:06] LABS: PLATELET COUNT 29 10^3/uL (134-434)
[2020-12-21 09:09] LABS: ALBUMIN 2.2 g/dl (3.4-5.0); BLOOD UREA NITROGEN 4.3 mg/dL (7-18)
[2020-12-21 09:11] LABS: CALCIUM 7.5 mg/dL (8.5-10.1)
[2020-12-21 09:14] LABS: CREATININE 0.3 mg/dL (0.55-1.3); TOT PROT 5.6 g/dl (6.4-8.2)
[2020-12-21] MEDS: PRENATAL VITAMINS W/ FOLIC ACID TABLET (FP) PO SCH (10:11)
[2020-12-21] MEDS: hydrOXYzine PAMOATE 25 MG CAPSULE (FP) PO PRN (10:11)
[2020-12-21] MEDS: diazePAM 5 MG TABLET PO PRN (15:29)
[2020-12-21] MEDS: MELATONIN 5 MG TABLETS PO SCH (22:22)
[2020-12-21] MEDS: THIAMINE HCL 100 MG TABLET (FP) PO SCH (22:22)
[2020-12-21] MEDS: SUVOREXANT 10 MG TABLET PO PRN (22:23)
[2020-12-22] MEDS: diazePAM 5 MG TABLET PO SCH ×3 (05:20→22:17)
[2020-12-22] MEDS: metFORMIN HCL 500 MG TABLET (FP) PO SCH ×2 (07:19→16:33)
[2020-12-22 08:36] LABS: HEMATOCRIT 38.2 % (35.4-49); HEMOGLOBIN 13.6 GM/dL (11.7-16.9); MCH 33.4 pg (25.7-33.7); MCHC 35.5 g/dl (32.0-35.9); MEAN CELL VOLUME 94.2 fl (80-96); MEAN PLT VOLUME 9.1 fl (7.5-11.1); RBC 4.06 M/mm3 (4.00-5.60); RDW 14.3 % (11.9-15.9); WHITE BLOOD COUNT 3.1 K/mm3 (4.0-10.0)
[2020-12-22 09:04] LABS: INR 1.38 (0.83-1.09); PROTHROMBIN TIME (PATIENT) 16.6 SEC (9.7-13.0)
[2020-12-22 09:18] LABS: PLATELET COUNT 30 10^3/uL (134-434)
[2020-12-22 09:37] LABS: ALBUMIN 2.3 g/dl (3.4-5.0); CALCIUM 8.1 mg/dL (8.5-10.1)
[2020-12-22 09:39] LABS: CREATININE 0.3 mg/dL (0.55-1.3)
[2020-12-22 09:41] LABS: TOT PROT 5.8 g/dl (6.4-8.2)
[2020-12-22 09:53] LABS: BILIRUBIN,TOTAL 6.2 mg/dL (0.2-1)
[2020-12-22] MEDS: hydrOXYzine PAMOATE 25 MG CAPSULE (FP) PO PRN (10:26)
[2020-12-22] MEDS: METHOCARBAMOL 500 MG TABLET PO PRN (10:26)
[2020-12-22] MEDS: PRENATAL VITAMINS W/ FOLIC ACID TABLET (FP) PO SCH (10:26)
[2020-12-22] MEDS: ARTIFICIAL TEARS (POLYVINYL ALCOHOL) OPTH DROPS OU SCH ×2 (14:35→22:17)
[2020-12-22] MEDS: SUVOREXANT 10 MG TABLET PO PRN (22:16)
[2020-12-22] MEDS: THIAMINE HCL 100 MG TABLET (FP) PO SCH (22:17)
[2020-12-22] MEDS: MELATONIN 5 MG TABLETS PO SCH (22:17)
[2020-12-23] MEDS: diazePAM 5 MG TABLET PO SCH ×2 (05:45→17:39)
[2020-12-23] MEDS: metFORMIN HCL 500 MG TABLET (FP) PO SCH ×2 (07:18→17:30)
[2020-12-23] MEDS: ARTIFICIAL TEARS (POLYVINYL ALCOHOL) OPTH DROPS OU SCH ×3 (07:19→22:22)
[2020-12-23] MEDS: diazePAM 5 MG TABLET PO PRN (10:42)
[2020-12-23] MEDS: PRENATAL VITAMINS W/ FOLIC ACID TABLET (FP) PO SCH (10:43)
[2020-12-23] MEDS: hydrOXYzine PAMOATE 25 MG CAPSULE (FP) PO PRN (22:23)
[2020-12-23] MEDS: THIAMINE HCL 100 MG TABLET (FP) PO SCH (22:23)
[2020-12-23] MEDS: MELATONIN 5 MG TABLETS PO SCH (22:24)
[2020-12-23] MEDS: SUVOREXANT 10 MG TABLET PO PRN (22:24)
[2020-12-24] MEDS: METHOCARBAMOL 500 MG TABLET PO PRN (00:53)
[2020-12-24] MEDS ORDERED: diazePAM 5 MG TABLET PO ONE (06:00)
[2020-12-24] MEDS: metFORMIN HCL 500 MG TABLET (FP) PO SCH (06:22)
[2020-12-24] MEDS: ARTIFICIAL TEARS (POLYVINYL ALCOHOL) OPTH DROPS OU SCH (06:22)
[2020-12-24 09:59] VITALS: BP 127/70; PULSE 87; TEMP 96.8
== END 2020-12-24 09:15 | disposition home or self-care (01) | DRG 775 ==
LOC: YASAS 13:02 → Y3N 16:41
PROVIDERS: ADMIT Allergy & Immunology; ATTEND Allergy & Immunology
PROC: HZ2ZZZZ Detoxification Services for Substance Abuse Treatment (ICD-10-PCS; principal; 2020-12-20)
DX: F10.230 Alcohol dependence with withdrawal, uncomplicated (principal); F17.210 Nicotine dependence, cigarettes, uncomplicated; F12.280 Cannabis dependence with cannabis-induced anxiety disorder; I10 Essential (primary) hypertension; K21.9 Gastro-esophageal reflux disease without esophagitis; K70.30 Alcoholic cirrhosis of liver without ascites; E11.9 Type 2 diabetes mellitus without complications; Z79.4 Long term (current) use of insulin; E66.01 Morbid (severe) obesity due to excess calories; Z68.43 Body mass index [BMI] 50.0-59.9, adult; R74.8 Abnormal levels of other serum enzymes; Z88.8 Allergy status to other drugs, medicaments and biological substances; Z87.19 Personal history of other diseases of the digestive system
CPT/HCPCS: 36415; 80053; 82962; 85027; 85610; 86780; C9803; Q0162; U0003; U0005

== ENCOUNTER 2021-06-28 16:36 | Inpatient (IN) | payer OTHER ==
[2021-06-28 19:17] VITALS: BMI 62.5
[2021-06-28] MEDS ORDERED: NICOTINE 10 MG CARTRIDGE (INHALER) IH PRN (19:49)
[2021-06-28] MEDS ORDERED: MAG HYDROX/AL HYDROX/SIMETH 30 ML UNIT-DOSE CUP PO PRN (19:49)
[2021-06-28] MEDS ORDERED: MAGNESIUM HYDROX 2400MG/30ML ORAL SUSPENSION 30 ML CUP PO PRN (19:49)
[2021-06-28] MEDS ORDERED: MENTHOL/PHENOL 1 EACH UD MM PRN (19:49)
[2021-06-28] MEDS ORDERED: diazePAM 5 MG TABLET PO PRN (19:49)
[2021-06-28] MEDS ORDERED: ONDANSETRON *ODT* 4 MG TABLET SL PRN (19:49)
[2021-06-28] MEDS ORDERED: METHOCARBAMOL 500 MG TABLET PO PRN (19:49)
[2021-06-28] MEDS ORDERED: ACETAMINOPHEN 325 MG TABLET (FP) PO PRN ×2 (19:49)
[2021-06-28] MEDS ORDERED: LOPERAMIDE HCL 2 MG CAPSULE PO PRN (19:49)
[2021-06-28] MEDS ORDERED: MAGNESIUM CITRATE 300 ML BOTTLE PO PRN (19:49)
[2021-06-28] MEDS ORDERED: BISMUTH SUBSALICYLATE 524 MG/30 ML PO PRN (19:49)
[2021-06-28] MEDS ORDERED: IBUPROFEN 400 MG TABLET (FP) PO PRN (19:49)
[2021-06-28] MEDS ORDERED: ARTIFICIAL TEARS (POLYVINYL ALCOHOL) OPTH DROPS OU PRN (19:51)
[2021-06-28] MEDS ORDERED: THIAMINE HCL 100 MG TABLET (FP) PO SCH (22:00)
[2021-06-28] MEDS ORDERED: MELATONIN 5 MG TABLETS PO SCH (22:00)
[2021-06-29] MEDS: diazePAM 5 MG TABLET PO SCH ×4 (03:14→22:26)
[2021-06-29] MEDS: INSULIN SLIDING SCALE (NOVOLOG) 1 VIAL SQ SCH ×5 (03:16→22:24)
[2021-06-29] MEDS: hydrOXYzine PAMOATE 25 MG CAPSULE (FP) PO SCH ×5 (03:16→22:26)
[2021-06-29] MEDS ORDERED: diazePAM 5 MG TABLET ONE (05:32)
[2021-06-29] MEDS ORDERED: hydrOXYzine PAMOATE 25 MG CAPSULE (FP) PO ONE (05:32)
[2021-06-29] MEDS ORDERED: glipiZIDE 5 MG TABLET (FP) PO SCH (07:00)
[2021-06-29] MEDS ORDERED: LORazepam 1 MG TABLET PO PRN (09:41)
[2021-06-29] MEDS ORDERED: metFORMIN HCL 500 MG TABLET (FP) PO SCH (10:00)
[2021-06-29] MEDS ORDERED: PRENATAL VITAMINS W/ FOLIC ACID TABLET (FP) PO SCH (10:00)
[2021-06-29] MEDS ORDERED: LORazepam 2 MG TABLET PO SCH (11:00)
[2021-06-29 12:10] LABS: HEMATOCRIT 34.3 % (35.4-49); HEMOGLOBIN 11.9 GM/dL (11.7-16.9); MCH 34.7 pg (25.7-33.7); MCHC 34.8 g/dl (32.0-35.9); MEAN CELL VOLUME 99.8 fl (80-96); MEAN PLT VOLUME 9.3 fl (7.5-11.1); RBC 3.44 M/mm3 (4.00-5.60); RDW 15.1 % (11.9-15.9); WHITE BLOOD COUNT 7.9 K/mm3 (4.0-10.0)
[2021-06-29 12:15] LABS: CALCIUM 7.2 mg/dL (8.5-10.1)
[2021-06-29 12:16] LABS: ALBUMIN 1.4 g/dl (3.4-5.0); BLOOD UREA NITROGEN 8.8 mg/dL (7-18)
[2021-06-29 12:20] LABS: CREATININE 0.9 mg/dL (0.55-1.3); PLATELET COUNT 30 10^3/uL (134-434)
[2021-06-29 12:21] LABS: BILIRUBIN,TOTAL 6.1 mg/dL (0.2-1); TOT PROT 6.3 g/dl (6.4-8.2)
[2021-06-29] MEDS ORDERED: diazePAM 5 MG TABLET PO PRN (15:39)
[2021-06-29] MEDS ORDERED: MAGNESIUM HYDROX 2400MG/30ML ORAL SUSPENSION 30 ML CUP PO PRN (15:41)
[2021-06-29] MEDS ORDERED: NICOTINE 10 MG CARTRIDGE (INHALER) IH PRN (15:41)
[2021-06-29] MEDS ORDERED: METHOCARBAMOL 500 MG TABLET PO PRN (15:41)
[2021-06-29] MEDS ORDERED: MAG HYDROX/AL HYDROX/SIMETH 30 ML UNIT-DOSE CUP PO PRN (15:41)
[2021-06-29] MEDS ORDERED: BISMUTH SUBSALICYLATE 524 MG/30 ML PO PRN (15:41)
[2021-06-29] MEDS ORDERED: MENTHOL/PHENOL 1 EACH UD MM PRN (15:41)
[2021-06-29] MEDS ORDERED: ACETAMINOPHEN 325 MG TABLET (FP) PO PRN ×2 (15:41)
[2021-06-29] MEDS ORDERED: LOPERAMIDE HCL 2 MG CAPSULE PO PRN (15:41)
[2021-06-29] MEDS ORDERED: MAGNESIUM CITRATE 300 ML BOTTLE PO PRN (15:41)
[2021-06-29] MEDS ORDERED: IBUPROFEN 400 MG TABLET (FP) PO PRN (15:41)
[2021-06-29] MEDS ORDERED: ONDANSETRON *ODT* 4 MG TABLET SL PRN (15:41)
[2021-06-29] MEDS ORDERED: SUVOREXANT 10 MG TABLET PO PRN (22:00)
[2021-06-29] MEDS ORDERED: THIAMINE HCL 100 MG TABLET (FP) PO SCH (22:00)
[2021-06-29] MEDS ORDERED: MELATONIN 5 MG TABLETS PO SCH (22:00)
[2021-06-30] MEDS: diazePAM 5 MG TABLET PO SCH ×3 (05:31→17:50)
[2021-06-30] MEDS: hydrOXYzine PAMOATE 25 MG CAPSULE (FP) PO SCH ×3 (05:31→15:28)
[2021-06-30] MEDS ORDERED: diazePAM 5 MG TABLET PO SCH (06:00)
[2021-06-30] MEDS: INSULIN SLIDING SCALE (NOVOLOG) 1 VIAL SQ SCH ×3 (07:10→17:23)
[2021-06-30] MEDS ORDERED: PRENATAL VITAMINS W/ FOLIC ACID TABLET (FP) PO SCH (10:00)
[2021-06-30 12:29] LABS: CHLORIDE 100 mmol/L (98-107); SODIUM 133 mmol/L (136-145)
[2021-06-30 12:35] LABS: ALBUMIN 1.2 g/dl (3.4-5.0); ANION GAP 6 MMOL/L (8-16); BLOOD UREA NITROGEN 7.8 mg/dL (7-18); CO2 28 mmol/L (21-32); GLUCOSE,RANDOM 95 mg/dL (74-106)
[2021-06-30 12:38] LABS: CREATININE 0.7 mg/dL (0.55-1.3); SGOT/AST 236 U/L (15-37); SGPT/ALT 55 U/L (13-61)
[2021-06-30 12:40] LABS: BILIRUBIN,TOTAL 6.4 mg/dL (0.2-1); TOT PROT 5.3 g/dl (6.4-8.2)
[2021-06-30 12:41] LABS: ALK PHOS 190 U/L (45-117)
[2021-06-30 12:43] LABS: HEMATOCRIT 33.2 % (35.4-49); HEMOGLOBIN 11.6 GM/dL (11.7-16.9); MCH 34.9 pg (25.7-33.7); MEAN CELL VOLUME 99.7 fl (80-96); MEAN PLT VOLUME 9.6 fl (7.5-11.1); RBC 3.33 M/mm3 (4.00-5.60); RDW 15.3 % (11.9-15.9); WHITE BLOOD COUNT 5.6 K/mm3 (4.0-10.0)
[2021-06-30 12:56] LABS: PLATELET COUNT 33 10^3/uL (134-434)
[2021-06-30 13:05] LABS: CALCIUM 6.9 mg/dL (8.5-10.1)
[2021-06-30 14:48] LABS: ANISOCYTOSIS 0; MACROCYTOSIS 0
[2021-06-30 18:10] VITALS: BP 139/64; PULSE 120; TEMP 98.4
[2021-06-30] MEDS ORDERED: CALCIUM 500MG/VIT-D 200 UNITS COMBO TABLET (FP) PO SCH (18:15)
[2021-07-01] MEDS ORDERED: LORazepam 1 MG TABLET PO SCH (05:00)
[2021-07-01] MEDS ORDERED: diazePAM 5 MG TABLET PO SCH ×2 (06:00)
[2021-07-01 10:06] LABS: SARS-CoV-2 NAA Not Detected (Not Detected)
[2021-07-02] MEDS ORDERED: LORazepam 0.5 MG TABLET PO PRN
[2021-07-02] MEDS ORDERED: LORazepam 0.5 MG TABLET PO SCH (05:00)
[2021-07-02] MEDS ORDERED: diazePAM 5 MG TABLET PO SCH (06:00)
[2021-07-02] MEDS ORDERED: diazePAM 5 MG TABLET PO ONE (06:00)
[2021-07-03] MEDS ORDERED: LORazepam 0.5 MG TABLET PO ONE (05:00)
[2021-07-03] MEDS ORDERED: diazePAM 5 MG TABLET PO ONE (06:00)
== END 2021-06-30 20:13 | disposition short-term general hospital (02) | DRG 775 ==
LOC: YASAS 16:36 → Y3N 06-29 12:13
PROVIDERS: ADMIT Allergy & Immunology; ATTEND Allergy & Immunology
PROC: HZ2ZZZZ Detoxification Services for Substance Abuse Treatment (ICD-10-PCS; principal; 2021-06-29)
DX: F10.230 Alcohol dependence with withdrawal, uncomplicated (principal); F17.290 Nicotine dependence, other tobacco product, uncomplicated; F41.9 Anxiety disorder, unspecified; E66.01 Morbid (severe) obesity due to excess calories; Z68.44 Body mass index [BMI] 60.0-69.9, adult; I10 Essential (primary) hypertension; E11.9 Type 2 diabetes mellitus without complications; Z79.84 Long term (current) use of oral hypoglycemic drugs; R94.5 Abnormal results of liver function studies; Z87.19 Personal history of other diseases of the digestive system; Z88.8 Allergy status to other drugs, medicaments and biological substances
CPT/HCPCS: 36415; 80048; 80053; 82962; 85025; 85027; 86780; 87811; 93005; 93010; C9803-CS; U0003; U0005